=== PATIENT | male | born 1960 | race Caucasian/White ===

== ENCOUNTER 2023-04-10 08:07 | Outpatient (OUT) | payer SELFPAY ==
[2023-04-11 05:05] LABS: PSA, Free 0.93 ng/mL; Prostate Specific Ag 6.9 ng/mL (0.0-4.0)
== END 2023-04-10 08:08 | disposition home or self-care (01) ==
PROVIDERS: PCP Family Medicine; Visit Provider Family Medicine
DX: R97.20 Elevated prostate specific antigen [PSA] (principal)
CPT/HCPCS: 36415; 84153; 84154

== ENCOUNTER 2023-04-10 08:08 | Outpatient (OUT) | payer SELFPAY ==
[2023-04-10 08:33] LABS: INR 1.67; Prothrombin Time 17.2 sec (9.0-11.6)
== END 2023-04-10 08:09 | disposition home or self-care (01) ==
PROVIDERS: PCP Family Medicine; Visit Provider Family Medicine
DX: Z51.81 Encounter for therapeutic drug level monitoring (principal)
CPT/HCPCS: 36415; 85610

== ENCOUNTER 2023-07-29 09:09 | Outpatient (OUT) | payer SELFPAY ==
[2023-07-29 09:54] LABS: INR 3.49; Prothrombin Time 34.5 sec (9.0-11.6)
[2023-07-30 04:07] LABS: PSA, Free 1.02 ng/mL; Prostate Specific Ag 7.9 ng/mL (0.0-4.0)
== END 2023-07-29 09:10 | disposition home or self-care (01) ==
LOC: LAB 09:09
PROVIDERS: PCP Family Medicine; Visit Provider Family Medicine
DX: Z12.5 Encounter for screening for malignant neoplasm of prostate (principal); R97.20 Elevated prostate specific antigen [PSA]; Z51.81 Encounter for therapeutic drug level monitoring
CPT/HCPCS: 36415; 84153; 84154; 85610

== ENCOUNTER 2023-09-02 07:09 | Outpatient (OUT) | payer SELFPAY ==
--- NOTE | 2023-09-02 07:00 | NM_ITS ---
The [address] [address] Patient Name: SUKHDEEP POLANCO MRN: [id number] date: 1960 Sex: M Assigned Patient Location: CT Current Patient Location: CT Accession/Order Number: [id number] Exam Date: 09/02/2023 07:00 Report Date: 09/02/2023 11:25 At the request of: CESIA WEEKS Procedure: CT bone scan whole body EXAMINATION: CT bone scan whole body HISTORY: PROSTATE CANCER COMPARISON: No relevant comparison available. TECHNIQUE: After obtaining the patient's consent, 25.0 Technetium 99m MDP was injected intravenously. Images were obtained approximately two hours later. FINDINGS: Region: Whole-body ABNORMALITIES: Increased activity bilateral glenohumeral, acromioclavicular, wrist and right first metatarsal-phalangeal joint consistent with degenerative changes. Photopenia in the right hip consistent with arthroplasty. No focal areas of abnormality to suggest metastatic disease to the bones OTHER: Negative. CT/CT bone scan whole body IMPRESSION: No definite evidence of metastatic disease to the bones Electronically authenticated by: TRAVIS LI Date: 09/02/2023 11:25
--- OUTSIDE RECORDS SUMMARY | 2023-09-02 07:19 | XMS_ITS | CCD ---
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 Name Role Phone ELTANENITA, EHAB A Admitting Unavailable JANELL HUFFAB A Attending Unavailable ALEK ARTIS Primary Care Unavailable ALEK ARTIS Referring Unavailable Unavailable Primary Care Provider Alek Masterson MD Primary Care Provider ALEK ARTIS Primary Care Unavailable CARYL ACEVEDO Admitting Unavailable CARYL ACEVEDO Attending Unavailable [facility], [facility] Consulting Unavailable CARYL ACEVEDO Referring Unavailable ALEK ARTIS Primary Care Unavailable KUSHAL, DR GASTON Primary Care Unavailable MISC, DR BUSCH Admitting Unavailable MISC, DR BUSCH Attending Unavailable KUSHAL, DR GASTON Primary Care Unavailable KUSHAL, DR GASTON Admitting Unavailable DEVANGY, DR GASTON Attending Unavailable DEVANGY, DR GASTON Consulting Unavailable HOY, DR GASTON Primary Care Unavailable HOY, DR GASTON Admitting Unavailable KUSHAL, DR GASTON Attending Unavailable KUSHAL, DR GASTON Consulting Unavailable ZIEBER, DR ALL Hernández Consulting Unavailable AIMEE CLEMENT Attending Unavailable Alek Artis Primary Care Physician MD Chadd Bowling Attending Provider Chadd BOWLING Attending Unavailable Chadd BOWLING Attending Unavailable Alek Artis Referring Unavailable Chadd BOWLING Attending Unavailable Chadd Bowling Attending Unavailable Chadd Bowling Admitting Unavailable Allergies Allergy Classification Reported Allergen(s) Allergy Type Date of Onset Reaction(s) Facility Unclassified (1 source) 34748,00; Translations: [,00] Propensity to adverse reactions (disorder) 9 [facility] Repository (1 source) No Known Medication Allergies; Translations: [No Known Medication Allergies] Propensity to adverse reactions (disorder) [facility] Repository Medications Current Medications Medication Drug Class(es) Dates Sig (Normalized) Sig (Original) 30 ACTUAT fluticasone furoate 0.05 MG/ACTUAT / vilanterol 0.025 MG/ACTUAT Dry Powder Inhaler (3 sources) Start: 08-10-2023 take 1 puff(s) by inhalation once daily fluticasone-vilan terol 50 mcg-25 mcg/inh. inhalation powder puff(s), Inhalation, Daily, Refill(s) 0 Start Date: 08/10/23 Status: Ordered carvedilol 25 mg oral tablet (4 sources) alpha-Adrenergic Jazmyn, beta-Adrenergic Jazmyn Start: 08-10-2023 carvedilol 25 mg Tab Refills(s) 0 Start Date: 08/10/23 Status: Ordered take 1 tablet by mouth twice fernando ly carvediloL (COREG) 25 mg tablet Take 25 mg by mouth 2 (two) times a day. 0 Suspended ciprofloxacin 500 mg oral tablet (1 source) Quinolone Antimicrobial Start: 08-10-2023 End: 08-17-2023 Cipro 500 mg Tab 500 mg = 1 tab(s), Oral, BID, start 3 days prior to procedure, X 7 day(s), # 14 tab(s), Refills(s) 0, Pharmacy: [id number], 178, cm, 08/10/23 11:30:00 EST, Height/Length Dosing, 88.5, kg, 08/10/23 11:30:00 EST, Weight Dosing Start Date: 08/10/23 Stop Date: 08/17/23 Status: Ordered DilTIAZem (Eqv-Cardizem CD) 120 mg/24 hours oral capsule, extended release (3 sources) Start: 08-10-2023 DilTIAZem (Eqv-Cardizem CD) 120 mg/24 hours oral capsule, extended release Refills(s) 0 Start Date: 08/10/23 Status: Ordered lisinopril 10 mg oral tablet (3 sources) Angiotensin Converting Enzyme Inhibitor Start: 08-10-2023 lisinopril 10 mg Tab Refills(s) 0 Start Date: 08/10/23 Status: Ordered pravastatin sodium 40 mg oral tablet (4 sources) HMG-CoA Reductase Inhibitor Start: 08-10-2023 pravastatin 40 mg Ta b Refills(s) 0 Start Date: 08/10/23 Status: Ordered take 1 tablet by mouth at bedtim e pravastatin (PRAVACHOL) 40 mg tablet Take 40 mg by mouth at bedtime. 0 Suspended tamsulosin hydrochloride 0.4 mg oral capsule (3 sources) alpha-Adrenergic Jazmyn Start: 08-10-2023 take 1 capsule by mouth once daily tamsulosin 0.4 mg Cap 0.4 mg = 1 cap(s), Oral, Daily, # 30 cap(s), Refills(s) 11, Pharmacy: [id number], 178, cm, 08/10/23 11:30:00 EST, Height/Length Dosing, 88.5, kg, 08/10/23 11:30:00 EST, Weight Dosing Start Date: 08/10/23 Status: Ordered warfarin sodium 6 mg oral tablet (4 sources) Vitamin K Antagonist Start: 08-10-2023 warfarin 6 mg Tab Refills(s) 0 Start Date: 08/10/23 Status: Ordered take 1 tablet by mouth at bedtim e warfarin (COUMADIN) 6 mg tablet Take 6 mg by mouth at bedtime. 0 Suspended Completed/Discontinued Medications Medication Drug Class(es) Dates Sig (Normalized) Sig (Original) aspirin 81 mg oral tablet (1 source) Platelet Aggregation Inhibitor, Nonsteroidal Anti-inflammatory Drug take 81 mg by mouth once daily ASPIRIN ORAL Take 81 mg by mouth 1 (one) time each day. 0 Suspended Beclomethasone (1 source) Corticosteroid take 2 puff(s) by mouth twice daily beclomethasone (QVAR) 40 mcg/actuation inhaler Inhale 2 puffs 2 (two) times a day. Rinse mouth with water after use to reduce aftertaste and incidence of candidiasis. Do not swallow. 0 Suspended 24 hr dilTIAZem hydrochloride 120 mg extended release oral capsule (1 source) Calcium Channel Jazmyn take 1 capsule by mouth at bedtime, then take 1 capsule by mouth every twenty-four hours dilTIAZem CD (CARDIZEM CD) 120 mg 24 hr capsule Take 120 mg by mouth at bedtime. 0 Suspended fluticasone propionate 0.05 mg/actuat metered dose nasal spray (1 source) Corticosteroid take 1 spray(s) nasal route twice daily fluticasone propionate (Flonase Allergy Relief) 50 mcg/actuation nasal spray Administer 1 spray into each nostril 2 (two) times a day. Shake gently. Before first use, prime pump. After use, clean tip and replace cap. 0 Suspended sacubitril 24 mg / valsartan 26 mg oral tablet (1 source) Angiotensin 2 Receptor Jazmyn take 1 tablet by mouth twice daily sacubitriL-valsartan (ENTRESTO) 24-26 mg per tablet Take 1 tablet by mouth 2 (two) times a day. 0 Suspended Problems Problem Classification Problem Date Documented Date Episodic/Chronic Abdominal hernia (6 sources) Inguinal hernia; Translations: [Unilateral inguinal hernia, without obstruction or gangrene, not specified as recurrent] Onset: 08-10-2023 Episodic Asthma (3 sources) Asthma 08-10-2023 Chronic Cancer of prostate (2 sources) Malignant neoplasm of prostate; Translations: [Malignant tumor of prostate] Onset: 08-31-2023 Chronic Cardiac dysrhythmias (7 sources) Paroxysmal atrial fibrillation; Translations: [Unspecified atrial fibrillation] Onset: 01-02-2023 Chronic Congestive heart failure; nonhypertensive (2 sources) Chronic systolic (congestive) heart failure; Translations: [Chronic systolic (congestive) heart failure] Onset: 01-02-2023 Chronic Coronary atherosclerosis and other heart disease (4 sources) Atherosclerotic heart disease of [place] coronary artery without angina pectoris; Translations: [Coronary atherosclerosis due to lipid rich plaque] Onset: 01-02-2023 Chronic Disorders of lipid metabolism (2 sources) Mixed hyperlipidemia; Translations: [Mixed hyperlipidemia] Onset: 01-02-2023 Chronic Essential hypertension (3 sources) Hypertensive disorder 08-06-2023 Chronic Hyperplasia of prostate (6 sources) Benign prostatic hypertrophy with outflow obstruction; Translations: [Benign prostatic hyperplasia with lower urinary tract symptoms] Onset: 08-10-2023 Chronic Hypertension with complications and secondary hypertension (2 sources) Hypertensive heart disease with heart failure; Translations: [Hypertensive heart disease with heart failure] Onset: 01-02-2023 Chronic Osteoarthritis (5 sources) Osteoarthritis of right hip joint; Translations: [Unilateral primary osteoarthritis, right hip] Onset: 06-26-2021 06-26-2021 Chronic Other and ill-defined heart disease (3 sources) Heart disease 08-06-2023 Chronic Other connective tissue disease (1 source) History of total hip arthroplasty; Translations: [Presence of right artificial hip joint] Onset: 06-26-2021 06-26-2021 Chronic Other connective tissue disease (1 source) Presence of right artificial hip joint; Translations: [PRESENCE RIGHT ARTIFICIAL HIP JOINT] Onset: 07-03-2021 Chronic Other connective tissue disease (4 sources) Pain in left lower leg; Translations: [PAIN IN LEFT LOWER LEG] Onset: 05-26-2022 Episodic Other nervous system disorders (1 source) Polyneuropathy, unspecified; Translations: [POLYNEUROPATHY UNSPECIFIED] Onset: 05-28-2022 Chronic Other screening for suspected conditions (not mental disorders or infectious disease) (6 sources) Raised prostate specific antigen; Translations: [Elevated prostate specific antigen [PSA]] Onset: 08-10-2023 Episodic Tamym-; endo-; and myocarditis; cardiomyopathy (except that caused by tuberculosis or sexually transmitted disease) (2 sources) Cardiomyopathy in diseases classified elsewhere; Translations: [Cardiomyopathy in diseases classified elsewhere] Onset: 01-02-2023 Chronic Residual codes; unclassified (1 source) Pain; Translations: [Pain, unspecified] Episodic Spondylosis; intervertebral disc disorders; other back problems (2 sources) Other intervertebral disc degeneration, lumbar region; Translations: [Other intervertebral disc degeneration, lumbosacral region] Onset: 05-28-2022 Chronic Unclassified (1 source) CONTACT W/AND (SUSP) EXPOS COVID-19; Translations: [CONTACT W/AND (SUSP) EXPOS COVID-19] Onset: 07-03-2021 Results Test Name Value Interpretation Reference Range Facility Ambulatory Visit Summaryon 0 08-31-2023 Ambulatory Visit Summary SHERRISU[facility]DEEP M :1960 Visit Date:08/31/2023 Ambulatory Visit Instructions Your Diagnosis Prostate cancer BPH with urinary obstruction Inguinal hernia Your Care Team Attending Physician - MICKY GARRISON, Chadd Hernández Primary Care Physician - Alek Artis MD This Is Your Medications List Contact prescribing physician if questions or concerns carvedilol (carvedilol 25 mg Tab) diltiazem (DilTIAZem (Eqv-Cardizem CD) 120 mg/24 hours oral capsule, extended release) fluticasone-vilanter ol (fluticasone-vilante rol 50 mcg-25 mcg/inh. inhalation powder) lisinopril (lisinopril 10 mg Tab) pravastatin (pravastatin 40 mg Tab) tamsulosin (tamsulosin 0.4 mg Cap) warfarin (warfarin 6 mg Tab) Procedures Performed Transrectal biopsy of prostate using ultrasound (US) guidance (08/25/2023), Cardiac catheter, Hip replacement, Sinus node. Discharge Vitals Heart Rate (Peripheral) 68 Respiratory Rate 16 Blood Pressure 131/88 Height 70 in Height 178 cm Weight 194.7 lb Weight 88.5 kg BMI 27.93 What to do next You Need to Schedule the Following Appointments Follow Up with MICKY GARRISON, YESENIA Rincon When: Comments: f/u pending results of PSMA and bone scans Where: [facility] [address], [place] [address] [phone] Medications What How Much When Why Instructions Unchanged carvedilol (carvedilol 25 mg Tab) Contact prescribing physician if questions or concerns Unchanged diltiazem (DilTIAZem (Eqv-Cardizem CD) 120 mg/ 24 hours oral capsule, extended release) Contact prescribing physician if questions or concerns Unchanged fluticasone-vilanter ol (fluticasone-vilante rol 50 mcg-25 mcg/ inh. inhalation powder) Inhalation Every day Contact prescribing physician if questions or concerns Unchanged lisinopril (lisinopril 10 mg Tab) Contact prescribing physician if questions or concerns Unchanged pravastatin (pravastatin 40 mg Tab) Contact prescribing physician if questions or concerns Unchanged tamsulosin (tamsulosin 0.4 mg Cap) 1 Capsules By Mouth Every day BPH with urinary obstruction Contact prescribing physician if questions or concerns Unchanged warfarin (warfarin 6 mg Tab) Contact prescribing physician if questions or concerns Allergies No Known Allergies No Known Medication Allergies Problems Ongoing - Any problem that you are currently receiving treatment for. A-fib Asthma BPH with urinary obstruction Elevated PSA Heart disease Hypertension Inguinal hernia Prostate cancer Patient Survey You may receive a survey via text or e-mail asking about your office visit. Please share your experience with us by completing your survey. We appreciate your feedback and thank you for choosing us for your care. Education Materials Prostate Cancer The prostate is a small gland that produces fluid that makes up semen (seminal fluid). It is located below the bladder in men, in front of the rectum. Prostate cancer is the abnormal growth of cells in the prostate gland. What are the causes? The exact cause of this condition is not known. What increases the risk? You are more likely to develop this condition if: ? You are 65 years of age or older. ? You have a family history of prostate cancer. ? You have a family history of breast and ovarian cancer. ? You have genes that are passed from parent to child (inherited), such as BRCA1 and BRCA2. ? You have Way syndrome. men and men of descent are diagnosed with prostate cancer at higher rates than other men. The reasons for this are not well understood and are likely due to a combination of genetic and environmental factors. What are the signs or symptoms? Symptoms of this condition include: ? Problems with urination. This may include: ? A weak or interrupted flow of urine. ? Trouble starting or stopping urination. ? Trouble emptying the bladder all the way. ? The need to urinate more often, especially at night. ? Blood in urine or semen. ? Persistent pain or discomfort in the lower back, lower abdomen, or hips. ? Trouble getting an erection. ? Weakness or numbness in the legs or feet. How is this diagnosed? This condition can be diagnosed with: ? A digital rectal exam. For this exam, a health care provider inserts a gloved finger into the rectum to feel the prostate gland. ? A blood test called a prostate-specific antigen (PSA) test. ? A procedure in which a sample of tissue is taken from the prostate and checked under a microscope (prostate biopsy). ? An imaging test called transrectal ultrasonography. Once the condition is diagnosed, tests will be done to determine how far the cancer has spread. This is called staging the cancer. Staging may involve imaging tests, such as a bone scan, CT scan, PET scan, or MRI. Stages of prostate cancer The stages of prostate cancer are as fo (more content not included)... Normal [facility] Patient Educationon 08-31-19 Patient Education Oncology Prostate Cancer The prostate is a small gland that produces fluid that makes up semen (seminal fluid). It is located below the bladder in men, in front of the rectum. Prostate cancer is the abnormal growth of cells in the prostate gland. What are the causes? The exact cause of this condition is not known. What increases the risk? You are more likely to develop this condition if: ? You are 65 years of age or older. ? You have a family history of prostate cancer. ? You have a family history of breast and ovarian cancer. ? You have genes that are passed from parent to child (inherited), such as BRCA1 and BRCA2. ? You have Way syndrome. men and men of descent are diagnosed with prostate cancer at higher rates than other men. The reasons for this are not well understood and are likely due to a combination of genetic and environmental factors. What are the signs or symptoms? Symptoms of this condition include: ? Problems with urination. This may include: ? A weak or interrupted flow of urine. ? Trouble starting or stopping urination. ? Trouble emptying the bladder all the way. ? The need to urinate more often, especially at night. ? Blood in urine or semen. ? Persistent pain or discomfort in the lower back, lower abdomen, or hips. ? Trouble getting an erection. ? Weakness or numbness in the legs or feet. How is this diagnosed? This condition can be diagnosed with: ? A digital rectal exam. For this exam, a health care provider inserts a gloved finger into the rectum to feel the prostate gland. ? A blood test called a prostate-specific antigen (PSA) test. ? A procedure in which a sample of tissue is taken from the prostate and checked under a microscope (prostate biopsy). ? An imaging test called transrectal ultrasonography. Once the condition is diagnosed, tests will be done to determine how far the cancer has spread. This is called staging the cancer. Staging may involve imaging tests, such as a bone scan, CT scan, PET scan, or MRI. Stages of prostate cancer The stages of prostate cancer are as follows: ? Stage 1 (I). At this stage, the cancer is found in the prostate only. The cancer is not visible on imaging tests, and it is usually found by accident, such as during prostate surgery. ? Stage 2 (II). At this stage, the cancer is more advanced than it is in stage 1, but the cancer has not spread outside the prostate. ? Stage 3 (III). At this stage, the cancer has spread beyond the outer layer of the prostate to nearby tissues. The cancer may be found in the seminal vesicles, which are near the bladder and the prostate. ? Stage 4 (IV). At this stage, the cancer has spread to other parts of the body, such as the lymph nodes, bones, bladder, rectum, liver, or lungs. Prostate cancer grading Prostate cancer is also graded according to how the cancer cells look under a microscope. This is called the Lima score and the total score can range from 6?10, indicating how likely it is that the cancer will spread (metastasize) to other parts of the body. The higher the score, the greater the likelihood that the cancer will spread. ? Lima 6 or lower: This indicates that the cancer cells look similar to normal prostate cells (well differentiated). ? Lima 7: This indicates that the cancer cells look somewhat similar to normal prostate cells (moderately differentiated). ? Christine 8, 9, or 10: This indicates that the cancer cells look very different than normal prostate cells (poorly differentiated). How is this treated? Treatment for this condition depends on several factors, including the stage of the cancer, your age, personal preferences, and your overall health. Talk with your health care provider about treatment options that are recommended for you. Common treatments include: ? Observation for early stage prostate cancer (active surveillance). This involves having exams, blood tests, and in some cases, more biopsies. For some men, this is the only treatment needed. ? Surgery. Types of surgeries include: ? Open surgery (radical prostatectomy). In this surgery, a larger incision is made to remove the prostate. ? A laparoscopic radical prostatectomy. This is a surgery to remove the prostate and lymph nodes through several small incisions. It is often referred to as a minimally invasive surgery. ? A robotic radical prostatectomy. This is laparoscopic surgery to remove the prostate and lymph nodes with the help of robotic arms that are controlled by the surgeon. ? Cryoablation. This is surgery to freeze and destroy cancer cells. ? Radiation treatment. Types of radiation treatment include: ? External beam radiation. This type aims beams of radiation from outside the body at the prostate to destroy cancerous cells. ? Brachytherapy. This type uses radioactive needles, seeds, wires, or tubes that are implanted into the prostate gland. Like external be (more content not included)... Normal [facility] Urology Office/Clinic Noteon 08-31-2023 Urology Office/Clinic Note Chief Complaint S/P TRUS/Bx HPI Staff F/u to review TRUS Bx pathology. Previous dx of elevated PSA, BPH with urinary obstruction, inguinal hernia and A-fib. Most current PSA done 07/29/23 is 7.9 and 12.9%. Denies post op bleeding. Did have some discomfort. Has subsided. History of Present Illness Tests reviewed: reviewed path report I have reviewed the previous health record information and history for this patient from Dr. Bowling. I have reviewed and verified the staff HPI to be accurate for this encounter. Review of Systems PHQ Score Initial Depression Screen Score: 0 SCORE ROS - Provider Constitutional: denies weight loss, denies hot flashes. Eyes: denies eye problems. Gastrointestinal: denies nausea, denies vomiting. Cardiovascular: denies chest pain or angina. Integumentary: no dryness Musculoskeletal: denies musculoskeletal symptoms. ENMT: denies otolaryngeal symptoms. Respiratory: no shortness of breath. Heme/Lymph: denies easy bleeding tendency, denies easy bruising tendency. Psychiatric: no confusion, no anxiety. Genitourinary: See HPI. Physical Exam Vitals & Measurements HR: 68(Peripheral) RR: 16 BP: 131/88 HT: 70 in HT: 178 cm WT: 88.5 kg WT: 194.7 lb BMI: 27.93 General Appearance: alert, no distress, well nourished, well developed male. Genitourinary: normal scrotum, normal testes, normal urethra, normal epididymis, normal vas deferens/spermatic cord. Flank Pain: none. Bladder: nonpalpable. Assessment/Plan 1. Prostate cancer (C61: Malignant neoplasm of prostate) PSA 04/10/23 - 6.9 & 13.5% 07/29/23 - 7.9 & 12.9% No known fam hx of prostate ca. ARYAN 08/10/23: 45gms, benign TRUS/bx 08/26/23 - GS 9 (4+5), GG5. +6/12 cores on L, also GS 8 (3+5) in one core and (4+4) in one and GS 7 (4+3) in one core and benign on R side. 90% highest percent core involvement. Perineural invasion. States he is doing well PO TRUS/bx. Denies any current pain. The pathology report, which shows the presence of prostate cancer, was disclosed to the patient in detail today. I discussed with the patient all the treatment options, including brachytherapy, EBRT, SBRT, ADT, combination of therapy options. I went over the pros and cons of each therapy today, and the [employer] ([employer]) prostate cancer book was provided. Explained that he has high grade and high volume cancer and will definitely require treatment. Discussed staging studies. If staging shows mets, absolutely not a candidate for RALP and combination therapy is advised. If staging is neg for mets, pt to highly consider prostatectomy. Discussed PSA level does not likely indicated metastatic disease but high grade and high volume cancer may indicate otherwise. Explained possible SEs of radiation. Also discussed possible referral to radiation oncology pending staging resutls. -Obtain PSMA PET scan and bone scan, pt to be called with results 2. BPH with urinary obstruction (N40.1: Benign prostatic hyperplasia with lower urinary tract symptoms) Taking Tamsulosin 0.4mg qd. 3. Inguinal hernia (K40.90: Unilateral inguinal hernia, without obstruction or gangrene, not specified as recurrent) Has had a L inguinal hernia for a while. States he is waiting to get this treated until he has medicare. PE 08/10/23: moderate L inguinal hernia [1] Follow-up With When Contact Information MICKY GARRISON, Chadd Hernández, URL [facility] [address], [place] [phone] Additional Instructions: f/u pending results of PSMA and bone scans Patient Education Prostate Cancer I, Radha Balderas, personally scribed for Dr. Bowling on 08/31/2023 10:25:27. . Documentation recorded by the scribe, Radha Balderas, accurately reflects the services(s) I performed and decisions made by me. Authenticated by Dr. Bowling on 08/31/2023 10:33:59. Problem List/Past Medical History Ongoing A-fib Asthma BPH with urinary obstruction Elevated PSA Heart disease Hypertension Inguinal hernia Prostate cancer Historical No qualifying data Procedure/Surgical History Transrectal biopsy of prostate using ultrasound (US) guidance (08/25/2023), Cardiac catheter, Hip replacement, Sinus node. Medications carvedilol 25 mg Tab DilTIAZem (Eqv-Cardizem CD) 120 mg/24 hours oral capsule, extended release fluticasone-vilanter ol 50 mcg-25 mcg/inh. inhalation powder, Inhalation, Daily lisinopril 10 mg Tab pravastatin 40 mg Tab tamsulosin 0.4 mg Cap, 0.4 mg= 1 cap(s), Oral, Daily, 11 refills warfarin 6 mg Tab Allergies No Known Allergies No Known Medication Allergies Social History Tobacco Never (less than 100 in lifetime) Tobacco Use:. Never Smokeless Tobacco Use:. Household tobacco concerns: No. Yes, 08/31/2023 Family History Breast cancer: Sister. Immunizations Vaccine Date Status Comments influenza virus vaccine, inactivated - Not Given Postpone due to refusal SARS-CoV-2 (COVID-19) mRNA [id number] vax (more content not included)... Normal [facility] Comment on above: Result Comment: Elec tronically Signed By: Chadd BOWLING MD\.br\Date and Time Signed: 08/31/23 10:34 EST\.br\Electronically Co-Signed By: Radha Balderas\.br\Date and Time Co-Signed: 08/31/23 10:25 EST Lab Reportson 08-28-2023 Lab Reports [id number] #1.00TIFF [facility] Consent for Procedure/Surger yon 08-26-2023 Consent for Procedure/Surgery [id number] 9#1.00TIFF [facility] Ambulatory Visit Summaryon 0 08-25-2023 Ambulatory Visit Summary SUKHDEEP GAMINO :1960 Visit Date:08/25/2023 Ambulatory Visit Instructions Your Diagnosis Elevated PSA BPH with urinary obstruction Inguinal hernia A-fib Your Care Team Attending Physician - Chadd BOWLING MD Primary Care Physician - Alek Artis MD This Is Your Medications List tamsulosin (tamsulosin 0.4 mg Cap) Contact prescribing physician if questions or concerns carvedilol (carvedilol 25 mg Tab) diltiazem (DilTIAZem (Eqv-Cardizem CD) 120 mg/24 hours oral capsule, extended release) fluticasone-vilanter ol (fluticasone-vilante rol 50 mcg-25 mcg/inh. inhalation powder) lisinopril (lisinopril 10 mg Tab) pravastatin (pravastatin 40 mg Tab) warfarin (warfarin 6 mg Tab) Procedures Performed Transrectal biopsy of prostate using ultrasound (US) guidance (08/25/2023), Cardiac catheter, Hip replacement, Sinus node. Discharge Vitals Heart Rate (Peripheral) 82 Blood Pressure 128/84 Height 178 cm Height 70 in Weight 88 kg Weight 193.6 lb BMI 27.77 What to do next Scheduled Follow-Up Appointments Thursday 10:30 AM EST With: MICKY GARRISON, Chadd Hernández Where: [facility] Normal [facility] Roel 08-25-2023 L Specimen: [id number] Received: 08/26/23 Status: ROSA Pearce Num: [id number] Spec Type: Surgical Subm Dr: Chadd Bowling MD Tissues: A Prostate - Needle Biopsy (LT BASE) B Prostate - Needle Biopsy (LT LATERAL BASE) C Prostate - Needle Biopsy (LT MID) D Prostate - Needle Biopsy (LT LATERAL MID) E Prostate - Needle Biopsy (LT APEX) F Prostate - Needle Biopsy (LT LATERAL APEX) G Prostate - Needle Biopsy (RT BASE) H Prostate - Needle Biopsy (RT LATERAL BASE) I Prostate - Needle Biopsy (RT MID) J Prostate - Needle Biopsy (RT LATERAL MID) K Prostate - Needle Biopsy (RT APEX) L Prostate - Needle Biopsy (RT LATERAL APEX) Procedures: HE/24, Gross/Micro L4/12 Age/ Patient Sex Location Account Attending Physician Sukhdeep Gamino 62/M [place] [id number] Chadd Bowling MD SPEC NUM: [id number] RECD: 08/26/23 STATUS: ROSA PEARCE NUM: [id number] BRIDGETTE: 08/25/[address]: Chadd Bowling MD ENTERED: 08/26/[address] [facility] [address]: SPEC TYPE: Surgical DEPT: S ORDERED: HE/24, Gross/Micro L4/12 ORDERED: HE/24, Gross/Micro L4/12, USS/24 Pathological Diagnosis A. Prostate, left base, needle core biopsies: - Invasive prostate adenocarcinoma, Lima pattern 3+5, grade group 4. - Adenocarcinoma involves 40% of the biopsy tissue. - Focal perineural invasion is identified. - Negative for lymphovascular invasion. B. Prostate, left lateral base, needle core biopsy: - Invasive prostate adenocarcinoma, Christine pattern 4+5, grade group 5 - Adenocarcinoma involves 90% of the biopsy tissue. - Perineural invasion is identified. - Negative for lymphovascular invasion. C. Prostate, left mid, needle core biopsy: - Invasive prostate adenocarcinoma, Christine pattern 4+5, grade group 5 Specimen: [id number] Received: 08/26/23 Status: ROSA Pearce Num: [id number] Spec Type: Surgical Subm Dr: Chadd Bowling MD Tissues: A Prostate - Needle Biopsy (LT BASE) B Prostate - Needle Biopsy (LT LATERAL BASE) C Prostate - Needle Biopsy (LT MID) D Prostate - Needle Biopsy (LT LATERAL MID) E Prostate - Needle Biopsy (LT APEX) F Prostate - Needle Biopsy (LT LATERAL APEX) G Prostate - Needle Biopsy (RT BASE) H Prostate - Needle Biopsy (RT LATERAL BASE) I Prostate - Needle Biopsy (RT MID) J Prostate - Needle Biopsy (RT LATERAL MID) K Prostate - Needle Biopsy (RT APEX) L Prostate - Needle Biopsy (RT LATERAL APEX) Procedures: , Gross/Micro Patient: Sukhdeep Gamino [id number] (Continued) Specimen: [id number] Received: 08/26/23 (Continued) Pathological Diagnosis (Continued) Signed (signature on file) Nani Ambrocio MD 08/27/23 0959 Specimen: [id number] Received: 08/26/23 Status: ROSA Pearce Num: [id number] Spec Type: Surgical Subm Dr: Chadd Bowling MD Tissues: A Prostate - Needle Biopsy (LT BASE) B Prostate - Needle Biopsy (LT LATERAL BASE) C Prostate - Needle Biopsy (LT MID) D Prostate - Needle Biopsy (LT LATERAL MID) E Prostate - Needle Biopsy (LT APEX) F Prostate - Needle Biopsy (LT LATERAL APEX) G Prostate - Needle Biopsy (RT BASE) H Prostate - Needle Biopsy (RT LATERAL BASE) I Prostate - Needle Biopsy (RT MID) J Prostate - Needle Biopsy (RT LATERAL MID) K Prostate - Needle Biopsy (RT APEX) L Prostate - Needle Biopsy (RT LATERAL APEX) Procedures: Severiano/Joann Patient: Sukhdeep Gamino [id number] (Continued) Specimen: [id number] Received: 08/26/23 (Continued) Pathological Diagnosis (Continued) - Adenocarcinoma involves 50% of the biopsy tissue. - Negative for lymphovascular and perineural invasion. D. Prostate, left lateral mid, needle core biopsy: - Invasive prostate adenocarcinoma, Lima pattern 4+5, minor 3, grade group 5 - Adenocarcinoma involves 60% of the biopsy tissue. - Negative for lymphovascular and perineural invasion E. Prostate, left apex, needle core biopsy: - Invasive prostate adenocarcinoma, Lima pattern 4+3, grade group 3 - Adenocarcinoma involves 60% of the biopsy tissue. - Negative for lymphovascular and perineural invasion F. Prostate, left lateral apex, needle core biopsy: - Invasive prostate adenocarcinoma Lima pattern 4+4, Minor 5, grade group 4 - Adenocarcinoma involves 40% of the biopsy tissue. - Negative for lymphovascular and perineural invasion. G. Prostate, (more content not included)... [facility] Patient Educationon 08-25-19 Patient Education Oncology Transrectal Ultrasound-Guided Prostate Biopsy, Care After The following information offers guidance on how to care for yourself after your procedure. Your health care provider may also give you more specific instructions. If you have problems or questions, contact your health care provider. What can I expect after the procedure? After the procedure, it is common to have: ? Pain and discomfort near your rectum, especially while sitting. ? Dovray-colored urine due to small amounts of blood in your urine. ? A burning feeling while urinating. ? Blood in your stool (feces) or bleeding from your rectum. ? Blood in your semen. Follow these instructions at home: Medicines ? Take sjqp-ovy-mlwtvwi and prescription medicines only as told by your health care provider. ? If you were given a sedative during your procedure, it can affect you for several hours. Do not drive or operate machinery until your health care provider says that it is safe. ? If you were prescribed an antibiotic medicine, take it as told by your health care provider. Do not stop using the antibiotic even if you start to feel better. Activity ? Return to your normal activities as told by your health care provider. Ask your health care provider what activities are safe for you. ? Ask your health care provider when it is okay for you to resume sexual activity. ? You may have to avoid lifting. Ask your health care provider how much you can safely lift. General instructions ? Drink enough fluid to keep your urine pale yellow. ? Watch your urine, stool, and semen for new or increased bleeding. ? Keep all follow-up visits. This is important. Contact a health care provider if: ? You have any of the following: ? Blood clots in your urine or stool. ? Blood in your urine more than 2 weeks after the procedure. ? Blood in your semen more than 2 months after the procedure. ? New or increased bleeding in your urine, stool, or semen. ? Severe pain in your abdomen. ? Your urine smells bad or unusual. ? You have trouble urinating. ? Your lower abdomen feels firm. ? You have problems getting an erection. ? You have nausea or you vomit. Get help right away if: ? You have a fever or chills. This could be a sign of infection. ? You have bright red urine. ? You have severe pain that does not get better with medicine. ? You cannot urinate. Summary ? After this procedure, it is common to have pain and discomfort around your rectum, especially while sitting. ? You may have blood in your urine and stool after the procedure. ? It is common to have blood in your semen after this procedure. ? Get help right away if you have a fever or chills. This could be a sign of infection. This information is not intended to replace advice given to you by your health care provider. Make sure you discuss any questions you have with your health care provider. Document Revised: 01/13/2022 Document Reviewed: 01/13/2022 [employer] Patient Education ? 2022 [employer] Mayela Nolasco [facility] Urology Office/Clinic Noteon 08-25-2023 Urology Office/Clinic Note Chief Complaint Pt is here for TRUS/bx HPI Staff Pt is here for TRUS BX History of Present Illness Tests reviewed: none I have reviewed the previous health record information and history for this patient from Dr. Bowling. I have reviewed and verified the staff HPI to be accurate for this encounter. Review of Systems PHQ Score Initial Depression Screen Score: 0 SCORE ROS - Provider Constitutional: denies weight loss, denies hot flashes. Eyes: denies eye problems. Gastrointestinal: denies nausea, denies vomiting. Cardiovascular: denies chest pain or angina. Integumentary: no dryness Musculoskeletal: denies musculoskeletal symptoms. ENMT: denies otolaryngeal symptoms. Respiratory: no shortness of breath. Heme/Lymph: denies easy bleeding tendency, denies easy bruising tendency. Psychiatric: no confusion, no anxiety. Genitourinary: See HPI. Physical Exam Vitals & Measurements HR: 82(Peripheral) BP: 128/84 HT: 70 in HT: 178 cm WT: 88 kg WT: 193.6 lb BMI: 27.77 General Appearance: alert, no distress, well nourished, well developed male. Genitourinary: normal scrotum, normal testes, normal urethra, normal epididymis, normal vas deferens/spermatic cord. Flank Pain: none. Bladder: nonpalpable. Procedure Operative Information Anesthesia Type: Local Procedure: Transrectal Ultrasound and Transrectal Ultrasound-Guided Biopsy of the Prostate Complications: None Surgical risks, benefits, details of the procedure have been explained to the patient. Full informed consent has been obtained. Intraoperative Information Prepped: The patient was brought into the office suite and placed in the modified left lateral Mckeon position. The patient was draped appropriately. 80 mg Gentamicin IM injection administered. Procedure: Then 2% Xylocaine jelly was used for intrarectal anesthesia. After waiting several minutes, a well lubricated ultrasound probe was introduced per rectum. The prostate was carefully evaluated in the AP and Sagittal views. Volume: 20.8mL Specimens Removed: A total of 12 biopsies were taken, 6 from each side, and sent to pathology. Postoperative Information The patient tolerated the procedure well and was discharged home in satisfactory condition. The patient was instructed to finish antibiotics, avoid strenuous activity, and go to the emergency room for gross bleeding, fever, or chills. Radiology Report Procedure: Transrectal US guided needle biopsy of the prostate Narrative: Ultrasound probe is introduced and performed in the longitudinal and transverse plains. The prostatic capsule and seminal vesicles appear to be within normal limits. Ultrasound guidance was then utilized to obtain 12 biopsies. These were sent to pathology for evaluation. The gland measures: 39.8 MM Length, 47.0 MM Width, 21.3 MM Depth, with a calculated volume of 20.8 CC. The peripheral zone demonstrates: _ Rest of the prostate demonstrates: _ Assessment/Plan 1. Elevated PSA (R97.20: Elevated prostate specific antigen [PSA]) PSA 04/10/23 - 6.9 & 13.5% 07/29/23 - 7.9 & 12.9% No known fam hx of prostate ca. ARYAN 08/10/23: 45gms, benign Pt had IO TRUS/bx today without complications. Pathology to be sent to [facility] [place]. -F/u scheduled 09/11/23 to review path report 2. BPH with urinary obstruction (N40.1: Benign prostatic hyperplasia with lower urinary tract symptoms) IPSS (6). Started Tamsulosin 0.4mg qd at prior OV. 3. Inguinal hernia (K40.90: Unilateral inguinal hernia, without obstruction or gangrene, not specified as recurrent) Has had a L inguinal hernia for a while. States he is waiting to get this treated until he has medicare. PE 08/10/23: moderate L inguinal hernia 4. A-fib (I48.91: Unspecified atrial fibrillation) Pt received clearance from Dr. Artis to stop warfarin for 5 days and asa for 7 days. Pt to resume these tomorrow. Follow-up With When Contact Information MICKY GARRISON, Chadd Hernández, URL [facility] [address], [place] [address] [phone] Additional Instructions: review path on 09/11/23 Patient Education Transrectal Ultrasound-Guided Prostate Biopsy, Care After IRadha, personally scribed for Dr. Bowling on 08/25/2023 15:48:19. . Documentation recorded by the judiibRadha farrar, accurately reflects the services(s) I performed and decisions made by me. Authenticated by Dr. Bowling on 08/25/2023 15:49:08. Problem List/Past Medical History Ongoing A-fib Asthma BPH with urinary obstruction Elevated PSA Heart disease Hypertension Inguinal hernia Historical No qualifying data Procedure/Surgical History Transrectal biopsy of prostate using ultrasound (US) guidance (08/25/2023), Cardiac catheter, Hip replacement, Sinus node. Medications carvedilol 25 mg Tab DilTIAZem (Eqv-Cardizem CD) 120 mg/24 hours oral capsule, extended release fluticasone-vilanter ol 50 mcg-25 mcg/inh. inhalation powd (more content not included)... [facility] Comment on above: Result Comment: Elec tronically Signed By: Chadd BOWLING MD\.br\Date and Time Signed: 08/25/23 15:49 EST\.br\Electronically Co-Signed By: Radha Balderas\.br\Date and Time Co-Signed: 08/25/23 15:48 EST Lab Reportson 08-20-2023 Lab Reports [id number]# 1.00TIFF [facility] Patient Correspondenceon Patient Correspondence [id number]# 1.00TIFF [facility] Physician Referralon 024 Physician Referral [id number] #1.00TIFF [facility] Screenson 08-11-2023 Screens [id number] 7#1.00TIFF [facility] Ambulatory Visit Summaryon 0 08-10-2023 Ambulatory Visit Summary SUKHDEEP GAMINO :1960 Visit Date:08/10/2023 Ambulatory Visit Instructions Your Diagnosis Elevated PSA BPH with urinary obstruction A-fib Inguinal hernia Tests Performed Urnls Dip Stick Auto w/o Microscopy POC 66193 Your Care Team Attending Physician - Chadd BOWLING MD Primary Care Physician - Alek Artis MD Referring Physician - Alek Artis MD This Is Your Medications List Contact prescribing physician if questions or concerns carvedilol (carvedilol 25 mg Tab) diltiazem (DilTIAZem (Eqv-Cardizem CD) 120 mg/24 hours oral capsule, extended release) fluticasone-vilanter ol (fluticasone-vilante rol 50 mcg-25 mcg/inh. inhalation powder) lisinopril (lisinopril 10 mg Tab) pravastatin (pravastatin 40 mg Tab) warfarin (warfarin 6 mg Tab) Procedures Performed Cardiac catheter, Hip replacement, Sinus node. Discharge Vitals Heart Rate (Peripheral) 80 Respiratory Rate 16 Blood Pressure 142/105 Height 70 in Height 178 cm Weight 194.7 lb Weight 88.5 kg BMI 27.93 What to do next You Need to Schedule the Following Appointments Follow Up with MICKY GARRISON, YESENIA Rincon When: Comments: sched TRUS/bx Where: [facility] [address], [place] [address] [phone] Medications What How Much When Instructions Unchanged carvedilol (carvedilol 25 mg Tab) Contact prescribing physician if questions or concerns Unchanged diltiazem (DilTIAZem (Eqv-Cardizem CD) 120 mg/ 24 hours oral capsule, extended release) Contact prescribing physician if questions or concerns Unchanged fluticasone-vilanter ol (fluticasone-vilante rol 50 mcg-25 mcg/ inh. inhalation powder) Every day Contact prescribing physician if questions or concerns Unchanged lisinopril (lisinopril 10 mg Tab) Contact prescribing physician if questions or concerns Unchanged pravastatin (pravastatin 40 mg Tab) Contact prescribing physician if questions or concerns Unchanged warfarin (warfarin 6 mg Tab) Contact prescribing physician if questions or concerns Test Results Urnls Dip Stick Auto w/o Microscopy POC 40206 (08/10/2023) Bilirubin Urine Dipstick - Negative Blood Urine Dipstick - Negative Glucose Urine Dipstick - Negative Ketones Urine Dipstick - Negative Leukocytes Urine Dipstick - Negative Nitrite Urine Dipstick - Negative Protein Urine Dipstick - Negative Specific [place] Urine Dipstick - 1.025 Urine Appearance Urine Dipstick - Clear Urine Color Urine Dipstick - Yellow Urobilinogen Urine Dipstick - Normal 0.2-1 EU/dl pH Urine Dipstick - 5 Allergies No Known Allergies No Known Medication Allergies Problems Ongoing - Any problem that you are currently receiving treatment for. A-fib Asthma BPH with urinary obstruction Elevated PSA Heart disease Hypertension Inguinal hernia Patient Survey You may receive a survey via text or e-mail asking about your office visit. Please share your experience with us by completing your survey. We appreciate your feedback and thank you for choosing us for your care. Education Materials Transrectal Ultrasound-Guided Prostate Biopsy, Care After The following information offers guidance on how to care for yourself after your procedure. Your health care provider may also give you more specific instructions. If you have problems or questions, contact your health care provider. What can I expect after the procedure? After the procedure, it is common to have: ? Pain and discomfort near your rectum, especially while sitting. ? Dovray-colored urine due to small amounts of blood in your urine. ? A burning feeling while urinating. ? Blood in your stool (feces) or bleeding from your rectum. ? Blood in your semen. Follow these instructions at home: Medicines ? Take yrpq-hby-aeqtlqd and prescription medicines only as told by your health care provider. ? If you were given a sedative during your procedure, it can affect you for several hours. Do not drive or operate machinery until your health care provider says that it is safe. ? If you were prescribed an antibiotic medicine, take it as told by your health care provider. Do not stop using the antibiotic even if you start to feel better. Activity ? Return to your normal activities as told by your health care provider. Ask your health care provider what activities are safe for you. ? Ask your health care provider when it is okay for you to resume sexual activity. ? You may have to avoid lifting. Ask your health care provider how much you can safely lift. General instructions ? Drink enough fluid to keep your urine pale yellow. ? Watch your urine, stool, and semen for new or increased bleeding. ? Keep all follow-up visits. This is important. Contact a health care provider if: ? You have any of the following: ? Blood clots in your urine or stool. ? Blood in your uri (more content not included)... Normal [facility] Patient Educationon 08-10-19 Patient Education Oncology Transrectal Ultrasound-Guided Prostate Biopsy, Care After The following information offers guidance on how to care for yourself after your procedure. Your health care provider may also give you more specific instructions. If you have problems or questions, contact your health care provider. What can I expect after the procedure? After the procedure, it is common to have: ? Pain and discomfort near your rectum, especially while sitting. ? Dovray-colored urine due to small amounts of blood in your urine. ? A burning feeling while urinating. ? Blood in your stool (feces) or bleeding from your rectum. ? Blood in your semen. Follow these instructions at home: Medicines ? Take jwup-zyd-kxxrlqv and prescription medicines only as told by your health care provider. ? If you were given a sedative during your procedure, it can affect you for several hours. Do not drive or operate machinery until your health care provider says that it is safe. ? If you were prescribed an antibiotic medicine, take it as told by your health care provider. Do not stop using the antibiotic even if you start to feel better. Activity ? Return to your normal activities as told by your health care provider. Ask your health care provider what activities are safe for you. ? Ask your health care provider when it is okay for you to resume sexual activity. ? You may have to avoid lifting. Ask your health care provider how much you can safely lift. General instructions ? Drink enough fluid to keep your urine pale yellow. ? Watch your urine, stool, and semen for new or increased bleeding. ? Keep all follow-up visits. This is important. Contact a health care provider if: ? You have any of the following: ? Blood clots in your urine or stool. ? Blood in your urine more than 2 weeks after the procedure. ? Blood in your semen more than 2 months after the procedure. ? New or increased bleeding in your urine, stool, or semen. ? Severe pain in your abdomen. ? Your urine smells bad or unusual. ? You have trouble urinating. ? Your lower abdomen feels firm. ? You have problems getting an erection. ? You have nausea or you vomit. Get help right away if: ? You have a fever or chills. This could be a sign of infection. ? You have bright red urine. ? You have severe pain that does not get better with medicine. ? You cannot urinate. Summary ? After this procedure, it is common to have pain and discomfort around your rectum, especially while sitting. ? You may have blood in your urine and stool after the procedure. ? It is common to have blood in your semen after this procedure. ? Get help right away if you have a fever or chills. This could be a sign of infection. This information is not intended to replace advice given to you by your health care provider. Make sure you discuss any questions you have with your health care provider. Document Revised: 01/13/2022 Document Reviewed: 01/13/2022 [employer] Patient Education ? 2022 [employer] Transrectal Ultrasound-Guided Prostate Biopsy A transrectal ultrasound-guided prostate biopsy is a procedure to remove samples of prostate tissue for testing. The prostate is a walnut-sized gland that is located below the bladder and in front of the rectum. During this procedure, a small device (probe) is lubricated and put inside the rectum. The probe sends out sound waves that make a picture of the prostate and surrounding tissues (transrectal ultrasound). The images are used to help guide the process of removing the samples. The samples are taken to a lab to be checked for prostate cancer. This procedure is usually done to evaluate the prostate gland of men who have raised (elevated) levels of prostate-specific antigen (PSA), which can be a sign of prostate cancer or prostate enlargement related to aging (benign prostatic hyperplasia, or BPH). Tell a health care provider about: ? Any allergies you have. ? All medicines you are taking, including vitamins, herbs, eye drops, creams, and nzlc-cst-imkefzl medicines. ? Any problems you or family members have had with anesthetic medicines. ? Any bleeding problems you have. ? Any surgeries you have had. ? Any medical conditions you have. ? Any prostate infections you have had. What are the risks? Generally, this is a safe procedure. However, problems may occur, including: ? Prostate infection. ? Bleeding from the rectum. ? Blood in the urine. ? Allergic reactions to medicines. ? Damage to surrounding structures such as blood vessels, organs, or muscles. ? Difficulty passing urine. ? Nerve damage. This is usually temporary. What happens before the procedure? Medicines Ask your health care provider about: ? Changing or stopping your regular medicines. This is especially important if you are taking diabetes medicines or blood thinners. ? Taking medicines such as aspirin (more content not included)... Normal [facility] Lab Reportson 07-30-2023 Lab Reports [id number] #1.00TIFF [facility] Lab Reportson 07-29-2023 Lab Reports [id number] #1.00TIFF [facility] Office Visiton 01-02-2023 Follow-up visit [id number] Sukhdeep Gamino 1960 M Date Provider Department Center 01/02/2023 Xander-AIMEE CLEMENT [facility] No family history on file Level of Service:61034 MT OFFICE/OUTPATIENT ESTABLISHED LOW MDM 20-29 MIN Reason for Visit and Comments: Atrial Fibrillation [80] Coronary Artery Disease [187] Hypertension [034322] Congestive Heart Failure [127] Normal [facility] XR LSPINE MIN 4 VIEWSon 05-04 XR LSPINE MIN 4 VIEWS EXAMINATION: XR LSPINE MIN 4 VIEWS HISTORY: Pain of left lower leg ; acute lumbar pain; no known injury COMPARISON: No relevant comparison available. FINDINGS: BONES: No significant spondylosis, scoliosis, fracture, or visible bony lesion. DISC SPACES: L2-L3 moderate marked narrowing. L5-S1 mild narrowing. PARASPINOUS: Negative. No paraspinous abnormality is seen. OTHER: Negative. IMPRESSION: 1. Marked degenerative disc disease L2-L3. Mild degenerative disc disease L5-S1. Consider MRI for further evaluation. Electronically authenticated by: ALL RICARDO Date: 2022-05-26 19:58 Normal [facility] Basic metabolic 2000 panelon 06-27-2021 Anion gap [Moles/Vol] 8 mmol/L Normal 6-18 [facility] Comment on above: Performed By: #### 2 4321-2 #### [facility] [address] [place] [address] Calcium [Mass/Vol] 8.7 mg/dL Low 8.9-10.3 [facility] Comment on above: Performed By: #### 2 4321-2 #### [facility] [address] [place] [address] Chloride [Moles/Vol] 106 mmol/L Normal 98-107 Moun [facility] Comment on above: Performed By: #### 2 4321-2 #### [facility] [address] [place] [address] CO2 [Moles/Vol] 26 mmol/L Normal 22-32 [facility] Comment on above: Performed By: #### 2 4321-2 #### [facility] [address] [place] [address] Creatinine [Mass/Vol] 1.05 mg/dL Normal 0.60-1.30 [facility] Comment on above: Performed By: #### 2 4321-2 #### [facility] [address] [place] [address] GFR/1.73 sq M.predicted among non-blacks MDRD (S/P/Bld) [Vol rate/Area] 76 mL/min/{1.73_m2} Normal [facility] Comment on above: Performed By: #### 2 4321-2 #### [facility] [address] [place] [address] 34481 Glucose [Mass/Vol] 126 mg/dL High 70-99 [facility] Comment on above: Performed By: #### 2 4321-2 #### [facility] [address] [place] [address] Potassium [Moles/Vol] 4.3 mmol/L Normal 3.6-5.1 [facility] Comment on above: Performed By: #### 2 4321-2 #### [facility] [address] [place] [address] Sodium [Moles/Vol] 140 mmol/L Normal 136-145 [facility] Comment on above: Performed By: #### 2 4321-2 #### [facility] [address] [place] [address] 49263 Urea nitrogen [Mass/Vol] 16 mg/dL Normal 8-20 [facility] Comment on above: Performed By: #### 2 4321-2 #### [facility] [address] [place] [address] 10772 Urea nitrogen/Creatinine [Mass ratio] 15.2 mg/mg Normal 12.0-20.0 [facility] Comment on above: Performed By: #### 2 4321-2 #### [facility] [address] [place] [address] 63477 Hemogram and platelets WO di fferential panel (Bld)on 06-27-2021 Basophils (Bld) [#/Vol] 0.00 10*3/uL Normal 0.00-0.20 [facility] Comment on above: Performed By: #### 2 4317-0 #### [facility] [address] [place] [address] 45285 Basophils/100 WBC (Bld) 0.1 % Normal 0.0-2.0 [facility] Comment on above: Performed By: #### 2 4317-0 #### [facility] [address] [place] [address] 64323 Eosinophils (Bld) [#/Vol] 0.00 10*3/uL Normal 0.00-0.70 [facility] Comment on above: Performed By: #### 2 4317-0 #### [facility] [address] [place] [address] 44966 Eosinophils/100 WBC (Bld) 0.0 % Normal 0.0-7.0 [facility] Comment on above: Performed By: #### 2 4317-0 #### [facility] [address] [place] [address] 47336 Erythrocyte distribution width (RBC) [Ratio] 13.2 % Normal 11.0-14.8 [facility] Comment on above: Performed By: #### 2 4317-0 #### [facility] [address] [place] [address] 50947 Hematocrit (Bld) [Volume fraction] 36.3 % Low 39.0-49.0 [facility] Comment on above: Performed By: #### 2 4317-0 #### [facility] [address] [place] [address] 28349 Hemoglobin (Bld) [Mass/Vol] 12.2 g/dL Low 13.5-17.5 [facility] Comment on above: Performed By: #### 2 4317-0 #### [facility] [address] [place] [address] 46056 Lymphocytes (Bld) [#/Vol] 0.70 10*3/uL Low 1.00-4.80 [facility] Comment on above: Performed By: #### 2 4317-0 #### [facility] [address] [place] [address] 75798 Lymphocytes/100 WBC (Bld) 7.3 % Low 22.0-44.0 [facility] Comment on above: Performed By: #### 2 4317-0 #### [facility] [address] [place] [address] 97464 MCH 30.0 pcg Normal 27.0-34.0 [facility] Comment on above: Performed By: #### 2 4317-0 #### [facility] [address] [place] [address] 53589 MCHC (RBC) [Mass/Vol] 33.5 g/dL Normal 32.0-36.0 [facility] Comment on above: Performed By: #### 2 4317-0 #### [facility] [address] [place] [address] 92521 MCV (RBC) [Entitic vol] 89.5 fL Normal 80.0-97.0 [facility] Comment on above: Performed By: #### 2 4317-0 #### [facility] [address] [place] [address] [place] [address] Monocytes (Bld) [#/Vol] 1.00 10*3/uL High 0.00-0.90 [facility] Comment on above: Performed By: #### 2 4317-0 #### [facility] [address] [place] [address] 25153 Monocytes/100 WBC (Bld) 11.6 % Normal 0.0-12.0 [facility] Comment on above: Performed By: #### 2 4317-0 #### [facility] [address] [place] [address] 15551 Neutrophils Absolute 7.30 K/mcL Normal 1.80-7.70 [facility]oun [facility] Comment on above: Performed By: #### 2 4317-0 #### [facility] [address] [place] [address] 96650 Neutrophils/100 WBC (Bld) 81.0 % High 40.0-70.0 [facility] Comment on above: Performed By: #### 2 4317-0 #### [facility] [address] [place] [address] 55644 Platelet mean volume (Bld) [Entitic vol] 7.0 fL Normal 6.2-12.1 [facility] Comment on above: Performed By: #### 2 4317-0 #### [facility] [address] [place] [address] 27031 Platelets (Bld) [#/Vol] 195 10*3/uL Normal 142-424 [facility] Comment on above: Performed By: #### 2 4317-0 #### [facility] [address] [place] [address] 27784 RBC (Bld) [#/Vol] 4.06 10*6/uL Low 4.30-5.70 [facility] Comment on above: Performed By: #### 2 4317-0 #### [facility] [address] [place] [address] 06503 WBC (Bld) [#/Vol] 9.0 10*3/uL Normal 4.6-10.2 [facility] Comment on above: Performed By: #### 2 4317-0 #### [facility] [address] [place] [address] 69315 PT Coag (PPP) [Time]on 06-27 INR Coag (PPP) [Relative time] 1.2 {INR} Normal <=5.0 [facility] Comment on above: Result Comment: The recommended therapeutic INR range for most cardiac indications is 2.0-3.0 For high intensity therapy (i.e. mechanical heart valves), the recommended range is 2.5-3.5 Performed By: #### 2 4321-2 #### [facility] [address] [place] [address] 70939 Prothrombin timeon PT Coag (PPP) [Time] 15.0 s High 11.9-14.7 [facility]oun [facility] Comment on above: Performed By: #### 2 4321-2 #### [facility] [address] [place] [address] 98465 Glucose Auto test strip (Bld ) [Mass/Vol]on 06-26-2021 Glucose [Mass/Vol] 82 mg/dL Normal 70-99 [facility] Comment on above: Performed By: #### 2 340-8 #### [facility] [address] [place] [address] 06204 Glucose [Mass/Vol] 146 mg/dL High 70-99 [facility] Comment on above: Performed By: #### 2 340-8 #### [facility] [address] [place] [address] 07913 PT Coag (PPP) [Time]on 06-26 INR Coag (PPP) [Relative time] 1.2 {INR} Normal <=5.0 [facility] Comment on above: Result Comment: The recommended therapeutic INR range for most cardiac indications is 2.0-3.0 For high intensity therapy (i.e. mechanical heart valves), the recommended range is 2.5-3.5 Performed By: #### 5 902-2 #### [facility] [address] [place] [address] 88069 INR Coag (PPP) [Relative time] 1.1 {INR} Normal <=5.0 [facility] Comment on above: Result Comment: The recommended therapeutic INR range for most cardiac indications is 2.0-3.0 For high intensity therapy (i.e. mechanical heart valves), the recommended range is 2.5-3.5 Performed By: #### 5 902-2 #### [facility] [address] [place] [address] 68811 Prothrombin timeon PT Coag (PPP) [Time] 14.7 s Normal 11.9-14.7 [facility] Comment on above: Performed By: #### 5 902-2 #### [facility] [address] [place] [address] 52244 PT Coag (PPP) [Time] 14.1 s Normal 11.9-14.7 [facility] Comment on above: Performed By: #### 5 902-2 #### [facility] [address] [place] [address] 88391 XR FLUORO UP TO 1 HOUR (STAT ISTICS)(NO REPORT)on 06-26-2021 XR FLUORO UP TO 1 HOUR (STATISTICS)(NO REPORT) This order has been auto-finalized and does not contain a result. Normal [facility] XR Fluoro Up To 1 Hour (Stat istics)(No Report)on 06-26-2021 This order has been auto-finalized and does not contain a result. RIS PACS/VR XR PELVIS 1-2 VIEWSon 2020 XR PELVIS 1-2 VIEWS EXAMINATION TYPE: XR PELVIS 1-2 VIEWS DATE OF EXAM: 06/26/2021 10:49 AM HISTORY: AAA, post-op. Hip arthroplasty. COMPARISON PLAIN FILM: NONE FINDINGS: Osseous structures and arthroplasty are intact. No gross malalignment. Intra-articular and periarticular postoperative gas. A drain appears to be in place. A Padgett catheter is partially visible. IMPRESSION: Status post recent right hip arthroplasty without acute complication. -------- FINAL REPORT -------- Dictated By: Mayo Romo Dictated Date: 06/26/2021 13:48 Assigned Physician: Mayo Romo Reviewed and Electronically Signed By: Mayo Romo Signed Date: 06/26/2021 13:50 Workstation ID: [id number] Transcribed By: Self Edit Transcribed Date: 06/26/2021 13:48 Normal [facility] Covid-19 PCR ([facility])on 06-04 SARS-CoV-2 (COVID-19) RNA NANCY+probe Ql (Unsp spec) Not detected Normal NOT DETECTED [facility] Comment on above: Result Comment: This test is not yet approved or cleared by the [place] FDA. When there are no FDA-approved or cleared tests available, and other criteria are met, FDA can make tests available under an emergency access mechanism called an Emergency Use Authorization (EUA). The EUA for this test is supported by the [place] of Health and Human Service's (HHS's) declaration that circumstances exist to justify the emergency use of in vitro diagnostics for the detection and/or diagnosis of the virus that causes COVID-19. This EUA will remain in effect (meaning this test can be used) for the duration of the COVID-19 declaration justifying emergency of IVDs, unless it is terminated or revoked by FDA (after which the test may no longer be used). When diagnostic testing is negative, the possibility of a false negative should be considered in the context of a patient's recent exposures and the presence of clinical signs and symptoms consistent with SARS-CoV-2. Performed By: #### [facility] #### [facility] [address] [place] [address] Dr. Grant Carrillo Basic metabolic 2000 panelon 06-03-2021 Anion gap [Moles/Vol] 9 mmol/L Normal 6-18 [facility] Comment on above: Performed By: #### 2 4321-2 #### [facility] [address] [facility] [place] [address] Calcium [Mass/Vol] 9.4 mg/dL Normal 8.9-10.3 [facility] Comment on above: Performed By: #### 2 4321-2 #### [facility] [address] [place] [address] Chloride [Moles/Vol] 105 mmol/L Normal 98-107 Moun [facility] Comment on above: Performed By: #### 2 4321-2 #### [facility] [address] [place] [address] CO2 [Moles/Vol] 25 mmol/L Normal 22-32 [facility] Comment on above: Performed By: #### 2 4321-2 #### [facility] [address] [place] [address] Creatinine [Mass/Vol] 1.05 mg/dL Normal 0.60-1.30 [facility] Comment on above: Performed By: #### 2 4321-2 #### [facility] [address] [place] [address] GFR/1.73 sq M.predicted among non-blacks MDRD (S/P/Bld) [Vol rate/Area] 76 mL/min/{1.73_m2} Normal [facility] Comment on above: Performed By: #### 2 4321-2 #### [facility] [address] [facility] [place] [address] Glucose [Mass/Vol] 96 mg/dL Normal 70-99 [facility] Comment on above: Performed By: #### 2 4321-2 #### [facility] [address] [place] [address] Potassium [Moles/Vol] 4.4 mmol/L Normal 3.6-5.1 [facility] Comment on above: Performed By: #### 2 4321-2 #### [facility] [address] [place] [address] 19746 Sodium [Moles/Vol] 139 mmol/L Normal 136-145 [facility] Comment on above: Performed By: #### 2 4321-2 #### [facility] [address] [place] [address] 88471 Urea nitrogen [Mass/Vol] 23 mg/dL High 8-20 [facility] Comment on above: Performed By: #### 2 4321-2 #### [facility] [address] [place] [address] 13328 Urea nitrogen/Creatinine [Mass ratio] 21.9 mg/mg High 12.0-20.0 [facility] Comment on above: Performed By: #### 2 4321-2 #### [facility] [address] [place] [address] 97220 Hemogram and platelets WO di fferential panel (Bld)on 06-03-2021 Basophils (Bld) [#/Vol] 0.10 10*3/uL Normal 0.00-0.20 [facility] Comment on above: Performed By: #### 2 4317-0 #### [facility] [address] [place] [address] 11006 Basophils/100 WBC (Bld) 0.5 % Normal 0.0-2.0 [facility] Comment on above: Performed By: #### 2 4317-0 #### [facility] [address] [place] [address] 95521 Eosinophils (Bld) [#/Vol] 0.10 10*3/uL Normal 0.00-0.70 [facility] Comment on above: Performed By: #### 2 4317-0 #### [facility] [address] [place] [address] 84609 Eosinophils/100 WBC (Bld) 0.6 % Normal 0.0-7.0 [facility] Comment on above: Performed By: #### 2 7-0 #### [facility] [address] [place] [address] 83986 Erythrocyte distribution width (RBC) [Ratio] 13.7 % Normal 11.0-14.8 [facility] Comment on above: Performed By: #### 2 4317-0 #### [facility] [address] [place] [address] 61383 Hematocrit (Bld) [Volume fraction] 45.9 % Normal 39.0-49.0 [facility] Comment on above: Performed By: #### 2 4317-0 #### [facility] [address] [place] [address] 26493 Hemoglobin (Bld) [Mass/Vol] 15.1 g/dL Normal 13.5-17.5 [facility] Comment on above: Performed By: #### 2 4317-0 #### [facility] [address] [place] [address] 88834 Lymphocytes (Bld) [#/Vol] 1.20 10*3/uL Normal 1.00-4.80 [facility] Comment on above: Performed By: #### 2 4317-0 #### [facility] [address] [place] [address] 40291 Lymphocytes/100 WBC (Bld) 11.3 % Low 22.0-44.0 [facility] Comment on above: Performed By: #### 2 4317-0 #### [facility] [address] [place] [address] MCH 29.8 pcg Normal 27.0-34.0 [facility] Comment on above: Performed By: #### 2 4317-0 #### [facility] [address] [place] [address] 96303 MCHC (RBC) [Mass/Vol] 33.0 g/dL Normal 32.0-36.0 [facility] Comment on above: Performed By: #### 2 7-0 #### [facility] [address] [place] [address] 26985 MCV (RBC) [Entitic vol] 90.4 fL Normal 80.0-97.0 [facility] Comment on above: Performed By: #### 2 4317-0 #### [facility] [address] [place] [address] 43080 Monocytes (Bld) [#/Vol] 1.10 10*3/uL High 0.00-0.90 [facility] Comment on above: Performed By: #### 2 4317-0 #### [facility] [address] [place] [address] 37634 Monocytes/100 WBC (Bld) 9.8 % Normal 0.0-12.0 [facility] Comment on above: Performed By: #### 2 4317-0 #### [facility] [address] [place] [address] 81288 Neutrophils Absolute 8.50 K/mcL High 1.80-7.70 Moun [facility] Comment on above: Performed By: #### 2 4317-0 #### [facility] [address] [place] [address] 79648 Neutrophils/100 WBC (Bld) 77.8 % High 40.0-70.0 [facility] Comment on above: Performed By: #### 2 4317-0 #### [facility] [address] [facility] [place] [place] [address] Platelet mean volume (Bld) [Entitic vol] 7.1 fL Normal 6.2-12.1 [facility] Comment on above: Performed By: #### 2 4317-0 #### [facility] [address] [place] [address] 27358 Platelets (Bld) [#/Vol] 379 10*3/uL Normal 142-424 [facility] Comment on above: Performed By: #### 2 4317-0 #### [facility] [address] [place] [address] 47560 RBC (Bld) [#/Vol] 5.08 10*6/uL Normal 4.30-5.70 [facility] Comment on above: Performed By: #### 2 4317-0 #### [facility] [address] [place] [address] 16707 WBC (Bld) [#/Vol] 10.9 10*3/uL High 4.6-10.2 [facility] Comment on above: Performed By: #### 2 4317-0 #### [facility] [address] [place] [address] Cardiovascular Lab Reporton 01-29-2021 Cardiovascular Lab Report [facility] Patient Name: Sukhdeep Gamino [facility] MR #: [id number] Physician: Adriana Huff, Department of M.D. Medicine Service Date: 01/28/2021 Division of Birthdate: 1960 Cardiology Room #: [facility] [place] [address] Cardiovascular Laboratory Report FINAL IMPRESSIONS: 1. Nbda-hz-gkvdzoth single-vessel coronary artery disease. 2. Mildly reduced global left ventricular systolic function by noninvasive imaging. 3. Normal right-sided heart pressures and pulmonary capillary wedge pressure. 4. Normal cardiac output/cardiac index. 5. Mild systemic hypertension. RECOMMENDATIONS: 1. Consider alternate etiologies of the patient's dyspnea mainly pulmonary. 2. Aggressive cardiovascular risk factor modification. 3. Optimization of medical management; aspirin, high-intensity statin therapy, a beta jazmyn, and an angiotensin-converti ng enzyme inhibitor are indicated. 4. Follow up with Dr. Huff and/or a nurse practitioner in the [facility] outpatient setting in the next 2 to 3 months. 5. Follow up with Dr. Artis as scheduled; consider referral to a fire alarm repairer as clinically appropriate. PROCEDURES: Ultrasound-guided access to the right internal jugular vein, right heart catheterization, bilateral selective coronary angiography via the left radial approach. METHODS: After risks, benefits, and alternatives were explained, written informed consent was obtained. The patient was prepped and draped in the usual sterile fashion over the right neck and left wrist. Using 1% lidocaine solution, local infiltration and anesthesia was achieved over the right neck. Under ultrasound guidance using a micropuncture kit and a modified Seldinger technique access to the right internal jugular vein was obtained. A 6-Malay 11 cm sheath was inserted without difficulty. A Winston catheter was used for right heart catheterization measuring pressures in the right atrium, right ventricle, pulmonary artery, and pulmonary capillary wedge positions. Oxygen saturations were obtained and a cardiac output/cardiac index was calculated using the Mitch principle. The Winston catheter was removed. The jugular sheath was removed with application of manual pressure to achieve optimal hemostasis. Local infiltration anesthesia was achieved over the left wrist. A micropuncture kit was used to access the left radial artery. A 6-Malay glide sheath was inserted without difficulty. Bilateral selective coronary angiography was performed using JR4 and JL4 catheters. PROCEDURE: After reviewing the images, it was elected to conclude the procedure. All catheters were removed. The radial sheath was removed with application of a TR band per protocol to achieve optimal hemostasis. Overall, the patient tolerated the procedure well. There were no overt complications. He was to be transferred to the holding area in stable condition. FINDINGS: Hemodynamics. AO 141/92. RA 8. RV 28/7. PA 28/14 (19). PCWP 14. TPG 5. Cardiac output 5.19/cardiac index 2.56. AO sat 95%/PA sat 70%. LEFT VENTRICULOGRAPHY: This was not performed. Ejection fraction is 45 to 50% by echocardiography. CORONARY ARTERIES: Left main coronary artery. This arises from the left coronary cusp. It bifurcates into the left anterior descending and left circumflex coronary artery that shows no significant stenoses. Left anterior descending coronary artery. This shows sequential 30 to 40% stenoses in the midportion of the vessel off the bifurcation with a large second diagonal branch. The remainder of the vessel showed mild luminal irregularities. There appears to be a short segment of myocardial bridging. It is a large wrap-around vessel. Left circumflex coronary artery. This shows mild luminal irregularities proximally. It is a codominant vessel giving rise to posterolateral branches. Right coronary artery. This is a codominant vessel giving rise to the posterior descending artery. It shows mild luminal irregularities. INDICATIONS: Exertional shortness of breath, anginal equivalent, reduced ejection fraction by echocardiogram, and history of coronary artery disease. Electronically Signed by: Adriana Huff M.D. 01/31/2021 03:45 P Adriana Huff M.D. Date Dict: 01/28/2021/01:00 P/Adriana Huff M.D. Date Trans: 01/29/2021 02:16 A/wai [id number] cc: Alek Artis M.D. [address], [facility] [id number] [facility] Vital Signs Date Time Vital Sign Value Performing Clinician Edgardo pearson 08-31-2023 09:12-0500 Diastolic blood pressure 88 mm[Hg] Chadd BOWLING [facility] 08-31-2023 09:12-0500 Mean blood pressure 102 mm[Hg] Chadd BOWLING [facility] 08-31-2023 09:12-0500 Systolic blood pressure 131 mm[Hg] Chadd BOWLING [facility] 08-31-2023 09:06-0500 Blood Pressure Location Chadd BOWLING [facility] 08-31-2023 09:06-0500 Diastolic blood pressure 90 mm[Hg] Chadd BOWLING [facility] 08-31-2023 09:06-0500 Heart rate 68 /min Chadd BOWLING [facility] 08-31-2023 09:06-0500 Respiratory rate 16 /min Chadd BOWLING [facility] 08-31-2023 09:06-0500 Systolic blood pressure 145 mm[Hg] Chadd BOWLING [facility] 08-25-2023 15:20-0500 Diastolic blood pressure 84 mm[Hg] Chadd BOWLING [facility] 08-25-2023 15:20-0500 Heart rate 82 /min Chadd BOWLING [facility] 08-25-2023 15:20-0500 Systolic blood pressure 128 mm[Hg] Chadd BOWLING [facility] 08-10-2023 11:32-0500 Diastolic blood pressure 105 mm[Hg] Chadd BOWLING [facility] 08-10-2023 11:32-0500 Mean blood pressure 117 mm[Hg] Chadd BOWLING [facility] 08-10-2023 11:32-0500 Systolic blood pressure 142 mm[Hg] Chadd BOWLING [facility] 08-10-2023 11:26-0500 Blood Pressure Location Chadd BOWLING [facility] 08-10-2023 11:26-0500 Diastolic blood pressure 106 mm[Hg] Chadd BOWLING [facility] 08-10-2023 11:26-0500 Heart rate 80 /min Chadd BOWLING [facility] 08-10-2023 11:26-0500 Respiratory rate 16 /min Chadd BOWLING [facility] 08-10-2023 11:26-0500 Systolic blood pressure 144 mm[Hg] Chadd BOWLING [facility] Encounters Encounter Date Encounter Type Care Provider Facility Start: 08-31-2023 End: 08-31-2023 ambulatory Facility:[facility] Start: 08-31-2023 End: 09-01-2023 ambulatory Chadd BOWLING Facility:[facility] Start: 08-31-2023 End: 08-31-2023 Patient encounter procedure Chadd BOWLING [facility] Start: 08-25-2023 End: 08-26-2023 ambulatory Chadd BOWLING [facility] Work Phone: Start: 08-25-2023 End: 08-25-2023 Departed Referred MD Chadd Bowling Work Phone: [facility] [place] Work Phone: Start: 08-25-2023 End: 08-25-2023 Patient encounter procedure Chadd BOWLING [facility] Start: 08-10-2023 End: 08-11-2023 ambulatory Chaddbridgette BOWLING Facility:[facility] [place] Start: 08-10-2023 End: 08-10-2023 Patient encounter procedure Chadd BOWLING [facility] Start: 04-15-2023 ambulatory Chadd BOWLING Facility :[facility] [place] Start: 01-02-2023 End: 01-02-2023 ambulatory AIMEE [facility] Start: 05-26-2022 End: 05-27-[address] ALEK ARTIS Facility:[facility] Start: 07-03-2021 Encounter for preprocedural laboratory examination DR ALEK ARTIS [facility] Start: 07-01-2021 End: 07-30-[address] ALEK ARTIS Facility:[facility] Start: 06-26-2021 End: 06-27-2021 ambulatory ALEK ARTIS [facility] Start: 06-26-2021 End: 06-27-2021 ambulatory CARYL ACEVEDO [facility] Start: 06-26-2021 End: 06-26-2021 Evaluation and management of inpatient Cesar[facility] [address] [place] [address] Start: 06-26-2021 End: 06-26-2021 Subsequent hospital visit by physician Brice [address] [place] [address] Comment on above: Pain Start: 06-24-2021 End: 06-24-[address] ALEK ARTIS Facility:[facility] Start: 06-24-2021 End: 06-24-2021 Encounter for preprocedural laboratory examination DR ALEK ARTIS Facility:[facility] Start: 06-03-2021 End: 06-03-2021 Documentation procedure Yohan Johnson MD Work Phone: [facility] Comment on above: Pre-op Exam Start: 01-28-2021 End: 01-29-2021 ambulatory ADRIANA HUFF Facility:[facility] Procedures Date Procedure Procedure Detail Performing Clinician Start: 08-25-2023 Transrectal biopsy o f prostate using ultrasound guidance Chadd BOWLING Start: 06-26-2021 XR FLUORO UP TO 1 HO UR (STATISTICS)(NO REPORT) Caryl Acevedo MD Work Phone: Cardiac catheter (ph ysical object) Chadd BOWLING Insertion of hip prosthesis Chadd BOWLING Structure of sinoatr ial node (body structure) Chadd BOWLING Plan of Treatment Date Care Activity Detail Author Start: 06-27-2022 Hypertension/CHF/CAD Annual BMP Blood Test Hypertension/CHF/CAD Annual BMP Blood Test [facility] Start: 06-03-2022 Hypertension/CHF/CAD Annual BMP Blood Test Hypertension/CHF/CAD Annual BMP Blood Test [facility] Start: 06-26-2021 End: 06-26-2021 Admission to same day surgery center 06/26/2021 Surgery Operating Room Caryl Acevedo MD [address] [facility] [address] [place] [address] ARTHROPLASTY HIP TOTAL RIGHT ANTERIOR [02519 (CPT )] [facility] Comment on above: ARTHROPLASTY HIP TOT AL RIGHT ANTERIOR [84535 (CPT )] Start: 06-26-2021 End: 06-26-2021 Arthrp acetblr/prox fem prostc agrft/algrft ARTHROPLASTY HIP TOTAL ANTERIOR Unilateral primary osteoarthritis, right hip 06/26/2021 6:30 AM EST [facility] Start: 06-26-2021 Subsequent hospital visit by physician 06/26/2021 Hospital Encounter Operating Room [facility] Start: 05-03-2021 COVID-19 Vaccine (3 - Booster for Pfizer series) COVID-19 Vaccine (3 - Booster for Pfizer series) [facility] Start: 04-27-2021 Adolescent depressio n screening assessment Depression Screening [facility] Start: 04-27-2021 Depression Screening Depression Scre ening [facility] Start: 04-27-2021 Hepatitis C screening Hepatitis C Sc reening [facility] Start: 04-27-2021 HIV screening HIV Screening [facility] Start: 04-27-2021 Lipid panel Cholesterol Sc reening (Lipid Panel) [facility] Start: 04-27-2021 Screening for malign ant neoplasm of colon Colorectal Cancer Screening: Colonoscopy [facility] Start: 04-27-2021 Social Influencers o f Health Screening Social Influencers of Health Screening [facility] Start: 04-03-2021 Influenza vaccination Influenza Vacc ine (#1) [facility] Start: 2008 Zoster Vaccines (1 of 2) Zoster Vacc nolan (1 of 2) [facility] Start: 1977 DTaP,Tdap,and Td Vaccines (1 - Tdap) DTaP,Tdap,and Td Vaccines (1 - Tdap) [facility] Start: 1970 COVID-19 Vaccine (1) COVID-19 Vaccin e (1) [facility] Start: 1964 Pneumococcal Vaccine : Pediatrics (0 to 5 Years) and At-Risk Patients (6 to 64 Years) (1 of 2 - PPSV23) Pneumococcal Vaccine: Pediatrics (0 to 5 Years) and At-Risk Patients (6 to 64 Years) (1 of 2 - PPSV23) [facility] Immunizations Immunization Date Immunization Notes Care Provider Fa cility 11-01-2020 SARS-CoV-2 (COVID-19 ) mRNA BNT-162b2 juanx Chadd BOWLING [facility] 10-11-2020 SARS-CoV-2 (COVID-19 ) mRNA BNT-162b2 cande BOWLING [facility] NEGATED: Highlighted row has not occurred!08-25-2023 influenza virus vaccine, unspecified formulation Chadd BOWLING [facility] [place] Payers Date Payer Category Payer Self-pay [id number] 2021 Unknown [id number] 2018 Unknown [employer] [id number] 2018-Present [address] [place] [address] [id number] 1959 Self-pay [id number] 1959 Unknown [id number] 1958 Unknown [id number] 1958 Unknown [id number] 1958 Unknown [id number] 1958 Unknown [id number] 1958 Unknown [id number] 1958 Unknown [id number] 1958 Unknown [id number] 1958 Unknown [id number] 1958 Unknown [id number] 1958 Unknown [id number] Unknown [id number] Social History Date Type Detail Facility Tobacco smoking stat [facility] Unknown if ever smoked [facility] Work Phone: Start: 1960 Sex Assigned At Not on file [facility] Start: 06-25-2021 End: 08-31-2023 Tobacco smoking status WAIS Never smoker [facility] Start: 06-25-2021 Alcohol intake Lifetime non-d ismael (finding) [facility] Start: 06-25-2021 History SDOH Alcohol Frequency 1 [facility] Exposure to SARS-CoV -2 (event) Not sure [facility] Tobacco smoking status Never [facility] Sex Assigned At Male [facility] Start: 1960 Sex Assigned At Male F [facility] Medical Equipment Procedure Code Equipment Code Equipment Origin al Text Equipment Identifier Dates Hip G7 Pps Ltd A cet Shell 56f - Sna - [id number] [id number], [id number] FDA Start: 06-26-2021 Liner G7 Neutral Ve 36mm F - Sna - [id number], [id number] FDA Start: 06-26-2021 Complete Ho Collarless Sz 7.5 - Sna - [id number], [id number] FDA Start: 06-26-2021 Hip Hd Blx D Fem 36mm +7mm - Sna - [id number], [id number] FDA Start: 06-26-2021 Functional Status Date Assessment Result Facility 08-31-2023 Functional Status N/A [facility] 08-25-2023 Functional Status N/A [facility] 08-10-2023 Functional Status N/A [facility] Clinical Notes 06-03-2021 to 08-31-2023 Klever Johnson MD - 06/03/2021 1:27 PM EDT Note Date & Type Note Facility 08-31-2023 Hospital Discharge instructions Patient Education 08/31/2023 10:07:58 Prostate Cancer Prostate Cancer The prostate is a small gland that produces fluid that makes up semen (seminal fluid). It is located below the bladder in men, in front of the rectum. Prostate cancer is the abnormal growth of cells in the prostate gland. What are the causes? The exact cause of this condition is not known. What increases the risk? You are more likely to develop this condition if: You are 65 years of age or older. You have a family history of prostate cancer. You have a family history of breast and ovarian cancer. You have genes that are passed from parent to child (inherited), such as BRCA1 and BRCA2. You have Way syndrome. men and men of descent are diagnosed with prostate cancer at higher rates than other men. The reasons for this are not well understood and are likely due to a combination of genetic and environmental factors. What are the signs or symptoms? Symptoms of this condition include: Problems with urination. This may include: ?A weak or interrupted flow of urine. ?Trouble starting or stopping urination. ?Trouble emptying the bladder all the way. ?The need to urinate more often, especially at night. Blood in urine or semen. Persistent pain or discomfort in the lower back, lower abdomen, or hips. Trouble getting an erection. Weakness or numbness in the legs or feet. How is this diagnosed? This condition can be diagnosed with: A digital rectal exam. For this exam, a health care provider inserts a gloved finger into the rectum to feel the prostate gland. A blood test called a prostate-specific antigen (PSA) test. A procedure in which a sample of tissue is taken from the prostate and checked under a microscope (prostate biopsy). An imaging test called transrectal ultrasonography. Once the condition is diagnosed, tests will be done to determine how far the cancer has spread. This is called staging the cancer. Staging may involve imaging tests, such as a bone scan, CT scan, PET scan, or MRI. Stages of prostate cancer The stages of prostate cancer are as follows: Stage 1 (I). At this stage, the cancer is found in the prostate only. The cancer is not visible on imaging tests, and it is usually found by accident, such as during prostate surgery. Stage 2 (II). At this stage, the cancer is more advanced than it is in stage 1, but the cancer has not spread outside the prostate. Stage 3 (III). At this stage, the cancer has spread beyond the outer layer of the prostate to nearby tissues. The cancer may be found in the seminal vesicles, which are near the bladder and the prostate. Stage 4 (IV). At this stage, the cancer has spread to other parts of the body, such as the lymph nodes, bones, bladder, rectum, liver, or lungs. Prostate cancer grading Prostate cancer is also graded according to how the cancer cells look under a microscope. This is called the Lima score and the total score can range from 6 10, indicating how likely it is that the cancer will spread (metastasize) to other parts of the body. The higher the score, the greater the likelihood that the cancer will spread. Lima 6 or lower: This indicates that the cancer cells look similar to normal prostate cells (well differentiated). Lima 7: This indicates that the cancer cells look somewhat similar to normal prostate cells (moderately differentiated). Christine 8, 9, or 10: This indicates that the cancer cells look very different than normal prostate cells (poorly differentiated). How is this treated? Treatment for this condition depends on several factors, including the stage of the cancer, your age, personal preferences, and your overall health. Talk with your health care provider about treatment options that are recommended for you. Common treatments include: Observation for early stage prostate cancer (active surveillance). This involves having exams, blood tests, and in some cases, more biopsies. For some men, this is the only treatment needed. Surgery. Types of surgeries include: ?Open surgery (radical prostatectomy). In this surgery, a larger incision is made to remove the prostate. ?A laparoscopic radical prostatectomy. This is a surgery to remove the prostate and lymph nodes through several small incisions. It is often referred to as a minimally invasive surgery. ?A robotic radical prostatectomy. This is laparoscopic surgery to remove the prostate and lymph nodes with the help of robotic arms that are controlled by the surgeon. ?Cryoablation. This is surgery to freeze and destroy cancer cells. Radiation treatment. Types of radiation treatment include: ?External beam radiation. This type aims beams of radiation from outside the body at the prostate to destroy cancerous cells. ?Brachytherapy. This type uses radioactive needles, seeds, wires, or tubes that are implanted into the prostate gland. Like external beam radiation, brachytherapy destroys cancerous cells. An advantage is that this type of radiation limits the damage to surrounding tissue and has fewer side effects. Chemotherapy. This treatment kills cancer cells or stops them from multiplying. It kills both cancer cells and normal cells. Targeted therapy. This treatment uses medicines to kill cancer cells without damaging normal cells. Hormone treatment. This treatment involves taking medicines that act on testosterone, one of the male hormones, by: ?Stopping your body from producing testosterone. ?Blocking testosterone from reaching cancer cells. Follow these instructions at home: Lifestyle Do not use any products that contain nicotine or tobacco. These products include cigarettes, chewing tobacco, and vaping devices, such as e-cigarettes. If you need help quitting, ask your health care provider. Eat a healthy diet. To do this: ?Eat foods that are high in fiber. These include beans, whole grains, and fresh fruits and vegetables. ?Limit foods that are high in fat and sugar. These include fried or sweet foods. Treatment for prostate cancer may affect sexual function. If you have a partner, continue to have intimate moments. This may include touching, holding, hugging, and caressing your partner. Get plenty of sleep. Consider joining a support group for men who have prostate cancer. Meeting with a support group may help you learn to manage the stress of having cancer. General instructions Take wbat-owe-hpjrese and prescription medicines only as told by your health care provider. If you have to go to the hospital, notify your cancer specialist (oncologist). Keep all follow-up visits. This is important. Where to find more information [place] [employer]: www.cancer.org [place] [employer] On[employer]: www.cancer.net National Cancer [employer]: www.cancer.gov Contact a health care provider if: You have new or increasing trouble urinating. You have new or increasing blood in your urine. You have new or increasing pain in your hips, back, or chest. Get help right away if: You have weakness or numbness in your legs. You cannot control urination or your bowel movements (incontinence). You have chills or a fever. Summary The prostate is a small gland that is involved in the production of semen. It is located below a man's bladder, in front of the rectum. Prostate cancer is the abnormal growth of cells in the prostate gland. Treatment for this condition depends on the stage of the cancer, your age, personal preferences, and your overall health. Talk with your health care provider about treatment options that are recommended for you. Consider joining a support group for men who have prostate cancer. Meeting with a support group may help you learn to manage the stress of having cancer. This information is not intended to replace advice given to you by your health care provider. Make sure you discuss any questions you have with your health care provider. Document Revised: 10/16/2021 Document Reviewed: 10/16/2021 Elsevier Patient Education 2022 InsideAxis™. Follow Up Care 08/10/2023 12:37:56 With:MICKY GARRISON, Chadd Hernández, URL Address: [facility] [address], [place] [address]- [phone] When: Unknown Comments:f/u pending results of PSMA and bone scans [facility] 08-26-2023 Evaluation + Plan note Future Scheduled TestsPathology Tissue Exam 08/26/23Pathology Tissue Exam 08/26/23Pathology Tissue Exam 08/26/23Pathology Tissue Exam 08/26/23Pathology Tissue Exam 08/26/23Pathology Tissue Exam 08/26/23Pathology Tissue Exam 08/26/23Pathology Tissue Exam 08/26/23Pathology Tissue Exam 08/26/23Pathology Tissue Exam 08/26/23Pathology Tissue Exam 08/26/23Pathology Tissue Exam 08/26/23 [facility] 08-25-2023 Hospital Discharge instructions Patient Education 08/25/2023 15:32:34 Transrectal Ultrasound-Guided Prostate Biopsy, Care After Transrectal Ultrasound-Guided Prostate Biopsy, Care After The following information offers guidance on how to care for yourself after your procedure. Your health care provider may also give you more specific instructions. If you have problems or questions, contact your health care provider. What can I expect after the procedure? After the procedure, it is common to have: Pain and discomfort near your rectum, especially while sitting. Dovray-colored urine due to small amounts of blood in your urine. A burning feeling while urinating. Blood in your stool (feces) or bleeding from your rectum. Blood in your semen. Follow these instructions at home: Medicines Take ofzu-lgf-qretncy and prescription medicines only as told by your health care provider. If you were given a sedative during your procedure, it can affect you for several hours. Do not drive or operate machinery until your health care provider says that it is safe. If you were prescribed an antibiotic medicine, take it as told by your health care provider. Do not stop using the antibiotic even if you start to feel better. Activity Return to your normal activities as told by your health care provider. Ask your health care provider what activities are safe for you. Ask your health care provider when it is okay for you to resume sexual activity. You may have to avoid lifting. Ask your health care provider how much you can safely lift. General instructions Drink enough fluid to keep your urine pale yellow. Watch your urine, stool, and semen for new or increased bleeding. Keep all follow-up visits. This is important. Contact a health care provider if: You have any of the following: ?Blood clots in your urine or stool. ?Blood in your urine more than 2 weeks after the procedure. ?Blood in your semen more than 2 months after the procedure. ?New or increased bleeding in your urine, stool, or semen. ?Severe pain in your abdomen. Your urine smells bad or unusual. You have trouble urinating. Your lower abdomen feels firm. You have problems getting an erection. You have nausea or you vomit. Get help right away if: You have a fever or chills. This could be a sign of infection. You have bright red urine. You have severe pain that does not get better with medicine. You cannot urinate. Summary After this procedure, it is common to have pain and discomfort around your rectum, especially while sitting. You may have blood in your urine and stool after the procedure. It is common to have blood in your semen after this procedure. Get help right away if you have a fever or chills. This could be a sign of infection. This information is not intended to replace advice given to you by your health care provider. Make sure you discuss any questions you have with your health care provider. Document Revised: 01/13/2022 Document Reviewed: 01/13/2022 [employer] Patient Education 2022 Inside[employer]™. Follow Up Care 08/17/2023 15:34:17 With:MICKY GARRISON, Chadd Hernández, URL Address: [facility] [address] , [place] [address]- [phone] When: Unknown Comments:review path on 09/11/23 [facility] 08-10-2023 Note Chief Complaint Referral *Elevated PSA HPI Staff Evaluation requested by Dr Alek Artis due to elevated PSA. Pt is a new pt. Never before seen in our office. Denies family Hx of Prostate Cancer. Denies pain/burning and visible blood in urine. Denies complaints with urinary stream. Denies frequency during the day. Gets ip maybe 1x/night to void. Denies any concerns at this time. IPSS 6 PSA 04/10/23- 6.9 & 13.5 07/29/23- 7.9 & 12.9% History of Present Illness Tests reviewed: reviewed UA, referral records, PSAs I have reviewed the previous health record information and history for this patient from external providers. I have reviewed and verified the staff HPI to be accurate for this encounter. Review of Systems PHQ Score Initial Depression Screen Score: 0 SCORE ROS - Provider Constitutional: denies weight loss, denies hot flashes. Eyes: denies eye problems. Gastrointestinal: denies nausea, denies vomiting. Cardiovascular: denies chest pain or angina. Integumentary: no dryness Musculoskeletal: denies musculoskeletal symptoms. ENMT: denies otolaryngeal symptoms. Respiratory: no shortness of breath. Heme/Lymph: denies easy bleeding tendency, denies easy bruising tendency. Psychiatric: no confusion, no anxiety. Genitourinary: See HPI. Physical Exam Vitals & Measurements HR: 80(Peripheral) RR: 16 BP: 142/105 HT: 70 in HT: 178 cm WT: 88.5 kg WT: 194.7 lb BMI: 27.93 General Appearance: alert, no distress, well nourished, well developed male. Head: normocephalic . Eyes: normal orbit and globe. ENMT: normal examination of external ears. Chest: Lungs CTA, respirations non labored. Cardiovascular: regular rate and rhythm. Abdomen: soft, non distended, no tenderness, no mass or organomegaly, no hernia. Genitourinary: abnormal scrotum - moderate inguinal L hernia, normal testes, normal urethra, normal epididymis, normal vas deferens/spermatic cord. Flank Pain: none. Bladder: nonpalpable. Penis: normal shaft, normal glans. Prostate: normal prostate, estimated weight 45 gms, no hard nodule observed. Lymph Nodes: unremarkable palpation of the cervical area. Skin: warm, dry, no bruising. Psychiatric: cooperative, affect appropriate for age, normal judgement, euthymic mood. Assessment/Plan Sukhdeep is a 62 yo male new pt referred by Dr. Alek Artis for elevated PSA. 1. Elevated PSA (R97.20: Elevated prostate specific antigen [PSA]) PSA 04/10/23 - 6.9 & 13.5% 07/29/23 - 7.9 & 12.9% No known fam hx of prostate ca. Never has had a ARYAN. ARYAN today: 45gms, benign Discussed PSA levels. The importance of the rate of PSA rise has also been discussed. He has an elevated PSA, which could indicate prostate cancer, prostate infection, prostate inflammation without infection, prostate manipulation, or benign prostate enlargement (BPH). The options for management have been discussed, including prostate biopsy versus close monitoring of the PSA over time. Due to pt's PSA increasing, will proceed with biopsy. -Will schedule TRUS of Prostate with Biopsy. The procedural risks, benefits, details, and treatment alternatives have been discussed with the patient. These include minimal to severe bleeding, infection, blood in the semen, inability to urinate, and severe infection requiring hospitalization and IV antibiotics, among others. Full informed consent has been obtained. Will order Local anesthesia. 2. BPH with urinary obstruction (N40.1: Benign prostatic hyperplasia with lower urinary tract symptoms) IPSS 6. Not currently taking any BPH meds. Occasional weak stream. Denies hesitancy and start/stop stream. Denies urgency or incontinence. States urinary habits are not bothersome at this time. Denies ever having any UTI sxs. UA today negative for blood and infection. Reports he would be willing to try a medication. -Begin Tamsulosin 0.4mg qd. Rx sent to [facility] in [place]. Discussed the medication side effects, and the patient will monitor closely for these, as well as for symptom improvement. If severe side effects occur, the medication should be stopped and the office notified. 3. A-fib (I48.91: Unspecified atrial fibrillation) On Warfarin 6mg. Pt to obtain cardiac clearance. 4. Inguinal hernia (K40.90: Unilateral inguinal hernia, without obstruction or gangrene, not specified as recurrent) Has had a L inguinal hernia for a while. States he is waiting to get this treated until he has medicare. PE: moderate L inguinal hernia Follow-up With When Contact Information Chadd BOWLING MD, URL [facility] [address] [place] [address]- [phone] Additional Instructions: sched TRUS/bx Patient Education Transrectal Ultrasound-Guided Prostate Biopsy, Care After Transrectal Ultrasound-Guided Prostate Biopsy Radha Heredia, personally scribed for Dr. Bowling on 08/10/2023 12:29:36. . Documentation recorded by the [facility] (more content not included)... [facility] Comment on above: Result Comment: Elec tronically Signed By: Chadd BOWLING MD\.br\Date and Time Signed: 08/10/23 12:31 EST\.br\Electronically Co-Signed By: Radha Balderas\.br\Date and Time Co-Signed: 08/10/23 12:30 EST 08-10-2023 Hospital Discharge instructions Patient Education 08/10/2023 12:27:58 Transrectal Ultrasound-Guided Prostate Biopsy, Care After Transrectal Ultrasound-Guided Prostate Biopsy, Care After The following information offers guidance on how to care for yourself after your procedure. Your health care provider may also give you more specific instructions. If you have problems or questions, contact your health care provider. What can I expect after the procedure? After the procedure, it is common to have: Pain and discomfort near your rectum, especially while sitting. Dovray-colored urine due to small amounts of blood in your urine. A burning feeling while urinating. Blood in your stool (feces) or bleeding from your rectum. Blood in your semen. Follow these instructions at home: Medicines Take ukdp-mcz-zgasast and prescription medicines only as told by your health care provider. If you were given a sedative during your procedure, it can affect you for several hours. Do not drive or operate machinery until your health care provider says that it is safe. If you were prescribed an antibiotic medicine, take it as told by your health care provider. Do not stop using the antibiotic even if you start to feel better. Activity Return to your normal activities as told by your health care provider. Ask your health care provider what activities are safe for you. Ask your health care provider when it is okay for you to resume sexual activity. You may have to avoid lifting. Ask your health care provider how much you can safely lift. General instructions Drink enough fluid to keep your urine pale yellow. Watch your urine, stool, and semen for new or increased bleeding. Keep all follow-up visits. This is important. Contact a health care provider if: You have any of the following: ?Blood clots in your urine or stool. ?Blood in your urine more than 2 weeks after the procedure. ?Blood in your semen more than 2 months after the procedure. ?New or increased bleeding in your urine, stool, or semen. ?Severe pain in your abdomen. Your urine smells bad or unusual. You have trouble urinating. Your lower abdomen feels firm. You have problems getting an erection. You have nausea or you vomit. Get help right away if: You have a fever or chills. This could be a sign of infection. You have bright red urine. You have severe pain that does not get better with medicine. You cannot urinate. Summary After this procedure, it is common to have pain and discomfort around your rectum, especially while sitting. You may have blood in your urine and stool after the procedure. It is common to have blood in your semen after this procedure. Get help right away if you have a fever or chills. This could be a sign of infection. This information is not intended to replace advice given to you by your health care provider. Make sure you discuss any questions you have with your health care provider. Document Revised: 01/13/2022 Document Reviewed: 01/13/2022 [employer] Patient Education 2022 [employer]™. 08/10/2023 12:27:58 Transrectal Ultrasound-Guided Prostate Biopsy Transrectal Ultrasound-Guided Prostate Biopsy A transrectal ultrasound-guided prostate biopsy is a procedure to remove samples of prostate tissue for testing. The prostate is a walnut-sized gland that is located below the bladder and in front of the rectum. During this procedure, a small device (probe) is lubricated and put inside the rectum. The probe sends out sound waves that make a picture of the prostate and surrounding tissues (transrectal ultrasound). The images are used to help guide the process of removing the samples. The samples are taken to a lab to be checked for prostate cancer. This procedure is usually done to evaluate the prostate gland of men who have raised (elevated) levels of prostate-specific antigen (PSA), which can be a sign of prostate cancer or prostate enlargement related to aging (benign prostatic hyperplasia, or BPH). Tell a health care provider about: Any allergies you have. All medicines you are taking, including vitamins, herbs, eye drops, creams, and rnbr-brj-uzkhsmn medicines. Any problems you or family members have had with anesthetic medicines. Any bleeding problems you have. Any surgeries you have had. Any medical conditions you have. Any prostate infections you have had. What are the risks? Generally, this is a safe procedure. However, problems may occur, including: Prostate infection. Bleeding from the rectum. Blood in the urine. Allergic reactions to medicines. Damage to surrounding structures such as blood vessels, organs, or muscles. Difficulty passing urine. Nerve damage. This is usually temporary. What happens before the procedure? Medicines Ask your health care provider about: Changing or stopping your regular medicines. This is especially important if you are taking diabetes medicines or blood thinners. Taking medicines such as aspirin and ibuprofen. These medicines can thin your blood. Do not take these medicines unless your health care provider tells you to take them. Taking ljvz-zfj-emksjsv medicines, vitamins, herbs, and supplements. General instructions Follow instructions from your health care provider about eating and drinking. In most instances, you will not need to stop eating and drinking completely before the procedure. You will be given an enema. During an enema, a liquid is injected into your rectum to clear out waste. You may have a blood or urine sample taken. Ask your health care provider what steps will be taken to help prevent infection. These steps may include: ?Washing skin with a germ-killing soap. ?Taking antibiotic medicine. If you will be going home right after the procedure, plan to have a responsible adult: ?Take you home from the hospital or clinic. You will not be allowed to drive. ?Care for you for the time you are told. What happens during the procedure? An IV will be inserted into one of your veins. You will be given one or both of the following: ?A medicine to help you relax (sedative). ?A medicine to numb the area (local anesthetic). You will be placed on your left side, and your knees will be bent toward your chest. A probe with lubricated gel will be placed into your rectum, and images will be taken of your prostate and surrounding structures. Numbing medicine will be injected into your prostate. A biopsy needle will be inserted through your rectum or perineum and guided to your prostate using the ultrasound images. Prostate tissue samples will be removed, and the needle and probe will then be removed. The biopsy samples will be sent to a lab to be tested. The procedure may vary among health care providers and hospitals. What happens after the procedure? Your blood pressure, heart rate, breathing rate, and blood oxygen level will be monitored until you leave the hospital or clinic. You may have some discomfort in the rectal area. You will be given pain medicine as needed. If you were given a sedative during the procedure, it can affect you for several hours. Do not drive or operate machinery until your health care provider says that it is safe. It is up to you to get the results of your procedure. Ask your health care provider, or the department that is doing the procedure, when your results will be ready. Keep all follow-up visits. This is important. Summary A transrectal ultrasound-guided biopsy removes samples of tissue from your prostate using ultrasound-guided sound waves to help guide the process. This procedure is usually done to evaluate the prostate gland of men who have raised (elevated) levels of prostate-specific antigen (PSA), which can be a sign of prostate cancer or prostate enlargement related to aging. After your procedure, you may feel some discomfort in the rectal area. Plan to have a responsible adult take you home from the hospital or clinic, and follow up with your health care provider for your results. This information is not intended to replace advice given to you by your health care provider. Make sure you discuss any questions you have with your health care provider. Document Revised: 01/13/2022 Document Reviewed: 01/13/2022 [employer] Patient Education 2022 [employer]™. Follow Up Care 04/15/2023 08:43:29 With:MICKY GARRISON, Chadd Hernández, URL Address: [facility] [address], [place] [phone] When: Unknown Comments:sched TRUS/bx [facility] 01-02-2023 Note Continue statin [facility] 01-02-2023 Note Coronary artery dise ase is stable without concerning symptoms Continue GDMT continue risk factor modifications- heart healthy diet, regular exercise as tolerated and continue all medications. [facility] 01-02-2023 Note NYHC- II currently e uvolemic without exacerbation Continue GDMT- ASA, coreg, pravastatin, and lisinopril Diuretic therapy Monitor daily weights, I&O, fluid restriction 1.5-2L/day, renal function and electrolytes- [facility] 01-02-2023 Note B/P elevated today, but he states he rushed here today and typically his b/p is well controlled Continue all meds [facility] 01-02-2023 Note [facility] ESS NOTE HPI: Sukhdeep Gamino is a 62 y.o. 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 Denied chest pain, shortness of breath, orthopnea, leg swelling or weight gain. States cloths are fitting as per usual, but states he has had swelling of face/and under eye bags for a while now. Overall states from a heart perspective he is feeling well. Denied any bleeding tendencies, or palpitations. Review of Systems Constitutional: Negative. Respiratory: Negative. Cardiovascular: Negative. Neurological: Negative. All other systems reviewed and are negative. Visit Vitals BP 142/80 (BP Location: Left arm, Patient Position: Sitting) Pulse 83 Ht 1.778 m (5' 10 ) Wt 86.6 kg (191 lb) SpO2 98% BMI 27.41 kg/m??? Smoking Status Never BSA 2.07 m??? No Known Allergies Medications: Current Outpatient Medications on File Prior to Visit Medication Sig Dispense Refill aspirin 81 mg EC tablet in the morning. warfarin (Coumadin) 6 mg tablet warfarin 6 mg tablet TAKE 1 TABLET BY MOUTH ONCE DAILY, THEN ON ODD DAYS ADD 1MG TABLET WITH THE 6MG TABLET [DISCONTINUED] carvedilol (Coreg) 25 mg tablet Take 1 tablet by mouth in the morning and at bedtime. [DISCONTINUED] dilTIAZem CD (Cardizem CD) 120 mg 24 hr capsule Take 120 mg by mouth in the morning. [DISCONTINUED] lisinopril 10 mg tablet Take 10 mg by mouth in the morning. [DISCONTINUED] pravastatin (Pravachol) 40 mg tablet Take 1 tablet (40 mg) by mouth in the morning. 90 tablet 3 [DISCONTINUED] sacubitriL-valsartan (Entresto) 24-26 mg tablet Take 1 tablet by mouth twice a day. No current facility-administered medications on file prior to visit. Physical Exam: Constitutional: Appearance: Normal appearance. Without apparent distress HENT: Head: Normocephalic and atraumatic. Nose: Nose normal. Mouth/Throat: Mouth: Mucous membranes are moist. Eyes: Extraocular Movements: Extraocular movements intact. Conjunctiva/sclera: Conjunctivae normal. Neck: Vascular: No JVD. Cardiovascular: Rate and Rhythm: Normal rate and regular rhythm. Pulses: Dorsalis pedis pulses are 3 on the right side and 3on the left side. Posterior tibial pulses are 3 on the right side and 3 on the left side. Heart sounds: Normal heart sounds, S1 normal and S2 normal. Pulmonary: Effort: Pulmonary effort is normal. Breath sounds: Normal breath sounds. Abdominal: General: Bowel sounds are normal. Palpations: Abdomen is soft. Musculoskeletal: General: Normal range of motion. Cervical back: Normal range of motion. Right lower leg: No edema. Left lower leg: No edema. Skin: General: Skin is warm and dry. Capillary Refill: Capillary refill takes less than 2 seconds. Neurological: General: No focal deficit present. Mental Status: alert and oriented to person, place, and time. Psychiatric: Mood and Affect: Mood normal. Behavior: Behavior normal. Thought Content: Thought content normal. Judgment: Judgment normal. Labs: No recent labs and he defers r/t cost Last lab values have been reviewed [facility]01/28/2021 Cardiac Cath 01/17/21 Echo 04/12/20 Echo Left Ventricle: The left ventricle is normal size. Global left ventricular systolic function is difficult to assess due to rhythm but appears reduced. The calculated Biplane EF is 40 %. Left ventricular wall thickness is normal. The septum is abnormal in its motion. Unable to assess diastolic dysfunction. Right Ventricle: The right ventricle is normal in size. Normal right ventricular systolic function. Doppler studies suggest normal right sided pressures. Left Atrium: The left atrium is severely enlarged. Right Atrium: The right atrium is severely enlarged. Mitral Valve: Mild mitral regurgitation. Aorta: Mild dilatation of the ascending aorta. Overall Conclusions: recommend opacification of LV cavity to identfy endocardial border or MUGA Measurements No echocardiogram results found for the past 12 months Assessment/Plan: Benign hypertensive cardiomyopathy with heart failure (CMS/HCC) B/P elevated today, but he states he rushed here today and typically his b/p is well controlled Continue all meds Chronic systolic CHF (congestive heart failure), NYHA class 2 (CMS/HCC) NYHC- II currently euvolemic without exacerbation Continue GDMT- ASA, coreg, pravastatin, and lisinopril Diuretic therapy Monitor daily weights, I&O, fluid restriction 1.5-2L/day, renal function and electrolytes- Coronary artery disease involving [place] coronary artery of [place] heart without angina pectoris Coronary artery disease is stable without concerning symptoms Continue GDMT continue risk factor modifications- heart healthy diet, regular exercise as tolerated and continue all medications. Mixed hyper (more content not included)... [facility] 01-02-2023 Note Patient here for 1 y ear follow up chronic systolic heart failure, CAD, hypertension, and afib. Dr. Huff stopped Entresto at last apt in January 2022 and started him on lisinopril. Denies chest pain, SOB, LE edema, and bleeding on warfarin. C/o easy bruising. He states people mention his facial swelling to him and think he's in heart failure. Review of Systems Hematologic/Lymphatic: Bruises/bleeds easily. Musculoskeletal: Positive for arthritis, back pain and myalgias. All other systems reviewed and are negative. [facility] 06-03-2021 History of Present illness Narrative Chief complaint: [facility] - PREOPERATIVE MEDICAL RISK STRATIFICATION Patient Name : Sukhdeep Gamino Patient : 1960 Patient Provider Name : Yohan Johnson MD Date Of PAT Appointment : 06/03/21 Date of Surgery Planned : 06/26/2021 Referring Physician : Dr. Caryl Acevedo Type of Surgery Planned : Right YOSELYN IMPRESSION AND PLAN : Preoperative medical risk stratification indicates that this patient is at medically acceptable risk for major orthopedic surgery with risk factors described below, pending ordered lab, in addition to cardiac clearance and review of most recent cardiac testing Osteoarthritis, right hip. Now for right total hip replacement. Management per surgical service. This patient has been advised to discontinue aspirin, NSAIDs, and specific herbals/aeoq-vfp-uflyycg's preprocedure. Patient has been advised on preoperative prescription drug management both verbally and in written form. This patient has history of nonobstructive CAD, chronic systolic heart failure, as well as chronic A. fib. Currently no active cardiac conditions and would be considered at elevated risk for a major adverse cardiac event (MACE) based on revised cardiac risk index (RCRI) score of greater than or equal to 2. This patient has an activity level of at least 4 METS, and thus would be considered at acceptable cardiac risk based on current [place] [employer]/[place] [employer] (ACC/AHA) guidelines on tammy-operative cardiovascular evaluation and management of patient's undergoing non-cardiac surgery. Patient actively follows with comprehensive advisor. Have requested correspondence with patient's comprehensive advisor for additional risk stratification. Addition of requested copies of her recent cardiac testing Coronary Artery Disease (I25.10) apparently nonobstructive based upon more recent diagnostic left heart cath. Has never required stents or any percutaneous intervention.. Patient continue on his current cardiac prescription medications including Coreg, statin and and low-dose aspirin perioperatively. Consider monitoring patient perioperatively with serial cardiac enzymes/EKGs as needed. Correspondence with patient's comprehensive advisor to assure optimization for surgery and obtain any copies of recent cardiac testing. Have also required input on holding antiplatelet/anticoagulant therapy for surgery. Cardiomyopathy, not further specified. Presently controlled with prescription pharmacologic medications which should be continued perioperatively. Clinically appears to be well compensated on recent cardiac regime. Patient given instructions on management of cardiac medications perioperatively. Most recent cardiac records have been reviewed available. Requested most recent cardiac records for evaluation of his current ejection fraction . Chronic atrial fibrillation, currently rate and rhythm controlled. Patient will be at risk for perioperative tachyarrhythmia and should be maintained on current antiarrhythmic therapy. In addition patient will be at risk for thromboembolic complications while off anticoagulation. Chronic anticoagulation should be resumed post procedure as soon as possible as acceptable to the surgical service. Would consider monitoring on telemetry if requires hospitalization. Hypertension well-controlled clinically optimized for surgery. Patient has been given advice on management of his antihypertensive therapy perioperatively. Hyperlipidemia -currently controlled with statin/lipid lowering therapy, which should be continued perioperatively to help reduce cardiovascular risk related complications. Allergic Rhinitis, Unspecified -controlled with nasal steroids which may be continued perioperatively Asthma - Mild & intermittent. (J45.20) well-controlled and clinically optimized for surgery. Patient been encouraged to continue her current regiment in addition encouraged use of inhalers a.m. of surgery as needed Postoperative DVT prophylaxis is recommended per current ACCP guidelines. Special note patient is on chronic Coumadin due to underlying chronic A. fib no need to resume post procedure. COVID-19 screening. This patient denies any prior history of COVID-19 or any recent exposure history. Denies any signs or any symptoms of acute viral infection at today's pre-admission testing visit. Patient should follow the surgical facilities guidelines regarding preoperative COVID-19 testing. He reports he has had 2 doses of the [employer]veDoc COVID-19 vaccine BMI of 27.- patient will follow up with their primary care physician for weight loss management and lifestyle modification. Patient is at intermediate risk/probability for obstructive sleep apnea based on NASRIN screening questionnaire. Patient should be monitored via [place] standard postop NASRIN protocol least continuous pulse oximetry HISTORY OF PRESENT ILLNESS : This is a 60 y.o., male year-old patient presenting for preoperative medical risk stratification at the request of Dr. Acevedo, prior to right total hip replacement. This patient presents with complaints of pain involving the right hip for the past 3 to 5 years. He reports symptoms have progressed over the last 1 to 2 years. He now reports complaints of constant and moderate to severe pain. He underwent imaging evaluation by a surgeon found of advanced arthritis involving the right hip. Patient now scheduled to go right total hip replacement at [facility] scheduled for June 26, 2021. Internal Medicine has been consulted for preoperative medical risk stratification. Please see below regarding the status of active medical conditions and assessment and plan for preoperative medical risk stratification. MEDICAL ILLNESSES : 1. Osteoarthritis involving the right hip as above 2. Hypertension diagnosed in 2019 managed by his primary care physician and comprehensive advisor 3. Chronic atrial fibrillation diagnosed in 2008. He reports undergoing previous cardioversion at the time of his initial diagnosis but reverted to A. Fib. He denies any history of stroke or atheroembolic phenomena. He is maintained on chronic warfarin 4. Coronary artery disease. Apparently noted to be nonobstructive based upon initial LHC in 2008. Patient states he underwent more recent updated LHC at [facility] in [facility]. He reports he was noted to have some mild disease but did not require any percutaneous intervention or stents. 5. Congestive heart failure. Patient was initially diagnosed with CHF in 2008 requiring hospitalization associate with underlying A. Fib. He now reports chronic systolic heart failure being treated by his comprehensive advisor and maintained on Entresto and Carvedilol. He reports his most recent ejection fraction by echo earlier this year was around 45% 6. Hyperlipidemia presently treated with statin 7. Asthma diagnosed in 1989. Without recent exacerbation. Controlled with use of inhalers 8. Allergic rhinitis for which she reports use of fluticasone nasal spray PAST MEDICAL HISTORY : SURGERIES : 1. Sinus polypectomy in 1995 Allergies : No known drug allergies Metal Allergies : None MEDICATIONS Reviewed and Confirmed : 1. Aspirin low-dose 81 mg p.o. daily a.m. 2. Entresto 24-26 mg 1 tablet p.o. twice daily 3. Pravastatin 40 mg p.o. daily p.m. 4. Warfarin 6 mg p.o. daily p.m. 5. Diltiazem ER 120 mg daily p.m. 6. Carvedilol 25 mg p.o. twice daily 7. Qvar 40 mg 2 puffs twice daily 8. Fludrocortisone propionate 50 mcg 1 squirt each nostril twice daily TRANSFUSION HISTORY No Previous Blood transfusions No Previous Transfusion Related Reactions No Druze Reasons To Avoid Blood Transfusions No Personal History of a Bleeding Disorders ANESTHESIA HISTORY No Previous Adverse Reactions to Anesthesia Family History : No Family History of Bleeding Disorder No Family History of Deep Vein Thrombosis No Family History of Anesthesia Related Complications Positive her father with premature cortices. from heart attack at the age of 42. Patient also reports he had a enlarged heart Social History : Tobacco Use: Denies Alcohol Abuse: Denies Substance Abuse: Denies REVIEW OF SYSTEMS Positive for function passive greater than 4 METS without chest pain symptoms. He does report occasional PETERSON. Positive hypertension. Chronic A. fib. Private Branch Exchange Service Adviser is Dr. Adriana Adamey is most recently seen by nurse practitioner April 12, 2021. Patient reports he is undergone 2 previous heart caths one in 2008 and more recently April 2021. Per his description both showed nonobstructive CAD. He also reports undergoing echocardiogram back in 2008 and more recently November 2020 by his comprehensive advisor. He believes his most recent ejection fraction was around 45%. Positive seasonal/environmental allergies. Otherwise negative for 10 organ systems except as outlined above VITALS : BP 130/80, temp 97.7, heart rate 94, sat 96% room air, height 70 inches, weight 194 pounds, BMI 27 PHYSICAL EXAM : General - No acute distress; Alert and conversational Skin - Normal skin temperature; no rashes or ulcerations noted on lower extremities Eyes -Pupils equal; Anicteric Sclerae ENMT - Hearing Intact; Oropharynx clear with moist mucosa Neck-Normal range of motion; No gross thyromegaly Cardiac - No tachycardia noted; lightly distant heart tones. Irregular regular rhythm. No audible murmur. No Peripheral Edema Respiratory - Clear to auscultation bilaterally; No accessory respiratory muscle use noted; No Wheezing Abdominal - Non-tender to palpation; Soft with positive bowel sounds and no obvious mass Musculoskeletal - No clubbing of digits noted; No cyanosis of digits noted right hip shows pain with passive range of motion. Walks with antalgic gait Psychiatric/Neuro- Appropriate affect, Alert and oriented, No gross motor deficit Results : EKG INDEPENDENTLY INTERPRETED AT [facility] : EKG ordered and read independently reveals atrial fibrillation with controlled rate heart rate 97. LAFB. I.e. abnormal ECG LABS ORDERED AT PAT : CBC & BMP ADDITIONAL RELEVANT RESULTS AND/OR RECORDS REVIEWED OR REQUESTED AT [facility] : Cardiac clearance requested. Copies of most recent echocardiogram and heart cath requested A copy of this report has been made available to the referring physician in the hospital's EMR and/or by being faxed to the surgeon's office/surgery center. Yohan Johnson MD documented in this encounter [facility] Evaluation + Plan note Future Appointments Appointment Date:09/11/2023 10:30:00 AM Scheduled Provider:Chadd BOWLING MD Location:[facility] Appointment Type:URO Office Visit [facility] Evaluation note Diagnosis Pain Generalized pain [facility] Work Phone: Hospital course Narrative No data available for this section [facility] Progress note No data available for this section [facility] [place] reason for visit Narrative* Auth/Cert Specialty Diagnoses / Procedures Referred By Blas villarreal Referred To Contact Diagnoses Unilateral primary osteoarthritis, right hip RIGHT HIP PAIN Procedures MT ARTHROPLASTY ACETABULAR AND PROXIMAL FEMORAL PROSTHETIC REPLACEMENT (TOTAL HIP ARTHROPLASTY) WITH OR WITHOUT AUTOGRAFT OR ALLOGRAFT ARTHROPLASTY HIP TOTAL RIGHT ANTERIOR Caryl Acevedo MD [address] [place] [address] Brice Goldstein Or [address] [place] [address] Referral ID Status Reason Start Date Expiration Date Visits Re quested Visits Authorized [id number] 1 1 [facility] Summary Purpose Family History No Family History Records FoundNo Family History Records FoundNo Family History Records FoundNo Family History Records Found No data available for this section No data available for this section No data available for this section No Family History Records FoundNo Family History Records FoundNo Family History Records Found Advance Directives No Advanced Directives Records FoundDocuments on File Type Date Recorded 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 Do not modify or discontinue any currently active code status orders. Provide all therapy to prevent/treat cardiac or respiratory arrest. Advance Directive Response Recorded Date/ Time Advance Directives No March 28, 2020 10:21am Additional Source Comments (unrecognized sect ion and content) No Status Records FoundNo Status Records FoundNo Status Records FoundNo Status Records FoundNo Status Records FoundNo Status Records FoundNo Status Records Found INFORMATION SOURCE (unrecogn ized section and content) DATE CREATED AUTHOR 02/07/2021 [facility] DATE CREATED AUTHOR AUTHOR'S ORGANIZ ATION 06/28/2021 [facility] DATE CREATED AUTHOR AUTHOR'S ORGANIZ ATION 05/29/2022 [facility] DATE CREATED AUTHOR AUTHOR'S ORGANIZ ATION 01/10/2023 [facility] DATE CREATED AUTHOR AUTHOR'S ORGANIZ ATION 09/01/2023 [facility] DATE CREATED AUTHOR AUTHOR'S ORGANIZ ATION 09/01/2023 [facility] DATE CREATED AUTHOR AUTHOR'S ORGANIZ ATION 09/02/2023 [facility] Reason for Visit (unrecogniz ed section and content) Reason Comments Pre-op Exam Care Teams (unrecognized sec tion and content) 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 This clinical summary was aggregated from multiple sources. Caution should be exercised in using it in the provision of clinical care. This summary normalizes information from multiple sources, and as a consequence, information in this document may materially change the coding, format and clinical context of patient data. In addition, data may be omitted in some cases. CLINICAL DECISIONS SHOULD BE BASED ON THE PRIMARY CLINICAL RECORDS. [facility] [employer] [facility]. provides no warranty or guarantee of the accuracy or completeness of information in this document.
== END 2023-09-02 07:10 | disposition home or self-care (01) ==
LOC: NM 07:16
PROVIDERS: PCP Family Medicine; Visit Provider Urology
DX: C61 Malignant neoplasm of prostate (principal)
CPT/HCPCS: 78306; A9503

== ENCOUNTER 2024-01-12 15:28 | Outpatient (RCR) | payer MEDICARE, OTHER, SELFPAY | END 2024-01-13 15:58 | disposition home or self-care (01) | LOC: PT 15:28 | PROVIDERS: PCP Family Medicine | DX: N39.3 Stress incontinence (female) (male) (principal) | CPT/HCPCS: 97110; 97161 ==

== ENCOUNTER 2024-05-26 08:04 | Outpatient (OUT) | payer MEDICARE, OTHER, SELFPAY ==
--- OUTSIDE RECORDS SUMMARY | 2024-05-26 08:10 | XMS_ITS | CCD ---
Author Organization [facility]ini[facility] Care Team Providers Care Medical Device Sales Representative Name Role Phone ELTAHAWY, EHAB A Admitting Unavailable ELTANENITA, EHAB A Attending Unavailable ALEK FATIMA Primary Care Unavailable ALEK FATIMA Referring Unavailable Unavailable Primary Care Provider Alek Masterson MD Primary Care Provider [phone] ALEK FATIMA Primary Care Unavailable CARYL ACEVEDO Admitting Unavailable CARYL ACEVEDO Attending Unavailable CON[facility]ULTANT[facility], [facility] Consulting Unavailable CARYL ACEVEDO Referring Unavailable ALEK FATIMA Primary Care Unavailable KUSHAL, DR GASTON Primary Care Unavailable MISC, DR BUSCH Admitting Unavailable MISC, DR BUSCH Attending Unavailable KUSHAL, DR GASTON Primary Care Unavailable KUSHAL, DR GASTON Admitting Unavailable KUSHAL, DR GASTON Attending Unavailable KUSHAL, DR GASTON Consulting Unavailable KUSHAL, DR GASTON Primary Care Unavailable KUSHAL, DR GASTON Admitting Unavailable KUSHAL, DR GASTON Attending Unavailable KUSHAL, DR GASTON Consulting Unavailable ZIEBER, DR ALL Hernández Consulting Unavailable Alek Fatima Primary Care Physician MD Cesia Weeks Attending Provider Unavailable Primary Care Provider UnavailMD Alek Hardwick Primary Care Provider [phone] Cesia WEEKS Attending Unavailable Cesia WEEKS Attending Unavailable Cesia WEEKS Attending Unavailable Alek Fatima Referring Unavailable Cesia Weeks Admitting Unavailable Cesia Weeks Attending Unavailable Cesia Weeks Attending Unavailable Alek Fatima Primary Care Unavailable Cesia Weeks Admsheila Unavailable Alek Fatima MD Primary Care Provider [phone] IAMEE CLEMENT Attending Unavailable JANELL HUFFAB Attending Unavailable Alek Fatima MD Primary Care Provider [phone] VIRAL HERNANDEZ Attending Unavailable VIRAL HERNANDEZ Attending Unavailable ROXANA BAH Attending Unavailable CESIA WEEKS Referring Unavailable HOY, ALEK M Primary Care Unavailable ROXANA BAH Referring Unavailable HOY, ALEK M Primary Care Unavailable ROXANA BAH Referring Unavailable HOY, ALEK M Primary Care Unavailable HOY, ALEK M Primary Care Unavailable ROXANA BAH Referring Unavailable HOY, ALEK M Primary Care Unavailable HOY, ALEK M Primary Care Unavailable WARMMARQUES, KATRINA Attending Unavailable HOY, ALEK M Primary Care Unavailable HOY, ALEK M Primary Care Unavailable ROXANA BAH Attending Unavailable ROXANA BAH Admitting Unavailable WARMINSKI, KATRINA Referring Unavailable Mich KAMARA Attending Unavailable HOY, ALEK M Primary Care Unavailable HOY, ALEK M Primary Care Unavailable WARMINSKI, KATRINA Attending Unavailable HOY, ALEK M Primary Care Unavailable JOHN HUMPHREYS Attending Unavailabl e ROXANA BAH Referring Unavailable HOY, ALEK M Primary Care Unavailable ROXANA BAH Referring Unavailable HOY, ALEK M Primary Care Unavailable Mich KAMARA Referring Unavailable HOY, ALEK M Primary Care Unavailable HOY, ALEK M Primary Care Unavailable ENGMich BOYLE Attending Unavailable ENGELERMich Attending Unavailable HOY, ALEK M Primary Care Unavailable HOY, ALEK M Primary Care Unavailable ROXANA BAH Referring Unavailable HOY, ALEK M Primary Care Unavailable ROXANA BAH Referring Unavailable HOY, ALEK M Primary Care Unavailable ROXANA BAH Referring Unavailable HOY, ALEK M Primary Care Unavailable WARMINSKI, KATRINA Attending Unavailable HOY, ALEK M Primary Care Unavailable HOY, ALEK M Primary Care Unavailable Allergies Allergy Classification Reported Allergen(s) Allergy Type Date of Onset Reaction(s) Facility Unclassified (1 source) 95955,00; Translations: [38140,00] Propensity to adverse reactions (disorder) 9 [facility] Repository (1 source) No Known Medication Allergies; Translations: [No Known Medication Allergies] Propensity to adverse reactions (disorder) [facility] Repository (20 sources) Ciprofloxacin; Translations: [CIPROFLOXACIN] Drug Allergy 4 [facility] Work Phone: Medications Current Medications Medication Drug Class(es) Dates Sig (Normalized) Sig (Original) 30 ACTUAT fluticasone furoate 0.05 MG/ACTUAT / vilanterol 0.025 MG/ACTUAT Dry Powder Inhaler (3 sources) Start: 08-10-2023 take 1 puff(s) by inhalation once daily fluticasone-vilante rol 50 mcg-25 mcg/inh. inhalation powder puff(s), Inhalation, Daily, Refill(s) 0 Start Date: 08/10/23 Status: Ordered acetaminophen 500 mg oral tablet (20 sources) Start: 11-06-2023 take 2 tablets by mouth every eight hours as needed acetaminophen (TYLENOL EXTRA STRENGTH) 500 mg tablet Take 2 tablets by mouth every 8 hours as needed for pain for up to 40 doses. 40 tablet 11/06/2023 Active Comment on above: Take 2 tablets by mo [facility] every 8 hours as needed for pain for up to 40 doses. 10 ml aminophylline 25 mg/ml injection (4 sources) Start: 11-05-2023 End: 11-13-2023 aminophylline 50-250 mg injection apixaban 2.5 mg oral tablet (4 sources) Factor Xa Inhibitor Start: 11-06-2023 End: 11-13-2023 take 1 tablet by mouth twice daily apixaban (ELIQUIS) 2.5 mg tab(s) Take 1 tablet by mouth two times a day for 7 days. 14 tablet 0 11/06/2023 11/13/2023 Active Comment on above: Take 1 tablet by duarte two times a day for 7 days. carvedilol 25 mg oral tablet (20 sources) alpha-Adrenergic José Miguel, beta-Adrenergic José Miguel Start: 07-09-2023 take 1 tablet by mouth at bedtime carvedilol (COREG) 25 mg tablet TAKE 1 TABLET BY MOUTH IN THE MORNING AND AT BEDTIME 07/09/2023 Active take 1 tablet by mouth twice fernando ly carvediloL (COREG) 25 mg tablet Take 25 mg by mouth 2 (two) times a day. 0 Suspended Comment on above: TAKE 1 TABLET BY DUARTE TH IN THE MORNING AND AT BEDTIME ciprofloxacin 500 mg oral tablet (1 source) Quinolone Antimicrobial Start: 4 End: 4 Cipro 500 mg Tab 500 mg = 1 tab(s), Oral, BID, start 3 days prior to procedure, X 7 day(s), # 14 tab(s), Refills(s) 0, Pharmacy: [id number], 178, cm, 08/10/23 11:30:00 EST, Height/Length Dosing, 88.5, kg, 08/10/23 11:30:00 EST, Weight Dosing Start Date: 08/10/23 Stop Date: 08/17/23 Status: Ordered 24 hr dilTIAZem hydrochloride 120 mg extended release oral capsule (20 sources) Calcium Channel José Miguel Start: take 1 capsule by mouth once daily dilTIAZem CD (CARDIZEM CD, CARTIA XT) 120 mg 24 hr capsule TAKE 1 CAPSULE BY MOUTH ONCE DAILY DIRECTED 07/12/2023 Active take 1 capsule by [facility] at bedtime, then take 1 capsule by mouth every twenty-four hours dilTIAZem CD (CARDIZEM CD) 120 mg 24 hr capsule Take 120 mg by mouth at bedtime. 0 Suspended Comment on above: TAKE 1 CAPSULE BY [facility] ONCE DAILY DIRECTED DilTIAZem (Eqv-Cardizem CD) 120 mg/24 hours oral capsule, extended release (3 sources) Start: 08-10-2023 DilTIAZem (Eqv-Cardizem CD) 120 mg/24 hours oral capsule, extended release Refills(s) 0 Start Date: 08/10/23 Status: Ordered fluticasone propionate 0.05 mg/actuat metered dose nasal spray (20 sources) Corticosteroid fluticasone (GRETTA NASE) 50 mcg/actuation nasal spray 1 [place]. Active take 1 spray(s) nasal route twic e daily fluticasone propionate (Flonase Allergy Relief) 50 mcg/actuation nasal spray Administer 1 spray into each nostril 2 (two) times a day. Shake gently. Before first use, prime pump. After use, clean tip and replace cap. 0 Suspended Comment on above: 1 [place]. iv contrast (will be provided with radiology test) (1 source) Start: 05-19-20 End: 05-20-20 iv contrast (will be provided with radiology test) MRI CSP Inject, intravenously, once for 1 dose. No IV access, insert saline lock prior to the beginning of sedation, infusion, injection of imaging exam. Discontinue saline lock post exam. If Pt. has a central line or IVAD, may access for administration according to line specific nursing protocol. Once exam is complete flush line and de-access according to line specific nursing protocol in the MR contrast administration guidelines link. 1 Each 05/19/2024 05/20/2024 Active lisinopril 10 mg oral tablet (20 sources) Angiotensin Converting Enzyme Inhibitor Start: 07-09-20 take 1 tablet by mouth once daily lisinopril (ZESTRIL) 10 mg tablet Take 10 mg by mouth once daily. 07/09/2023 Active Comment on above: Take 10 mg by mouth once daily. 5 ml metoprolol tartrate 1 mg/ml injection (4 sources) beta-Adrenergic José Miguel Start: 11-05-19 End: 11-13-19 metoprolol 2.5-5 mg injection (LOPRESSOR) perflutren lipid microspheres 1.3 mL in NaCl (PF) 0.9% 10 mL injection (DEFINITY) (4 sources) Start: 11-05-19 End: 11-13-19 perflutren lipid microspheres 1.3 mL in NaCl (PF) 0.9% 10 mL injection (DEFINITY) pravastatin sodium 40 mg oral tablet (20 sources) HMG-CoA Reductase Inhibitor Start: 07-09-20 take 1 tablet by mouth once daily at bedtime pravastatin (PRAVACHOL) 40 mg tablet Take 40 mg by mouth daily at bedtime. 07/09/2023 Active take 1 tablet by mouth at bedtim e pravastatin (PRAVACHOL) 40 mg tablet Take 40 mg by mouth at bedtime. 0 Suspended Comment on above: Take 40 mg by mouth daily at bedtime. regadenoson 0.4 mg injection (LEXISCAN) (4 sources) Start: 11-05-19 End: 11-13-19 regadenoson 0.4 mg injection (LEXISCAN) 125 ml sodium chloride 9 mg/ml prefilled syringe (4 sources) Start: 11-05-19 End: 11-13-19 sodium chloride 0.9 % (flush) 10 mL (BD POSIFLUSH) tadalafil 5 mg oral tablet (16 sources) Phosphodiesterase 5 Inhibitor Start: 11-18-19 End: 05-17-20 take 1 tablet by mouth once daily Tadalafil (CIALIS) 5 mg tablet Take 1 tablet by mouth once daily. 90 tablet 1 05/17/2024 Active Comment on above: Take 1 tablet by duarte th once daily. warfarin sodium 6 mg oral tablet (20 sources) Vitamin K Antagonist Start: 08-10-19 warfarin 6 mg Tab Refills(s) 0 Start Date: 08/10/23 Status: Ordered Start: 07-17-2023 take 1 tablet by mouth once wa rfarin (COUMADIN) 6 mg tablet Take 1 tablet by mouth every afternoon. 07/17/2023 Active take 1 tablet by duarte th at bedtime warfarin (COUMADIN) 6 mg tablet Take 6 mg by mouth at bedtime. 0 Suspended Comment on above: Take 1 tablet by duarte th every afternoon. Completed/Discontinued Medications Medication Drug Class(es) Dates Sig (Normalized) Sig (Original) aspirin 81 mg delayed release oral tablet (19 sources) Platelet Aggregation Inhibitor, Nonsteroidal Anti-inflammatory Drug End: 04-28-2024 aspirin, enteric coated (ASPIRIN, ENTERIC COATED) 81 mg EC tablet in the morning. 04/28/2024 Discontinued (Discontinued by another Health Care Provider) take 81 mg by mouth once daily A SPIRIN ORAL Take 81 mg by mouth 1 (one) time each day. 0 Suspended Comment on above: in the morning. Beclomethasone (1 source) Corticosteroid take 2 puff(s) by mouth twice daily beclomethasone (QVAR) 40 mcg/actuation inhaler Inhale 2 puffs 2 (two) times a day. Rinse mouth with water after use to reduce aftertaste and incidence of candidiasis. Do not swallow. 0 Suspended bicalutamide 50 mg oral tablet (14 sources) Androgen Receptor Inhibitor Start: End: take 1 tablet by mouth once daily bicalutamide (CASODEX) 50 mg tablet Take 1 tablet by mouth once daily. 30 tablet 2 10/02/2023 11/18/2023 Discontinued (Course of therapy completed) Comment on above: Take 1 tablet by duarte th once daily. cephalexin 500 mg oral capsule (7 sources) Cephalosporin Antibacterial Start: End: take 1 capsule by mouth twice daily cephALEXin (KEFLEX) 500 mg capsule Take 1 capsule by mouth two times a day. 4 capsule 11/12/2023 04/28/2024 Discontinued (Course of therapy completed) Comment on above: Take 1 capsule by [facility] two times a day. docusate sodium 100 mg oral capsule (6 sources) Start: End: take 1 capsule by mouth twice daily docusate sodium (COLACE) 100 mg capsule Take 1 capsule by mouth two times a day. 60 capsule 0 11/06/2023 11/18/2023 Discontinued (Course of therapy completed) Comment on above: Take 1 capsule by [facility] two times a day. 24 hr oxybutynin chloride 5 mg extended release oral tablet (6 sources) Cholinergic Muscarinic Antagonist Start: End: oxybutynin XL (DITROPAN XL) 5 mg 24 hr tablet Take 1 tablet by mouth once daily as needed (bladder spasms) for up to 6 days. Please stop taking at least ONE DAY prior to padgett removal 6 tablet 0 11/06/2023 11/18/2023 Discontinued (Course of therapy completed) Comment on above: Take 1 tablet by [facility] once daily as needed (bladder spasms) for up to 6 days. Please stop taking at least ONE DAY prior to padgett removal sacubitril 24 mg / valsartan 26 mg oral tablet (1 source) Angiotensin 2 Receptor José Miguel take 1 tablet by mouth twice daily sacubitriL-valsartan (ENTRESTO) 24-26 mg per tablet Take 1 tablet by mouth 2 (two) times a day. 0 Suspended tamsulosin hydrochloride 0.4 mg oral capsule (18 sources) alpha-Adrenergic José Miguel Start: End: take 1 capsule by mouth once tamsulosin (FLOMAX) 0.4 mg Take 1 capsule by mouth every afternoon. 0 09/08/2023 11/18/2023 Discontinued (Course of therapy completed) Start: 08-10-2023 take 1 capsule by [facility] once daily tamsulosin 0.4 mg Cap 0.4 mg = 1 cap(s), Oral, Daily, # 30 cap(s), Refills(s) 11, Pharmacy: [id number], 178, cm, 08/10/23 11:30:00 EST, Height/Length Dosing, 88.5, kg, 08/10/23 11:30:00 EST, Weight Dosing Start Date: 08/10/23 Status: Ordered Comment on above: Take 1 capsule by mo uth every afternoon. Problems Active Problems Problem Classification Problem Date Documented Da te Episodic/Chronic Abdominal hernia (6 sources) Inguinal hernia; Translations: [Unilateral inguinal hernia, without obstruction or gangrene, not specified as recurrent] Onset: 08-10-2023 Episodic Asthma (20 sources) Asthma; Translations: [Unspecified asthma, uncomplicated] Onset: 03-03-2012 08-10-2023 Chronic Cancer of prostate (20 sources) Malignant neoplasm of prostate; Translations: [Malignant tumor of prostate] Onset: 08-31-2023 Chronic Cancer of prostate (7 sources) History of malignant neoplasm of prostate; Translations: [Personal history of malignant neoplasm of prostate] Onset: 04-28-2024 12-30-2023 Episodic Cardiac dysrhythmias (20 sources) Unspecified atrial fibrillation; Translations: [Atrial fibrillation] Onset: 03-03-2012 Chronic Congestive heart failure; nonhypertensive (20 sources) Congestive heart failure; Translations: [Heart failure, unspecified] Onset: 01-02-2023 10-08-2023 Chronic Coronary atherosclerosis and other heart disease (20 sources) Chronic ischemic heart disease; Translations: [Chronic ischemic heart disease, unspecified] Onset: 01-02-2023 11-03-2023 Chronic Disorders of lipid metabolism (20 sources) Mixed hyperlipidemia; Translations: [Mixed hyperlipidemia] Onset: 01-02-2023 11-03-2023 Chronic Essential hypertension (20 sources) Hypertensive disorder; Translations: [Essential hypertension] Onset: 03-03-2012 08-06-2023 Chronic Genitourinary symptoms and ill-defined conditions (3 sources) Male urinary stress incontinence; Translations: [Stress incontinence (female) (male)] 11-18-2023 Chronic Hyperplasia of prostate (20 sources) Benign prostatic hypertrophy with outflow obstruction; [...] LEFT LOWER LEG] Onset: 05-26-2022 Episodic Other male genital disorders (2 sources) Erectile dysfunction following radical prostatectomy; Translations: [Erectile dysfunction following radical prostatectomy] 12-30-2023 Chronic Other male genital disorders (1 source) Disorder of prostate; Translations: [Disorder of prostate, unspecified] 11-03-2023 Episodic Other nervous system disorders (1 source) Polyneuropathy, unspecified; Translations: [POLYNEUROPATHY UNSPECIFIED] Onset: 05-28-2022 Chronic Other screening for suspected conditions (not mental disorders or infectious disease) (12 sources) Raised prostate specific antigen; Translations: [Elevated prostate specific antigen [PSA]] Onset: 08-10-2023 Episodic Zehra-; endo-; and myocarditis; cardiomyopathy (except that caused by tuberculosis or sexually transmitted disease) (20 sources) Cardiomyopathy associated with another disorder; Translations: [Cardiomyopathy in diseases classified elsewhere] Onset: 01-02-2023 11-03-2023 Chronic Residual codes; unclassified (1 source) Pain; Translations: [Pain, unspecified] Episodic Spondylosis; intervertebral disc disorders; other back problems (2 sources) Other intervertebral disc degeneration, lumbar region; Translations: [Other intervertebral disc degeneration, lumbosacral region] Onset: 05-28-2022 Chronic Unclassified (1 source) CONTACT W/AND (SUSP) EXPOS COVID-19; Translations: [CONTACT W/AND (SUSP) EXPOS COVID-19] Onset: 07-03-2021 Unclassified (2 sources) Longstanding persistent atrial fibrillation; Translations: [Longstanding persistent atrial fibrillation] Onset: 12-29-2023 Past or Other Problems Problem Classification Problem Date Documented Date Episodic/Chronic Other male genital disorders (1 source) Disorder of prostate, unspecified; Translations: [Prostate disease] Onset: 11-03-2023 Episodic Other nervous system disorders (1 source) Other acute postprocedural pain; Translations: [Post-op pain] Onset: 11-05-2023 Episodic Results Test Name Value Interpretation Reference Range Facility [facility] 05-23-2024 [facility] Telephone (RADTSA) STEVENSONSUKHDEEP ([id number]) 1960 M Date Time Provider Department 05/23/24 ROXY ARMSTRONG During your visit today, we recorded the following information about you: Roxy Armstrong RN 05/23/2024 1:41 PM Signed Call received from [facility]- 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 They need to get an order for XRay ORbits to make sure he does not have any metal. Please sign and we will fax to [facility]. BOY Herring Angela, RN 05/23/2024 3:14 PM Signed Order faxed to [facility]. Roxy Armstrong RN Allergies As of Date: 05/23/2024 Noted Allergy Reaction CIPROFLOXACIN 11/12/2023 4 - Hives Date Reviewed: 04/28/2024 Reviewed by: Divina Braswell LPN - Fully Assessed Reason for Visit: Orders [681] Primary Visit Diagnosis:Prostate cancer (HCC) [C61] Order(s):XR FACIAL BONES 3V AP/LAT/WEEKS [[id number]] Order #: [id number] FUTURE Prescriptions as of 05/23/2024 - Tadalafil (CIALIS) 5 mg tablet Take 1 tablet by mouth once daily. - acetaminophen (TYLENOL EXTRA STRENGTH) 500 mg tablet Take 2 tablets by mouth every 8 hours as needed for pain for up to 40 doses. - pravastatin (PRAVACHOL) 40 mg tablet Take 40 mg by mouth daily at bedtime. - warfarin (COUMADIN) 6 mg tablet Take 1 tablet by mouth every afternoon. - dilTIAZem CD (CARDIZEM CD, CARTIA XT) 120 mg 24 hr capsule TAKE 1 CAPSULE BY MOUTH ONCE DAILY DIRECTED - carvedilol (COREG) 25 mg tablet TAKE 1 TABLET BY MOUTH IN THE MORNING AND AT BEDTIME - lisinopril (ZESTRIL) 10 mg tablet Take 10 mg by mouth once daily. - fluticasone (FLONASE) 50 mcg/actuation nasal spray 1 [place]. Problem List As Of Date 05/23/2024 Noted Resolved Chronic ischemic heart disease [I25.9] 01/02/2023 Diagnosed: 11/03/2023 Chronic systolic (congestive) heart failure (HC*01/02/2023 Diagnosed: 11/03/2023 Mixed hyperlipidemia [E78.2] 01/02/2023 Diagnosed: 11/03/2023 Asthma [J45.909] 03/03/2012 Diagnosed: 11/03/2023 Paroxysmal atrial fibrillation (HCC) [I48.0] 03/03/2012 Diagnosed: 11/03/2023 Cardiomyopathy in diseases classified elsewhere*01/02/2023 Diagnosed: 11/03/2023 Benign prostatic hyperplasia with urinary obstr*08/10/2023 Diagnosed: 11/03/2023 Essential hypertension [I10] 03/03/2012 Diagnosed: 11/03/2023 Malignant neoplasm of prostate (HCC) [C61] 08/31/2023 Diagnosed: 11/03/2023 Prostate cancer (HCC) [C61] 11/05/2023 Encounter Status:[facility] Telephone (RADKESHAA) SUKHDEEP GMAINO ([id number]) 1960 M Date Time Provider Department 05/20/24 Mich KAMARA During your visit today, we recorded the following information about you: Roxy Armstrong RN 05/20/2024 1:17 PM Signed Please sign pended Creat for [facility]. BOY Herring Angela, RN 05/23/2024 8:48 AM Signed Order Signed. Roxy Armstrong RN Allergies As of Date: 05/20/2024 Noted Allergy Reaction CIPROFLOXACIN 11/12/2023 4 - Hives Date Reviewed: 04/28/2024 Reviewed by: Divina Braswell LPN - Fully Assessed Primary Visit Diagnosis:Malignant neoplasm of prostate (HCC) [C61] Order(s):CREATININE BLD [SQCRET] Order #: [id number] FUTURE Prescriptions as of 05/23/2024 - Tadalafil (CIALIS) 5 mg tablet Take 1 tablet by mouth once daily. - acetaminophen (TYLENOL EXTRA STRENGTH) 500 mg tablet Take 2 tablets by mouth every 8 hours as needed for pain for up to 40 doses. - pravastatin (PRAVACHOL) 40 mg tablet Take 40 mg by mouth daily at bedtime. - warfarin (COUMADIN) 6 mg tablet Take 1 tablet by mouth every afternoon. - dilTIAZem CD (CARDIZEM CD, CARTIA XT) 120 mg 24 hr capsule TAKE 1 CAPSULE BY MOUTH ONCE DAILY DIRECTED - carvedilol (COREG) 25 mg tablet TAKE 1 TABLET BY MOUTH IN THE MORNING AND AT BEDTIME - lisinopril (ZESTRIL) 10 mg tablet Take 10 mg by mouth once daily. - fluticasone (FLONASE) 50 mcg/actuation nasal spray 1 [place]. Problem List As Of Date 05/20/2024 Noted Resolved Chronic ischemic heart disease [I25.9] 01/02/2023 Diagnosed: 11/03/2023 Chronic systolic (congestive) heart failure (HC*01/02/2023 Diagnosed: 11/03/2023 Mixed hyperlipidemia [E78.2] 01/02/2023 Diagnosed: 11/03/2023 Asthma [J45.909] 03/03/2012 Diagnosed: 11/03/2023 Paroxysmal atrial fibrillation (HCC) [I48.0] 03/03/2012 Diagnosed: 11/03/2023 Cardiomyopathy in diseases classified elsewhere*01/02/2023 Diagnosed: 11/03/2023 Benign prostatic hyperplasia with urinary obstr*08/10/2023 Diagnosed: 11/03/2023 Essential hypertension [I10] 03/03/2012 Diagnosed: 11/03/2023 Malignant neoplasm of prostate (HCC) [C61] 08/31/2023 Diagnosed: 11/03/2023 Prostate cancer (HCC) [C61] 11/05/2023 Encounter Status:Closed by ROXY ARMSTRONG on 05/23/24 [facility]OVon 05-19-2024 CNOV Office Visit (RADTSA ) SUKHDEEP GAMINO ([id number]) 1960 Date Time Provider Department 05/19/24 11:45 AM LAB/PORT RADT JOSEPH LÓPEZ During your visit today, we recorded the following information about you: Allergies As of Date: 05/19/2024 Noted Allergy Reaction CIPROFLOXACIN 11/12/2023 4 - Hives Date Reviewed: 04/28/2024 Reviewed by: Divina Braswell LPN - Fully Assessed Reason for Visit: Prostate Cancer [590] Cmt: Eligard NOT Given Primary Visit Diagnosis:Malignant neoplasm of prostate (HCC) [C61] Order(s):TREATMENT PARAMETER-NOT NEEDED [9923802] Order #: [id number]: 1 [facility] NURSING COMMUNICATION [[id number]] Order #: [id number]: 1 [facility] NURSING COMMUNICATION [[id number]] Order #: [id number]: 1 STANDING leuprolide 45 mg injection (ELIGARD)Disp: Rfl: NaCl 0.9% iv infusionDisp: Rfl: diphenhydrAMINE 50 mg injection (BENADRYL)Disp: Rfl: hydrocortisone sodium succinate 100 mg injection (Solu-CORTEF)Disp: Rfl: EPINEPHrine 0.3 mg injection - ANAPHYLAXIS (IM only)Disp: Rfl: [facility] NURSING COMMUNICATION [[id number]] Order #: [id number]: 1 STANDING [facility] NURSING COMMUNICATION [[id number]] Order #: [id number]: 1 STANDING sodium chloride 0.9 % (flush) 10-20 mL (BD POSIFLUSH)Disp: Rfl: sodium chloride 0.9 % (flush) 10-20 mL (BD POSIFLUSH)Disp: Rfl: N NURSING COMMUNICATION [[id number]] Order #: [id number]: 1 STANDING [facility] NURSING COMMUNICATION [[id number]] Order #: [id number]: 1 STANDING Prescriptions as of 05/19/2024 - iv contrast (will be provided with radiology test) MRI CSP Inject, intravenously, once for 1 dose. No IV access, insert saline lock prior to the beginning of sedation, infusion, injection of imaging exam. Discontinue saline lock post exam. If Pt. has a central line or IVAD, may access for administration according to line specific nursing protocol. Once exam is complete flush line and de-access according to line specific nursing protocol in the MR contrast administration guidelines link. - Tadalafil (CIALIS) 5 mg tablet Take 1 tablet by mouth once daily. - acetaminophen (TYLENOL EXTRA STRENGTH) 500 mg tablet Take 2 tablets by mouth every 8 hours as needed for pain for up to 40 doses. - pravastatin (PRAVACHOL) 40 mg tablet Take 40 mg by mouth daily at bedtime. - warfarin (COUMADIN) 6 mg tablet Take 1 tablet by mouth every afternoon. - dilTIAZem CD (CARDIZEM CD, CARTIA XT) 120 mg 24 hr capsule TAKE 1 CAPSULE BY MOUTH ONCE DAILY DIRECTED - carvedilol (COREG) 25 mg tablet TAKE 1 TABLET BY MOUTH IN THE MORNING AND AT BEDTIME - lisinopril (ZESTRIL) 10 mg tablet Take 10 mg by mouth once daily. - fluticasone (FLONASE) 50 mcg/actuation nasal spray 1 [place]. Facility-Administered Medications as of 05/19/2024 - leuprolide 45 mg injection (ELIGARD) - NaCl 0.9% iv infusion - diphenhydrAMINE 50 mg injection (BENADRYL) - hydrocortisone sodium succinate 100 mg injection (Solu-CORTEF) - EPINEPHrine 0.3 mg injection - ANAPHYLAXIS (IM only) - sodium chloride 0.9 % (flush) 10-20 mL (BD POSIFLUSH) - sodium chloride 0.9 % (flush) 10-20 mL (BD POSIFLUSH) Problem List As Of Date 05/19/2024 Noted Resolved Chronic ischemic heart disease [I25.9] 01/02/2023 Diagnosed: 11/03/2023 Chronic systolic (congestive) heart failure (HC*01/02/2023 Diagnosed: 11/03/2023 Mixed hyperlipidemia [E78.2] 01/02/2023 Diagnosed: 11/03/2023 Asthma [J45.909] 03/03/2012 Diagnosed: 11/03/2023 Paroxysmal atrial fibrillation (HCC) [I48.0] 03/03/2012 Diagnosed: 11/03/2023 Cardiomyopathy in diseases classified elsewhere*01/02/2023 Diagnosed: 11/03/2023 Benign prostatic hyperplasia with urinary obstr*08/10/2023 Diagnosed: 11/03/2023 Essential hypertension [I10] 03/03/2012 Diagnosed: 11/03/2023 Malignant neoplasm of prostate (HCC) [C61] 08/31/2023 Diagnosed: 11/03/2023 Prostate cancer (HCC) [C61] 11/05/2023 Prescriptions ordered this encounter Disp Refills Start End LEUPROLIDE ACETATE 45 MG (6 MONTH) S* 05/19/2024 05/19/2024 Route: SUBCUTANEOUS SODIUM CHLORIDE 0.9 % INTRAVENOUS SO* 05/19/2024 Cmt: Inform physician Route: INTRAVENOUS DIPHENHYDRAMINE 50 MG/ML INJECTION S* 05/19/2024 Route: INTRAVENOUS HYDROCORTISONE SODIUM SUCCINATE 100 * 05/19/2024 Route: INTRAVENOUS EPINEPHRINE INJECTION 1 MG/ML - ANAP* 05/19/2024 Route: INTRAMUSCULA SODIUM CHLORIDE 0.9 % (FLUSH) INJECT* 05/19/2024 Route: INTRAVENOUS SODIUM CHLORIDE 0.9 % (FLUSH) INJECT* 05/19/2024 Route: INTRAVENOUS Encounter Status:Closed by ROXY ARMSTRONG on 05/19/24 [facility] CNOV Office Visit (RADTSA ) SUKHDEEP GAMINO ([id number]) 1960 M Date Time Provider Department 05/19/24 11:00 AM Mich KAMARA During your visit today, we recorded the following information about you: Temperature Pulse Respiration Blood pressure 97.5 degrees 80/minute 16/minute 138/92 Mich Kamara MD 05/19/2024 11:22 AM Signed Radiation Oncology - Prostate Cancer New Patient/Consult Note PATIENT NAME: Sukhdeep Gamino PATIENT REQUESTING PROVIDER: Katrina Saul CNP OTHER PROVIDERS: Dr. Alek Fatima, Dr. Maoy Bah DIAGNOSIS: 63 year old male with prostate adenocarcinoma, initial PSA 7.9, biopsy Eldridge score 4 + 5 = 9 (grade group 5), clinical stage T2c, N0, M0, status post robotic radical prostatectomy and bilateral pelvic lymph node dissection for 11/05/2023, Christine 8 (4+4) pT3a pN0, with detectable and rising post prostatectomy PSA, PSA 04/26/2024 0.18. HPI: Patient returns after further workup including PSMA PET. PSMA PET 05/16/2024: IMPRESSION: PROSTATE: * No PSMA expressing prostate lesion. CITLALI DISEASE: * No PSMA expressing pelvic lymphadenopathy. METASTATIC DISEASE: * Indeterminate punctate PSMA avid peripancreatic node. ADDITIONAL FINDINGS: * Scattered non-PSMA avid liver lesions, grossly stable from 11/03/2023. * Non-specific bone lesions, including PSMA avid left C4 articular process, which is most likely degenerative, though more prominent than expected. This may be evaluated with cervical spine MR, per clinical discretion. Transcribe Date/Time: May 16 2024 8:28A Dictated by: MAISHA SPIVEY MD This examination was interpreted and the report reviewed and electronically signed by: MAISHA SPIVEY MD on May 16 2024 9:04AM EST Thank you for allowing us to participate in the care of your patient. Should there be any questions regarding this interpretation, please call [phone]. If you are unable to reach us at the number above, please feel free to contact [facility] at [phone]. Results-Findings * * *Final Report* * * DATE OF EXAM: May 12 2024 2:55PM NRN [id number] - NM PET/CT PROSTATE WB / PROCEDURE REASON: Rising PSA following treatment for malignant neoplasm of prostate * * * * Physician Interpretation * * * * RESULT: EXAMINATION: PROSTATE-SPECIFIC MEMBRANE ANTIGEN PET-CT CLINICAL HISTORY: History of prostate cancer with rising PSA being evaluated for recurrence. * Prostate Cancer Grade: Grade Group 5 (Eldridge score 4 + 5) * PSA: 0.18 ng/mL * Previous Therapy: Radical prostatectomy and bilateral pelvic lymph node dissection 11/05/2023 EXAM CATEGORY: Subsequent treatment strategy. TECHNIQUE: Radiopharmaceutical was administered intravenously followed later on by PET imaging from the skull vertex to thighs. Free breathing, low dose CT of the same body region was acquired without IV contrast for attenuation correction and anatomic localization. Unenhanced imaging is limited for the evaluation of some pathology and the acquired CT was not designed to produce diagnostic CT scan quality. Physiologic/non-pathologic uptake in some body regions could confound or obscure some pathology. * CT Dose-Length Product (DLP): 282 mGy*cm * CT Dose Reduction Employed: Yes * Injection site: Right Forearm-Antecubital * Injected activity: 9.3 mCi * Uptake Time: 51 minutes * Radiopharmaceutical: F-18 PSMA (Posluma) COMPARISON: PSMA PET/CT 09/14/2023 CORRELATION: No relevant prior imaging available RESULT: REFERENCES: Uptake by the injected radiopharmaceutical serves as a surrogate marker for prostate-specific membrane antigen (PSMA) expression. All reported standardized uptake values represent maximum SUV (SUVmax) per body weight, unless otherwise specified. SUV Reference Values: * Background Salivary Gland: SUVmax 19 * Blood Pool (Descending Aorta): SUVmax 2.5 * Background Liver: SUVmax 15 Localizer Images: No additional findings. HEAD AND NECK: Head: No radiotracer avid lesion or mass effect in the intracranial compartment. Aerodigestive Tract: No radiotracer avid lesion. Chronic sinusitis with opacification of the maxillary sinuses and right ethmoid air cells. Lymph Nodes: No radiotracer avid lymphadenopathy. Neck Soft Tissues: No radiotracer avid thyroid nodule. CHEST: Lungs AND Pleura: No radiotracer avid mass, nodule, or consolidation. No pleural effusion. Scattered bands of atelectasis/scarring. Calcified granuloma. Additional tiny nodules along the left major fissure are presumed intrapulmonary lymph nodes. Lymph Nodes: No radiotracer avid lymphadenopathy. Scattered mildly enlarged intrathoracic lymph nodes with low radiotracer uptake, likely reactive. Calcified nodes without uptake are presumed from remote granulomatous infection. Mediastinum: No radiotracer avid mass. (more content not included)... Normal [facility] PET/CT PROSTATE WBon 10- MD PET/CT PROSTATE WB * * *Final Report* * * DATE OF EXAM: May 12 2024 2:55PM NRN [id number] - NM PET/CT PROSTATE WB / PROCEDURE REASON: Rising PSA following treatment for malignant neoplasm of prostate * * * * Physician Interpretation * * * * RESULT: EXAMINATION: PROSTATE-SPECIFIC MEMBRANE ANTIGEN PET-CT CLINICAL HISTORY: History of prostate cancer with rising PSA being evaluated for recurrence. * Prostate Cancer Grade: Grade Group 5 (Christine score 4 + 5) * PSA: 0.18 ng/mL * Previous Therapy: Radical prostatectomy and bilateral pelvic lymph node dissection 11/05/2023 EXAM CATEGORY: Subsequent treatment strategy. TECHNIQUE: Radiopharmaceutical was administered intravenously followed later on by PET imaging from the skull vertex to thighs. Free breathing, low dose CT of the same body region was acquired without IV contrast for attenuation correction and anatomic localization. Unenhanced imaging is limited for the evaluation of some pathology and the acquired CT was not designed to produce diagnostic CT scan quality. Physiologic/non-pathologic uptake in some body regions could confound or obscure some pathology. * CT Dose-Length Product (DLP): 282 mGy*cm * CT Dose Reduction Employed: Yes * Injection site: Right Forearm-Antecubital * Injected activity: 9.3 mCi * Uptake Time: 51 minutes * Radiopharmaceutical: F-18 PSMA (Posluma) COMPARISON: PSMA PET/CT 09/14/2023 CORRELATION: No relevant prior imaging available RESULT: REFERENCES: Uptake by the injected radiopharmaceutical serves as a surrogate marker for prostate-specific membrane antigen (PSMA) expression. All reported standardized uptake values represent maximum SUV (SUVmax) per body weight, unless otherwise specified. SUV Reference Values: * Background Salivary Gland: SUVmax 19 * Blood Pool (Descending Aorta): SUVmax 2.5 * Background Liver: SUVmax 15 Localizer Images: No additional findings. HEAD AND NECK: Head: No radiotracer avid lesion or mass effect in the intracranial compartment. Aerodigestive Tract: No radiotracer avid lesion. Chronic sinusitis with opacification of the maxillary sinuses and right ethmoid air cells. Lymph Nodes: No radiotracer avid lymphadenopathy. Neck Soft Tissues: No radiotracer avid thyroid nodule. CHEST: Lungs and Pleura: No radiotracer avid mass, nodule, or consolidation. No pleural effusion. Scattered bands of atelectasis/scarring. Calcified granuloma. Additional tiny nodules along the left major fissure are presumed intrapulmonary lymph nodes. Lymph Nodes: No radiotracer avid lymphadenopathy. Scattered mildly enlarged intrathoracic lymph nodes with low radiotracer uptake, likely reactive. Calcified nodes without uptake are presumed from remote granulomatous infection. Mediastinum: No radiotracer avid mass. Cardiovascular: Blood pool activity. No pericardial effusion. Cardiomegaly. Chest Wall: No radiotracer avid soft tissue lesion. ABDOMEN AND PELVIS: Hepatobiliary: No radiotracer avid lesion. -1.6 cm segment III hypoattenuating nontracer avid lesion, stable from SPECT 11/03/2023. -Probable additional vaguely hypoattenuating lesions within the right hepatic lobe. -Stable hypoattenuating right hepatic dome lesion, presumed benign. Calcified granuloma. Spleen: No radiotracer avid lesion. No splenomegaly. Calcified granulomata. Pancreas: No radiotracer avid lesion. Adrenals: No radiotracer avid nodule. Urinary Tract: Physiologic radiotracer excretion in the urinary tract. No hydronephrosis. GI Tract: No radiotracer avid lesion. No bowel dilation. Moderate left inguinal hernia contains nondilated colon. Peritoneum: No radiotracer avid lesion. No ascites. Lymph Nodes: * Abdomen (including common iliac): Indeterminate punctate peripancreatic node posterior to the uncinate process (Max SUV 4.1). * Pelvis (below common iliac): No radiotracer avid lymphadenopathy. Vasculature: Blood pool activity. Vascular calcifications without an abdominal aortic aneurysm. Prostate and Seminal Vesicles: No radiotracer avid lesion in the prostatectomy bed. Pelvis Soft Tissues: No radiotracer avid lesion. MUSCULOSKELETAL: Bones: Scattered nonspecific lesions, as described: -Focal uptake along the left C4 articular process (Max SUV 5.4), new from 09/14/2023, but most likely to represent degenerative changes. -Right hip arthroplasty. Focal low level hypermetabolism along the superior greater trochanter is presumed reactive. -Stable sclerotic posterior right fifth rib lesion without PSMA uptake. -Osseous degenerative changes with additional low level PSMA uptake which is presumed reactive. Soft Tissues: No radiotracer avid lesion. IMPRESSION: PROSTATE: * No PSMA expressing prostate lesion. CITLALI DISEASE: * No PSMA expressing pelvic lymphadenopathy. METASTATIC DISEASE: * Indeterminate punctate PSMA avid peripancreatic node. ADDITIONAL FINDINGS: * Scattered non- (more content not included)... Normal [facility] CNOVon 04-28-2024 CNOV Office Visit (RADTSA ) SUKHDEEP GAMINO ([id number]) 1960 M Date Time Provider Department 04/28/24 10:00 AM Mich KAMARA During your visit today, we recorded the following information about you: Temperature Pulse Respiration Blood pressure 98.2 degrees 81/minute 16/minute 146/87 Weight 86.4 kg Divina Braswell LPN 04/28/2024 10:20 AM Signed AUA= 2 Pacemaker/Defibrillator?N Previous Cancer(s)?N Previous Radiation?N Lupus/Scleroderma?N On body monitoring device?N Mich Kamara MD 05/04/2024 2:07 PM Signed Radiation Oncology - Prostate Cancer New Patient/Consult Note PATIENT NAME: Sukhdeep Gamino PATIENT REQUESTING PROVIDER: Katrina Saul CNP OTHER PROVIDERS: Dr. Alek Fatima, Dr. Mayo Bah DIAGNOSIS: 63 year old male with prostate adenocarcinoma, initial PSA 7.9, biopsy Christine score 4 + 5 = 9 (grade group 5), clinical stage T2c, N0, M0, status post robotic radical prostatectomy and bilateral pelvic lymph node dissection for 11/05/2023, Christine 8 (4+4) pT3a pN0, with detectable and rising post prostatectomy PSA, PSA 04/26/2024 0.18. HPI: 63 year old male with prostate adenocarcinoma who presents for an opinion regarding the role of radiation therapy in the management of the patient's disease. Final recommendations will be communicated back to the requesting physician by way of the shared medical record, or letter to requesting physician via US mail. The patient was diagnosed with prostate cancer and comes in today to discuss treatment options. Patient presented with an elevated PSA. PSA 07/29/2023 was 7.9, 12.9% free. Patient underwent transrectal ultrasound-guided biopsy on 08/25/2023, with finding of Eldridge grade group 5 (4+5) from the left lateral mid and left mid, other biopsies from the left aspect of the gland showing grade group 3 and 4. All right-sided biopsies negative He underwent further staging including: Bone scan 09/02/2023: No definite evidence of metastatic disease. PSMA PET 09/14/2023: Abnormal activity left aspect peripheral zone prostate consistent with prostate cancer. No evidence of local or distant metastatic disease. He underwent robotic assisted radical prostatectomy and bilateral pelvic lymph node dissection on 11/05/2023 Pathology demonstrating: FINAL DIAGNOSIS A. Prostate, radical prostatectomy: - Prostatic adenocarcinoma, Christine score 4+4=8 with tertiary pattern 5, Grade Group 4, with extraprostatic extension of neoplasm. - Margins of excision are free of neoplasm. A. Seminal vesicles, right and left, excision: - Negative for neoplasm. B. Bilateral pelvic lymph nodes, excision: - Negative for neoplasm, twenty-three lymph nodes. Radical Prostatectomy Morphology Summary Unfavorable histology: Present (Greater than 50%) Large cribriform pattern 4: Present Intraductal carcinoma: Absent BIANKA/gautam 11/10/2023 Block for additional Biomarkers/Molecular studies A20 Synoptic Report PROSTATE GLAND: Radical Prostatectomy 8th Edition - Protocol posted: 3PROSTATE GLAND: RESECTION - All Specimens SPECIMEN Procedure Radical prostatectomy Prostate Size Prostate Weight (Grams) 38.35 g Prostate Greatest Dimension (Centimeters) 5.2 cm Additional Prostate Dimension (Centimeters) 5.1 cm 3.5 cm TUMOR Histologic Type Acinar adenocarcinoma, conventional (usual) Histologic Grade Grade Grade group 4 (Christine Score 4 + 4 = 8) Intraductal Carcinoma (IDC) Not identified Cribriform Glands Present Treatment Effect Not identified TUMOR QUANTITATION Estimated Percentage of Prostate Involved by Tumor 21 - 30% Extraprostatic Extension (EPE) Present, nonfocal Location of Extraprostatic Extension Left posterior Urinary Bladder Neck Invasion Not identified Seminal Vesicle Invasion Not identified Lymphatic and / or Vascular Invasion Not Identified MARGINS Margin Status All margins negative for invasive carcinoma REGIONAL LYMPH NODES Regional Lymph Node Status All regional lymph nodes negative for tumor Number of Lymph Nodes Examined 23 pTNM CLASSIFICATION (AJCC 8th Edition) Reporting of pT, pN, and (when applicable) pM categories is based on information available to the pathologist at the time the report is issued. As per the AJCC (Chapter 1, 8th Ed.) it is the managing physician?s responsibility to establish the final pathologic stage based upon all pertinent information, including but potentially not limited to this pathology report. pT Category pT3a pN Category pN0 . Patient did very well after prostatectomy. Continence improved in a fairly short interval currently only occasional stress urinary episodes wearing 1 pad per day with minimal incontinence notable. Denies dysuria. Having issues with erectile dysfunction using tad (more content not included)... [facility] (DAVIDAP) SUKHDEEP GAMINO ([id number]) 1960 M Date Time Provider Department 04/28/24 Mich KAMARA During your visit today, we recorded the following information about you: Misty Sher HUC 04/28/2024 11:19 AM Signed This form is used for MAIN CAMPUS APPOINTMENTS ONLY. Is this request for a Main [place] PET scan appointment? Yes: Contract Sheltered Workshop Supervisor: OSWALDO Ramirez Requesting Person (Last Name, First Name): Sherif Area Code + Phone/Pager: [phone] Who do we call to schedule this appointment? Other Contact: PSMA PET in [place], Route to [facility] to schedule. Requesting Staff Sherif Area Code + Phone/Pager: [phone] PET Orders (A delay in scheduling will result if the orders are not present at time of review): Internal ADDITIONAL ACTION MAY BE REQUIRED IF PATIENTS OON INSURANCE OR SELF PAY COVERAGE HAS NOT BEEN CLEARED FOR REQUESTED APPOINTMENT. Scheduling: SUKHJINDER: As soon as insurance will allow What account will this PET appointment be linked to? P/F Type of PET: Oncology: Are there additional diagnostic CT scans required to be done at time of PET scan? No Is the request for a PET MR ? No What account will diagnostic testing appointment be linked to? P/F Will the patient need anesthesia? NO Send requests to P COORD REVIEW Tameka Gay RN 04/28/2024 4:08 PM Signed PSMA Comments for Wiring Inspector: Joseph Will the patient need anesthesia: No Primary Insurance: Medicare B Effective Date: 04-26-24 Date of Initial PET: N/A Cancer Type: Prostate Cancer Date of Subsequent PET scan: Pend scheduling S1 ABN Required: No Diagnosis: Rising PSA following treatment for malignant neoplasm of prostate [R97.21] Initial/Subsequent: Subsequent Pathology: 11-05-23 Prostate, radical prostatectomy: - Prostatic adenocarcinoma, Eldridge score 4+4=8 Grade Group 4 Labs: 04-26-24 PSA 0.18 03-31-24 PSA 0.12 12-25-23 PSA 0.03 Clinical Notes Reviewed: 04-28-24 Rad Onc Date of last: Prostatectomy 11-05-23 Additional Information/Imaging: Flotufolastat F18 09-27-23 OSH Initial:No Subsequent: Yes. Date of Last Image: 09-27-23 OSH Scan: Positive Isotope used: F18 Flotufolastat Positive Scan Schedule as place of last (DOS) or Region Negative Scan Schedule at ANY PSMA site requested Isotope used: Region F-18 flotufolastat,18F flotufolastat Posluma GA68 PSMA PET 29652/LOCAMETZ (Gallium GA-68 Gozetotide) (6 mCi) A9800 - Posluma (Flotufolastat F18) (8mCi), [id number] - Region Auth#: Date Range: NPI: Member ID: Medicare Site/Contact: Case/Ref#: Notes: Route to or Requested Scheduling Pool: P PET VAULT INSTALLER Naomi BROWER CLERICAL POOL([place]), Naomi RUIZ HISTOLOGY MANAGER Allergies As of Date: 04/28/2024 Noted Allergy Reaction CIPROFLOXACIN 11/12/2023 4 - Hives Date Reviewed: 04/28/2024 Reviewed by: Divina Braswell LPN - Fully Assessed Reason for Visit: Nm Pet Request [[id number]] Prescriptions as of 05/17/2024 - Tadalafil (CIALIS) 5 mg tablet Take 1 tablet by mouth once daily. - acetaminophen (TYLENOL EXTRA STRENGTH) 500 mg tablet Take 2 tablets by mouth every 8 hours as needed for pain for up to 40 doses. - pravastatin (PRAVACHOL) 40 mg tablet Take 40 mg by mouth daily at bedtime. - warfarin (COUMADIN) 6 mg tablet Take 1 tablet by mouth every afternoon. - dilTIAZem CD (CARDIZEM CD, CARTIA XT) 120 mg 24 hr capsule TAKE 1 CAPSULE BY MOUTH ONCE DAILY DIRECTED - carvedilol (COREG) 25 mg tablet TAKE 1 TABLET BY MOUTH IN THE MORNING AND AT BEDTIME - lisinopril (ZESTRIL) 10 mg tablet Take 10 mg by mouth once daily. - fluticasone (FLONASE) 50 mcg/actuation nasal spray 1 [place]. Problem List As Of Date 04/28/2024 Noted Resolved Chronic ischemic heart disease [I25.9] 01/02/2023 Diagnosed: 11/03/2023 Chronic systolic (congestive) heart failure (HC*01/02/2023 Diagnosed: 11/03/2023 Mixed hyperlipidemia [E78.2] 01/02/2023 Diagnosed: 11/03/2023 Asthma [J45.909] 03/03/2012 Diagnosed: 11/03/2023 Paroxysmal atrial fibrillation (HCC) [I48.0] 03/03/2012 Diagnosed: 11/03/2023 Cardiomyopathy in diseases classified elsewhere*01/02/2023 Diagnosed: 11/03/2023 Benign prostatic hyperplasia with urinary obstr*08/10/2023 Diagnosed: 11/03/2023 Essential hypertension [I10] 03/03/2012 Diagnosed: 11/03/2023 Malignant neoplasm of prostate (HCC) [C61] 08/31/2023 Diagnosed: 11/03/2023 Prostate cancer (HCC) [C61] 11/05/2023 Encounter Status:Closed by MISTY SHER on 05/17/24 [facility] Telephone (RADTSA) SUKHDEEP GAMINO ([id number]) 1960 Date Time Provider Department 04/28/24 Mich KAMARA During your visit today, we recorded the following information about you: Divina Braswell LPN 04/28/2024 4:22 PM Signed Pharmacist: Will you please enter Eligarcorrine 45mg orders and route to Dr. Kamara? Eligard and SIM to be scheduled after PSMA PET which is pending insurance approval. Thanks Divina Braswell RN Allergies As of Date: 04/28/2024 Noted Allergy Reaction CIPROFLOXACIN 11/12/2023 4 - Hives Date Reviewed: 04/28/2024 Reviewed by: Divina Braswell LPN - Fully Assessed Reason for Visit: Orders [681] Prescriptions as of 05/04/2024 - Tadalafil (CIALIS) 5 mg tablet Take 1 tablet by mouth once daily. - acetaminophen (TYLENOL EXTRA STRENGTH) 500 mg tablet Take 2 tablets by mouth every 8 hours as needed for pain for up to 40 doses. - pravastatin (PRAVACHOL) 40 mg tablet Take 40 mg by mouth daily at bedtime. - warfarin (COUMADIN) 6 mg tablet Take 1 tablet by mouth every afternoon. - dilTIAZem CD (CARDIZEM CD, CARTIA XT) 120 mg 24 hr capsule TAKE 1 CAPSULE BY MOUTH ONCE DAILY DIRECTED - carvedilol (COREG) 25 mg tablet TAKE 1 TABLET BY MOUTH IN THE MORNING AND AT BEDTIME - lisinopril (ZESTRIL) 10 mg tablet Take 10 mg by mouth once daily. - fluticasone (FLONASE) 50 mcg/actuation nasal spray 1 [place]. Problem List As Of Date 04/28/2024 Noted Resolved Chronic ischemic heart disease [I25.9] 01/02/2023 Diagnosed: 11/03/2023 Chronic systolic (congestive) heart failure (HC*01/02/2023 Diagnosed: 11/03/2023 Mixed hyperlipidemia [E78.2] 01/02/2023 Diagnosed: 11/03/2023 Asthma [J45.909] 03/03/2012 Diagnosed: 11/03/2023 Paroxysmal atrial fibrillation (HCC) [I48.0] 03/03/2012 Diagnosed: 11/03/2023 Cardiomyopathy in diseases classified elsewhere*01/02/2023 Diagnosed: 11/03/2023 Benign prostatic hyperplasia with urinary obstr*08/10/2023 Diagnosed: 11/03/2023 Essential hypertension [I10] 03/03/2012 Diagnosed: 11/03/2023 Malignant neoplasm of prostate (HCC) [C61] 08/31/2023 Diagnosed: 11/03/2023 Prostate cancer (HCC) [C61] 11/05/2023 Encounter Status:Closed by CHARLENE REYNOSO on 05/04/24 Normal [facility] PSA SerPl-mCncon 04-26-2024 Prostate specific Ag [Mass/Vol] 0.18 ng/mL Normal <2.60 [facility] Comment on above: Order Comment: Speci men Type: BLOOD SPECIMENOrdering Facility: [facility] Address: [address] [place] [address] Result Comment: Tota l PSA test methodology used is the Electrochemiluminescence Immunoassay by [employer]. Total PSA values by differing methodologies cannot be interchanged. Performed By: #### 2 [id number] ####[facility] LABCLIA [id number] [address] STATES OF [facility] PSA SerPl-mCncon 03-31-2024 Prostate specific Ag [Mass/Vol] 0.12 ng/mL Normal <2.60 [facility] Comment on above: Order Comment: Speci men Type: BLOOD SPECIMENOrdering Facility: [facility] Address: [address] [place] [address] Result Comment: Tota l PSA test methodology used is the Electrochemiluminescence Immunoassay by [employer]. Total PSA values by differing methodologies cannot be interchanged. Performed By: #### 2 857-1 ####[facility] LABCLIA [id number] [place] [id number] [place] Office Visiton 12-29-2023 Follow-up visit [id number] Saldana 1960 M Date Provider Department Center 12/29/2023 [id number], ADRIANA CARD [facility] No family history on file Level of Service:81651 DC OFFICE/OUTPATIENT ESTABLISHED LOW MDM 20 MIN Normal [facility] Orders Onlyon 12-25-2023 Orders Only [id number] Saldana 1960 M Date Provider Department Center 12/25/2023 [id number], HISTORICAL BH CARD [facility] No family history on file Normal [facility] PSA SerPl-mCncon 12-25-2023 Prostate specific Ag [Mass/Vol] 0.03 ng/mL Normal <2.60 [facility] Comment on above: Order Comment: Speci men Type: BLOOD SPECIMENOrdering Facility: [facility] Address: [address] [place] [address] Result Comment: Maykel mera PSA test methodology used is the Electrochemiluminescence Immunoassay by [employer]. Total PSA values by differing methodologies cannot be interchanged. Performed By: #### 2 857-1 ####[facility] LABCLIA [id number] [place] [id number] [facility] [place] 11-16-2023 CNPN Telephone (GLQ) SUKHDEEP GAMINO ([id number]) 1960 Date Time Provider Department 11/16/23 CASI ROCHA GLQ During your visit today, we recorded the following information about you: Casi Rocha, RN 11/16/2023 3:51 PM Signed Returned call to Mr. Gamino regarding incontinence. Given directions on how to properly do kegel exercises and how many. Handout emailed to him. He will call the office with any further questions or concerns. Casi Rocha RN, BSN Triage Nurse Department of Urology [facility] Allergies As of Date: 11/16/2023 Noted Allergy Reaction CIPROFLOXACIN 11/12/2023 4 - Hives Date Reviewed: 11/05/2023 Reviewed by: Shahriar Alexis RN - Fully Assessed Reason for Visit: Returning Patient's Call [408] Prescriptions as of 11/16/2023 - cephALEXin (KEFLEX) 500 mg capsule Take 1 capsule by mouth two times a day. - docusate sodium (COLACE) 100 mg capsule Take 1 capsule by mouth two times a day. - acetaminophen (TYLENOL EXTRA STRENGTH) 500 mg tablet Take 2 tablets by mouth every 8 hours as needed for pain for up to 40 doses. - oxybutynin XL (DITROPAN XL) 5 mg 24 hr tablet Take 1 tablet by mouth once daily as needed (bladder spasms) for up to 6 days. Please stop taking at least ONE DAY prior to padgett removal - aspirin, enteric coated (ASPIRIN, ENTERIC COATED) 81 mg EC tablet in the morning. - pravastatin (PRAVACHOL) 40 mg tablet Take 40 mg by mouth daily at bedtime. - warfarin (COUMADIN) 6 mg tablet Take 1 tablet by mouth every afternoon. - dilTIAZem CD (CARDIZEM CD, CARTIA XT) 120 mg 24 hr capsule TAKE 1 CAPSULE BY MOUTH ONCE DAILY DIRECTED - carvedilol (COREG) 25 mg tablet TAKE 1 TABLET BY MOUTH IN THE MORNING AND AT BEDTIME - lisinopril (ZESTRIL) 10 mg tablet Take 10 mg by mouth once daily. - tamsulosin (FLOMAX) 0.4 mg Take 1 capsule by mouth every afternoon. - fluticasone (FLONASE) 50 mcg/actuation nasal spray 1 [place]. - bicalutamide (CASODEX) 50 mg tablet Take 1 tablet by mouth once daily. Problem List As Of Date 11/16/2023 Noted Resolved Chronic ischemic heart disease [I25.9] 01/02/2023 Chronic systolic (congestive) heart failure (HC*01/02/2023 Mixed hyperlipidemia [E78.2] 01/02/2023 Asthma [J45.909] 03/03/2012 Paroxysmal atrial fibrillation (HCC) [I48.0] 03/03/2012 Cardiomyopathy in diseases classified elsewhere*01/02/2023 Benign prostatic hyperplasia with urinary obstr*08/10/2023 Essential hypertension [I10] 03/03/2012 Malignant neoplasm of prostate (HCC) [C61] 08/31/2023 Prostate cancer (HCC) [C61] 11/05/2023 Encounter Status:Closed by CASI ROCHA on 11/16/23 [facility] [place] [facility] SU[facility]AMINO ([id number]) 1960 M Date Time Provider Department 11/12/23 CASI ROCHA GLQ During your visit today, we recorded the following information about you: Casi Rocha RN 11/12/2023 11:51 AM Signed Spoke to Mr. Gamino. He has taken 3 doses of cipro. He has developed hives on his back, below his shoulder blades to about his waist. It does itch. He has no breathing issues or SOB. He has some generic zyrtec at home that he will take for itching. Message sent to Dr. Bah's team regarding continuing cipro. Casi Rocha RN, BSN Triage Nurse Department of Urology [facility] Allergies As of Date: 11/12/2023 (No Known Allergies) Date Reviewed: 11/05/2023 Reviewed by: Shahriar Alexis RN - Fully Assessed Reason for Visit: Returning Patient's Call [408] Prescriptions as of 11/12/2023 - docusate sodium (COLACE) 100 mg capsule Take 1 capsule by mouth two times a day. - acetaminophen (TYLENOL EXTRA STRENGTH) 500 mg tablet Take 2 tablets by mouth every 8 hours as needed for pain for up to 40 doses. - oxybutynin XL (DITROPAN XL) 5 mg 24 hr tablet Take 1 tablet by mouth once daily as needed (bladder spasms) for up to 6 days. Please stop taking at least ONE DAY prior to padgett removal - apixaban (ELIQUIS) 2.5 mg tab(s) Take 1 tablet by mouth two times a day for 7 days. - aspirin, enteric coated (ASPIRIN, ENTERIC COATED) 81 mg EC tablet in the morning. - pravastatin (PRAVACHOL) 40 mg tablet Take 40 mg by mouth daily at bedtime. - warfarin (COUMADIN) 6 mg tablet Take 1 tablet by mouth every afternoon. - dilTIAZem CD (CARDIZEM CD, CARTIA XT) 120 mg 24 hr capsule TAKE 1 CAPSULE BY MOUTH ONCE DAILY DIRECTED - carvedilol (COREG) 25 mg tablet TAKE 1 TABLET BY MOUTH IN THE MORNING AND AT BEDTIME - lisinopril (ZESTRIL) 10 mg tablet Take 10 mg by mouth once daily. - tamsulosin (FLOMAX) 0.4 mg Take 1 capsule by mouth every afternoon. - fluticasone (FLONASE) 50 mcg/actuation nasal spray 1 [place]. - bicalutamide (CASODEX) 50 mg tablet Take 1 tablet by mouth once daily. Facility-Administered Medications as of 11/12/2023 - regadenoson 0.4 mg injection (LEXISCAN) - aminophylline 50-250 mg injection - metoprolol 2.5-5 mg injection (LOPRESSOR) - perflutren lipid microspheres 1.3 mL in NaCl (PF) 0.9% 10 mL injection (DEFINITY) - sodium chloride 0.9 % (flush) 10 mL (BD POSIFLUSH) Problem List As Of Date 11/12/2023 Noted Resolved Chronic ischemic heart disease [I25.9] 01/02/2023 Chronic systolic (congestive) heart failure (HC*01/02/2023 Mixed hyperlipidemia [E78.2] 01/02/2023 Asthma [J45.909] 03/03/2012 Paroxysmal atrial fibrillation (HCC) [I48.0] 03/03/2012 Cardiomyopathy in diseases classified elsewhere*01/02/2023 Benign prostatic hyperplasia with urinary obstr*08/10/2023 Essential hypertension [I10] 03/03/2012 Malignant neoplasm of prostate (HCC) [C61] 08/31/2023 Prostate cancer (HCC) [C61] 11/05/2023 Encounter Status:Closed by CASI ROCHA on 11/12/23 Normal [facility] Telephone (GLQ) SUKHDEEP GAMINO ([id number]) 1960 M Date Time Provider Department 11/12/23 CASI ROCHA GLQ During your visit today, we recorded the following information about you: Casi Rocha, RN 11/12/2023 1:22 PM Signed Spoke to Mr. Gamino. Advised to stop cipro. Keflex has been called in for him. He can take antihistamine as advised. Patient verbalized understanding. All questions answered. Casi Rocha RN, BSN Triage Nurse Department of Urology [facility] Allergies As of Date: 11/12/2023 Noted Allergy Reaction CIPROFLOXACIN 11/12/2023 4 - Hives Date Reviewed: 11/05/2023 Reviewed by: Shahriar Alexis, BOY - Fully Assessed Reason for Visit: Follow Up Phone Call [1195] Prescriptions as of 11/12/2023 - cephALEXin (KEFLEX) 500 mg capsule Take 1 capsule by mouth two times a day. - docusate sodium (COLACE) 100 mg capsule Take 1 capsule by mouth two times a day. - acetaminophen (TYLENOL EXTRA STRENGTH) 500 mg tablet Take 2 tablets by mouth every 8 hours as needed for pain for up to 40 doses. - oxybutynin XL (DITROPAN XL) 5 mg 24 hr tablet Take 1 tablet by mouth once daily as needed (bladder spasms) for up to 6 days. Please stop taking at least ONE DAY prior to padgett removal - apixaban (ELIQUIS) 2.5 mg tab(s) Take 1 tablet by mouth two times a day for 7 days. - aspirin, enteric coated (ASPIRIN, ENTERIC COATED) 81 mg EC tablet in the morning. - pravastatin (PRAVACHOL) 40 mg tablet Take 40 mg by mouth daily at bedtime. - warfarin (COUMADIN) 6 mg tablet Take 1 tablet by mouth every afternoon. - dilTIAZem CD (CARDIZEM CD, CARTIA XT) 120 mg 24 hr capsule TAKE 1 CAPSULE BY MOUTH ONCE DAILY DIRECTED - carvedilol (COREG) 25 mg tablet TAKE 1 TABLET BY MOUTH IN THE MORNING AND AT BEDTIME - lisinopril (ZESTRIL) 10 mg tablet Take 10 mg by mouth once daily. - tamsulosin (FLOMAX) 0.4 mg Take 1 capsule by mouth every afternoon. - fluticasone (FLONASE) 50 mcg/actuation nasal spray 1 [place]. - bicalutamide (CASODEX) 50 mg tablet Take 1 tablet by mouth once daily. Facility-Administered Medications as of 11/12/2023 - regadenoson 0.4 mg injection (LEXISCAN) - aminophylline 50-250 mg injection - metoprolol 2.5-5 mg injection (LOPRESSOR) - perflutren lipid microspheres 1.3 mL in NaCl (PF) 0.9% 10 mL injection (DEFINITY) - sodium chloride 0.9 % (flush) 10 mL (BD POSIFLUSH) Problem List As Of Date 11/12/2023 Noted Resolved Chronic ischemic heart disease [I25.9] 01/02/2023 Chronic systolic (congestive) heart failure (HC*01/02/2023 Mixed hyperlipidemia [E78.2] 01/02/2023 Asthma [J45.909] 03/03/2012 Paroxysmal atrial fibrillation (HCC) [I48.0] 03/03/2012 Cardiomyopathy in diseases classified elsewhere*01/02/2023 Benign prostatic hyperplasia with urinary obstr*08/10/2023 Essential hypertension [I10] 03/03/2012 Malignant neoplasm of prostate (HCC) [C61] 08/31/2023 Prostate cancer (HCC) [C61] 11/05/2023 Encounter Status:Closed by CASI ROCHA on 11/12/23 [facility] [place] 11-10-2023 [place] Telephone (GLQ) SUKDHEEP GAMINO ([id number]) 1960 M Date Time Provider Department 11/10/23 CASI ROCHA GLQ During your visit today, we recorded the following information about you: Casi Rocha, RN 11/10/2023 4:18 PM Signed Notified patient that per Dr. Bah, it is okay for him to take his short course of cipro for his padgett catheter. Pt verbalized understanding. All questions answered. Casi Rocha RN, BSN Triage Nurse Department of Urology [facility] Allergies As of Date: 11/10/2023 (No Known Allergies) Date Reviewed: 11/05/2023 Reviewed by: Shahriar Alexis, BOY - Fully Assessed Prescriptions as of 11/10/2023 - docusate sodium (COLACE) 100 mg capsule Take 1 capsule by mouth two times a day. - acetaminophen (TYLENOL EXTRA STRENGTH) 500 mg tablet Take 2 tablets by mouth every 8 hours as needed for pain for up to 40 doses. - oxybutynin XL (DITROPAN XL) 5 mg 24 hr tablet Take 1 tablet by mouth once daily as needed (bladder spasms) for up to 6 days. Please stop taking at least ONE DAY prior to padgett removal - apixaban (ELIQUIS) 2.5 mg tab(s) Take 1 tablet by mouth two times a day for 7 days. - aspirin, enteric coated (ASPIRIN, ENTERIC COATED) 81 mg EC tablet in the morning. - pravastatin (PRAVACHOL) 40 mg tablet Take 40 mg by mouth daily at bedtime. - warfarin (COUMADIN) 6 mg tablet Take 1 tablet by mouth every afternoon. - dilTIAZem CD (CARDIZEM CD, CARTIA XT) 120 mg 24 hr capsule TAKE 1 CAPSULE BY MOUTH ONCE DAILY DIRECTED - carvedilol (COREG) 25 mg tablet TAKE 1 TABLET BY MOUTH IN THE MORNING AND AT BEDTIME - lisinopril (ZESTRIL) 10 mg tablet Take 10 mg by mouth once daily. - tamsulosin (FLOMAX) 0.4 mg Take 1 capsule by mouth every afternoon. - fluticasone (FLONASE) 50 mcg/actuation nasal spray 1 [place]. - bicalutamide (CASODEX) 50 mg tablet Take 1 tablet by mouth once daily. Facility-Administered Medications as of 11/10/2023 - regadenoson 0.4 mg injection (LEXISCAN) - aminophylline 50-250 mg injection - metoprolol 2.5-5 mg injection (LOPRESSOR) - perflutren lipid microspheres 1.3 mL in NaCl (PF) 0.9% 10 mL injection (DEFINITY) - sodium chloride 0.9 % (flush) 10 mL (BD POSIFLUSH) Problem List As Of Date 11/10/2023 Noted Resolved Chronic ischemic heart disease [I25.9] 01/02/2023 Chronic systolic (congestive) heart failure (HC*01/02/2023 Mixed hyperlipidemia [E78.2] 01/02/2023 Asthma [J45.909] 03/03/2012 Paroxysmal atrial fibrillation (HCC) [I48.0] 03/03/2012 Cardiomyopathy in diseases classified elsewhere*01/02/2023 Benign prostatic hyperplasia with urinary obstr*08/10/2023 Essential hypertension [I10] 03/03/2012 Malignant neoplasm of prostate (HCC) [C61] 08/31/2023 Prostate cancer (HCC) [C61] 11/05/2023 Encounter Status:Closed by CASI ROCHA on 11/10/23 Normal [facility] Basic metabolic 2000 panelon 11-06-2023 Anion gap [Moles/Vol] 12 mmol/L Normal 9-18 [facility] Comment on above: Order Comment: Speci men Type: BLOOD SPECIMENOrdering Facility: [facility] Address: [address] [place] [address] Performed By: #### 2 4321-2, 2777-1, 73260-1 ####[facility] LABCLIA [id number] [place] [address] [place] Calcium [Mass/Vol] 8.8 mg/dL Normal 8.5-10.2 [facility] Comment on above: Order Comment: Speci men Type: BLOOD SPECIMENOrdering Facility: [facility] Address: [address] [place] [id number] Performed By: #### 2 4321-2, 277-, ####[facility] LABCLIA [id number] [address] [address] [place] Chloride [Moles/Vol] 103 mmol/L Normal 97-105 [facility] Comment on above: Order Comment: Speci men Type: BLOOD SPECIMENOrdering Facility: [facility] Address: [address] [place] [address] Performed By: #### 2 4321-2, 277-, ####[facility] LABIA [id number] [place] [id number] [place] CO2 [Moles/Vol] 21 mmol/L Low 22-30 [facility] Comment on above: Order Comment: Speci men Type: BLOOD SPECIMENOrdering Facility: [facility] Address: [address] [place] [address] Performed By: #### 2 4321-2, 27701-31, ####[facility] LABIA [id number] [place] [id number] [place] Creatinine [Mass/Vol] 1.23 mg/dL High 0.73-1.22 [facility] Comment on above: Order Comment: Speci men Type: BLOOD SPECIMENOrdering Facility: [facility] Address: [address] [place] [address] Performed By: #### 2 4321-2, 27701-31, ####[facility] LABIA [id number] [place] [id number] [place] Creatinine and Glomerular filtration rate.predicted panel (S/P/Bld) 66 mL/min/1.73m??? Normal >=60 [facility] Comment on above: Order Comment: Speci men Type: BLOOD SPECIMENOrdering Facility: [facility] Address: [address], [place] [address] Result Comment: Jamila mated Glomerular Filtration Rate (eGFR) is calculated using the 2020 CKD-EPI creatinine equation. This equation utilizes serum creatinine, sex, and age as parameters. The creatinine assay has traceable calibration to isotope dilution-mass spectrometry. Refer to KDIGO guidelines for clinical interpretation. In patients with unstable renal function, e.g. those with acute kidney injury, the eGFR may not accurately reflect actual GFR. Performed By: #### 2 4321-2, 2777-, ####[facility] LABCLIA [id number] [address] [address] [place] Glucose [Mass/Vol] 190 mg/dL High 74-99 [facility] Comment on above: Order Comment: Penelope taylor Type: BLOOD SPECIMENOrdering Facility: [facility] Address: [address] [place] [address] Result Comment: The [place] [employer] (ADA) provides guidance for cutoff values for fasting glucose and random glucose. The ADA defines fasting as no caloric intake for at least 8 hours. Fasting plasma glucose results between 100 to 125 mg/dL indicate increased risk for diabetes (prediabetes). Fasting plasma glucose results greater than or equal to 126 mg/dL meet the criteria for diagnosis of diabetes. In the absence of unequivocal hyperglycemia, results should be confirmed by repeat testing. In a patient with classic symptoms of hyperglycemia or hyperglycemic crisis, random plasma glucose results greater than or equal to 200 mg/dL meet the criteria for diagnosis of diabetes. Reference: Standards of Medical Care in Diabetes 2016, [place] [employer]. Diabetes Care. 2016.39(Suppl 1). Performed By: #### 2 4321-2, 27701-31, ####[facility] LABIA [id number] [address] [address] [place] Potassium [Moles/Vol] 4.4 mmol/L Normal 3.7-5.1 [facility] Comment on above: Order Comment: Penelope taylor Type: BLOOD SPECIMENOrdering Facility: [facility] Address: [address] [place] [address] Performed By: #### 2 4321-2, 27701-31, ####[facility] LABCLIA [id number] [place] [address] [place] Sodium [Moles/Vol] 136 mmol/L Normal 136-144 [facility] Comment on above: Order Comment: Speci men Type: BLOOD SPECIMENOrdering Facility: [facility] Address: [address] [place] [address] Performed By: #### 2 4321-2, 2777-1, ####[facility] LABIA [id number] [place] [address] [place] Urea nitrogen [Mass/Vol] 19 mg/dL Normal 9-24 [facility] Comment on above: Order Comment: Speci men Type: BLOOD SPECIMENOrdering Facility: [facility] Address: [address] [place] [address] Performed By: #### 2 4321-2, 277-, ####[facility] LABIA [id number] [place] [address] [place] CBC W Auto Differential pane l (Bld)on 11-06-2023 Basophils (Bld) [#/Vol] 10*3/uL Normal <0.11 [facility] Comment on above: Order Comment: Speci men Type: BLOOD SPECIMENOrdering Facility: [facility] Address: [address] [place] [address] Performed By: #### 5 7021-8 ####[facility] LABIA [id number] [place] [address] [place] Basophils/100 WBC (Bld) 0.1 % Normal [facility] Comment on above: Order Comment: Speci men Type: BLOOD SPECIMENOrdering Facility: [facility] Address: [address] [place] [address] Performed By: #### 5 7021-8 ####[facility] LABIA [id number] [place] [address] [place] Differential cell count method Nom (Bld) Auto Normal [facility] Comment on above: Order Comment: Speci men Type: BLOOD SPECIMENOrdering Facility: [facility] Address: [address] [place] [address] Performed By: #### 5 7021-8 ####[facility] LABCLIA [id number] [place] [address] [place] Eosinophils (Bld) [#/Vol] 10*3/uL Normal <0.46 [facility] Comment on above: Order Comment: Speci men Type: BLOOD SPECIMENOrdering Facility: [facility] Address: [address] [place] [address] Performed By: #### 5 7021-8 ####[facility] LABCLIA [id number] [place] [address] [place] Eosinophils/100 WBC (Bld) 0.0 % Normal [facility] Comment on above: Order Comment: Speci men Type: BLOOD SPECIMENOrdering Facility: [facility] Address: [address] [place] [address] Performed By: #### 5 7021-8 ####[facility] LABCLIA [id number] [place] [address] [place] Erythrocyte distribution width (RBC) [Ratio] 13.1 % Normal 11.5-15.0 [facility] Comment on above: Order Comment: Speci men Type: BLOOD SPECIMENOrdering Facility: [facility] Address: [address] [place] [address] Performed By: #### 5 7021-8 ####[facility] LABCLIA [id number] [place] [address] [place] Hematocrit (Bld) [Volume fraction] 34.5 % Low 39.0-51.0 [facility] Comment on above: Order Comment: Speci men Type: BLOOD SPECIMENOrdering Facility: [facility] Address: [address] [place] [address] Performed By: #### 5 7021-8 ####[facility] LABCLIA [id number] [place] [address] [place] Hemoglobin (Bld) [Mass/Vol] 11.7 g/dL Low 13.0-17.0 [facility] Comment on above: Order Comment: Speci men Type: BLOOD SPECIMENOrdering Facility: [facility] Address: [address] [place] [address] Performed By: #### 5 7021-8 ####[facility] LABCLIA [id number] [place] [address] [place] Immature granulocytes (Bld) [#/Vol] 0.04 10*3/uL Normal <0.10 [facility] Comment on above: Order Comment: Speci men Type: BLOOD SPECIMENOrdering Facility: [facility] Address: [address] [place] [address] Performed By: #### 5 7021-8 ####[facility] LABCLIA [id number] [place] [address] [place] Immature granulocytes/100 WBC (Bld) 0.5 % Normal [facility] Comment on above: Order Comment: Speci men Type: BLOOD SPECIMENOrdering Facility: [facility] Address: [address] [place] [address] Performed By: #### 5 7021-8 ####[facility] LABCLIA [id number] [place] [address] [place] Lymphocytes (Bld) [#/Vol] 0.59 10*3/uL Low 1.00-4.00 [facility] Comment on above: Order Comment: Speci men Type: BLOOD SPECIMENOrdering Facility: [facility] Address: [address] [place] [address] Performed By: #### 5 7021-8 ####[facility] LABCLIA [id number] [address] [place] Lymphocytes/100 WBC (Bld) 7.3 % Normal [facility] Comment on above: Order Comment: Speci men Type: BLOOD SPECIMENOrdering Facility: [facility] Address: [address] [place] [address] Performed By: #### 5 7021-8 ####[facility] LABCLIA [id number] [place] [address] [place] MCH (RBC) [Entitic mass] 30.0 pg Normal 26.0-34.0 [facility] Comment on above: Order Comment: Speci men Type: BLOOD SPECIMENOrdering Facility: [facility] Address: [address] [place] [address] Performed By: #### 5 7021-8 ####[facility] LABCLIA [id number] [place] [address] [place] MCHC (RBC) [Mass/Vol] 33.9 g/dL Normal 30.5-36.0 [facility] Comment on above: Order Comment: Speci men Type: BLOOD SPECIMENOrdering Facility: [facility] Address: [address] [place] [address] Performed By: #### 5 7021-8 ####[facility] LABIA [id number] [place] [address] [place] MCV (RBC) [Entitic vol] 88.5 fL Normal 80.0-100.0 [facility] Comment on above: Order Comment: Speci men Type: BLOOD SPECIMENOrdering Facility: [facility] Address: [address] [place] [address] Performed By: #### 5 7021-8 ####[facility] LABCLIA [id number] [place] [address] [place] Monocytes (Bld) [#/Vol] 0.56 10*3/uL Normal <0.87 [facility] Comment on above: Order Comment: Speci men Type: BLOOD SPECIMENOrdering Facility: [facility] Address: [address] [place] [address] Performed By: #### 5 7021-8 ####[facility] LABCLIA [id number] [place] [address] [place] Monocytes/100 WBC (Bld) 6.9 % Normal [facility] Comment on above: Order Comment: Speci men Type: BLOOD SPECIMENOrdering Facility: [facility] Address: [address] [place] [address] Performed By: #### 5 7021-8 ####[facility] LABCLIA [id number] [place] [address] [place] Neutrophils (Bld) [#/Vol] 6.87 10*3/uL Normal 1.45-7.50 [facility] Comment on above: Order Comment: Speci men Type: BLOOD SPECIMENOrdering Facility: [facility] Address: [address] [place] [address] Performed By: #### 5 7021-8 ####[facility] LABCLIA [id number] [place] [address] [place] Neutrophils/100 WBC (Bld) 85.2 % Normal [facility] Comment on above: Order Comment: Speci men Type: BLOOD SPECIMENOrdering Facility: [facility] Address: [address] [place] [address] Performed By: #### 5 7021-8 ####[facility] LABCLIA [id number] [place] [address] [place] Nucleated RBC (Bld) [#/Vol] 10*3/uL Normal <0.01 [facility] Comment on above: Order Comment: Speci men Type: BLOOD SPECIMENOrdering Facility: [facility] Address: [address] [place] [address] Performed By: #### 5 7021-8 ####[facility] LABCLIA [id number] [place] [address] [place] Nucleated RBC/100 WBC (Bld) [Ratio] 0.0 /100 WBC Normal [facility] Comment on above: Order Comment: Speci men Type: BLOOD SPECIMENOrdering Facility: [facility] Address: [address] [place] [address] Performed By: #### 5 7021-8 ####[facility] LABCLIA [id number] [place] [address] [place] Platelet mean volume (Bld) [Entitic vol] 8.2 fL Low 9.0-12.7 [facility] Comment on above: Order Comment: Speci men Type: BLOOD SPECIMENOrdering Facility: [facility] Address: [address] [place] [address] Performed By: #### 5 7021-8 ####[facility] LABCLIA [id number] [place] [address] [place] Platelets (Bld) [#/Vol] 238 10*3/uL Normal 150-400 [facility] Comment on above: Order Comment: Speci men Type: BLOOD SPECIMENOrdering Facility: [facility] Address: [address] [place] [address] Performed By: #### 5 7021-8 ####[facility] LABCLIA [id number] [place] [address] [place] RBC (Bld) [#/Vol] 3.90 10*6/uL Low 4.20-6.00 [facility] Comment on above: Order Comment: Speci men Type: BLOOD SPECIMENOrdering Facility: [facility] Address: [address] [place] [address] Performed By: #### 5 7021-8 ####[facility] LABCLIA [id number] [place] [address] [place] WBC (Bld) [#/Vol] 8.07 10*3/uL Normal 3.70-11.00 [facility] Comment on above: Order Comment: Speci men Type: BLOOD SPECIMENOrdering Facility: [facility] Address: [address] [place], [place] [address] Performed By: #### 5 7021-8 ####[facility] LABCLIA [id number] [facility]anti [id number] [id number] [facility] [place] CNDSon 11-06-2023 CNDS HNO ID: [id number] Author: ROXANA BAH MD Service: Urology Author Type: Physician Type: Discharge Summary Filed: 11/28/2023 10:20 Note Text: [place] [address] or (322) [facility] DISCHARGE SUMMARY Patient Name: Sukhdeep Gamino Patient Admission Date: 11/05/2023 Discharge Date: 11/06/2023 Attending Physician: Roxana Bah MD Principal Diagnosis: Prostate Cancer Secondary Diagnoses Patient Active Hospital Problem List: Prostate cancer (HCC) (11/05/2023) Operations During Hospitalization 1. Robotic Radical Prostatectomy, Pelvic Lymph Node Dissection Procedures Performed While Hospitalized: Intubation General anesthesia Reason for Hospitalization: The patient is a 62 year old male with GG5 prostate cancer who underwent the above procedure on 11/05/2023 Hospital Course: The patient tolerated the procedure well and post-operatively was transferred to PACU and ultimately to a regular nursing unit. Their pain was initially controlled with intravenous analgesia and their diet was restricted until signs of returning bowel function. The diet was advanced as bowel function returned and they were transitioned to oral pain medication as well as restarted on prior to admission medications. On post-operative day 1, the patient remained afebrile, was ambulating without difficulty, tolerating a regular diet, passing flatus, and their pain was adequately controlled with PO medication. The patient was discharged home with instructions to return for follow up in clinic. He was discharged with his catheter in place. Patient Condition at Discharge: Stable Discharge Disposition: Home Information Provided to the Patient: Patient was given a copy of Discharge Instructions Discharge Medications: Medication List START taking these medications acetaminophen 500 mg tablet Commonly known as: TYLENOL EXTRA STRENGTH Take 2 tablets by mouth every 8 hours as needed for pain for up to 40 doses. apixaban 2.5 mg tab(s) Commonly known as: ELIQUIS Take 1 tablet by mouth two times a day for 7 days. ciprofloxacin HCl 500 mg tablet Commonly known as: CIPRO Take 1 tablet by mouth two times a day for 3 days. Start taking 1 day prior to padgett removal docusate sodium 100 mg capsule Commonly known as: COLACE Take 1 capsule by mouth two times a day. oxybutynin XL 5 mg 24 hr tablet Commonly known as: DITROPAN XL Take 1 tablet by mouth once daily as needed (bladder spasms) for up to 6 days. Please stop taking at least ONE DAY prior to padgett removal oxyCODONE IR 5 mg immediate release tablet Commonly known as: ROXICODONE Take 1 tablet by mouth every 8 hours as needed for pain for up to 9 doses. CONTINUE taking these medications aspirin, enteric coated 81 mg EC tablet Commonly known as: ASPIRIN, ENTERIC COATED bicalutamide 50 mg tablet Commonly known as: CASODEX Take 1 tablet by mouth once daily. carvedilol 25 mg tablet Commonly known as: COREG dilTIAZem CD 120 mg 24 hr capsule Commonly known as: CARDIZEM CD, CARTIA XT fluticasone 50 mcg/actuation nasal spray Commonly known as: FLONASE lisinopril 10 mg tablet Commonly known as: ZESTRIL pravastatin 40 mg tablet Commonly known as: PRAVACHOL tamsulosin 0.4 mg Commonly known as: FLOMAX warfarin 6 mg tablet Commonly known as: COUMADIN Where to Get Your Medications These medications were sent to [facility] [address] [place] [address] [address] [facility] [phone] [address] acetaminophen 500 mg tablet apixaban 2.5 mg tab(s) ciprofloxacin HCl 500 mg tablet docusate sodium 100 mg capsule oxybutynin XL 5 mg 24 hr tablet oxyCODONE IR 5 mg immediate release tablet No future appointments. ELECTRONICALLY SIGNED: Nayely Flor MD [facility] ECG COMPLETEon 11-06-2023 ECG COMPLETE Ventricular Rate : 1 20 BPM QRS Duration : 78 ms Q-T Interval : 346 ms QTC Calculation(Bazett) : 489 ms Calculated R [place] : -41 degrees Calculated T [place] : 7 degrees ATRIAL FIBRILLATION WITH RAPID VENTRICULAR RESPONSE LEFT AXIS DEVIATION LOW VOLTAGE QRS, CONSIDER PULMONARY DISEASE, PERICARDIAL EFFUSION, OR NORMAL VARIANT INFERIOR MYOCARDIAL INFARCTION , AGE UNDETERMINED ABNORMAL ECG Confirmed by ALEXSANDRA ADLER M.D. ([id number]) on 11/12/2023 4:53:17 PM NAME : SUKHDEEP GAMINO PID : [id number] : 1960 Gender : Male Race : Unknown ORD : [id number] Procedure Date : Nov 06 2023 02:48:19 Edit Date : Nov 12 2023 16:56:02 Diagnosis: ATRIAL FIBRILLATION WITH RAPID VENTRICULAR RESPONSE LEFT AXIS DEVIATION LOW VOLTAGE QRS, CONSIDER PULMONARY DISEASE, PERICARDIAL EFFUSION, OR NORMAL VARIANT INFERIOR MYOCARDIAL INFARCTION , AGE UNDETERMINED ABNORMAL ECG Confirmed by ALEXSANDRA ADLER M.D. ([id number]) on 11/12/2023 4:53:17 PM Test Reason : Arrhythmia Location : [address] : [address] [place] [address] Overread By : ALEXSANDRA ADLER M.D. Edited By : ALEXSANDRA ADLER M.D. Referred By : , Acquired by : HELADIO DUENAS Normal [facility] Magnesium [facility] 11-05 Magnesium [Mass/Vol] 2.1 mg/dL Normal 1.7-2.3 [facility] Comment on above: Order Comment: Speci men Type: BLOOD SPECIMENOrdering Facility: [facility] Address: [address] [place] [address] Performed By: #### 2 4321-2, 2777-1, 09695-4 ####[facility] LABCLIA [id number] [address] [place] NURSING PROGon 11-06-2023 NURSING PROG HNO ID: [id number] Author: SHAHRIAR ALEXIS RN Service: ? Author Type: Registered Nurse Type: Nursing Progress Note Filed: 11/06/2023 05:43 Note Text: Nursing Progress Note Topic of Note: Daily Note PATIENT NAME: Sukhdeep Gamino Patient Location: [place] [address]/[facility]-10 Room: [place] [address] 2247 HR 102-119, asymptomatic, Dr. Flori Ochoa notified. 0230 HR 102-[address] Ochoa notified. Ordered STAT ECG, Tele monitor. 0334 Metoprolol given as ordered.Dr. Ochoa at beside, pt. remained asymptomatic, BP stable. HR ranges 88-115. Additional labs ordered. 0403 Carvedilol given early as ordered. HR 80s-115 0541 No results for for Mag and Phos yet, follow up made, talked to Roxy. In process still. This note was completed by: Shahriar Pedro [facility] Phosphate SerPl-ncon 11-05 Phosphate [Mass/Vol] 2.3 mg/dL Low 2.7-4.8 [facility] Comment on above: Order Comment: Speci men Type: BLOOD SPECIMENOrdering Facility: [facility] Address: [address] [place] [address] Performed By: #### 2 4321-2, 2777-1, 06559-8 ####[facility] LABCLIA [id number] [place] [address] [place] ANES POSTPROC EVALon 024 ANES POSTPROC EVAL HNO ID: [id number] Author: KATHY LINDO MD Service: ? Author Type: Anesthesiologist Type: Anesthesia Postprocedure Evaluation Filed: 11/05/2023 18:48 Note Text: POST ANESTHESIA EVALUATION NOTE : 1960 Procedure Summary Date: 11/05/23 Room / Location: [address] [facility] Anesthesia Start: 1253 Anesthesia Stop: 1816 Procedure: ROBOTIC LAPAROSCOPIC RETROPUBIC RADICAL PROSTATECTOMY W/ NERVE SPARING (Prostate) Diagnosis: Malignant neoplasm of prostate (HCC) (Malignant neoplasm of prostate (HCC) [C61]) Surgeons: Roxana Bah MD Responsible Provider: Kathy Lindo MD Anesthesia Type: general ASA Status: 3 Anesthesia Type: general Airway Type: ETT Last Vitals Vitals Value Taken Time BP 132/89 11/05/23 1845 Temp 36.2 ?C (97.2 ?F) 11/05/23 1817 Pulse 112 11/05/23 1846 Resp 13 11/05/23 1846 SpO2 100 % 11/05/23 1846 Vitals shown include unfiled device data. Post Anesthesia Patient Status Patient Evaluation: bedside. Anticipated Disposition: inpatient floor planned admission. Neurological Status: aware and responsive. Pulmonary Status: breathing comfortably on room air Airway Control: returned to baseline unsupported. Cardiovascular Status: stable. Pain Management: clinically adequate Postoperative Hydration: acceptable. Intraoperative Events: no significant anesthesia events Post Operative Nausea/Vomiting Status: no significant post operative nausea or vomiting Recommendation: continue current plan of care. Anesthesia Observations No Documentation SIGNATURE: Kathy Lindo MD PATIENT NAME: Sukhdeep Gamino DATE: November 05, 2023 TIME: 6:48 PM CSN: [id number] Normal [facility] ANES PRE-OPon 11-05-2023 ANES PRE-OP HNO ID: [id number] Author: KATHY LINDO MD Service: ? Author Type: Anesthesiologist Type: Anesthesia Preprocedure Evaluation Filed: 11/05/2023 12:19 Note Text: ANESTHESIOLOGY DAY OF SURGERY NOTE : 1960 Procedure Information Date/Time: 11/05/23 1224 Procedure: ROBOTIC LAPAROSCOPIC RETROPUBIC RADICAL PROSTATECTOMY W/ NERVE SPARING Location: MAIN OR[facility] Surgeons: Roxana Bah MD Estimated body mass index is 27.46 kg/m? as calculated from the following: Height as of 11/03/23: 177.8 cm (5' 10 ). Weight as of 11/03/23: 86.8 kg (191 lb 5.8 oz). Most recent hematocrit and potassium results: Hematocrit 43.8 11/03/2023 Potassium 4.8 11/03/2023 Relevant Problems CARDIO (+) Essential hypertension (+) Paroxysmal atrial fibrillation (HCC) PULMONARY (+) Asthma I - PHYSICAL EVALUATION AIRWAY Patient intubated: No. Tracheostomy tube not present Mallampati: II. TM distance: >3 FB. Neck ROM: full ROM without neurological symptoms. Mouth opening: adequate. Short neck: no. Thick neck: no DENTAL Normal dental observations. II - ANESTHESIA PLAN ASA Score: 3 Anesthetic Plan: general Airway type: ETT NPO Status: adequate Beta José Miguel Monitoring Plan Monitoring plan: standard ASA. Post Procedure Analgesic Plan Postoperative analgesic plan: parenteral or oral opioids. Informed Consent Anesthetic risks, benefits, alternatives, personnel and consent discussed: yes. Patient / Responsible Libertarian agrees to proceed: yes Patient / Surrogate agrees to blood products: Yes DNR status not reviewed with patient and/or family prior to surgery. Significant changes in the patient condition since the History and Physical, not otherwise documented in primary service progress note: no. Potential Anesthesia issues that may suggest increased risk of complications or contraindication to planned procedure: none. Vitals Value Taken Time BP 139/89 11/05/23 1136 Pulse Resp 16 11/05/23 1136 Temp 36.3 ?C (97.3 ?F) 11/05/23 1136 SpO2 100 % 11/05/23 1136 Facility-Administered Medications as of 11/05/2023 Medication Dose Route Frequency - lidocaine (PF) 10 mg/mL (1 %) 1-2 mg injection (XYLOCAINE) 0.1-0.2 mL INTRADERMAL PRN Or - lidocaine 1% 0.25 mL subcutaneous j-tip syringe (XYLOCAINE) 0.25 mL SUBCUTANEOUS PRN - lactated ringers iv infusion 5-30 mL/hr INTRAVENOUS CONTINUOUS - NaCl 0.9% iv flush bag 20 mL INTRAVENOUS PRN - ceFAZolin iv piggyback 2 g in D5W (iso-osmotic) 100 mL (ANCEF) 2 g INTRAVENOUS Pre-Op Once - heparin 5,000 Units injection 5,000 Units SUBCUTANEOUS ONCE Outpatient Medications as of 11/05/2023 Medication Sig - aspirin, enteric coated (ASPIRIN, ENTERIC COATED) 81 mg EC tablet in the morning. - pravastatin (PRAVACHOL) 40 mg tablet Take 40 mg by mouth daily at bedtime. - dilTIAZem CD (CARDIZEM CD, CARTIA XT) 120 mg 24 hr capsule TAKE 1 CAPSULE BY MOUTH ONCE DAILY DIRECTED - carvedilol (COREG) 25 mg tablet TAKE 1 TABLET BY MOUTH IN THE MORNING AND AT BEDTIME - lisinopril (ZESTRIL) 10 mg tablet Take 10 mg by mouth once daily. - tamsulosin (FLOMAX) 0.4 mg Take 1 capsule by mouth every afternoon. - bicalutamide (CASODEX) 50 mg tablet Take 1 tablet by mouth once daily. - warfarin (COUMADIN) 6 mg tablet Take 1 tablet by mouth every afternoon. - fluticasone (FLONASE) 50 mcg/actuation nasal spray 1 [place]. I have interviewed and examined the patient. I have reviewed the medical record and/or the pre-anesthesia evaluation, pertinent labs, and test results. This contains updated information obtained within 48 hours of Surgery/Procedure. SIGNATURE: Kathy Lindo MD PATIENT NAME: Sukhdeep Gamino DATE: November 05, 2023 TIME: 12:18 PM CSN: [id number] Normal [facility] BRIEF OP NOTon 11-05-2023 BRIEF OP NOT HNO ID: [id number] Author: RODRÍGUEZ WILKES MD Service: Urology Author Type: Physician Type: Brief Op Note Filed: 11/05/2023 18:04 Note Text: UROLOGY SERVICE BRIEF OPERATIVE NOTE LOG ID: [id number] Surgery/Procedure Date: 11/05/2023 Incision/Procedure Start Time: 1:35 PM Incision Close/Procedure End Time: 5:57 PM Patient Age: [age] year old Surgeon(s)/Proceduralist(s) and Benefits Assistant(s): Surgeon(s) and Role: * Roxana Bah MD - Primary * Rodríguez Wilkes MD - Fellow * Jorge L Steel MD - Fellow No Additional Staff Anesthesia: General Preop Diagnosis: Pre-Op Diagnosis Codes: * Malignant neoplasm of prostate (HCC) [C61] Postop Diagnosis: Same as preoperative diagnosis Procedure: Robotic assisted radical prostatectomy, bilateral pelvic lymph node dissection FLUIDS Estimated Blood Loss: 150 mls Accidental punctures or Lacerations: None Drains: 1) 20F padgett catheter Cultures: None Findings: see full operative report Specimens: ID Type Source Tests Collected by Time Destination A : Prostate and seminal vesicles Tissue PROSTATE RADICAL PROSTATECTOMY SURGICAL PATHOLOGY Roxana Bah MD 11/05/2023 5:35 PM B : Bilateral pelvic lymph nodes Tissue LYMPH NODE SURGICAL PATHOLOGY Roxana Bah MD 11/05/2023 5:35 PM Complications: None SIGNATURE: Rodríguez Wilkes MD PATIENT NAME: Sukhdeep Gamino DATE: November 05, 2023 TIME: 6:02 PM PAGER/CONTACT #: Normal [facility] Basic metabolic 2000 panelon 11-05-2023 Anion gap [Moles/Vol] 12 mmol/L Normal 9-18 [facility] Comment on above: Order Comment: Speci men Type: BLOOD SPECIMENOrdering Facility: [facility] Address: [address] [place] [place] [id number] Performed By: #### 2 4321-2 ####[facility] LABCLIA [id number] [place] [address] [place] Calcium [Mass/Vol] 8.5 mg/dL Normal 8.5-10.2 [facility] Comment on above: Order Comment: Speci men Type: BLOOD SPECIMENOrdering Facility: [facility] Address: [address] [place] [address] Performed By: #### 2 4321-2 ####[facility] LABCLIA [id number] [place] [address] [place] Chloride [Moles/Vol] 106 mmol/L High 97-105 [facility] Comment on above: Order Comment: Speci men Type: BLOOD SPECIMENOrdering Facility: [facility] Address: [address] [place] [address] Performed By: #### 2 4321-2 ####[facility] LABCLIA [id number] [place] [address] [place] CO2 [Moles/Vol] 21 mmol/L Low 22-30 [facility] Comment on above: Order Comment: Speci men Type: BLOOD SPECIMENOrdering Facility: [facility] Address: [address] [place], [place] [address] Performed By: #### 2 4321-2 ####[facility] LABCLIA [id number] [place] [id number] [place] Creatinine [Mass/Vol] 1.29 mg/dL High 0.73-1.22 [facility] Comment on above: Order Comment: Speci men Type: BLOOD SPECIMENOrdering Facility: [facility] Address: [address] [place], [place] [address] Performed By: #### 2 4321-2 ####[facility] LABCLIA [id number] [place] [address] [place] Creatinine and Glomerular filtration rate.predicted panel (S/P/Bld) 62 mL/min/1.73m??? Normal >=60 [facility] Comment on above: Order Comment: Penelope taylor Type: BLOOD SPECIMENOrdering Facility: [facility] Address: [address] [place] [address] Result Comment: Jamila mated Glomerular Filtration Rate (eGFR) is calculated using the 2020 CKD-EPI creatinine equation. This equation utilizes serum creatinine, sex, and age as parameters. The creatinine assay has traceable calibration to isotope dilution-mass spectrometry. Refer to KDIGO guidelines for clinical interpretation. In patients with unstable renal function, e.g. those with acute kidney injury, the eGFR may not accurately reflect actual GFR. Performed By: #### 2 4321-2 ####[facility] LABCLIA [id number] [place] [address] [place] Glucose [Mass/Vol] 134 mg/dL High 74-99 [facility] Comment on above: Order Comment: Penelope taylor Type: BLOOD SPECIMENOrdering Facility: [facility] Address: [address] [place] [address] Result Comment: The [place] [employer] Association (ADA) provides guidance for cutoff values for fasting glucose and random glucose. The ADA defines fasting as no caloric intake for at least 8 hours. Fasting plasma glucose results between 100 to 125 mg/dL indicate increased risk for diabetes (prediabetes). Fasting plasma glucose results greater than or equal to 126 mg/dL meet the criteria for diagnosis of diabetes. In the absence of unequivocal hyperglycemia, results should be confirmed by repeat testing. In a patient with classic symptoms of hyperglycemia or hyperglycemic crisis, random plasma glucose results greater than or equal to 200 mg/dL meet the criteria for diagnosis of diabetes. Reference: Standards of Medical Care in Diabetes 2016, [place] [employer]. Diabetes Care. 2016.39(Suppl 1). Performed By: #### 2 4321-2 ####[facility] LABCLIA [id number] [place] [address] [place] Potassium [Moles/Vol] 4.6 mmol/L Normal 3.7-5.1 [facility] Comment on above: Order Comment: Speci men Type: BLOOD SPECIMENOrdering Facility: [facility] Address: [address] [place] [address] Performed By: #### 2 4321-2 ####[facility] LABIA [id number] [place] [address] [place] Sodium [Moles/Vol] 139 mmol/L Normal 136-144 [facility] Comment on above: Order Comment: Speci men Type: BLOOD SPECIMENOrdering Facility: [facility] Address: [address] [place] [address] Performed By: #### 2 4321-2 ####[facility] LABIA [id number] [place] [address] [place] Urea nitrogen [Mass/Vol] 25 mg/dL High 9-24 [facility] Comment on above: Order Comment: Speci men Type: BLOOD SPECIMENOrdering Facility: [facility] Address: [address] [place] [address] Performed By: #### 2 4321-2 ####[facility] LABIA [id number] [place] [address] [place] CBC W Auto Differential pane l (Bld)on 11-05-2023 Basophils (Bld) [#/Vol] 0.03 10*3/uL Normal <0.11 [facility] Comment on above: Order Comment: Speci men Type: BLOOD SPECIMENOrdering Facility: [facility] Address: [address] [place] [address] Performed By: #### 5 7021-8 ####[facility] LABIA [id number] [place] [address] [place] Basophils/100 WBC (Bld) 0.3 % Normal [facility] Comment on above: Order Comment: Speci men Type: BLOOD SPECIMENOrdering Facility: [facility] Address: [address] [place] [address] Performed By: #### 5 7021-8 ####[facility] LABCLIA [id number] [place] [address] [place] Differential cell count method Nom (Bld) Auto Normal [facility] Comment on above: Order Comment: Speci men Type: BLOOD SPECIMENOrdering Facility: [facility] Address: [address] [place] [address] Performed By: #### 5 7021-8 ####[facility] LABCLIA [id number] [place] [address] [place] Eosinophils (Bld) [#/Vol] 10*3/uL Normal <0.46 [facility] Comment on above: Order Comment: Speci men Type: BLOOD SPECIMENOrdering Facility: [facility] Address: [address] [place] [address] Performed By: #### 5 7021-8 ####[facility] LABCLIA [id number] [place] [address] [place] Eosinophils/100 WBC (Bld) 0.2 % Normal [facility] Comment on above: Order Comment: Speci men Type: BLOOD SPECIMENOrdering Facility: [facility] Address: [address] [place] [address] Performed By: #### 5 7021-8 ####[facility] LABCLIA [id number] [place] [address] [place] Erythrocyte distribution width (RBC) [Ratio] 13.1 % Normal 11.5-15.0 [facility] Comment on above: Order Comment: Speci men Type: BLOOD SPECIMENOrdering Facility: [facility] Address: [address] [place] [address] Performed By: #### 5 7021-8 ####[facility] LABCLIA [id number] [place] [address] [place] Hematocrit (Bld) [Volume fraction] 34.0 % Low 39.0-51.0 [facility] Comment on above: Order Comment: Speci men Type: BLOOD SPECIMENOrdering Facility: [facility] Address: [address] [place] [address] Performed By: #### 5 7021-8 ####[facility] LABCLIA [id number] [place] [address] [place] Hemoglobin (Bld) [Mass/Vol] 11.6 g/dL Low 13.0-17.0 [facility] Comment on above: Order Comment: Speci men Type: BLOOD SPECIMENOrdering Facility: [facility] Address: [address] [place] [address] Performed By: #### 5 7021-8 ####[facility] LABCLIA [id number] [place] [address] [place] Immature granulocytes (Bld) [#/Vol] 0.06 10*3/uL Normal <0.10 [facility] Comment on above: Order Comment: Speci men Type: BLOOD SPECIMENOrdering Facility: [facility] Address: [address] [place] [address] Performed By: #### 5 7021-8 ####[facility] LABCLIA [id number] [place] [address] [place] Immature granulocytes/100 WBC (Bld) 0.7 % Normal [facility] Comment on above: Order Comment: Speci men Type: BLOOD SPECIMENOrdering Facility: [facility] Address: [address] [place] [address] Performed By: #### 5 7021-8 ####[facility] LABCLIA [id number] [place] [address] [place] Lymphocytes (Bld) [#/Vol] 0.39 10*3/uL Low 1.00-4.00 [facility] Comment on above: Order Comment: Speci men Type: BLOOD SPECIMENOrdering Facility: [facility] Address: [address] [place] [address] Performed By: #### 5 7021-8 ####[facility] LABIA [id number] [place] [address] [place] Lymphocytes/100 WBC (Bld) 4.4 % Normal [facility] Comment on above: Order Comment: Speci men Type: BLOOD SPECIMENOrdering Facility: [facility] Address: [address] [place] [address] Performed By: #### 5 7021-8 ####[facility] LABIA [id number] [place] [address] [place] MCH (RBC) [Entitic mass] 30.5 pg Normal 26.0-34.0 [facility] Comment on above: Order Comment: Speci men Type: BLOOD SPECIMENOrdering Facility: [facility] Address: [address] [place] [address] Performed By: #### 5 7021-8 ####[facility] LABIA [id number] [place] [address] [place] MCHC (RBC) [Mass/Vol] 34.1 g/dL Normal 30.5-36.0 [facility] Comment on above: Order Comment: Speci men Type: BLOOD SPECIMENOrdering Facility: [facility] Address: [address] [place] [address] Performed By: #### 5 7021-8 ####[facility] LABIA [id number] [place] [address] [place] MCV (RBC) [Entitic vol] 89.5 fL Normal 80.0-100.0 [facility] Comment on above: Order Comment: Speci men Type: BLOOD SPECIMENOrdering Facility: [facility] Address: [address] [place] [address] Performed By: #### 5 7021-8 ####[facility] LABIA [id number] [place] [address] [place] Monocytes (Bld) [#/Vol] 0.26 10*3/uL Normal <0.87 [facility] Comment on above: Order Comment: Speci men Type: BLOOD SPECIMENOrdering Facility: [facility] Address: [address] [place] [address] Performed By: #### 5 7021-8 ####[facility] LABCLIA [id number] [place] [address] [place] Monocytes/100 WBC (Bld) 2.9 % Normal [facility] Comment on above: Order Comment: Speci men Type: BLOOD SPECIMENOrdering Facility: [facility] Address: [address] [place] [address] Performed By: #### 5 7021-8 ####[facility] LABCLIA [id number] [place] [address] [place] Neutrophils (Bld) [#/Vol] 8.13 10*3/uL High 1.45-7.50 [facility] Comment on above: Order Comment: Speci men Type: BLOOD SPECIMENOrdering Facility: [facility] Address: [address] [place] [address] Performed By: #### 5 7021-8 ####[facility] LABCLIA [id number] [place] [address] [place] Neutrophils/100 WBC (Bld) 91.5 % Normal [facility] Comment on above: Order Comment: Speci men Type: BLOOD SPECIMENOrdering Facility: [facility] Address: [address] [place] [place] [address] Performed By: #### 5 7021-8 ####[facility] LABCLIA [id number] [place] [address] [place] Nucleated RBC (Bld) [#/Vol] 10*3/uL Normal <0.01 [facility] Comment on above: Order Comment: Speci men Type: BLOOD SPECIMENOrdering Facility: [facility] Address: [address] [place] [address] Performed By: #### 5 7021-8 ####[facility] LABCLIA [id number] [place] [address] [place] Nucleated RBC/100 WBC (Bld) [Ratio] 0.0 /100 WBC Normal [facility] Comment on above: Order Comment: Speci men Type: BLOOD SPECIMENOrdering Facility: [facility] Address: [address] [place] [address] Performed By: #### 5 7021-8 ####[facility] LABCLIA [id number] [place] [address] [place] Platelet mean volume (Bld) [Entitic vol] 8.0 fL Low 9.0-12.7 [facility] Comment on above: Order Comment: Speci men Type: BLOOD SPECIMENOrdering Facility: [facility] Address: [address] [place] [address] Performed By: #### 5 7021-8 ####[facility] LABIA [id number] [place] [address] [place] Platelets (Bld) [#/Vol] 240 10*3/uL Normal 150-400 [facility] Comment on above: Order Comment: Speci men Type: BLOOD SPECIMENOrdering Facility: [facility] Address: [address] [place] [address] Performed By: #### 5 7021-8 ####[facility] LABCLIA [id number] [place] [address] [place] RBC (Bld) [#/Vol] 3.80 10*6/uL Low 4.20-6.00 [facility] Comment on above: Order Comment: Speci men Type: BLOOD SPECIMENOrdering Facility: [facility] Address: [address] [place] [address] Performed By: #### 5 7021-8 ####[facility] LABIA [id number] [id number] [address] [place] WBC (Bld) [#/Vol] 8.89 10*3/uL Normal 3.70-11.00 [facility] Comment on above: Order Comment: Speci men Type: BLOOD SPECIMENOrdering Facility: [facility] Address: [address] [place] [address] Performed By: #### 5 7021-8 ####[facility] LABCLIA [id number] [place] [address] [place] NURSING PROGon 11-05-2023 NURSING PROG HNO ID: [id number] Author: MIRIAM IQBAL, BOY Service: Nursing Author Type: Registered Nurse Type: Nursing Progress Note Filed: 11/05/2023 20:29 Note Text: Transfer Note: PATIENT NAME: Sukhdeep Gamino Patient Location: [place] [address] Room: [place] [address] Patient transferred into room/unit [facility] from PACU in stable condition. Actions taken: No futher actions taken at this time. Will continue to monitor and check with patient. Normal [facility] OPERATIVE NOon 11-05-2023 OPERATIVE NO HNO ID: [id number] Author: ROXANA BAH MD Service: Urology Author Type: Physician Type: Operative Report Filed: 11/29/2023 22:56 Note Text: UROLOGY OPERATIVE REPORT LOG ID: [id number] Surgery/Procedure Date: 11/05/2023 INCISION/PROCEDURE START TIME: 1:35 PM INCISION CLOSE/PROCEDURE END TIME: 5:57 PM Surgeon(s)/Proceduralist(s) and Benefits Assistant(s): Surgeon(s) and Role: * Roxana Bah MD - Primary * Rodríguez Wilkes MD - Fellow * Jorge L Steel MD - Fellow No Additional Staff Procedure(s): 1) Xi Robotic-assisted laparoscopic radical prostatectomy 2) Bilateral pelvic lymph node dissection Anatomic Site: Prostate, Laterality: N/A Pelvic Lymph Nodes, Laterality: Bilateral Approach: Robotic Assisted Laparoscopic Anesthesia: General Operative Indications: This is a 62 year old male with 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 Operative Findings: - Prostate size: 30g - No overt extraprostatic disease - Right partial nerve spare - Watertight anastomosis - Excellent Hemostasis throughout case Procedure Details: After informed consent was obtained, the patient was brought to the operating room. A surgical huddle was performed with the patient and all involved staff. Prophylactic antibiotics and heparin were administered. General anesthesia was administered. The patient was placed into the supine position. All pressure points were padded. He was prepped and draped in the usual sterile fashion. A timeout procedure was performed and confirmed. Initial pneumoperitoneum to 15mmHg was obtained using the Veress needle 2cm above the umbilicus. Subsequently, an 8-mm port was placed in this same area the abdominal cavity was surveyed for injury. Two 8mm robotic ports were placed on the left, one 8-mm robotic port and one 12-mm legal support assistant port was placed on the right. The bed was then put in the trendelenburg position. The robot was docked and insufflation reduced to 12mmHg. The bladder was released at the urachus from its anterior attachment to the abdominal wall and dropped in the standard fashion. The prostate was then defatted and the endopelvic fascia was opened sharply bilaterally. The levator muscles were swept laterally and the puboprostatic ligaments were taken down to visualize the DVC. The anterior bladder neck was then incised and dissection proceeded through the posterior bladder neck. The patient had no median lobe. The vas deferens and seminal vesicles were exposed and freed with electrocautery. The vasa deferentia were transected. The Denonvier's fascia was incised and the prostatic vascular pedicles were controlled bilaterally using the Synchroseal. Partial nerve sparing was performed on the right side using high release and was done from the base of the prostate to the apex. The DVC was then ligated with the synchroseal device The urethra was transected using cold scissors. Following complete urethral transection, the prostate was then mobilized and freed from its posterior attachments and set aside. Hemostasis was assured with electrocautery and was excellent. Urethrovesical anastomosis was then performed using two 3-0 V-lock sutures in a running anastomotic technique. The first suture was first used as a Cooper stitch, and then incorporated into the anastomosis on posterior and then the left. The second 3-0 V-lock was used to complete the right side of the anastomosis. A new 20F padgett catheter was placed and the bladder was irrigated and demonstrated watertight anastomosis. The catheter balloon was inflated with 10mL of sterile water. Bilateral pelvic lymph node dissection was performed in usual fashion between the external iliac artery laterally, node of [place] inferiorly, below the obturator neurovascular bundle posteriorly, and the bifurcation of the common iliac artery superiorly. At this point, hemostasis was assessed and maintained at the prostatic fossa. The specimen was placed in an endocatch bag and the robot was then undocked. Ports were removed under direct vision. The specimen was extracted after enlarging the supra-umbilical incision. All incisions were irrigated with normal saline. The midline fascia was then closed with running 0 PDS suture. The subcutaneous tissue of the midline incision was closed with 3-0 vicryl suture. The skin was closed using 4-0 Vicryl and covered with surgical glue. 30 cc of 0.25% marcaine in total was instilled subcutaneously around all incisions. At the end of the procedure the sponge and needle count were correct. The patient tolerated the procedure well. The patient was extubated in the OR, and taken to recovery room in good condition. Pre-Op/Pre-Procedure Diagnosis: Pre-Op Diagnosis Codes: * Malignant neoplasm of prostate (H (more content not included)... Normal [facility] SURGICAL PATHOLOGYon 024 BLOCK FOR ADDITIONAL BIOMARKERS/MOLECULA R STUDIES A20 Normal [facility] Comment on above: Order Comment: Speci men Type: TISSUE SPECIMENOrdering Facility: [facility] Address: [address] [place] [address] Performed By: #### S ####[facility] LABCLIA [id number] [place] [address] [place] CASE REPORT Normal [facility] Comment on above: Order Comment: Speci men Type: TISSUE SPECIMENOrdering Facility: [facility] Address: [address] [place] [address] Result Comment: Surg ica Pathology Report Case: [id number] Authorizing Provider: Roxana Bah MD Collected: 11/05/2023 05:35 PM Ordering Location: Admitting Received: 11/05/2023 06:13 PM Pathologist: Eldon Watkins MD Specimens: A) - PROSTATE RADICAL PROSTATECTOMY, Prostate and seminal vesicles B) - LYMPH NODE, Bilateral pelvic lymph nodes Performed By: #### S ####[facility] LABCLIA [id number] [place] [address] [place] CLINICAL HISTORY Normal [facility] Comment on above: Order Comment: Speci men Type: TISSUE SPECIMENOrdering Facility: [facility] Address: [address] [place] [address] Result Comment: Pre- op diagnosis: Malignant neoplasm of prostate (HCC) [C61] Performed By: #### S ####[facility] [id number] [address] FINAL DIAGNOSIS Normal [facility] Comment on above: Order Comment: Speci men Type: TISSUE SPECIMENOrdering Facility: [facility] Address: [address] [place] [address] Result Comment: John meza, radical prostatectomy: - Prostatic adenocarcinoma, Christine score 4+4=8 with tertiary pattern 5, Grade Group 4, with extraprostatic extension of neoplasm. - Margins of excision are free of neoplasm. A. Seminal vesicles, right and left, excision: - Negative for neoplasm. B. Bilateral pelvic lymph nodes, excision: - Negative for neoplasm, twenty-three lymph nodes. Radical Prostatectomy Morphology Summary Unfavorable histology: Present (Greater than 50%) Large cribriform pattern 4: Present Intraductal carcinoma: Absent BIANKA/gautam 11/10/2023 Performed By: #### S ####[facility] LABIA [id number] [address] [place] FINAL PERFORMING LAB Normal [facility] Comment on above: Order Comment: Speci men Type: TISSUE SPECIMENOrdering Facility: [facility] Address: [address] [place] [address] Result Comment: Diag nostic interpretation performed at [facility], [address] [place] [address] CLIA# [id number] Band Splitter: Gerry Wilson M.D. Performed By: #### S ####[facility] LABCLIA [id number] KAR[place]rine [id number] [address] [place] GROSS DESCRIPTION Normal [facility] Comment on above: Order Comment: Speci men Type: TISSUE SPECIMENOrdering Facility: [facility] Address: [address] [place] [address] Result Comment: A. P ROSTATE RADICAL PROSTATECTOMY Received in formalin, labeled prostate radical prostatectomy is a prostate gland with attached seminal vesicles and portions of vas deferens. It measures 5.2 cm craniocaudally, 3.5 cm anteroposteriorly, and 5.1 cm transversely. It weighs 46.7 gms with attached seminal vesicles and 38.35 gm without seminal vesicles. The apex of the gland is clinical. The capsular surface is smooth. On palpation an area of firmness is not identified. The gland is inked blue on the right and yellow on the left. After fixation, a bladder neck section is obtained and the gland is cut from apex to base transversely at 3 mm intervals. An ink dot is placed on the basal side of each slice of tissue except for the basal section which is dotted on the apical surface. The cross sections do not reveal a mass lesion. Rubbery nodularity is present. The seminal vesicles are unremarkable. Segments of vas deferens are unremarkable. Outboard Motorboat Rigger sections are submitted as follows: A1. Right apical margin, perpendicular A2. Left apical margin, perpendicular A3. Right basal margin, perpendicular A4. Left basal margin, perpendicular A5. 3mm right A6. 3mm left A7. 6mm right A8. 6mm left A9. 9mm right anterior A10. 9mm left anterior A11. 9mm right posterior A12. 9mm left posterior A13. 12mm right posterior A14. 12mm left posterior A15. 15mm right anterior A16. 15mm left anterior A17. 15mm right posterior A18. 15mm left posterior A19. 18mm right posterior A20. 18mm left posterior A21. 21mm right anterior A22. 21mm left anterior A23. 21 mm right posterior A24. 21 mm left posterior, bisected A25. Right seminal vesicle base A26. Left seminal vesicle base B. LYMPH NODE Received in formalin labeled lymph node-bilateral pelvic lymph nodes are multiple fragments of fibroadipose tissue aggregating to 6.7 x 5.4 x 1.8 cm. Multiple possible lymph nodes ranging in size from 0.2 to 1.1 cm are identified. Sections are submitted as follows: B1-3. Multiple possible lymph nodes per cassette, intact B5-6. Outboard Motorboat Rigger fibroadipose tissue Gross examination performed at [facility], [address] [place] [address] CLIA# [id number] 11/06/23 1:56 PM Performed By: #### S ####[facility] LABCLIA [id number] [place] [address] [place] SYNOPTIC REPORT Normal [facility] Comment on above: Order Comment: Speci men Type: TISSUE SPECIMENOrdering Facility: [facility] Address: [address] [place] [address] Result Comment: PROS CAMPOS GLAND: Radical Prostatectomy PROSTATE GLAND: RESECTION - All Specimens 8th Edition - Protocol posted: 04/22/2023 SPECIMEN Procedure: Radical prostatectomy Prostate Size: Prostate Weight (Grams): 38.35 g Prostate Greatest Dimension (Centimeters): 5.2 cm Additional Prostate Dimension (Centimeters): 5.1 cm Additional Prostate Dimension (Centimeters): 3.5 cm TUMOR Histologic Type: Acinar adenocarcinoma, conventional (usual) Histologic Grade: Grade: Grade group 4 (Eldridge Score 4 + 4 = 8) Intraductal Carcinoma (IDC): Not identified Cribriform Glands: Present Treatment Effect: Not identified TUMOR QUANTITATION: Estimated Percentage of Prostate Involved by Tumor: 21 - 30% Extraprostatic Extension (EPE): Present, nonfocal Location of Extraprostatic Extension: Left posterior Urinary Bladder Neck Invasion: Not identified Seminal Vesicle Invasion: Not identified Lymphatic and / or Vascular Invasion: Not Identified MARGINS Margin Status: All margins negative for invasive carcinoma REGIONAL LYMPH NODES Regional Lymph Node Status: : All regional lymph nodes negative for tumor Number of Lymph Nodes Examined: 23 pTNM CLASSIFICATION (AJCC 8th Edition) Reporting of pT, pN, and (when applicable) pM categories is based on information available to the pathologist at the time the report is issued. As per the AJCC (Chapter 1, 8th Ed.) it is the managing physician???s responsibility to establish the final pathologic stage based upon all pertinent information, including but potentially not limited to this pathology report. pT Category: pT3a pN Category: pN0 Performed By: #### S ####[facility] LABIA [id number] [address] [place] CBC panel Auto (Bld)on 11-02 Erythrocyte distribution width (RBC) [Ratio] 13.2 % Normal 11.5-15.0 [facility] Comment on above: Order Comment: Speci men Type: BLOOD SPECIMENOrdering Facility: [facility] Address: [address] [place] [address] Performed By: #### 5 8410-2 ####[facility] [id number] [address] [place] Hematocrit (Bld) [Volume fraction] 43.8 % Normal 39.0-51.0 [facility] Comment on above: Order Comment: Speci men Type: BLOOD SPECIMENOrdering Facility: [facility] Address: [address] [place] [address] Performed By: #### 5 8410-2 ####[facility] [id number] [address] [place] Hemoglobin (Bld) [Mass/Vol] 14.3 g/dL Normal 13.0-17.0 [facility] Comment on above: Order Comment: Speci men Type: BLOOD SPECIMENOrdering Facility: [facility] Address: [address] [place] [address] Performed By: #### 5 8410-2 ####[facility] [id number] [place] [address] [place] MCH (RBC) [Entitic mass] 30.0 pg Normal 26.0-34.0 [facility] Comment on above: Order Comment: Speci men Type: BLOOD SPECIMENOrdering Facility: [facility] Address: [address] [place] [address] Performed By: #### 5 8410-2 ####[facility] LABIA [id number] [place] [address] [place] MCHC (RBC) [Mass/Vol] 32.6 g/dL Normal 30.5-36.0 [facility] Comment on above: Order Comment: Speci men Type: BLOOD SPECIMENOrdering Facility: [facility] Address: [address] [place] [address] Performed By: #### 5 8410-2 ####[facility] LABIA [id number] [place] [address] [place] MCV (RBC) [Entitic vol] 92.0 fL Normal 80.0-100.0 [facility] Comment on above: Order Comment: Speci men Type: BLOOD SPECIMENOrdering Facility: [facility] Address: [address] [place] [address] Performed By: #### 5 8410-2 ####[facility] [id number] [place] [address] [place] Nucleated RBC (Bld) [#/Vol] 10*3/uL Normal <0.01 [facility] Comment on above: Order Comment: Speci men Type: BLOOD SPECIMENOrdering Facility: [facility] Address: [address] [place] [address] Performed By: #### 5 8410-2 ####[facility] LABIA [id number] [place] [address] [place] Platelet mean volume (Bld) [Entitic vol] 8.4 fL Low 9.0-12.7 [facility] Comment on above: Order Comment: Speci men Type: BLOOD SPECIMENOrdering Facility: [facility] Address: [address] [place] [address] Performed By: #### 5 8410-2 ####[facility] LABIA [id number] [place] [address] [place] Platelets (Bld) [#/Vol] 338 10*3/uL Normal 150-400 [facility] Comment on above: Order Comment: Speci men Type: BLOOD SPECIMENOrdering Facility: [facility] Address: [address] [place] [address] Performed By: #### 5 8410-2 ####[facility] LABIA [id number] [place] [address] [place] RBC (Bld) [#/Vol] 4.76 10*6/uL Normal 4.20-6.00 [facility] Comment on above: Order Comment: Speci men Type: BLOOD SPECIMENOrdering Facility: [facility] Address: [address] [place] [address] Performed By: #### 5 8410-2 ####[facility] [id number] [place] [address] [place] WBC (Bld) [#/Vol] 9.85 10*3/uL Normal 3.70-11.00 [facility] Comment on above: Order Comment: Speci men Type: BLOOD SPECIMENOrdering Facility: [facility] Address: [address] [place] [address] Performed By: #### 5 8410-2 ####[facility] LABIA [id number] [place] [address] [place] CNOVon 11-03-2023 CNOV Office Visit (UROLMN ) SUKHDEEP GAMINO ([id number]) 1960 M Date Time Provider Department 11/03/23 3:00 PM JOHN HUMPHREYS During your visit today, we recorded the following information about you: John Humphreys PA 11/03/2023 3:06 PM Signed [facility] PRE-OP NOTE Sukhdeep Gamino is a 62 year old male. Pre-op Date: November 03, 2023 Date of Procedure: 11/05/2023 Does the patient have an active COVID-19 test in [facility]? N/A Procedure/Surgery: RALP Diagnosis: prostate cancer Primary Surgeon: MD Bah Robert There were no vitals taken for this visit. Pain Assessment: Are you currently having pain? no Surgical Guide Book Status: Patient given book today. Dialysis Guide Book Status: N/A Allergies Reviewed: Yes Medications Reviewed: Yes Is patient currently on oral steroids?: No Has the patient had a UTI in the past month?: No. Does the patient have any artificial joints (last 2 years), metal parts, pacemakers or cardiac/ureteral stents in place?: Yes, right hip replacement, Does the patient have diabetes?: No Is the patient routinely taking anticoagulants?: Yes. Patient stopped coumadin on on 10/31. Will continue taking aspirin Can the patient have an IV put in either arm?: Yes Urine Dip Complete?: Yes URINE CULTURE COMPLETE?: ordered Ostomy/Stoma Nurse appointment made/completed: N/A IMPACT/Medical Clearance: Cleared per IMPACT - Yes [facility] Clinic: Cleared per [facility] - N/A All testing on cureform has been scheduled: Yes Consent Signed: Consent not in [facility]. Surgeon notified via staff mesage. DOS Orders Placed and Signed: Yes. Pre-op HANDP Done by Impact: Yes. PATIENT INSTRUCTIONS FOR SURGERY 1.) DO NOT HAVE ANYTHING TO EAT AFTER MIDNIGHT THE DAY BEFORE SURGERY except for certain morning medications as instructed by the doctor. Candy, mints, gum, and smoking are NOT permitted. You may drink clear liquids (Sprite, water, cristina daja) up to two hours before your arrival time on the day of surgery. 2.) Medications to be taken on the morning of surgery with a few sips of water: per IMPACT 3.) Please bring all your prescribed inhalers (if you have any you normally take) to the hospital. 4.) Arrival time: Call for arrival. 5.) Prep given: No 6.) Lovenox instructions given: N/A 7.) Patient reminded that surgery time provided day before surgery is tentative based on potential changes with transplants. Recommendations: This patient is optimally prepared for surgery pending LABS. RHEA ReevesC Electronically signed Referring Provider: ROXANA BAH [[id number]] Allergies As of Date: 11/03/2023 (No Known Allergies) Date Reviewed: 11/03/2023 Reviewed by: John Humphreys PA - Fully Assessed Reason for Visit: Pre-Op Teaching [134] Primary Visit Diagnosis:Pre-op testing [Z01.818] Other Visit Diagnoses:Prostate cancer (HCC) [C61] Prostate disease [N42.9] Order(s):URINE CULTURE [SQURCUL] Order #: [id number] Prescriptions as of 11/03/2023 - aspirin, enteric coated (ASPIRIN, ENTERIC COATED) 81 mg EC tablet in the morning. - pravastatin (PRAVACHOL) 40 mg tablet Take 40 mg by mouth daily at bedtime. - warfarin (COUMADIN) 6 mg tablet Take 1 tablet by mouth every afternoon. - dilTIAZem CD (CARDIZEM CD, CARTIA XT) 120 mg 24 hr capsule TAKE 1 CAPSULE BY MOUTH ONCE DAILY DIRECTED - carvedilol (COREG) 25 mg tablet TAKE 1 TABLET BY MOUTH IN THE MORNING AND AT BEDTIME - lisinopril (ZESTRIL) 10 mg tablet Take 10 mg by mouth once daily. - tamsulosin (FLOMAX) 0.4 mg Take 1 capsule by mouth every afternoon. - fluticasone (FLONASE) 50 mcg/actuation nasal spray 1 [place]. - bicalutamide (CASODEX) 50 mg tablet Take 1 tablet by mouth once daily. Problem List As Of Date 11/03/2023 Noted Resolved Chronic ischemic heart disease [I25.9] 01/02/2023 Chronic systolic (congestive) heart failure (HC*01/02/2023 Mixed hyperlipidemia [E78.2] 01/02/2023 Asthma [J45.909] 03/03/2012 Paroxysmal atrial fibrillation (HCC) [I48.0] 03/03/2012 Cardiomyopathy in diseases classified elsewhere*01/02/2023 Benign prostatic hyperplasia with urinary obstr*08/10/2023 Essential hypertension [I10] 03/03/2012 Malignant neoplasm of prostate (HCC) [C61] 08/31/2023 Encounter Status:Closed by JOHN HUMPHREYS on 11/03/23 Normal [facility] CONFIRM BLOOD TYPEon 024 ABO A Normal [facility] Comment on above: Order Comment: Speci men Type: BLOOD SPECIMENOrdering Facility: [facility] Address: [address] [place] [address] Performed By: #### C ONABO ####[facility] BLOOD BANKCLIA [id number] [place] [address] [place] Rh Nom (Bld) Positive Normal [facility] Comment on above: Order Comment: Speci men Type: BLOOD SPECIMENOrdering Facility: [facility] Address: [address] [place] [address] Performed By: #### C ONABO ####CC [facility] BLOOD BANKCLIA [id number] [place] [address] [place] Comprehensive metabolic 2000 panelon 11-03-2023 Albumin [Mass/Vol] 4.5 g/dL Normal 3.9-4.9 [facility] Comment on above: Order Comment: Speci men Type: BLOOD SPECIMENOrdering Facility: [facility] Address: [address] [place] [address] Performed By: #### 2 4323-8 ####[facility] LABCLIA [id number] [place] [address] [place] ALP [Catalytic activity/Vol] 97 U/L Normal 38-113 [facility] Comment on above: Order Comment: Speci men Type: BLOOD SPECIMENOrdering Facility: [facility] Address: [address] [place] [address] Performed By: #### 2 4323-8 ####[facility] LABCLIA [id number] [place] [address] [place] ALT [Catalytic activity/Vol] 19 U/L Normal 10-54 [facility] Comment on above: Order Comment: Speci men Type: BLOOD SPECIMENOrdering Facility: [facility] Address: [address] [id number] Performed By: #### 2 4323-8 ####[facility] LABCLIA [id number] [address] [address] [place] Anion gap [Moles/Vol] 12 mmol/L Normal 9-18 [facility] Comment on above: Order Comment: Speci men Type: BLOOD SPECIMENOrdering Facility: [facility] Address: [address] [place] [address] Performed By: #### 2 4323-8 ####[facility] LABCLIA [id number] [place] [address] [place] AST [Catalytic activity/Vol] 17 U/L Normal 14-40 [facility] Comment on above: Order Comment: Speci men Type: BLOOD SPECIMENOrdering Facility: [facility] Address: [address] [place] [address] Performed By: #### 2 4323-8 ####[facility] LABCLIA [id number] [place] [address] [place] Bilirubin [Mass/Vol] 0.8 mg/dL Normal 0.2-1.3 [facility] Comment on above: Order Comment: Speci men Type: BLOOD SPECIMENOrdering Facility: [facility] Address: [address] [place], [place] [id number] Performed By: #### 2 4323-8 ####[facility] LABCLIA [id number] [place] [address] [place] Calcium [Mass/Vol] 10.1 mg/dL Normal 8.5-10.2 [facility] Comment on above: Order Comment: Speci men Type: BLOOD SPECIMENOrdering Facility: [facility] Address: [address] [place], [place] [address] Performed By: #### 2 4323-8 ####[facility] LABCLIA [id number] [place] [address] [place] Chloride [Moles/Vol] 104 mmol/L Normal 97-105 [facility] Comment on above: Order Comment: Speci men Type: BLOOD SPECIMENOrdering Facility: [facility] Address: [address] [place] [address] Performed By: #### 2 4323-8 ####[facility] LABCLIA [id number] [place] [address] [place] CO2 [Moles/Vol] 25 mmol/L Normal 22-30 [facility] Comment on above: Order Comment: Speci men Type: BLOOD SPECIMENOrdering Facility: [facility] Address: [address] [place] [address] Performed By: #### 2 4323-8 ####[facility] LABCLIA [id number] [place] [address] [place] Creatinine [Mass/Vol] 1.29 mg/dL High 0.73-1.22 [facility] Comment on above: Order Comment: Speci men Type: BLOOD SPECIMENOrdering Facility: [facility] Address: [address] [place] [address] Performed By: #### 2 4323-8 ####[facility] LABIA [id number] [place] [address] [place] Creatinine and Glomerular filtration rate.predicted panel (S/P/Bld) 62 mL/min/1.73m??? Normal >=60 [facility] Comment on above: Order Comment: Speci men Type: BLOOD SPECIMENOrdering Facility: [facility] Address: [address] [place] [address] Result Comment: Jamila mated Glomerular Filtration Rate (eGFR) is calculated using the 2020 CKD-EPI creatinine equation. This equation utilizes serum creatinine, sex, and age as parameters. The creatinine assay has traceable calibration to isotope dilution-mass spectrometry. Refer to KDIGO guidelines for clinical interpretation. In patients with unstable renal function, e.g. those with acute kidney injury, the eGFR may not accurately reflect actual GFR. Performed By: #### 2 4323-8 ####[facility] LABIA [id number] [place] [address] [place] Glucose [Mass/Vol] 105 mg/dL High 74-99 [facility] Comment on above: Order Comment: Speci men Type: BLOOD SPECIMENOrdering Facility: [facility] Address: [address] [place] [address] Result Comment: The [place] [employer] Association (ADA) provides guidance for cutoff values for fasting glucose and random glucose. The ADA defines fasting as no caloric intake for at least 8 hours. Fasting plasma glucose results between 100 to 125 mg/dL indicate increased risk for diabetes (prediabetes). Fasting plasma glucose results greater than or equal to 126 mg/dL meet the criteria for diagnosis of diabetes. In the absence of unequivocal hyperglycemia, results should be confirmed by repeat testing. In a patient with classic symptoms of hyperglycemia or hyperglycemic crisis, random plasma glucose results greater than or equal to 200 mg/dL meet the criteria for diagnosis of diabetes. Reference: Standards of Medical Care in Diabetes 2016, [place] [employer]. Diabetes Care. 2016.39(Suppl 1). Performed By: #### 2 4323-8 ####[facility] LABIA [id number] [place] [address] [place] Potassium [Moles/Vol] 4.8 mmol/L Normal 3.7-5.1 [facility] Comment on above: Order Comment: Homeri men Type: BLOOD SPECIMENOrdering Facility: [facility] Address: [address] [place] [address] Performed By: #### 2 4323-8 ####[facility] LABIA [id number] [place] [address] [place] Protein [Mass/Vol] 7.2 g/dL Normal 6.3-8.0 [facility] Comment on above: Order Comment: Homeri men Type: BLOOD SPECIMENOrdering Facility: [facility] Address: [address] [id number] Performed By: #### 2 4323-8 ####[facility] LABCLIA [id number] [place] [id number] [place] Sodium [Moles/Vol] 141 mmol/L Normal 136-144 [facility] Comment on above: Order Comment: Speci men Type: BLOOD SPECIMENOrdering Facility: [facility] Address: [address] [place] [address] Performed By: #### 2 4323-8 ####[facility] LABCLIA [id number] [place] [address] [place] Urea nitrogen [Mass/Vol] 25 mg/dL High 9-24 [facility] Comment on above: Order Comment: Speci men Type: BLOOD SPECIMENOrdering Facility: [facility] Address: [address] [place] [address] Performed By: #### 2 4323-8 ####[facility] LABCLIA [id number] [place] [id number] [place] ECG COMPLETEon 11-03-2023 ECG COMPLETE Ventricular Rate : 9 7 BPM QRS Duration : 80 ms Q-T Interval : 364 ms QTC Calculation(Bazett) : 462 ms Calculated R [place] : -36 degrees Calculated T [place] : 5 degrees ATRIAL FIBRILLATION LEFT AXIS DEVIATION LOW VOLTAGE ANTEROSEPTAL MYOCARDIAL INFARCTION , AGE UNDETERMINED ABNORMAL ECG Confirmed by MD NIVIA, PhD, AGGIE ([id number]) on 11/18/2023 5:00:43 PM NAME : SUKHDEEP GAMINO PID : [id number] : 1960 Gender : Male Race : Unknown ORD : [id number] Procedure Date : Nov 03 2023 15:54:05 Edit Date : Nov 18 2023 17:00:49 Diagnosis: ATRIAL FIBRILLATION LEFT AXIS DEVIATION LOW VOLTAGE ANTEROSEPTAL MYOCARDIAL INFARCTION , AGE UNDETERMINED ABNORMAL ECG Confirmed by MD NIVIA, PhD, AGGIE ([id number]) on 11/18/2023 5:00:43 PM Test Reason : Location : [facility] : [facility] Overread By : MD NIVIA, PhD,AGGIE Edited By : MD NIVIA, PhD,AGGIE Referred By : ROXANA BAH Acquired by : NIELS MARQUEZ [facility] ECHOon 11-03-2023 Echocardiography Echocardiography Rep ort: Transthoracic Echo [facility] J35 Date of service: 11/03/2023 3:14:37 PM SPINNER Ordering physician: ROXANA BAH Indication: Pre-op non-cardiac, H/o Afib, HF Technologist: Ira Mitchell Interpreting physician: Cesia Rothman MD PATIENT: Name: SUKHDEEP GAMINO : 1960 Age: 62 years Gender: M History of arrhythmia, hypertension, cardiomyopathy and dyslipidemia. Primary rhythm: atrial fib. Height: 177.80 cm BSA: 2.08 m Weight: 87.25 kg BMI: 27.6 kg/m Heart rate 94 bpm Blood pressure 117/82 mmHg Color Doppler was utilized to interrogate the cardiac valves assessed and spectral Doppler was utilized to determine the flow velocities and pressure gradients reported in this exam. MEASUREMENTS: Value Indexed Normal Max aortic dimension 4.1 cm Ao < 3.8 Left atrial volume 133 ml (biplane A-L) 64 ml/m Perfecto <= 34 LV ID (diastole) 4.5 cm (2D) 2.16 cm/m LV ID (systole) 2.8 cm (2D) 1.33 cm/m IVS, leaflet tips 1.1 cm (2D) Posterior wall thickness 1.0 cm (2D) Left ventricular mass 163 g (2D) 78 g/m LV stroke volume 51 ml (2D biplane) LV end diastolic volume 95 ml (2D biplane) 45.7 ml/m 34<=EDVi<75 LV end systolic volume 44 ml (2D biplane) 21.3 ml/m Ejection Fraction 53 % (2D biplane) EF > 52 FINDINGS: LEFT VENTRICLE The left ventricle is normal in size. Left ventricular systolic function is normal. Left ventricular diastolic function was not evaluated due to AF. Wall Motion: All scored segments are normal. RIGHT VENTRICLE The right ventricle is normal in size. Right ventricular systolic function is normal. RV systolic tissue Doppler velocity is 18.0 cm/s. Estimated right ventricular systolic pressure is likely underestimated due to a weak or incomplete tricuspid regurgitation signal and is, at least, 21 mmHg consistent with normal pulmonary artery pressures. Estimated right atrial pressure is 3 mmHg based on IVC assessment. LEFT ATRIUM The left atrial cavity is dilated. RIGHT ATRIUM The right atrial cavity is dilated. Inferior Vena Cava: The inferior vena cava appears normal measuring 2.0 cm. The vessel decreases greater than 50 percent with inspiration. MITRAL VALVE There is trace (trace - 1+) mitral valve regurgitation. There is mild thickening. TRICUSPID VALVE There is trace tricuspid valve regurgitation. There is no thickening. The hepatic venous pattern showed normal systolic flow. AORTIC VALVE There is trace aortic valve regurgitation. Tricuspid aortic valve. There is mild thickening. PULMONIC VALVE There is no pulmonic valve regurgitation. There is no thickening. AORTA The visualized aorta is dilated. Measurements - Sinus: 3.4 cm. Mid ascending aorta 4.1 cm. Distal ascending aorta 4.0 cm. PULMONARY ARTERIES The pulmonary arteries are unseen or not interrogated. INTERVENTRICULAR SEPTUM There is no flow through the interventricular septum as detected by Doppler. PERICARDIUM There is a trivial pericardial effusion. There is an epicardial fat pad. CONCLUSIONS: - Exam indication: Pre-op non-cardiac, H/o Afib, HF - The left ventricle is normal in size. Left ventricular systolic function is normal. EF = 53 5% (2D biplane) Left ventricular diastolic function was not evaluated due to AF. - The right ventricle is normal in size. Right ventricular systolic function is normal. - The left atrial cavity is dilated. - The right atrial cavity is dilated. - The visualized aorta is dilated with a maximal dimension of 4.1 cm. - The patient has not had a prior CC echocardiographic exam for comparison. * * * Final * * * CC [email or web address] [facility] Image : [id number] [employer] Normal [facility] HISTORY PHYSICALon HISTORY PHYSICAL HNO ID: [id number] Author: HAILY NUNEZ PA-C Service: ? Author Type: Physician Benefits Assistant Type: H&P Filed: 11/04/2023 12:33 Note Text: HISTORY AND PHYSICAL EXAMINATION SERVICE DATE: 11/03/2023 SERVICE TIME: 12:29 PM PRIMARY CARE PHYSICIAN: Alek Fatima MD Assessment Patient has the following medical conditions which may affect zehra-operative course: Cardiomyopathy in diseases classified elsewhere (HCC) Assessment: Follows cardiology Dr. Lozano, last OV 01/2023. Compliant on medications. Appears euvolemic, denies new or worsening cardiac symptoms. -ECHO 2020: LVEF 40% Chronic ischemic heart disease Assessment: Denies any new or worsening cardiac symptoms. Follows [facility] in [place] last OV 01/2023. Reports compliance to medication. Denies any history of stents, CABG, reports [facility] x3, most recent ~2018. Recent cardiac testing . -MD Cardiac Perfusion Test 11/03/2023: negative for ischemia -Denies any CP, SOB, dyspnea, dizziness, palpitations, edema or syncope Chronic systolic (congestive) heart failure (HCC) Assessment: Follows cardiology Dr. Huff, last OV 01/2023. Compliant on medications. Appears euvolemic, denies new or worsening cardiac symptoms. -ECHO 2020: LVEF 40% Essential hypertension Assessment: Stable, compliant on Carvedilol, Diltiazem and Lisinopril. Follows with PCP. Last 3 Encounter BP Readings: Date: BP: 11/03/2023 117/82 10/02/2023 154/96 Mixed hyperlipidemia Assessment; stable on Pravastatin Paroxysmal atrial fibrillation (HCC) Assessment: Follows [employer] Dr. Lozano , last OV 01/2023. Reports compliance to medication, Carvedilol, Diltiazem. On OAC Coumadin. Denies any dizziness, syncope, palpitations, CP, SOB. Ejection Fraction: No results found CHADS2-Vasc Score Breakdown 3 Total Score 1 History of CHF 1 History of hypertension 1 History of vascular disease Malignant neoplasm of prostate (HCC) Assessment: scheduled for radical prostatectomy on 11/05/2023 Asthma Assessment: follows with PCP, does not currently use inhalers. Undergoes steroid injections every 3 months. Denies any new or worsening pulmonary symptoms. SpO2 99% RA, lungs CTAB [place] Activity Status Index: METS: Climb a flight of stairs or walk up a hill (5.50 METs) DASI Score: 5.5 Patient denies any chest pain or undue shortness of breath with the above physical activity. Clinical Frailty Scale: 3. Well, with treated comorbid disease STOP-Bang Score: Has or is being treated for high blood pressure Patient over 50 years old Male patient Denies snoring loudly Denies feeling tired, fatigued, or sleepy during the daytime Has not been observed to stop breathing or choking/gasping during sleep BMI less than or equal to 35 kg/m2 Does not have a large neck STOP-Bang Score: 3 [id number] Score: Age: <65 Sex: male CHF history: Yes Hypertension history: Yes Stroke/TIA/thromboembolism history: No Vascular disease history: Yes Diabetes history: No [id number] Score: 3 ARISCAT Score: Age: 51-80 Preoperative SpO2: >=96% Preoperative anemia: Yes Surgical incision: peripheral Duration of surgery: >3 hrs Emergency procedure: No ARISCAT Score: ANESTHESIA FINDINGS: Intubation History: No history of difficult intubation. No abnormal airway history Significant Anesthesia Considerations: none Airway History: No history of difficult airway No abnormal airway history I - PHYSICAL EVALUATION AIRWAY Patient intubated: No. Tracheostomy tube not present Mallampati: II. TM distance: >3 FB. Neck ROM: full ROM without neurological symptoms. Mouth opening: adequate. Short neck: no. Thick neck: no Macias present: no Microretrognathia/Micronagt hia/Recessed Chin: No DENTAL Dental findings: broken tooth and missing tooth/teeth. II - ANESTHESIA PLAN Anesthetic Plan: other Anesthetic plan additional comments: *PACC/TCI - anesthesia choice. Beta José Miguel Monitoring Plan Post Procedure Analgesic Plan Prepared for Surgery: optimally prepared for surgery, pending [see comment]. Pre op labs, EKG, ECHO, stress test per surgical team DOS exam Patient instructed to hold Coumadin 5 days prior to surgery, per patient states he was told it was okay Will fax request to Dr. Lozano's office for cardiac cath records CONSULTS: Patient does not require consults for optimization at this time Planned Anesthetic: other anesthesia choice The Following Tests/Procedures Have Been Initiated: No orders of the defined types were placed in this encounter. Addendum November 04, 2023 Pre op ECHO, EKG and stress test reviewed. ECHO with EF 53%, stress test negative for ischemia. Pre op lab work and EKG reviewed and acceptable for procedure. Patient is optimized for scheduled surgery. Haily Nunez PA-C REASON FOR VISIT: Sukhdeep Gamino is a 62 year old male who is scheduled for Procedure(s): ROBOTIC LAPAROSCOPIC RE (more content not included)... Normal [facility] CARDIAC PERF STRESS/PHARM on 11-03-2023 MD CARDIAC PERF STRESS/PHARM * * *Final Report* * * DATE OF EXAM: Nov 03 2023 11:05AM [facility] 0006 - MD CARDIAC PERF STRESS/PHARM / PROCEDURE REASON: Malignant neoplasm of prostate (HCC) * * * * Physician Interpretation * * * * Stress Turpentine Distiller Report: [facility] ANALILIA-2 Date of service: 11/03/2023 9:29:00 AM Supervising physician: Prasanna Lin MD PATIENT: Name: SUKHDEEP GAMINO Age: 62 years Gender: M The supervising physician was in the department and immediately available. * * * Final * * * PATIENT: Name: SUKHDEEP GAMINO Age: 62 years Gender: M CONCLUSIONS: 1. SPECT Perfusion Study: Normal. 2. There is no scintigraphic evidence for inducible ischemia. 3. No evidence of scarred myocardium. 4. Left ventricle is normal in size. The left ventricle systolic function is normal. 5. Right ventricle is normal in size. The right ventricle systolic function is normal. 6. This is a low risk scan. Gated Stress FBP Gated Rest FBP LVEF % 61 59 Prior Study Comparison No prior nuclear cardiology exam available for comparison. Nuclear Med Report:1-Day Gated SPECT Myocardial Perfusion with Regadenoson Stress: Myocardial perfusion imaging was performed at rest 30 minutes following the IV injection of the radiotracer. The patient received 0.4 mg of regadenoson, via rapid IV push, immediately followed by radiotracer IV. Gated post stress tomographic imaging was performed 30 to 60 minutes later. See administered radiotracer and doses below. [facility] Date of service: 11/03/2023 9:29:00 AM Ordering Physician: ROXANA BAH. Requesting Physician: ROXANA BAH Indication: Preop eval for noncard surg with high risk, poor exercise tolerance Fellow: Jorge L Booth MD Interpreting physician: Prasanna Lin MD Height: 177.80 cm BSA: 2.07 m? Weight: 87.09 kg BMI: 27.5 kg/m? CT Dose-Length Product(DLP): 20.0 mGy * cm. CT Dose Reduction Employed: Yes. Exam Type: Rest Stress Radiopharm: Tc-99m Tetrofosmin Tc-99m Tetrofosmin Dosage(mCi): 11.8 31.2 Atten Correction: performed Stress Agent: Regadenoson 0.4mg Supply provided from [facility] Resting Blood Press: 140/70 mmHg Image Quality The overall study imaging quality was deemed to be good. FINDINGS: Left Ventricle Wall Motion: Stress IR:3D - All segments are normal. Rest IR:3D - Gated Stress FBP - Reversibility - Gated Rest FBP - Rest IR:3D:SC - Stress IR:3D Stress IR:3D Gated Stress FBP Gated Rest FBP LVEF: 61 % 59 % ED Volume: 117 ml 107 ml ES Volume: 46 ml 44 ml TID: 1.04 Perfusion Findings Stress IR:3D - Summed Score=0 All segments demonstrate normal perfusion. Rest IR:3D - Summed Score=0 All segments demonstrate normal perfusion. Stress IR:3D Rest IR:3D Summed Score=0 Summed Score=0 LEFT VENTRICLE The left ventricle is normal in size. Left ventricular systolic function is normal. Right Ventricle The right ventricle is normal in size. Right ventricle systolic function is normal. Stress Test Findings: There is no scintigraphic evidence for inducible ischemia. There is no evidence of scarring. * * * Final * * * [facility] Report: [facility] Date of service: 11/03/2023 9:29:00 AM [facility] interpreting physician: Prasanna Lin MD PATIENT: Name: SUKHDEEP GAMINO Age: 62 years Gender: M 1. Incidental Findings from limited non-diagnostic CTAC: - Coronary calcifications visualized. * * * Final * * * Stress ECG Report: [place] [id number] Date of service: 11/03/2023 9:29:00 AM Ordering physician: ROXANA BAH employment law specialist: Angela Duarte MS, CEP Benefits Assistant: Maisha Sesay Fellow: Jorge L Mckeon MD and Eldon Booth MD Interpreting physician: Prasanna Lin MD Patient name: SUKHDEEP GAMINO Age: 62 years Gender: M Height: 177.80 cm BSA: 2.07 m? Weight: 87.09 kg BMI: 27.5 kg/m? Indication: Encounter for pre-procedural cardiovascular examination for non-cardiac surgery Stress ECG Conclusion: Conclusion: Normal Comments: Resting ECG with AFIB is noted Stress ECG Summary: The patient's resting heart rate was 81 bpm and blood pressure was 140/70 mmHg. The test was terminated due to end of protocol. No symptoms provoked during stress. The maximum heart rate was 100 bpm, which is 64% of the predicted heart rate for age. Peak blood pressure was 150/84 mmHg. The double product achieved was [id number]. Medications: Last Used COREG 3 Hours CARDIZ (more content not included)... Normal [facility] [place] Heart Perfusion W stress and W radionuclide Yogi 11-03-2023 [facility] PT panel Coag (PPP)on 2023 INR Coag (PPP) [Relative time] 1.3 {INR} Normal 0.9-1.3 [facility] Comment on above: Order Comment: Speci men Type: BLOOD SPECIMENOrdering Facility: [facility] Address: [address] [place] [address] Result Comment: Tiffani min K Antagonist (VKA) Therapeutic Range: INR 2 to 3 (Target INR of 2.5) Note: For patients treated with VKA drugs, such as warfarin, the [place] [employer] 2012 Guideline recommends a therapeutic INR range of 2 to 3 (target INR of 2.5). This recommendation includes high-risk patients with antiphospholipid syndrome with previous arterial or venous thromboembolism, current-generation mechanical or bioprosthetic aortic heart valve replacement. Note: Patients with mechanical aortic valve replacement and additional risk factors for thromboembolic events (atrial fibrillation, previous thromboembolism, LV dysfunction, hypercoagulable conditions) or an older generation mechanical AVR (i.e., ball in-Cage) or any mechanical MVR should have a INR therapeutic range of 2.5 to 3.5 (target INR of 3). Isaias GH, et al. Chest 2012, 141:7S-47S Ezekiel RA, et al. [facility] 2017, 70: 252-289 Performed By: #### 1 4979-9, 21874-2 ####[facility] LABCLIA [id number] [place] [address] [place] PT Coag (PPP) [Time] 13.2 s High 9.7-13.0 [facility] Comment on above: Order Comment: Speci men Type: BLOOD SPECIMENOrdering Facility: [facility] Address: [address] [place] [address] Performed By: #### 1 4979-9, 42941-7 ####[facility] LABCLIA [id number] [place] [address] [place] TYPE AND SCREEN,30 DAYon ABO A Normal [facility] Comment on above: Order Comment: Speci men Type: BLOOD SPECIMENOrdering Facility: [facility] Address: [address] [place] [address] Performed By: #### T [id number] ####CC [facility] BLOOD BANKCLIA [id number] [address] [place] HISTORICAL AB SCR STATUS Negative Normal [facility] Comment on above: Order Comment: Speci men Type: BLOOD SPECIMENOrdering Facility: [facility] Address: [address] [place] [address] Performed By: #### T [id number] ####CC MAIN BLOOD BANKIA [id number] [place] [address] [place] Rh Nom (Bld) Positive Normal [facility] Comment on above: Order Comment: Speci men Type: BLOOD SPECIMENOrdering Facility: [facility] Address: [address] [place] [address] Performed By: #### T [id number] ####CC MAIN BLOOD BANKIA [id number] [place] [address] [place] URINALYSIS, REFLEX MICROSCOP ICon 11-03-2023 Bacteria LM.HPF (Urine sed) [#/Area] Negative Negative /HPF [facility] Bilirubin Ql (U) Negative Negative [facility] Clarity (Unsp spec) Clear Clear [facility] Color (U) Yellow Yellow [facility] Epithelial cells LM.HPF (Urine sed) [#/Area] None Seen [facility] Glucose Test strip (U) [Mass/Vol] Negative Negative [facility] Hemoglobin Ql (U) Negative Negative [facility] Hyaline casts (Urine sed) [#/Area] 1-3 /LPF Abnormal 0 /LPF [facility] Ketones Ql (U) Negative Negative [facility] Leukocyte esterase Test strip Ql (U) Trace Abnormal Negative [facility] Nitrite Ql (U) Negative Negative [facility] pH (U) 5.5 [pH] <8.5 [facility] Protein (U) [Mass/Vol] Negative Negative [facility] RBC LM.HPF (Urine sed) [#/Area] 0-2 /HPF 0-2 /HPF [facility] Specific gravity (U) [Rel density] 1.023 1.005 - 1.030 [facility] Urobilinogen Ql (U) 0.2 EU/dL 0.2-1.0 EU/dL [facility] WBC LM.HPF (Urine sed) [#/Area] 0-5 /HPF 0-5 /HPF [facility] Bacteria LM.HPF (Urine sed) [#/Area] Negative Normal Negative [facility] Comment on above: Order Comment: Speci men Type: URINE SPECIMENOrdering Facility: [facility] Address: [address] [place] [address] Performed By: #### L [id number] ####[facility] LABCLIA [id number] [place] [address] [place] Bilirubin Ql (U) Negative Normal Negative [facility] Comment on above: Order Comment: Speci men Type: URINE SPECIMENOrdering Facility: [facility] Address: [address] [place] [address] Performed By: #### L [id number] ####[facility] LABCLIA [id number] [place] [address] [place] Clarity (Unsp spec) Clear Normal Clear [facility] Comment on above: Order Comment: Speci men Type: URINE SPECIMENOrdering Facility: [facility] Address: [address] [place] [address] Performed By: #### L [id number] ####[facility] LABCLIA [id number] [place] [address] [place] Color (U) Yellow Normal Yellow [facility] Comment on above: Order Comment: Speci men Type: URINE SPECIMENOrdering Facility: [facility] Address: [address] [place] [address] Performed By: #### L [id number] ####[facility] LABIA [id number] [place] [address] [place] Epithelial cells LM.HPF (Urine sed) [#/Area] None Seen Normal [facility] Comment on above: Order Comment: Speci men Type: URINE SPECIMENOrdering Facility: [facility] Address: [address] [place] [address] Performed By: #### L [id number] ####[facility] LABCLIA [id number] [place] [address] [place] Glucose Test strip (U) [Mass/Vol] Negative Normal Negative [facility] Comment on above: Order Comment: Speci men Type: URINE SPECIMENOrdering Facility: [facility] Address: [address] [place] [address] Performed By: #### L [id number] ####[facility] LABCLIA [id number] [place] [address] [place] Hemoglobin Ql (U) Negative Normal Negative [facility] Comment on above: Order Comment: Speci men Type: URINE SPECIMENOrdering Facility: [facility] Address: [address] [place] [address] Performed By: #### L [id number] ####[facility] LABCLIA [id number] [place] [address] [place] Hyaline casts (Urine sed) [#/Area] 1-3 /LPF Abnormal 0 /LPF [facility] Comment on above: Order Comment: Speci men Type: URINE SPECIMENOrdering Facility: [facility] Address: [address] [place] [address] Performed By: #### L [id number] ####[facility] LABCLIA [id number] [place] [address] [place] Ketones Ql (U) Negative Normal Negative [facility] Comment on above: Order Comment: Speci men Type: URINE SPECIMENOrdering Facility: [facility] Address: [address] [place] [address] Performed By: #### L [id number] ####[facility] LABCLIA [id number] [place] [address] [place] Leukocyte esterase Test strip Ql (U) Trace Abnormal Negative [facility] Comment on above: Order Comment: Speci men Type: URINE SPECIMENOrdering Facility: [facility] Address: [address] [place] [address] Performed By: #### L [id number] ####[facility] LABCLIA [id number] [place] [address] [place] Nitrite Ql (U) Negative Normal Negative [facility] Comment on above: Order Comment: Speci men Type: URINE SPECIMENOrdering Facility: [facility] Address: [address] [place] [address] Performed By: #### L [id number] ####[facility] LABCLIA [id number] [place] [address] [place] pH (U) 5.5 [pH] Normal <8.5 [facility] Comment on above: Order Comment: Speci men Type: URINE SPECIMENOrdering Facility: [facility] Address: [address] [place] [address] Performed By: #### L [id number] ####[facility] LABIA [id number] [place] [address] [place] Protein (U) [Mass/Vol] Negative Normal Negative [facility] Comment on above: Order Comment: Speci men Type: URINE SPECIMENOrdering Facility: [facility] Address: [address] [place] [address] Performed By: #### L [id number] ####[facility] LABIA [id number] [place] [address] [place] RBC LM.HPF (Urine sed) [#/Area] 0-2 /HPF Normal 0-2 /HPF [facility] Comment on above: Order Comment: Speci men Type: URINE SPECIMENOrdering Facility: [facility] Address: [address] [place] [address] Performed By: #### L [id number] ####[facility] LABCLIA [id number] [place] [address] [place] Specific gravity (U) [Rel density] 1.023 Normal 1.005-1.030 [facility] Comment on above: Order Comment: Speci men Type: URINE SPECIMENOrdering Facility: [facility] Address: [address] [place] [address] Performed By: #### L [id number] ####[facility] LABCLIA [id number] [place] [address] [place] Urobilinogen Ql (U) 0.2 EU/dL Normal 0.2-1.0 EU/dL [facility] Comment on above: Order Comment: Speci men Type: URINE SPECIMENOrdering Facility: [facility] Address: [address] [place] [address] Performed By: #### L [id number] ####[facility] [id number] [place] [address] [place] WBC LM.HPF (Urine sed) [#/Area] 0-5 /HPF Normal 0-5 /HPF [facility] Comment on above: Order Comment: Speci men Type: URINE SPECIMENOrdering Facility: [facility] Address: [address] [place] [address] Performed By: #### L [id number] ####[facility] [id number] [place] [address] [place] aPTT PPPon 11-03-2023 aPTT Coag (PPP) [Time] 27.4 s Normal 23.0-32.4 [facility] Comment on above: Order Comment: Speci men Type: BLOOD SPECIMENOrdering Facility: [facility] Address: [address] [place] [address] Performed By: #### 1 4979-9, 91408-6 ####[facility] [id number] [place] [address] [place] CNOVon 10-02-2023 CNOV Office Visit (UROLMN ) SUKHDEEP GAMINO ([id number]) 1960 M Date Time Provider Department 10/02/23 1:15 PM ROXANA BAH During your visit today, we recorded the following information about you: Pulse Blood pressure Weight Height 66/minute 154/96 87.2 kg 1.778 m Roxana Bah MD 11/08/2023 12:24 PM Signed Referring Provider: Cesia Weeks Chief Complaint: Prostate cancer HPI Sukhdeep Gamino is a 62 year old male with history of elevated PSA with recent diagnosis of prostate cancer. Most recent PSA 7.8. Underwent prostate biopsy that demonstrated Eldridge 4+5=9, GG5, 90% highest involvement. Bone scan negative. PSMA PET demosntrating uptake in left posterior PZ but no local or distant mets. IPSS 6 AUA SS10 Family History of Genitourinary Cancer: No PMH: Afib (on Coumdin), HTN, HLD, BPH, CHF PSH: None PATHOLOGY Prostate Biopsy (08/27/23) LABS PSA 07/29/23 7.8 04/30/23 6.9 IMAGING PSMA PET (09/14/23) Bone Scan (09/02/23) REVIEW OF SYSTEMS GENERAL: Negative for fevers, chills, or night sweats. HEENT: Negative for sudden vision or hearing changes. RESPIRATORY: Negative for cough or shortness of breath. CARDIAC: Negative for chest pain, palpitations, murmurs, or syncopal episodes. GASTROINTESTINAL: Negative for diarrhea, constipation, abdominal pain and poor appetite. GENITOURINARY: See HPI. MUSCULOSKELETAL: Negative Bone Aches/pain NEUROLOGIC: Negative for dizziness, headache, weakness or numbness. HEMATOLOGIC: Negative for bleeding or easy bruising. SKIN: Negative for rashes or other skin changes. HISTORIES No past medical history on file. No family history on file. SOCIAL HISTORY PHYSICAL EXAMINATION VITALS: There were no vitals taken for this visit. GENERAL: alert, no distress, normal affect EYES: no icterus, no discharge, conjugate gaze CARDIOVASCULAR: hemodynamically stable RESPIRATORY: normal effort, regular rate, no audible wheeze ABDOMEN: nonobese, soft, non-tender, non-distended GENITOURINARY: no flank tenderness EXTREMITIES: warm, no dependent edema, no malformations SKIN: no abnormal bruising, no rashes, no cyanosis NEUROLOGIC: normal gait, good manual dexterity, no paralysis Assessment Sukhdeep Gamino is a 62 year old male with history of HTN, HLD, asthma, CHF, Afib (on Coumadin), elevated PSA with recent diagnosis of very high risk prostate cancer (PSA 7.8, Eldridge 4+6=9, 90% high involvement) with negative bone scan and negative local or distant mets on PSMA PET. IPSS 6, severe ED. AUA SS 10, moderate. Plan - Plan for RALP with bilateral lymphadenectomy on 11/05/2023 with pre-ops including PACC, pre-op teaching, labs, EKG, Echo, NM Stress Test as close to home as possible. All pre-op testing should be done on 11/02/2023 or after. - Stop coumadin 5 days prior to surgery Radha Hernandez MD PGY-2 Resident Physician Urology I personally interviewed, examined, confirmed and edited the history documented by the Resident. Assessment : prostate CA Plan : above Roxana Bah MD Hand Trucker: Orders ID: [id number] 11/03/2023 12:00 AM Author: JEROME, PROVIDER Signed by [facility] PROVIDER on 11/03/2023 at 12:00 AM Document text: Referring Provider: CESIA WEEKS [[id number]] Allergies As of Date: 10/02/2023 (Not on File) Date Reviewed: 10/02/2023 Reviewed by: Jennyfer Chacon OCCA - Fully Assessed Primary Visit Diagnosis:Prostate cancer (HCC) [C61] Prescriptions as of 11/08/2023 - docusate sodium (COLACE) 100 mg capsule Take 1 capsule by mouth two times a day. - oxyCODONE IR (ROXICODONE) 5 mg immediate release tablet Take 1 tablet by mouth every 8 hours as needed for pain for up to 9 doses. - acetaminophen (TYLENOL EXTRA STRENGTH) 500 mg tablet Take 2 tablets by mouth every 8 hours as needed for pain for up to 40 doses. - ciprofloxacin HCl (CIPRO) 500 mg tablet Take 1 tablet by mouth two times a day for 3 days. Start taking 1 day prior to padgett removal - oxybutynin XL (DITROPAN XL) 5 mg 24 hr tablet Take 1 tablet by mouth once daily as needed (bladder spasms) for up to 6 days. Please stop taking at least ONE DAY prior to padgett removal - apixaban (ELIQUIS) 2.5 mg tab(s) Take 1 tablet by mouth two times a day for 7 days. - aspirin, enteric coated (ASPIRIN, ENTERIC COATED) 81 mg EC tablet in the morning. - pravastatin (PRAVACHOL) 40 mg tablet Take 40 mg by mouth daily at bedtime. - warfarin (COUMADIN) 6 mg tablet Take 1 tablet by mouth every afternoon. - dilTIAZem CD (CARDIZEM CD, CARTIA XT) 120 mg 24 hr capsule TAKE 1 CAPSULE BY MOUTH ONCE DAILY DIRECTED - carvedilol (COREG) 25 mg tablet TAKE 1 TABLET BY MOUTH IN THE MORNING AND AT BEDTIME - lisinopril (ZESTRIL) 10 mg tablet Take 10 mg by mouth once daily. - tamsulosin (FLOMAX) 0.4 mg Take 1 caps (more content not included)... Normal [facility] URINALYSIS, REFLEX MICROSCOP ICon 10-02-2023 Bilirubin Ql (U) Negative Negative [facility] Clarity (Unsp spec) Clear Clear [facility] Color (U) Light Yellow Yellow [facility] Glucose Test strip (U) [Mass/Vol] Negative Trace, Negative [facility] Hemoglobin Ql (U) Negative Negative, Trace [facility] Ketones Ql (U) Negative Negative, Trace [facility] Leukocyte esterase Test strip Ql (U) Negative Negative, 25 Brandon/uL [facility] Nitrite Ql (U) Negative Negative [facility] pH (U) 5.0 [pH] 5.0 - 8.0 [facility] Protein (U) [Mass/Vol] Negative Trace, Negative [facility] Specific gravity (U) [Rel density] 1.027 1.005 - 1.030 [facility] Urobilinogen Ql (U) Normal Normal [facility] Bilirubin Ql (U) Negative Normal Negative [facility] Comment on above: Order Comment: Speci men Type: URINE SPECIMENOrdering Facility: [facility] Address: [address] [place] [address] Performed By: #### L [id number] ####[facility] LABCLIA [id number] [place] [address] [place] Clarity (Unsp spec) Clear Normal Clear [facility] Comment on above: Order Comment: Speci men Type: URINE SPECIMENOrdering Facility: [facility] Address: [address] [place] [address] Performed By: #### L [id number] ####[facility] LABCLIA [id number] [place] [address] [place] Color (U) Light Yellow Normal Yellow [facility] Comment on above: Order Comment: Speci men Type: URINE SPECIMENOrdering Facility: [facility] Address: [address] [place] [address] Performed By: #### L [id number] ####[facility] LABCLIA [id number] [place] [address] [place] Glucose Test strip (U) [Mass/Vol] Negative Normal Trace, Negative [facility] Comment on above: Order Comment: Speci men Type: URINE SPECIMENOrdering Facility: [facility] Address: [address] [place] [address] Performed By: #### L [id number] ####[facility] LABCLIA [id number] [place] [address] [place] Hemoglobin Ql (U) Negative Normal Negative, Trace [facility] Comment on above: Order Comment: Speci men Type: URINE SPECIMENOrdering Facility: [facility] Address: [address] [place] [id number] Performed By: #### L [id number] ####[facility] LABCLIA [id number] [place] [address] [place] Ketones Ql (U) Negative Normal Negative, Trace [facility] Comment on above: Order Comment: Speci men Type: URINE SPECIMENOrdering Facility: [facility] Address: [address] [place] [address] Performed By: #### L [id number] ####[facility] LABCLIA [id number] [place] [address] [place] Leukocyte esterase Test strip Ql (U) Negative Normal Negative, 25 Brandon/uL [facility] Comment on above: Order Comment: Speci men Type: URINE SPECIMENOrdering Facility: [facility] Address: [address] [place] [address] Performed By: #### L [id number] ####[facility] LABCLIA [id number] [place] [address] [place] Nitrite Ql (U) Negative Normal Negative [facility] Comment on above: Order Comment: Speci men Type: URINE SPECIMENOrdering Facility: [facility] Address: [address] [place] [address] Performed By: #### L [id number] ####[facility] LABIA [id number] [place] [address] [place] pH (U) 5.0 [pH] Normal 5.0-8.0 [facility] Comment on above: Order Comment: Speci men Type: URINE SPECIMENOrdering Facility: [facility] Address: [address] [place] [address] Performed By: #### L [id number] ####[facility] LABIA [id number] [place] [address] [place] Protein (U) [Mass/Vol] Negative Normal Trace, Negative [facility] Comment on above: Order Comment: Speci men Type: URINE SPECIMENOrdering Facility: [facility] Address: [address] [place] [address] Performed By: #### L [id number] ####[facility] LABIA [id number] [place] [address] [place] Specific gravity (U) [Rel density] 1.027 Normal 1.005-1.030 [facility] Comment on above: Order Comment: Speci men Type: URINE SPECIMENOrdering Facility: [facility] Address: [address] [place] [address] Performed By: #### L [id number] ####[facility] LABCLIA [id number] [place] [address] [place] Urobilinogen Ql (U) Normal Normal Normal [facility] Comment on above: Order Comment: Speci men Type: URINE SPECIMENOrdering Facility: [facility] Address: [address] [place] [address] Performed By: #### L [id number] ####[facility] LABCLIA [id number] [place] [address] [place] RAD - Nuclear Medicine Repor ton 09-15-2023 RAD - Nuclear Medicine Report [id number] Normal [facility] PET psma initial tx sb-mton 09-14-2023 PET psma initial tx sb-mt [facility] [place] [address] Nuclear Medicine Report Signed Patient: Sukhdeep Gamino MR#: [id number] 5 : 1960 Acct:[id number] Age/Sex: 62 / M ADM Date: 09/14/23 Loc: Room: Type: [facility] Attending Dr: Cesia Weeks MD Copies to: Shahriar Urrutia Jr, DO Cesia Weeks MD Ordering Provider: Cesia Weeks MD Date of Service: 09/14/23 PET/PET psma initial tx sb-mt: PROSTATE CA PET/CT FUSION IMAGING PSMA CLINICAL INFORMATION: Prostate cancer COMPARISON : None TECHNIQUE: Noncontrasted CT scan from the base of the skull to the upper thigh followed by PET imaging. Multiplanar PET/CT fusion images. The F-18 pifluolastat amount : 10.06mCi. FINDINGS: Neck: No abnormal activity. Chest:No abnormal activity. Abdomen/pelvis: No abnormal activity is seen within the abdomen. Abnormal activity is seen involving the left aspect of the peripheral zone of the prostate gland consistent with the history. No avid lymph nodes are noted. Soft tissue/bones: No abnormal activity. CT findings: No pericardial or pleural effusions. No pneumothorax. Evidence old granulomatous disease. No free air or free fluid. Left-sided inguinal hernia containing uncomplicated colon. PET/PET psma initial tx sb-mt IMPRESSION: Abnormal activity is identified involving the left aspect of the peripheral zone of the prostate gland consistent with the history. No evidence of local or distant metastatic disease is seen. Impression dictated by: Shahriar Urrutia Jr., Yamilka09/14/2023 3:06 PM Dictation Location: [place] [address] Transcribed By: KIERSTEN 09/14/23 1506 Dictated By: Shahriar Urrutia Jr, DO 09/14/23 1456 Signed By: 09/14/23 1506 [facility] RAD - Nuclear Medicine Repor ton 09-03-2023 RAD - Nuclear Medicine Report [id number] [facility] Telephone (NCCAP) SUKHDEEP GAMINO ([id number]) 1960 Date Time Provider Department 09/02/23 CESIA WEEKS During your visit today, we recorded the following information about you: María Simon 09/02/2023 8:33 AM Signed This form is used for MAIN CAMPUS APPOINTMENTS ONLY. Is this request for a [place] PET scan appointment? Yes: Contract Sheltered Workshop Supervisor: María Retana Requesting Person Dr Weeks: Area Code + Phone/Pager: [phone] Who do we call to schedule this appointment? Other Contact: [facility] please route to Regine Marcus in [place] for scheduleing pt is approved through [facility] Requesting Staff Dr weeks Area Code + Phone/Pager: [phone] PET Orders (A delay in scheduling will result if the orders are not present at time of review): External. Has the External Clinical Order been scanned into [facility]? Yes ADDITIONAL ACTION MAY BE REQUIRED IF PATIENTS OON INSURANCE OR SELF PAY COVERAGE HAS NOT BEEN CLEARED FOR REQUESTED APPOINTMENT. Scheduling: SUKHJINDER: As soon as insurance will allow What account will this PET appointment be linked to? P/F Type of PET: Oncology: Are there additional diagnostic CT scans required to be done at time of PET scan? No Is the request for a PET MR ? No What account will diagnostic testing appointment be linked to? P/F Will the patient need anesthesia? NO Send requests to COORD REVIEW Tameka Gay RN 09/04/2023 10:01 AM Addendum PT is OON [employer] Self pay DO NOT SCHEDULE TILL APPROVED, [facility] referral [phone], Questions contact [email or web address] PreAccess obtained approval OK to schedule Authorization number: PSMA Authorization date range: PSMA Primary Insurance: Sabianist Self pay OON Diagnosis: Prostate Cancer C61 DX Imaging: N/A Pathology: 08-26-23 Prostate biopsy Adenocarcinoma GS 4+5 = 9, 90% Labs: 07-29-23 PSA 7.8 04-30-23 PSA 6.9 Clinical Notes Reviewed: 08-31-23 External Urology Date of last: na Additional Information: N/A Radiologist Reviewed: N/A Initial/Subsequent: Subsequent Treatment Strategy: 0093 PET Protocol: PSMA Diagnostic Imaging Requested: No Is this a Pretreatment and/or an initial Pet scan: No - Schedule as requested Comments for Wiring Inspector: Joseph ROUTE TO SCHEDULERS POOL P PET VAULT INSTALLER MC or P NM SPECIAL STUDIES MC Allergies As of Date: 09/02/2023 (Not on File) Date Reviewed: Never Reviewed Reason for Visit: Nm Pet Request [3598] Problem List As Of Date: 09/02/2023 (None) Encounter Status:Closed by MARÍA SIMON on 09/09/23 Normal [facility] Physician Orderon 09-01-2023 Physician Order [id number]#[id number] Normal [facility] Ambulatory Visit Summaryon 0 08-31-2023 Ambulatory Visit Summary SUKHDEEP GAMINO :1960 Visit Date:08/31/2023 Ambulatory Visit Instructions Your Diagnosis Prostate cancer BPH with urinary obstruction Inguinal hernia Your Care Team Attending Physician - MICKY GARRISON, Cesia Hernández Primary Care Physician - Alek Fatima MD This Is Your Medications List Contact prescribing physician if questions or concerns carvedilol (carvedilol 25 mg Tab) diltiazem (DilTIAZem (Eqv-Cardizem CD) 120 mg/24 hours oral capsule, extended release) fluticasone-vilanterol (fluticasone-vilanterol 50 mcg-25 mcg/inh. inhalation powder) lisinopril (lisinopril [...] Following Appointments Follow Up with MICKY GARRISON, Cesia Hernández, YESENIA When: Comments: f/u pending results of PSMA and bone scans Where: [facility] [address] [place] [address]- [phone] Medications What How Much When Why Instructions Unchanged carvedilol (carvedilol 25 mg Tab) Contact prescribing physician if questions or concerns Unchanged diltiazem (DilTIAZem (Eqv-Cardizem CD) 120 mg/ 24 hours oral capsule, extended release) Contact prescribing physician if questions or concerns Unchanged fluticasone-vilanterol (fluticasone-vilanterol 50 mcg-25 mcg/ inh. inhalation powder) Inhalation [...] as fo (more content not included)... Normal [facility] Patient Educationon 08-31-19 24 Patient Education Oncology Prostate Cancer The prostate [...] under a microscope. This is called the Christine score and the total score can range from 6?10, indicating how likely it is that the cancer will spread (metastasize) to other parts of the body. The higher the score, the greater the likelihood that the cancer will spread. ? Eldridge 6 or lower: This indicates that the cancer cells look similar to normal prostate cells (well differentiated). ? Christine 7: This indicates that the cancer cells [...] external be (more content not included)... Normal [facility] Urology Office/Clinic Noteon 08-31-2023 Urology Office/Clinic Note [...] and history for this patient from Dr. Weeks. I have reviewed and verified the staff [...] cons of each therapy today, and the makemoji prostate cancer book was provided. Explained that [...] Follow-up With When Contact Information MICKY GARRISON, Cesia Hernández, URL [facility] [address] , [place] [address]- [phone] Additional Instructions: f/u pending results of PSMA and bone scans Patient Education Prostate Cancer I, Radha Balderas, personally scribed for Dr. Weeks on 08/31/2023 10:25:27. . Documentation recorded by the scribe, Radha Balderas, accurately reflects the services(s) I performed and decisions made by me. Authenticated by Dr. Weeks on 08/31/2023 10:33:59. Problem List/Past Medical History Ongoing A-fib Asthma BPH with urinary obstruction Elevated PSA Heart disease Hypertension Inguinal hernia Prostate cancer Historical No qualifying data Procedure/Surgical History Transrectal biopsy of prostate using ultrasound (US) guidance (08/25/2023), Cardiac catheter, Hip replacement, Sinus node. Medications carvedilol 25 mg Tab DilTIAZem (Eqv-Cardizem CD) 120 mg/24 hours oral capsule, extended release fluticasone-vilanterol 50 mcg-25 mcg/inh. inhalation powder, Inhalation, Daily [...] mRNA BNT-162b2 vax (more content not included)... [facility] Comment on above: Result Comment: Elec tronically Signed By: Cesia WEEKS MD\.br\Date and Time Signed: 08/31/23 10:34 EST\.br\Electronically Co-Signed By: Radha Balderas\.br\Date and Time Co-Signed: 08/31/23 10:25 EST Lab Reportson 08-28-2023 Lab Reports [id number]#1.00TIFF [facility] Consent for Procedure/Surger yon 08-26-2023 Consent for Procedure/Surgery [id number]#[id number] [facility] Ambulatory Visit Summaryon 0 08-25-2023 Ambulatory Visit Summary STEVENSON SUKHDEEP Donaldson :1960 Visit Date:08/25/2023 Ambulatory Visit Instructions Your Diagnosis Elevated PSA BPH with urinary obstruction Inguinal hernia A-fib Your Care Team Attending Physician - MICKY GARRISON, Cesia Hernández Primary Care Physician - Alek Fatima MD This Is Your Medications List tamsulosin (tamsulosin 0.4 mg Cap) Contact prescribing physician if questions or concerns carvedilol (carvedilol 25 mg Tab) diltiazem (DilTIAZem (Eqv-Cardizem CD) 120 mg/24 hours oral capsule, extended release) fluticasone-vilanterol (fluticasone-vilanterol 50 mcg-25 mcg/inh. inhalation powder) lisinopril (lisinopril [...] Thursday 10:30 AM EST With: MICKY GARRISON, Cesia Hernández Where: [facility] Roel 08-25-2023 L Specimen: [id number] Re ceived: 08/26/23 Status: ROS[facility] Woodard Num: [id number] Spec Type: Surgical Subm Dr: Cesia Weeks MD Tissues: A Prostate - Needle Biopsy [...] Biopsy (RT LATERAL APEX) Procedures: , Gross/Micro L4/12 Age/ Patient Sex Location Account Attending Physician Sukhdeep Gamino 62/M [place] [id number] Cesia Weeks MD SPEC NUM: [id number] RECD: 08/26/23 STATUS: ROSA WOODARD NUM: [id number] BRIDGETTE: 08/25/23-[address]: Cesia Weeks MD ENTERED: 08/26/[address] [facility] [address]: SPEC TYPE: Surgical DEPT: [facility] BY: [id number] ORDERED: HE/24, Gross/Micro L4/12 ORDERED: HE/24, Gross/Micro L4/12, USS/24 Pathological Diagnosis A. Prostate, left base, needle core biopsies: - Invasive prostate adenocarcinoma, Eldridge pattern 3+5, grade group 4. - Adenocarcinoma [...] group 5 Specimen: [id number] Received: 08/26/23 Status: [facility] Num: [id number] Spec Type: Surgical Subm Dr: Cesia Weeks MD Tissues: A Prostate - Needle Biopsy [...] - Needle Biopsy (RT LATERAL APEX) Procedures: HE/, Gross/Micro L4/12 Patient: Sukhdeep Gamino [id number] (Continued) Specimen: [id number] Received: 08/26/23 (Continued) Pathological Diagnosis (Continued) Signed (signature on file) Nani Ambrocio MD 08/27/23 0959 Specimen: [id number] Received: 08/26/23 Status: ROS[facility] Woodard Num: [id number] Spec Type: Surgical Subm Dr: Cesia Weeks MD Tissues: A Prostate - Needle Biopsy [...] (RT LATERAL APEX) Procedures: HE/24, Gross/Micro L4/12 Patient: Sukhdeep Gamino [id number] (Continued) Specimen: [id number] Received: 08/26/23 (Continued) Pathological Diagnosis (Continued) - Adenocarcinoma involves 50% of the biopsy tissue. - Negative for lymphovascular and perineural invasion. D. Prostate, left lateral mid, needle core biopsy: - Invasive prostate adenocarcinoma, Eldridge pattern 4+5, minor 3, grade group 5 - Adenocarcinoma involves 60% of the biopsy tissue. - Negative for lymphovascular and perineural invasion E. Prostate, left apex, needle core biopsy: - Invasive prostate adenocarcinoma, Eldridge pattern 4+3, grade group 3 - Adenocarcinoma involves 60% of the biopsy tissue. - Negative for lymphovascular and perineural invasion F. Prostate, left lateral apex, needle core biopsy: - Invasive prostate adenocarcinoma Christine pattern 4+4, Minor 5, grade group 4 - Adenocarcinoma involves 40% of the biopsy tissue. - Negative for lymphovascular and perineural invasion. G. Prostate, (more content not included)... [facility] Patient Educationon 08-25-19 Patient Education Oncology Transrectal [...] near your rectum, especially while sitting. ? Mckenney-colored urine due to small amounts of blood in your urine. ? A burning feeling while urinating. ? Blood in your stool (feces) or bleeding from your rectum. ? Blood in your semen. Follow these instructions at home: Medicines ? Take cqog-gme-kuekzzs and prescription medicines only as told by [...] provider. Document Revised: 01/13/2022 Document Reviewed: 01/13/2022 [employer] Patient Education ? 2022 [employer] Hieu. Mayela [facility] Urology Office/Clinic Noteon 08-25-2023 Urology Office/Clinic Note Chief Complaint Pt is here for TRUS/bx HPI Staff Pt is here for TRUS BX History of Present Illness Tests reviewed: none I have reviewed the previous health record information and history for this patient from Dr. Weeks. I have reviewed and verified the staff [...] without complications. Pathology to be sent to [facility]. -F/u scheduled 09/11/23 to review path report [...] atrial fibrillation) Pt received clearance from Dr. Fatima to stop warfarin for 5 days and asa for 7 days. Pt to resume these tomorrow. Follow-up With When Contact Information MICKY GARRISON, Cesia Hernández, URL [facility] [address] , [place] [address]- [phone] Additional Instructions: review path on 09/11/23 Patient Education Transrectal Ultrasound-Guided Prostate Biopsy, Care After IRadha, personally scribed for Dr. Weeks on 08/25/2023 15:48:19. . Documentation recorded by the scribe, Radha Balderas, accurately reflects the services(s) I performed and decisions made by me. Authenticated by Dr. Weeks on 08/25/2023 15:49:08. Problem List/Past Medical History Ongoing A-fib Asthma BPH with urinary obstruction Elevated PSA Heart disease Hypertension Inguinal hernia Historical No qualifying data Procedure/Surgical History Transrectal biopsy of prostate using ultrasound (US) guidance (08/25/2023), Cardiac catheter, Hip replacement, Sinus node. Medications carvedilol 25 mg Tab DilTIAZem (Eqv-Cardizem CD) 120 mg/24 hours oral capsule, extended release fluticasone-vilanterol 50 mcg-25 mcg/inh. inhalation powd (more content not included)... Normal [facility] Comment on above: Result Comment: Elec tronically Signed By: Cesia WEEKS MD\.br\Date and Time Signed: 08/25/23 15:49 EST\.br\Electronically Co-Signed By: Radha Balderas\.br\Date and Time Co-Signed: 08/25/23 15:48 EST Lab Reportson 08-20-2023 Lab Reports [id number]#[id number] [facility] Patient Correspondenceon Patient Correspondence [id number] Normal [facility] Physician Referralon 024 Physician Referral [id number]#[id number] [facility] Screenson 08-11-2023 Screens [id number]#1.00TIFF [facility] Ambulatory Visit Summaryon 0 08-10-2023 Ambulatory Visit Summary SUKHDEEP GAMINO :1960 Visit Date:08/10/2023 Ambulatory Visit Instructions Your Diagnosis Elevated PSA BPH with urinary obstruction A-fib Inguinal hernia Tests Performed Urnls Dip Stick Auto w/o Microscopy POC 99091 Your Care Team Attending Physician - MICKY GARRISON, Cesia Hernández Primary Care Physician - Alek Fatima MD Referring Physician - Alek Fatima MD This Is Your Medications List Contact prescribing physician if questions or concerns carvedilol (carvedilol 25 mg Tab) diltiazem (DilTIAZem (Eqv-Cardizem CD) 120 mg/24 hours oral capsule, extended release) fluticasone-vilanterol (fluticasone-vilanterol 50 mcg-25 mcg/inh. inhalation powder) lisinopril (lisinopril [...] Following Appointments Follow Up with MICKY GARRISON, Cesia Hernández, YESENIA When: Comments: sched TRUS/bx Where: [facility] [address], [place] [address]- [phone] Medications What How Much When Instructions Unchanged carvedilol (carvedilol 25 mg Tab) Contact prescribing physician if questions or concerns Unchanged diltiazem (DilTIAZem (Eqv-Cardizem CD) 120 mg/ 24 hours oral capsule, extended release) Contact prescribing physician if questions or concerns Unchanged fluticasone-vilanterol (fluticasone-vilanterol 50 mcg-25 mcg/ inh. inhalation powder) Every day Contact prescribing physician if questions or concerns Unchanged lisinopril (lisinopril 10 mg Tab) Contact prescribing physician if questions or concerns Unchanged pravastatin (pravastatin 40 mg Tab) Contact prescribing physician if questions or concerns Unchanged warfarin (warfarin 6 mg Tab) Contact prescribing physician if questions or concerns Test Results Urnls Dip Stick Auto w/o Microscopy POC 58886 (08/10/2023) Bilirubin Urine Dipstick - Negative Blood Urine Dipstick - Negative Glucose Urine Dipstick - Negative Ketones Urine Dipstick - Negative Leukocytes Urine Dipstick - Negative Nitrite Urine Dipstick - Negative Protein Urine Dipstick - Negative Specific [place] Urine Dipstick - 1.025 Urine Appearance Urine [...] near your rectum, especially while sitting. ? Mckenney-colored urine due to small amounts of blood in your urine. ? A burning feeling while urinating. ? Blood in your stool (feces) or bleeding from your rectum. ? Blood in your semen. Follow these instructions at home: Medicines ? Take lvhd-ouo-imfmdov and prescription medicines only as told by [...] your uri (more content not included)... Normal [facility] Patient Educationon 08-10-19 Patient Education Oncology Transrectal [...] near your rectum, especially while sitting. ? Mckenney-colored urine due to small amounts of blood in your urine. ? A burning feeling while urinating. ? Blood in your stool (feces) or bleeding from your rectum. ? Blood in your semen. Follow these instructions at home: Medicines ? Take bqce-wde-vludkfu and prescription medicines only as told by [...] provider. Document Revised: 01/13/2022 Document Reviewed: 01/13/2022 [employer] Patient Education ? 2022 [employer] Transrectal Ultrasound-Guided Prostate Biopsy A transrectal [...] including vitamins, herbs, eye drops, creams, and cmsc-jtw-utdziyi medicines. ? Any problems you or family [...] as aspirin (more content not included)... Normal [facility] Lab Reportson 07-30-2023 Lab Reports [id number]#[id number] Normal [facility] Lab Reportson 07-29-2023 Lab Reports [id number]#[id number] Normal [facility] Office Visiton 01-02-2023 Follow-up visit [id number] Sukhdeep Gamino 1960 M Date Provider Department Center 01/02/2023 [facility] PR[facility] No family history on file Level of Service:78833 DC OFFICE/OUTPATIENT ESTABLISHED LOW [facility] 20-29 MIN Reason for Visit and Comments: Atrial Fibrillation [80] Coronary Artery Disease [187] Hypertension [082656] Congestive Heart Failure [127] Normal [facility] XR LSPINE MIN 4 VIEWSon 05-04 XR [...] by: ALL RICARDO Date: 2022-05-26 19:58 Normal [facility] Basic metabolic 2000 panelon 06-27-2021 Anion gap [Moles/Vol] 8 mmol/L Normal 6-18 [facility] Comment on above: Performed By: #### 2 4321-2 #### [facility] [address] [place] [address] Calcium [Mass/Vol] 8.7 mg/dL Low 8.9-10.3 [facility] Comment on above: Performed By: #### 2 4321-2 #### [facility] [address] [place] [address] Chloride [Moles/Vol] 106 mmol/L Normal 98-107 [facility] Comment on above: Performed By: #### 2 4321-2 #### [facility] [address] [place] [address] CO2 [Moles/Vol] 26 mmol/L Normal 22-32 [facility] Comment on above: Performed By: #### 2 4321-2 #### [facility] [address] [place] [address] Creatinine [Mass/Vol] 1.05 mg/dL Normal 0.60-1.30 [facility] Comment on above: Performed By: #### 2 4321-2 #### [facility] [address] [place] [address] GFR/1.73 sq M.predicted among non-blacks MDRD (S/P/Bld) [Vol rate/Area] 76 mL/min/{1.73_m2} Normal [facility] Comment on above: Performed By: #### 2 4321-2 #### [facility] [address] [place] [address] Glucose [Mass/Vol] 126 mg/dL High 70-99 [facility] Comment on above: Performed By: #### 2 4321-2 #### [facility] [address] [place] [address] Potassium [Moles/Vol] 4.3 mmol/L Normal 3.6-5.1 [facility] Comment on above: Performed By: #### 2 4321-2 #### [facility] [address] [place] [address] Sodium [Moles/Vol] 140 mmol/L Normal 136-145 [facility] Comment on above: Performed By: #### 2 4321-2 #### [facility] [address] [place] [address] Urea nitrogen [Mass/Vol] 16 mg/dL Normal 8-20 [facility] Comment on above: Performed By: #### 2 4321-2 #### [facility] [address] [place] [address], [place] [address] Urea nitrogen/Creatinine [Mass ratio] 15.2 mg/mg Normal 12.0-20.0 [facility] Comment on above: Performed By: #### 2 4321-2 #### [facility] [address] [place] [address], [place] [address] Hemogram and platelets WO di fferential panel (Bld)on 06-27-2021 Basophils (Bld) [#/Vol] 0.00 10*3/uL Normal 0.00-0.20 [facility] Comment on above: Performed By: #### 2 4317-0 #### [facility] [address] [place] [address] Basophils/100 WBC (Bld) 0.1 % Normal 0.0-2.0 [facility] Comment on above: Performed By: #### 2 4317-0 #### [facility] [address] [place] [address], [place] [address] Eosinophils (Bld) [#/Vol] 0.00 10*3/uL Normal 0.00-0.70 [facility] Comment on above: Performed By: #### 2 4317-0 #### [facility] [address] [place] [address] Eosinophils/100 WBC (Bld) 0.0 % Normal 0.0-7.0 [facility] Comment on above: Performed By: #### 2 4317-0 #### [facility] [address] [place] [address] Erythrocyte distribution width (RBC) [Ratio] 13.2 % Normal 11.0-14.8 [facility] Comment on above: Performed By: #### 2 4317-0 #### [facility] [address] [place] [address] Hematocrit (Bld) [Volume fraction] 36.3 % Low 39.0-49.0 [facility] Comment on above: Performed By: #### 2 4317-0 #### [facility] [address] [place] [address] Hemoglobin (Bld) [Mass/Vol] 12.2 g/dL Low 13.5-17.5 [facility] Comment on above: Performed By: #### 2 4317-0 #### [facility] [address] [place] [address] Lymphocytes (Bld) [#/Vol] 0.70 10*3/uL Low 1.00-4.80 [facility] Comment on above: Performed By: #### 2 4317-0 #### [facility] [address] [place] [address] Lymphocytes/100 WBC (Bld) 7.3 % Low 22.0-44.0 [facility] Comment on above: Performed By: #### 2 4317-0 #### [facility] [address] [place] [address] MCH 30.0 pcg Normal 27.0-34.0 [facility] Comment on above: Performed By: #### 2 4317-0 #### [facility] [address] [place] [address] MCHC (RBC) [Mass/Vol] 33.5 g/dL Normal 32.0-36.0 [facility] Comment on above: Performed By: #### 2 4317-0 #### [facility] [address] [place] [address] MCV (RBC) [Entitic vol] 89.5 fL Normal 80.0-97.0 [facility] Comment on above: Performed By: #### 2 4317-0 #### [facility] [address] [place] [address] 51739 Monocytes (Bld) [#/Vol] 1.00 10*3/uL High 0.00-0.90 [facility] Comment on above: Performed By: #### 2 4317-0 #### [facility] [address] [place] [address] 40482 Monocytes/100 WBC (Bld) 11.6 % Normal 0.0-12.0 [facility] Comment on above: Performed By: #### 2 4317-0 #### [facility] [address] [place] [address] 60945 Neutrophils Absolute 7.30 K/mcL Normal 1.80-7.70 [facility] Comment on above: Performed By: #### 2 4317-0 #### [facility] [address] [place] [address] 29186 Neutrophils/100 WBC (Bld) 81.0 % High 40.0-70.0 [facility] Comment on above: Performed By: #### 2 4317-0 #### [facility] [address] [place] [address] 47874 Platelet mean volume (Bld) [Entitic vol] 7.0 fL Normal 6.2-12.1 [facility] Comment on above: Performed By: #### 2 4317-0 #### [facility] [address] [place] [address] 18097 Platelets (Bld) [#/Vol] 195 10*3/uL Normal 142-424 [facility] Comment on above: Performed By: #### 2 4317-0 #### [facility] [address] [place] [address] 76045 RBC (Bld) [#/Vol] 4.06 10*6/uL Low 4.30-5.70 [facility] Comment on above: Performed By: #### 2 4317-0 #### [facility] [address] [place] [address] 08895 WBC (Bld) [#/Vol] 9.0 10*3/uL Normal 4.6-10.2 [facility] Comment on above: Performed By: #### 2 4317-0 #### [facility] [address] [place] [address] 69521 PT Coag (PPP) [Time]on 06-27 INR Coag (PPP) [Relative time] 1.2 {INR} Normal <=5.0 [facility] Comment on above: Result Comment: The recommended therapeutic INR range for most cardiac indications is 2.0-3.0 For high intensity therapy (i.e. mechanical heart valves), the recommended range is 2.5-3.5 Performed By: #### 2 4321-2 #### [facility] [address] [place] [address] 08604 Prothrombin timeon PT Coag (PPP) [Time] 15.0 s High 11.9-14.7 [facility] Comment on above: Performed By: #### 2 4321-2 #### [facility] [address] [place] [address] 34697 Glucose Auto test strip (Bld ) [Mass/Vol]on 06-26-2021 Glucose [Mass/Vol] 82 mg/dL Normal 70-99 [facility] Comment on above: Performed By: #### 2 340-8 #### [facility] [address] [place] [address] Glucose [Mass/Vol] 146 mg/dL High 70-99 [facility] Comment on above: Performed By: #### 2 340-8 #### [facility] [address] [place] [address] 37470 PT Coag (PPP) [Time]on 06-26 INR Coag (PPP) [Relative time] 1.2 {INR} Normal <=5.0 [facility] Comment on above: Result Comment: The recommended therapeutic INR range for most cardiac indications is 2.0-3.0 For high intensity therapy (i.e. mechanical heart valves), the recommended range is 2.5-3.5 Performed By: #### 5 902-2 #### [facility] [address] [place] [address] 00274 INR Coag (PPP) [Relative time] 1.1 {INR} Normal <=5.0 [facility] Comment on above: Result Comment: The recommended therapeutic INR range for most cardiac indications is 2.0-3.0 For high intensity therapy (i.e. mechanical heart valves), the recommended range is 2.5-3.5 Performed By: #### 5 902-2 #### [facility] [address] [place] [address] 39158 Prothrombin timeon PT Coag (PPP) [Time] 14.7 s Normal 11.9-14.7 [facility] Comment on above: Performed By: #### 5 902-2 #### [facility] [address] [place] [address] 29519 PT Coag (PPP) [Time] 14.1 s Normal 11.9-14.7 [facility] Comment on above: Performed By: #### 5 902-2 #### [facility] [address] [place] [address] XR FLUORO UP TO 1 HOUR (STAT ISTICS)(NO REPORT)on 06-26-2021 XR FLUORO UP TO 1 HOUR (STATISTICS)(NO REPORT) This order has been auto-finalized and does not contain a result. Normal [facility] XR Fluoro Up To 1 Hour (Stat [...] Self Edit Transcribed Date: 06/26/2021 13:48 Normal [facility] Covid-19 PCR (CVDTBH)on 06-04 SARS-CoV-2 (COVID-19) RNA NANCY+probe Ql (Unsp spec) Not detected Normal NOT DETECTED [facility] Comment on above: Result Comment: This test is not yet approved or cleared by the [place] FDA. When there are no FDA-approved or cleared tests available, and other criteria are met, FDA can make tests available under an emergency access mechanism called an Emergency Use Authorization (EUA). The EUA for this test is supported by the [place] of Health and Human Service's (HHS's) declaration [...] consistent with SARS-CoV-2. Performed By: #### [facility] #### [facility] [address] [address] [address] Grant Carrillo Basic metabolic 2000 panelon 06-03-2021 Anion gap [Moles/Vol] 9 mmol/L Normal 6-18 [facility] Comment on above: Performed By: #### 2 4321-2 #### [facility] [address] [place] [address] Calcium [Mass/Vol] 9.4 mg/dL Normal 8.9-10.3 [facility] Comment on above: Performed By: #### 2 4321-2 #### [facility] [address] [place] [address] Chloride [Moles/Vol] 105 mmol/L Normal 98-107 [facility] Comment on above: Performed By: #### 2 4321-2 #### [facility] [address] [place] [address] CO2 [Moles/Vol] 25 mmol/L Normal 22-32 [facility] Comment on above: Performed By: #### 2 4321-2 #### [facility] [address] [place] [address] Creatinine [Mass/Vol] 1.05 mg/dL Normal 0.60-1.30 [facility] Comment on above: Performed By: #### 2 4321-2 #### [facility] [address] [place] [address] GFR/1.73 sq M.predicted among non-blacks MDRD (S/P/Bld) [Vol rate/Area] 76 mL/min/{1.73_m2} Normal [facility] Comment on above: Performed By: #### 2 4321-2 #### [facility] [address] [place] [address] Glucose [Mass/Vol] 96 mg/dL Normal 70-99 [facility] Comment on above: Performed By: #### 2 4321-2 #### [facility] [address] [place] [address] 27688 Potassium [Moles/Vol] 4.4 mmol/L Normal 3.6-5.1 [facility] Comment on above: Performed By: #### 2 4321-2 #### [facility] [address] [place] [address] 41434 Sodium [Moles/Vol] 139 mmol/L Normal 136-145 [facility] Comment on above: Performed By: #### 2 4321-2 #### [facility] [address] [place] [address] 65617 Urea nitrogen [Mass/Vol] 23 mg/dL High 8-20 [facility] Comment on above: Performed By: #### 2 4321-2 #### [facility] [address] [place] [address] 96214 Urea nitrogen/Creatinine [Mass ratio] 21.9 mg/mg High 12.0-20.0 [facility] Comment on above: Performed By: #### 2 4321-2 #### [facility] [address] [place] [address] 10801 Hemogram and platelets WO di fferential panel (Bld)on 06-03-2021 Basophils (Bld) [#/Vol] 0.10 10*3/uL Normal 0.00-0.20 [facility] Comment on above: Performed By: #### 2 4317-0 #### [facility] [address] [place] [address] Basophils/100 WBC (Bld) 0.5 % Normal 0.0-2.0 [facility] Comment on above: Performed By: #### 2 4317-0 #### [facility] [address] [place] [address] 74929 Eosinophils (Bld) [#/Vol] 0.10 10*3/uL Normal 0.00-0.70 [facility] Comment on above: Performed By: #### 2 4317-0 #### [facility] [address] [place] [address] 21604 Eosinophils/100 WBC (Bld) 0.6 % Normal 0.0-7.0 [facility] Comment on above: Performed By: #### 2 4317-0 #### [facility] [address] [place] [address] 22680 Erythrocyte distribution width (RBC) [Ratio] 13.7 % Normal 11.0-14.8 [facility] Comment on above: Performed By: #### 2 4317-0 #### [facility] [address] [place] [address] 94673 Hematocrit (Bld) [Volume fraction] 45.9 % Normal 39.0-49.0 [facility] Comment on above: Performed By: #### 2 4317-0 #### [facility] [address] [place] [address] 76238 Hemoglobin (Bld) [Mass/Vol] 15.1 g/dL Normal 13.5-17.5 [facility] Comment on above: Performed By: #### 2 4317-0 #### [facility] [address] [place] [address] 91323 Lymphocytes (Bld) [#/Vol] 1.20 10*3/uL Normal 1.00-4.80 [facility] Comment on above: Performed By: #### 2 4317-0 #### [facility] [address] [place] [address] Lymphocytes/100 WBC (Bld) 11.3 % Low 22.0-44.0 [facility] Comment on above: Performed By: #### 2 4317-0 #### [facility] [address] [place] [address] 20512 MCH 29.8 pcg Normal 27.0-34.0 [facility] Comment on above: Performed By: #### 2 4317-0 #### [facility] [address] [place] [address] 87850 MCHC (RBC) [Mass/Vol] 33.0 g/dL Normal 32.0-36.0 [facility] Comment on above: Performed By: #### 2 4317-0 #### [facility] [address] [place] [address] 89626 MCV (RBC) [Entitic vol] 90.4 fL Normal 80.0-97.0 [facility] Comment on above: Performed By: #### 2 4317-0 #### [facility] [address] [place] [address] 52171 Monocytes (Bld) [#/Vol] 1.10 10*3/uL High 0.00-0.90 [facility] Comment on above: Performed By: #### 2 4317-0 #### [facility] [address] [place] [address] 99579 Monocytes/100 WBC (Bld) 9.8 % Normal 0.0-12.0 [facility] Comment on above: Performed By: #### 2 4317-0 #### [facility] [address] [facility] [place] [address] Neutrophils Absolute 8.50 K/mcL High 1.80-7.70 [facility] Comment on above: Performed By: #### 2 4317-0 #### [facility] [address] [facility] [place] [address] Neutrophils/100 WBC (Bld) 77.8 % High 40.0-70.0 [facility] Comment on above: Performed By: #### 2 4317-0 #### [facility] [address] [place] [address] 49230 Platelet mean volume (Bld) [Entitic vol] 7.1 fL Normal 6.2-12.1 [facility] Comment on above: Performed By: #### 2 4317-0 #### [facility] [address] [place] [address] 08808 Platelets (Bld) [#/Vol] 379 10*3/uL Normal 142-424 [facility] Comment on above: Performed By: #### 2 4317-0 #### [facility] [address] [place] [address] 43533 RBC (Bld) [#/Vol] 5.08 10*6/uL Normal 4.30-5.70 [facility] Comment on above: Performed By: #### 2 4317-0 #### [facility] [address] [place] [address] 77520 WBC (Bld) [#/Vol] 10.9 10*3/uL High 4.6-10.2 [facility] Comment on above: Performed By: #### 2 4317-0 #### [facility] [address] [place] [address] Cardiovascular Lab Reporton 01-29-2021 Cardiovascular Lab Report [facility] Patient Name: [facility] MR #: [id number] Physician: Adriana Huff, Department of M.D. Medicine Service Date: 01/28/2021 Division of Birthdate: 1960 Cardiology Room #: [facility] Services [address] [place] [address] [address] [id number] Cardiovascular Laboratory Report FINAL IMPRESSIONS: 1. Yjqu-uk-pzfttylr single-vessel coronary artery disease. 2. Mildly reduced global left ventricular systolic function by noninvasive imaging. 3. Normal right-sided heart pressures and pulmonary capillary wedge pressure. 4. Normal cardiac output/cardiac index. 5. Mild systemic hypertension. RECOMMENDATIONS: 1. Consider alternate etiologies of the patient's dyspnea mainly pulmonary. 2. Aggressive cardiovascular risk factor modification. 3. Optimization of medical management; aspirin, high-intensity statin therapy, a beta josé miguel, and an angiotensin-converting enzyme inhibitor are indicated. 4. Follow up with Dr. Huff and/or a nurse practitioner in the [place] outpatient setting in the next 2 to 3 months. 5. Follow up with Dr. Fatima as scheduled; consider referral to a pillowcase maker as clinically appropriate. PROCEDURES: Ultrasound-guided access to [...] right internal jugular vein was obtained. A 6-Bahraini 11 cm sheath was inserted without difficulty. [...] to access the left radial artery. A 6-Bahraini glide sheath was inserted without difficulty. Bilateral [...] Huff M.D. Date Trans: 01/29/2021 02:16 A/wai [id number] cc: Alek Fatima M.D. [address], [facility] [address] Normal [facility] Vital Signs Date Time Vital Sign Value Performing Clinician Rayi michel 05-19-2024 10:44-0400 Body temperature 97.5 [degF] MARYANNE Kamara MD Work Phone: [facility] 05-19-2024 10:44-0400 Diastolic blood pressure 92 mm[Hg] MARYANNE Kamara MD Work Phone: [facility] 05-19-2024 10:44-0400 Heart rate 80 /min MARYANNE Kamara MD Work Phone: [facility] 05-19-2024 10:44-0400 Respiratory rate 16 /min MARYANNE Kamara MD Work Phone: [facility] 05-19-2024 10:44-0400 SaO2% (BldA) [Mass fraction] 100 % MARYANNE Kamara MD Work Phone: [facility] 05-19-2024 10:44-0400 Systolic blood pressure 138 mm[Hg] MARYANNE Kamara MD Work Phone: [facility] 04-28-2024 09:51-0400 Body mass index (BMI) [Ratio] 27.33 kg/m2 MARYANNE Kamara MD Work Phone: [facility] 04-28-2024 09:51-0400 Body temperature 98.2 [degF] MARYANNE Kamara MD Work Phone: [facility] 04-28-2024 09:51-0400 Body weight 86.4 kg MARYANNE Kamara MD Work Phone: [facility] 04-28-2024 09:51-0400 Diastolic blood pressure 87 mm[Hg] MARYANNE Kamara MD Work Phone: [facility] 04-28-2024 09:51-0400 Heart rate 81 /min MARYANNE Kamara MD Work Phone: [facility] 04-28-2024 09:51-0400 Respiratory rate 16 /min MARYANNE Kamara MD Work Phone: [facility] 04-28-2024 09:51-0400 SaO2% (BldA) [Mass fraction] 100 % MARYANNE Kamara MD Work Phone: [facility] 04-28-2024 09:51-0400 Systolic blood pressure 146 mm[Hg] MARYANNE Kamara MD Work Phone: [facility] 11-03-2023 12:30-0400 Body height 177.8 cm Pacc 9 Work Phone: [facility] 11-03-2023 12:30-0400 Body temperature 97.2 [degF] Pacc 9 Work Phone: [facility] 11-03-2023 12:30-0400 Body weight 86.8 kg Pacc 9 Work Phone: [facility] 11-03-2023 12:30-0400 Diastolic blood pressure 82 mm[Hg] Pacc 9 Work Phone: [facility] 11-03-2023 12:30-0400 Heart rate 87 /min Pacc 9 Work Phone: [facility] 11-03-2023 12:30-0400 SaO2% (BldA) [Mass fraction] 99 % Pacc 9 Work Phone: [facility] 11-03-2023 12:30-0400 Systolic blood pressure 117 mm[Hg] Pacc 9 Work Phone: [facility] 10-02-2023 13:36-0500 Body height 177.8 cm Roxana Bah MD Work Phone: [facility] 10-02-2023 13:36-0500 Body weight 87.25 kg Roxana Bah MD Work Phone: [facility] 10-02-2023 13:36-0500 Diastolic blood pressure 96 mm[Hg] Roxana Bah MD Work Phone: [facility] 10-02-2023 13:36-0500 Heart rate 66 /min Roxana Bah MD Work Phone: [facility] 10-02-2023 13:36-0500 Systolic blood pressure 154 mm[Hg] Roxana Bah MD Work Phone: [facility] 08-31-2023 09:12-0500 Diastolic blood pressure 88 mm[Hg] Cesia WEEKS [facility] 08-31-2023 09:12-0500 Mean blood pressure 102 mm[Hg] Cesia WEEKS [facility] 08-31-2023 09:12-0500 Systolic blood pressure 131 mm[Hg] Cesia WEEKS [facility] 08-31-2023 09:06-0500 Blood Pressure Location Cesia WEEKS [facility] 08-31-2023 09:06-0500 Diastolic blood pressure 90 mm[Hg] Cesia WEEKS [facility] 08-31-2023 09:06-0500 Heart rate 68 /min Cesia WEEKS [facility] 08-31-2023 09:06-0500 Respiratory rate 16 /min Cesia WEEKS [facility] 08-31-2023 09:06-0500 Systolic blood pressure 145 mm[Hg] Cesia WEEKS [facility] 08-25-2023 15:20-0500 Diastolic blood pressure 84 mm[Hg] Cesia WEEKS [facility] 08-25-2023 15:20-0500 Heart rate 82 /min Cesia WEEKS [facility] 08-25-2023 15:20-0500 Systolic blood pressure 128 mm[Hg] Cesia WEEKS [facility] 08-10-2023 11:32-0500 Diastolic blood pressure 105 mm[Hg] Cesia WEEKS [facility] 08-10-2023 11:32-0500 Mean blood pressure 117 mm[Hg] Cesia WEEKS [facility] 08-10-2023 11:32-0500 Systolic blood pressure 142 mm[Hg] Cesia WEEKS [facility] 08-10-2023 11:26-0500 Blood Pressure Location Cesia WEEKS [facility] 08-10-2023 11:26-0500 Diastolic blood pressure 106 mm[Hg] Cesia WEEKS [facility] 08-10-2023 11:26-0500 Heart rate 80 /min Cesia WEEKS [facility] 08-10-2023 11:26-0500 Respiratory rate 16 /min Cesia WEEKS [facility] 08-10-2023 11:26-0500 Systolic blood pressure 144 mm[Hg] Cesia EWEKS [facility] Encounters Encounter Date Encounter Type Care Provider Facility Start: 05-23-2024 End: 05-23-2024 Telephone encounter Roxy Armstrong RN Radiation Oncology Comment on above: Orders Start: 05-20-2024 End: 05-23-2024 Telephone encounter Mich Kamara MD Work Phone: Radiation Oncology Start: 05-19-2024 End: 05-19-2024 Patient encounter procedure [facility] Work Phone: Radiation Oncology Comment on above: Malignant neoplasm o f prostate (HCC) (Primary Dx) History of prostate cancer (Primary Dx) Start: 05-19-2024 End: 05-20-2024 ambulatory ALEK Donaldson Christy Facility:[facility] Start: 05-17-2024 End: 05-17-2024 Refill Katrina Warner APRN.NURSING HOME PHYSICIAN Work Phone: Urology Comment on above: Refill Request Start: 05-12-2024 End: 05-12-2024 ambulatory Mich KAMARA Facility:[facility] Start: 05-12-2024 End: 05-12-2024 Subsequent hospital visit by physician Arrival Time Radiology Work Phone: Radiology Pet CT Comment on above: Rising PSA following treatment for malignant neoplasm of prostate [R97.21] Start: 05-03-2024 End: 05-03-2024 Orders Only Charlene Reynoso [facility] Work Phone: Hematology/Oncology Start: 04-28-2024 End: 05-17-2024 Telephone encounter Mich Kamara MD Work Phone: Radiation Oncology Comment on above: Orders Nm Pet Request Start: 04-28-2024 End: 04-28-2024 ambulatory Divina Braswell LPN Radiation Oncology Comment on above: Patient Education Start: 04-28-2024 End: 04-28-2024 Patient encounter procedure Mich Kamara MD Work Phone: Radiation Oncology Comment on above: History of prostate cancer; Rising PSA following treatment for malignant neoplasm of prostate Start: 04-26-2024 End: 04-26-2024 ambulatory ALEK FATIMA Facility:[facility] Start: 04-20-2024 End: 04-20-2024 ambulatory VIRAL HERNANDEZ Not Available Start: 04-07-2024 End: 04-07-2024 Follow-up encounter Katrina Warner APRN.CNP Work Phone: Urology Comment on above: Encounter for follow -up surveillance of prostate cancer (Primary Dx); History of prostate cancer; Rising PSA following treatment for malignant neoplasm of prostate; PREETI (stress urinary incontinence), male; Erectile dysfunction following radical prostatectomy Start: 04-07-2024 End: 04-07-2024 Telemedicine consultation with patient Katrina Warner APRN.NURSING HOME PHYSICIAN Work Phone: Urology Start: 04-07-2024 End: 04-07-2024 ambulatory KATRINA WARNER Facility:[facility] Start: 03-31-2024 End: 03-31-2024 ambulatory [facility]K [facility] Facility:[facility] Start: 03-01-2024 End: 03-01-2024 ambulatory VIRAL HERNANDEZ Not Available Start: 12-30-2023 End: 12-30-2023 ambulatory KATRINA WARNER Facility:[facility] Start: 12-30-2023 End: 12-30-2023 Follow-up encounter Katrina Acostamarques OROZCO.NURSING HOME PHYSICIAN Work Phone: Urology Comment on above: Encounter for follow -up surveillance of prostate cancer (Primary Dx); History of prostate cancer; PREETI (stress urinary incontinence), male; Erectile dysfunction following radical prostatectomy Start: 12-30-2023 End: 12-30-2023 Telemedicine consultation with patient Katrina Warner APRN.NURSING HOME PHYSICIAN Work Phone: Urology Start: 12-29-2023 End: 12-29-2023 ambulatory [facility] Start: 12-25-2023 End: 12-25-2023 ambulatory ALEK FATIMA Facility:[facility] Start: 11-18-2023 End: 11-18-2023 ambulatory Katrina Warner APRN.NURSING HOME PHYSICIAN Work Phone: Urology Comment on above: Prostate cancer (HCC ) (Primary Dx); PREETI (stress urinary incontinence), male Start: 11-18-2023 End: 11-18-2023 Telemedicine consultation with patient Katrina Warner APRN.NURSING HOME PHYSICIAN Work Phone: [facility] Start: 11-16-2023 Telephone encounter Casi Fatima [facility] & Comment on above: Returning Patient's Call Start: 11-12-2023 Telephone encounter Casi Fatima [facility] & Comment on above: Returning Patient's Call Follow Up Phone Call Start: 11-10-2023 Telephone encounter Casi [facility]ima [facility] & Start: 11-06-2023 End: 11-06-2023 ambulatory ALEK M DEVANGChristy Facility:[facility] Start: 11-05-2023 End: 11-06-2023 ambulatory ROXANA BAH Facility:[facility] Start: 11-03-2023 End: 11-03-2023 ambulatory [facility] Facility:[facility] Start: 11-03-2023 End: 11-03-2023 Patient encounter procedure John RUIZ Work Phone: Urology Comment on above: Pre-op testing (Prim arnold Dx); Prostate cancer (HCC); Prostate disease Start: 11-03-2023 End: 11-03-2023 Patient encounter status John RUIZ Work Phone: [facility] Work Phone: Start: 11-03-2023 End: 11-03-2023 ambulatory JOHN HUMPHREYS Facility:[facility] Start: 11-03-2023 Encounter for other preprocedural examination JOHN HUMPHREYS [facility] Start: 11-03-2023 End: 11-03-2023 [facility] Main 9 Work Phone: Pre Anesthesia Comment on above: Pre-op evaluation (P rimary Dx); Malignant neoplasm of prostate (HCC); Cardiomyopathy in diseases classified elsewhere (HCC); Chronic ischemic heart disease; Chronic systolic (congestive) heart failure (HCC); Essential hypertension; Mixed hyperlipidemia; Paroxysmal atrial fibrillation (HCC) Start: 11-03-2023 End: 11-03-2023 Admission to establishment Pac Main 9 Work Phone: [facility] Start: 11-03-2023 End: 11-03-2023 Preprocedural examination done Pac Main 9 Work Phone: [facility] Work Phone: Start: 11-03-2023 End: 11-03-2023 ambulatory [facility] Facility:[facility] Start: 11-03-2023 Encounter for other preprocedural examination ROXANA BAH [facility] Start: 11-03-2023 End: 11-03-2023 Subsequent hospital visit by physician Card Injection Molecular Imaging Comment on above: Malignant neoplasm o f prostate (HCC) [C61] Start: 10-14-2023 End: 10-14-2023 ambulatory ALEK FATIMA Facility:[facility] Start: 10-08-2023 Orders Only Casi kruse [facility] & Comment on above: Congestive heart emma lure, unspecified HF chronicity, unspecified heart failure type (HCC) (Primary Dx) Start: 10-07-2023 Orders Only Casi kruse [facility] & Comment on above: Malignant neoplasm o f prostate (HCC) (Primary Dx) Start: 10-02-2023 End: 10-02-2023 ambulatory Roxana Bah MD Work Phone: Urology Start: 10-02-2023 End: 10-02-2023 Patient encounter procedure Roxana Bah MD Work Phone: Urology Comment on above: Prostate cancer (HCC ) (Primary Dx) Start: 09-14-2023 End: 09-14-2023 ambulatory Cesia Weeks Facility:[facility] Start: 09-14-2023 End: 09-14-2023 ambulatory MD Alek Fatima Work Phone: [facility] Work Phone: Start: 09-14-2023 End: 09-14-2023 Patient encounter procedure MD Alek Fatima Work Phone: [facility] [facility] Work Phone: Start: 09-02-2023 Telephone encounter Cesia Weeks MD Work Phone: Cancer [facility] Comment on above: Nm Pet Request Start: 08-31-2023 End: 08-31-2023 ambulatory ROXANA BAH Facility:[facility] Start: 08-31-2023 End: 09-01-2023 ambulatory Cesia WEEKS Facility:[facility] Start: 08-31-2023 End: 08-31-2023 Patient encounter procedure Cesia WEEKS [facility] [place] Start: 08-25-2023 End: 08-26-2023 ambulatory Cesia WEEKS [facility] Work Phone: Start: 08-25-2023 End: 08-25-2023 Departed Referred MD Cesia Weeks Work Phone: [facility] [place] Work Phone: Start: 08-25-2023 End: 08-25-2023 Patient encounter procedure Cesia WEEKS [facility] [place] Start: 08-10-2023 End: 08-11-2023 ambulatory Cesia WEEKS Facility:[facility] Start: 08-10-2023 End: 08-10-2023 Patient encounter procedure Cesia WEEKS [facility] [place] Start: 04-15-2023 ambulatory Cesia WEEKS Facility :[facility] [place] Start: 01-02-2023 End: 01-02-2023 ambulatory [facility] Start: 05-26-2022 End: 05-27-[address] ALEK FATIMA Facility:[facility] Start: 07-03-2021 Encounter for preprocedural laboratory examination DR ALEK FATIMA [facility] Start: 07-01-2021 End: 07-30-[address] ALEK FATIMA Facility:[facility] Start: 06-26-2021 End: 06-27-2021 ambulatory ALEK FATIMA [facility] Start: 06-26-2021 End: 06-27-2021 ambulatory CARYL ACEVEDO [facility] Start: 06-26-2021 End: 06-26-2021 Evaluation and management of inpatient [facility] Start: 06-26-2021 End: 06-26-2021 Subsequent hospital visit by physician Brice [facility] Comment on above: Pain Start: 06-24-2021 End: 06-24-[address] ALEK FATIMA Facility:[facility] Start: 06-24-2021 End: 06-24-2021 Encounter for preprocedural laboratory examination DR ALEK FATIMA Facility:[facility] Start: 06-03-2021 End: 06-03-2021 Documentation procedure Yohan Johnson MD Work Phone: [facility] Internal Medicine Virtual Comment on above: Pre-op Exam Start: 01-28-2021 End: 01-29-2021 ambulatory EHAB A ELTAHAWY Facility:[facility] Procedures Date Procedure Procedure Detail Performing Clinician Start: 11-03-2023 Urnls dip stick/tabl et reagent auto microscopy Bulk Order Provider Start: 11-03-2023 Antibody screen ROXANA BAH Comment on above: Order Comment: Speci men Type: BLOOD SPECIMENOrdering Facility: [facility] Address: [address] [place] [address] Performed By: #### T [id number] ####CC MAIN BLOOD BANKCLIA [id number] [place] [address] [place] Start: 11-03-2023 Myocardial spect mul tiple studies Roxana Bah MD Work Phone: Start: 10-02-2023 Urnls dip stick/tabl et rgnt auto w/o microscopy Bulk Order Provider Start: 09-14-2023 Positron emission tomography MD Alek Fatima Work Phone: Start: 08-25-2023 Transrectal biopsy o f prostate using ultrasound guidance Cesia WEEKS Start: 06-26-2021 XR FLUORO UP TO 1 HO UR (STATISTICS)(NO REPORT) Caryl Acevedo MD Work Phone: Cardiac catheter (ph ysical object) Cesia WEEKS Insertion of hip prosthesis Cesia WEEKS Structure of sinoatr ial node (body structure) Cesia WEEKS Plan of Treatment Date Care Activity Detail Author Start: 04-26-2029 Prostate specific an tigen measurement Prostate Cancer Screening Discussion [facility] Start: 03-31-2029 Prostate specific an tigen measurement Prostate Cancer Screening Discussion [facility] Start: 12-24-2028 Prostate specific an tigen measurement Prostate Cancer Screening Discussion [facility] Start: 11-05-2026 Diabetes Screening Diabetes Screenin mich [facility] Start: 11-02-2026 Diabetes Screening Diabetes Screenin g [facility] Start: 09-15-2024 End: 09-15-2024 ambulatory 09/15/2024 7:30 AM [facility] [address] [id number] Katrina Warner APRN.[address] [address] f/u virtual visit in 3 months. Urology Comment on above: f/u virtual visit in 3 months. Start: 06-27-2024 Diabetes Screening Diabetes Screenin mich [facility] Start: 06-06-2024 End: 06-06-2024 Patient encounter procedure Radiation Oncology Comment on above: Eligard Injection Follow up SIM treating pelvis MIKAL Start: 05-20-2024 End: 08-19-2024 CREATININE BLD CREATININE BLD Lab Routine Malignant neoplasm of prostate (HCC) Expected: 05/20/2024 (Approximate), Expires: 08/19/2024 [facility] Work Phone: Comment on above: Expected: 05/20/2024 (Approximate), Expires: 08/19/2024 Start: 05-19-2024 End: 05-19-2024 Patient encounter procedure 05/19/2024 11:30 AM EDT Office Visit Radiation Oncology [address] [place] [address] Mich Kamara MD [address] [place] [address] SIM treating pelvis MIKAL [facility] Comment on above: SIM treating pelvis MIKAL Start: 05-19-2024 End: 05-19-2024 Patient encounter procedure Radiation Oncology Comment on above: Follow up after PET Sim Consent and Elig alyssa Injection Start: 05-12-2024 End: 05-12-2024 Patient encounter procedure 05/12/2024 1:30 PM EDT Appointment Radiology Pet CT [address] [place] [address] [place] [address] Comment on above: PSMA PET Start: 05-07-2024 End: 08-06-2024 Prostate specific Ag [Mass/volume] in Serum or Plasma PROSTATE-SPECIFIC ANTIGEN DIAGNOSTIC Lab Routine History of prostate cancer Rising PSA following treatment for malignant neoplasm of prostate Expected: 05/07/2024 (Approximate), Expires: 08/06/2024 [facility] Work Phone: Comment on above: Expected: 05/07/2024 (Approximate), Expires: 08/06/2024 Start: 04-03-2024 Covid-19 Vaccine ( season) Covid-19 Vaccine () [facility] Start: 04-03-2024 Covid-19 Vaccine ( season) Covid-19 Vaccine () [facility] Start: 04-03-2024 Influenza vaccination [facility] Start: 03-31-2024 End: 06-30-2024 Prostate specific Ag [Mass/volume] in Serum or Plasma PROSTATE-SPECIFIC ANTIGEN DIAGNOSTIC Lab Routine History of prostate cancer Expected: 03/31/2024 (Approximate), Expires: 06/30/2024 [facility] Work Phone: Comment on above: Expected: 03/31/2024 (Approximate), Expires: 06/30/2024 Start: 01-01-2024 End: 04-01-2024 Prostate specific Ag [Mass/volume] in Serum or Plasma PROSTATE-SPECIFIC ANTIGEN DIAGNOSTIC Lab Routine Prostate cancer (HCC) Expected: 01/01/2024 (Approximate), Expires: 04/01/2024 [facility] Work Phone: Comment on above: Expected: 01/01/2024 (Approximate), Expires: 04/01/2024 Start: 11-23-2023 Advance Directive Discussion Advance Directive Discussion [facility] Start: 08-03-2023 Behavioral Health Screening Behavioral Health Screening [facility] Start: 08-03-2023 Depression Assessment Depression Ass essment [facility] Start: 04-03-2023 Covid-19 Vaccine ( season) Covid-19 Vaccine ( season) [facility] Start: 04-03-2023 Influenza vaccination Influenza Vacc ine (#1) [facility] Start: 06-27-2022 Hypertension/CHF/CAD Annual BMP Blood Test Hypertension/CHF/CAD Annual BMP Blood Test [facility] Start: 06-03-2022 Hypertension/CHF/CAD Annual BMP Blood Test Hypertension/CHF/CAD Annual BMP Blood Test [facility] Start: 06-26-2021 End: 06-26-2021 Admission to same day surgery center 06/26/2021 Surgery Operating Room Caryl Acevedo MD [address] [facility] [address] [place] [address] ARTHROPLASTY HIP TOTAL RIGHT ANTERIOR [19329 (CPT )] [facility] Comment on above: ARTHROPLASTY HIP TOT AL RIGHT ANTERIOR [29334 (CPT )] Start: 06-26-2021 End: 06-26-2021 Arthrp acetblr/prox fem prostc agrft/algrft ARTHROPLASTY HIP TOTAL ANTERIOR Unilateral primary osteoarthritis, right hip 06/26/2021 6:30 AM EST [facility] Start: 06-26-2021 Subsequent hospital visit by physician 06/26/2021 Hospital Encounter Operating Room [facility] Start: 05-03-2021 COVID-19 Vaccine (3 - Booster for Pfizer series) COVID-19 Vaccine (3 - Booster for Pfizer series) [facility] Start: 04-27-2021 Adolescent depressio n screening assessment Depression Screening [facility] Start: 04-27-2021 Depression Screening Depression Scre ening [facility] Start: 04-27-2021 Hepatitis C screening Hepatitis C Sc reening [facility] Start: 04-27-2021 HIV screening HIV Screening [facility] Start: 04-27-2021 Lipid panel Cholesterol Sc reening (Lipid Panel) [facility] Start: 04-27-2021 Screening for malign ant neoplasm of colon Colorectal Cancer Screening: Colonoscopy [facility] Start: 04-27-2021 Social Influencers o f Health Screening Social Influencers of Health Screening [facility] Start: 04-03-2021 Influenza vaccination Influenza Vacc ine (#1) [facility] Start: 2018 RSV Vaccine (1 - 1-d ose 60+ series) RSV Vaccine (1 - 1-dose 60+ series) [facility] Start: 2018 RSV Vaccine (1 - Ris k 60-74 years 1-dose series) RSV Vaccine (1 - Risk 60-74 years 1-dose series) [facility] Start: 2013 Prostate specific an tigen measurement Prostate Cancer Screening Discussion [facility] Start: 2008 Shingrix Vaccine (1 of 2) Sky grix Vaccine (1 of 2) [facility] Start: 2008 Zoster Vaccines (1 of 2) Zoste r Vaccines (1 of 2) [facility] Start: 11-23-2003 Screening for malign ant neoplasm of colon [facility] Start: 1993 Lipid panel Lipid Screening [facility] Start: 1977 DTaP,Tdap,and Td Vac cines (1 - Tdap) DTaP,Tdap,and Td Vaccines (1 - Tdap) [facility] Start: 1977 Urine microalbumin profile DTa P,Tdap,Td Vaccine (1 - Tdap) [facility] Start: 1976 Annual PCP Team [employer] lianne Disease Visit Annual PCP Team Chronic Disease Visit [facility] Start: 1976 Anxiety Screening Anxiety Screening [facility] Start: 1976 BP Controlled (<130/80) BP Con trolled (<130/80) [facility] Start: 1976 Depression Screening Depression Scre ening [facility] Start: 1976 Hepatitis B surface antibody level LDL Cholesterol [facility] Start: 1976 Hepatitis C screening Hepatitis C Sc reening [facility] Start: 1976 HIV screening HIV Screening [facility] Start: 1976 Spirometry Spirometry [facility] Start: 1970 COVID-19 Vaccine (1) COVID-19 Vaccin e (1) [facility] Start: 1964 Pneumococcal vaccination Pneum ococcal Vaccine (1 of 2 - PCV) [facility] Start: 1964 Pneumococcal Vaccine : 65+ (1 of 2 - PCV) Pneumococcal Vaccine: 65+ (1 of 2 - PCV) [facility] Start: 1964 Pneumococcal Vaccine : Pediatrics (0 to 5 Years) and At-Risk Patients (6 to 64 Years) (1 of 2 - PPSV23) Pneumococcal Vaccine: Pediatrics (0 to 5 Years) and At-Risk Patients (6 to 64 Years) (1 of 2 - PPSV23) [facility] Bacteria identified in Urine by Culture URINE CULTURE Microbiology Routine Prostate cancer (HCC) Prostate disease Ordered: 11/03/2023 [facility] Work Phone: Comment on above: Ordered: 11/03/2023 CT Guidance for radi ation treatment of Unspecified body region CT SIM PLANNING RADIATION ONCOLOGY Radiology Routine History of prostate cancer Ordered: 05/19/2024 [facility] Work Phone: Comment on above: Ordered: 05/19/2024 End: 10-07-2024 Echocardiography ECHO Cardiology Routine Congestive heart failure, unspecified HF chronicity, unspecified heart failure type (HCC) 1 Occurrences starting 10/08/2023 until 10/07/2024 [facility] Work Phone: Comment on above: 1 Occurrences starti ng 10/08/2023 until 10/07/2024 End: 06-18-2025 MR Cervical spine WO and W contrast IV MRI CERVICAL SPINE WO/W IVCON Radiology Routine History of prostate cancer 1 Occurrences starting 05/19/2024 until 06/18/2025 [facility] Comment on above: 1 Occurrences starti ng 05/19/2024 until 06/18/2025 End: 11-05-2024 NM Heart Perfusion W stress and W radionuclide IV NM CARDIAC PERF STRESS/PHARM Radiology Routine Malignant neoplasm of prostate (HCC) 1 Occurrences starting 10/07/2023 until 11/05/2024 [facility] Work Phone: Comment on above: 1 Occurrences starti ng 10/07/2023 until 11/05/2024 End: 05-28-2025 PET+CT Guidance for localization of tumor of Whole body-- W 18F-FDG IV NM PET/CT PROSTATE WHOLE BODY IMAGING Radiology Routine Rising PSA following treatment for malignant neoplasm of prostate 1 Occurrences starting 04/28/2024 until 05/28/2025 [facility] Work Phone: Comment on above: 1 Occurrences starti ng 04/28/2024 until 05/28/2025 PET+CT Guidance for localization of tumor of Whole body-- W 18F-FDG IV NM PET/CT PROSTATE WHOLE BODY IMAGING Radiology Routine Rising PSA following treatment for malignant neoplasm of prostate 05/12/2024 2:55 PM EDT [facility] Work Phone: End: 06-22-2025 XR Facial bones 3 Views XR FACIAL BONES 3V AP/LAT/WEEKS Radiology Routine Prostate cancer (HCC) 1 Occurrences starting 05/23/2024 until 06/22/2025 [facility] Work Phone: Comment on above: 1 Occurrences starti ng 05/23/2024 until 06/22/2025 [facility] Immun[facility] Immunization Date Immunization Notes Care Provider Fa cility 11-01-2020 SARS-CoV-2 (COVID-19 ) mRNA BNT-162b2 vax Cesia WEEKS [facility] 10-11-2020 SARS-CoV-2 (COVID-19 ) mRNA BNT-162b2 vax Cesia WEEKS [facility] NEGATED: Highlighted row has not occurred!08-25-2023 influenza virus vaccine, unspecified formulation Cesia WEEKS [facility] Payers Date Payer Category Payer Medicare MEDICARE MEDICAR E A AND B [id number] 2023-Present [phone] [place] [address] Medicare [id number] 2023 Medicare [id number] 2023 Self-pay [id number] 2021 Unknown [id number] 2021 Unknown [id number] 2018 Unknown [employer] M [employer] [id number] 2018-Present [address] [place] [address] [id number] 1959 Self-pay [id number] 1959 Unknown [id number] 1958 Unknown [id number] 1958 Unknown [id number] 1958 Unknown [id number] 1958 Unknown [id number] [id number] 1958 Unknown [id number] [id number] 1958 Unknown [id number] [id number] 1958 Unknown [id number] [id number] 1958 Unknown [id number] [id number] 1958 Unknown [id number] [id number] 1958 Unknown [id number] [id number] 1958 Unknown [id number] [id number] 1958 Unknown [id number] [id number] Unknown [id number] [id number] Unknown [id number] Social History Date Type Detail Facility Tobacco smoking stat [facility] Unknown if ever smoked [facility] Work Phone: Start: 1960 Sex Assigned At Not on file T [facility] Start: 06-25-2021 End: 11-03-2023 Tobacco smoking status NMIS Never smoker [facility] Start: 06-25-2021 End: 04-28-2024 Alcohol intake Lifetime non-drinker (finding) [facility] Start: 06-25-2021 History SDOH Alcohol Frequency 1 [facility] Exposure to SARS-CoV -2 (event) Not sure [facility] [employer] Tobacco smoking status Never [facility] Start: 11-03-2023 End: 04-28-2024 Sex Assigned At Male [facility] Start: 1960 Sex Assigned At Male [facility] Start: 11-03-2023 Tobacco use and exposure Smokeless tobacco non-user [facility] Start: 11-03-2023 End: 04-28-2024 History of Social function [facility] Medical Equipment Procedure Code Equipment Code Equipment Origin al Text Equipment Identifier Dates Hip G7 Pps Ltd A cet Shell 56f - Sna - [id number] 21)[id number], [id number] FDA Start: 06-26-2021 Liner G7 Neutral Ve 36mm F - Sna - [id number] (21)NA, [id number] FDA Start: 06-26-2021 Complete Ho Collarless Sz 7.5 - Sna - [id number]/[facility], [id number] FDA Start: 06-26-2021 Hip Hd Blx D Fem 36mm +7mm - [facility] - [id number]/[facility], [id number] FDA Start: 06-26-2021 Functional Status Date Assessment Result Facility 08-31-2023 Functional Status N/A [facility] 08-25-2023 Functional Status N/A [facility] 08-10-2023 Functional Status N/A [facility] Clinical Notes 06-03-2021 to 05-23-2024 Telephone Encounter - Roxy Armstrong RN - 05/23/2024 3:14 PM EDTTelephone Encounter - Roxy Armstrong RN - 05/23/2024 3:14 PM EDTTelephone Encounter - Roxy Armstrong RN - 05/23/2024 1:38 PM EDT Note Date & Type Note Facility 05-23-2024 Telephone encounter Note Order faxed to [facility]. Roxy Armstrong RN [facility] 05-23-2024 Miscellaneous Notes Order faxed to [facility]. Roxy Armstrong RN Call received from [facility]- 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 They need to get an order for XRay ORbits to make sure he does not have any metal. Please sign and we will fax to [facility]. 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 They need to get an order for XRay ORbits to make sure he does not have any metal. Please sign and we will fax to [facility]. Roxy Armstrong RN [facility] 05-23-2024 Telephone encounter Note Order Signed. Roxy Armstrong RN [facility] 05-23-2024 Miscellaneous Notes Order Signed. Roxy Armstrong RN Please sign pended Creat for [facility]. Roxy Armstrong RN documented in this encounter [facility] 05-20-2024 Telephone encounter Note Please sign pended Creat for [facility]. Roxy Armstrong RN [facility] 05-19-2024 Note HNO ID: [id number] Author: Mich KAMARA MD Service: ? Author Type: Physician Type: Progress Notes Filed: 05/19/2024 11:22 Note Text: Radiation Oncology - Prostate Cancer New Patient/Consult Note PATIENT NAME: Sukhdeep Gamino PATIENT REQUESTING PROVIDER: Katrina Saul CNP OTHER PROVIDERS: Dr. Alek Fatima, Dr. Mayo Bah DIAGNOSIS: 63 year old male with prostate adenocarcinoma, initial PSA 7.9, biopsy Christine score 4 + 5 = 9 (grade group 5), clinical stage T2c, N0, M0, status post robotic radical prostatectomy and bilateral pelvic lymph node dissection for 11/05/2023, Eldridge 8 (4+4) pT3a pN0, with detectable and rising post prostatectomy PSA, PSA 04/26/2024 0.18. HPI: Patient returns after further workup including PSMA PET. PSMA PET 05/16/2024: IMPRESSION: PROSTATE: * No PSMA expressing prostate lesion. CITLALI DISEASE: * No PSMA expressing pelvic lymphadenopathy. METASTATIC DISEASE: * Indeterminate punctate PSMA avid peripancreatic node. ADDITIONAL FINDINGS: * Scattered non-PSMA avid liver lesions, grossly stable from 11/03/2023. * Non-specific bone lesions, including PSMA avid left C4 articular process, which is most likely degenerative, though more prominent than expected. This may be evaluated with cervical spine MR, per clinical discretion. Transcribe Date/Time: May 16 2024 8:28A Dictated by: MAISHA SPIVEY MD This examination was interpreted and the report reviewed and electronically signed by: MAISHA SPIVEY MD on May 16 2024 9:04AM EST Thank you for allowing us to participate in the care of your patient. Should there be any questions regarding this interpretation, please call [phone]. If you are unable to reach us at the number above, please feel free to contact [facility] at [phone]. Results-Findings * * *Final Report* * * DATE OF EXAM: May 12 2024 2:55PM NRN [id number] - NM PET/CT PROSTATE WB / PROCEDURE REASON: Rising PSA following treatment for malignant neoplasm of prostate * * * * Physician Interpretation * * * * RESULT: EXAMINATION: PROSTATE-SPECIFIC MEMBRANE ANTIGEN PET-CT CLINICAL HISTORY: History of prostate cancer with rising PSA being evaluated for recurrence. * Prostate Cancer Grade: Grade Group 5 (Eldridge score 4 + 5) * PSA: 0.18 ng/mL * Previous Therapy: Radical prostatectomy and bilateral pelvic lymph node dissection 11/05/2023 EXAM CATEGORY: Subsequent treatment strategy. TECHNIQUE: Radiopharmaceutical was administered intravenously followed later on by PET imaging from the skull vertex to thighs. Free breathing, low dose CT of the same body region was acquired without IV contrast for attenuation correction and anatomic localization. Unenhanced imaging is limited for the evaluation of some pathology and the acquired CT was not designed to produce diagnostic CT scan quality. Physiologic/non-pathologic uptake in some body regions could confound or obscure some pathology. * CT Dose-Length Product (DLP): 282 mGy*cm * CT Dose Reduction Employed: Yes * Injection site: Right Forearm-Antecubital * Injected activity: 9.3 mCi * Uptake Time: 51 minutes * Radiopharmaceutical: F-18 PSMA (Posluma) COMPARISON: PSMA PET/CT 09/14/2023 CORRELATION: No relevant prior imaging available RESULT: REFERENCES: Uptake by the injected radiopharmaceutical serves as a surrogate marker for prostate-specific membrane antigen (PSMA) expression. All reported standardized uptake values represent maximum SUV (SUVmax) per body weight, unless otherwise specified. SUV Reference Values: * Background Salivary Gland: SUVmax 19 * Blood Pool (Descending Aorta): SUVmax 2.5 * Background Liver: SUVmax 15 Localizer Images: No additional findings. HEAD AND NECK: Head: No radiotracer avid lesion or mass effect in the intracranial compartment. Aerodigestive Tract: No radiotracer avid lesion. Chronic sinusitis with opacification of the maxillary sinuses and right ethmoid air cells. Lymph Nodes: No radiotracer avid lymphadenopathy. Neck Soft Tissues: No radiotracer avid thyroid nodule. CHEST: Lungs AND Pleura: No radiotracer avid mass, nodule, or consolidation. No pleural effusion. Scattered bands of atelectasis/scarring. Calcified granuloma. Additional tiny nodules along the left major fissure are presumed intrapulmonary lymph nodes. Lymph Nodes: No radiotracer avid lymphadenopathy. Scattered mildly enlarged intrathoracic lymph nodes with low radiotracer uptake, likely reactive. Calcified nodes without uptake are presumed from remote granulomatous infection. Mediastinum: No radiotracer avid mass. Cardiovascular: Blood pool activity. No pericardial effusion. Cardiomegaly. Chest Wall: No radiotracer avid soft tissue lesion. ABDOMEN AND PELVIS: Hepatobiliary: No radiotracer avid lesion. -1.6 cm segment III hypoattenuating nontracer avid lesion, stable from SPECT 11/03/2023. -Pr (more content not included)... [facility] 05-19-2024 History of Present illness Narrative Radiation Oncology - Prostate Cancer New Patient/Consult Note PATIENT NAME: Sukhdeep Gamino PATIENT REQUESTING PROVIDER: Katrina Saul CNP OTHER PROVIDERS: Dr. Alek Fatima, Dr. Mayo Bah DIAGNOSIS: 63 year old male with prostate adenocarcinoma, initial PSA 7.9, biopsy Eldridge score 4 + 5 = 9 (grade group 5), clinical stage T2c, N0, M0, status post robotic radical prostatectomy and bilateral pelvic lymph node dissection for 11/05/2023, Eldridge 8 (4+4) pT3a pN0, with detectable and rising post prostatectomy PSA, PSA 04/26/2024 0.18. HPI: Patient returns after further workup including PSMA PET. PSMA PET 05/16/2024: IMPRESSION: PROSTATE: * No PSMA expressing prostate lesion. CITLALI DISEASE: * No PSMA expressing pelvic lymphadenopathy. METASTATIC DISEASE: * Indeterminate punctate PSMA avid peripancreatic node. ADDITIONAL FINDINGS: * Scattered non-PSMA avid liver lesions, grossly stable from 11/03/2023. * Non-specific bone lesions, including PSMA avid left C4 articular process, which is most likely degenerative, though more prominent than expected. This may be evaluated with cervical spine MR, per clinical discretion. Transcribe Date/Time: May 16 2024 8:28A Dictated by: MAISHA SPIVEY MD This examination was interpreted and the report reviewed and electronically signed by: MAISHA SPIVEY MD on May 16 2024 9:04AM EST Thank you for allowing us to participate in the care of your patient. Should there be any questions regarding this interpretation, please call [phone]. If you are unable to reach us at the number above, please feel free to contact [facility] at [phone]. Results-Findings * * *Final Report* * * DATE OF EXAM: May 12 2024 2:55PM NRN [id number] - NM PET/CT PROSTATE WB / PROCEDURE REASON: Rising PSA following treatment for malignant neoplasm of prostate * * * * Physician Interpretation * * * * RESULT: EXAMINATION: PROSTATE-SPECIFIC MEMBRANE ANTIGEN PET-CT CLINICAL HISTORY: History of prostate cancer with rising PSA being evaluated for recurrence. * Prostate Cancer Grade: Grade Group 5 (Eldridge score 4 + 5) * PSA: 0.18 ng/mL * Previous Therapy: Radical prostatectomy and bilateral pelvic lymph node dissection 11/05/2023 EXAM CATEGORY: Subsequent treatment strategy. TECHNIQUE: Radiopharmaceutical was administered intravenously followed later on by PET imaging from the skull vertex to thighs. Free breathing, low dose CT of the same body region was acquired without IV contrast for attenuation correction and anatomic localization. Unenhanced imaging is limited for the evaluation of some pathology and the acquired CT was not designed to produce diagnostic CT scan quality. Physiologic/non-pathologic uptake in some body regions could confound or obscure some pathology. * CT Dose-Length Product (DLP): 282 mGy*cm * CT Dose Reduction Employed: Yes * Injection site: Right Forearm-Antecubital * Injected activity: 9.3 mCi * Uptake Time: 51 minutes * Radiopharmaceutical: F-18 PSMA (Posluma) COMPARISON: PSMA PET/CT 09/14/2023 CORRELATION: No relevant prior imaging available RESULT: REFERENCES: Uptake by the injected radiopharmaceutical serves as a surrogate marker for prostate-specific membrane antigen (PSMA) expression. All reported standardized uptake values represent maximum SUV (SUVmax) per body weight, unless otherwise specified. SUV Reference Values: * Background Salivary Gland: SUVmax 19 * Blood Pool (Descending Aorta): SUVmax 2.5 * Background Liver: SUVmax 15 Localizer Images: No additional findings. HEAD AND NECK: Head: No radiotracer avid lesion or mass effect in the intracranial compartment. Aerodigestive Tract: No radiotracer avid lesion. Chronic sinusitis with opacification of the maxillary sinuses and right ethmoid air cells. Lymph Nodes: No radiotracer avid lymphadenopathy. Neck Soft Tissues: No radiotracer avid thyroid nodule. CHEST: Lungs & Pleura: No radiotracer avid mass, nodule, or consolidation. No pleural effusion. Scattered bands of atelectasis/scarring. Calcified granuloma. Additional tiny nodules along the left major fissure are presumed intrapulmonary lymph nodes. Lymph Nodes: No radiotracer avid lymphadenopathy. Scattered mildly enlarged intrathoracic lymph nodes with low radiotracer uptake, likely reactive. Calcified nodes without uptake are presumed from remote granulomatous infection. Mediastinum: No radiotracer avid mass. Cardiovascular: Blood pool activity. No pericardial effusion. Cardiomegaly. Chest Wall: No radiotracer avid soft tissue lesion. ABDOMEN AND PELVIS: Hepatobiliary: No radiotracer avid lesion. -1.6 cm segment III hypoattenuating nontracer avid lesion, stable from SPECT 11/03/2023. -Probable additional vaguely hypoattenuating lesions within the right hepatic lobe. -Stable hypoattenuating right hepatic dome lesion, presumed benign. Calcified granuloma. Spleen: No radiotracer avid lesion. No splenomegaly. Calcified granulomata. Pancreas: No radiotracer avid lesion. Adrenals: No radiotracer avid nodule. Urinary Tract: Physiologic radiotracer excretion in the urinary tract. No hydronephrosis. GI Tract: No radiotracer avid lesion. No bowel dilation. Moderate left inguinal hernia contains nondilated colon. Peritoneum: No radiotracer avid lesion. No ascites. Lymph Nodes: * Abdomen (including common iliac): Indeterminate punctate peripancreatic node posterior to the uncinate process (Max SUV 4.1). * Pelvis (below common iliac): No radiotracer avid lymphadenopathy. Vasculature: Blood pool activity. Vascular calcifications without an abdominal aortic aneurysm. Prostate & Seminal Vesicles: No radiotracer avid lesion in the prostatectomy bed. Pelvis Soft Tissues: No radiotracer avid lesion. MUSCULOSKELETAL: Bones: Scattered nonspecific lesions, as described: -Focal uptake along the left C4 articular process (Max SUV 5.4), new from 09/14/2023, but most likely to represent degenerative changes. -Right hip arthroplasty. Focal low level hypermetabolism along the superior greater trochanter is presumed reactive. -Stable sclerotic posterior right fifth rib lesion without PSMA uptake. -Osseous degenerative changes with additional low level PSMA uptake which is presumed reactive. Soft Tissues: No radiotracer avid lesion. The patient was diagnosed with prostate cancer and comes in today to discuss treatment options. Patient presented with an elevated PSA. PSA 07/29/2023 was 7.9, 12.9% free. Patient underwent transrectal ultrasound-guided biopsy on 08/25/2023, with finding of Eldridge grade group 5 (4+5) from the left lateral mid and left mid, other biopsies from the left aspect of the gland showing grade group 3 and 4. All right-sided biopsies negative He underwent further staging including: Bone scan 09/02/2023: No definite evidence of metastatic disease. PSMA PET 09/14/2023: Abnormal activity left aspect peripheral zone prostate consistent with prostate cancer. No evidence of local or distant metastatic disease. He underwent robotic assisted radical prostatectomy and bilateral pelvic lymph node dissection on 11/05/2023 Pathology demonstrating: FINAL DIAGNOSIS A. Prostate, radical prostatectomy: - Prostatic adenocarcinoma, Christine score 4+4=8 with tertiary pattern 5, Grade Group 4, with extraprostatic extension of neoplasm. - Margins of excision are free of neoplasm. A. Seminal vesicles, right and left, excision: - Negative for neoplasm. B. Bilateral pelvic lymph nodes, excision: - Negative for neoplasm, twenty-three lymph nodes. Radical Prostatectomy Morphology Summary Unfavorable histology: Present (Greater than 50%) Large cribriform pattern 4: Present Intraductal carcinoma: Absent BIANKA/gautam 11/10/2023 Block for additional Biomarkers/Molecular studies A20 Synoptic Report PROSTATE GLAND: Radical Prostatectomy 8th Edition - Protocol posted: 3PROSTATE GLAND: RESECTION - All Specimens SPECIMEN Procedure Radical prostatectomy Prostate Size Prostate Weight (Grams) 38.35 g Prostate Greatest Dimension (Centimeters) 5.2 cm Additional Prostate Dimension (Centimeters) 5.1 cm 3.5 cm TUMOR Histologic Type Acinar adenocarcinoma, conventional (usual) Histologic Grade Grade Grade group 4 (Christine Score 4 + 4 = 8) Intraductal Carcinoma (IDC) Not identified Cribriform Glands Present Treatment Effect Not identified TUMOR QUANTITATION Estimated Percentage of Prostate Involved by Tumor 21 - 30% Extraprostatic Extension (EPE) Present, nonfocal Location of Extraprostatic Extension Left posterior Urinary Bladder Neck Invasion Not identified Seminal Vesicle Invasion Not identified Lymphatic and / or Vascular Invasion Not Identified MARGINS Margin Status All margins negative for invasive carcinoma REGIONAL LYMPH NODES Regional Lymph Node Status All regional lymph nodes negative for tumor Number of Lymph Nodes Examined 23 pTNM CLASSIFICATION (AJCC 8th Edition) Reporting of pT, pN, and (when applicable) pM categories is based on information available to the pathologist at the time the report is issued. As per the AJCC (Chapter 1, 8th Ed.) it is the managing physician s responsibility to establish the final pathologic stage based upon all pertinent information, including but potentially not limited to this pathology report. pT Category pT3a pN Category pN0 . Patient did very well after prostatectomy. Continence improved in a fairly short interval currently only occasional stress urinary episodes wearing 1 pad per day with minimal incontinence notable. Denies dysuria. Having issues with erectile dysfunction using tadalafil. Patient's first post prostatectomy PSA in December was detectable at 0.03 and has been rising as noted below. PSA history: PSA (ng/mL) Date Value 04/26/2024 0.18 03/31/2024 0.12 12/25/2023 0.03 Previous Treatment for Prostate Cancer: See HPI, robotic radical prostatectomy November 2023 Genomic Testing: None The patient reports the following pertinent history: Urinary frequency (D/N): 4-6/1 Dysuria: No Incontinence: 2- Leaks with heavy activity (1-2 pads) 1 pad only very minimal incontinence uses for safety Hematuria: No Bowel Movement Frequency: 1/day Bowel Movement Quality: Normal Blood per Rectum: No Last Colonoscopy: na Androgen Deprivation: Preop bicalutamide Prior Radiation Therapy, Collagen Vascular Disease, or Inflammatory Bowel Disease: No Any implanted or external electric devices? No Currently on Anticoagulation: Yes History of Hip Replacement: No History of Prior TURP: No ALLERGIES Allergen Reactions Ciprofloxacin Hives Tadalafil (CIALIS) 5 mg tablet^Take 1 tablet by mouth once daily.^Disp: 90 tablet^Rfl: 1 acetaminophen (TYLENOL EXTRA STRENGTH) 500 mg tablet^Take 2 tablets by mouth every 8 hours as needed for pain for up to 40 doses.^Disp: 40 tablet^Rfl: 0 pravastatin (PRAVACHOL) 40 mg tablet^Take 40 mg by mouth daily at bedtime.^Disp: ^Rfl: warfarin (COUMADIN) 6 mg tablet^Take 1 tablet by mouth every afternoon.^Disp: ^Rfl: dilTIAZem CD (CARDIZEM CD, CARTIA XT) 120 mg 24 hr capsule^TAKE 1 CAPSULE BY MOUTH ONCE DAILY DIRECTED^Disp: ^Rfl: carvedilol (COREG) 25 mg tablet^TAKE 1 TABLET BY MOUTH IN THE MORNING AND AT BEDTIME^Disp: ^Rfl: lisinopril (ZESTRIL) 10 mg tablet^Take 10 mg by mouth once daily.^Disp: ^Rfl: fluticasone (FLONASE) 50 mcg/actuation nasal spray^1 [place].^Disp: ^Rfl: iv contrast (will be provided with radiology test)^MRI CSP Inject, intravenously, once for 1 dose. No IV access, insert saline lock prior to the beginning of sedation, infusion, injection of imaging exam. Discontinue saline lock post exam. If Pt. has a central line or IVAD, may access for administration according to line specific nursing protocol. Once exam is complete flush line and de-access according to line specific nursing protocol in the MR contrast administration guidelines link.^Disp: 1 Each^Rfl: 0 PAST MEDICAL HISTORY Diagnosis Date Asthma Atrial fibrillation (HCC) CHF (congestive heart failure) (HCC) PAST SURGICAL HISTORY Procedure Laterality Date SINUS SURGERY HX TOTAL HIP REPLACEMENT Right 2020 FAMILY HISTORY Problem Relation Age of Onset Breast Cancer Sister Social History Tobacco Use Smoking status: Never Smokeless tobacco: Never Substance Use Topics Alcohol use: Never Drug use: Never REVIEW OF SYSTEMS: GENERAL: feeling well without fatigue, no recent change in weight NECK: denies swelling or pain in neck RESPIRATORY: no cough, no wheezing or shortness of breath CARDIOVASCULAR: no chest pain, no palpitations MUSCULOSKELETAL: denies any painful or swollen joints, no muscle aches SKIN: no rash NEURO: no numbness or paresthesias and no weakness of the extremities As noted in HPI PHYSICAL EXAM: VS: BP 138/92 Pulse 80 Temp 36.4 C (97.5 F) Resp 16 SpO2 100% KARNOFSKY PERFORMANCE STATUS: 100 General Appearance: Alert and oriented. No acute distress. HEENT: NCAT. Sclera anicteric. PERRL. EOMI. Chest: No respiratory distress. Lungs clear to auscultation bilaterally. Abdomen: Soft. Nontender. Nondistended. Musculoskeletal: No edema. Normal ROM in extremities. No bone or spine tenderness. Neuro: Speech fluent. Gait normal. No focal deficits. Rectal: Deferred RADIOLOGY/LABORATORY DATA: see HPI ASSESSMENT/PLAN: Prostate adenocarcinoma, initial PSA 7.9, biopsy Christine score 4 + 5 = 9 (grade group 5), clinical stage T2c, N0, M0, status post robotic radical prostatectomy and bilateral pelvic lymph node dissection for 11/05/2023, Christine 8 (4+4) pT3a pN0, with detectable and rising post prostatectomy PSA, PSA 04/26/2024 0.18. PET scan demonstrates 2 equivocal areas of concern including a punctate peripancreatic node and uptake within the left C4 articular process felt to be degenerative though more prominent expected. It is doubtful whether further biopsy could delineate the peripancreatic node and this may well be just misregistration given other areas of physiologic uptake in proximity. However the area of uptake within C4 does seem to be more prominent than normal no obvious bony changes other than arthritic changes. Would like to obtain MRI for further delineation. Will plan to have him back after this. Signed by: Mich Kamara MD cc: Alek Fatima [address] [place] [address] Katrina Warner [address] [id number] documented in this encounter [facility] 05-17-2024 Telephone encounter Note Requested Prescriptions Pending Prescriptions Disp Refills Tadalafil (CIALIS) 5 mg tablet 90 tablet 1 Sig: Take 1 tablet by mouth once daily. [facility] 05-17-2024 Miscellaneous Notes Requested Prescriptions Pending Prescriptions Disp Refills Tadalafil (CIALIS) 5 mg tablet 90 tablet 1 Sig: Take 1 tablet by mouth once daily. documented in this encounter [facility] 05-12-2024 History of Present illness Narrative Radiology Service Progress Note DATE OF SERVICE: May 12, 2024 TIME: 1:37 PM PATIENT IDENTITY VERIFICATION COMPLETED USING TWO (2) STANDARD IDENTIFIERS: Name and Date of confirmed by patient verbally. FALL SCREENING: Has the patient had 2 falls in the last year or 1 fall with injury or currently using an Ambulatory Assistive Device (Walker, Cane, Wheelchair, Crutches, etc.)? No PATIENT GENDER DATA: Male EXAM: CT -CONTRAST INDUCED NEPHROPATHY RISK FACTORS: Not applicable CREATININE: Creatinine Date Value Ref Range Status 11/06/2023 1.23 (H) 0.73 - 1.22 mg/dL Final 11/05/2023 1.29 (H) 0.73 - 1.22 mg/dL Final 11/03/2023 1.29 (H) 0.73 - 1.22 mg/dL Final Estimated Glomerular Filtration Rate Date Value Ref Range Status 11/06/2023 66 >=60 mL/min/1.73m Final Comment: Estimated Glomerular Filtration Rate (eGFR) is calculated using the 2020 CKD-EPI creatinine equation. This equation utilizes serum creatinine, sex, and age as parameters. The creatinine assay has traceable calibration to isotope dilution-mass spectrometry. Refer to KDIGO guidelines for clinical interpretation. In patients with unstable renal function, e.g. those with acute kidney injury, the eGFR may not accurately reflect actual GFR. P.O.C.T. RESULTS: N/A May 12, 2024 TREATMENT: N/A IV SITE: Ambulatory: A peripheral IV was started in the Right antecubital site with a Angio cath: 22 gauge. IV SITE APPEARANCE: Clean,Dry and Intact SIGNATURE: Zenaida Winter RN PATIENT NAME: Sukhdeep Gamino DATE: May 12, 2024 TIME: 1:37 PM RADIOLOGY SERVICE PROGRESS NOTE SERVICE DATE: 05/12/2024 SERVICE TIME: 2:08 PM PATIENT IDENTITY VERIFICATION COMPLETED USING TWO (2) STANDARD IDENTIFIERS: Name and Date of confirmed by patient verbally POST EXAM PIV STATUS: Discontinued PROCEDURE TYPE: NM INJECT: PET/CT BODY SCAN. 9.3 mCi F18 FDG. No other medications given.. ADMINISTRATION TIME: 1330 PATIENT DISCHARGED TO: Ambulatory patient, left MD department area. A Diagnostic radioactive procedure has taken place, with no further precautions necessary other than routine body substance precautions. More information regarding radiation safety can be found using this link: [email or web address] [email or web address] SIGNATURE: RT Fiorella(Betty) PATIENT NAME: Sukhdeep Gamino DATE: May 12, 2024 TIME: 2:08 PM PAGER/CONTACT #: documented in this encounter [facility] 05-12-2024 Note HNO ID: [id number] Author: ZENAIDA WINTER RN Service: ? Author Type: Registered Nurse Type: Progress Notes Filed: 05/12/2024 13:38 Note Text: Radiology Service Progress Note DATE OF SERVICE: May 12, 2024 TIME: 1:37 PM PATIENT IDENTITY VERIFICATION COMPLETED USING TWO (2) STANDARD IDENTIFIERS: Name and Date of confirmed by patient verbally. FALL SCREENING: Has the patient had 2 falls in the last year or 1 fall with injury or currently using an Ambulatory Assistive Device (Walker, Cane, Wheelchair, Crutches, etc.)? No PATIENT GENDER DATA: Male EXAM: CT -CONTRAST INDUCED NEPHROPATHY RISK FACTORS: Not applicable CREATININE: Creatinine Date Value Ref Range Status 11/06/2023 1.23 (H) 0.73 - 1.22 mg/dL Final 11/05/2023 1.29 (H) 0.73 - 1.22 mg/dL Final 11/03/2023 1.29 (H) 0.73 - 1.22 mg/dL Final Estimated Glomerular Filtration Rate Date Value Ref Range Status 11/06/2023 66 >=60 mL/min/1.73m? Final Comment: Estimated Glomerular Filtration Rate (eGFR) is calculated using the 2020 CKD-EPI creatinine equation. This equation utilizes serum creatinine, sex, and age as parameters. The creatinine assay has traceable calibration to isotope dilution-mass spectrometry. Refer to KDIGO guidelines for clinical interpretation. In patients with unstable renal function, e.g. those with acute kidney injury, the eGFR may not accurately reflect actual GFR. P.O.C.T. RESULTS: N/A May 12, 2024 TREATMENT: N/A IV SITE: Ambulatory: A peripheral IV was started in the Right antecubital site with a Angio cath: 22 gauge. IV SITE APPEARANCE: Clean,Dry and Intact SIGNATURE: Zenaida Winter RN PATIENT NAME: Sukhdeep Gamino DATE: May 12, 2024 TIME: 1:37 PM [facility] 05-12-2024 Note HNO ID: [id number] Author: MAKENZIE REYNOSO RT(R) Service: ? Author Type: Technologist Type: Progress Notes Filed: 05/12/2024 14:09 Note Text: RADIOLOGY SERVICE PROGRESS NOTE SERVICE DATE: 05/12/2024 SERVICE TIME: 2:08 PM PATIENT IDENTITY VERIFICATION COMPLETED USING TWO (2) STANDARD IDENTIFIERS: Name and Date of confirmed by patient verbally POST EXAM PIV STATUS: Discontinued PROCEDURE TYPE: NM INJECT: PET/CT BODY SCAN. 9.3 mCi F18 FDG. No other medications given.. ADMINISTRATION TIME: 1330 PATIENT DISCHARGED TO: Ambulatory patient, left MD department area. A Diagnostic radioactive procedure has taken place, with no further precautions necessary other than routine body substance precautions. More information regarding radiation safety can be found using this link: [email or web address] [email or web address] 20Diagnostic%20Nuclear%20Medicine %[email or web address] SIGNATURE: RT Fiorella(R) PATIENT NAME: Sukhdeep Gamino DATE: May 12, 2024 TIME: 2:08 PM PAGER/CONTACT #: [facility] 04-28-2024 Telephone encounter Note Pharmacist: Will you please enter Eligard 45mg orders and route to Dr. Kamara? Eligard and SIM to be scheduled after PSMA PET which is pending insurance approval. Thanks Divina Braswell RN [facility] 04-28-2024 Miscellaneous Notes Pharmacist: Will you please enter Eligard 45mg orders and route to Dr. Kamara? Eligard and SIM to be scheduled after PSMA PET which is pending insurance approval. Thanks Divina Braswell RN documented in this encounter [facility] 04-28-2024 Telephone encounter Note PSMA Comments for Wiring Inspector: Joseph Gaming the patient need anesthesia: No Primary Insurance: Medicare B Effective Date: 04-26-24 Date of Initial PET: N/A Cancer Type: Prostate Cancer Date of Subsequent PET scan: Pend scheduling S1 ABN Required: No Diagnosis: Rising PSA following treatment for malignant neoplasm of prostate [R97.21] Initial/Subsequent: Subsequent Pathology: 11-05-23 Prostate, radical prostatectomy: - Prostatic adenocarcinoma, Christine score 4+4=8 Grade Group 4 Labs: 04-26-24 PSA 0.18 03-31-24 PSA 0.12 12-25-23 PSA 0.03 Clinical Notes Reviewed: 04-28-24 Rad Onc Date of last: Prostatectomy 11-05-23 Additional Information/Imaging: Flotufolastat F18 09-27-23 OSH Initial:No Subsequent: Yes. Date of Last Image: 09-27-23 OSH Scan: Positive Isotope used: F18 Flotufolastat Positive Scan Schedule as place of last (DOS) [facility] or Region Negative Scan Schedule at ANY [facility] site requested Isotope used: Region F-18 flotufolastat,18F flotufolastat Posluma MC GA68 PS[facility] PET 63514/LOCAMETZ (Gallium GA-68 Gozetotide) (6 mCi) A9800 - MC Posluma (Flotufolastat F18) (8mCi), [id number] - Region Auth#: Date Range: NPI: Member ID: Medicare Site/Contact: Case/Ref#: Notes: Route to [facility] or Requested Scheduling Pool: P PET VAULT INSTALLER [facility], P [facility]([place]), P JOSEPH HISTOLOGY MANAGER [facility] 04-28-2024 Miscellaneous Notes PSMA Comments for Wiring Inspector: Joseph Will the patient need anesthesia: No Primary Insurance: Medicare B Effective Date: 04-26-24 Date of Initial PET: N/A Cancer Type: Prostate Cancer Date of Subsequent PET scan: Pend scheduling S1 ABN Required: No Diagnosis: Rising PSA following treatment for malignant neoplasm of prostate [R97.21] Initial/Subsequent: Subsequent Pathology: 11-05-23 Prostate, radical prostatectomy: - Prostatic adenocarcinoma, Eldridge score 4+4=8 Grade Group 4 Labs: 04-26-24 PSA 0.18 03-31-24 PSA 0.12 12-25-23 PSA 0.03 Clinical Notes Reviewed: 04-28-24 Rad Onc Date of last: Prostatectomy 11-05-23 Additional Information/Imaging: Flotufolastat F18 09-27-23 OSH Initial:No Subsequent: Yes. Date of Last Image: 09-27-23 OSH Scan: Positive Isotope used: F18 Flotufolastat Positive Scan Schedule as place of last (DOS) MC or Region Negative Scan Schedule at ANY [facility] site requested Isotope used: Region F-18 flotufolastat,18F flotufolastat Posluma GA68 [facility] PET 47241/LOCAMETZ (Gallium GA-68 Gozetotide) (6 mCi) A9800 - Posluma (Flotufolastat F18) (8mCi), [id number] - Region Auth#: Date Range: NPI: Member ID: Medicare Site/Contact: Case/Ref#: Notes: Route to or Requested Scheduling Pool: P PET VAULT INSTALLER , P [facility]), [facility] This form is used for MAIN CAMPUS APPOINTMENTS ONLY. Is this request for a Main [place] PET scan appointment? Yes: Contract Sheltered Workshop Supervisor: OSWALDO Ramirez Requesting Person (Last Name, First Name): [place] Area Code + Phone/Pager: [phone] Who do we call to schedule this appointment? Other Contact: [facility] PET in [place], Route to Regine Reynoso to schedule. Requesting Staff [place] Area Code + Phone/Pager: [phone] PET Orders (A delay in scheduling will result if the orders are not present at time of review): Internal ADDITIONAL ACTION MAY BE REQUIRED IF PATIENTS OON INSURANCE OR SELF PAY COVERAGE HAS NOT BEEN CLEARED FOR REQUESTED APPOINTMENT. Scheduling: SUKHJINDER: As soon as insurance will allow What account will this PET appointment be linked to? P/F Type of PET: Oncology: Are there additional diagnostic CT scans required to be done at time of PET scan? No Is the request for a PET MR ? No What account will diagnostic testing appointment be linked to? P/F Will the patient need anesthesia? NO Send requests to P COORD REVIEW documented in this encounter [facility] 04-28-2024 Nurse Note Radiation Therapy - Patient Education Note PATIENT NAME: Sukhdeep Gamino PATIENT April 28, 2024 [facility] FACILITY/LOCATION: [facility] READINESS TO LEARN Cognitive Ability: Alert and oriented Motivation to learn: Interested Family Support: High - Very involved in pt care Instruction provide to: Patient and Spouse Patient learns best by: Multiple Methods Factors effecting learning: None Physical limitations effecting learning: None LEARNING RESPONSE Diagnosis: Pt simulated today for radiation therapy to pelvis. Education Topic/Teaching Points: Radiation therapy, Side effects, and OTV: Method of instruction: Written instruction/Handouts Verbal instruction Patient /Family response: Patient and family verbalized understanding of radiation treatments, side effects, OTV, and transportation. Follow-up plan: Patient instructed to call with any further issues Recommend - Recommend continued instruction and follow up as directed Contact information given. Supplemental material: Informational handouts on Bladder function, Diarrhea, Fatigue, Pelvic handout, Skin changes, and Eligard information, patient education binder. Referral (recommendation): None, Pt denied need for social work, van service, and voltage tester. Was PED reviewed? No Patient has an Onbody or Implanted device: No Signed by: Divina Braswell RN [facility] 04-28-2024 Nurse Note Radiation Therapy - Patient Education Note PATIENT NAME: Sukhdeep Gamino PATIENT April 28, 2024 [facility] FACILITY/LOCATION: [facility] READINESS TO LEARN Cognitive Ability: Alert and oriented Motivation to learn: Interested Family Support: High - Very involved in pt care Instruction provide to: Patient and Spouse Patient learns best by: Multiple Methods Factors effecting learning: None Physical limitations effecting learning: None LEARNING RESPONSE Diagnosis: Pt simulated today for radiation therapy to pelvis. Education Topic/Teaching Points: Radiation therapy, Side effects, and OTV: Method of instruction: Written instruction/Handouts Verbal instruction Patient /Family response: Patient and family verbalized understanding of radiation treatments, side effects, OTV, and transportation. Follow-up plan: Patient instructed to call with any further issues Recommend - Recommend continued instruction and follow up as directed Contact information given. Supplemental material: Informational handouts on Bladder function, Diarrhea, Fatigue, Pelvic handout, Skin changes, and Eligard information, patient education binder. Referral (recommendation): None, Pt denied need for social work, van service, and voltage tester. Was PED reviewed? No Patient has an Onbody or Implanted device: No Signed by: Divina Braswell RN documented in this encounter [facility] 04-28-2024 Telephone encounter Note This form is used for MAIN CAMPUS APPOINTMENTS ONLY. Is this request for a Main [place] PET scan appointment? Yes: [employer] Supervisor: OSWALDO Ramirez Requesting Person (Last Name, First Name): [place] Area Code + Phone/Pager: [phone] Who do we call to schedule this appointment? Other Contact: [facility] PET in [place], Route to [facility] to schedule. Requesting Staff Eng[place] Area Code + Phone/Pager: [phone] PET Orders (A delay in scheduling will result if the orders are not present at time of review): Internal ADDITIONAL ACTION MAY BE REQUIRED IF PATIENTS OON INSURANCE OR SELF PAY COVERAGE HAS NOT BEEN CLEARED FOR REQUESTED APPOINTMENT. Scheduling: SUKHJINDER: As soon as insurance will allow What account will this PET appointment be linked to? P/F Type of PET: Oncology: Are there additional diagnostic CT scans required to be done at time of PET scan? No Is the request for a PET MR ? No What account will diagnostic testing appointment be linked to? P/F Will the patient need anesthesia? NO Send requests to P [facility] 04-28-2024 History of Present illness Narrative Radiation Oncology - Prostate Cancer New Patient/Consult Note PATIENT NAME: Sukhdeep Gamnio PATIENT REQUESTING PROVIDER: Katrina Saul CNP OTHER PROVIDERS: Dr. Alek Fatima, Dr. Mayo Bah DIAGNOSIS: 63 year old male with prostate adenocarcinoma, initial PSA 7.9, biopsy Christine score 4 + 5 = 9 (grade group 5), clinical stage T2c, N0, M0, status post robotic radical prostatectomy and bilateral pelvic lymph node dissection for 11/05/2023, Christine 8 (4+4) pT3a pN0, with detectable and rising post prostatectomy PSA, PSA 04/26/2024 0.18. HPI: 63 year old male with prostate adenocarcinoma who presents for an opinion regarding the role of radiation therapy in the management of the patient's disease. Final recommendations will be communicated back to the requesting physician by way of the shared medical record, or letter to requesting physician via US mail. The patient was diagnosed with prostate cancer and comes in today to discuss treatment options. Patient presented with an elevated PSA. PSA 07/29/2023 was 7.9, 12.9% free. Patient underwent transrectal ultrasound-guided biopsy on 08/25/2023, with finding of Christine grade group 5 (4+5) from the left lateral mid and left mid, other biopsies from the left aspect of the gland showing grade group 3 and 4. All right-sided biopsies negative He underwent further staging including: Bone scan 09/02/2023: No definite evidence of metastatic disease. [facility] PET 09/14/2023: Abnormal activity left aspect peripheral zone prostate consistent with prostate cancer. No evidence of local or distant metastatic disease. He underwent robotic assisted radical prostatectomy and bilateral pelvic lymph node dissection on 11/05/2023 Pathology demonstrating: FINAL DIAGNOSIS A. Prostate, radical prostatectomy: - Prostatic adenocarcinoma, Eldridge score 4+4=8 with tertiary pattern 5, Grade Group 4, with extraprostatic extension of neoplasm. - Margins of excision are free of neoplasm. A. Seminal vesicles, right and left, excision: - Negative for neoplasm. B. Bilateral pelvic lymph nodes, excision: - Negative for neoplasm, twenty-three lymph nodes. Radical Prostatectomy Morphology Summary Unfavorable histology: Present (Greater than 50%) Large cribriform pattern 4: Present Intraductal carcinoma: Absent BIANKA/gautam 11/10/2023 Block for additional Biomarkers/Molecular studies A20 Synoptic Report PROSTATE GLAND: Radical Prostatectomy 8th Edition - Protocol posted: 3PROSTATE GLAND: RESECTION - All Specimens SPECIMEN Procedure Radical prostatectomy Prostate Size Prostate Weight (Grams) 38.35 g Prostate Greatest Dimension (Centimeters) 5.2 cm Additional Prostate Dimension (Centimeters) 5.1 cm 3.5 cm TUMOR Histologic Type Acinar adenocarcinoma, conventional (usual) Histologic Grade Grade Grade group 4 (Eldridge Score 4 + 4 = 8) Intraductal Carcinoma (IDC) Not identified Cribriform Glands Present Treatment Effect Not identified TUMOR QUANTITATION Estimated Percentage of Prostate Involved by Tumor 21 - 30% Extraprostatic Extension (EPE) Present, nonfocal Location of Extraprostatic Extension Left posterior Urinary Bladder Neck Invasion Not identified Seminal Vesicle Invasion Not identified Lymphatic and / or Vascular Invasion Not Identified MARGINS Margin Status All margins negative for invasive carcinoma REGIONAL LYMPH NODES Regional Lymph Node Status All regional lymph nodes negative for tumor Number of Lymph Nodes Examined 23 pTNM CLASSIFICATION (AJCC 8th Edition) Reporting of pT, pN, and (when applicable) pM categories is based on information available to the pathologist at the time the report is issued. As per the AJCC (Chapter 1, 8th Ed.) it is the managing physician s responsibility to establish the final pathologic stage based upon all pertinent information, including but potentially not limited to this pathology report. pT Category pT3a pN Category pN0 . Patient did very well after prostatectomy. Continence improved in a fairly short interval currently only occasional stress urinary episodes wearing 1 pad per day with minimal incontinence notable. Denies dysuria. Having issues with erectile dysfunction using tadalafil. Patient's first post prostatectomy PSA in December was detectable at 0.03 and has been rising as noted below. PSA history: PSA (ng/mL) Date Value 04/26/2024 0.18 03/31/2024 0.12 12/25/2023 0.03 Previous Treatment for Prostate Cancer: See HPI, robotic radical prostatectomy November 2023 Genomic Testing: None The patient reports the following pertinent history: Urinary frequency (D/N): 4-6/1 Dysuria: No Incontinence: 2- Leaks with heavy activity (1-2 pads) 1 pad only very minimal incontinence uses for safety Hematuria: No - - Total AUA Score: 2 Bowel Movement Frequency: 1/day Bowel Movement Quality: Normal Blood per Rectum: No Last Colonoscopy: na Androgen Deprivation: Preop bicalutamide Prior Radiation Therapy, Collagen Vascular Disease, or Inflammatory Bowel Disease: No Any implanted or external electric devices? No Currently on Anticoagulation: Yes History of Hip Replacement: No History of Prior TURP: No ALLERGIES Allergen Reactions Ciprofloxacin Hives Tadalafil (CIALIS) 5 mg tablet Take 1 tablet by mouth once daily. acetaminophen (TYLENOL EXTRA STRENGTH) 500 mg tablet Take 2 tablets by mouth every 8 hours as needed for pain for up to 40 doses. pravastatin (PRAVACHOL) 40 mg tablet Take 40 mg by mouth daily at bedtime. warfarin (COUMADIN) 6 mg tablet Take 1 tablet by mouth every afternoon. dilTIAZem CD (CARDIZEM CD, CARTIA XT) 120 mg 24 hr capsule TAKE 1 CAPSULE BY MOUTH ONCE DAILY DIRECTED carvedilol (COREG) 25 mg tablet TAKE 1 TABLET BY MOUTH IN THE MORNING AND AT BEDTIME lisinopril (ZESTRIL) 10 mg tablet Take 10 mg by mouth once daily. fluticasone (FLONASE) 50 mcg/actuation nasal spray 1 [place]. PAST MEDICAL HISTORY Diagnosis Date Asthma Atrial fibrillation (HCC) CHF (congestive heart failure) (HCC) PAST SURGICAL HISTORY Procedure Laterality Date SINUS SURGERY HX TOTAL HIP REPLACEMENT Right 2020 FAMILY HISTORY Problem Relation Age of Onset Breast Cancer Sister Social History Tobacco Use Smoking status: Never Smokeless tobacco: Never Substance Use Topics Alcohol use: Never Drug use: Never REVIEW OF SYSTEMS: GENERAL: feeling well without fatigue, no recent change in weight NECK: denies swelling or pain in neck RESPIRATORY: no cough, no wheezing or shortness of breath CARDIOVASCULAR: no chest pain, no palpitations MUSCULOSKELETAL: denies any painful or swollen joints, no muscle aches SKIN: no rash NEURO: no numbness or paresthesias and no weakness of the extremities As noted in HPI PHYSICAL EXAM: VS: BP 146/87 Pulse 81 Temp 36.8 C (98.2 F) Resp 16 Wt 86.4 kg (190 lb 7.6 oz) SpO2 100% BMI 27.33 kg/m KARNOFSKY PERFORMANCE STATUS: 100 General Appearance: Alert and oriented. No acute distress. HEENT: NCAT. Sclera anicteric. PERRL. EOMI. Chest: No respiratory distress. Lungs clear to auscultation bilaterally. Abdomen: Soft. Nontender. Nondistended. Musculoskeletal: No edema. Normal ROM in extremities. No bone or spine tenderness. Neuro: Speech fluent. Gait normal. No focal deficits. Rectal: Deferred RADIOLOGY/LABORATORY DATA: see HPI ASSESSMENT/PLAN: Prostate adenocarcinoma, initial PSA 7.9, biopsy Eldridge score 4 + 5 = 9 (grade group 5), clinical stage T2c, N0, M0, status post robotic radical prostatectomy and bilateral pelvic lymph node dissection for 11/05/2023, Christine 8 (4+4) pT3a pN0, with detectable and rising post prostatectomy PSA, PSA 04/26/2024 0.18. Patient presents with high risk adenocarcinoma prostate, status post prostatectomy with detectable and rising PSA. Staging prior to surgery unremarkable. No evidence of lymph node metastasis, and negative margins, however prostatic extracapsular extension seen. Given rising PSA I do feel patient would benefit from consideration of salvage radiation. Given his risk factors but also consider 6 to 12 months of ADT. Would recommend [facility] PET prior to initiating treatment. The role of radiation in this situation discussed at length. Potential acute and long-term risks of radiation discussed at length. Patient expressed an understanding of the information presented. Signed by: Mich Kamara MD cc: Alek Fatima [address] [place] [address] Katrina Warner [address] [id number] documented in this encounter [facility] 04-28-2024 Note HNO ID: [id number] Author: Mich KAMARA MD Service: ? Author Type: Physician Type: Progress Notes Filed: 05/04/2024 14:07 Note Text: Radiation Oncology - Prostate Cancer New Patient/Consult Note PATIENT NAME: Sukhdeep Gamino PATIENT REQUESTING PROVIDER: Katrina Saul CNP OTHER PROVIDERS: Dr. Alek Fatima, Dr. Mayo Bah DIAGNOSIS: 63 year old male with prostate adenocarcinoma, initial PSA 7.9, biopsy Christine score 4 + 5 = 9 (grade group 5), clinical stage T2c, N0, M0, status post robotic radical prostatectomy and bilateral pelvic lymph node dissection for 11/05/2023, Christine 8 (4+4) pT3a pN0, with detectable and rising post prostatectomy PSA, PSA 04/26/2024 0.18. HPI: 63 year old male with prostate adenocarcinoma who presents for an opinion regarding the role of radiation therapy in the management of the patient's disease. Final recommendations will be communicated back to the requesting physician by way of the shared medical record, or letter to requesting physician via [place] mail. The patient was diagnosed with prostate cancer and comes in today to discuss treatment options. Patient presented with an elevated PSA. PSA 07/29/2023 was 7.9, 12.9% free. Patient underwent transrectal ultrasound-guided biopsy on 08/25/2023, with finding of Eldridge grade group 5 (4+5) from the left lateral mid and left mid, other biopsies from the left aspect of the gland showing grade group 3 and 4. All right-sided biopsies negative He underwent further staging including: Bone scan 09/02/2023: No definite evidence of metastatic disease. [facility] PET 09/14/2023: Abnormal activity left aspect peripheral zone prostate consistent with prostate cancer. No evidence of local or distant metastatic disease. He underwent robotic assisted radical prostatectomy and bilateral pelvic lymph node dissection on 11/05/2023 Pathology demonstrating: FINAL DIAGNOSIS A. Prostate, radical prostatectomy: - Prostatic adenocarcinoma, Christine score 4+4=8 with tertiary pattern 5, Grade Group 4, with extraprostatic extension of neoplasm. - Margins of excision are free of neoplasm. A. Seminal vesicles, right and left, excision: - Negative for neoplasm. B. Bilateral pelvic lymph nodes, excision: - Negative for neoplasm, twenty-three lymph nodes. Radical Prostatectomy Morphology Summary Unfavorable histology: Present (Greater than 50%) Large cribriform pattern 4: Present Intraductal carcinoma: Absent BIANKA/gautam 11/10/2023 Block for additional Biomarkers/Molecular studies A20 Synoptic Report PROSTATE GLAND: Radical Prostatectomy 8th Edition - Protocol posted: 3PROSTATE GLAND: RESECTION - All Specimens SPECIMEN Procedure Radical prostatectomy Prostate Size Prostate Weight (Grams) 38.35 g Prostate Greatest Dimension (Centimeters) 5.2 cm Additional Prostate Dimension (Centimeters) 5.1 cm 3.5 cm TUMOR Histologic Type Acinar adenocarcinoma, conventional (usual) Histologic Grade Grade Grade group 4 (Eldridge Score 4 + 4 = 8) Intraductal Carcinoma (IDC) Not identified Cribriform Glands Present Treatment Effect Not identified TUMOR QUANTITATION Estimated Percentage of Prostate Involved by Tumor 21 - 30% Extraprostatic Extension (EPE) Present, nonfocal Location of Extraprostatic Extension Left posterior Urinary Bladder Neck Invasion Not identified Seminal Vesicle Invasion Not identified Lymphatic and / or Vascular Invasion Not Identified MARGINS Margin Status All margins negative for invasive carcinoma REGIONAL LYMPH NODES Regional Lymph Node Status All regional lymph nodes negative for tumor Number of Lymph Nodes Examined 23 pTNM CLASSIFICATION (AJCC 8th Edition) Reporting of pT, pN, and (when applicable) pM categories is based on information available to the pathologist at the time the report is issued. As per the AJCC (Chapter 1, 8th Ed.) it is the managing physician?s responsibility to establish the final pathologic stage based upon all pertinent information, including but potentially not limited to this pathology report. pT Category pT3a pN Category pN0 . Patient did very well after prostatectomy. Continence improved in a fairly short interval currently only occasional stress urinary episodes wearing 1 pad per day with minimal incontinence notable. Denies dysuria. Having issues with erectile dysfunction using tadalafil. Patient's first post prostatectomy PSA in December was detectable at 0.03 and has been rising as noted below. PSA history: PSA (ng/mL) Date Value 04/26/2024 0.18 03/31/2024 0.12 12/25/2023 0.03 Previous Treatment for Prostate Cancer: See HPI, robotic radical prostatectomy November 2023 Genomic Testing: None The patient reports the following pertinent history: Urinary frequency (D/N): 4-6/1 Dysuria: No Incontinence: 2- Leaks with heavy activity (1-2 pads) 1 (more content not included)... [facility] 04-28-2024 Nurse Note AUA= 2 Pacemaker/Defibrillator?N Previous Cancer(s)?N Previous Radiation?N Lupus/Scleroderma?N On body monitoring device?N [facility] 04-28-2024 Nurse Note AUA= 2 Pacemaker/Defibrillator?N Previous Cancer(s)?N Previous Radiation?N Lupus/Scleroderma?N On body monitoring device?N documented in this encounter [facility] 04-28-2024 Note Education (MARIBEL) SUKHDEEP GAMINO ([id number]) 1960 [place] Date Time Provider Department 04/28/24 DIVINA BRASWELL Reason for Visit: Patient Education [91] Visit Notes: >> Divina Braswell LPN [place] Apr 28, 2024 3:21 PM Status: Signed Radiation Therapy - Patient Education Note PATIENT NAME: Sukhdeep Gamino PATIENT April 28, 2024 [facility] FACILITY/LOCATION: [facility] READINESS TO LEARN Cognitive Ability: Alert and oriented Motivation to learn: Interested Family Support: High - Very involved in pt care Instruction provide to: Patient and Spouse Patient learns best by: Multiple Methods Factors effecting learning: None Physical limitations effecting learning: None LEARNING RESPONSE Diagnosis: Pt simulated today for radiation therapy to pelvis. Education Topic/Teaching Points: Radiation therapy, Side effects, and OTV: Method of instruction: Written instruction/Handouts Verbal instruction Patient /Family response: Patient and family verbalized understanding of radiation treatments, side effects, OTV, and transportation. Follow-up plan: Patient instructed to call with any further issues Recommend - Recommend continued instruction and follow up as directed Contact information given. Supplemental material: Informational handouts on Bladder function, Diarrhea, Fatigue, Pelvic handout, Skin changes, and Kiran information, patient education binder. Referral (recommendation): None, Pt denied need for social work, van service, and voltage tester. Was PED reviewed? No Patient has an Onbody or Implanted device: No Signed by: Divina Braswell RN During your visit today, we recorded the following information about you: Allergies As of Date: 04/28/2024 Noted Allergy Reaction CIPROFLOXACIN 11/12/2023 4 - Hives Date Reviewed: 04/28/2024 Reviewed by: Divina Braswell LPN - Fully Assessed Prescriptions as of 04/28/2024 - Tadalafil (CIALIS) 5 mg tablet Take 1 tablet by mouth once daily. - acetaminophen (TYLENOL EXTRA STRENGTH) 500 mg tablet Take 2 tablets by mouth every 8 hours as needed for pain for up to 40 doses. - pravastatin (PRAVACHOL) 40 mg tablet Take 40 mg by mouth daily at bedtime. - warfarin (COUMADIN) 6 mg tablet Take 1 tablet by mouth every afternoon. - dilTIAZem CD (CARDIZEM CD, CARTIA XT) 120 mg 24 hr capsule TAKE 1 CAPSULE BY MOUTH ONCE DAILY DIRECTED - carvedilol (COREG) 25 mg tablet TAKE 1 TABLET BY MOUTH IN THE MORNING AND AT BEDTIME - lisinopril (ZESTRIL) 10 mg tablet Take 10 mg by mouth once daily. - fluticasone (FLONASE) 50 mcg/actuation nasal spray 1 [place]. Encounter Status:Closed by DIVINA BRASWELL on 04/28/24 [facility] 04-07-2024 History of Present illness Narrative VIRTUAL VISIT PROGRESS NOTE This is a virtual visit using [employer] Zoom Video Visit. It required patient-provider interaction for the medical decision making as documented below. I have communicated my name and active licensure. The patient's identity and physical location were verified at the time of this visit. Either the patient or their legal cash application representative has been informed of the risks and benefits of -- and alternatives to -- treatment through a remote evaluation and consents to proceed with the evaluation remotely. Persons Present: patient Chief Complaint/Reason: follow up Clinic note from 12/30/2023 copied and updated. 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 He is s/p RALP w/ BPLND on 11/05/[address] Bah. Operative Findings: - Prostate size: 30g - No overt extraprostatic disease - Right partial nerve spare - Watertight anastomosis - Excellent Hemostasis throughout case FINAL DIAGNOSIS A. Prostate, radical prostatectomy: - Prostatic adenocarcinoma, Eldridge score 4+4=8 with tertiary pattern 5, Grade Group 4, with extraprostatic extension of neoplasm. - Margins of excision are free of neoplasm. A. Seminal vesicles, right and left, excision: - Negative for neoplasm. B. Bilateral pelvic lymph nodes, excision: - Negative for neoplasm, twenty-three lymph nodes. Radical Prostatectomy Morphology Summary Unfavorable histology: Present (Greater than 50%) Large cribriform pattern 4: Present Intraductal carcinoma: Absent Last seen via virtual visit 12/30/23. Reported improving PREETI using ~5 pads/day. Discussed on demand Tadalafil dosing for ED. Plan to f/u in 3 months with PSA. PSA 0.12 ng/mL (03/31/24), prior PSA 0.03 ng/mL (12/25/23). Interval Hx: Overall, doing well. No interval changes in health since last OV. Reports improving PREETI now down to 1 pad/day. Pad is not saturated. States if he didn't work- he likely wouldn't need to wear a pad. Doing Kegel exercises although not as consistently. No gross hematuria. Admits to ED- taking daily Tadalafil, has not tried on demand dose. Data Reviewed: Most recent labs Labs: PSA (ng/mL) Date Value 03/31/2024 0.12 12/25/2023 0.03 HISTORY REVIEWED (electronic chart updated): No past medical history on file. PAST SURGICAL HISTORY No date: SINUS SURGERY HX 2020: TOTAL HIP REPLACEMENT No family history on file. Social History Tobacco Use Smoking status: Never Smokeless tobacco: Never Substance Use Topics Alcohol use: Never Drug use: Never Current Outpatient Medications Medication Sig Tadalafil (CIALIS) 5 mg tablet Take 1 tablet by mouth once daily. cephALEXin (KEFLEX) 500 mg capsule Take 1 capsule by mouth two times a day. acetaminophen (TYLENOL EXTRA STRENGTH) 500 mg tablet Take 2 tablets by mouth every 8 hours as needed for pain for up to 40 doses. aspirin, enteric coated (ASPIRIN, ENTERIC COATED) 81 mg EC tablet in the morning. pravastatin (PRAVACHOL) 40 mg tablet Take 40 mg by mouth daily at bedtime. warfarin (COUMADIN) 6 mg tablet Take 1 tablet by mouth every afternoon. dilTIAZem CD (CARDIZEM CD, CARTIA XT) 120 mg 24 hr capsule TAKE 1 CAPSULE BY MOUTH ONCE DAILY DIRECTED carvedilol (COREG) 25 mg tablet TAKE 1 TABLET BY MOUTH IN THE MORNING AND AT BEDTIME lisinopril (ZESTRIL) 10 mg tablet Take 10 mg by mouth once daily. fluticasone (FLONASE) 50 mcg/actuation nasal spray 1 [place]. No current facility-administered medications for this visit. ALLERGIES Allergen Reactions Ciprofloxacin Hives REVIEW OF SYSTEMS: GENERAL: activity level is normal : see HPI PHYSICAL EXAMINATION: VIDEO EXAM: (if completed, performed via video enabled technology) GENERAL: alert and appropriate, in no distress, well-hydrated, well nourished, and happy, smiling, interactive RESPIRATORY: breathing non-labored CHEST: equal chest rise with normal respiratory effort ASSESSMENT: (Z08, Z85.46) Encounter for follow-up surveillance of prostate cancer (primary encounter diagnosis) (Z85.46) History of prostate cancer (R97.21) Rising PSA following treatment for malignant neoplasm of prostate (N39.3) PREETI (stress urinary incontinence), male (N52.31) Erectile dysfunction following radical prostatectomy 63 year old male s/p RALP w/ BPLND on 11/05/[address] Bah with rising PSA up to 0.12 We discussed definition of BCR of prostate cancer s/p prostatectomy and rationale for Rad/Onc referral He has improving PREETI- down to 1 pad/day Admits to ED although has not tried on demand Tadalafil dose thus far PLAN: -Encourage daily Kegel exercises -Continue daily Tadalafil (5 mg) for penile rehab. Discussed on demand dosing where he can take 10-20 mg of Tadalafil 1-2 hours prior to intercourse PRN. Advised not to exceed 20 mg in 36 hours and to skip daily dose as indicated. -Consult to Rad/Onc for evaluation and management of rising PSA. Patient will repeat PSA prior to visit -Follow up virtual visit in 3 months There are no Patient Instructions on file for this visit. I spent a total of 25 minutes on the date of the service which included preparing to see the patient, [id number] patient care, completing clinical documentation, counseling and educating the patient/family/caregiver, and ordering medications, tests, or procedures Katrina Warner APRN.CNP documented in this encounter [facility] 04-07-2024 Note HNO ID: [id number] Author: KATRINA WARNER APRN.CNP Service: ? Author Type: Nurse Practitioner Type: Progress Notes Filed: 04/07/2024 17:13 Note Text: VIRTUAL VISIT PROGRESS NOTE This is a virtual visit using [employer] Video Visit. It required patient-provider interaction for the medical decision making as documented below. I have communicated my name and active licensure. The patient's identity and physical location were verified at the time of this visit. Either the patient or their legal cash application representative has been informed of the risks and benefits of -- and alternatives to -- treatment through a remote evaluation and consents to proceed with the evaluation remotely. Persons Present: patient Chief Complaint/Reason: follow up Clinic note from 12/30/2023 copied and updated. 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 He is s/p RALP w/ BPLND on 11/05/[address] Bah. Operative Findings: - Prostate size: 30g - No overt extraprostatic disease - Right partial nerve spare - Watertight anastomosis - Excellent Hemostasis throughout case FINAL DIAGNOSIS A. Prostate, radical prostatectomy: - Prostatic adenocarcinoma, Eldridge score 4+4=8 with tertiary pattern 5, Grade Group 4, with extraprostatic extension of neoplasm. - Margins of excision are free of neoplasm. A. Seminal vesicles, right and left, excision: - Negative for neoplasm. B. Bilateral pelvic lymph nodes, excision: - Negative for neoplasm, twenty-three lymph nodes. Radical Prostatectomy Morphology Summary Unfavorable histology: Present (Greater than 50%) Large cribriform pattern 4: Present Intraductal carcinoma: Absent Last seen via virtual visit 12/30/23. Reported improving PREETI using ~5 pads/day. Discussed on demand Tadalafil dosing for ED. Plan to f/u in 3 months with PSA. PSA 0.12 ng/mL (03/31/24), prior PSA 0.03 ng/mL (12/25/23). Interval Hx: Overall, doing well. No interval changes in health since last OV. Reports improving PREETI now down to 1 pad/day. Pad is not saturated. States if he didn't work- he likely wouldn't need to wear a pad. Doing Kegel exercises although not as consistently. No gross hematuria. Admits to ED- taking daily Tadalafil, has not tried on demand dose. Data Reviewed: Most recent labs Labs: PSA (ng/mL) Date Value 03/31/2024 0.12 12/25/2023 0.03 HISTORY REVIEWED (electronic chart updated): No past medical history on file. PAST SURGICAL HISTORY No date: SINUS SURGERY HX 2020: TOTAL HIP REPLACEMENT No family history on file. Social History Tobacco Use Smoking status: Never Smokeless tobacco: Never Substance Use Topics Alcohol use: Never Drug use: Never Current Outpatient Medications Medication Sig Tadalafil (CIALIS) 5 mg tablet Take 1 tablet by mouth once daily. cephALEXin (KEFLEX) 500 mg capsule Take 1 capsule by mouth two times a day. acetaminophen (TYLENOL EXTRA STRENGTH) 500 mg tablet Take 2 tablets by mouth every 8 hours as needed for pain for up to 40 doses. aspirin, enteric coated (ASPIRIN, ENTERIC COATED) 81 mg EC tablet in the morning. pravastatin (PRAVACHOL) 40 mg tablet Take 40 mg by mouth daily at bedtime. warfarin (COUMADIN) 6 mg tablet Take 1 tablet by mouth every afternoon. dilTIAZem CD (CARDIZEM CD, CARTIA XT) 120 mg 24 hr capsule TAKE 1 CAPSULE BY MOUTH ONCE DAILY DIRECTED carvedilol (COREG) 25 mg tablet TAKE 1 TABLET BY MOUTH IN THE MORNING AND AT BEDTIME lisinopril (ZESTRIL) 10 mg tablet Take 10 mg by mouth once daily. fluticasone (FLONASE) 50 mcg/actuation nasal spray 1 [place]. No current facility-administered medications for this visit. ALLERGIES Allergen Reactions Ciprofloxacin Hives REVIEW OF SYSTEMS: GENERAL: activity level is normal : see HPI PHYSICAL EXAMINATION: VIDEO EXAM: (if completed, performed via video enabled technology) GENERAL: alert and appropriate, in no distress, well-hydrated, well nourished, and happy, smiling, interactive RESPIRATORY: breathing non-labored CHEST: equal chest rise with normal respiratory effort ASSESSMENT: (Z08, Z85.46) Encounter for follow-up surveillance of prostate cancer (primary encounter diagnosis) (Z85.46) History of prostate cancer (R97.21) Rising PSA following treatment for malignant neoplasm of prostate (N39.3) PREETI (stress urinary incontinence), male (N52.31) Erectile dysfunction following radical prostatectomy 63 year old male s/p RALP w/ BPLND on 11/05/[address] Bah with rising PSA up to 0.12 We discussed definition of BCR of prostate cancer s/p prostatectomy and rationale for Rad/Onc referral He has improving PREETI- down to 1 pad/day Admits to ED although has not tried on demand Tadalafil dose thus far PLAN: -Encourage daily Kegel exercises -Continue daily Tadalafil (5 mg) for penile rehab. Discussed on demand dosing where (more content not included)... [facility] 12-30-2023 History of Present illness Narrative VIRTUAL VISIT PROGRESS NOTE This is a virtual visit using [employer] Video Visit. It required patient-provider interaction for the medical decision making as documented below. I have communicated my name and active licensure. The patient's identity and physical location were verified at the time of this visit. Either the patient or their legal cash application representative has been informed of the risks and benefits of -- and alternatives to -- treatment through a remote evaluation and consents to proceed with the evaluation remotely. Persons Present: patient Chief Complaint/Reason: follow up Clinic note from 11/18/2023 copied and updated. 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 He is s/p RALP w/ BPLND on 11/05/[address] Bah. Operative Findings: - Prostate size: 30g - No overt extraprostatic disease - Right partial nerve spare - Watertight anastomosis - Excellent Hemostasis throughout case FINAL DIAGNOSIS A. Prostate, radical prostatectomy: - Prostatic adenocarcinoma, Christine score 4+4=8 with tertiary pattern 5, Grade Group 4, with extraprostatic extension of neoplasm. - Margins of excision are free of neoplasm. A. Seminal vesicles, right and left, excision: - Negative for neoplasm. B. Bilateral pelvic lymph nodes, excision: - Negative for neoplasm, twenty-three lymph nodes. Radical Prostatectomy Morphology Summary Unfavorable histology: Present (Greater than 50%) Large cribriform pattern 4: Present Intraductal carcinoma: Absent Last seen via virtual visit 11/18/23. Reported using ~8 pads/day for urinary leakage. Prescribed daily Tadalafil for penile rehab. Plan to f/u in 6 weeks with PSA. PSA 0.03 ng/mL (12/25/23) Interval Hx: Overall, doing well. Energy levels at baseline. Reports some improvement in PREETI. Using ~5 pads/day. Doing daily Kegel exercises. No gross hematuria. Would consider pursuing PFPT. Taking daily Tadalafil without adverse effects. Admits to ED- no erectile response thus far. Data Reviewed: Most recent labs Labs: PSA (ng/mL) Date Value 12/25/2023 0.03 HISTORY REVIEWED (electronic chart updated): No past medical history on file. PAST SURGICAL HISTORY Procedure Laterality Date SINUS SURGERY HX TOTAL HIP REPLACEMENT 2020 No family history on file. Social History Tobacco Use Smoking status: Never Smokeless tobacco: Never Substance Use Topics Alcohol use: Never Drug use: Never Current Outpatient Medications Medication Sig Tadalafil (CIALIS) 5 mg tablet Take 1 tablet by mouth once daily. cephALEXin (KEFLEX) 500 mg capsule Take 1 capsule by mouth two times a day. acetaminophen (TYLENOL EXTRA STRENGTH) 500 mg tablet Take 2 tablets by mouth every 8 hours as needed for pain for up to 40 doses. aspirin, enteric coated (ASPIRIN, ENTERIC COATED) 81 mg EC tablet in the morning. pravastatin (PRAVACHOL) 40 mg tablet Take 40 mg by mouth daily at bedtime. warfarin (COUMADIN) 6 mg tablet Take 1 tablet by mouth every afternoon. dilTIAZem CD (CARDIZEM CD, CARTIA XT) 120 mg 24 hr capsule TAKE 1 CAPSULE BY MOUTH ONCE DAILY DIRECTED carvedilol (COREG) 25 mg tablet TAKE 1 TABLET BY MOUTH IN THE MORNING AND AT BEDTIME lisinopril (ZESTRIL) 10 mg tablet Take 10 mg by mouth once daily. fluticasone (FLONASE) 50 mcg/actuation nasal spray 1 [place]. No current facility-administered medications for this visit. ALLERGIES Allergen Reactions Ciprofloxacin Hives REVIEW OF SYSTEMS: GENERAL: activity level is normal : see HPI PHYSICAL EXAMINATION: VIDEO EXAM: (if completed, performed via video enabled technology) GENERAL: alert and appropriate, in no distress, well-hydrated, well nourished, and happy, smiling, interactive RESPIRATORY: breathing non-labored CHEST: equal chest rise with normal respiratory effort ASSESSMENT: (Z08, Z85.46) Encounter for follow-up surveillance of prostate cancer (primary encounter diagnosis) (Z85.46) History of prostate cancer (N39.3) PREETI (stress urinary incontinence), male (N52.31) Erectile dysfunction following radical prostatectomy 63 year old male s/p RALP w/ BPLND on 11/05/[address] Bah. Discussed most recent PSA results and rationale for continued monitoring Improving PREETI Admits to ED- discussed on demand Tadalafil dosing PLAN: -Encourage daily Kegel exercises -Consult pelvic floor physical therapy (order sent to patient in the mail- he will pursue locally) -Continue daily Tadalafil (5 mg) for penile rehab. Discussed on demand dosing where he can take 10-20 mg of Tadalafil 1-2 hours prior to intercourse PRN. Advised not to exceed 20 mg in 36 hours and to skip daily dose as indicated. -Follow up virtual visit in 3 months with PSA checked prior to visit There are no Patient Instructions on file for this visit. I spent a total of 20 minutes on the date of the service which included preparing to see the patient, [id number] patient care, completing clinical documentation, counseling and educating the patient/family/caregiver, and ordering medications, tests, or procedures Katrina Warner APRN.CNP documented in this encounter [facility] 12-30-2023 Note HNO ID: [id number] Author: KATRINA WARNER APRN.CNP Service: ? Author Type: Nurse Practitioner Type: Progress Notes Filed: 12/30/2023 17:24 Note Text: VIRTUAL VISIT PROGRESS NOTE This is a virtual visit using [employer] Video Visit. It required patient-provider interaction for the medical decision making as documented below. I have communicated my name and active licensure. The patient's identity and physical location were verified at the time of this visit. Either the patient or their legal cash application representative has been informed of the risks and benefits of -- and alternatives to -- treatment through a remote evaluation and consents to proceed with the evaluation remotely. Persons Present: patient Chief Complaint/Reason: follow up Clinic note from 11/18/2023 copied and updated. 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 He is s/p RALP w/ BPLND on 11/05/[address] Bah. Operative Findings: - Prostate size: 30g - No overt extraprostatic disease - Right partial nerve spare - Watertight anastomosis - Excellent Hemostasis throughout case FINAL DIAGNOSIS A. Prostate, radical prostatectomy: - Prostatic adenocarcinoma, Eldridge score 4+4=8 with tertiary pattern 5, Grade Group 4, with extraprostatic extension of neoplasm. - Margins of excision are free of neoplasm. A. Seminal vesicles, right and left, excision: - Negative for neoplasm. B. Bilateral pelvic lymph nodes, excision: - Negative for neoplasm, twenty-three lymph nodes. Radical Prostatectomy Morphology Summary Unfavorable histology: Present (Greater than 50%) Large cribriform pattern 4: Present Intraductal carcinoma: Absent Last seen via virtual visit 11/18/23. Reported using ~8 pads/day for urinary leakage. Prescribed daily Tadalafil for penile rehab. Plan to f/u in 6 weeks with PSA. PSA 0.03 ng/mL (12/25/23) Interval Hx: Overall, doing well. Energy levels at baseline. Reports some improvement in PREETI. Using ~5 pads/day. Doing daily Kegel exercises. No gross hematuria. Would consider pursuing PFPT. Taking daily Tadalafil without adverse effects. Admits to ED- no erectile response thus far. Data Reviewed: Most recent labs Labs: PSA (ng/mL) Date Value 12/25/2023 0.03 HISTORY REVIEWED (electronic chart updated): No past medical history on file. PAST SURGICAL HISTORY Procedure Laterality Date SINUS SURGERY HX TOTAL HIP REPLACEMENT 2020 No family history on file. Social History Tobacco Use Smoking status: Never Smokeless tobacco: Never Substance Use Topics Alcohol use: Never Drug use: Never Current Outpatient Medications Medication Sig Tadalafil (CIALIS) 5 mg tablet Take 1 tablet by mouth once daily. cephALEXin (KEFLEX) 500 mg capsule Take 1 capsule by mouth two times a day. acetaminophen (TYLENOL EXTRA STRENGTH) 500 mg tablet Take 2 tablets by mouth every 8 hours as needed for pain for up to 40 doses. aspirin, enteric coated (ASPIRIN, ENTERIC COATED) 81 mg EC tablet in the morning. pravastatin (PRAVACHOL) 40 mg tablet Take 40 mg by mouth daily at bedtime. warfarin (COUMADIN) 6 mg tablet Take 1 tablet by mouth every afternoon. dilTIAZem CD (CARDIZEM CD, CARTIA XT) 120 mg 24 hr capsule TAKE 1 CAPSULE BY MOUTH ONCE DAILY DIRECTED carvedilol (COREG) 25 mg tablet TAKE 1 TABLET BY MOUTH IN THE MORNING AND AT BEDTIME lisinopril (ZESTRIL) 10 mg tablet Take 10 mg by mouth once daily. fluticasone (FLONASE) 50 mcg/actuation nasal spray 1 [place]. No current facility-administered medications for this visit. ALLERGIES Allergen Reactions Ciprofloxacin Hives REVIEW OF SYSTEMS: GENERAL: activity level is normal : see HPI PHYSICAL EXAMINATION: VIDEO EXAM: (if completed, performed via video enabled technology) GENERAL: alert and appropriate, in no distress, well-hydrated, well nourished, and happy, smiling, interactive RESPIRATORY: breathing non-labored CHEST: equal chest rise with normal respiratory effort ASSESSMENT: (Z08, Z85.46) Encounter for follow-up surveillance of prostate cancer (primary encounter diagnosis) (Z85.46) History of prostate cancer (N39.3) PREETI (stress urinary incontinence), male (N52.31) Erectile dysfunction following radical prostatectomy 63 year old male s/p RALP w/ BPLND on 11/05/[address] Bah. Discussed most recent PSA results and rationale for continued monitoring Improving PREETI Admits to ED- discussed on demand Tadalafil dosing PLAN: -Encourage daily Kegel exercises -Consult pelvic floor physical therapy (order sent to patient in the mail- he will pursue locally) -Continue daily Tadalafil (5 mg) for penile rehab. Discussed on demand dosing where he can take 10-20 mg of Tadalafil 1-2 hours prior to intercourse PRN. Advised not to exceed 20 mg in 36 hours and to skip daily dose as indicated. -Follow up virtua (more content not included)... [facility] 12-29-2023 Note [facility] Cardiology Clinic Note Chief Complaint: Patient here for 1 year follow up CAD, chronic systolic heart failure, and hypertension. Had routine labs w/ lipid last January 2023. Had echo last month at [facility]. HPI: Sukhdeep Gamino is a 63 y.o. male With a history of persistent longstanding atrial fibrillation, prior heart failure with midrange ejection fraction, and single-vessel coronary artery disease here in routine follow-up Recently diagnosed with prostate cancer; had a stress test and echocardiogram prior to surgery. Did well postoperatively. No new cardiovascular complaints Complains of easy bruising and ecchymosis. Cardiology ROS: Review of Systems Hematologic/Lymphatic: Bruises/bleeds easily. Musculoskeletal: Positive for arthritis, back pain and myalgias. All other systems reviewed and are negative. Past Medical History He has a past medical history of Abnormal ECG, Arrhythmia, Asthma, Atrial fibrillation (CMS/HCC), CHF (congestive heart failure) (CMS/HCC), Coronary artery disease, and Hypertension. Surgical History He has no past surgical history on file. Social History He reports that he has never smoked. He has never used smokeless tobacco. He reports that he does not currently use alcohol. No history on file for drug use. Family History No family history on file. Allergies Patient has no known allergies. Medications Current Outpatient Medications: aspirin 81 mg EC tablet, in the morning., Disp: , Rfl: carvedilol (Coreg) 25 mg tablet, Take 1 tablet (25 mg) by mouth in the morning and at bedtime., Disp: 180 tablet, Rfl: 3 dilTIAZem CD (Cardizem CD) 120 mg 24 hr capsule, Take 1 capsule (120 mg) by mouth once daily as directed., Disp: 90 capsule, Rfl: 3 lisinopril 10 mg tablet, Take 1 tablet (10 mg) by mouth once daily as directed., Disp: 90 tablet, Rfl: 3 pravastatin (Pravachol) 40 mg tablet, Take 1 tablet (40 mg) by mouth at bedtime., Disp: 90 tablet, Rfl: 3 warfarin (Coumadin) 6 mg tablet, warfarin 6 mg tablet TAKE 1 TABLET BY MOUTH ONCE DAILY, THEN ON ODD DAYS ADD 1MG TABLET WITH THE 6MG TABLET, Disp: , Rfl: Last Recorded Vitals BP 126/88 (BP Location: Right arm, Patient Position: Sitting) Pulse 71 Ht 1.778 m (5' 10 ) Wt 86.2 kg (190 lb) SpO2 99% BMI 27.26 kg/m??? Physical Examination: GENERAL: alert and oriented x3, well developed, in no acute distress. HEAD: atraumatic, normocephalic. EYES: JULIANNA, EOMI. NECK: trachea midline, no JVD present, no carotid bruits present. CARDIAC: S1, S2 present. RRR. No murmur, rubs, or gallops. RESPIRATORY: CTAB, no increased effort of breathing, no rales, rhonchi, or wheezing. ABDOMEN: soft, nontender, nondistended. EXTREMITIES: no lower extremity edema, peripheral pulses are 2+ bilaterally. No rash/skin discoloration present. NEURO: strength/sensation equal and symmetric in bilateral upper and lower extremities. PSYCH: appropriate mood, affect, and judgement. Investigations: Echocardiogram 11/18/2023: Global left ventricular systolic function is normal. Ejection fraction is 53???5% by 2D biplane method. The right ventricle is normal in size and systolic function. Biatrial enlargement. No significant valvular abnormalities. Trivial pericardial effusion versus a fat pad. Assessment: Coronary artery disease; moderate disease of the left anterior descending coronary artery Permanent atrial fibrillation Dyslipidemia Essential hypertension Heart failure with midrange ejection fraction; recovered Prostate cancer s/p surgery Plan: Continue optimal medical therapy for coronary artery disease including aspirin, statin, and a beta-josé miguel as well as an angiotensin-converting enzyme inhibitor The patient is on Coumadin for thromboembolic prophylaxis given his atrial fibrillation and [id number] score; given significant bruising and ecchymosis, he can safely stop aspirin and continue on Coumadin alone given stable coronary artery disease Treat noncardiac comorbidities as clinically appropriate Return to clinic in 1 year or sooner should problems arise Adriana Huff MD, MPH, FACC, [facility], [facility] Interventional Cardiology Pager Email: [email or web address] 11-18-2023 History of Present illness Narrative VIRTUAL VISIT PROGRESS NOTE This is a virtual visit using [employer] Video Visit. It required patient-provider interaction for the medical decision making as documented below. I have communicated my name and active licensure. The patient's identity and physical location were verified at the time of this visit. Either the patient or their legal cash application representative has been informed of the risks and benefits of -- and alternatives to -- treatment through a remote evaluation and consents to proceed with the evaluation remotely. 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 He is s/p RALP w/ BPLND on 11/05/[address] Bah. Operative Findings: - Prostate size: 30g - No overt extraprostatic disease - Right partial nerve spare - Watertight anastomosis - Excellent Hemostasis throughout case FINAL DIAGNOSIS A. Prostate, radical prostatectomy: - Prostatic adenocarcinoma, Eldridge score 4+4=8 with tertiary pattern 5, Grade Group 4, with extraprostatic extension of neoplasm. - Margins of excision are free of neoplasm. A. Seminal vesicles, right and left, excision: - Negative for neoplasm. B. Bilateral pelvic lymph nodes, excision: - Negative for neoplasm, twenty-three lymph nodes. Radical Prostatectomy Morphology Summary Unfavorable histology: Present (Greater than 50%) Large cribriform pattern 4: Present Intraductal carcinoma: Absent Hospital course uncomplicated and he was discharged home on 11/06/23. Interval Hx: Overall, doing well since hospital discharge. No fevers/chills. Tolerating adequate PO intake. Denies constipation. He took his padgett catheter out as instructed without issue. Admits to anticipated urinary leakage. Using ~8 pads/day. Reports good urine stream. Only scant gross hematuria since catheter removal. Reports only minimal abdominal discomfort with activity- no longer requiring Rx. Incisions healing without evidence of infection. No calf pain or swelling. Data Reviewed: Most recent labs Most recent surgical pathology Labs: Creatinine Date Value Ref Range Status 11/06/2023 1.23 (H) 0.73 - 1.22 mg/dL Final 11/05/2023 1.29 (H) 0.73 - 1.22 mg/dL Final 11/03/2023 1.29 (H) 0.73 - 1.22 mg/dL Final PSA 07/29/23 7.8 04/30/23 6.9 HISTORY REVIEWED (electronic chart updated): No past medical history on file. PAST SURGICAL HISTORY Procedure Laterality Date SINUS SURGERY HX TOTAL HIP REPLACEMENT 2020 No family history on file. Social History Tobacco Use Smoking status: Never Smokeless tobacco: Never Substance Use Topics Alcohol use: Never Drug use: Never Current Outpatient Medications Medication Sig cephALEXin (KEFLEX) 500 mg capsule Take 1 capsule by mouth two times a day. docusate sodium (COLACE) 100 mg capsule Take 1 capsule by mouth two times a day. acetaminophen (TYLENOL EXTRA STRENGTH) 500 mg tablet Take 2 tablets by mouth every 8 hours as needed for pain for up to 40 doses. oxybutynin XL (DITROPAN XL) 5 mg 24 hr tablet Take 1 tablet by mouth once daily as needed (bladder spasms) for up to 6 days. Please stop taking at least ONE DAY prior to padgett removal aspirin, enteric coated (ASPIRIN, ENTERIC COATED) 81 mg EC tablet in the morning. pravastatin (PRAVACHOL) 40 mg tablet Take 40 mg by mouth daily at bedtime. warfarin (COUMADIN) 6 mg tablet Take 1 tablet by mouth every afternoon. dilTIAZem CD (CARDIZEM CD, CARTIA XT) 120 mg 24 hr capsule TAKE 1 CAPSULE BY MOUTH ONCE DAILY DIRECTED carvedilol (COREG) 25 mg tablet TAKE 1 TABLET BY MOUTH IN THE MORNING AND AT BEDTIME lisinopril (ZESTRIL) 10 mg tablet Take 10 mg by mouth once daily. tamsulosin (FLOMAX) 0.4 mg Take 1 capsule by mouth every afternoon. fluticasone (FLONASE) 50 mcg/actuation nasal spray 1 [place]. bicalutamide (CASODEX) 50 mg tablet Take 1 tablet by mouth once daily. No current facility-administered medications for this visit. ALLERGIES Allergen Reactions Ciprofloxacin Hives REVIEW OF SYSTEMS: GENERAL: no fever GI: no abdominal pain : see HPI PHYSICAL EXAMINATION: VIDEO EXAM: (if completed, performed via video enabled technology) GENERAL: alert and appropriate, in no distress, well-hydrated, well nourished, and happy, smiling, interactive RESPIRATORY: breathing non-labored CHEST: equal chest rise with normal respiratory effort ASSESSMENT: (C61) Prostate cancer (HCC) (primary encounter diagnosis) (N39.3) PREETI (stress urinary incontinence), male 62 year old male s/p RALP w/ BPLND on 11/05/[address] Bah. We discussed surgical pathology results and rationale for continued PSA monitoring. Reviewed post-op physical restrictions and role of Kegel exercises. PLAN: -No lifting >10 lbs for 4 weeks after surgery -Encourage daily Kegel exercises (6 sets of 10 per day) -Offered consult for pelvic floor PT- declined at this time but will contact office if interested -Rx for daily Tadalafil (5 mg) for penile rehab sent to preferred pharmacy; confirmed he is not prescribed Nitrates; side effects and administration instructions reviewed -Follow up virtual visit in 6 weeks with PSA checked prior visit Fax cardiology test results (NM stress test, echo, and EKG) to his local [facility] at [phone] per patient request There are no Patient Instructions on file for this visit. I spent a total of 45 minutes on the date of the service which included preparing to see the patient, [id number] patient care, completing clinical documentation, counseling and educating the patient/family/caregiver, and ordering medications, tests, or procedures Katrina Warner APRN.JC documented in this encounter [facility] 11-18-2023 Note HNO ID: [id number] Author: KATRINA WARNER APRN.[facility] Service: ? Author Type: Nurse Practitioner Type: Progress Notes Filed: 11/18/2023 15:56 Note Text: VIRTUAL VISIT PROGRESS NOTE This is a virtual visit using [employer] Zoom Video Visit. It required patient-provider interaction for the medical decision making as documented below. I have communicated my name and active licensure. The patient's identity and physical location were verified at the time of this visit. Either the patient or their legal cash application representative has been informed of the risks and benefits of -- and alternatives to -- treatment through a remote evaluation and consents to proceed with the evaluation remotely. 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 He is s/p RALP w/ BPLND on 11/05/[address] Bah. Operative Findings: - Prostate size: 30g - No overt extraprostatic disease - Right partial nerve spare - Watertight anastomosis - Excellent Hemostasis throughout case FINAL DIAGNOSIS A. Prostate, radical prostatectomy: - Prostatic adenocarcinoma, Christine score 4+4=8 with tertiary pattern 5, Grade Group 4, with extraprostatic extension of neoplasm. - Margins of excision are free of neoplasm. A. Seminal vesicles, right and left, excision: - Negative for neoplasm. B. Bilateral pelvic lymph nodes, excision: - Negative for neoplasm, twenty-three lymph nodes. Radical Prostatectomy Morphology Summary Unfavorable histology: Present (Greater than 50%) Large cribriform pattern 4: Present Intraductal carcinoma: Absent Hospital course uncomplicated and he was discharged home on 11/06/23. Interval Hx: Overall, doing well since hospital discharge. No fevers/chills. Tolerating adequate PO intake. Denies constipation. He took his padgett catheter out as instructed without issue. Admits to anticipated urinary leakage. Using ~8 pads/day. Reports good urine stream. Only scant gross hematuria since catheter removal. Reports only minimal abdominal discomfort with activity- no longer requiring Rx. Incisions healing without evidence of infection. No calf pain or swelling. Data Reviewed: Most recent labs Most recent surgical pathology Labs: Creatinine Date Value Ref Range Status 11/06/2023 1.23 (H) 0.73 - 1.22 mg/dL Final 11/05/2023 1.29 (H) 0.73 - 1.22 mg/dL Final 11/03/2023 1.29 (H) 0.73 - 1.22 mg/dL Final PSA 07/29/23 7.8 04/30/23 6.9 HISTORY REVIEWED (electronic chart updated): No past medical history on file. PAST SURGICAL HISTORY Procedure Laterality Date SINUS SURGERY HX TOTAL HIP REPLACEMENT 2020 No family history on file. Social History Tobacco Use Smoking status: Never Smokeless tobacco: Never Substance Use Topics Alcohol use: Never Drug use: Never Current Outpatient Medications Medication Sig cephALEXin (KEFLEX) 500 mg capsule Take 1 capsule by mouth two times a day. docusate sodium (COLACE) 100 mg capsule Take 1 capsule by mouth two times a day. acetaminophen (TYLENOL EXTRA STRENGTH) 500 mg tablet Take 2 tablets by mouth every 8 hours as needed for pain for up to 40 doses. oxybutynin XL (DITROPAN XL) 5 mg 24 hr tablet Take 1 tablet by mouth once daily as needed (bladder spasms) for up to 6 days. Please stop taking at least ONE DAY prior to padgett removal aspirin, enteric coated (ASPIRIN, ENTERIC COATED) 81 mg EC tablet in the morning. pravastatin (PRAVACHOL) 40 mg tablet Take 40 mg by mouth daily at bedtime. warfarin (COUMADIN) 6 mg tablet Take 1 tablet by mouth every afternoon. dilTIAZem CD (CARDIZEM CD, CARTIA XT) 120 mg 24 hr capsule TAKE 1 CAPSULE BY MOUTH ONCE DAILY DIRECTED carvedilol (COREG) 25 mg tablet TAKE 1 TABLET BY MOUTH IN THE MORNING AND AT BEDTIME lisinopril (ZESTRIL) 10 mg tablet Take 10 mg by mouth once daily. tamsulosin (FLOMAX) 0.4 mg Take 1 capsule by mouth every afternoon. fluticasone (FLONASE) 50 mcg/actuation nasal spray 1 [place]. bicalutamide (CASODEX) 50 mg tablet Take 1 tablet by mouth once daily. No current facility-administered medications for this visit. ALLERGIES Allergen Reactions Ciprofloxacin Hives REVIEW OF SYSTEMS: GENERAL: no fever GI: no abdominal pain : see HPI PHYSICAL EXAMINATION: VIDEO EXAM: (if completed, performed via video enabled technology) GENERAL: alert and appropriate, in no distress, well-hydrated, well nourished, and happy, smiling, interactive RESPIRATORY: breathing non-labored CHEST: equal chest rise with normal respiratory effort ASSESSMENT: (C61) Prostate cancer (HCC) (primary encounter diagnosis) (N39.3) PREETI (stress urinary incontinence), male 62 year old male s/p RALP w/ BPLND on 11/05/[address] Bah. We discussed surgical pathology results and rationale for continued PSA monitoring. Reviewed post-op phy (more content not included)... [facility] 11-16-2023 Miscellaneous Notes Returned call to Mr. Gamino regarding incontinence. Given directions on how to properly do kegel exercises and how many. Handout emailed to him. He will call the office with any further questions or concerns. Casi Rocha RN, BSN Triage Nurse Department of Urology [facility] documented in this encounter [facility] 11-12-2023 Miscellaneous Notes Spoke to Mr. Gamino. Advised to stop cipro. Keflex has been called in for him. He can take antihistamine as advised. Patient verbalized understanding. All questions answered. Casi Rocha RN, BSN Triage Nurse Department of Urology [facility] documented in this encounter [facility] 11-12-2023 Miscellaneous Notes Spoke to Mr. Gamino. He has taken 3 doses of cipro. He has developed hives on his back, below his shoulder blades to about his waist. It does itch. He has no breathing issues or SOB. He has some generic zyrtec at home that he will take for itching. Message sent to Dr. Bah's team regarding continuing cipro. Casi Rocha RN, BSN Triage Nurse Department of Urology [facility] documented in this encounter [facility] 11-10-2023 Miscellaneous Notes Notified patient that per Dr. Bah, it is okay for him to take his short course of cipro for his padgett catheter. Pt verbalized understanding. All questions answered. Casi Rocha RN, BSN Triage Nurse Department of Urology [facility] documented in this encounter [facility] 11-06-2023 Note HNO ID: [id number] Author: NAYELY FLOR MD Service: Urology Author Type: Resident Type: Progress Notes Filed: 11/06/2023 07:43 Note Text: [facility] UROLOGY PROGRESS NOTE Name: Sukhdeep Gamino Bed: Main - Periop OR/Main - * Date: 11/06/2023 After Hours [facility] Urology Service Pager: [phone] ASSESSMENT AND PLAN Sukhdeep Gamino is a 62 year old male with PMHx of prostate cancer now POD#1 s/p RALP #Neuro - Pain control with PO/IV analgesia #CV/Resp - -HDS -Encourage IS #GI - -Diet: GIS -Colace, Zofran # - -Scr: stable -UOP: Continue to monitor -Padgett: in place #Activity - OOB to chair and Ambulate with assistance. Stressed importance of getting out of bed #DVT prophylaxis - SCDs, SQH #ID/Antibiotics - Perioperative antibiotics - Ancef #Secondary Dx/Complications- See active problems below #Discharge teaching - routine #Disposition - pending course Dc today MD Nayely Greer MD, MPH PGY-2 Urology Active Problems Cardiomyopathy in diseases classified elsewhere (HCC) -ECHO 2019: LVEF 40% Chronic ischemic heart disease [facility] x3, most recent ~2018. -NM Cardiac Perfusion Test 11/03/2023: negative for ischemia Chronic systolic (congestive) heart failure (HCC) -ECHO 2019: LVEF 40% Essential hypertension Carvedilol, Diltiazem and Lisinopril. Mixed hyperlipidemia Pravastatin Paroxysmal atrial fibrillation (HCC) Carvedilol, Diltiazem. On OAC Coumadin. SUBJECTIVE Pt with expected post op pain, mild this AM Increased tachy o/n in s/o missed beta josé miguel No N V CP SOB Hb 11.6 (11.6) Tissue Technologist 1.23 (1.29) Objective Vital Signs BP 110/74 Pulse 103 Temp 36.7 ?C (98.1 ?F) (Oral) Resp 16 SpO2 97% There is no height or weight on file to calculate BMI. Input and Output Intake/Output Summary (Last 24 hours) at 11/06/2023 0741 Last data filed at 11/06/2023 0702 Gross per 24 hour Intake 3449 ml Output 2745 ml Net 704 ml Urine output 2595cc pink urine Physical Exam General: Well-appearing, no acute distress CV: Warm and well perfused Lungs: No increased work of breathing on RA Abdomen: soft, appropriately tender to zehra-incisional palpation, non-distended Wound: Incisions CDI with skin glue. : Padgett with thin and pink urine Extremities: Normal. No cyanosis, clubbing, or edema Recent Labs 11/06/23 0113 11/05/23 1817 11/03/23 1346 WBC 8.07 8.89 9.85 HB 11.7* 11.6* 14.3 HCT 34.5* 34.0* 43.8 PLT 238 240 338 NA 136 139 141 K 4.4 4.6 4.8 CHLOR 103 106* 104 CO2 21* 21* 25 BUN 19 25* 25* CREAT 1.23* 1.29* 1.29* GLUC 190* 134* 105* Imaging Reviewed [facility] 11-06-2023 Note HNO ID: [id number] Author: FLORI OCHOA MD Service: Urology Author Type: Resident Type: Plan of Care Filed: 11/06/2023 03:58 Note Text: Patient Name: Sukhdeep Gamino Urology Plan of Care Pt is 1 Day Post-Op from RALP. Ongoing discussion overnight with bedside RN re: asymptomatic tachycardia. HR typically 100-110s with jump into the 120s and 130s. EKG demonstrated AF w/ RVR (HR >120). I ordered 1x metop 5mg IV with response-- HR 80-100s. Patient missed dose of coreg yesterday evening and had delay in receiving cardizem-- suspect poor rate control currently related to missing home meds. He received cardizem last night and will receive dose of coreg early now. He currently feels well and is without symptoms. Plan: - Follow-up mag and phos and replete PRN - Closely monitor HR once back on home regimen, continue telemetry Flori Ochoa MD Urology PGY3 [facility] [place] Personal pager: [phone] On weekends and after 5PM, please page [phone] [facility] 11-05-2023 Note HNO ID: [id number] Author: FLORI OCHOA MD Service: Urology Author Type: Resident Type: Progress Notes Filed: 11/05/2023 21:03 Note Text: [facility] UROLOGY PROGRESS NOTE Name: Sukhdeep Gamino Bed: Main - Periop OR/Main - * Date: 11/05/2023 After Hours [facility] Urology Service Pager: [phone] ASSESSMENT AND PLAN Sukhdeep Gamino is a 62 year old male with PMHx of prostate cancer now POD#0 s/p RALP #Neuro - Pain control with PO/IV analgesia #CV/Resp - -HDS -Encourage IS #GI - -Diet: CLD -Colace, Zofran # - -Scr: stable -UOP: Continue to monitor -Padgett: in place #Activity - OOB to chair and Ambulate with assistance. Stressed importance of getting out of bed #DVT prophylaxis - SCDs, SQH #ID/Antibiotics - Perioperative antibiotics - Ancef #Secondary Dx/Complications- See active problems below #Discharge teaching - routine #Disposition - pending course MD Nayely Greer MD, MPH PGY-2 Urology Active Problems Cardiomyopathy in diseases classified elsewhere (HCC) -ECHO 2019: LVEF 40% Chronic ischemic heart disease [facility] x3, most recent ~2018. -NM Cardiac Perfusion Test 11/03/2023: negative for ischemia Chronic systolic (congestive) heart failure (HCC) -ECHO 2019: LVEF 40% Essential hypertension Carvedilol, Diltiazem and Lisinopril. Mixed hyperlipidemia Pravastatin Paroxysmal atrial fibrillation (HCC) Carvedilol, Diltiazem. On OAC Coumadin. SUBJECTIVE Pt with expected post op pain No N V CP SOB Hb 11.6 (14.3) Tissue Technologist 1.29 (1.29) Objective Vital Signs BP 139/89 Temp 36.3 ?C (97.3 ?F) (Temporal Artery) Resp 16 SpO2 100% There is no height or weight on file to calculate BMI. Input and Output Intake/Output Summary (Last 24 hours) at 11/05/2023 1509 Last data filed at 11/05/2023 1254 Gross per 24 hour Intake -- Output 0 ml Net 0 ml Urine output 195cc light red and thin Physical Exam General: Well-appearing, no acute distress CV: Warm and well perfused Lungs: No increased work of breathing on RA Abdomen: soft, appropriately tender to zehra-incisional palpation, non-distended Wound: Incisions CDI with skin glue. : Padgett with thin and light red urine Extremities: Normal. No cyanosis, clubbing, or edema Recent Labs 11/03/23 1346 WBC 9.85 HB 14.3 HCT 43.8 PLT 338 NA 141 K 4.8 CHLOR 104 CO2 25 BUN 25* CREAT 1.29* GLUC 105* Imaging Reviewed [facility] 11-05-2023 Note HNO ID: [id number] Author: SAL ALONSO SRNA Service: ? Author Type: Student Type: Anesthesia Procedure Notes Filed: 11/05/2023 13:34 Note Text: ANESTHESIOLOGY PROCEDURE NOTE A-Line General Information Procedure Start Time/Medication Administration: 11/05/2023 1:11 PM Patient location during procedure: OR Consent Obtained: Yes Indications: continuous blood pressure monitoring Staffing Anesthesiologist: Kathy Lindo MD SRNA: Sal Alonso SRNA Performed by: RADHA Preparation Sterility Preparation: hand hygiene performed prior to procedure, sterile gloves, drapes, and procedure tray, surgical cap used, mask used, sterile drape used during line insertion, skin prep agent completely dried prior to procedure Site Prep: Chlorhexidine Procedure Details Catheter Type: arterial line Catheter Size: 20 G Catheter Length: 5.25 in Guidewire Used: Yes Guidewire Removed Intact: Yes Laterality: right Site: radial artery Ultrasound Guided: No Line Secured: Tegaderm and tape Events Events: patient tolerated procedure well with no complications SIGNATURE: RADHA Disla PATIENT NAME: Sukhdeep Gamino DATE: November 05, 2023 TIME: 1:34 PM CSN: [id number] [facility] 11-05-2023 Note HNO ID: [id number] Author: SAL ALONSO SRNA Service: ? Author Type: Student Type: Anesthesia Procedure Notes Filed: 11/05/2023 13:30 Note Text: ANESTHESIOLOGY PROCEDURE NOTE PIV General Information Procedure Start Time/Medication Administration: 11/05/2023 1:03 PM Patient Location: OR Staffing SRNA: Sal Alonso SRNA Performed by: RADHA Preparation Sterility Preparation: hand hygiene performed prior to procedure, surgical cap used, mask used, skin prep agent completely dried prior to procedure Site Prep: alcohol Procedure Details Indication: need for IV access Needle Size/Type: 18 gauge angiocath Orientation: Right Location: Hand Imaging Guidance Used: No SIGNATURE: RADHA Disla PATIENT NAME: Sukhdeep Gamino DATE: November 05, 2023 TIME: 1:29 PM CSN: [id number] [facility] 11-05-2023 Note HNO ID: [id number] Author: SAL ALONSO SRNA Service: ? 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 Staffing Anesthesiologist: Kathy Lindo MD SRNA: Sal Alonso SRNA Performed by: RADHA Indications and Patient Condition Indications for airway management: anesthesia Preoxygenated: yes anesthesia circuit Patient position: sniffing Method: asleep Cricoid Pressure: No Manual In-Line Stabilization: No Difficult Mask: No Final Airway Details Final airway type: endotracheal airway Final Endotracheal Airway: ETT Cuffed: yes Successful intubation technique: direct laryngoscopy Devices used: intubating stylet and Pineda Endotracheal tube insertion site: oral Blade: Justyn Blade size: #4 ETT size (mm): 7.5 Measured from: gums Measurement (cm): 24 Placement verified by: capnometry Cormack-Lehane Classification: grade I - full view of glottis Number of attempts at approach: 1 Failed airway: no Unrecognized esophageal intubation: no Airway not difficult SIGNATURE: RADHA Disla PATIENT NAME: Sukhdeep Gamino DATE: November 05, 2023 TIME: 1:29 PM CSN: [id number] [facility] 11-03-2023 Note HNO ID: [id number] Author: JOHN HUMPHREYS PA Service: ? Author Type: Physician Benefits Assistant Type: Progress Notes Filed: 11/03/2023 15:06 Note Text: [facility] PRE-OP NOTE Sukhdeep Gamino is a 62 year old male. Pre-op Date: November 03, 2023 Date of Procedure: 11/05/2023 Does the patient have an active COVID-19 test in [facility]? N/A Procedure/Surgery: RALP Diagnosis: prostate cancer Primary Surgeon: MD Bah Robert There were no vitals taken for this visit. Pain Assessment: Are you currently having pain? no Surgical Guide Book Status: Patient given book today. Dialysis Guide Book Status: N/A Allergies Reviewed: Yes Medications Reviewed: Yes Is patient currently on oral steroids?: No Has the patient had a UTI in the past month?: No. Does the patient have any artificial joints (last 2 years), metal parts, pacemakers or cardiac/ureteral stents in place?: Yes, right hip replacement, Does the patient have diabetes?: No Is the patient routinely taking anticoagulants?: Yes. Patient stopped coumadin on on 10/31. Will continue taking aspirin Can the patient have an IV put in either arm?: Yes Urine Dip Complete?: Yes URINE CULTURE COMPLETE?: ordered Ostomy/Stoma Nurse appointment made/completed: N/A IMPACT/Medical Clearance: Cleared per IMPACT - Yes [facility] Clinic: Cleared per [facility] - N/A All testing on cureform has been scheduled: Yes Consent Signed: Consent not in [facility]. Surgeon notified via staff mesage. DOS Orders Placed and Signed: Yes. Pre-op HANDP Done by [employer]: Yes. PATIENT INSTRUCTIONS FOR SURGERY 1.) DO NOT HAVE ANYTHING TO EAT AFTER MIDNIGHT THE DAY BEFORE SURGERY except for certain morning medications as instructed by the doctor. Candy, mints, gum, and smoking are NOT permitted. You may drink clear liquids (Sprite, water, cristina daja) up to two hours before your arrival time on the day of surgery. 2.) Medications to be taken on the morning of surgery with a few sips of water: per IMPACT 3.) Please bring all your prescribed inhalers (if you have any you normally take) to the hospital. 4.) Arrival time: Call for arrival. 5.) Prep given: No 6.) Lovenox instructions given: N/A 7.) Patient reminded that surgery time provided day before surgery is tentative based on potential changes with transplants. Recommendations: This patient is optimally prepared for surgery pending LABS. John Humphreys PA-C Electronically signed [facility] 11-03-2023 History of Present illness Narrative [facility] PRE-OP NOTE Sukhdeep Gamino is a 62 year old male. Pre-op Date: November 03, 2023 Date of Procedure: 11/05/2023 Does the patient have an active COVID-19 test in [facility]? N/A Procedure/Surgery: RALP Diagnosis: prostate cancer Primary Surgeon: MD Bah Robert There were no vitals taken for this visit. Pain Assessment: Are you currently having pain? no Surgical Guide Book Status: Patient given book today. Dialysis Guide Book Status: N/A Allergies Reviewed: Yes Medications Reviewed: Yes Is patient currently on oral steroids?: No Has the patient had a UTI in the past month?: No. Does the patient have any artificial joints (last 2 years), metal parts, pacemakers or cardiac/ureteral stents in place?: Yes, right hip replacement, Does the patient have diabetes?: No Is the patient routinely taking anticoagulants?: Yes. Patient stopped coumadin on on 10/31. Will continue taking aspirin Can the patient have an IV put in either arm?: Yes Urine Dip Complete?: Yes URINE CULTURE COMPLETE?: ordered Ostomy/Stoma Nurse appointment made/completed: N/A IMPACT/Medical Clearance: Cleared per IMPACT - Yes [facility] Clinic: Cleared per [facility] - N/A All testing on cureform has been scheduled: Yes Consent Signed: Consent not in [facility]. Surgeon notified via staff mesage. DOS Orders Placed and Signed: Yes. Pre-op H&P Done by [employer]: Yes. PATIENT INSTRUCTIONS FOR SURGERY 1.) DO NOT HAVE ANYTHING TO EAT AFTER MIDNIGHT THE DAY BEFORE SURGERY except for certain morning medications as instructed by the doctor. Candy, mints, gum, and smoking are NOT permitted. You may drink clear liquids (Sprite, water, cristina daja) up to two hours before your arrival time on the day of surgery. 2.) Medications to be taken on the morning of surgery with a few sips of water: per IMPACT 3.) Please bring all your prescribed inhalers (if you have any you normally take) to the hospital. 4.) Arrival time: Call for arrival. 5.) Prep given: No 6.) Lovenox instructions given: N/A 7.) Patient reminded that surgery time provided day before surgery is tentative based on potential changes with transplants. Recommendations: This patient is optimally prepared for surgery pending LABS. John Humphreys PA-C documented in this encounter [facility] 11-03-2023 Instructions Haily Nunez PA-C - 11/03/2023 1:10 PM EDT PATIENT PREOPERATIVE INSTRUCTIONS Roxana Bah MD has scheduled you for your procedure at this surgery center: [facility] [place] Scheduling Office: [phone] --[address] [place] [address]. Please read below carefully for your personalized instructions. Dietary Restrictions: - No solid food after midnight. - You may have 12 ounces of clear liquids (water, clear juices such as apple juice or gatorade, carbonated beverages, clear tea, black coffee, jello) until 2 hours before scheduled arrival at facility. Medications: Unless instructed differently below, stay on all of your medications until your surgery. If you start any new medications after today's visit, please contact your surgeon. Pre-Surgery Med Instructions Medication Instructions aspirin, enteric coated (ASPIRIN, ENTERIC COATED) 81 mg EC tablet Stop 7 days before surgery. Please discuss with surgical team if you should continue to stay on this prior to surgery pravastatin (PRAVACHOL) 40 mg tablet Take the night before surgery warfarin (COUMADIN) 6 mg tablet Stop 5 days before surgery dilTIAZem CD (CARDIZEM CD, CARTIA XT) 120 mg 24 hr capsule Take the night before surgery carvedilol (COREG) 25 mg tablet Take the day of surgery with a small sip of water lisinopril (ZESTRIL) 10 mg tablet DO NOT TAKE YOUR Lisinopril THE NIGHT BEFORE OR MORNING OF SURGERY. tamsulosin (FLOMAX) 0.4 mg Take the night before surgery fluticasone (FLONASE) 50 mcg/actuation nasal spray Use if needed bicalutamide (CASODEX) 50 mg tablet Take the day of surgery with a small sip of water If you take any medications for erectile dysfunction-Cialis (Tadalafil), Levitra, Staxyn (Vardenafil) Viagra (Sildenenafil please do not take these for 48 hours before surgery. If you start any new medications after today's visit, please contact the surgeon's office. Blood Thinning Medications: - Stop NSAIDS (Ibuprofen, Advil, Aleve, Motrin, Celebrex, Mobic, etc.) 7 days before surgery, as directed by your surgeon. - Stop Coumadin 5 days before surgery or as directed by physician. - Stop Vitamin E, ALL multi-vitamins, herbals and dietary supplements 7 days before surgery. - You may take Tylenol (Acetaminophen) or any of your pain medications that do not contain aspirin or NSAIDS as needed. - Please follow aspirin instructions from your surgical team Important Reminders: - Candy, mints, and tobacco products are NOT permitted the morning of surgery. - Hearing aids, dentures and glasses may be worn the morning of surgery. - NO jewelry, body piercings, makeup, hairpins or contacts are to be worn the day of surgery. If you develop symptoms such as a fever, cold, or flu, or have other changes to your health within TWO DAYS of scheduled surgery or the morning of surgery, please contact the surgery center above. Personal Belongings: -Please have photo ID and insurance cards. -If you do not have a copy of advance directives on file with us, please bring a copy with you on the day of surgery. - Leave ALL valuables and money at home or with family members. Arrival Time for Surgery: - To obtain your arrival time for surgery, call your physician's office the day before your surgery. - If your surgery is scheduled for Thursday, call the Thursday before. Your surgeon s electrician office will tell you what time to call the office. - If you have not reached the departmental electrician office by 5 P.M., call [phone] after 5 P.M. the day before your surgery. Please be aware that emergency situations arise, which may delay or change your surgical time. If this happens, we will notify you as soon as possible and regret any inconvenience. If you already have an Advance Directive, please fax a copy to [phone] or email to for it to be added to your chart. If you do not have an Advance Directive, you can find the appropriate form and more information at [email or web address]. We recommend that you complete the Advance Directive form found on the website and bring it with you the day of your surgery. It can be witnessed and scanned into your chart that day. Haily Nunez PA-C documented in this encounter [facility] 11-03-2023 History and physical note Images from the original note were not included. 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 Lozano, last OV 01/2023. Compliant on medications. Appears euvolemic, denies new or worsening cardiac symptoms. -ECHO 2020: LVEF 40% Chronic ischemic heart disease Assessment: Denies any new or worsening cardiac symptoms. Follows [facility] in [place] last OV 01/2023. Reports compliance to medication. Denies any history of stents, CABG, reports [facility] x3, most recent ~2017. Recent cardiac testing . -NM Cardiac Perfusion Test 11/03/2023: negative for ischemia -Denies any CP, SOB, dyspnea, dizziness, palpitations, edema or syncope Chronic systolic (congestive) heart failure (HCC) Assessment: Follows cardiology Dr. Huff, last OV 01/2023. Compliant on medications. Appears euvolemic, denies new or worsening cardiac symptoms. -ECHO 2020: LVEF 40% Essential hypertension Assessment: Stable, compliant on Carvedilol, Diltiazem and Lisinopril. Follows with PCP. Last 3 Encounter BP Readings: Date: BP: 11/03/2023 117/82 10/02/2023 154/96 Mixed hyperlipidemia Assessment; stable on Pravastatin Paroxysmal atrial fibrillation (HCC) Assessment: Follows [facility] [employer] Dr. Lozano , last OV 01/2023. Reports compliance to medication, Carvedilol, Diltiazem. On OAC Coumadin. Denies any dizziness, syncope, palpitations, CP, SOB. Ejection Fraction: No results found CHADS2-Vasc Score Breakdown 3 Total Score 1 History of CHF 1 History of hypertension 1 History of vascular disease Malignant neoplasm of prostate (HCC) Assessment: scheduled for radical prostatectomy on 11/05/2023 Asthma Assessment: follows with PCP, does not currently use inhalers. Undergoes steroid injections every 3 months. Denies any new or worsening pulmonary symptoms. SpO2 99% RA, lungs CTAB [place] Activity Status Index: METS: Climb a flight of stairs or walk up a hill (5.50 METs) DASI Score: 5.5 Patient denies any chest pain or undue shortness of breath with the above physical activity. Clinical Frailty Scale: 3. Well, with treated comorbid disease STOP-Bang Score: Has or is being treated for high blood pressure Patient over 50 years old Male patient Denies snoring loudly Denies feeling tired, fatigued, or sleepy during the daytime Has not been observed to stop breathing or choking/gasping during sleep BMI less than or equal to 35 kg/m^2 Does not have a large neck STOP-Bang Score: 3 [id number] Score: Age: <65 Sex: male CHF history: Yes Hypertension history: Yes Stroke/TIA/thromboembolism history: No Vascular disease history: Yes Diabetes history: No [id number] Score: 3 ARISCAT Score: Age: 51-80 Preoperative SpO2: >=96% Preoperative anemia: Yes Surgical incision: peripheral Duration of surgery: >3 hrs Emergency procedure: No ARISCAT Score: ANESTHESIA FINDINGS: Intubation History: No history of difficult intubation. No abnormal airway history Significant Anesthesia Considerations: none Airway History: No history of difficult airway No abnormal airway history I - PHYSICAL EVALUATION AIRWAY Patient intubated: No. Tracheostomy tube not present Mallampati: II. TM distance: >3 FB. Neck ROM: full ROM without neurological symptoms. Mouth opening: adequate. Short neck: no. Thick neck: no Macias present: no Microretrognathia/Micronagthia/Re cessed Chin: No DENTAL Dental findings: broken tooth and missing tooth/teeth. II - ANESTHESIA PLAN Anesthetic Plan: other Anesthetic plan additional comments: *[facility] - anesthesia choice. Beta José Miguel Monitoring Plan Post Procedure Analgesic Plan Prepared for Surgery: optimally prepared for surgery, pending [see comment]. Pre op labs, EKG, ECHO, stress test per surgical team DOS exam Patient instructed to hold Coumadin 5 days prior to surgery, per patient states he was told it was okay Will fax request to Dr. Lozano's office for cardiac cath records CONSULTS: Patient does not require consults for optimization at this time Planned Anesthetic: other anesthesia choice The Following Tests/Procedures Have Been Initiated: No orders of the defined types were placed in this encounter. Addendum November 04, 2023 Pre op ECHO, EKG and stress test reviewed. ECHO with EF 53%, stress test negative for ischemia. Pre op lab work and EKG reviewed and acceptable for procedure. Patient is optimized for scheduled surgery. Haily Nunez PA-C REASON FOR VISIT: Sukhdeep Gamino is a 62 year old male who is scheduled for Procedure(s): ROBOTIC LAPAROSCOPIC RETROPUBIC RADICAL PROSTATECTOMY W/ NERVE SPARING (N/A) at the request of Roxana Dickinson MD for consultation. My final recommendation will be communicated back to the requesting physician by way of shared medical record or letter. Subjective The patient has the following: ACTIVE PROBLEM LIST Chronic Ischemic Heart Disease Chronic Systolic (Congestive) Heart Failure (Hcc) Mixed Hyperlipidemia Asthma Paroxysmal Atrial Fibrillation (Hcc) Cardiomyopathy in Diseases Classified Elsewhere (Hcc) Benign Prostatic Hyperplasia With Urinary Obstruction Essential Hypertension Malignant Neoplasm of Prostate (Hcc) COVID-19 Immunization Status Overdue - Covid-19 Vaccine ( season) Overdue since 04/03/2023 11/01/2020 Imm Admin: COVID-19 original vaccine, age 12+ yr, monovalent (PFIZER-BIONTECH - PURPLE TOP) 10/11/2020 Imm Admin: COVID-19 original vaccine, age 12+ yr, monovalent (PFIZER-BIONTECH - PURPLE TOP) CHIEF COMPLAINT: pre op exam HPI: Patient is a 62 yo male who presents to [facility] for the above procedure. He reports history of elevated PSA and BPH with LUTS, underwent prostate biopsy which revealed prostate CA. Does endorse urinary retention that has improved with Flomax, denies any dysuria, urgency, hematuria. Denies any CP, SOB, fever, chills, n/v/d, NIEVES or dizziness. Recommended above procedure and elects to proceed. REVIEW OF SYSTEMS: General: No weight loss, malaise or fevers. Neurological: No history of TIA's, stroke, SYSTEMS ENGINEER tumor, impaired sensorium, hemiplegia, paraplegia or quadraplegia. No neurological symptoms or problems. Respiratory: Positive for: asthma. Negative for: bronchitis, COPD, current cough, bronchodilator used daily for the last 3 months, dyspnea, home oxygen, orthopnea, pneumonia within 6 weeks, tobacco use, URI < 2 weeks and obstructive sleep apnea. Cardiovascular: Positive for: anticoagulation therapy, atrial fibrillation, CAD, CHF, hyperlipidemia and hypertension Patient's last office visit with organ pipe maker metal, Dr. Huff, was 02/2024. The following tests and/or procedures were performed: cardiac catheterization and echocardiogram. Negative for: abdominal aortic aneurysm, AICD/PPM, angina, arrhythmia, chest pain, congenital heart defect, DVT/PE, recent ME, murmur/valvular heart disease, PTCA, PVD, open heart surgery and valve surgery. GI: No history of GI symptoms or problems. No history of esophageal varices, recent ascites, or ETOH greater than 2 drinks per day. : See HPI. Endocrine: No history of diabetes. Has not taken steroids within the past 30 days. No history of endocrinological symptoms or problems. Hematology: Positive for: chronic anti-coagulation/platelet meds. Patient is on anti-coagulation/platelet medication(s): Coumadin. Negative for: anemia, bruises/bleeds easily, factor V Leiden, hemophilia, thrombocytopenia, von Willebrand disease and transfusion of at least 4 units within 72 hours prior to surgery. Oncology: +prostate CA Negative for: CA metastasis, chemo within 30 days, disseminated cancer and radiotherapy within 90 days. Psych: No history of psychiatric symptoms or problems. Musculoskeletal: Negative for joint pain or swelling, back pain or muscle pain. Skin: Negative for lesions, rash and itching. History reviewed. No pertinent past medical history. PAST SURGICAL HISTORY Procedure Laterality Date SINUS SURGERY HX TOTAL HIP REPLACEMENT 2020 History reviewed. No pertinent family history. Social History Tobacco Use Smoking status: Never Smokeless tobacco: Never Substance Use Topics Alcohol use: Never Drug use: Never Prior to Admission medications as of 11/03/23 1450 Medication Sig Last Dose Taking aspirin, enteric coated (ASPIRIN, ENTERIC COATED) 81 mg EC tablet in the morning. Taking Yes pravastatin (PRAVACHOL) 40 mg tablet Take 40 mg by mouth daily at bedtime. Taking Yes warfarin (COUMADIN) 6 mg tablet Take 1 tablet by mouth every afternoon. Taking Yes dilTIAZem CD (CARDIZEM CD, CARTIA XT) 120 mg 24 hr capsule TAKE 1 CAPSULE BY MOUTH ONCE DAILY DIRECTED Taking Yes carvedilol (COREG) 25 mg tablet TAKE 1 TABLET BY MOUTH IN THE MORNING AND AT BEDTIME Taking Yes lisinopril (ZESTRIL) 10 mg tablet Take 10 mg by mouth once daily. Taking Yes tamsulosin (FLOMAX) 0.4 mg Take 1 capsule by mouth every afternoon. Taking Yes fluticasone (FLONASE) 50 mcg/actuation nasal spray 1 [place]. Taking Yes bicalutamide (CASODEX) 50 mg tablet Take 1 tablet by mouth once daily. Taking Yes No medication comments found. ALLERGIES No Known Allergies Objective PHYSICAL EXAM: General: alert and oriented and healthy appearance. Pertinent negatives noted - not distressed. Skin: normal color, no rash or lesions. HEENT: pupils equal round and pupils reactive to light. Cardiovascular: Pulse characterized as irregular. Respiratory: normal breath sounds, no wheezes or crackles. No chest wall deformity or tenderness. Abdomen: bowel sounds present and soft. Extremities: no deformity, no edema or tenderness, no joint swelling or clubbing. Neurological: normal cognition and motor skills. Gait normal. No weakness or sensory deficit. PAIN ASSESSMENT: VITALS: BP 117/82 Pulse 87 Temp (Src) 97.2 (Temporal) Ht 5' 10 (1.78m) Wt 191 lb 5.8 oz (86.8kg) SpO2 99% BMI 27.46 kg/(m^2). Diagnostic tests reviewed for today's visit: Lab Value Units Date High Low HB 14.3 g/dL 11/03/2023 17.0 13.0 HCT 43.8 % 11/03/2023 51.0 39.0 WBC 9.85 k/uL 11/03/2023 11.00 3.70 PLT 338 k/uL 11/03/2023 400 150 NA 141 mmol/L 11/03/2023 144 136 K 4.8 mmol/L 11/03/2023 5.1 3.7 GLUC 105 mg/dL 11/03/2023 99 74 BUN 25 mg/dL 11/03/2023 24 9 CREAT 1.29 mg/dL 11/03/2023 1.22 0.73 PTSEC 13.2 sec 11/03/2023 13.0 9.7 INR 1.3 no uni* 11/03/2023 1.3 0.9 APTT 27.4 sec 11/03/2023 32.4 23.0 ALT 19 U/L 11/03/2023 54 10 AST 17 U/L 11/03/2023 40 14 TBILI 0.8 mg/dL 11/03/2023 1.3 0.2 TSH No results within date range. Lab Value Units Date High Low HCGQT No results within date range. UHCG No results within date range. HCG, BODY* No results within date range. Lab Value Units Date High Low ABORHD No results within date range. ABSCREEN No results within date range. No results found for: HBA1C Recent Results (from the past 8760 hour(s)) ECG COMPLETE Collection Time: 11/03/23 3:54 PM Result Value Ventricular Rate 97 QRS Duration 80 QT Interval 364 QTC Calculation (Bazett) 462 Calculated R [place] -36 Calculated T [place] 5 Impression ATRIAL FIBRILLATION LEFT AXIS DEVIATION AGE UNDETERMINED ABNORMAL ECG Recent Results (from the past 42374 hour(s)) ECHO Collection Time: 11/03/23 3:14 PM Impression CONCLUSIONS: - Exam indication: Pre-op non-cardiac, H/o Afib, HF - The left ventricle is normal in size. Left ventricular systolic function is normal. EF = 53 5% (2D biplane) Left ventricular diastolic function was not evaluated due to AF. - The right ventricle is normal in size. Right ventricular systolic function is normal. - The left atrial cavity is dilated. - The right atrial cavity is dilated. - The visualized aorta is dilated with a maximal dimension of 4.1 cm. - The patient has not had a prior [facility] echocardiographic exam for comparison. * * * Final * * * NM Cardiac Perfusion Stress Test 11/03/2023 CONCLUSIONS: 1. SPECT Perfusion Study: Normal. 2. There is no scintigraphic evidence for inducible ischemia. 3. No evidence of scarred myocardium. 4. Left ventricle is normal in size. The left ventricle systolic function is normal. 5. Right ventricle is normal in size. The right ventricle systolic function is normal. 6. This is a low risk scan. Gated Stress FBP Gated Rest FBP LVEF % 61 59 ECHO 04/12/2020 04/12/20 Echo Left Ventricle: The left ventricle [...] results found for the past 12 months Instructions Given to Patient: Instructions located in the after visit summary. Patient given verbal and written preop instructions and voices comprehension and compliance. SIGNATURE: Haily Nunez PA-C PATIENT NAME: Sukhdeep Gamino DATE: November 03, 2023 TIME: 12:38 PM PAGER/CONTACT #: documented in this encounter [facility] 11-03-2023 History of Present illness Narrative RADIOLOGY SERVICE PROGRESS NOTE SERVICE DATE: 11/03/2023 SERVICE TIME: 9:16 AM PATIENT IDENTITY VERIFICATION COMPLETED USING TWO (2) STANDARD IDENTIFIERS: Name and Date of confirmed by patient verbally FALL SCREENING: Has the patient had 2 falls in the last year or 1 fall with injury or currently using an Ambulatory Assistive Device (Walker, Cane, Wheelchair, Crutches, etc.)? No PATIENT GENDER DATA: .male ALLERGIES: Reviewed and unchanged MEDICATIONS REVIEWED: Not applicable PATIENT RELEVANT IMPLANT DATA REVIEWED: Not Applicable PATIENT PRESENTS WITH AN IMPLANTABLE OR ATTACHED FOSTER PARENT: No CREATININE: No results found for: CREAT , EGFROTH , EGFRAA P.O.C.T. RESULTS: N/A November 03, [address] PERFORMED: No IV SITE: Ambulatory: A peripheral IV was started in the Left antecubital site with a Angio cath: 22 gauge. POST EXAM PIV STATUS: Discontinued PROCEDURE TYPE: NM Stress: 11.8 mCi Hi80b-Giseqqb was administered IV for Rest Imaging at 0915 by carolyn gomez. 31.2 mCi Pb64x-Xknshjh was administered IV for Stress Imaging at 1005 by NEMESIO. PATIENT DISCHARGED TO: Ambulatory patient, left MD department area. A Diagnostic radioactive procedure has taken place, with no further precautions necessary other than routine body substance precautions. More information regarding radiation safety can be found using this link: [email or web address] [email or web address]-%20Diagnostic%20Nucl ear%20Medicine%20Procedures.pdf SIGNATURE: RT Channing(Betty) PATIENT NAME: Sukhdeep Gamino DATE: November 03, 2023 TIME: 9:16 AM PAGER/CONTACT #: RADIOLOGY SERVICE PROGRESS NOTE SERVICE DATE: 11/03/2023 SERVICE TIME: 10:10 AM PATIENT IDENTITY VERIFICATION COMPLETED USING TWO (2) STANDARD IDENTIFIERS: Name and Date of confirmed by patient verbally and Name and Date of confirmed by identification band PATIENT GENDER DATA: male ALLERGIES: Reviewed and unchanged MEDICATIONS REVIEWED BY: Operator Vacuum PROCEDURE TYPE: NM STRESS: 0.4 mg of Lexiscan was administered IV at 1005 by Meredith Cazares RN . Reversal agent used: None. Expiration date: 06/2025 Lot#: [id number] IV SITE: Ambulatory: A Saline lock was inserted per protocol POST EXAM PIV STATUS: Discontinued PATIENT DISCHARGED TO: Ambulatory patient, left MD department area. A Diagnostic radioactive procedure has taken place, with no further precautions necessary other than routine body substance precautions. More information regarding radiation safety can be found using this link: [email or web address] [email or web address]-%20Diagnostic%20Nucl ear%20Medicine%20Procedures.pdf SIGNATURE: Meredith Cazares RN PATIENT NAME: Sukhdeep Gamino DATE: November 03, 2023 TIME: 10:10 AM PAGER/CONTACT #: documented in this encounter [facility] 11-03-2023 Note HNO ID: [id number] Author: YONG HERNÁNDEZ Tech Service: Nuclear Medicine Author Type: Technologist Type: Progress Notes Filed: 11/03/2023 10:08 Note Text: RADIOLOGY SERVICE PROGRESS NOTE SERVICE DATE: 11/03/2023 SERVICE TIME: 9:16 AM PATIENT IDENTITY VERIFICATION COMPLETED USING TWO (2) STANDARD IDENTIFIERS: Name and Date of confirmed by patient verbally FALL SCREENING: Has the patient had 2 falls in the last year or 1 fall with injury or currently using an Ambulatory Assistive Device (Walker, Cane, Wheelchair, Crutches, etc.)? No PATIENT GENDER DATA: .male ALLERGIES: Reviewed and unchanged MEDICATIONS REVIEWED: Not applicable PATIENT RELEVANT IMPLANT DATA REVIEWED: Not Applicable PATIENT PRESENTS WITH AN IMPLANTABLE OR ATTACHED FOSTER PARENT: No CREATININE: No results found for: CREAT , EGFROTH , EGFRAA P.O.C.T. RESULTS: N/A November 03, [address] PERFORMED: No IV SITE: Ambulatory: A peripheral IV was started in the Left antecubital site with a Angio cath: 22 gauge. POST EXAM PIV STATUS: Discontinued PROCEDURE TYPE: NM Stress: 11.8 mCi Qv75g-Jaghfej was administered IV for Rest Imaging at 0915 by carolyn gomez. 31.2 mCi [id number]-Dsoewxa was administered IV for Stress Imaging at 1005 by NEMESIO. PATIENT DISCHARGED TO: Ambulatory patient, left NM department area. A Diagnostic radioactive procedure has taken place, with no further precautions necessary other than routine body substance precautions. More information regarding radiation safety can be found using this link: [email or web address] [email or web address]-% 20Diagnostic%20Nuclear%20Medicine %20Procedures.pdf SIGNATURE: RT Channing(R) PATIENT NAME: Sukhdeep Gamino DATE: November 03, 2023 TIME: 9:16 AM PAGER/CONTACT #: [facility] 11-03-2023 Note HNO ID: [id number] Author: MEREDITH CAZARES RN Service: Nursing Author Type: Registered Nurse Type: Progress Notes Filed: 11/03/2023 10:11 Note Text: RADIOLOGY SERVICE PROGRESS NOTE SERVICE DATE: 11/03/2023 SERVICE TIME: 10:10 AM PATIENT IDENTITY VERIFICATION COMPLETED USING TWO (2) STANDARD IDENTIFIERS: Name and Date of confirmed by patient verbally and Name and Date of confirmed by identification band PATIENT GENDER DATA: male ALLERGIES: Reviewed and unchanged MEDICATIONS REVIEWED BY: Operator Vacuum PROCEDURE TYPE: NM STRESS: 0.4 mg of Lexiscan was administered IV at 1005 by Meredith Cazares RN . Reversal agent used: None. Expiration date: 06/2025 Lot#: [id number] IV SITE: Ambulatory: A Saline lock was inserted per protocol POST EXAM PIV STATUS: Discontinued PATIENT DISCHARGED TO: Ambulatory patient, left NM department area. A Diagnostic radioactive procedure has taken place, with no further precautions necessary other than routine body substance precautions. More information regarding radiation safety can be found using this link: [email or web address] [email or web address]-% 20Diagnostic%20Nuclear%20Medicine %20Procedures.pdf SIGNATURE: Meredith Cazares RN PATIENT NAME: Sukhdeep Gamino DATE: November 03, 2023 TIME: 10:10 AM PAGER/CONTACT #: [facility] 11-03-2023 Note Patient Outreach (UR OLMN) SUKHDEEP GAMINO ([id number]) 1960 M Date Time Provider Department 11/03/23 JOHN HUMPHREYS During your visit today, we recorded the following information about you: Allergies As of Date: 11/03/2023 (No Known Allergies) Date Reviewed: 11/03/2023 Reviewed by: John Humphreys PA - Fully Assessed Visit Diagnosis:Screening for genitourinary condition [Z13.89] Order(s):URINALYSIS, REFLEX MICROSCOPIC [[id number]] Order #: [id number]. #:[id number] Prescriptions as of 11/06/2023 - aspirin, enteric coated (ASPIRIN, ENTERIC COATED) 81 mg EC tablet in the morning. - pravastatin (PRAVACHOL) 40 mg tablet Take 40 mg by mouth daily at bedtime. - warfarin (COUMADIN) 6 mg tablet Take 1 tablet by mouth every afternoon. - dilTIAZem CD (CARDIZEM CD, CARTIA XT) 120 mg 24 hr capsule TAKE 1 CAPSULE BY MOUTH ONCE DAILY DIRECTED - carvedilol (COREG) 25 mg tablet TAKE 1 TABLET BY MOUTH IN THE MORNING AND AT BEDTIME - lisinopril (ZESTRIL) 10 mg tablet Take 10 mg by mouth once daily. - tamsulosin (FLOMAX) 0.4 mg Take 1 capsule by mouth every afternoon. - fluticasone (FLONASE) 50 mcg/actuation nasal spray 1 [place]. - bicalutamide (CASODEX) 50 mg tablet Take 1 tablet by mouth once daily. Facility-Administered Medications as of 11/06/2023 - carvedilol 25 mg tab(s) (COREG) - pravastatin 40 mg tab(s) (PRAVACHOL) - lisinopril 10 mg tab(s) (ZESTRIL) - dilTIAZem CD 120 mg cap(s) (CARDIZEM CD, CARTIA XT) - aspirin, enteric coated 81 mg tab(s) - ceFAZolin iv piggyback 1 g in D5W (iso-osmotic) 50 mL (ANCEF) - acetaminophen 1,000 mg tab(s) (TYLENOL) - ondansetron (PF) 4 mg injection (ZOFRAN) - magnesium hydroxide 400 mg/5 mL 30 mL (MOM) - docusate sodium 100 mg cap(s) (COLACE) - pantoprazole DR 40 mg tab(s) (PROTONIX) - NaCl 0.9% iv infusion - oxyCODONE IR 5 mg tab(s) (ROXICODONE) - HYDROmorphone 0.4 mg injection (DILAUDID) - diphenhydrAMINE 25 mg injection (BENADRYL) - simethicone, chewable 80 mg tab(s) (MYLICON) - trospium 20 mg tab(s) (SANCTURA) - heparin 5,000 Units injection Problem List As Of Date 11/03/2023 Noted Resolved Chronic ischemic heart disease [I25.9] 01/02/2023 Chronic systolic (congestive) heart failure (HC*01/02/2023 Mixed hyperlipidemia [E78.2] 01/02/2023 Asthma [J45.909] 03/03/2012 Paroxysmal atrial fibrillation (HCC) [I48.0] 03/03/2012 Cardiomyopathy in diseases classified elsewhere*01/02/2023 Benign prostatic hyperplasia with urinary obstr*08/10/2023 Essential hypertension [I10] 03/03/2012 Malignant neoplasm of prostate (HCC) [C61] 08/31/2023 Encounter Status:Closed by [facility], [employer] on 11/06/23 [facility] 10-02-2023 History of Present illness Narrative Images from the original note were not included. Referring Provider: Cesia Weeks Chief Complaint: Prostate cancer HPI Sukhdeep Gamino is a 62 year old male with history of elevated PSA with recent diagnosis of prostate cancer. Most recent PSA 7.8. Underwent prostate biopsy that demonstrated [place] 4+5=9, GG5, 90% highest involvement. Bone scan negative. PSMA PET demosntrating uptake in left posterior PZ but no local or distant mets. IPSS 6 AUA SS10 Family History of Genitourinary Cancer: No PMH: Afib (on Coumdin), HTN, HLD, BPH, CHF PSH: None PATHOLOGY Prostate Biopsy (08/27/23) LABS PSA 07/29/23 7.8 04/30/23 6.9 IMAGING PSMA PET (09/14/23) Bone Scan (09/02/23) REVIEW OF SYSTEMS GENERAL: Negative for fevers, chills, or night sweats. HEENT: Negative for sudden vision or hearing changes. RESPIRATORY: Negative for cough or shortness of breath. CARDIAC: Negative for chest pain, palpitations, murmurs, or syncopal episodes. GASTROINTESTINAL: Negative for diarrhea, constipation, abdominal pain and poor appetite. GENITOURINARY: See HPI. MUSCULOSKELETAL: Negative Bone Aches/pain NEUROLOGIC: Negative for dizziness, headache, weakness or numbness. HEMATOLOGIC: Negative for bleeding or easy bruising. SKIN: Negative for rashes or other skin changes. HISTORIES No past medical history on file. No family history on file. SOCIAL HISTORY PHYSICAL EXAMINATION VITALS: There were no vitals taken for this visit. GENERAL: alert, no distress, normal affect EYES: no icterus, no discharge, conjugate gaze CARDIOVASCULAR: hemodynamically stable RESPIRATORY: normal effort, regular rate, no audible wheeze ABDOMEN: nonobese, soft, non-tender, non-distended GENITOURINARY: no flank tenderness EXTREMITIES: warm, no dependent edema, no malformations SKIN: no abnormal bruising, no rashes, no cyanosis NEUROLOGIC: normal gait, good manual dexterity, no paralysis Assessment Sukhdeep Gamino is a 62 year old male with history of HTN, HLD, asthma, CHF, Afib (on Coumadin), elevated PSA with recent diagnosis of very high risk prostate cancer (PSA 7.8, Eldridge 4+6=9, 90% high involvement) with negative bone scan and negative local or distant mets on PSMA PET. IPSS 6, severe ED. AUA SS 10, moderate. Plan - Plan for RALP with bilateral lymphadenectomy on 11/05/2023 with pre-ops including PACC, pre-op teaching, labs, EKG, Echo, NM Stress Test as close to home as possible. All pre-op testing should be done on 11/02/2023 or after. - Stop coumadin 5 days prior to surgery Radha Hernandez MD PGY-2 Resident Physician Urology I personally interviewed, examined, confirmed and edited the history documented by the Resident. Assessment : prostate CA Plan : above Roxana Bah MD documented in this encounter [facility] 10-02-2023 Note HNO ID: [id number] Author: ROXANA BAH MD Service: ? Author Type: Physician Type: Progress Notes Filed: 11/08/2023 12:24 Note Text: Referring Provider: Cesia Weeks Chief Complaint: Prostate cancer HPI Sukhdeep Gamino is a 62 year old male with history of elevated PSA with recent diagnosis of prostate cancer. Most recent PSA 7.8. Underwent prostate biopsy that demonstrated Eldridge 4+5=9, GG5, 90% highest involvement. Bone scan negative. PSMA PET demosntrating uptake in left posterior PZ but no local or distant mets. IPSS 6 AUA SS10 Family History of Genitourinary Cancer: No PMH: Afib (on Coumdin), HTN, HLD, BPH, CHF PSH: None PATHOLOGY Prostate Biopsy (08/27/23) LABS PSA 07/29/23 7.8 04/30/23 6.9 IMAGING PSMA PET (09/14/23) Bone Scan (09/02/23) REVIEW OF SYSTEMS GENERAL: Negative for fevers, chills, or night sweats. HEENT: Negative for sudden vision or hearing changes. RESPIRATORY: Negative for cough or shortness of breath. CARDIAC: Negative for chest pain, palpitations, murmurs, or syncopal episodes. GASTROINTESTINAL: Negative for diarrhea, constipation, abdominal pain and poor appetite. GENITOURINARY: See HPI. MUSCULOSKELETAL: Negative Bone Aches/pain NEUROLOGIC: Negative for dizziness, headache, weakness or numbness. HEMATOLOGIC: Negative for bleeding or easy bruising. SKIN: Negative for rashes or other skin changes. HISTORIES No past medical history on file. No family history on file. SOCIAL HISTORY PHYSICAL EXAMINATION VITALS: There were no vitals taken for this visit. GENERAL: alert, no distress, normal affect EYES: no icterus, no discharge, conjugate gaze CARDIOVASCULAR: hemodynamically stable RESPIRATORY: normal effort, regular rate, no audible wheeze ABDOMEN: nonobese, soft, non-tender, non-distended GENITOURINARY: no flank tenderness EXTREMITIES: warm, no dependent edema, no malformations SKIN: no abnormal bruising, no rashes, no cyanosis NEUROLOGIC: normal gait, good manual dexterity, no paralysis Assessment Sukhdeep Gamino is a 62 year old male with history of HTN, HLD, asthma, CHF, Afib (on Coumadin), elevated PSA with recent diagnosis of very high risk prostate cancer (PSA 7.8, Eldridge 4+6=9, 90% high involvement) with negative bone scan and negative local or distant mets on PSMA PET. IPSS 6, severe ED. AUA SS 10, moderate. Plan - Plan for RALP with bilateral lymphadenectomy on 11/05/2023 with pre-ops including PACC, pre-op teaching, labs, EKG, Echo, NM Stress Test as close to home as possible. All pre-op testing should be done on 11/02/2023 or after. - Stop coumadin 5 days prior to surgery Radha Hernandez MD PGY-2 Resident Physician Urology I personally interviewed, examined, confirmed and edited the history documented by the Resident. Assessment : prostate CA Plan : above Roxana Bah MD [facility] 10-02-2023 Note Patient Outreach (UR OLMN) SUKHDEEP GAMINO ([id number]) 1960 M Date Time Provider Department 10/02/23 ROXANA BAH During your visit today, we recorded the following information about you: Allergies As of Date: 10/02/2023 (Not on File) Date Reviewed: 10/02/2023 Reviewed by: Jennyfer Cahcon OCCA - Fully Assessed Visit Diagnosis:Screening for genitourinary condition [Z13.89] Order(s):URINALYSIS, REFLEX MICROSCOPIC [ORF3107] Order #: [id number]. #:[id number] Prescriptions as of 10/05/2023 - aspirin, enteric coated (ASPIRIN, ENTERIC COATED) 81 mg EC tablet in the morning. - pravastatin (PRAVACHOL) 40 mg tablet Take 40 mg by mouth daily at bedtime. - warfarin (COUMADIN) 6 mg tablet Take 1 tablet by mouth every afternoon. - dilTIAZem CD (CARDIZEM CD, CARTIA XT) 120 mg 24 hr capsule TAKE 1 CAPSULE BY MOUTH ONCE DAILY DIRECTED - carvedilol (COREG) 25 mg tablet TAKE 1 TABLET BY MOUTH IN THE MORNING AND AT BEDTIME - lisinopril (ZESTRIL) 10 mg tablet Take 10 mg by mouth once daily. - tamsulosin (FLOMAX) 0.4 mg Take 1 capsule by mouth every afternoon. - fluticasone (FLONASE) 50 mcg/actuation nasal spray 1 [place]. - bicalutamide (CASODEX) 50 mg tablet Take 1 tablet by mouth once daily. Problem List As Of Date: 10/02/2023 (None) Encounter Status:Closed by [facility], PRODUSER on 10/05/23 [facility] 09-02-2023 Miscellaneous Notes PT is OON Sabianist Self pay DO NOT SCHEDULE TILL APPROVED, [facility] referral [id number], Questions contact [email or web address] PreAccess obtained approval OK to schedule Authorization number: PSMA Authorization date range: PSMA Primary Insurance: Sabianist Self pay OON Diagnosis: Prostate Cancer C61 DX Imaging: N/A Pathology: 08-26-23 Prostate biopsy Adenocarcinoma GS 4+5 = 9, 90% Labs: 07-29-23 PSA 7.8 04-30-23 PSA 6.9 Clinical Notes Reviewed: 08-31-23 External Urology Date of last: na Additional Information: N/A Radiologist Reviewed: N/A Initial/Subsequent: Subsequent Treatment Strategy: 0093 PET Protocol: PSMA Diagnostic Imaging Requested: No Is this a Pretreatment and/or an initial Pet scan: No - Schedule as requested Comments for Wiring Inspector: Joseph ROUTE TO SCHEDULERS [place] P PET VAULT INSTALLER or P NM SPECIAL STUDIES This form is used for MAIN CAMPUS APPOINTMENTS ONLY. Is this request for a [place] PET scan appointment? Yes: Contract Sheltered Workshop Supervisor: María Schwartz [facility] Requesting Person Dr Weeks: Area Code + Phone/Pager: [phone] Who do we call to schedule this appointment? Other Contact: External Order From [facility] please route to Regine Marcus in [place] for scheduleing pt is approved through [facility] Requesting Staff Dr weeks Area Code + Phone/Pager: [phone] PET Orders (A delay in scheduling will result if the orders are not present at time of review): External. Has the External Clinical Order been scanned into [facility]? Yes ADDITIONAL ACTION MAY BE REQUIRED IF PATIENTS OON INSURANCE OR SELF PAY COVERAGE HAS NOT BEEN CLEARED FOR REQUESTED APPOINTMENT. Scheduling: SUKHJINDER: As soon as insurance will allow What account will this PET appointment be linked to? P/F Type of PET: Oncology: Are there additional diagnostic CT scans required to be done at time of PET scan? No Is the request for a PET MR ? No What account will diagnostic testing appointment be linked to? P/F Will the patient need anesthesia? NO Send requests to P [facility] REVIEW documented in this encounter [facility] 08-31-2023 Hospital Discharge instructions Patient Education 08/31/2023 [...] under a microscope. This is called the Eldridge score and the total score can range from 6 10, indicating how likely it is that the cancer will spread (metastasize) to other parts of the body. The higher the score, the greater the likelihood that the cancer will spread. Eldridge 6 or lower: This indicates that the cancer cells look similar to normal prostate cells (well differentiated). Christine 7: This indicates that the cancer cells look somewhat similar to normal prostate cells (moderately differentiated). Eldridge 8, 9, or 10: This indicates that [...] stress of having cancer. General instructions Take nlze-xvn-lxbaumf and prescription medicines only as told by your health care provider. If you have to go to the hospital, notify your cancer specialist (oncologist). Keep all follow-up visits. This is important. Where to find more information [place] Cancer Society: www.cancer.org [place] Society of Clinical Oncology: www.cancer.net National Cancer Bern: www.cancer.gov Contact a health care provider if: [...] provider. Document Revised: 10/16/2021 Document Reviewed: 10/16/2021 [employer] Patient Education 2022 [employer]. Follow Up Care 08/10/2023 12:37:56 With:MICKY GARRISON, Cesia Hernández, URL Address: [facility] [address] , [place] [address]- [phone] When: Unknown Comments:f/u pending results of PSMA and bone scans [facility] 08-26-2023 Evaluation + Plan note Future Scheduled TestsPathology Tissue Exam 08/26/23Pathology Tissue Exam 08/26/23Pathology Tissue Exam 08/26/23Pathology Tissue Exam 08/26/23Pathology Tissue Exam 08/26/23Pathology Tissue Exam 08/26/23Pathology Tissue Exam 08/26/23Pathology Tissue Exam 08/26/23Pathology Tissue Exam 08/26/23Pathology Tissue Exam 08/26/23Pathology Tissue Exam 08/26/23Pathology Tissue Exam 08/26/23 [facility] Hospital Discharge instructions Patient Education 08/25/2023 [...] discomfort near your rectum, especially while sitting. Mckenney-colored urine due to small amounts of blood in your urine. A burning feeling while urinating. Blood in your stool (feces) or bleeding from your rectum. Blood in your semen. Follow these instructions at home: Medicines Take pegb-zuq-iekjgkk and prescription medicines only as told by [...] provider. Document Revised: 01/13/2022 Document Reviewed: 01/13/2022 [employer] Patient Education 2022 [employer]. Follow Up Care 08/17/2023 15:34:17 With:MICKY GARRISON, Cesia Hernández, URL Address: [facility] [address], [place] [address] [phone] When: Unknown Comments:review path on 09/11/23 [facility] [place] 08-10-2023 Note Chief Complaint Referral *Elevated PSA HPI Staff Evaluation requested by Dr Alek Fatima due to elevated PSA. Pt is a [...] male new pt referred by Dr. Alek Fatima for elevated PSA. 1. Elevated PSA (R97.20: [...] 0.4mg qd. Rx sent to [facility] in [place]. Discussed the medication side effects, and the [...] inguinal hernia Follow-up With When Contact Information Cesia WEEKS MD, URL [facility] [address], [place] [address] [phone] Additional Instructions: sched TRUS/bx Patient Education Transrectal Ultrasound-Guided Prostate Biopsy, Care After Transrectal Ultrasound-Guided Prostate Biopsy Radha Heredia, personally scribed for Dr. Weeks on 08/10/2023 12:29:36. . Documentation recorded by the [place] [facility]a (more content not included)... [facility] Comment on above: Result Comment: Elec tronically Signed By: Cesia WEEKS MD\.br\Date and Time Signed: 08/10/23 12:31 EST\.br\Electronically Co-Signed By: Radha Balderas\.maegan\Date and Time Co-Signed: 08/10/23 12:30 EST 08-10-2023 [...] discomfort near your rectum, especially while sitting. Mckenney-colored urine due to small amounts of blood in your urine. A burning feeling while urinating. Blood in your stool (feces) or bleeding from your rectum. Blood in your semen. Follow these instructions at home: Medicines Take gwkl-xzv-qqvycvf and prescription medicines only as told by [...] provider. Document Revised: 01/13/2022 Document Reviewed: 01/13/2022 [employer] Patient Education 2022 [employer]. 08/10/2023 12:27:58 Transrectal Ultrasound-Guided Prostate Biopsy Transrectal [...] including vitamins, herbs, eye drops, creams, and wlvx-aqc-etsqmoa medicines. Any problems you or family members [...] provider tells you to take them. Taking gvwp-eyl-iuyxsxv medicines, vitamins, herbs, and supplements. General instructions [...] provider. Document Revised: 01/13/2022 Document Reviewed: 01/13/2022 [employer] Patient Education 2022 [employer]. Follow Up Care 04/15/2023 08:43:29 With:MICKY GARRISON, Cesia Hernández, URL Address: [facility] [address], [place] [address]- [phone] When: Unknown Comments:sched TRUS/bx [facility] 01-02-2023 Note Continue statin [facility] 01-02-2023 Note Coronary artery dise ase is stable without concerning symptoms Continue GDMT continue risk factor modifications- heart healthy diet, regular exercise as tolerated and continue all medications. [facility] 01-02-2023 Note [facility]- II currently e uvolemic without exacerbation Continue GDMT- ASA, coreg, pravastatin, and lisinopril Diuretic therapy Monitor daily weights, I&O, fluid restriction 1.5-2L/day, renal function and electrolytes- [facility] 01-02-2023 Note B/P elevated today, but he states he rushed here today and typically his b/p is well controlled Continue all meds [facility] 01-02-2023 Note Patient here for 1 y [...] All other systems reviewed and are negative. [facility] 01-02-2023 Note [facility] ESS NOTE HPI: Sukhdeep Gamino is a 62 y.o. 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 Mixed hyper (more content not included)... [facility] 06-03-2021 History of Present illness Narrative Chief [...] advised to discontinue aspirin, NSAIDs, and specific herbals/qcpa-lta-keqsegy's preprocedure. Patient has been advised on preoperative [...] at acceptable cardiac risk based on current [place] College of Cardiology/[place] Heart Association (ACC/AHA) guidelines on zehra-operative cardiovascular evaluation and management of patient's undergoing non-cardiac surgery. Patient actively follows with organ pipe maker metal. Have requested correspondence with patient's organ pipe maker metal for additional risk stratification. Addition of requested [...] cardiac enzymes/EKGs as needed. Correspondence with patient's organ pipe maker metal to assure optimization for surgery and obtain [...] he has had 2 doses of the Pfizer COVID-19 vaccine BMI of 27.- patient will follow up with their primary care physician for weight loss management and lifestyle modification. Patient is at intermediate risk/probability for obstructive sleep apnea based on NASRIN screening questionnaire. Patient should be monitored via [place] standard postop NASRIN protocol least continuous pulse [...] to go right total hip replacement at [facility] scheduled for June 26, 2021. Internal Medicine has been consulted for preoperative medical risk stratification. Please see below regarding the status of active medical conditions and assessment and plan for preoperative medical risk stratification. MEDICAL ILLNESSES : 1. Osteoarthritis involving the right hip as above 2. Hypertension diagnosed in 2019 managed by his primary care physician and organ pipe maker metal 3. Chronic atrial fibrillation diagnosed in 2008. He reports undergoing previous cardioversion at the time of his initial diagnosis but reverted to A. Fib. He denies any history of stroke or atheroembolic phenomena. He is maintained on chronic warfarin 4. Coronary artery disease. Apparently noted to be nonobstructive based upon initial LHC in 2008. Patient states he underwent more recent updated LHC at [facility] in [facility]. He reports he was noted to have some mild disease but did not require any percutaneous intervention or stents. 5. Congestive heart failure. Patient was initially diagnosed with CHF in 2008 requiring hospitalization associate with underlying A. Fib. He now reports chronic systolic heart failure being treated by his organ pipe maker metal and maintained on Entresto and Carvedilol. He [...] transfusions No Previous Transfusion Related Reactions No Sabianist Reasons To Avoid Blood Transfusions No Personal [...] occasional PETERSON. Positive hypertension. Chronic A. fib. Lead Android Developer is Dr. Adriana Huff is most recently seen by nurse practitioner April 12, 2021. Patient reports he is undergone 2 previous heart caths one in 2008 and more recently April 2021. Per his description both showed nonobstructive CAD. He also reports undergoing echocardiogram back in 2008 and more recently November 2020 by his organ pipe maker metal. He believes his most recent ejection fraction [...] deficit Results : EKG INDEPENDENTLY INTERPRETED AT PAT : EKG ordered and read independently reveals atrial fibrillation with controlled rate heart rate 97. LAFB. I.e. abnormal ECG LABS ORDERED AT PAT : CBC & BMP ADDITIONAL RELEVANT RESULTS AND/OR RECORDS REVIEWED OR REQUESTED AT PAT : Cardiac clearance requested. Copies of most recent echocardiogram and heart cath requested A copy of this report has been made available to the referring physician in the hospital's EMR and/or by being faxed to the surgeon's office/surgery center. Yohan Johnson MD documented in this encounter [facility] Evaluation + Plan note Future Appointments Appointment Date:09/11/2023 10:30:00 AM Scheduled Provider:Cesia WEEKS MD Location:[facility] Appointment Type:URO Office Visit [facility] Evaluation note Diagnosis Pain Generalized pain [facility] noteNo assessment information availableJ.[facility]. [facility] Work Phone: Evaluation note* Diagnosis Screening for genitourinary condition Screening for other and unspecified genitourinary condition [facility] Malignant neoplasm of prostate (HCC)- Primary Malignant neoplasm of prostate [facility]* Diagnosis Congestive heart failure, unspecified HF chronicity, unspecified heart failure type (HCC)- Primary [facility] Diagnosis Pre-op testing- Primary Preoperative examination, unspecified Prostate cancer (HCC) Malignant neoplasm of prostate Prostate disease Unspecified disorder of prostate Malignant neoplasm of prostate (HCC) Malignant neoplasm of prostate [facility] Diagnosis Malignant neoplasm of prostate (HCC) Malignant neoplasm of prostate Malignant neoplasm of prostate (HCC) Malignant neoplasm of prostate [facility] Pre-op evaluation- Primary Preoperative examination, unspecified Malignant neoplasm of prostate (HCC) Malignant neoplasm of prostate Cardiomyopathy in diseases classified elsewhere (HCC) Chronic ischemic heart disease Chronic ischemic heart disease, unspecified Chronic systolic (congestive) heart failure (HCC) Essential hypertension Unspecified essential hypertension Mixed hyperlipidemia Paroxysmal atrial fibrillation (HCC) Atrial fibrillation Malignant neoplasm of prostate (HCC) Malignant neoplasm of prostate [facility] Screening for genitourinary condition Screening for other and unspecified genitourinary condition [facility] Diagnosis Prostate cancer (HCC)- Primary Malignant neoplasm of prostate [facility]* Diagnosis Prostate cancer (HCC)- Primary Malignant neoplasm of prostate PREETI (stress urinary incontinence), male Stress incontinence, male documented in this encounter 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 note* Diagnosis Pre-op evaluation- Primary Preoperative examination, unspecified Malignant neoplasm of prostate (HCC) Malignant neoplasm of prostate Cardiomyopathy in diseases classified elsewhere (HCC) Chronic ischemic heart disease Chronic ischemic heart disease, unspecified Chronic systolic (congestive) heart failure (HCC) Essential hypertension Unspecified essential hypertension Mixed hyperlipidemia Paroxysmal atrial fibrillation (HCC) Atrial fibrillation Encounter for follow-up surveillance of prostate cancer- Primary Unspecified follow-up examination History of prostate cancer Personal history of malignant neoplasm of prostate Rising PSA following treatment for malignant neoplasm of prostate PREETI (stress urinary incontinence), male Stress incontinence, male 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 [facility]* Diagnosis Pre-op evaluation- Primary Preoperative examination, unspecified Malignant neoplasm of prostate (HCC) Malignant neoplasm of prostate Cardiomyopathy in diseases classified elsewhere (HCC) Chronic ischemic heart disease Chronic ischemic heart disease, unspecified Chronic systolic (congestive) heart failure (HCC) Essential hypertension Unspecified essential hypertension Mixed hyperlipidemia Paroxysmal atrial fibrillation (HCC) Atrial fibrillation History of prostate cancer Personal history of malignant neoplasm of prostate Rising PSA following treatment for malignant neoplasm of prostate documented in this encounter [facility] note* Diagnosis Pre-op evaluation- Primary Preoperative examination, unspecified Malignant neoplasm of prostate (HCC) Malignant neoplasm of prostate Cardiomyopathy in diseases classified elsewhere (HCC) Chronic ischemic heart disease Chronic ischemic heart disease, unspecified Chronic systolic (congestive) heart failure (HCC) Essential hypertension Unspecified essential hypertension Mixed hyperlipidemia Paroxysmal atrial fibrillation (HCC) Atrial fibrillation Rising PSA following treatment for malignant neoplasm of prostate documented in this encounter [facility] note* Diagnosis Pre-op evaluation- Primary Preoperative examination, unspecified Malignant neoplasm of prostate (HCC) Malignant neoplasm of prostate Cardiomyopathy in diseases classified elsewhere (HCC) Chronic ischemic heart disease Chronic ischemic heart disease, unspecified Chronic systolic (congestive) heart failure (HCC) Essential hypertension Unspecified essential hypertension Mixed hyperlipidemia Paroxysmal atrial fibrillation (HCC) Atrial fibrillation Malignant neoplasm of prostate (HCC)- Primary Malignant neoplasm of prostate documented in this encounter [facility] note* Diagnosis Pre-op evaluation- Primary Preoperative examination, unspecified Malignant neoplasm of prostate (HCC) Malignant neoplasm of prostate Cardiomyopathy in diseases classified elsewhere (HCC) Chronic ischemic heart disease Chronic ischemic heart disease, unspecified Chronic systolic (congestive) heart failure (HCC) Essential hypertension Unspecified essential hypertension Mixed hyperlipidemia Paroxysmal atrial fibrillation (HCC) Atrial fibrillation History of prostate cancer- Primary Personal history of malignant neoplasm of prostate documented in this encounter [facility] note* Diagnosis Pre-op evaluation- Primary Preoperative examination, unspecified Malignant neoplasm of prostate (HCC) Malignant neoplasm of prostate Cardiomyopathy in diseases classified elsewhere (HCC) Chronic ischemic heart disease Chronic ischemic heart disease, unspecified Chronic systolic (congestive) heart failure (HCC) Essential hypertension Unspecified essential hypertension Mixed hyperlipidemia Paroxysmal atrial fibrillation (HCC) Atrial fibrillation Malignant neoplasm of prostate (HCC)- Primary Malignant neoplasm of prostate documented in this encounter [facility] note* Diagnosis Pre-op evaluation- Primary Preoperative examination, unspecified Malignant neoplasm of prostate (HCC) Malignant neoplasm of prostate Cardiomyopathy in diseases classified elsewhere (HCC) Chronic ischemic heart disease Chronic ischemic heart disease, unspecified Chronic systolic (congestive) heart failure (HCC) Essential hypertension Unspecified essential hypertension Mixed hyperlipidemia Paroxysmal atrial fibrillation (HCC) Atrial fibrillation Prostate cancer (HCC)- Primary Malignant neoplasm of prostate documented in this encounter [facility] course Narrative No data available for this section [facility] progress note No data available for this section [facility] reason for referral (narrative)* Diagnostic Procedure Only (Routine) - Authorized Specialty Diagnoses / Procedures Referred By Contac t Referred To Contact MOLECULAR & FUNCTIONAL IMAGING Diagnoses Malignant neoplasm of prostate (HCC) Procedures NM CARDIAC PERF STRESS/PHARM MYOCARDIAL SPECT MULTIPLE STUDIES Roxana Bah MD [address] [facility] [address] [place] [address] Molecular & Functional Imaging [address] [place] [address] Referral ID Status Reason Start Date Expiration Date Visits Requested Visits Authorized [id number] Authorized Auto-Generate d Referral Financial Clearance Required - OON Payor Patient Cleared - [employer] 10/07/2023 08/02/2024 1 1 [facility] for referral (narrative)* Outpatient Procedure (Routine) - Pending Review Specialty Diagnoses / Procedures [facility] To Contact [facility] [place] Diagnoses Congestive heart failure, unspecified HF chronicity, unspecified heart failure type (HCC) Procedures ECHO ECHO TTHRC R-T 2D W/WOM-MODE COMPL SPEC&COLR D Roxana Bah MD [address] [place] [address] [place] [address] Referral ID Status Reason Start Date Expiration Date Visits Requested Visits Authorized [id number] Pending Review Auto-Generat ed Referral 10/08/2023 10/07/2024 1 1 [facility] for referral (narrative)* Diagnostic Procedure Only (Routine) - Closed Specialty Diagnoses / Procedures [facility] Referred To Contact MOLECULAR & FUNCTIONAL IMAGING Diagnoses Malignant neoplasm of prostate (HCC) Procedures NM CARDIAC PERF STRESS/PHARM MYOCARDIAL SPECT MULTIPLE STUDIES Roxana Bah MD [address] [place] [address] Molecular & Functional Imaging [address] [place] [address] Referral ID Status Reason Start Date Expiration Date V isits Requested Visits Authorized [id number] Closed Auto-Generated Referral Financial Clearance Required - OON Payor Patient Cleared - [employer] 10/07/2023 08/02/2024 1 1 T [facility] for referral (narrative)* Diagnostic Procedure Only (Routine) - Authorized Specialty Diagnoses / Procedures [facility] Referred To Contact MOLECULAR & FUNCTIONAL IMAGING Diagnoses Rising PSA following treatment for malignant neoplasm of prostate Procedures NM PET/CT PROSTATE WHOLE BODY IMAGING PET IMAGING CT ATTENUATION SKULL BASE MID-THIGH Mich Kamraa MD [address] [place] [address] [place] [address] Molecular & Functional Imaging [address] [place], [place] [id number] Referral ID Status Reason Start Date Expiration Date Visits Requested Visits Authorized [id number] Authorized Auto-Generat ed Referral 04/28/2024 05/28/2025 1 1 [facility] for referral (narrative)* Diagnostic Procedure Only (Routine) - New Request Specialty Diagnoses / Procedures Referred By Blas villarreal Referred To Contact XR IMAGING Diagnoses Prostate cancer (HCC) Procedures XR FACIAL BONES 3V AP/LAT/WEEKS RADEX FACIAL BONES COMPLETE MINIMUM 3 VIEWS Mich Kamara MD [address] [place] [address] [place] [address] Xr Imaging [place] [address] Referral ID Status Reason Start Date Expiration Date Visits Requested Visits Authorized [id number] New Request Auto-Generat ed Referral 06/22/2025 1 1 [facility] for visit Narrative* Auth/Cert Specialty Diagnoses / Procedures Referred By Blas villarreal Referred To Contact Diagnoses Unilateral primary osteoarthritis, right hip RIGHT HIP PAIN Procedures DC ARTHROPLASTY ACETABULAR AND PROXIMAL FEMORAL PROSTHETIC REPLACEMENT (TOTAL HIP ARTHROPLASTY) WITH OR WITHOUT AUTOGRAFT OR ALLOGRAFT ARTHROPLASTY HIP TOTAL RIGHT ANTERIOR Caryl Acevedo MD [address] [place] [address] Brice Goldstein [place] [address] [place] [address] Referral ID Status Reason Start Date Expiration Date Visits Re quested Visits Authorized [id number] 1 1 [facility] for visit Narrative* Diagnostic Procedure Only (Routine) - Closed Specialty Diagnoses / Procedures Referred By Blas villarreal Referred To Contact MOLECULAR & FUNCTIONAL IMAGING Diagnoses Malignant neoplasm of prostate (HCC) Procedures NM CARDIAC PERF STRESS/PHARM MYOCARDIAL SPECT MULTIPLE STUDIES Roxana Bah MD [address] [facility] [address] [place] [address] Molecular & Functional Imaging [address] [place] [address] Referral ID Status Reason Start Date Expiration Date V isits Requested Visits Authorized [id number] Closed Auto-Generated Referral Financial Clearance Required - OON Payor Patient Cleared - [employer] [facility] 10/07/2023 08/02/2024 1 1 [facility] Summary Purpose Family History No Family History [...] FoundDocuments on File Type Date Recorded 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 Latest Code Status on File Code Status [...] Advance Directives No March 28, 2020 10:21am Chief Complaint and Reason for Visit Chief Complaint elevated PSA and BPH with urinary obstruction C61 Reason for Referral Specialty Diagnoses / Procedures Referred By Contac t Referred To Contact MR IMAGING Diagnoses History of prostate cancer Procedures MRI CERVICAL SPINE WO/W IVCON MRI SPINAL CANAL CERVICAL W/O & W/CONTR Mich Moser MD [address] [place] [address] [place] [address] [place] [address] Referral ID Status Reason Start Date Expiration Date Visits Requested Visits Authorized [id number] New Request Auto-Generat ed Referral 4 06/18/2025 1 1 Specialty Diagnoses / Procedures Referred By Contac t Referred To Contact Diagnoses History of prostate cancer Procedures CT SIM PLANNING RADIATION ONCOLOGY THER RAD SIMULAJ-AIDED FIELD SETTING COMPLEX Mich Kamara MD [address] [place] [address] [place] [address] Referral ID Status Reason Start Date Expiration Date Visits Requested Visits Authorized [id number] New Request PCP Requested Referral 08/17/2024 1 1 Specialty Diagnoses / Procedures Referred By Contac t Referred To Contact Radiation Oncology Diagnoses History of prostate cancer Rising PSA following treatment for malignant neoplasm of prostate Procedures RAD/ONC CONSULT OFFICE/OUTPATIENT NEW HIGH MDM 60 MINUTES Katrina Warner APRN.NURSING HOME PHYSICIAN [address] [place] [address] Referral ID Status Reason Start Date Expiration Date Visits Requested Visits Authorized [id number] Authorized PCP Requested Referral 04/07/2024 04/07/2025 1 1 Specialty Diagnoses / Procedures Referred By Conttristen t Referred To Contact [facility] Diagnoses PREETI (stress urinary incontinence), male Procedures CONSULT TO PHYSICAL THERAPY PHYSICAL THERAPY EVALUATION HIGH COMPLEX 45 MINS Katrina Warner APRN.NURSING HOME PHYSICIAN [address] [place] [address] [facility] [place] [address] [place] [id number] Referral ID Status Reason Start Date Expiration Date Visits Requested Visits Authorized [id number] Pending Review PCP Requested Referral Auto-Generate d Referral 12/30/2023 12/29/2024 99 99 Additional Source Comments (unrecognized sect ion and content) No Status Records FoundNo Status Records FoundNo Status Records FoundNo Status Records FoundNo Status Records FoundNo Status Records FoundNo Status Records FoundNo Status Records Found INFORMATION SOURCE (unrecogn ized section and content) DATE CREATED AUTHOR 02/07/2021 [facility] DATE CREATED AUTHOR AUTHOR'S ORGANIZ ATION 06/28/2021 [facility] DATE CREATED AUTHOR AUTHOR'S ORGANIZ ATION 05/29/2022 [facility] DATE CREATED AUTHOR AUTHOR'S ORGANIZ ATION 09/17/2023 [facility] DATE CREATED AUTHOR AUTHOR'S ORGANIZ ATION 09/18/2023 [facility] DATE CREATED AUTHOR AUTHOR'S ORGANIZ ATION 12/29/2023 [facility] DATE CREATED AUTHOR AUTHOR'S ORGANIZ ATION 04/23/2024 [facility] dical Specialists [facility] DATE CREATED AUTHOR AUTHOR'S ORGANIZ ATION 05/24/2024 [facility] Reason for Visit (unrecogniz ed section and content) Reason Comments Pre-op Exam Reason Comments Nm Pet Request Reason Comments Pre-Op Teaching Specialty Diagnoses / Procedures Referred By Contac t Referred To Contact ANESTHESIOLOGY Diagnoses Malignant neoplasm of prostate (HCC) Procedures REFER TO PACC - PRE ANESTHESIA CONSULTATION CLINIC OFFICE/OUTPATIENT [facility] 60 MINUTES Roxana Bah MD [address] [place] [address] [facility] [address] [place] [address] Referral ID Status Reason Start Date Expiration Date V isits Requested Visits Authorized [id number] Closed PCP Requested Referral Financial Clearance Required - OON Payor Patient Cleared - [employer] [facility] 10/06/2023 10/04/2024 1 1 Specialty Diagnoses / Procedures Referred By Contac t Referred To Contact ANESTHESIOLOGY Diagnoses Malignant neoplasm of prostate (HCC) Procedures REFER TO PACC - PRE ANESTHESIA CONSULTATION CLINIC OFFICE/OUTPATIENT [facility] 60 MINUTES Roxana Bah MD [address] [place] [address] [facility] [address] [place] [address] Specialty Diagnoses / Procedures Referred By Contac t Referred To Contact [facility] Diagnoses Prostate Cancer Procedures NEW PATIENT VISIT Cesia Weeks MD [address] [place] [address] [facility] [address] [place] [address] Referral ID Status Reason Start Date Expiration Date V isits Requested Visits Authorized [id number] Closed Financial Clearance Required - OON Payor Patient Cleared - [employer] 09/18/2023 12/17/2023 1 1 Reason Comments Returning Patient's Call Reason Comments Follow Up Phone Call Reason Comments Post-Op Visit Reason Comments Follow Up Reason Comments Patient Education Reason Comments Consult Specialty Diagnoses / Procedures Referred By Contac t Referred To Contact Radiation Oncology Diagnoses History of prostate cancer Rising PSA following treatment for malignant neoplasm of prostate Procedures RAD/ONC CONSULT OFFICE/OUTPATIENT NEW HIGH MDM 60 MINUTES Katrina Warner APRN.CNP [address] [place] [address] Referral ID Status Reason Start Date Expiration Date V isits Requested Visits Authorized [id number] Closed PCP Requested Referral 04/07/2024 04/07/2025 1 1 Reason Comments Orders Reason Comments Radiology NM Specialty Diagnoses / Procedures Referred By Contac t Referred To Contact MOLECULAR & FUNCTIONAL IMAGING Diagnoses Rising PSA following treatment for malignant neoplasm of prostate Procedures NM PET/CT PROSTATE WHOLE BODY IMAGING PET IMAGING CT ATTENUATION SKULL BASE MID-THIGH Mich Kamara MD [address] [place] [address] [place] [address] Molecular & Functional Imaging [address] [place] [id number] Referral ID Status Reason Start Date Expiration Date V isits Requested Visits Authorized [id number] Closed Auto-Generate d Referral 04/28/2024 05/28/2025 1 1 Reason Onset Date Comments Refill Request 05/17/2024 Reason Comments Prostate Cancer Eligard NOT Given Reason Onset Date Comments Simulation Request Form 05/19/2024 Prostate Cancer Reason Comments Orders Care Teams (unrecognized sec tion and content) Medical Device Sales Representative Relationship Specialty Start Date End Date Alek Fatima MD [address] [place] [address] PCP - General Family Medicine 06/04/21 Team Status: Inactive Member Role Status Dates Cesia Weeks MD Attending Provider Active St art: August 25, 2023 End: August 25, 2023 Team Status: Active Member Role Status Dates Alek Fatima MD Primary Care Provider Active Team Status: Inactive Member Role Status Dates Cesia Weeks MD Attending Provider Active St art: September 14, 2023 End: September 14, 2023 Alek Fatima MD Primary Care Provider Active Start: September 14, 2023 End: September 14, 2023 Medical Device Sales Representative Relationship Specialty Start Date End Date Alek Fatima MD [address] [facility] [place] [address] PCP - General Family Medicine 10/14/23 Medical Device Sales Representative Relationship Specialty Start Date End Date Alek Fatima MD [address] [place] [address] PCP - General Family Medicine 10/14/23 Medical Device Sales Representative Relationship Specialty Start Date End Date Alek Fatima MD [address] [place] [address] PCP - General Family Medicine 10/14/23 Medical Device Sales Representative Relationship Specialty Start Date End Date Alek Fatima MD [address] [place] [address] PCP - General Family Medicine 10/14/23 Medical Device Sales Representative Relationship Specialty Start Date End Date Alek Fatima MD [address] [place] [address] PCP - General Family Medicine 10/14/23 Medical Device Sales Representative Relationship Specialty Start Date End Date Alek Fatima MD [address] [place] [address] PCP - General Family Medicine 10/14/23 Medical Device Sales Representative Relationship Specialty Start Date End Date Alek Fatima MD [address] [place] [address] PCP - General Family Medicine 10/14/23 Medical Device Sales Representative Relationship Specialty Start Date End Date Alek Fatima MD [address] [place] [address] PCP - General Family Medicine 10/14/23 Medical Device Sales Representative Relationship Specialty Start Date End Date Alek Fatima MD [address] [place] [address] PCP - General Family Medicine 10/14/23 Medical Device Sales Representative Relationship Specialty Start Date End Date Alek Fatima MD [address] [place] [address] PCP - General Family Medicine 10/14/23 Medical Device Sales Representative Relationship Specialty Start Date End Date Alek Fatima MD [address] [place] [address] PCP - General Family Medicine 10/14/23 Medical Device Sales Representative Relationship Specialty Start Date End Date Alek Fatima MD [address] [place] [address] PCP - General Family Medicine 10/14/23 Medical Device Sales Representative Relationship Specialty Start Date End Date Alek Fatima MD [address] [place] [address] PCP - General Family Medicine 10/14/23 Medical Device Sales Representative Relationship Specialty Start Date End Date Alek Fatima MD [address] [place] [address] PCP - General Family Medicine 10/14/23 Medical Device Sales Representative Relationship Specialty Start Date End Date Alek Fatima MD [address] [place] [address] PCP - General Family Medicine 10/14/23 Medical Device Sales Representative Relationship Specialty Start Date End Date Alek Fatima MD [address] [facility] [place] [address] PCP - General Family Medicine 10/14/23 Medical Device Sales Representative Relationship Specialty Start Date End Date Alek Fatima MD [address] [place] [address] PCP - General Family Medicine 10/14/23 Medical Device Sales Representative Relationship Specialty Start Date End Date Alek Fatima MD [address] [place] [address] PCP - General Family Medicine 10/14/23 Medical Device Sales Representative Relationship Specialty Start Date End Date Alek Fatima MD [address] [place] [address] PCP - General Family Medicine 10/14/23 Goals (unrecognized section and content) Goals may be documented in a n alternate section Source Comments (unrecognize d section and content) In the event this informatio n is protected by the Federal Confidentiality of Alcohol and Drug Abuse Patient Records regulations: The Federal rules restrict any use of the information to criminally investigate or prosecute any alcohol or drug abuse patient.[facility] Healthcare[facility] the event this information is protected by the Federal Confidentiality of Alcohol and Drug Abuse Patient Records regulations: The Federal rules restrict any use of the information to criminally investigate or prosecute any alcohol or drug abuse patient.[facility] HealthcareIn the event this information is protected by the Federal Confidentiality of Alcohol and Drug Abuse Patient Records regulations: The Federal rules restrict any use of the information to criminally investigate or prosecute any alcohol or drug abuse patient.[facility] HealthcareIn the event this information is protected by the Federal Confidentiality of Alcohol and Drug Abuse Patient Records regulations: The Federal rules restrict any use of the information to criminally investigate or prosecute any alcohol or drug abuse patient.[facility] HealthcareIn the event this information is protected by the Federal Confidentiality of Alcohol and Drug Abuse Patient Records regulations: The Federal rules restrict any use of the information to criminally investigate or prosecute any alcohol or drug abuse patient.[facility] HealthcareIn the event this information is protected by the Federal Confidentiality of Alcohol and Drug Abuse Patient Records regulations: The Federal rules restrict any use of the information to criminally investigate or prosecute any alcohol or drug abuse patient.[facility] HealthcareIn the event this information is protected by the Federal Confidentiality of Alcohol and Drug Abuse Patient Records regulations: The Federal rules restrict any use of the information to criminally investigate or prosecute any alcohol or drug abuse patient.[facility] HealthcareIn the event this information is protected by the Federal Confidentiality of Alcohol and Drug Abuse Patient Records regulations: The Federal rules restrict any use of the information to criminally investigate or prosecute any alcohol or drug abuse patient.[facility] HealthcareIn the event this information is protected by the Federal Confidentiality of Alcohol and Drug Abuse Patient Records regulations: The Federal rules restrict any use of the information to criminally investigate or prosecute any alcohol or drug abuse patient.[facility] HealthcareIn the event this information is protected by the Federal Confidentiality of Alcohol and Drug Abuse Patient Records regulations: The Federal rules restrict any use of the information to criminally investigate or prosecute any alcohol or drug abuse patient.[facility] HealthcareIn the event this information is protected by the Federal Confidentiality of Alcohol and Drug Abuse Patient Records regulations: The Federal rules restrict any use of the information to criminally investigate or prosecute any alcohol or drug abuse patient.[facility] HealthcareIn the event this information is protected by the Federal Confidentiality of Alcohol and Drug Abuse Patient Records regulations: The Federal rules restrict any use of the information to criminally investigate or prosecute any alcohol or drug abuse patient.[facility] HealthcareIn the event this information is protected by the Federal Confidentiality of Alcohol and Drug Abuse Patient Records regulations: The Federal rules restrict any use of the information to criminally investigate or prosecute any alcohol or drug abuse patient.[facility] HealthcareIn the event this information is protected by the Federal Confidentiality of Alcohol and Drug Abuse Patient Records regulations: The Federal rules restrict any use of the information to criminally investigate or prosecute any alcohol or drug abuse patient.[facility] HealthcareIn the event this information is protected by the Federal Confidentiality of Alcohol and Drug Abuse Patient Records regulations: The Federal rules restrict any use of the information to criminally investigate or prosecute any alcohol or drug abuse patient.[facility] HealthcareIn the event this information is protected by the Federal Confidentiality of Alcohol and Drug Abuse Patient Records regulations: The Federal rules restrict any use of the information to criminally investigate or prosecute any alcohol or drug abuse patient.[facility] HealthcareIn the event this information is protected by the Federal Confidentiality of Alcohol and Drug Abuse Patient Records regulations: The Federal rules restrict any use of the information to criminally investigate or prosecute any alcohol or drug abuse patient.[facility] HealthcareIn the event this information is protected by the Federal Confidentiality of Alcohol and Drug Abuse Patient Records regulations: The Federal rules restrict any use of the information to criminally investigate or prosecute any alcohol or drug abuse patient.[facility] HealthcareIn the event this information is protected by the Federal Confidentiality of Alcohol and Drug Abuse Patient Records regulations: The Federal rules restrict any use of the information to criminally investigate or prosecute any alcohol or drug abuse patient.[facility] HealthcareIn the event this information is protected by the Federal Confidentiality of Alcohol and Drug Abuse Patient Records regulations: The Federal rules restrict any use of the information to criminally investigate or prosecute any alcohol or drug abuse patient.[facility] HealthcareIn the event this information is protected by the Federal Confidentiality of Alcohol and Drug Abuse Patient Records regulations: The Federal rules restrict any use of the information to criminally investigate or prosecute any alcohol or drug abuse patient.[facility] HealthcareIn the event this information is protected by the Federal Confidentiality of Alcohol and Drug Abuse Patient Records regulations: The Federal rules restrict any use of the information to criminally investigate or prosecute any alcohol or drug abuse patient.[facility] HealthcareIn the event this information is protected by the Federal Confidentiality of Alcohol and Drug Abuse Patient Records regulations: The Federal rules restrict any use of the information to criminally investigate or prosecute any alcohol or drug abuse patient.[facility] HealthcareIn the event this information is protected by the Federal Confidentiality of Alcohol and Drug Abuse Patient Records regulations: The Federal rules restrict any use of the information to criminally investigate or prosecute any alcohol or drug abuse patient.[facility] HealthcareIn the event this information is protected by the Federal Confidentiality of Alcohol and Drug Abuse Patient Records regulations: The Federal rules restrict any use of the information to criminally investigate or prosecute any alcohol or drug abuse patient.[facility] HealthcareIn the event this information is protected by the Federal Confidentiality of Alcohol and Drug Abuse Patient Records regulations: The Federal rules restrict any use of the information to criminally investigate or prosecute any alcohol or drug abuse patient.[facility] HealthcareIn the event this information is protected by the Federal Confidentiality of Alcohol and Drug Abuse Patient Records regulations: The Federal rules restrict any use of the information to criminally investigate or prosecute any alcohol or drug abuse patient.[facility] HealthcareIn the event this information is protected by the Federal Confidentiality of Alcohol and Drug Abuse Patient Records regulations: The Federal rules restrict any use of the information to criminally investigate or prosecute any alcohol or drug abuse patient.[facility] HealthcareIn the event this information is protected by the Federal Confidentiality of Alcohol and Drug Abuse Patient Records regulations: The Federal rules restrict any use of the information to criminally investigate or prosecute any alcohol or drug abuse patient.[facility] HealthcareIn the event this information is protected by the Federal Confidentiality of Alcohol and Drug Abuse Patient Records regulations: The Federal rules restrict any use of the information to criminally investigate or prosecute any alcohol or drug abuse patient.[facility] FOR RECORDS PERTAINING TO PATIENTS WHO ARE [...] BE BASED ON THE PRIMARY CLINICAL RECORDS. [facility] provides no warranty or guarantee of the accuracy or completeness of information in this document.
[2024-05-26 08:39] LABS: INR 3.04; Prothrombin Time 28.9 sec (9.0-11.6)
--- NOTE | 2024-05-26 14:04 | XR_ITS ---
The [address] [address] Patient Name: SUKHDEEP POLANCO MRN: [id number] date: 1960 Sex: M Assigned Patient Location: LAB Current Patient Location: LAB Accession/Order Number: [id number] Exam Date: 05/26/2024 14:08 Report Date: 05/26/2024 14:27 At the request of: ALEK FATIMA Procedure: XR foreign body eye BULMARO EXAMINATION: XR foreign body eye BULMARO HISTORY: Foreign Body Eye COMPARISON: No relevant comparison available. FINDINGS: ORBITS: Negative for a metallic foreign body. OTHER: Negative. XR/XR foreign body eye BULMARO IMPRESSION: 1. No metallic foreign body within the orbits. Electronically authenticated by: ALL RICARDO Date: 05/26/2024 14:27
--- NOTE | 2024-05-26 14:04 | MR_ITS ---
[address] [address] Patient Name: SUKHDEEP POLANCO MRN: [id number] date: 1960 Sex: M Assigned Patient Location: LAB Current Patient Location: Accession/Order Number: [id number] Exam Date: 05/26/2024 15:00 Report Date: 05/28/2024 15:32 At the request of: ALEK FATIMA Procedure: MR cervical spine wo/w con EXAM: MR cervical spine wo/w con REASON FOR EXAM: History Of Prostate Cancer. TECHNIQUE: Multiplanar, multisequence imaging of the cervical spine was performed before and after the uneventful intravenous administration of gadolinium contrast COMPARISON: Nuclear medicine study 09/02/2023. FINDINGS: Study degraded by motion. Limited evaluation the posterior fossa is unremarkable. The visualized spinal cord demonstrates grossly normal caliber and signal. Normal cervical lordosis. Vertebral body heights and facet alignments are maintained. No acute or aggressive osseous abnormality identified. Modic type changes are present at the C5-C6 level. Limited evaluation of the paravertebral soft tissues is unremarkable. C2-C3: No focal disc herniation identified. No spinal canal or neural foraminal stenosis. C3-C4: Broad-based disc bulge with mild spinal canal stenosis. Moderate to severe bilateral neural foraminal stenosis secondary to disc osteophyte complex, uncovertebral degeneration and facet arthropathy. C4-C5: Broad-based disc bulge with [id number] spinal canal stenosis. Moderate to severe bilateral neural foraminal stenosis secondary to disc osteophyte complex, uncovertebral degeneration and facet arthropathy. C5-C6: Broad-based disc bulge with moderate spinal canal stenosis. Severe bilateral neural foraminal stenosis secondary to disc osteophyte complex, uncovertebral degeneration and facet arthropathy. C6-C7: Broad-based disc bulge with mild spinal canal stenosis. Moderate to severe bilateral neural foraminal stenosis, right greater than left secondary to disc osteophyte complex, uncovertebral degeneration and facet arthropathy. C7-T1: No focal disc herniation identified. No spinal canal stenosis. Mild bilateral neural foraminal stenosis, left greater than right secondary to disc osteophyte complex, uncovertebral degeneration and facet arthropathy. MR/MR cervical spine wo/w con IMPRESSION: 1. Study degraded by motion. 2. No evidence of osseous metastatic disease identified. 3. Moderate to severe multilevel degenerative disc the facet arthropathy, most significant at the C5-C6 level as described above. Electronically authenticated by: JIM JUNG Date: 05/28/2024 15:32
== END 2024-05-26 08:05 | disposition home or self-care (01) ==
LOC: LAB 08:06
PROVIDERS: PCP Family Medicine; Visit Provider Family Medicine
DX: M50.30 Other cervical disc degeneration, unspecified cervical region (principal); C61 Malignant neoplasm of prostate; Z51.81 Encounter for therapeutic drug level monitoring
CPT/HCPCS: 36415; 70030; 72156; 82565; 85610; A9575

== ENCOUNTER 2024-05-26 11:11 | Outpatient (OUT) | payer MEDICARE, OTHER, SELFPAY ==
--- OUTSIDE RECORDS SUMMARY | 2024-05-26 08:15 | XMS_ITS | CCD ---
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 Role Phone ELTAHAWY, EHAB A Admitting Unavailable ELTANENITA, EHAB A Attending Unavailable ALEK FATIMA Primary Care Unavailable ALEK FATIMA Referring Unavailable Unavailable Primary Care Provider Alek Masterson MD Primary Care Provider [phone] ALEK FATIMA Primary Care Unavailable CARYL ACEVEDO [...] Consulting Unavailable Alek Fatima Primary Care Physician [phone] MD Cesia Weeks Attending Provider Unavailable Primary Care Provider UnavailMD Alek Hardwick Primary Care Provider [phone] Cesia WEEKS Attending Unavailable Cesia WEEKS Attending Unavailable Cesia WEEKS Attending Unavailable Alek Fatima Referring Unavailable Cesia Weeks Admitting Unavailable Cesia Weeks Attending Unavailable Cesia Weeks Attending Unavailable Alek Fatima Primary Care Unavailable Cesia Weeks Admsheila Unavailable Alek Fatima MD Primary Care Provider [phone] AIMEE CLEMENT Attending Unavailable JANELL HUFFAB Attending Unavailable Alek Fatima MD Primary Care Provider [phone] VIRAL HERNANDEZ Attending Unavailable VIRAL HERNANDEZ [...] Unavailable HOY, ALEK M Primary Care Unavailable ROAXNA BAH Referring Unavailable HOY, ALEK M Primary Care Unavailable ROXANA BAH Referring Unavailable HOY, ALEK M Primary Care Unavailable WARMINSKI, KATRNIA Attending Unavailable HOY, ALEK M Primary Care Unavailable HOY, ALEK M Primary Care Unavailable Allergies Allergy Classification Reported Allergen(s) Allergy Type Date of Onset Reaction(s) Facility Unclassified (1 source) 24266,00; Translations: [15081,00] Propensity to adverse reactions (disorder) 9 [facility] Repository (1 source) No Known Medication Allergies; Translations: [No Known Medication Allergies] Propensity to adverse reactions (disorder) [facility] Repository (20 sources) Ciprofloxacin; Translations: [CIPROFLOXACIN] Drug Allergy 4 [facility] Work Phone: Medications Current Medications Medication Drug [...] on above: Take 2 tablets by mo [facility] every 8 hours as needed for pain [...] day(s), # 14 tab(s), Refills(s) 0, Pharmacy: [facility], 178, cm, 08/10/23 11:30:00 EST, [...] DIRECTED 07/12/2023 Active take 1 capsule by [facility] at bedtime, then take 1 capsule by mouth every twenty-four hours dilTIAZem CD (CARDIZEM CD) 120 mg 24 hr capsule Take 120 mg by mouth at bedtime. 0 Suspended Comment on above: TAKE 1 CAPSULE BY [facility] ONCE DAILY DIRECTED DilTIAZem (Eqv-Cardizem CD) 120 mg/24 hours oral capsule, extended release (3 sources) Start: 08-10-2023 DilTIAZem (Eqv-Cardizem CD) 120 mg/24 hours oral capsule, extended release Refills(s) 0 Start Date: 08/10/23 Status: Ordered fluticasone propionate 0.05 mg/actuat metered dose nasal spray (20 sources) Corticosteroid fluticasone (GRETTA NASE) 50 mcg/actuation nasal spray 1 [place]. Active take 1 spray(s) nasal route twic e daily fluticasone propionate (Flonase Allergy Relief) 50 mcg/actuation nasal spray Administer 1 spray into each nostril 2 (two) times a day. Shake gently. Before first use, prime pump. After use, clean tip and replace cap. 0 Suspended Comment on above: 1 [place]. iv contrast (will be provided with radiology [...] Comment on above: Take 1 capsule by [facility] two times a day. docusate sodium 100 mg oral capsule (6 sources) Start: End: take 1 capsule by mouth twice daily docusate sodium (COLACE) 100 mg capsule Take 1 capsule by mouth two times a day. 60 capsule 0 11/06/2023 11/18/2023 Discontinued (Course of therapy completed) Comment on above: Take 1 capsule by [facility] two times a day. 24 hr oxybutynin [...] Comment on above: Take 1 tablet by [facility] once daily as needed (bladder spasms) for [...] completed) Start: 08-10-2023 take 1 capsule by [facility] once daily tamsulosin 0.4 mg Cap 0.4 mg = 1 cap(s), Oral, Daily, # 30 cap(s), Refills(s) 11, Pharmacy: [facility], 178, cm, 08/10/23 11:30:00 EST, [...] Test Name Value Interpretation Reference Range Facility [facility] 05-23-2024 [facility] Telephone (RADTSA) STEVENSONSUKHDEEP ([id number]) 1960 M Date Time Provider Department 05/23/24 ROXY ARMSTRONG During your visit today, we recorded the following information about you: Roxy Armstrong RN 05/23/2024 1:41 PM Signed Call received from [facility]- 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 They need to get an order for XRay ORbits to make sure he does not have any metal. Please sign and we will fax to [facility]. BOY Herring Angela, RN 05/23/2024 3:14 PM Signed Order faxed to [facility]. Roxy Armstrong RN Allergies As of Date: 05/23/2024 Noted Allergy Reaction CIPROFLOXACIN 11/12/2023 4 - Hives Date Reviewed: 04/28/2024 Reviewed by: Divina Braswell LPN - Fully Assessed Reason for Visit: Orders [681] Primary Visit Diagnosis:Prostate cancer (HCC) [C61] Order(s):XR FACIAL BONES 3V AP/LAT/WEEKS [[id number]] Order #: [id number] FUTURE Prescriptions as of 05/23/2024 - Tadalafil [...] fluticasone (FLONASE) 50 mcg/actuation nasal spray 1 [place]. Problem List As Of Date 05/23/2024 Noted [...] Encounter Status:Closed by [facility] Telephone (RADKESHAA) SUKHDEEP GAMINO ([id number]) 1960 M Date Time Provider Department 05/20/24 [place] KAMARA During your visit today, we recorded the following information about you: Roxy Armstrong RN 05/20/2024 1:17 PM Signed Please sign pended Creat for [facility]. BOY Herring Angela, RN 05/23/2024 8:48 AM Signed Order Signed. Roxy Armstrong RN Allergies As of Date: 05/20/2024 Noted Allergy Reaction CIPROFLOXACIN 11/12/2023 4 - Hives Date Reviewed: 04/28/2024 Reviewed by: Divina Braswell LPN - Fully Assessed Primary Visit Diagnosis:Malignant neoplasm of prostate (HCC) [C61] Order(s):CREATININE BLD [SQCRET] Order #: [id number] FUTURE Prescriptions as of 05/23/2024 - Tadalafil [...] fluticasone (FLONASE) 50 mcg/actuation nasal spray 1 [place]. Problem List As Of Date 05/20/2024 Noted [...] Encounter Status:Closed by ROXY ARMSTRONG on 05/23/24 [facility] CNOVon 05-19-2024 CNOV Office Visit (RADTSA ) SUKHDEEP GAMINO ([id number]) 1960 Date Time Provider Department 05/19/24 11:45 [...] of prostate (HCC) [C61] Order(s):TREATMENT PARAMETER-NOT NEEDED [[id number]] Order #: [id number]: 1 [facility] NURSING COMMUNICATION [[id number]] Order #: [id number]: 1 [facility] NURSING COMMUNICATION [[id number]] Order #: [id number]: 1 STANDING leuprolide 45 mg injection (ELIGARD)Disp: Rfl: NaCl 0.9% iv infusionDisp: Rfl: diphenhydrAMINE 50 mg injection (BENADRYL)Disp: Rfl: hydrocortisone sodium succinate 100 mg injection (Solu-CORTEF)Disp: Rfl: EPINEPHrine 0.3 mg injection - ANAPHYLAXIS (IM only)Disp: Rfl: BCN NURSING COMMUNICATION [[id number]] Order #: [id number]: 1 STANDING [facility] NURSING COMMUNICATION [[id number]] Order #: [id number]: 1 STANDING sodium chloride 0.9 % (flush) 10-20 mL (BD POSIFLUSH)Disp: Rfl: sodium chloride 0.9 % (flush) 10-20 mL (BD POSIFLUSH)Disp: Rfl: N NURSING COMMUNICATION [[id number]] Order #: [id number]: 1 STANDING [facility] NURSING COMMUNICATION [[id number]] Order #: [id number]: 1 STANDING Prescriptions as of 05/19/2024 - [...] fluticasone (FLONASE) 50 mcg/actuation nasal spray 1 [place]. Facility-Administered Medications as of 05/19/2024 - leuprolide [...] Encounter Status:Closed by ROXY ARMSTRONG on 05/19/24 [facility] CNOV Office Visit (RADTSA ) SUKHDEEP GAMINO ([id number]) 1960 M Date Time Provider Department 05/19/24 [...] with prostate adenocarcinoma, initial PSA 7.9, biopsy [place] score 4 + 5 = 9 (grade [...] any questions regarding this interpretation, please call [phone]. If you are unable to reach us at the number above, please feel free to contact [facility] at [phone]. Results-Findings * * *Final Report* * * [...] * Prostate Cancer Grade: Grade Group 5 ([place] score 4 + 5) * PSA: 0.18 [...] avid mass. (more content not included)... Normal [facility] PET/CT PROSTATE WBon 10- IN PET/CT PROSTATE WB * * *Final Report* [...] Scattered non- (more content not included)... Normal [facility] CNOVon 04-28-2024 CNOV Office Visit (RADTSA ) SUKHDEEP GAMINO ([id number]) 1960 M Date Time Provider Department 04/28/24 [...] ultrasound-guided biopsy on 08/25/2023, with finding of [place] grade group 5 (4+5) from the left [...] using tad (more content not included)... [facility] Telephone (DAVIDAP) SUKHDEEP GAMINO ([id number]) 1960 M Date Time Provider Department 04/28/24 [place] KAMARA During your visit today, we recorded the following information about you: Misty Sher HUC 04/28/2024 11:19 AM Signed This form is used for MAIN CAMPUS APPOINTMENTS ONLY. Is this request for a [place] PET scan appointment? Yes: Veneer Trimmer: OSWALDO Ramirez Requesting Person (Last Name, First Name): Sherif Area Code + Phone/Pager: [phone] Who do we call to schedule this appointment? Other Contact: [facility] PET in [place], Route to [facility] to schedule. 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 Will the patient need anesthesia: No Primary Insurance: Medicare B Effective Date: 04-26-24 Date of Initial PET: N/A Cancer Type: Prostate Cancer Date of Subsequent PET scan: Pend scheduling S1 ABN Required: No Diagnosis: Rising PSA following treatment for malignant neoplasm of prostate [R97.21] Initial/Subsequent: Subsequent Pathology: 11-05-23 Prostate, radical prostatectomy: - Prostatic adenocarcinoma, [place] score 4+4=8 Grade Group 4 Labs: 04-26-24 [...] F-18 flotufolastat,18F flotufolastat [place] GA68 [facility] PET 28349/LOCAMETZ (Gallium GA-68 Gozetotide) (6 mCi) A9800 - [place] (Flotufolastat F18) (8mCi), A9608 - Region Auth#: Date Range: NPI: Member ID: Medicare Site/Contact: Case/Ref#: Notes: Route to or Requested Scheduling Pool: P PET ASSOCIATE PROFESSOR OF GEOGRAPHY Naomi BROWER CLERICAL POOL([place]), Naomi RUIZ MATE RELIEF Allergies As of Date: 04/28/2024 Noted Allergy Reaction CIPROFLOXACIN 11/12/2023 4 - Hives Date Reviewed: 04/28/2024 Reviewed by: Divina Braswell LPN - Fully Assessed Reason for Visit: Nm Pet Request [[id number]] Prescriptions as of 05/17/2024 - Tadalafil (CIALIS) [...] fluticasone (FLONASE) 50 mcg/actuation nasal spray 1 [place]. Problem List As Of Date 04/28/2024 Noted [...] Encounter Status:Closed by MISTY SHER on 05/17/24 [facility] Telephone (RADTSA) SUKHDEEP GAMINO ([id number]) 1960 Date Time Provider Department 04/28/24 [place] [...] fluticasone (FLONASE) 50 mcg/actuation nasal spray 1 [place]. Problem List As Of Date 04/28/2024 Noted [...] Status:Closed by CHARLENE REYNOSO on 05/04/24 Normal [facility] PSA SerPl-mCncon 04-26-2024 Prostate specific Ag [Mass/Vol] 0.18 ng/mL Normal <2.60 [facility] Comment on above: Order Comment: Speci men Type: BLOOD SPECIMENOrdering Facility: [facility] Address: [address] [place] [address] Result Comment: Tota l PSA test methodology used is the Electrochemiluminescence Immunoassay by [employer]. Total PSA values by differing methodologies cannot be interchanged. Performed By: #### 2 857-1 ####[facility] LABCLIA [id number] [address] STATES OF [facility] PSA SerPl-mCncon 03-31-2024 Prostate specific Ag [Mass/Vol] 0.12 ng/mL Normal <2.60 [facility] Comment on above: Order Comment: Speci men Type: BLOOD SPECIMENOrdering Facility: [facility] Address: [address] [place] [address] Result Comment: Tota l PSA test methodology used is the Electrochemiluminescence Immunoassay by [employer]. Total PSA values by differing methodologies cannot be interchanged. Performed By: #### 2 857-1 ####[facility] LABCLIA [id number] [place] [id number] [place] Office Visiton 12-29-2023 Follow-up visit [id number] Saldana 1960 M Date Provider Department Center 12/29/2023 [id number], ADRIANA CARD [facility] No family history on file Level of Service:53173 LA OFFICE/OUTPATIENT ESTABLISHED LOW MDM 20 MIN Normal [facility] Orders Onlyon 12-25-2023 Orders Only [id number] Saldana 1960 M Date Provider Department Center 12/25/2023 [id number], HISTORICAL BH CARD [facility] No family history on file Normal [facility] PSA SerPl-mCncon 12-25-2023 Prostate specific Ag [Mass/Vol] 0.03 ng/mL Normal <2.60 [facility] Comment on above: Order Comment: Speci men Type: BLOOD SPECIMENOrdering Facility: [facility] Address: [address] [place] [address] Result Comment: Maykel mera PSA test methodology used is the Electrochemiluminescence Immunoassay by [employer]. Total PSA values by differing methodologies cannot be interchanged. Performed By: #### 2 857-1 ####[facility] LABCLIA [id number] [place] [id number] [facility] [place] 11-16-2023 CNPN Telephone (GLQ) SUKHDEEP GAMINO ([id number]) 1960 Date Time Provider Department 11/16/23 CASI [...] RN, BSN Triage Nurse Department of Urology [facility] Allergies As of Date: 11/16/2023 Noted Allergy [...] fluticasone (FLONASE) 50 mcg/actuation nasal spray 1 [place]. - bicalutamide (CASODEX) 50 mg tablet Take [...] Encounter Status:Closed by CASI ROCHA on 11/16/23 [facility] [place] [facility] SU[facility] ([id number]) 1960 M Date Time Provider Department 11/12/23 [...] RN, BSN Triage Nurse Department of Urology [facility] Allergies As of Date: 11/12/2023 (No Known [...] fluticasone (FLONASE) 50 mcg/actuation nasal spray 1 [place]. - bicalutamide (CASODEX) 50 mg tablet Take [...] Status:Closed by CASI ROCHA on 11/12/23 Normal [facility] Telephone (GLQ) SUKHDEEP GAMINO ([id number]) 1960 M Date Time Provider Department 11/12/23 [...] RN, BSN Triage Nurse Department of Urology [facility] Allergies As of Date: 11/12/2023 Noted Allergy Reaction CIPROFLOXACIN 11/12/2023 4 - Hives Date Reviewed: 11/05/2023 Reviewed by: Shahriar lAexis, BOY - Fully Assessed Reason for Visit: Follow Up Phone Call [6516] Prescriptions as of 11/12/2023 - cephALEXin (KEFLEX) [...] fluticasone (FLONASE) 50 mcg/actuation nasal spray 1 [place]. - bicalutamide (CASODEX) 50 mg tablet Take [...] Encounter Status:Closed by CASI ROCHA on 11/12/23 [facility] [place] 11-10-2023 [place] Telephone (GLQ) SUKHDEEP GAMINO ([id number]) 1960 M Date Time Provider Department 11/10/23 [...] RN, BSN Triage Nurse Department of Urology [facility] Allergies As of Date: 11/10/2023 (No Known [...] fluticasone (FLONASE) 50 mcg/actuation nasal spray 1 [place]. - bicalutamide (CASODEX) 50 mg tablet Take [...] Status:Closed by CASI ROCHA on 11/10/23 Normal [facility] Basic metabolic 2000 panelon 11-06-2023 Anion gap [Moles/Vol] 12 mmol/L Normal 9-18 [facility] Comment on above: Order Comment: Speci men Type: BLOOD SPECIMENOrdering Facility: [facility] Address: [address] [place] [address] Performed By: #### 2 4321-2, 2777-1, 98623-4 ####[facility] LABCLIA [id number] [place] [address] [place] Calcium [Mass/Vol] 8.8 mg/dL Normal 8.5-10.2 [facility] Comment on above: Order Comment: Speci men Type: BLOOD SPECIMENOrdering Facility: [facility] Address: [address] [place] [id number] Performed By: #### 2 4321-2, 277-, ####[facility] LABCLIA [id number] [address] [address] [place] Chloride [Moles/Vol] 103 mmol/L Normal 97-105 [facility] Comment on above: Order Comment: Speci men Type: BLOOD SPECIMENOrdering Facility: [facility] Address: [address] [place] [address] Performed By: #### 2 4321-2, 277-, ####[facility] LABIA [id number] [place] [id number] [place] CO2 [Moles/Vol] 21 mmol/L Low 22-30 [facility] Comment on above: Order Comment: Speci men Type: BLOOD SPECIMENOrdering Facility: [facility] Address: [address] [place] [address] Performed By: #### 2 4321-2, 27701-31, ####[facility] LABIA [id number] [place] [id number] [place] Creatinine [Mass/Vol] 1.23 mg/dL High 0.73-1.22 [facility] Comment on above: Order Comment: Speci men Type: BLOOD SPECIMENOrdering Facility: [facility] Address: [address] [place] [address] Performed By: #### 2 4321-2, 27701-31, ####[facility] LABIA [id number] [place] [id number] [place] Creatinine and Glomerular filtration rate.predicted panel (S/P/Bld) 66 mL/min/1.73m??? Normal >=60 [facility] Comment on above: Order Comment: Speci men Type: BLOOD SPECIMENOrdering Facility: [facility] Address: [address], [place] [address] Result Comment: Jamila mated Glomerular Filtration Rate [...] GFR. Performed By: #### 2 4321-2, 2777-, ####[facility] LABCLIA [id number] [address] [address] [place] Glucose [Mass/Vol] 190 mg/dL High 74-99 [facility] Comment on above: Order Comment: Penelope taylor Type: BLOOD SPECIMENOrdering Facility: [facility] Address: [address] [place] [address] Result Comment: The Citizen Of [place] Diabetes Association (ADA) provides guidance for cutoff [...] Standards of Medical Care in Diabetes 2016, Citizen Of [place] Diabetes Association. Diabetes Care. 2016.39(Suppl 1). Performed By: #### 2 4321-2, 27701-31, ####[facility] LABIA [id number] [address] [address] [place] Potassium [Moles/Vol] 4.4 mmol/L Normal 3.7-5.1 [facility] Comment on above: Order Comment: Penelope taylor Type: BLOOD SPECIMENOrdering Facility: [facility] Address: [address] [place] [address] Performed By: #### 2 4321-2, 27701-31, ####[facility] LABCLIA [id number] [place] [address] [place] Sodium [Moles/Vol] 136 mmol/L Normal 136-144 [facility] Comment on above: Order Comment: Speci men Type: BLOOD SPECIMENOrdering Facility: [facility] Address: [address] [place] [address] Performed By: #### 2 4321-2, 2777-1, ####[facility] LABIA [id number] [place] [address] [place] Urea nitrogen [Mass/Vol] 19 mg/dL Normal 9-24 [facility] Comment on above: Order Comment: Speci men Type: BLOOD SPECIMENOrdering Facility: [facility] Address: [address] [place] [address] Performed By: #### 2 4321-2, 277-, ####[facility] LABIA [id number] [place] [address] [place] CBC W Auto Differential pane l (Bld)on 11-06-2023 Basophils (Bld) [#/Vol] 10*3/uL Normal <0.11 [facility] Comment on above: Order Comment: Speci men Type: BLOOD SPECIMENOrdering Facility: [facility] Address: [address] [place] [address] Performed By: #### 5 7021-8 ####[facility] LABIA [id number] [place] [address] [place] Basophils/100 WBC (Bld) 0.1 % Normal [facility] Comment on above: Order Comment: Speci men Type: BLOOD SPECIMENOrdering Facility: [facility] Address: [address] [place] [address] Performed By: #### 5 7021-8 ####[facility] LABIA [id number] [place] [address] [place] Differential cell count method Nom (Bld) Auto Normal [facility] Comment on above: Order Comment: Speci men Type: BLOOD SPECIMENOrdering Facility: [facility] Address: [address] [place] [address] Performed By: #### 5 7021-8 ####[facility] LABCLIA [id number] [place] [address] [place] Eosinophils (Bld) [#/Vol] 10*3/uL Normal <0.46 [facility] Comment on above: Order Comment: Speci men Type: BLOOD SPECIMENOrdering Facility: [facility] Address: [address] [place] [address] Performed By: #### 5 7021-8 ####[facility] LABCLIA [id number] [place] [address] [place] Eosinophils/100 WBC (Bld) 0.0 % Normal [facility] Comment on above: Order Comment: Speci men Type: BLOOD SPECIMENOrdering Facility: [facility] Address: [address] [place] [address] Performed By: #### 5 7021-8 ####[facility] LABCLIA [id number] [place] [address] [place] Erythrocyte distribution width (RBC) [Ratio] 13.1 % Normal 11.5-15.0 [facility] Comment on above: Order Comment: Speci men Type: BLOOD SPECIMENOrdering Facility: [facility] Address: [address] [place] [address] Performed By: #### 5 7021-8 ####[facility] LABCLIA [id number] [place] [address] [place] Hematocrit (Bld) [Volume fraction] 34.5 % Low 39.0-51.0 [facility] Comment on above: Order Comment: Speci men Type: BLOOD SPECIMENOrdering Facility: [facility] Address: [address] [place] [address] Performed By: #### 5 7021-8 ####[facility] LABCLIA [id number] [place] [address] [place] Hemoglobin (Bld) [Mass/Vol] 11.7 g/dL Low 13.0-17.0 [facility] Comment on above: Order Comment: Speci men Type: BLOOD SPECIMENOrdering Facility: [facility] Address: [address] [place] [address] Performed By: #### 5 7021-8 ####[facility] LABCLIA [id number] [place] [address] [place] Immature granulocytes (Bld) [#/Vol] 0.04 10*3/uL Normal <0.10 [facility] Comment on above: Order Comment: Speci men Type: BLOOD SPECIMENOrdering Facility: [facility] Address: [address] [place] [address] Performed By: #### 5 7021-8 ####[facility] LABCLIA [id number] [place] [address] [place] Immature granulocytes/100 WBC (Bld) 0.5 % Normal [facility] Comment on above: Order Comment: Speci men Type: BLOOD SPECIMENOrdering Facility: [facility] Address: [address] [place] [address] Performed By: #### 5 7021-8 ####[facility] LABCLIA [id number] [place] [address] [place] Lymphocytes (Bld) [#/Vol] 0.59 10*3/uL Low 1.00-4.00 [facility] Comment on above: Order Comment: Speci men Type: BLOOD SPECIMENOrdering Facility: [facility] Address: [address] [place] [address] Performed By: #### 5 7021-8 ####[facility] LABCLIA [id number] [address] [place] Lymphocytes/100 WBC (Bld) 7.3 % Normal [facility] Comment on above: Order Comment: Speci men Type: BLOOD SPECIMENOrdering Facility: [facility] Address: [address] [place] [address] Performed By: #### 5 7021-8 ####[facility] LABCLIA [id number] [place] [address] [place] MCH (RBC) [Entitic mass] 30.0 pg Normal 26.0-34.0 [facility] Comment on above: Order Comment: Speci men Type: BLOOD SPECIMENOrdering Facility: [facility] Address: [address] [place] [address] Performed By: #### 5 7021-8 ####[facility] LABCLIA [id number] [place] [address] [place] MCHC (RBC) [Mass/Vol] 33.9 g/dL Normal 30.5-36.0 [facility] Comment on above: Order Comment: Speci men Type: BLOOD SPECIMENOrdering Facility: [facility] Address: [address] [place] [address] Performed By: #### 5 7021-8 ####[facility] LABIA [id number] [place] [address] [place] MCV (RBC) [Entitic vol] 88.5 fL Normal 80.0-100.0 [facility] Comment on above: Order Comment: Speci men Type: BLOOD SPECIMENOrdering Facility: [facility] Address: [address] [place] [address] Performed By: #### 5 7021-8 ####[facility] LABCLIA [id number] [place] [address] [place] Monocytes (Bld) [#/Vol] 0.56 10*3/uL Normal <0.87 [facility] Comment on above: Order Comment: Speci men Type: BLOOD SPECIMENOrdering Facility: [facility] Address: [address] [place] [address] Performed By: #### 5 7021-8 ####[facility] LABCLIA [id number] [place] [address] [place] Monocytes/100 WBC (Bld) 6.9 % Normal [facility] Comment on above: Order Comment: Speci men Type: BLOOD SPECIMENOrdering Facility: [facility] Address: [address] [place] [address] Performed By: #### 5 7021-8 ####[facility] LABCLIA [id number] [place] [address] [place] Neutrophils (Bld) [#/Vol] 6.87 10*3/uL Normal 1.45-7.50 [facility] Comment on above: Order Comment: Speci men Type: BLOOD SPECIMENOrdering Facility: [facility] Address: [address] [place] [address] Performed By: #### 5 7021-8 ####[facility] LABCLIA [id number] [place] [address] [place] Neutrophils/100 WBC (Bld) 85.2 % Normal [facility] Comment on above: Order Comment: Speci men Type: BLOOD SPECIMENOrdering Facility: [facility] Address: [address] [place] [address] Performed By: #### 5 7021-8 ####[facility] LABCLIA [id number] [place] [address] [place] Nucleated RBC (Bld) [#/Vol] 10*3/uL Normal <0.01 [facility] Comment on above: Order Comment: Speci men Type: BLOOD SPECIMENOrdering Facility: [facility] Address: [address] [place] [address] Performed By: #### 5 7021-8 ####[facility] LABCLIA [id number] [place] [address] [place] Nucleated RBC/100 WBC (Bld) [Ratio] 0.0 /100 WBC Normal [facility] Comment on above: Order Comment: Speci men Type: BLOOD SPECIMENOrdering Facility: [facility] Address: [address] [place] [address] Performed By: #### 5 7021-8 ####[facility] LABCLIA [id number] [place] [address] [place] Platelet mean volume (Bld) [Entitic vol] 8.2 fL Low 9.0-12.7 [facility] Comment on above: Order Comment: Speci men Type: BLOOD SPECIMENOrdering Facility: [facility] Address: [address] [place] [address] Performed By: #### 5 7021-8 ####[facility] LABCLIA [id number] [place] [address] [place] Platelets (Bld) [#/Vol] 238 10*3/uL Normal 150-400 [facility] Comment on above: Order Comment: Speci men Type: BLOOD SPECIMENOrdering Facility: [facility] Address: [address] [place] [address] Performed By: #### 5 7021-8 ####[facility] LABCLIA [id number] [place] [address] [place] RBC (Bld) [#/Vol] 3.90 10*6/uL Low 4.20-6.00 [facility] Comment on above: Order Comment: Speci men Type: BLOOD SPECIMENOrdering Facility: [facility] Address: [address] [place] [address] Performed By: #### 5 7021-8 ####[facility] LABCLIA [id number] [place] [address] [place] WBC (Bld) [#/Vol] 8.07 10*3/uL Normal 3.70-11.00 [facility] Comment on above: Order Comment: Speci men Type: BLOOD SPECIMENOrdering Facility: [facility] Address: [address] [place], [place] [address] Performed By: #### 5 7021-8 ####[facility] LABCLIA [id number] [facility] [id number] [id number] [facility] [place] CNDSon 11-06-2023 CNDS HNO ID: [id number] Author: ROXANA BAH MD Service: Urology Author Type: Physician Type: Discharge Summary Filed: 11/28/2023 10:20 Note Text: [place] [address] or (389) [facility] DISCHARGE SUMMARY Patient Name: Sukhdeep Gamino [...] Your Medications These medications were sent to [facility] [address] [place] [address] [address] [facility] [phone] [address] acetaminophen 500 mg tablet apixaban 2.5 mg tab(s) ciprofloxacin HCl 500 mg tablet docusate sodium 100 mg capsule oxybutynin XL 5 mg 24 hr tablet oxyCODONE IR 5 mg immediate release tablet No future appointments. ELECTRONICALLY SIGNED: Nayely Flor MD [facility] ECG COMPLETEon 11-06-2023 ECG COMPLETE Ventricular Rate : 1 20 BPM QRS Duration : 78 ms Q-T Interval : 346 ms QTC Calculation(Bazett) : 489 ms Calculated R [place] : -41 degrees Calculated T [place] : 7 degrees ATRIAL FIBRILLATION WITH RAPID VENTRICULAR RESPONSE LEFT AXIS DEVIATION LOW VOLTAGE QRS, CONSIDER PULMONARY DISEASE, PERICARDIAL EFFUSION, OR NORMAL VARIANT INFERIOR MYOCARDIAL INFARCTION , AGE UNDETERMINED ABNORMAL ECG Confirmed by ALEXSANDRA ADLER M.D. ([id number]) on 11/12/2023 4:53:17 PM NAME : SUKHDEEP GAMINO PID : [id number] : 1960 Gender : Male Race : Unknown ORD : [id number] Procedure Date : Nov 06 2023 02:48:19 Edit Date : Nov 12 2023 16:56:02 Diagnosis: ATRIAL FIBRILLATION WITH RAPID VENTRICULAR RESPONSE LEFT AXIS DEVIATION LOW VOLTAGE QRS, CONSIDER PULMONARY DISEASE, PERICARDIAL EFFUSION, OR NORMAL VARIANT INFERIOR MYOCARDIAL INFARCTION , AGE UNDETERMINED ABNORMAL ECG Confirmed by ALEXSANDRA ADLER M.D. ([id number]) on 11/12/2023 4:53:17 PM Test Reason : Arrhythmia Location : 314 : [address] [place] [address] Overread By : ALEXSANDRA ADLER M.D. Edited By : ALEXSANDRA ADLER M.D. Referred By : , Acquired by : HELADIO DUENAS Normal [facility] Magnesium [facility] 11-05 Magnesium [Mass/Vol] 2.1 mg/dL Normal 1.7-2.3 [facility] Comment on above: Order Comment: Speci men Type: BLOOD SPECIMENOrdering Facility: [facility] Address: [address] [place] [address] Performed By: #### 2 4321-2, 2777-1, 12565-6 ####[facility] LABCLIA [id number] [address] [place] NURSING PROGon 11-06-2023 NURSING PROG HNO ID: [id number] Author: SHAHRIAR ALEXIS RN Service: ? Author Type: Registered Nurse Type: Nursing Progress Note Filed: 11/06/2023 05:43 Note Text: Nursing Progress Note Topic of Note: Daily Note PATIENT NAME: Sukhdeep Gamino Patient Location: [place] [address]/[facility]-10 Room: [place] [address] 2247 HR 102-119, asymptomatic, Dr. Flori Ochoa [...] This note was completed by: Shahriar Pedro [facility] Phosphate SerPl-ncon 11-05 Phosphate [Mass/Vol] 2.3 mg/dL Low 2.7-4.8 [facility] Comment on above: Order Comment: Speci men Type: BLOOD SPECIMENOrdering Facility: [facility] Address: [address] [place] [address] Performed By: #### 2 4321-2, 2777-1, 85954-7 ####[facility] LABCLIA [id number] [place] [address] [place] ANES POSTPROC EVALon 024 ANES POSTPROC EVAL HNO ID: [id number] Author: KATHY LINDO MD Service: ? Author Type: Anesthesiologist Type: Anesthesia Postprocedure Evaluation Filed: 11/05/2023 18:48 Note Text: POST ANESTHESIA EVALUATION NOTE : 1960 Procedure Summary Date: 11/05/23 Room / Location: [address] [place] Anesthesia Start: 1253 Anesthesia Stop: [...] November 05, 2023 TIME: 6:48 PM CSN: [id number] Normal [facility] ANES PRE-OPon 11-05-2023 ANES PRE-OP HNO ID: [id number] Author: KATHY LINDO MD Service: ? Author [...] and consent discussed: yes. Patient / Responsible [employer] agrees to proceed: yes Patient / Surrogate [...] fluticasone (FLONASE) 50 mcg/actuation nasal spray 1 [place]. I have interviewed and examined the patient. I have reviewed the medical record and/or the pre-anesthesia evaluation, pertinent labs, and test results. This contains updated information obtained within 48 hours of Surgery/Procedure. SIGNATURE: Kathy Lindo MD PATIENT NAME: Sukhdeep Gamino DATE: November 05, 2023 TIME: 12:18 PM CSN: [id number] Normal [facility] BRIEF OP NOTon 11-05-2023 BRIEF OP NOT HNO ID: [id number] Author: RODRÍGUEZ WILKES MD Service: Urology Author Type: Physician Type: Brief Op Note Filed: 11/05/2023 18:04 Note Text: UROLOGY SERVICE BRIEF OPERATIVE NOTE LOG ID: [id number] Surgery/Procedure Date: 11/05/2023 Incision/Procedure Start Time: 1:35 PM Incision Close/Procedure End Time: 5:57 PM Patient Age: [age] year old Surgeon(s)/Proceduralist(s) and Contract Clerk(s): Surgeon(s) and Role: * Roxana Bah MD [...] 2023 TIME: 6:02 PM PAGER/CONTACT #: Normal [facility] Basic metabolic 2000 panelon 11-05-2023 Anion gap [Moles/Vol] 12 mmol/L Normal 9-18 [facility] Comment on above: Order Comment: Speci men Type: BLOOD SPECIMENOrdering Facility: [facility] Address: [address] [place] [id number] Performed By: #### 2 4321-2 ####[facility] LABCLIA [id number] [place] [address] [place] Calcium [Mass/Vol] 8.5 mg/dL Normal 8.5-10.2 [facility] Comment on above: Order Comment: Speci men Type: BLOOD SPECIMENOrdering Facility: [facility] Address: [address] [place] [address] Performed By: #### 2 4321-2 ####[facility] LABCLIA [id number] [place] [address] [place] Chloride [Moles/Vol] 106 mmol/L High 97-105 [facility] Comment on above: Order Comment: Speci men Type: BLOOD SPECIMENOrdering Facility: [facility] Address: [address] [place] [address] Performed By: #### 2 4321-2 ####[facility] LABCLIA [id number] [place] [address] [place] CO2 [Moles/Vol] 21 mmol/L Low 22-30 [facility] Comment on above: Order Comment: Speci men Type: BLOOD SPECIMENOrdering Facility: [facility] Address: [address] [place], [place] [address] Performed By: #### 2 4321-2 ####[facility] LABCLIA [id number] [place] [id number] [place] Creatinine [Mass/Vol] 1.29 mg/dL High 0.73-1.22 [facility] Comment on above: Order Comment: Speci men Type: BLOOD SPECIMENOrdering Facility: [facility] Address: [address] [place], [place] [address] Performed By: #### 2 4321-2 ####[facility] LABCLIA [id number] [place] [address] [place] Creatinine and Glomerular filtration rate.predicted panel (S/P/Bld) 62 mL/min/1.73m??? Normal >=60 [facility] Comment on above: Order Comment: Penelope taylor Type: BLOOD SPECIMENOrdering Facility: [facility] Address: [address] [place] [address] Result Comment: Jamila mated Glomerular Filtration Rate [...] actual GFR. Performed By: #### 2 4321-2 ####[facility] LABCLIA [id number] [place] [address] [place] Glucose [Mass/Vol] 134 mg/dL High 74-99 [facility] Comment on above: Order Comment: Penelope taylor Type: BLOOD SPECIMENOrdering Facility: [facility] Address: [address] [place] [address] Result Comment: The Citizen [place] Diabetes Association (ADA) provides guidance for cutoff [...] Standards of Medical Care in Diabetes 2016, [place] Diabetes Association. Diabetes Care. 2016.39(Suppl 1). Performed By: #### 2 4321-2 ####[facility] LABCLIA [id number] [place] [address] [place] Potassium [Moles/Vol] 4.6 mmol/L Normal 3.7-5.1 [facility] Comment on above: Order Comment: Speci men Type: BLOOD SPECIMENOrdering Facility: [facility] Address: [address] [place] [address] Performed By: #### 2 4321-2 ####[facility] LABIA [id number] [place] [address] [place] Sodium [Moles/Vol] 139 mmol/L Normal 136-144 [facility] Comment on above: Order Comment: Speci men Type: BLOOD SPECIMENOrdering Facility: [facility] Address: [address] [place] [address] Performed By: #### 2 4321-2 ####[facility] LABIA [id number] [place] [address] [place] Urea nitrogen [Mass/Vol] 25 mg/dL High 9-24 [facility] Comment on above: Order Comment: Speci men Type: BLOOD SPECIMENOrdering Facility: [facility] Address: [address] [place] [address] Performed By: #### 2 4321-2 ####[facility] LABIA [id number] [place] [address] [place] CBC W Auto Differential pane l (Bld)on 11-05-2023 Basophils (Bld) [#/Vol] 0.03 10*3/uL Normal <0.11 [facility] Comment on above: Order Comment: Speci men Type: BLOOD SPECIMENOrdering Facility: [facility] Address: [address] [place] [address] Performed By: #### 5 7021-8 ####[facility] LABIA [id number] [place] [address] [place] Basophils/100 WBC (Bld) 0.3 % Normal [facility] Comment on above: Order Comment: Speci men Type: BLOOD SPECIMENOrdering Facility: [facility] Address: [address] [place] [address] Performed By: #### 5 7021-8 ####[facility] LABCLIA [id number] [place] [address] [place] Differential cell count method Nom (Bld) Auto Normal [facility] Comment on above: Order Comment: Speci men Type: BLOOD SPECIMENOrdering Facility: [facility] Address: [address] [place] [address] Performed By: #### 5 7021-8 ####[facility] LABCLIA [id number] [place] [address] [place] Eosinophils (Bld) [#/Vol] 10*3/uL Normal <0.46 [facility] Comment on above: Order Comment: Speci men Type: BLOOD SPECIMENOrdering Facility: [facility] Address: [address] [place] [address] Performed By: #### 5 7021-8 ####[facility] LABCLIA [id number] [place] [address] [place] Eosinophils/100 WBC (Bld) 0.2 % Normal [facility] Comment on above: Order Comment: Speci men Type: BLOOD SPECIMENOrdering Facility: [facility] Address: [address] [place] [address] Performed By: #### 5 7021-8 ####[facility] LABCLIA [id number] [place] [address] [place] Erythrocyte distribution width (RBC) [Ratio] 13.1 % Normal 11.5-15.0 [facility] Comment on above: Order Comment: Speci men Type: BLOOD SPECIMENOrdering Facility: [facility] Address: [address] [place] [address] Performed By: #### 5 7021-8 ####[facility] LABCLIA [id number] [place] [address] [place] Hematocrit (Bld) [Volume fraction] 34.0 % Low 39.0-51.0 [facility] Comment on above: Order Comment: Speci men Type: BLOOD SPECIMENOrdering Facility: [facility] Address: [address] [place] [address] Performed By: #### 5 7021-8 ####[facility] LABCLIA [id number] [place] [address] [place] Hemoglobin (Bld) [Mass/Vol] 11.6 g/dL Low 13.0-17.0 [facility] Comment on above: Order Comment: Speci men Type: BLOOD SPECIMENOrdering Facility: [facility] Address: [address] [place] [address] Performed By: #### 5 7021-8 ####[facility] LABCLIA [id number] [place] [address] [place] Immature granulocytes (Bld) [#/Vol] 0.06 10*3/uL Normal <0.10 [facility] Comment on above: Order Comment: Speci men Type: BLOOD SPECIMENOrdering Facility: [facility] Address: [address] [place] [address] Performed By: #### 5 7021-8 ####[facility] LABCLIA [id number] [place] [address] [place] Immature granulocytes/100 WBC (Bld) 0.7 % Normal [facility] Comment on above: Order Comment: Speci men Type: BLOOD SPECIMENOrdering Facility: [facility] Address: [address] [place] [address] Performed By: #### 5 7021-8 ####[facility] LABCLIA [id number] [place] [address] [place] Lymphocytes (Bld) [#/Vol] 0.39 10*3/uL Low 1.00-4.00 [facility] Comment on above: Order Comment: Speci men Type: BLOOD SPECIMENOrdering Facility: [facility] Address: [address] [place] [address] Performed By: #### 5 7021-8 ####[facility] LABIA [id number] [place] [address] [place] Lymphocytes/100 WBC (Bld) 4.4 % Normal [facility] Comment on above: Order Comment: Speci men Type: BLOOD SPECIMENOrdering Facility: [facility] Address: [address] [place] [address] Performed By: #### 5 7021-8 ####[facility] LABIA [id number] [place] [address] [place] MCH (RBC) [Entitic mass] 30.5 pg Normal 26.0-34.0 [facility] Comment on above: Order Comment: Speci men Type: BLOOD SPECIMENOrdering Facility: [facility] Address: [address] [place] [address] Performed By: #### 5 7021-8 ####[facility] LABIA [id number] [place] [address] [place] MCHC (RBC) [Mass/Vol] 34.1 g/dL Normal 30.5-36.0 [facility] Comment on above: Order Comment: Speci men Type: BLOOD SPECIMENOrdering Facility: [facility] Address: [address] [place] [address] Performed By: #### 5 7021-8 ####[facility] LABIA [id number] [place] [address] [place] MCV (RBC) [Entitic vol] 89.5 fL Normal 80.0-100.0 [facility] Comment on above: Order Comment: Speci men Type: BLOOD SPECIMENOrdering Facility: [facility] Address: [address] [place] [address] Performed By: #### 5 7021-8 ####[facility] LABIA [id number] [place] [address] [place] Monocytes (Bld) [#/Vol] 0.26 10*3/uL Normal <0.87 [facility] Comment on above: Order Comment: Speci men Type: BLOOD SPECIMENOrdering Facility: [facility] Address: [address] [place] [address] Performed By: #### 5 7021-8 ####[facility] LABCLIA [id number] [place] [address] [place] Monocytes/100 WBC (Bld) 2.9 % Normal [facility] Comment on above: Order Comment: Speci men Type: BLOOD SPECIMENOrdering Facility: [facility] Address: [address] [place] [address] Performed By: #### 5 7021-8 ####[facility] LABCLIA [id number] [place] [address] [place] Neutrophils (Bld) [#/Vol] 8.13 10*3/uL High 1.45-7.50 [facility] Comment on above: Order Comment: Speci men Type: BLOOD SPECIMENOrdering Facility: [facility] Address: [address] [place] [address] Performed By: #### 5 7021-8 ####[facility] LABCLIA [id number] [place] [address] [place] Neutrophils/100 WBC (Bld) 91.5 % Normal [facility] Comment on above: Order Comment: Speci men Type: BLOOD SPECIMENOrdering Facility: [facility] Address: [address] [place] [address] Performed By: #### 5 7021-8 ####[facility] LABCLIA [id number] [place] [address] [place] Nucleated RBC (Bld) [#/Vol] 10*3/uL Normal <0.01 [facility] Comment on above: Order Comment: Speci men Type: BLOOD SPECIMENOrdering Facility: [facility] Address: [address] [place] [address] Performed By: #### 5 7021-8 ####[facility] LABCLIA [id number] [place] [address] [place] Nucleated RBC/100 WBC (Bld) [Ratio] 0.0 /100 WBC Normal [facility] Comment on above: Order Comment: Speci men Type: BLOOD SPECIMENOrdering Facility: [facility] Address: [address] [place] [address] Performed By: #### 5 7021-8 ####[facility] LABCLIA [id number] [place] [address] [place] Platelet mean volume (Bld) [Entitic vol] 8.0 fL Low 9.0-12.7 [facility] Comment on above: Order Comment: Speci men Type: BLOOD SPECIMENOrdering Facility: [facility] Address: [address] [place] [address] Performed By: #### 5 7021-8 ####[facility] LABIA [id number] [place] [address] [place] Platelets (Bld) [#/Vol] 240 10*3/uL Normal 150-400 [facility] Comment on above: Order Comment: Speci men Type: BLOOD SPECIMENOrdering Facility: [facility] Address: [address] [place] [address] Performed By: #### 5 7021-8 ####[facility] LABCLIA [id number] [place] [address] [place] RBC (Bld) [#/Vol] 3.80 10*6/uL Low 4.20-6.00 [facility] Comment on above: Order Comment: Speci men Type: BLOOD SPECIMENOrdering Facility: [facility] Address: [address] [place] [address] Performed By: #### 5 7021-8 ####[facility] LABIA [id number] [id number] [address] [place] WBC (Bld) [#/Vol] 8.89 10*3/uL Normal 3.70-11.00 [facility] Comment on above: Order Comment: Speci men Type: BLOOD SPECIMENOrdering Facility: [facility] Address: [address] [place] [address] Performed By: #### 5 7021-8 ####[facility] LABCLIA [id number] [place] [address] [place] NURSING PROGon 11-05-2023 NURSING PROG HNO ID: [id number] Author: MIRIAM IQBAL, BOY Service: Nursing Author Type: Registered Nurse Type: Nursing Progress Note Filed: 11/05/2023 20:29 Note Text: Transfer Note: PATIENT NAME: Sukhdeep Gamino Patient Location: [place] [address] Room: [place] [address] Patient transferred into room/unit [facility] from PACU in stable condition. Actions taken: No futher actions taken at this time. Will continue to monitor and check with patient. Normal [facility] OPERATIVE NOon 11-05-2023 OPERATIVE NO HNO ID: [id number] Author: ROXANA BAH MD Service: Urology Author Type: Physician Type: Operative Report Filed: 11/29/2023 22:56 Note Text: UROLOGY OPERATIVE REPORT LOG ID: [id number] Surgery/Procedure Date: 11/05/2023 INCISION/PROCEDURE START TIME: 1:35 PM INCISION CLOSE/PROCEDURE END TIME: 5:57 PM Surgeon(s)/Proceduralist(s) and Contract Clerk(s): Surgeon(s) and Role: * Roxana Bah MD [...] one 8-mm robotic port and one 12-mm certified surgical tech/first assistant port was placed on the right. [...] the external iliac artery laterally, node of [place] inferiorly, below the obturator neurovascular bundle posteriorly, [...] prostate (H (more content not included)... Normal [facility] SURGICAL PATHOLOGYon 024 BLOCK FOR ADDITIONAL BIOMARKERS/MOLECULA R STUDIES A20 Normal [facility] Comment on above: Order Comment: Speci men Type: TISSUE SPECIMENOrdering Facility: [facility] Address: [address] [place] [address] Performed By: #### S ####[facility] LABCLIA [id number] [place] [address] [place] CASE REPORT Normal [facility] Comment on above: Order Comment: Speci men Type: TISSUE SPECIMENOrdering Facility: [facility] Address: [address] [place] [address] Result Comment: Surg ica Pathology Report Case: [id number] Authorizing Provider: Roxana Bah MD Collected: 11/05/2023 05:35 PM Ordering Location: Admitting Received: 11/05/2023 06:13 PM Pathologist: Eldon Watkins MD Specimens: A) - PROSTATE RADICAL PROSTATECTOMY, Prostate and seminal vesicles B) - LYMPH NODE, Bilateral pelvic lymph nodes Performed By: #### S ####[facility] LABCLIA [id number] [place] [address] [place] CLINICAL HISTORY Normal [facility] Comment on above: Order Comment: Speci men Type: TISSUE SPECIMENOrdering Facility: [facility] Address: [address] [place] [address] Result Comment: Pre- op diagnosis: Malignant neoplasm of prostate (HCC) [C61] Performed By: #### S ####[facility] [id number] [address] FINAL DIAGNOSIS Normal [facility] Comment on above: Order Comment: Speci men Type: TISSUE SPECIMENOrdering Facility: [facility] Address: [address] [place] [address] Result Comment: John meza, radical prostatectomy: - [...] Absent BIANKA/gautam 11/10/2023 Performed By: #### S ####[facility] LABIA [id number] [address] [place] FINAL PERFORMING LAB Normal [facility] Comment on above: Order Comment: Speci men Type: TISSUE SPECIMENOrdering Facility: [facility] Address: [address] [place] [address] Result Comment: Diag nostic interpretation performed at [facility], [address] [place] [address] CLIA# [id number] Restaurant Attendant: Gerry Wilson M.D. Performed By: #### S ####[facility] LABCLIA [id number] KARENCorrine [place] [address] [place] GROSS DESCRIPTION Normal [facility] Comment on above: Order Comment: Speci men Type: TISSUE SPECIMENOrdering Facility: [facility] Address: [address] [place] [address] Result Comment: A. P ROSTATE RADICAL PROSTATECTOMY [...] unremarkable. Segments of vas deferens are unremarkable. Product Development Engineer sections are submitted as follows: A1. Right [...] possible lymph nodes per cassette, intact B5-6. Product Development Engineer fibroadipose tissue Gross examination performed at [facility], [address] [place] [address] CLIA# [id number] 11/06/23 1:56 PM Performed By: #### S ####[facility] LABCLIA [id number] [place] [address] [place] SYNOPTIC REPORT Normal [facility] Comment on above: Order Comment: Speci men Type: TISSUE SPECIMENOrdering Facility: [facility] Address: [address] [place] [address] Result Comment: PROS CAMPOS GLAND: Radical Prostatectomy PROSTATE GLAND: RESECTION - All Specimens 8th Edition - Protocol posted: 04/22/2023 SPECIMEN Procedure: Radical prostatectomy Prostate Size: Prostate Weight (Grams): 38.35 g Prostate Greatest Dimension (Centimeters): 5.2 cm Additional Prostate Dimension (Centimeters): 5.1 cm Additional Prostate Dimension (Centimeters): 3.5 cm TUMOR Histologic Type: Acinar adenocarcinoma, conventional (usual) Histologic Grade: Grade: Grade group 4 ([place] Score 4 + 4 = 8) Intraductal [...] pN Category: pN0 Performed By: #### S ####[facility] LABIA [id number] [place] CBC panel Auto (Bld)on 11-02 Erythrocyte distribution width (RBC) [Ratio] 13.2 % Normal 11.5-15.0 [facility] Comment on above: Order Comment: Speci men Type: BLOOD SPECIMENOrdering Facility: [facility] Address: [address] [place] [address] Performed By: #### 5 8410-2 ####[facility] [id number] [address] [place] Hematocrit (Bld) [Volume fraction] 43.8 % Normal 39.0-51.0 [facility] Comment on above: Order Comment: Speci men Type: BLOOD SPECIMENOrdering Facility: [facility] Address: [address] [place] [address] Performed By: #### 5 8410-2 ####[facility] [id number] [address] [place] Hemoglobin (Bld) [Mass/Vol] 14.3 g/dL Normal 13.0-17.0 [facility] Comment on above: Order Comment: Speci men Type: BLOOD SPECIMENOrdering Facility: [facility] Address: [address] [place] [address] Performed By: #### 5 8410-2 ####[facility] [id number] [place] [address] [place] MCH (RBC) [Entitic mass] 30.0 pg Normal 26.0-34.0 [facility] Comment on above: Order Comment: Speci men Type: BLOOD SPECIMENOrdering Facility: [facility] Address: [address] [place] [address] Performed By: #### 5 8410-2 ####[facility] LABIA [id number] [place] [address] [place] MCHC (RBC) [Mass/Vol] 32.6 g/dL Normal 30.5-36.0 [facility] Comment on above: Order Comment: Speci men Type: BLOOD SPECIMENOrdering Facility: [facility] Address: [address] [place] [address] Performed By: #### 5 8410-2 ####[facility] LABIA [id number] [place] [address] [place] MCV (RBC) [Entitic vol] 92.0 fL Normal 80.0-100.0 [facility] Comment on above: Order Comment: Speci men Type: BLOOD SPECIMENOrdering Facility: [facility] Address: [address] [place] [address] Performed By: #### 5 8410-2 ####[facility] [id number] [place] [address] [place] Nucleated RBC (Bld) [#/Vol] 10*3/uL Normal <0.01 [facility] Comment on above: Order Comment: Speci men Type: BLOOD SPECIMENOrdering Facility: [facility] Address: [address] [place] [address] Performed By: #### 5 8410-2 ####[facility] LABIA [id number] [place] [address] [place] Platelet mean volume (Bld) [Entitic vol] 8.4 fL Low 9.0-12.7 [facility] Comment on above: Order Comment: Speci men Type: BLOOD SPECIMENOrdering Facility: [facility] Address: [address] [place] [address] Performed By: #### 5 8410-2 ####[facility] LABIA [id number] [place] [address] [place] Platelets (Bld) [#/Vol] 338 10*3/uL Normal 150-400 [facility] Comment on above: Order Comment: Speci men Type: BLOOD SPECIMENOrdering Facility: [facility] Address: [address] [place] [address] Performed By: #### 5 8410-2 ####[facility] LABIA [id number] [place] [address] [place] RBC (Bld) [#/Vol] 4.76 10*6/uL Normal 4.20-6.00 [facility] Comment on above: Order Comment: Speci men Type: BLOOD SPECIMENOrdering Facility: [facility] Address: [address] [place] [address] Performed By: #### 5 8410-2 ####[facility] [id number] [place] [address] [place] WBC (Bld) [#/Vol] 9.85 10*3/uL Normal 3.70-11.00 [facility] Comment on above: Order Comment: Speci men Type: BLOOD SPECIMENOrdering Facility: [facility] Address: [address] [place] [address] Performed By: #### 5 8410-2 ####[facility] LABIA [id number] [place] [address] [place] CNOVon 11-03-2023 CNOV Office Visit (UROLMN ) SUKHDEEP GAMINO ([id number]) 1960 M Date Time Provider Department 11/03/23 3:00 PM JOHN HUMPHREYS During your visit today, we recorded the following information about you: John Humphreys PA 11/03/2023 3:06 PM Signed [facility] PRE-OP NOTE Sukhdeep Gamino is a 62 year old male. Pre-op Date: November 03, 2023 Date of Procedure: 11/05/2023 Does the patient have an active COVID-19 test in [facility]? N/A Procedure/Surgery: RALP Diagnosis: prostate cancer Primary [...] scheduled: Yes Consent Signed: Consent not in [facility]. Surgeon notified via staff mesage. DOS Orders [...] ReevesC Electronically signed Referring Provider: ROXANA BAH [[id number]] Allergies As of Date: 11/03/2023 (No Known Allergies) Date Reviewed: 11/03/2023 Reviewed by: John Humphreys PA - Fully Assessed Reason for Visit: Pre-Op Teaching [134] Primary Visit Diagnosis:Pre-op testing [Z01.818] Other Visit Diagnoses:Prostate cancer (HCC) [C61] Prostate disease [N42.9] Order(s):URINE CULTURE [SQURCUL] Order #: [id number] Prescriptions as of 11/03/2023 - aspirin, enteric [...] fluticasone (FLONASE) 50 mcg/actuation nasal spray 1 [place]. - bicalutamide (CASODEX) 50 mg tablet Take [...] Status:Closed by JOHN HUMPHREYS on 11/03/23 Normal [facility] CONFIRM BLOOD TYPEon 024 ABO A Normal [facility] Comment on above: Order Comment: Speci men Type: BLOOD SPECIMENOrdering Facility: [facility] Address: [address] [place] [address] Performed By: #### C ONABO ####[facility] BLOOD BANKCLIA [id number] [place] [address] [place] Rh Nom (Bld) Positive Normal [facility] Comment on above: Order Comment: Speci men Type: BLOOD SPECIMENOrdering Facility: [facility] Address: [address] [place] [address] Performed By: #### C ONABO ####[facility] BLOOD BANKCLIA [id number] [place] [address] [place] Comprehensive metabolic 2000 panelon 11-03-2023 Albumin [Mass/Vol] 4.5 g/dL Normal 3.9-4.9 [facility] Comment on above: Order Comment: Speci men Type: BLOOD SPECIMENOrdering Facility: [facility] Address: [address] [place] [address] Performed By: #### 2 4323-8 ####[facility] LABCLIA [id number] [place] [address] [place] ALP [Catalytic activity/Vol] 97 U/L Normal 38-113 [facility] Comment on above: Order Comment: Speci men Type: BLOOD SPECIMENOrdering Facility: [facility] Address: [address] [place] [address] Performed By: #### 2 4323-8 ####[facility] LABCLIA [id number] [place] [address] [place] ALT [Catalytic activity/Vol] 19 U/L Normal 10-54 [facility] Comment on above: Order Comment: Speci men Type: BLOOD SPECIMENOrdering Facility: [facility] Address: [address] [id number] Performed By: #### 2 4323-8 ####[facility] LABCLIA [id number] [address] [address] [place] Anion gap [Moles/Vol] 12 mmol/L Normal 9-18 [facility] Comment on above: Order Comment: Speci men Type: BLOOD SPECIMENOrdering Facility: [facility] Address: [address] [place] [address] Performed By: #### 2 4323-8 ####[facility] LABCLIA [id number] [place] [address] [place] AST [Catalytic activity/Vol] 17 U/L Normal 14-40 [facility] Comment on above: Order Comment: Speci men Type: BLOOD SPECIMENOrdering Facility: [facility] Address: [address] [place] [address] Performed By: #### 2 4323-8 ####[facility] LABCLIA [id number] [place] [address] [place] Bilirubin [Mass/Vol] 0.8 mg/dL Normal 0.2-1.3 [facility] Comment on above: Order Comment: Speci men Type: BLOOD SPECIMENOrdering Facility: [facility] Address: [address] [place], [place] [address] Performed By: #### 2 4323-8 ####[facility] LABCLIA [id number] [place] [address] [place] Calcium [Mass/Vol] 10.1 mg/dL Normal 8.5-10.2 [facility] Comment on above: Order Comment: Speci men Type: BLOOD SPECIMENOrdering Facility: [facility] Address: [address] [place], [place] [address] Performed By: #### 2 4323-8 ####[facility] LABCLIA [id number] [place] [address] [place] Chloride [Moles/Vol] 104 mmol/L Normal 97-105 [facility] Comment on above: Order Comment: Speci men Type: BLOOD SPECIMENOrdering Facility: [facility] Address: [address] [place] [address] Performed By: #### 2 4323-8 ####[facility] LABCLIA [id number] [place] [address] [place] CO2 [Moles/Vol] 25 mmol/L Normal 22-30 [facility] Comment on above: Order Comment: Speci men Type: BLOOD SPECIMENOrdering Facility: [facility] Address: [address] [place] [address] Performed By: #### 2 4323-8 ####[facility] LABCLIA [id number] [place] [address] [place] Creatinine [Mass/Vol] 1.29 mg/dL High 0.73-1.22 [facility] Comment on above: Order Comment: Speci men Type: BLOOD SPECIMENOrdering Facility: [facility] Address: [address] [place] [address] Performed By: #### 2 4323-8 ####[facility] LABIA [id number] [place] [address] [place] Creatinine and Glomerular filtration rate.predicted panel (S/P/Bld) 62 mL/min/1.73m??? Normal >=60 [facility] Comment on above: Order Comment: Speci men Type: BLOOD SPECIMENOrdering Facility: [facility] Address: [address] [place] [address] Result Comment: Jamila mated Glomerular Filtration Rate [...] actual GFR. Performed By: #### 2 4323-8 ####[facility] LABIA [id number] [place] [address] [place] Glucose [Mass/Vol] 105 mg/dL High 74-99 [facility] Comment on above: Order Comment: Speci men Type: BLOOD SPECIMENOrdering Facility: [facility] Address: [address] [place] [address] Result Comment: The [place] Diabetes Association (ADA) provides guidance for cutoff [...] Standards of Medical Care in Diabetes 2016, [place] Diabetes Association. Diabetes Care. 2016.39(Suppl 1). Performed By: #### 2 4323-8 ####[facility] LABIA [id number] [place] [address] [place] Potassium [Moles/Vol] 4.8 mmol/L Normal 3.7-5.1 [facility] Comment on above: Order Comment: Homeri men Type: BLOOD SPECIMENOrdering Facility: [facility] Address: [address] [place] [address] Performed By: #### 2 4323-8 ####[facility] LABIA [id number] [place] [address] [place] Protein [Mass/Vol] 7.2 g/dL Normal 6.3-8.0 [facility] Comment on above: Order Comment: Homeri men Type: BLOOD SPECIMENOrdering Facility: [facility] Address: [address] [id number] Performed By: #### 2 4323-8 ####[facility] LABCLIA [id number] [place] [id number] [place] Sodium [Moles/Vol] 141 mmol/L Normal 136-144 [facility] Comment on above: Order Comment: Speci men Type: BLOOD SPECIMENOrdering Facility: [facility] Address: [address] [place] [address] Performed By: #### 2 4323-8 ####[facility] LABCLIA [id number] [place] [address] [place] Urea nitrogen [Mass/Vol] 25 mg/dL High 9-24 [facility] Comment on above: Order Comment: Speci men Type: BLOOD SPECIMENOrdering Facility: [facility] Address: [address] [place] [address] Performed By: #### 2 4323-8 ####[facility] LABCLIA [id number] [place] [id number] [place] ECG COMPLETEon 11-03-2023 ECG COMPLETE Ventricular Rate : 9 7 BPM QRS Duration : 80 ms Q-T Interval : 364 ms QTC Calculation(Bazett) : 462 ms Calculated R [place] : -36 degrees Calculated T [place] : 5 degrees ATRIAL FIBRILLATION LEFT AXIS DEVIATION LOW VOLTAGE ANTEROSEPTAL MYOCARDIAL INFARCTION , AGE UNDETERMINED ABNORMAL ECG Confirmed by MD NIVIA, PhD, AGGIE ([id number]) on 11/18/2023 5:00:43 PM NAME : SUKHDEEP GAMINO PID : [id number] : 1960 Gender : Male Race : Unknown ORD : [id number] Procedure Date : Nov 03 2023 15:54:05 Edit Date : Nov 18 2023 17:00:49 Diagnosis: ATRIAL FIBRILLATION LEFT AXIS DEVIATION LOW VOLTAGE ANTEROSEPTAL MYOCARDIAL INFARCTION , AGE UNDETERMINED ABNORMAL ECG Confirmed by MD NIVIA, PhD, AGGIE ([id number]) on 11/18/2023 5:00:43 PM Test Reason : Location : [facility] : [facility] Overread By : MD NIVIA, PhD,AGGIE Edited By : MD NIVIA, PhD,AGGIE Referred By : ROXANA BAH Acquired by : NIELS MARQUEZ [facility] ECHOon 11-03-2023 Echocardiography Echocardiography Rep ort: Transthoracic Echo [facility] J35 Date of service: 11/03/2023 3:14:37 PM MEDICAL DIRECTOR Ordering physician: ROXANA BAH Indication: Pre-op non-cardiac, [...] * * Final * * * CC [facility] Image : [id number] [employer]IS[employer] Normal [facility] HISTORY PHYSICALon HISTORY PHYSICAL HNO ID: [id number] Author: HAILY NUNEZ PA-C Service: ? Author Type: Physician Contract Clerk Type: H&P Filed: 11/04/2023 12:33 Note Text: [...] any new or worsening cardiac symptoms. Follows coordinating producer in [place] last OV 01/2023. Reports compliance to medication. Denies any history of stents, CABG, reports [facility] x3, most recent ~2018. Recent cardiac testing . -IN Cardiac Perfusion Test 11/03/2023: negative for ischemia [...] Pravastatin Paroxysmal atrial fibrillation (HCC) Assessment: Follows coordinating producer Dr. Lozano , last OV 01/2023. Reports [...] have a large neck STOP-Bang Score: 3 [id number] Score: Age: <65 Sex: male CHF history: Yes Hypertension history: Yes Stroke/TIA/thromboembolism history: No Vascular disease history: Yes Diabetes history: No [id number] Score: 3 ARISCAT Score: Age: 51-80 Preoperative [...] LAPAROSCOPIC RE (more content not included)... Normal [facility] CARDIAC PERF STRESS/PHARM on 11-03-2023 IN CARDIAC PERF STRESS/PHARM * * *Final Report* * * DATE OF EXAM: Nov 03 2023 11:05AM [facility] 0006 - IN CARDIAC PERF STRESS/PHARM / PROCEDURE REASON: Malignant neoplasm of prostate (HCC) * * * * Physician Interpretation * * * * Stress Freight Weigher Report: [facility] ANALILIA-2 Date of service: 11/03/2023 9:29:00 [...] later. See administered radiotracer and doses below. [facility] Date of service: 11/03/2023 9:29:00 AM [...] * * * Final * * * [facility] Report: [facility] Date of service: 11/03/2023 9:29:00 AM [facility] interpreting physician: Prasanna Lin MD PATIENT: Name: SUKHDEEP GAMINO Age: 62 years Gender: M 1. Incidental Findings from limited non-diagnostic CTAC: - Coronary calcifications visualized. * * * Final * * * Stress ECG Report: [place] [address] Date of service: 11/03/2023 9:29:00 AM Ordering physician: ROXANA BAH case specialist: Angela Duarte MS, CEP Contract Clerk: Maisha Sesay Fellow: Jorge L Mckeon MD [...] 150/84 mmHg. The double product achieved was 11421. Medications: Last Used COREG 3 Hours CARDIZ (more content not included)... Normal [facility] NM Heart Perfusion W stress and W radionuclide Yogi 11-03-2023 [facility] PT panel Coag (PPP)on 2023 INR Coag (PPP) [Relative time] 1.3 {INR} Normal 0.9-1.3 [facility] Comment on above: Order Comment: Speci men Type: BLOOD SPECIMENOrdering Facility: [facility] Address: [address] [place] [address] Result Comment: Tiffani min K Antagonist (VKA) Therapeutic Range: INR 2 to 3 (Target INR of 2.5) Note: For patients treated with VKA drugs, such as warfarin, the [place] College of Chest Physicians 2012 Guideline recommends [...] Chest 2012, 141:7S-47S Ezekiel RA, et al. [facility] 2017, 70: 252-289 Performed By: #### 1 4979-9, 83386-5 ####[facility] LABCLIA [id number] [place] [address] [place] PT Coag (PPP) [Time] 13.2 s High 9.7-13.0 [facility] Comment on above: Order Comment: Speci men Type: BLOOD SPECIMENOrdering Facility: [facility] Address: [address] [place] [address] Performed By: #### 1 4979-9, 48077-4 ####[facility] LABCLIA [id number] [place] [address] [place] TYPE AND SCREEN,30 DAYon ABO A Normal [facility] Comment on above: Order Comment: Speci men Type: BLOOD SPECIMENOrdering Facility: [facility] Address: [address] [place] [address] Performed By: #### T SCR30 ####[facility] BLOOD BANKCLIA [id number] [address] [place] HISTORICAL AB SCR STATUS Negative Normal [facility] Comment on above: Order Comment: Speci men Type: BLOOD SPECIMENOrdering Facility: [facility] Address: [address] [place] [address] Performed By: #### T SCR30 ####CC MAIN BLOOD BANKIA [id number] [place] [address] [place] Rh Nom (Bld) Positive Normal [facility] Comment on above: Order Comment: Speci men Type: BLOOD SPECIMENOrdering Facility: [facility] Address: [address] [place] [address] Performed By: #### T SCR30 ####CC MAIN BLOOD BANKIA [id number] [place] [address] [place] URINALYSIS, REFLEX MICROSCOP ICon 11-03-2023 Bacteria LM.HPF (Urine sed) [#/Area] Negative Negative /HPF [facility] Bilirubin Ql (U) Negative Negative [facility] Clarity (Unsp spec) Clear Clear [facility] Color (U) Yellow Yellow [facility] Epithelial cells LM.HPF (Urine sed) [#/Area] None Seen [facility] Glucose Test strip (U) [Mass/Vol] Negative Negative [facility] Hemoglobin Ql (U) Negative Negative [facility] Hyaline casts (Urine sed) [#/Area] 1-3 /LPF Abnormal 0 /LPF [facility] Ketones Ql (U) Negative Negative [facility] Leukocyte esterase Test strip Ql (U) Trace Abnormal Negative [facility] Nitrite Ql (U) Negative Negative [facility] pH (U) 5.5 [pH] <8.5 [facility] Protein (U) [Mass/Vol] Negative Negative [facility] RBC LM.HPF (Urine sed) [#/Area] 0-2 /HPF 0-2 /HPF [facility] Specific gravity (U) [Rel density] 1.023 1.005 - 1.030 [facility] Urobilinogen Ql (U) 0.2 EU/dL 0.2-1.0 EU/dL [facility] WBC LM.HPF (Urine sed) [#/Area] 0-5 /HPF 0-5 /HPF [facility] Bacteria LM.HPF (Urine sed) [#/Area] Negative Normal Negative [facility] Comment on above: Order Comment: Speci men Type: URINE SPECIMENOrdering Facility: [facility] Address: [address] [place] [address] Performed By: #### L [id number] ####[facility] LABCLIA [id number] [place] [address] [place] Bilirubin Ql (U) Negative Normal Negative [facility] Comment on above: Order Comment: Speci men Type: URINE SPECIMENOrdering Facility: [facility] Address: [address] [place] [address] Performed By: #### L [id number] ####[facility] LABCLIA [id number] [place] [address] [place] Clarity (Unsp spec) Clear Normal Clear [facility] Comment on above: Order Comment: Speci men Type: URINE SPECIMENOrdering Facility: [facility] Address: [address] [place] [address] Performed By: #### L [id number] ####[facility] LABCLIA [id number] [place] [address] [place] Color (U) Yellow Normal Yellow [facility] Comment on above: Order Comment: Speci men Type: URINE SPECIMENOrdering Facility: [facility] [facility] Address: [address] [place] [address] Performed By: #### L [id number] ####[facility] LABIA [id number] [place] [address] [place] Epithelial cells LM.HPF (Urine sed) [#/Area] None Seen Normal [facility] Comment on above: Order Comment: Speci men Type: URINE SPECIMENOrdering Facility: [facility] Address: [address] [place] [address] Performed By: #### L [id number] ####[facility] LABCLIA [id number] [place] [address] [place] Glucose Test strip (U) [Mass/Vol] Negative Normal Negative [facility] Comment on above: Order Comment: Speci men Type: URINE SPECIMENOrdering Facility: [facility] Address: [address] [place] [address] Performed By: #### L [id number] ####[facility] LABCLIA [id number] [place] [address] [place] Hemoglobin Ql (U) Negative Normal Negative [facility] Comment on above: Order Comment: Speci men Type: URINE SPECIMENOrdering Facility: [facility] Address: [address] [place] [address] Performed By: #### L [id number] ####[facility] LABCLIA [id number] [place] [address] [place] Hyaline casts (Urine sed) [#/Area] 1-3 /LPF Abnormal 0 /LPF [facility] Comment on above: Order Comment: Speci men Type: URINE SPECIMENOrdering Facility: [facility] Address: [address] [place] [address] Performed By: #### L [id number] ####[facility] LABCLIA [id number] [place] [address] [place] Ketones Ql (U) Negative Normal Negative [facility] Comment on above: Order Comment: Speci men Type: URINE SPECIMENOrdering Facility: [facility] Address: [address] [place] [address] Performed By: #### L [id number] ####[facility] LABCLIA [id number] [place] [address] [place] Leukocyte esterase Test strip Ql (U) Trace Abnormal Negative [facility] Comment on above: Order Comment: Speci men Type: URINE SPECIMENOrdering Facility: [facility] Address: [address] [place] [address] Performed By: #### L [id number] ####[facility] LABCLIA [id number] [place] [address] [place] Nitrite Ql (U) Negative Normal Negative [facility] Comment on above: Order Comment: Speci men Type: URINE SPECIMENOrdering Facility: [facility] Address: [address] [place] [address] Performed By: #### L [id number] ####[facility] LABCLIA [id number] [place] [address] [place] pH (U) 5.5 [pH] Normal <8.5 [facility] Comment on above: Order Comment: Speci men Type: URINE SPECIMENOrdering Facility: [facility] Address: [address] [place] [address] Performed By: #### L [id number] ####[facility] LABIA [id number] [place] [address] [place] Protein (U) [Mass/Vol] Negative Normal Negative [facility] Comment on above: Order Comment: Speci men Type: URINE SPECIMENOrdering Facility: [facility] Address: [address] [place] [address] Performed By: #### L [id number] ####[facility] LABIA [id number] [place] [address] [place] RBC LM.HPF (Urine sed) [#/Area] 0-2 /HPF Normal 0-2 /HPF [facility] Comment on above: Order Comment: Speci men Type: URINE SPECIMENOrdering Facility: [facility] Address: [address] [place] [address] Performed By: #### L [id number] ####[facility] LABCLIA [id number] [place] [address] [place] Specific gravity (U) [Rel density] 1.023 Normal 1.005-1.030 [facility] Comment on above: Order Comment: Speci men Type: URINE SPECIMENOrdering Facility: [facility] Address: [address] [place] [address] Performed By: #### L [id number] ####[facility] LABCLIA [id number] [place] [address] [place] Urobilinogen Ql (U) 0.2 EU/dL Normal 0.2-1.0 EU/dL [facility] Comment on above: Order Comment: Speci men Type: URINE SPECIMENOrdering Facility: [facility] Address: [address] [place] [address] Performed By: #### L [id number] ####[facility] [id number] [place] [address] [place] WBC LM.HPF (Urine sed) [#/Area] 0-5 /HPF Normal 0-5 /HPF [facility] Comment on above: Order Comment: Speci men Type: URINE SPECIMENOrdering Facility: [facility] Address: [address] [place] [address] Performed By: #### L [id number] ####[facility] [id number] [place] [address] [place] aPTT PPPon 11-03-2023 aPTT Coag (PPP) [Time] 27.4 s Normal 23.0-32.4 [facility] Comment on above: Order Comment: Speci men Type: BLOOD SPECIMENOrdering Facility: [facility] Address: [address] [place] [address] Performed By: #### 1 4979-9, 15339-5 ####[facility] [id number] [place] [address] [place] CNOVon 10-02-2023 CNOV Office Visit (UROLMN ) SUKHDEEP GAMINO ([id number]) 1960 M Date Time Provider Department 10/02/23 [...] PSA 7.8. Underwent prostate biopsy that demonstrated [place] 4+5=9, GG5, 90% highest involvement. Bone scan [...] very high risk prostate cancer (PSA 7.8, [place] 4+6=9, 90% high involvement) with negative bone [...] CA Plan : above Roxana Bah MD Party Host/Hostess: Orders ID: [id number] 11/03/2023 12:00 AM Author: JEROME, PROVIDER Signed by [facility] PROVIDER on 11/03/2023 at 12:00 AM Document text: Referring Provider: CESIA WEEKS [[id number]] Allergies As of Date: 10/02/2023 (Not on [...] 1 caps (more content not included)... Normal [facility] URINALYSIS, REFLEX MICROSCOP ICon 10-02-2023 Bilirubin Ql (U) Negative Negative [facility] Clarity (Unsp spec) Clear Clear [facility] Color (U) Light Yellow Yellow [facility] Glucose Test strip (U) [Mass/Vol] Negative Trace, Negative [facility] Hemoglobin Ql (U) Negative Negative, Trace [facility] Ketones Ql (U) Negative Negative, Trace [facility] Leukocyte esterase Test strip Ql (U) Negative Negative, 25 Brandon/uL [facility] Nitrite Ql (U) Negative Negative [facility] pH (U) 5.0 [pH] 5.0 - 8.0 [facility] Protein (U) [Mass/Vol] Negative Trace, Negative [facility] Specific gravity (U) [Rel density] 1.027 1.005 - 1.030 [facility] Urobilinogen Ql (U) Normal Normal [facility] Bilirubin Ql (U) Negative Normal Negative [facility] Comment on above: Order Comment: Speci men Type: URINE SPECIMENOrdering Facility: [facility] Address: [address] [place] [address] Performed By: #### L [id number] ####[facility] LABCLIA [id number] [place] [address] [place] Clarity (Unsp spec) Clear Normal Clear [facility] Comment on above: Order Comment: Speci men Type: URINE SPECIMENOrdering Facility: [facility] Address: [address] [place] [address] Performed By: #### L [id number] ####[facility] LABCLIA [id number] [place] [address] [place] Color (U) Light Yellow Normal Yellow [facility] Comment on above: Order Comment: Speci men Type: URINE SPECIMENOrdering Facility: [facility] Address: [address] [place] [address] Performed By: #### L [id number] ####[facility] LABCLIA [id number] [place] [address] [place] Glucose Test strip (U) [Mass/Vol] Negative Normal Trace, Negative [facility] Comment on above: Order Comment: Speci men Type: URINE SPECIMENOrdering Facility: [facility] Address: [address] [place] [address] Performed By: #### L [id number] ####[facility] LABCLIA [id number] [place] [address] [place] Hemoglobin Ql (U) Negative Normal Negative, Trace [facility] Comment on above: Order Comment: Speci men Type: URINE SPECIMENOrdering Facility: [facility] Address: [address] [place] [id number] Performed By: #### L [id number] ####[facility] LABCLIA [id number] [place] [address] [place] Ketones Ql (U) Negative Normal Negative, Trace [facility] Comment on above: Order Comment: Speci men Type: URINE SPECIMENOrdering Facility: [facility] Address: [address] [place] [address] Performed By: #### L [id number] ####[facility] LABCLIA [id number] [place] [address] [place] Leukocyte esterase Test strip Ql (U) Negative Normal Negative, 25 Brandon/uL [facility] Comment on above: Order Comment: Speci men Type: URINE SPECIMENOrdering Facility: [facility] Address: [address] [place] [address] Performed By: #### L [id number] ####[facility] LABCLIA [id number] [place] [address] [place] Nitrite Ql (U) Negative Normal Negative [facility] Comment on above: Order Comment: Speci men Type: URINE SPECIMENOrdering Facility: [facility] Address: [address] [place] [address] Performed By: #### L [id number] ####[facility] LABIA [id number] [place] [address] [place] pH (U) 5.0 [pH] Normal 5.0-8.0 [facility] Comment on above: Order Comment: Speci men Type: URINE SPECIMENOrdering Facility: [facility] Address: [address] [place] [address] Performed By: #### L [id number] ####[facility] LABIA [id number] [place] [address] [place] Protein (U) [Mass/Vol] Negative Normal Trace, Negative [facility] Comment on above: Order Comment: Speci men Type: URINE SPECIMENOrdering Facility: [facility] Address: [address] [place] [address] Performed By: #### L [id number] ####[facility] LABIA [id number] [place] [address] [place] Specific gravity (U) [Rel density] 1.027 Normal 1.005-1.030 [facility] Comment on above: Order Comment: Speci men Type: URINE SPECIMENOrdering Facility: [facility] Address: [address] [place] [address] Performed By: #### L [id number] ####[facility] LABCLIA [id number] [place] [address] [place] Urobilinogen Ql (U) Normal Normal Normal [facility] Comment on above: Order Comment: Speci men Type: URINE SPECIMENOrdering Facility: [facility] Address: [address] [place] [address] Performed By: #### L [id number] ####[facility] LABCLIA [id number] [place] [address] [place] RAD - Nuclear Medicine Repor ton 09-15-2023 RAD - Nuclear Medicine Report [id number]#1.00TIFF Normal [facility] PET psma initial tx sb-mton 09-14-2023 PET psma initial tx sb-mt [facility] [place] [address] Nuclear Medicine Report Signed Patient: Sukhdeep Gamino MR#: [id number] 5 : 1960 Acct:[id number] Age/Sex: 62 / M ADM Date: 09/14/23 Loc: Room: Type: [facility] Attending Dr: Cesia Weeks MD Copies to: [...] Urrutia Jr., Yamilka09/14/2023 3:06 PM Dictation Location: [place] [address] Transcribed By: KIERSTEN 09/14/23 1506 Dictated By: Shahriar Urrutia Jr, DO 09/14/23 1456 Signed By: 09/14/23 1506 [facility] RAD - Nuclear Medicine Repor ton 09-03-2023 RAD - Nuclear Medicine Report [id number]#1.00TIFF [facility]23 [facility] Telephone (NCCAP) SUKHDEEP GAMINO ([id number]) 1960 Date Time Provider Department 09/02/23 CESIA WEEKS During your visit today, we recorded the following information about you: María Simon 09/02/2023 8:33 AM Signed This form is used for MAIN CAMPUS APPOINTMENTS ONLY. Is this request for a [place] PET scan appointment? Yes: Veneer Trimmer: María Retana Requesting Person Dr Weeks: Area Code + Phone/Pager: [phone] Who do we call to schedule this appointment? Other Contact: External Order From [facility] please route to Regine Marcus in [place] for scheduleing pt is approved through [facility] Requesting Staff Dr weeks Area Code + Phone/Pager: [phone] PET Orders (A delay in scheduling will result if the orders are not present at time of review): External. Has the External Clinical Order been scanned into [facility]? 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 ROUTE TO SCHEDULERS POOL P PET ASSOCIATE PROFESSOR OF GEOGRAPHY MC or P NM SPECIAL STUDIES MC Allergies As of Date: 09/02/2023 (Not on File) Date Reviewed: Never Reviewed Reason for Visit: Nm Pet Request [[id number]] Problem List As Of Date: 09/02/2023 (None) Encounter Status:Closed by MARÍA SIMON on 09/09/23 Normal [facility] Physician Orderon 09-01-2023 Physician Order [id number]#1.00TIFF Normal [facility] Ambulatory Visit Summaryon 0 08-31-2023 Ambulatory Visit [...] Where: [facility] [address] [place] [address]- [phone] Medications What How Much When Why Instructions [...] fo (more content not included)... Normal Nolasco [facility] Patient Educationon 08-31-19 24 Patient Education Oncology [...] under a microscope. This is called the Christnie score and the total score can range from 6?10, indicating how likely it is that the cancer will spread (metastasize) to other parts of the body. The higher the score, the greater the likelihood that the cancer will spread. ? [place] 6 or lower: This indicates that the [...] be (more content not included)... Normal Gaurav [facility] Urology Office/Clinic Noteon 08-31-2023 Urology Office/Clinic [...] cons of each therapy today, and the [employer] prostate cancer book was provided. Explained that [...] Hernández, URL [facility] [address] , [place] [address]- [phone] Additional Instructions: f/u pending results of PSMA [...] mRNA BNT-162b2 vax (more content not included)... [facility] Comment on above: Result Comment: Elec tronically Signed By: Cesia WEEKS MD\.br\Date and Time Signed: 08/31/23 10:34 EST\.br\Electronically Co-Signed By: Radha Balderas\.br\Date and Time Co-Signed: 08/31/23 10:25 EST [facility] 08-28-2023 Lab Reports [id number]#1.00TIFF [facility] Consent for Procedure/Surger yon 08-26-2023 Consent for Procedure/Surgery [id number]#1.00TIFF [facility] Ambulatory Visit Summaryon 0 08-25-2023 Ambulatory [...] GARRISON, Cesia Hernández Where: [facility] Roel 08-25-2023 L Specimen: [id number] Re ceived: 08/26/23 Status: RSOA [facility] Num: [id number] Spec Type: Surgical Subm Dr: Cesia Weeks [...] Account Attending Physician Sukhdeep Gamino 62/M [place] [id number] Cesia Weeks MD SPEC NUM: [id number] RECD: 08/26/23 STATUS: ROSA [facility] NUM: [id number] BRIDGETTE: 08/25/23-[address]: Cesia Weeks MD ENTERED: 08/26/[address] [facility] [address]: SPEC TYPE: Surgical DEPT: S [facility] BY: [id number] ORDERED: HE/24, Gross/Micro L4/12 ORDERED: HE/24, Gross/Micro L4/12, USS/24 Pathological Diagnosis A. Prostate, left base, needle core biopsies: - Invasive prostate adenocarcinoma, [place] pattern 3+5, grade group 4. - Adenocarcinoma [...] group 5 Specimen: [id number] Received: 08/26/23 Status: [facility] Num: [id number] Spec Type: Surgical Subm Dr: Cesia Weeks [...] Procedures: HE/, Gross/Micro L4/12 Patient: Sukhdeep Gamino [id number] (Continued) Specimen: [id number] Received: 08/26/23 (Continued) Pathological Diagnosis (Continued) Signed (signature on file) Nani Ambrocio MD 08/27/23 0959 Specimen: [id number] Received: 08/26/23 Status: ROSA Woodard Num: [id number] Spec Type: Surgical Subm Dr: Cesia Weeks [...] Procedures: HE/24, Gross/Micro L4/12 Patient: Sukhdeep Gamino [id number] (Continued) Specimen: [id number] Received: 08/26/23 (Continued) Pathological Diagnosis (Continued) - Adenocarcinoma involves 50% of the biopsy tissue. - Negative for lymphovascular and perineural invasion. D. Prostate, left lateral mid, needle core biopsy: - Invasive prostate adenocarcinoma, [place] pattern 4+5, minor 3, grade group 5 - Adenocarcinoma involves 60% of the biopsy tissue. - Negative for lymphovascular and perineural invasion E. Prostate, left apex, needle core biopsy: - Invasive prostate adenocarcinoma, [place] pattern 4+3, grade group 3 - Adenocarcinoma involves 60% of the biopsy tissue. - Negative for lymphovascular and perineural invasion F. Prostate, left lateral apex, needle core biopsy: - Invasive prostate adenocarcinoma Christine pattern 4+4, Minor 5, grade group 4 - Adenocarcinoma involves 40% of the biopsy tissue. - Negative for lymphovascular and perineural invasion. G. Prostate, (more content not included)... [facility] Patient Educationon 08-25-19 Patient Education Oncology Transrectal [...] near your rectum, especially while sitting. ? [place]-colored urine due to small amounts of blood in your urine. ? A burning feeling while urinating. ? Blood in your stool (feces) or bleeding from your rectum. ? Blood in your semen. Follow these instructions at home: Medicines ? Take lwux-wsl-kecmpct and prescription medicines only as told by [...] provider. Document Revised: 01/13/2022 Document Reviewed: 01/13/2022 [employer] Patient Education ? 2022 [employer] Hieu. Mayela Nolasco [facility] Urology Office/Clinic Noteon 08-25-2023 Urology Office/Clinic Note [...] without complications. [facility] [place] [facility]. -F/u scheduled 09/11/23 to review path report [...] [facility] [address] , [place] [address] [phone] Additional Instructions: review path on 09/11/23 Patient [...] inhalation powd (more content not included)... Normal [facility] Comment on above: Result Comment: Elec tronically Signed By: Cesia WEEKS MD\.br\Date and Time Signed: 08/25/23 15:49 EST\.br\Electronically Co-Signed By: Radha Balderas\.br\Date and Time Co-Signed: 08/25/23 15:48 EST [facility] 08-20-2023 Lab Reports [id number]#1.00TIFF [facility] Patient Correspondenceon Patient Correspondence [id number]#1.00TIFF Normal [facility] Physician Referralon 024 Physician Referral [id number]#1.00TIFF [facility] Screenson 08-11-2023 Screens [id number]#1.00TIFF [facility] Ambulatory Visit Summaryon 0 08-10-2023 Ambulatory Visit Summary SUKHDEEP GAMINO :1960 Visit Date:08/10/2023 Ambulatory Visit Instructions Your Diagnosis Elevated PSA BPH with urinary obstruction A-fib Inguinal hernia Tests Performed Urnls Dip Stick Auto w/o Microscopy POC 97776 Your Care Team Attending Physician - MICKY [...] TRUS/bx Where: [facility] [address], [place] [address] [phone] Medications What How Much When Instructions Unchanged [...] Urnls Dip Stick Auto w/o Microscopy POC 89261 (08/10/2023) Bilirubin Urine Dipstick - Negative Blood Urine Dipstick - Negative Glucose Urine Dipstick - Negative Ketones Urine Dipstick - Negative Leukocytes Urine Dipstick - Negative Nitrite Urine Dipstick - Negative Protein Urine Dipstick - Negative Specific [place] Urine Dipstick - 1.025 Urine Appearance Urine [...] near your rectum, especially while sitting. ? [place]-colored urine due to small amounts of blood in your urine. ? A burning feeling while urinating. ? Blood in your stool (feces) or bleeding from your rectum. ? Blood in your semen. Follow these instructions at home: Medicines ? Take znwz-mzl-pfcracm and prescription medicines only as told by [...] uri (more content not included)... Normal [facility] Patient Educationon 08-10-19 Patient Education Oncology [...] near your rectum, especially while sitting. ? [place]-colored urine due to small amounts of blood in your urine. ? A burning feeling while urinating. ? Blood in your stool (feces) or bleeding from your rectum. ? Blood in your semen. Follow these instructions at home: Medicines ? Take zlxf-fwx-diicryq and prescription medicines only as told by [...] provider. Document Revised: 01/13/2022 Document Reviewed: 01/13/2022 [employer] Patient Education ? 2022 [employer] Transrectal Ultrasound-Guided Prostate Biopsy A transrectal [...] including vitamins, herbs, eye drops, creams, and jrbb-rge-mmggvck medicines. ? Any problems you or family [...] as aspirin (more content not included)... Normal [facility] Lab Reportson 07-30-2023 Lab Reports [id number]#1.00TIFF Normal [facility] Lab Reportson 07-29-2023 Lab Reports [id number]#1.00TIFF Normal [facility] Office Visiton 01-02-2023 Follow-up visit [id number] Sukhdeep Gamino 1960 M Date Provider Department Center 01/02/2023 [facility] No family history on file Level of Service:79858 [place] OFFICE/OUTPATIENT ESTABLISHED LOW [facility] 20-29 MIN Reason for Visit and Comments: Atrial Fibrillation [80] Coronary Artery Disease [187] Hypertension [227197] Congestive Heart Failure [127] Normal [facility] XR LSPINE MIN 4 VIEWSon 05-04 XR [...] by: ALL RICARDO Date: 2022-05-26 19:58 Normal [facility] Basic metabolic 2000 panelon 06-27-2021 Anion gap [Moles/Vol] 8 mmol/L Normal 6-18 [facility] Comment on above: Performed By: #### 2 4321-2 #### [facility] ([facility]) [facility] [address] [place] [address] Calcium [Mass/Vol] 8.7 mg/dL Low 8.9-10.3 [facility] Comment on above: Performed By: #### 2 4321-2 #### [facility] [address] [place] [address] Chloride [Moles/Vol] 106 mmol/L Normal 98-107 [facility] Comment on above: Performed By: #### 2 4321-2 #### [facility] [address] [place] [address] CO2 [Moles/Vol] 26 mmol/L Normal 22-32 [facility] Comment on above: Performed By: #### 2 4321-2 #### [facility] [address] [place] [address] Creatinine [Mass/Vol] 1.05 mg/dL Normal 0.60-1.30 [facility] Comment on above: Performed By: #### 2 4321-2 #### [facility] [address] [place] [address] GFR/1.73 sq M.predicted among non-blacks MDRD (S/P/Bld) [Vol rate/Area] 76 mL/min/{1.73_m2} Normal [facility] Comment on above: Performed By: #### 2 4321-2 #### [facility] [address] [place] [address] Glucose [Mass/Vol] 126 mg/dL High 70-99 [facility] Comment on above: Performed By: #### 2 4321-2 #### [facility] [address] [place] [address] Potassium [Moles/Vol] 4.3 mmol/L Normal 3.6-5.1 [facility] Comment on above: Performed By: #### 2 4321-2 #### [facility] [address] [place] [address] Sodium [Moles/Vol] 140 mmol/L Normal 136-145 [facility] Comment on above: Performed By: #### 2 4321-2 #### [facility] [address] [place] [address] Urea nitrogen [Mass/Vol] 16 mg/dL Normal 8-20 [facility] Comment on above: Performed By: #### 2 4321-2 #### [facility] [address] [place] [address], [place] [address] Urea nitrogen/Creatinine [Mass ratio] 15.2 mg/mg Normal 12.0-20.0 [facility] Comment on above: Performed By: #### 2 4321-2 #### [facility] [address] [place] [address], [place] [address] Hemogram and platelets WO di fferential panel (Bld)on 06-27-2021 Basophils (Bld) [#/Vol] 0.00 10*3/uL Normal 0.00-0.20 [facility] Comment on above: Performed By: #### 2 4317-0 #### [facility] [address] [place] [address]71 Basophils/100 WBC (Bld) 0.1 % Normal 0.0-2.0 [facility] Comment on above: Performed By: #### 2 4317-0 #### [facility] [address] [place] [address], [place] [address] Eosinophils (Bld) [#/Vol] 0.00 10*3/uL Normal 0.00-0.70 [facility] Comment on above: Performed By: #### 2 4317-0 #### [facility] [address] [place] [address] Eosinophils/100 WBC (Bld) 0.0 % Normal 0.0-7.0 [facility] Comment on above: Performed By: #### 2 4317-0 #### [facility] [address] [place] [address] Erythrocyte distribution width (RBC) [Ratio] 13.2 % Normal 11.0-14.8 [facility] Comment on above: Performed By: #### 2 4317-0 #### [facility] [address] [place] [address] Hematocrit (Bld) [Volume fraction] 36.3 % Low 39.0-49.0 [facility] Comment on above: Performed By: #### 2 4317-0 #### [facility] [address] [place] [address] Hemoglobin (Bld) [Mass/Vol] 12.2 g/dL Low 13.5-17.5 [facility] Comment on above: Performed By: #### 2 4317-0 #### [facility] [address] [place] [address] Lymphocytes (Bld) [#/Vol] 0.70 10*3/uL Low 1.00-4.80 [facility] Comment on above: Performed By: #### 2 4317-0 #### [facility] [address] [place] [address] Lymphocytes/100 WBC (Bld) 7.3 % Low 22.0-44.0 [facility] Comment on above: Performed By: #### 2 4317-0 #### [facility] [address] [place] [address]29 MCH 30.0 pcg Normal 27.0-34.0 [facility] Comment on above: Performed By: #### 2 4317-0 #### [facility] [address] [place] [address] 13987 MCHC (RBC) [Mass/Vol] 33.5 g/dL Normal 32.0-36.0 [facility] Comment on above: Performed By: #### 2 4317-0 #### [facility] [address] [place] [address]11 MCV (RBC) [Entitic vol] 89.5 fL Normal 80.0-97.0 [facility] Comment on above: Performed By: #### 2 4317-0 #### [facility] [address] [place] [address]3906 Monocytes (Bld) [#/Vol] 1.00 10*3/uL High 0.00-0.90 [facility] Comment on above: Performed By: #### 2 4317-0 #### [facility] [address] [place] [address] 92679 Monocytes/100 WBC (Bld) 11.6 % Normal 0.0-12.0 [facility] Comment on above: Performed By: #### 2 4317-0 #### [facility] [address] [place] [address] Neutrophils Absolute 7.30 K/mcL Normal 1.80-7.70 [facility] Comment on above: Performed By: #### 2 4317-0 #### [facility] [address] [place] [address] 18397 Neutrophils/100 WBC (Bld) 81.0 % High 40.0-70.0 [facility] Comment on above: Performed By: #### 2 4317-0 #### [facility] [address] [place] [address] 71545 Platelet mean volume (Bld) [Entitic vol] 7.0 fL Normal 6.2-12.1 [facility] Comment on above: Performed By: #### 2 4317-0 #### [facility] [address] [place] [address] Platelets (Bld) [#/Vol] 195 10*3/uL Normal 142-424 [facility] Comment on above: Performed By: #### 2 4317-0 #### [facility] [address] [place] [address] 53345 RBC (Bld) [#/Vol] 4.06 10*6/uL Low 4.30-5.70 [facility] Comment on above: Performed By: #### 2 4317-0 #### [facility] [address] [place] [address] WBC (Bld) [#/Vol] 9.0 10*3/uL Normal 4.6-10.2 [facility] Comment on above: Performed By: #### 2 4317-0 #### [facility] [address] [place] [address] 99835 PT Coag (PPP) [Time]on 06-27 INR Coag (PPP) [Relative time] 1.2 {INR} Normal <=5.0 [facility] Comment on above: Result Comment: The recommended therapeutic INR range for most cardiac indications is 2.0-3.0 For high intensity therapy (i.e. mechanical heart valves), the recommended range is 2.5-3.5 Performed By: #### 2 4321-2 #### [facility] [address] [place] [address] Prothrombin timeon PT Coag (PPP) [Time] 15.0 s High 11.9-14.7 [facility] Comment on above: Performed By: #### 2 4321-2 #### [facility] [address] [place] [address] Glucose Auto test strip (Bld ) [Mass/Vol]on 06-26-2021 Glucose [Mass/Vol] 82 mg/dL Normal 70-99 [facility] Comment on above: Performed By: #### 2 340-8 #### [facility] [address] [place] [address] Glucose [Mass/Vol] 146 mg/dL High 70-99 [facility] Comment on above: Performed By: #### 2 340-8 #### [facility] [address] [place] [address] 50433 PT Coag (PPP) [Time]on 06-26 INR Coag (PPP) [Relative time] 1.2 {INR} Normal <=5.0 [facility] Comment on above: Result Comment: The recommended therapeutic INR range for most cardiac indications is 2.0-3.0 For high intensity therapy (i.e. mechanical heart valves), the recommended range is 2.5-3.5 Performed By: #### 5 902-2 #### [facility] [address] [place] [address] INR Coag (PPP) [Relative time] 1.1 {INR} Normal <=5.0 [facility] Comment on above: Result Comment: The recommended therapeutic INR range for most cardiac indications is 2.0-3.0 For high intensity therapy (i.e. mechanical heart valves), the recommended range is 2.5-3.5 Performed By: #### 5 902-2 #### [facility] [address] [place] [address] 88889 Prothrombin timeon PT Coag (PPP) [Time] 14.7 s Normal 11.9-14.7 [facility] Comment on above: Performed By: #### 5 902-2 #### [facility] [address] [place] [address] 27733 PT Coag (PPP) [Time] 14.1 s Normal 11.9-14.7 [facility] Comment on above: Performed By: #### 5 902-2 #### [facility] ([facility]) [facility] [address] [place] [address] XR FLUORO UP TO 1 HOUR (STAT ISTICS)(NO REPORT)on 06-26-2021 XR FLUORO UP TO 1 HOUR (STATISTICS)(NO REPORT) This order has been auto-finalized and does not contain a result. Normal [facility] XR Fluoro Up To 1 Hour (Stat [...] Self Edit Transcribed Date: 06/26/2021 13:48 Normal [facility] Covid-19 PCR (CVDTBH)on 06-04 SARS-CoV-2 (COVID-19) RNA NANCY+probe Ql (Unsp spec) Not detected Normal NOT DETECTED [facility] Comment on above: Result Comment: This test is not yet approved or cleared by the [place] FDA. When there are no FDA-approved or cleared tests available, and other criteria are met, FDA can make tests available under an emergency access mechanism called an Emergency Use Authorization (EUA). The EUA for this test is supported by the [place] of Health and Human Service's (HHS's) declaration [...] consistent with SARS-CoV-2. Performed By: #### C [facility] #### [facility] [address] [address] [address] Grant Carrillo Basic metabolic 2000 panelon 06-03-2021 Anion gap [Moles/Vol] 9 mmol/L Normal 6-18 [facility] Comment on above: Performed By: #### 2 4321-2 #### [facility] [address] [place] [address] Calcium [Mass/Vol] 9.4 mg/dL Normal 8.9-10.3 [facility] Comment on above: Performed By: #### 2 4321-2 #### [facility] [address] [place] [address] Chloride [Moles/Vol] 105 mmol/L Normal 98-107 [facility] Comment on above: Performed By: #### 2 4321-2 #### [facility] [address] [place] [address] CO2 [Moles/Vol] 25 mmol/L Normal 22-32 [facility] Comment on above: Performed By: #### 2 4321-2 #### [facility] [address] [place] [address] Creatinine [Mass/Vol] 1.05 mg/dL Normal 0.60-1.30 [facility] Comment on above: Performed By: #### 2 4321-2 #### [facility] [address] [place] [address] GFR/1.73 sq M.predicted among non-blacks MDRD (S/P/Bld) [Vol rate/Area] 76 mL/min/{1.73_m2} Normal [facility] Comment on above: Performed By: #### 2 4321-2 #### [facility] [address] [place] [address] Glucose [Mass/Vol] 96 mg/dL Normal 70-99 [facility] Comment on above: Performed By: #### 2 4321-2 #### [facility] [address] [place] [address] 24597 Potassium [Moles/Vol] 4.4 mmol/L Normal 3.6-5.1 [facility] Comment on above: Performed By: #### 2 4321-2 #### [facility] [address] [place] [address] 58765 Sodium [Moles/Vol] 139 mmol/L Normal 136-145 [facility] Comment on above: Performed By: #### 2 4321-2 #### [facility] [address] [place] [address] 33592 Urea nitrogen [Mass/Vol] 23 mg/dL High 8-20 [facility] Comment on above: Performed By: #### 2 4321-2 #### [facility] [address] [place] [address] 87254 Urea nitrogen/Creatinine [Mass ratio] 21.9 mg/mg High 12.0-20.0 [facility] Comment on above: Performed By: #### 2 4321-2 #### [facility] [address] [place] [address]1047 Hemogram and platelets WO di fferential panel (Bld)on 06-03-2021 Basophils (Bld) [#/Vol] 0.10 10*3/uL Normal 0.00-0.20 [facility] Comment on above: Performed By: #### 2 4317-0 #### [facility] [address] [place] [address] Basophils/100 WBC (Bld) 0.5 % Normal 0.0-2.0 [facility] Comment on above: Performed By: #### 2 4317-0 #### [facility] [address] [place] [address]44 Eosinophils (Bld) [#/Vol] 0.10 10*3/uL Normal 0.00-0.70 [facility] Comment on above: Performed By: #### 2 4317-0 #### [facility] [address] [place] [address] 98212 Eosinophils/100 WBC (Bld) 0.6 % Normal 0.0-7.0 [facility] Comment on above: Performed By: #### 2 4317-0 #### [facility] [address] [place] [address] 91600 Erythrocyte distribution width (RBC) [Ratio] 13.7 % Normal 11.0-14.8 [facility] Comment on above: Performed By: #### 2 4317-0 #### [facility] [address] [place] [address] 8[address]59 Hematocrit (Bld) [Volume fraction] 45.9 % Normal 39.0-49.0 [facility] Comment on above: Performed By: #### 2 4317-0 #### [facility] [address] [place] [address]8435 Hemoglobin (Bld) [Mass/Vol] 15.1 g/dL Normal 13.5-17.5 [facility] Comment on above: Performed By: #### 2 4317-0 #### [facility] [address] [place] [address] 23981 Lymphocytes (Bld) [#/Vol] 1.20 10*3/uL Normal 1.00-4.80 [facility] Comment on above: Performed By: #### 2 4317-0 #### [facility] [address] [place] [address] Lymphocytes/100 WBC (Bld) 11.3 % Low 22.0-44.0 [facility] Comment on above: Performed By: #### 2 4317-0 #### [facility] [address] [place] [address] 75452 MCH 29.8 pcg Normal 27.0-34.0 [facility] Comment on above: Performed By: #### 2 4317-0 #### [facility] [address] [place] [address] 62720 MCHC (RBC) [Mass/Vol] 33.0 g/dL Normal 32.0-36.0 [facility] Comment on above: Performed By: #### 2 4317-0 #### [facility] [address] [place] [address] 51365 MCV (RBC) [Entitic vol] 90.4 fL Normal 80.0-97.0 [facility] Comment on above: Performed By: #### 2 4317-0 #### [facility] [address] [place] [address]20 Monocytes (Bld) [#/Vol] 1.10 10*3/uL High 0.00-0.90 [facility] Comment on above: Performed By: #### 2 4317-0 #### [facility] [address] [place] [address] 40591 Monocytes/100 WBC (Bld) 9.8 % Normal 0.0-12.0 [facility] Comment on above: Performed By: #### 2 4317-0 #### [facility] [address] [facility] [place] [address] Neutrophils Absolute 8.50 K/mcL High 1.80-7.70 [facility] Comment on above: Performed By: #### 2 4317-0 #### [facility] [address] [facility] [place] [address] Neutrophils/100 WBC (Bld) 77.8 % High 40.0-70.0 [facility] Comment on above: Performed By: #### 2 4317-0 #### [facility] [address] [place] [address] 80716 Platelet mean volume (Bld) [Entitic vol] 7.1 fL Normal 6.2-12.1 [facility] Comment on above: Performed By: #### 2 4317-0 #### [facility] [address] [place] [address] 65972 Platelets (Bld) [#/Vol] 379 10*3/uL Normal 142-424 [facility] Comment on above: Performed By: #### 2 4317-0 #### [facility] [address] [place] [address] 10671 RBC (Bld) [#/Vol] 5.08 10*6/uL Normal 4.30-5.70 [facility] Comment on above: Performed By: #### 2 4317-0 #### [facility] [address] [place] [address] 61748 WBC (Bld) [#/Vol] 10.9 10*3/uL High 4.6-10.2 [facility] Comment on above: Performed By: #### 2 4317-0 #### [facility] [address] [place] [address] Cardiovascular Lab Reporton 01-29-2021 Cardiovascular Lab Report [facility] Patient Name: Stevenson [facility] MR #: [id number] Physician: Adriana Huff, Department of M.D. Medicine Service Date: 01/28/2021 Division of Birthdate: 1960 Cardiology Room #: [facility] Cardiovascular Services [address] [place] [address] [address] [id number] Cardiovascular Laboratory Report FINAL IMPRESSIONS: 1. Bvqa-ut-ubeiqlkb single-vessel coronary artery disease. 2. Mildly reduced [...] Huff and/or a nurse practitioner in the [place] outpatient setting in the next 2 to 3 months. 5. Follow up with Dr. Fatima as scheduled; consider referral to a clip loading machine adjuster as clinically appropriate. PROCEDURES: Ultrasound-guided access to [...] right internal jugular vein was obtained. A 6-Gibraltarian 11 cm sheath was inserted without difficulty. [...] to access the left radial artery. A 6-Gibraltarian glide sheath was inserted without difficulty. Bilateral [...] Huff M.D. Date Trans: 01/29/2021 02:16 A/wai [id number] cc: Alek Fatima M.D. [address], [facility] [address] Normal [facility] Vital Signs Date Time Vital Sign Value Performing Clinician Rayi michel 05-19-2024 10:44-0400 Body temperature 97.5 [degF] MARYANNE Kamara MD Work Phone: [facility] 05-19-2024 10:44-0400 Diastolic blood pressure 92 mm[Hg] MARYANNE Kamara MD Work Phone: [facility] 05-19-2024 10:44-0400 Heart rate 80 /min MARYANNE Kamara MD Work Phone: [facility] 05-19-2024 10:44-0400 Respiratory rate 16 /min MARYANNE Kamara MD Work Phone: [facility] 05-19-2024 10:44-0400 SaO2% (BldA) [Mass fraction] 100 % MARYANNE Kamara MD Work Phone: [facility] 05-19-2024 10:44-0400 Systolic blood pressure 138 mm[Hg] MARYANNE Kamara MD Work Phone: [facility] 04-28-2024 09:51-0400 Body mass index (BMI) [Ratio] 27.33 kg/m2 MARYANNE Kamara MD Work Phone: [facility] 04-28-2024 09:51-0400 Body temperature 98.2 [degF] MARYANNE Kamara MD Work Phone: [facility] 04-28-2024 09:51-0400 Body weight 86.4 kg MARYANNE Kamara MD Work Phone: [facility] 04-28-2024 09:51-0400 Diastolic blood pressure 87 mm[Hg] MARYANNE Kamara MD Work Phone: [facility] 04-28-2024 09:51-0400 Heart rate 81 /min MARYANNE Kamara MD Work Phone: [facility] 04-28-2024 09:51-0400 Respiratory rate 16 /min MARYANNE Kamara MD Work Phone: [facility] 04-28-2024 09:51-0400 SaO2% (BldA) [Mass fraction] 100 % MARYANNE Kamara MD Work Phone: [facility] 04-28-2024 09:51-0400 Systolic blood pressure 146 mm[Hg] MARYANNE Kamara MD Work Phone: [facility] 11-03-2023 12:30-0400 Body height 177.8 cm Pacc 9 Work Phone: [facility] 11-03-2023 12:30-0400 Body temperature 97.2 [degF] Pacc 9 Work Phone: [facility] 11-03-2023 12:30-0400 Body weight 86.8 kg Pacc 9 Work Phone: [facility] 11-03-2023 12:30-0400 Diastolic blood pressure 82 mm[Hg] Pacc 9 Work Phone: [facility] 11-03-2023 12:30-0400 Heart rate 87 /min Pacc 9 Work Phone: [facility] 11-03-2023 12:30-0400 SaO2% (BldA) [Mass fraction] 99 % Pacc 9 Work Phone: [facility] 11-03-2023 12:30-0400 Systolic blood pressure 117 mm[Hg] Pacc 9 Work Phone: [facility] 10-02-2023 13:36-0500 Body height 177.8 cm Roxana Bah MD Work Phone: [facility] 10-02-2023 13:36-0500 Body weight 87.25 kg Roxana Bah MD Work Phone: [facility] 10-02-2023 13:36-0500 Diastolic blood pressure 96 mm[Hg] Roxana Bah MD Work Phone: [facility] 10-02-2023 13:36-0500 Heart rate 66 /min Roxana Bah MD Work Phone: [facility] 10-02-2023 13:36-0500 Systolic blood pressure 154 mm[Hg] Roxana Bah MD Work Phone: [facility] 08-31-2023 09:12-0500 Diastolic blood pressure 88 mm[Hg] Cesia WEEKS [facility] 08-31-2023 09:12-0500 Mean blood pressure 102 mm[Hg] Cesia WEEKS [facility] 08-31-2023 09:12-0500 Systolic blood pressure 131 mm[Hg] Cesia WEEKS [facility] 08-31-2023 09:06-0500 Blood Pressure Location Cesia WEEKS [facility] 08-31-2023 09:06-0500 Diastolic blood pressure 90 mm[Hg] Cesia WEEKS [facility] 08-31-2023 09:06-0500 Heart rate 68 /min Cesia WEEKS [facility] 08-31-2023 09:06-0500 Respiratory rate 16 /min Cesia WEEKS [facility] 08-31-2023 09:06-0500 Systolic blood pressure 145 mm[Hg] Cesia WEEKS [facility] 08-25-2023 15:20-0500 Diastolic blood pressure 84 mm[Hg] Cesia WEEKS [facility] 08-25-2023 15:20-0500 Heart rate 82 /min Cesia WEEKS [facility] 08-25-2023 15:20-0500 Systolic blood pressure 128 mm[Hg] Cesia WEEKS [facility] 08-10-2023 11:32-0500 Diastolic blood pressure 105 mm[Hg] Cesia WEEKS [facility] 08-10-2023 11:32-0500 Mean blood pressure 117 mm[Hg] Cesia WEEKS [facility] 08-10-2023 11:32-0500 Systolic blood pressure 142 mm[Hg] Cesia WEEKS [facility] 08-10-2023 11:26-0500 Blood Pressure Location Cesia WEEKS [facility] 08-10-2023 11:26-0500 Diastolic blood pressure 106 mm[Hg] Cesia WEEKS [facility] 08-10-2023 11:26-0500 Heart rate 80 /min Cesia WEEKS [facility] 08-10-2023 11:26-0500 Respiratory rate 16 /min Cesia WEEKS [facility] 08-10-2023 11:26-0500 Systolic blood pressure 144 mm[Hg] Cesia WEEKS [facility] Encounters Encounter Date Encounter Type Care Provider [...] 05-19-2024 End: 05-20-2024 ambulatory ALEK Donaldson Christy Facility:[facility] Start: 05-17-2024 End: 05-17-2024 Refill Katrina Warner APRN.DINING ROOM ATTENDANT [place] Work Phone: Urology Comment on above: Refill Request Start: 05-12-2024 End: 05-12-2024 ambulatory Mich KAMARA Facility:[facility] Start: 05-12-2024 End: 05-12-2024 Subsequent hospital visit by physician Arrival Time Radiology Work Phone: Radiology Pet CT Comment on above: Rising PSA following treatment for malignant neoplasm of prostate [R97.21] Start: 05-03-2024 End: 05-03-2024 Orders Only Charlene Reynoso [facility] Work Phone: Hematology/Oncology Start: 04-28-2024 End: 05-17-2024 [...] Start: 04-26-2024 End: 04-26-2024 ambulatory ALEK FATIMA Facility:[facility] Start: 04-20-2024 End: 04-20-2024 ambulatory VIRAL [...] 04-07-2024 Telemedicine consultation with patient Katrina Warner APRN.DINING ROOM ATTENDANT [employer]FETERIA Work Phone: Urology Start: 04-07-2024 End: 04-07-2024 ambulatory KATRINA WARNER Facility:[facility] Start: 03-31-2024 End: 03-31-2024 ambulatory ALEK [facility] Facility:[facility] Start: 03-01-2024 End: 03-01-2024 ambulatory VIRAL HERNANDEZ Not Available Start: 12-30-2023 End: 12-30-2023 ambulatory KATRINA WARNER Facility:[facility] Start: 12-30-2023 End: 12-30-2023 Follow-up encounter Katrina Acostamarques OROZCO.DINING ROOM ATTENDANT [employer]FETERIA Work Phone: Urology Comment on above: Encounter for follow -up surveillance of prostate cancer (Primary Dx); History of prostate cancer; PREETI (stress urinary incontinence), male; Erectile dysfunction following radical prostatectomy Start: 12-30-2023 End: 12-30-2023 Telemedicine consultation with patient Katrina Warner APRN.DINING ROOM ATTENDANT [employer]ER[employer] Work Phone: Urology Start: 12-29-2023 End: 12-29-2023 ambulatory [facility] Start: 12-25-2023 End: 12-25-2023 ambulatory ALEK FATIMA Facility:[facility] Start: 11-18-2023 End: 11-18-2023 ambulatory Katrina Warner APRN.DINING ROOM ATTENDANT [employer] Work Phone: Urology Comment on above: Prostate cancer (HCC ) (Primary Dx); PREETI (stress urinary incontinence), male Start: 11-18-2023 End: 11-18-2023 Telemedicine consultation with patient Katrina Warner APRN.DINING ROOM ATTENDANT [place]FETERIA Work Phone: [facility] Start: 11-16-2023 Telephone encounter [facility] Comment on above: Returning Patient's Call Start: 11-12-2023 Telephone encounter [facility] & Comment on above: Returning Patient's Call Follow Up Phone Call Start: 11-10-2023 Telephone encounter [facility] & Start: 11-06-2023 End: 11-06-2023 ambulatory ALEK M DEVANGChristy Facility:[facility] Start: 11-05-2023 End: 11-06-2023 ambulatory ROXANA BAH Facility:[facility] Start: 11-03-2023 End: 11-03-2023 ambulatory [facility] Facility:[facility] Start: 11-03-2023 End: 11-03-2023 Patient encounter procedure John RUIZ Work Phone: Urology Comment on above: Pre-op testing (Prim arnold Dx); Prostate cancer (HCC); Prostate disease Start: 11-03-2023 End: 11-03-2023 Patient encounter status John RUIZ Work Phone: [facility] Work Phone: Start: 11-03-2023 End: 11-03-2023 ambulatory JOHN HUMPHREYS Facility:[facility] Start: 11-03-2023 Encounter for other preprocedural examination JOHN HUMPHREYS [facility] Start: 11-03-2023 End: 11-03-2023 [facility] Main 9 Work Phone: Pre Anesthesia Comment on above: Pre-op evaluation (P rimary Dx); Malignant neoplasm of prostate (HCC); Cardiomyopathy in diseases classified elsewhere (HCC); Chronic ischemic heart disease; Chronic systolic (congestive) heart failure (HCC); Essential hypertension; Mixed hyperlipidemia; Paroxysmal atrial fibrillation (HCC) Start: 11-03-2023 End: 11-03-2023 Admission to establishment Pac Main 9 Work Phone: [facility] Start: 11-03-2023 End: 11-03-2023 Preprocedural examination done Pac Main 9 Work Phone: [facility] Work Phone: Start: 11-03-2023 End: 11-03-2023 ambulatory [facility] Facility:[facility] Start: 11-03-2023 Encounter for other preprocedural examination ROXANA BAH [facility] Start: 11-03-2023 End: 11-03-2023 Subsequent hospital visit by physician Card Injection Molecular Imaging Comment on above: Malignant neoplasm o f prostate (HCC) [C61] Start: 10-14-2023 End: 10-14-2023 ambulatory ALEK FATIMA Facility:[facility] Start: 10-08-2023 Orders Only [facility] & Comment on above: Congestive heart emma lure, unspecified HF chronicity, unspecified heart failure type (HCC) (Primary Dx) Start: 10-07-2023 Orders Only [facility] & Comment on above: Malignant neoplasm o f prostate (HCC) (Primary Dx) Start: 10-02-2023 End: 10-02-2023 ambulatory Roxana aBh MD Work Phone: Urology Start: 10-02-2023 End: 10-02-2023 Patient encounter procedure Roxana Bah MD Work Phone: Urology Comment on above: Prostate cancer (HCC ) (Primary Dx) Start: 09-14-2023 End: 09-14-2023 ambulatory Cesia Weeks Facility:[facility] Start: 09-14-2023 End: 09-14-2023 ambulatory MD Alek Fatima Work Phone: [facility] Work Phone: Start: 09-14-2023 End: 09-14-2023 Patient encounter procedure MD Alek Fatima Work Phone: [facility]-Pet Scan Work Phone: Start: 09-02-2023 Telephone encounter Cesia Weeks MD Work Phone: Cancer [facility] Comment on above: Nm Pet Request Start: 08-31-2023 End: 08-31-2023 ambulatory ROXANA BAH Facility:[facility] Start: 08-31-2023 End: 09-01-2023 ambulatory Cesia WEEKS Facility:[facility] Start: 08-31-2023 End: 08-31-2023 Patient encounter procedure Cesia WEEKS [facility] [place] Start: 08-25-2023 End: 08-26-2023 ambulatory Cesia WEEKS [facility] Work Phone: Start: 08-25-2023 End: 08-25-2023 Departed Referred MD Cesia Weeks Work Phone: [facility] [place] Work Phone: Start: 08-25-2023 End: 08-25-2023 Patient encounter procedure Cesia WEEKS [facility] Start: 08-10-2023 End: 08-11-2023 ambulatory Cesia WEEKS Facility:[facility] Start: 08-10-2023 End: 08-10-2023 Patient encounter procedure Cesia WEEKS [facility] [place] Start: 04-15-2023 ambulatory Cesia WEEKS Facility :[facility] [place] Start: 01-02-2023 End: 01-02-2023 ambulatory [facility] Start: 05-26-2022 End: 05-27-[address] ALEK FATIMA Facility:[facility] Start: 07-03-2021 Encounter for preprocedural laboratory examination DR ALEK FATIMA [facility] Start: 07-01-2021 End: 07-30-[address] ALEK FATIMA Facility:[facility] Start: 06-26-2021 End: 06-27-2021 ambulatory ALEK FATIMA [facility] Start: 06-26-2021 End: 06-27-2021 ambulatory CARYL ACEVEDO [facility] Start: 06-26-2021 End: 06-26-2021 Evaluation and management of inpatient [facility] 11 [facility] Start: 06-26-2021 End: 06-26-2021 Subsequent hospital visit by physician Brice 11 [facility] Comment on above: Pain Start: 06-24-2021 End: 06-24-[address] ALEK FATIMA Facility:[facility] Start: 06-24-2021 End: 06-24-2021 Encounter for preprocedural laboratory examination DR ALEK FATIMA Facility:[facility] Start: 06-03-2021 End: 06-03-2021 Documentation procedure Yohan Johnson MD Work Phone: [facility] Internal Medicine Virtual Comment on above: Pre-op Exam Start: 01-28-2021 End: 01-29-2021 ambulatory EHAB A ELTAHAWY Facility:[facility] Procedures Date Procedure Procedure Detail Performing Clinician Start: 11-03-2023 Urnls dip stick/tabl et reagent auto microscopy Bulk Order Provider Start: 11-03-2023 Antibody screen ROXANA BAH Comment on above: Order Comment: Speci men Type: BLOOD SPECIMENOrdering Facility: [facility] Address: [address] [place] [address] Performed By: #### T [id number] ####CC MAIN BLOOD BANKCLIA [id number] [place] [address] [place] Start: 11-03-2023 Myocardial [...] an tigen measurement Prostate Cancer Screening Discussion [facility] Start: 03-31-2029 Prostate specific an tigen measurement Prostate Cancer Screening Discussion [facility] Start: 12-24-2028 Prostate specific an tigen measurement Prostate Cancer Screening Discussion [facility] Start: 11-05-2026 Diabetes Screening Diabetes Screenin mich [facility] Start: 11-02-2026 Diabetes Screening Diabetes Screenin g [facility] Start: 09-15-2024 End: 09-15-2024 ambulatory 09/15/2024 7:30 AM [facility] Urology [address] [id number] Katrina Warner APRN.[address] [address] f/u virtual visit in 3 months. Urology Comment on above: f/u virtual visit in 3 months. Start: 06-27-2024 Diabetes Screening Diabetes Screenin mich [facility] Start: 06-06-2024 End: 06-06-2024 Patient encounter procedure Radiation Oncology Comment on above: Eligard Injection Follow up SIM treating pelvis MIKAL Start: 05-20-2024 End: 08-19-2024 CREATININE BLD CREATININE BLD Lab Routine Malignant neoplasm of prostate (HCC) Expected: 05/20/2024 (Approximate), Expires: 08/19/2024 [facility] Work Phone: Comment on above: Expected: 05/20/2024 (Approximate), Expires: 08/19/2024 Start: 05-19-2024 End: 05-19-2024 Patient encounter procedure 05/19/2024 11:30 AM EDT Office Visit Radiation Oncology [address] [place] [address] Mich Kamara MD [address] [place] [address] SIM treating pelvis MIKAL Rad[facility] Oncology Comment on above: SIM treating pelvis MIKAL Start: 05-19-2024 End: 05-19-2024 Patient encounter procedure Radiation Oncology Comment on above: Follow up after PET Sim Consent and Elig alyssa Injection Start: 05-12-2024 End: 05-12-2024 Patient encounter procedure 05/12/2024 1:30 PM EDT Appointment Radiology Pet CT [address] [place] [address] [place] [address] [address] [address] Comment on above: [facility] PET Start: 05-07-2024 End: 08-06-2024 Prostate specific Ag [Mass/volume] in Serum or Plasma PROSTATE-SPECIFIC ANTIGEN DIAGNOSTIC Lab Routine History of prostate cancer Rising PSA following treatment for malignant neoplasm of prostate Expected: 05/07/2024 (Approximate), Expires: 08/06/2024 [facility] Work Phone: Comment on above: Expected: 05/07/2024 (Approximate), Expires: 08/06/2024 Start: 04-03-2024 Covid-19 Vaccine ( season) Covid-19 Vaccine () [facility] Start: 04-03-2024 Covid-19 Vaccine ( season) Covid-19 Vaccine () [facility] Start: 04-03-2024 Influenza vaccination [facility] Start: 03-31-2024 End: 06-30-2024 Prostate specific Ag [Mass/volume] in Serum or Plasma PROSTATE-SPECIFIC ANTIGEN DIAGNOSTIC Lab Routine History of prostate cancer Expected: 03/31/2024 (Approximate), Expires: 06/30/2024 [facility] Work Phone: Comment on above: Expected: 03/31/2024 (Approximate), Expires: 06/30/2024 Start: 01-01-2024 End: 04-01-2024 Prostate specific Ag [Mass/volume] in Serum or Plasma PROSTATE-SPECIFIC ANTIGEN DIAGNOSTIC Lab Routine Prostate cancer (HCC) Expected: 01/01/2024 (Approximate), Expires: 04/01/2024 [facility] Work Phone: Comment on above: Expected: 01/01/2024 (Approximate), Expires: 04/01/2024 Start: 11-23-2023 Advance Directive Discussion Advance Directive Discussion [facility] Start: 08-03-2023 Behavioral Health Screening Behavioral Health Screening [facility] Start: 08-03-2023 Depression Assessment Depression Ass essment [facility] Start: 04-03-2023 Covid-19 Vaccine ( season) Covid-19 Vaccine ( season) [facility] Start: 04-03-2023 Influenza vaccination Influenza Vacc ine (#1) [facility] Start: 06-27-2022 Hypertension/CHF/CAD Annual BMP Blood Test Hypertension/CHF/CAD Annual BMP Blood Test [facility] Start: 06-03-2022 Hypertension/CHF/CAD Annual BMP Blood Test Hypertension/CHF/CAD Annual BMP Blood Test [facility] Start: 06-26-2021 End: 06-26-2021 Admission to same day surgery center 06/26/2021 Surgery Operating Room Caryl Acevedo MD [address] [facility] [address] [place] [address] ARTHROPLASTY HIP TOTAL RIGHT ANTERIOR [24151 (CPT )] [facility] Comment on above: ARTHROPLASTY HIP TOT AL RIGHT ANTERIOR [40533 (CPT )] Start: 06-26-2021 End: 06-26-2021 Arthrp acetblr/prox fem prostc agrft/algrft ARTHROPLASTY HIP TOTAL ANTERIOR Unilateral primary osteoarthritis, right hip 06/26/2021 6:30 AM EST [facility] Start: 06-26-2021 Subsequent hospital visit by physician 06/26/2021 Hospital Encounter Operating Room [facility] Start: 05-03-2021 COVID-19 Vaccine (3 - Booster for Pfizer series) COVID-19 Vaccine (3 - Booster for Pfizer series) [facility] Start: 04-27-2021 Adolescent depressio n screening assessment Depression Screening [facility] Start: 04-27-2021 Depression Screening Depression Scre ening [facility] Start: 04-27-2021 Hepatitis C screening Hepatitis C Sc reening [facility] Start: 04-27-2021 HIV screening HIV Screening [facility] Start: 04-27-2021 Lipid panel Cholesterol Sc reening (Lipid Panel) [facility] Start: 04-27-2021 Screening for malign ant neoplasm of colon Colorectal Cancer Screening: Colonoscopy [facility] Start: 04-27-2021 Social Influencers o f Health Screening Social Influencers of Health Screening [facility] Start: 04-03-2021 Influenza vaccination Influenza Vacc ine (#1) [facility] Start: 2018 RSV Vaccine (1 - 1-d ose 60+ series) RSV Vaccine (1 - 1-dose 60+ series) [facility] Start: 2018 RSV Vaccine (1 - Ris k 60-74 years 1-dose series) RSV Vaccine (1 - Risk 60-74 years 1-dose series) [facility] Start: 2013 Prostate specific an tigen measurement Prostate Cancer Screening Discussion [facility] Start: 2008 Shingrix Vaccine (1 of 2) Sky grix Vaccine (1 of 2) [facility] Start: 2008 Zoster Vaccines (1 of 2) Zoste r Vaccines (1 of 2) [facility] Start: 11-23-2003 Screening for malign ant neoplasm of colon [facility] Start: 1993 Lipid panel Lipid Screening [facility] Start: 1977 DTaP,Tdap,and Td Vac cines (1 - Tdap) DTaP,Tdap,and Td Vaccines (1 - Tdap) [facility] Start: 1977 Urine microalbumin profile DTa P,Tdap,Td Vaccine (1 - Tdap) [facility] Start: 1976 Annual PCP Team Front Desk Host lianne Disease Visit Annual PCP Team Chronic Disease Visit [facility] Start: 1976 Anxiety Screening Anxiety Screening [facility] Start: 1976 BP Controlled (<130/80) BP Con trolled (<130/80) [facility] Start: 1976 Depression Screening Depression Scre ening [facility] Start: 1976 Hepatitis B surface antibody level LDL Cholesterol [facility] Start: 1976 Hepatitis C screening Hepatitis C Sc reening [facility] Start: 1976 HIV screening HIV Screening [facility] Start: 1976 Spirometry Spirometry [facility] Start: 1970 COVID-19 Vaccine (1) COVID-19 Vaccin e (1) [facility] Start: 1964 Pneumococcal vaccination Pneum ococcal Vaccine (1 of 2 - PCV) [facility] Start: 1964 Pneumococcal Vaccine : 65+ (1 of 2 - PCV) Pneumococcal Vaccine: 65+ (1 of 2 - PCV) [facility] Start: 1964 Pneumococcal Vaccine : Pediatrics (0 to 5 Years) and At-Risk Patients (6 to 64 Years) (1 of 2 - PPSV23) Pneumococcal Vaccine: Pediatrics (0 to 5 Years) and At-Risk Patients (6 to 64 Years) (1 of 2 - PPSV23) [facility] Bacteria identified in Urine by Culture URINE CULTURE Microbiology Routine Prostate cancer (HCC) Prostate disease Ordered: 11/03/2023 [facility] Work Phone: Comment on above: Ordered: 11/03/2023 CT Guidance for radi ation treatment of Unspecified body region CT SIM PLANNING RADIATION ONCOLOGY Radiology Routine History of prostate cancer Ordered: 05/19/2024 [facility] Work Phone: Comment on above: Ordered: 05/19/2024 End: 10-07-2024 Echocardiography ECHO Cardiology Routine Congestive heart failure, unspecified HF chronicity, unspecified heart failure type (HCC) 1 Occurrences starting 10/08/2023 until 10/07/2024 [facility] Work Phone: Comment on above: 1 Occurrences starti ng 10/08/2023 until 10/07/2024 End: 06-18-2025 MR Cervical spine WO and W contrast IV MRI CERVICAL SPINE WO/W IVCON Radiology Routine History of prostate cancer 1 Occurrences starting 05/19/2024 until 06/18/2025 [facility] Comment on above: 1 Occurrences starti ng 05/19/2024 until 06/18/2025 End: 11-05-2024 NM Heart Perfusion W stress and W radionuclide IV NM CARDIAC PERF STRESS/PHARM Radiology Routine Malignant neoplasm of prostate (HCC) 1 Occurrences starting 10/07/2023 until 11/05/2024 [facility] Work Phone: Comment on above: 1 Occurrences starti ng 10/07/2023 until 11/05/2024 End: 05-28-2025 PET+CT Guidance for localization of tumor of Whole body-- W 18F-FDG IV NM PET/CT PROSTATE WHOLE BODY IMAGING Radiology Routine Rising PSA following treatment for malignant neoplasm of prostate 1 Occurrences starting 04/28/2024 until 05/28/2025 [facility] Work Phone: Comment on above: 1 Occurrences starti ng 04/28/2024 until 05/28/2025 PET+CT Guidance for localization of tumor of Whole body-- W 18F-FDG IV NM PET/CT PROSTATE WHOLE BODY IMAGING Radiology Routine Rising PSA following treatment for malignant neoplasm of prostate 05/12/2024 2:55 PM EDT [facility] Work Phone: End: 06-22-2025 XR Facial bones 3 Views XR FACIAL BONES 3V AP/LAT/WEEKS Radiology Routine Prostate cancer (HCC) 1 Occurrences starting 05/23/2024 until 06/22/2025 [facility] Work Phone: Comment on above: 1 Occurrences starti ng 05/23/2024 until 06/22/2025 [facility] Immunizations Immunization Date Immunization Notes Care Provider Fa cility 11-01-2020 SARS-CoV-2 (COVID-19 ) mRNA BNT-162b2 vax Cesia WEEKS [facility] 10-11-2020 SARS-CoV-2 (COVID-19 ) mRNA BNT-162b2 vax Cesia WEEKS [facility] NEGATED: Highlighted row has not occurred!08-25-2023 influenza virus vaccine, unspecified formulation Cesia WEEKS [facility] Payers Date Payer Category Payer Medicare MEDICARE MEDICAR E A AND B [id number] 2023-Present [phone] [place] [address] Medicare [id number] 2023 Medicare [id number] 2023 Self-pay [id number] 2021 Unknown [id number] 2021 Unknown [id number] 2018 Unknown [employer] M [employer] SU[employer]MED [id number] 2018-Present [address] [place] [address] [id number] 1959 Self-pay [id number] 1959 Unknown [id number] 1958 Unknown [id number] 1958 Unknown [id number] 1958 Unknown [id number] 1958 Unknown [id number] [id number] 1958 Unknown [id number] 2.16.840.1.038568.3.579.2.593 1958 Unknown [id number] 2.16.840.1.315798.3.579.2.593 1958 Unknown [id number] 2.16.840.1.423946.3.579.2.727 1958 Unknown [id number] 2.16.840.1.578300.3.579.2.727 1958 Unknown [id number] 2.16.840.1.955144.3.579.2.727 1958 Unknown [id number] [id number] 1958 Unknown [id number] [id number] 1958 Unknown [id number] [id number] Unknown [id number] [id number] Unknown [id number] Social History Date Type Detail Facility Tobacco smoking stat [facility] Unknown if ever smoked [facility] Work Phone: Start: 1960 Sex Assigned At Not on file T [facility] Start: 06-25-2021 End: 11-03-2023 Tobacco smoking status VAIS Never smoker [facility] Start: 06-25-2021 End: 04-28-2024 Alcohol intake Lifetime non-drinker (finding) [facility] Start: 06-25-2021 History SDOH Alcohol Frequency 1 [facility] Exposure to SARS-CoV -2 (event) Not sure Thuy E-Sign Tobacco smoking status Never [facility] Start: 11-03-2023 End: 04-28-2024 Sex Assigned At Male [facility] Start: 1960 Sex Assigned At Male [facility] Start: 11-03-2023 Tobacco use and exposure Smokeless tobacco non-user [facility] Start: 11-03-2023 End: 04-28-2024 History of Social function [facility] Medical Equipment Procedure Code Equipment Code Equipment Origin al Text Equipment Identifier Dates Hip G7 [employer]ps [employer] A cet Shell 56f - Sna - [id number] 21)[id number], [id number] FDA Start: 06-26-2021 Liner G7 Neutral Ve 36mm F - Sna - [id number] (21)NA, [id number] FDA Start: 06-26-2021 Complete Ho Collarless Sz 7.5 - Sna - [id number]/[facility], [id number] FDA Start: 06-26-2021 Hip Hd Blx D Fem 36mm +7mm - [facility] - [id number]/[facility], [id number] FDA Start: 06-26-2021 Functional Status Date Assessment Result Facility 08-31-2023 Functional Status N/A [facility] 08-25-2023 Functional Status N/A [facility] 08-10-2023 Functional Status N/A [facility] Clinical Notes 06-03-2021 to 05-23-2024 Telephone Encounter - Roxy Armstrong RN - 05/23/2024 3:14 PM EDTTelephone Encounter - Roxy Armstrong RN - 05/23/2024 3:14 PM EDTTelephone Encounter - Roxy Armstrong RN - 05/23/2024 1:38 PM EDT Note Date & Type Note Facility 05-23-2024 Telephone encounter Note Order faxed to [facility]. Roxy Armstrong RN [facility] 05-23-2024 Miscellaneous Notes Order faxed to [facility]. Roxy Armstrong RN Call received from [facility]- 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 They need to get an order for XRay ORbits to make sure he does not have any metal. Please sign and we will fax to [facility]. 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 They need to get an order for XRay ORbits to make sure he does not have any metal. Please sign and we will fax to [facility]. Roxy Armstrong RN [facility] 05-23-2024 Telephone encounter Note Order Signed. Roxy Armstrong RN [facility] 05-23-2024 Miscellaneous Notes Order Signed. Roxy Armstrong RN Please sign pended Creat for [facility]. Roxy Armstrong RN documented in this encounter [facility] 05-20-2024 Telephone encounter Note Please sign pended Creat for [facility]. Roxy Armstrong RN [facility] 05-19-2024 Note HNO ID: [id number] Author: Mich KAMARA MD Service: ? Author [...] bilateral pelvic lymph node dissection for 11/05/2023, [place] 8 (4+4) pT3a pN0, with detectable and [...] any questions regarding this interpretation, please call [phone]. If you are unable to reach us at the number above, please feel free to contact [facility] at [phone]. Results-Findings * * *Final Report* * * [...] * Prostate Cancer Grade: Grade Group 5 ([place] score 4 + 5) * PSA: 0.18 [...] SPECT 11/03/2023. -Pr (more content not included)... [facility] 05-19-2024 History of Present illness Narrative Radiation Oncology - Prostate Cancer New Patient/Consult Note PATIENT NAME: Sukhdeep Gamino PATIENT REQUESTING PROVIDER: Katrina Saul CNP OTHER PROVIDERS: Dr. Alek Fatima, Dr. Mayo Bah DIAGNOSIS: 63 year old male with prostate adenocarcinoma, initial PSA 7.9, biopsy [place] score 4 + 5 = 9 (grade group 5), clinical stage T2c, N0, M0, status post robotic radical prostatectomy and bilateral pelvic lymph node dissection for 11/05/2023, [place] 8 (4+4) pT3a pN0, with detectable and [...] any questions regarding this interpretation, please call [phone]. If you are unable to reach us at the number above, please feel free to contact [facility] at [phone]. Results-Findings * * *Final Report* * * [...] * Prostate Cancer Grade: Grade Group 5 ([place] score 4 + 5) * PSA: 0.18 [...] ultrasound-guided biopsy on 08/25/2023, with finding of [place] grade group 5 (4+5) from the left [...] ^Rfl: fluticasone (FLONASE) 50 mcg/actuation nasal spray^1 [place].^Disp: ^Rfl: iv contrast (will be provided with [...] by: Mich Kamara MD cc: Alek Fatima [address] [place] [address] Katrina Warner [address] [address] documented in this encounter [facility] 05-17-2024 Telephone encounter Note Requested Prescriptions Pending Prescriptions Disp Refills Tadalafil (CIALIS) 5 mg tablet 90 tablet 1 Sig: Take 1 tablet by mouth once daily. [facility] 05-17-2024 Miscellaneous Notes Requested Prescriptions Pending Prescriptions Disp Refills Tadalafil (CIALIS) 5 mg tablet 90 tablet 1 Sig: Take 1 tablet by mouth once daily. documented in this encounter [facility] 05-12-2024 History of Present illness Narrative Radiology [...] 1330 PATIENT DISCHARGED TO: Ambulatory patient, left IN department area. A Diagnostic radioactive procedure has taken place, with no further precautions necessary other than routine body substance precautions. More information regarding radiation safety can be found using this link: [email or web address] [email or web address] ear%[email or web address] SIGNATURE: RT Fiorella(Betty) PATIENT NAME: Sukhdeep Gamino DATE: May 12, 2024 TIME: 2:08 PM PAGER/CONTACT #: documented in this encounter [facility] 05-12-2024 Note HNO ID: [id number] Author: ZENAIDA WINTER RN Service: ? Author [...] DATE: May 12, 2024 TIME: 1:37 PM [facility] 05-12-2024 Note HNO ID: [id number] Author: MAKENZIE REYNOSO RT(R) Service: ? Author [...] 1330 PATIENT DISCHARGED TO: Ambulatory patient, left IN department area. A Diagnostic radioactive procedure has taken place, with no further precautions necessary other than routine body substance precautions. More information regarding radiation safety can be found using this link: [email or web address] [email or web address]-% 20Diagnostic%20Nuclear%20Medicine %[email or web address] SIGNATURE: RT Fiorella(R) PATIENT NAME: Sukhdeep Gamino DATE: May 12, 2024 TIME: 2:08 PM PAGER/CONTACT #: [facility] 04-28-2024 Telephone encounter Note Pharmacist: Will you please enter Eligard 45mg orders and route to Dr. Kamara? Eligard and SIM to be scheduled after PSMA PET which is pending insurance approval. Thanks Divina Braswell RN [facility] 04-28-2024 Miscellaneous Notes Pharmacist: Will you please enter Eligard 45mg orders and route to Dr. Kamara? Eligard and SIM to be scheduled after PSMA PET which is pending insurance approval. 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: Joseph Gaming the patient need anesthesia: No [...] flotufolastat,18F flotufolastat Posluma MC GA68 PSMA PET 42070/LOCAMETZ (Gallium GA-68 Gozetotide) (6 mCi) A9800 - MC Posluma (Flotufolastat F18) (8mCi), [id number] - Region Auth#: Date Range: NPI: Member ID: Medicare Site/Contact: Case/Ref#: Notes: Route to [facility] or Requested Scheduling Pool: P PET ASSOCIATE PROFESSOR OF GEOGRAPHY [facility], P [facility] CLERICAL POOL([place]), P JOSEPH MATE RELIEF [facility] 04-28-2024 Miscellaneous Notes 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: Joseph Will the patient need anesthesia: No Primary Insurance: Medicare B Effective Date: 04-26-24 Date of Initial PET: N/A Cancer Type: Prostate Cancer Date of Subsequent PET scan: Pend scheduling S1 ABN Required: No Diagnosis: Rising PSA following treatment for malignant neoplasm of prostate [R97.21] Initial/Subsequent: Subsequent Pathology: 11-05-23 Prostate, radical prostatectomy: - Prostatic adenocarcinoma, [place] score 4+4=8 Grade Group 4 Labs: 04-26-24 [...] F-18 flotufolastat,18F flotufolastat Posluma GA68 [facility] PET 37612/LOCAMETZ (Gallium GA-68 Gozetotide) (6 mCi) A9800 - [place] (Flotufolastat F18) (8mCi), A9608 - Region Auth#: Date Range: NPI: Member ID: Medicare Site/Contact: Case/Ref#: Notes: Route to or Requested Scheduling Pool: P PET ASSOCIATE PROFESSOR OF GEOGRAPHY , P [facility] CLERICAL POOL([place]), P [facility] This form is used for MAIN CAMPUS APPOINTMENTS ONLY. Is this request for a [facility] [place] PET scan appointment? Yes: Veneer Trimmer: OSWALDO Ramirez Requesting Person (Last Name, First Name): DietBettereler Area Code + Phone/Pager: [phone] Who do we call to schedule this appointment? Other Contact: [facility] in [place], Route to Regine Reynoso to schedule. Requesting Staff Eng[place] Area Code + Phone/Pager: [phone] PET Orders (A delay in scheduling will result if the orders are not present at time of review): Internal ADDITIONAL ACTION MAY BE REQUIRED IF PATIENTS OON INSURANCE OR SELF PAY COVERAGE HAS NOT BEEN CLEARED FOR REQUESTED APPOINTMENT. Scheduling: SUHKJINDER: As soon as insurance will allow What [...] P COORD REVIEW documented in this encounter [facility] 04-28-2024 Nurse Note Radiation Therapy - Patient Education Note PATIENT NAME: Sukhdeep Gamino PATIENT April 28, 2024 [facility] FACILITY/LOCATION: [facility] READINESS TO LEARN Cognitive Ability: Alert and [...] need for social work, van service, and powder room attendant. Was PED reviewed? No Patient has an Onbody or Implanted device: No Signed by: Divina Braswell RN [facility] 04-28-2024 Nurse Note Radiation Therapy - Patient Education Note PATIENT NAME: Sukhdeep Gamino PATIENT April 28, 2024 [facility] FACILITY/LOCATION: [facility] READINESS TO LEARN Cognitive Ability: Alert and [...] need for social work, van service, and powder room attendant. Was PED reviewed? No Patient has an Onbody or Implanted device: No Signed by: Divina Braswell RN documented in this encounter [facility] 04-28-2024 Telephone encounter Note This form is used for MAIN CAMPUS APPOINTMENTS ONLY. Is this request for a [facility] [place] PET scan appointment? Yes: Veneer Trimmer: OSWALDO Ramirez Requesting Person (Last Name, First Name): Engeler Area Code + Phone/Pager: [phone] Who do we call to schedule this appointment? Other Contact: [facility] in [place], Route to [facility] to schedule. Requesting Staff [place] Area Code + Phone/Pager: [phone] PET Orders (A delay in scheduling will [...] Send requests to P COORD REVIEW [facility] 04-28-2024 History of Present illness Narrative Radiation [...] A. Prostate, radical prostatectomy: - Prostatic adenocarcinoma, [place] score 4+4=8 with tertiary pattern 5, Grade [...] (usual) Histologic Grade Grade Grade group 4 ([place] Score 4 + 4 = 8) Intraductal [...] fluticasone (FLONASE) 50 mcg/actuation nasal spray 1 [place]. PAST MEDICAL HISTORY Diagnosis Date Asthma Atrial [...] ASSESSMENT/PLAN: Prostate adenocarcinoma, initial PSA 7.9, biopsy [place] score 4 + 5 = 9 (grade [...] Mich Kamara MD cc: Alek Fatima [address] [place] [address] Katrina Warner [phone] [phone] documented in this encounter [facility] 04-28-2024 Note HNO ID: [id number] Author: Mich KAMARA MD Service: ? Author [...] ultrasound-guided biopsy on 08/25/2023, with finding of [place] grade group 5 (4+5) from the left [...] (usual) Histologic Grade Grade Grade group 4 ([place] Score 4 + 4 = 8) Intraductal [...] (1-2 pads) 1 (more content not included)... [facility] 04-28-2024 Nurse Note AUA= 2 Pacemaker/Defibrillator?N Previous Cancer(s)?N Previous Radiation?N Lupus/Scleroderma?N On body monitoring device?N [facility] 04-28-2024 Nurse Note AUA= 2 Pacemaker/Defibrillator?N Previous Cancer(s)?N Previous Radiation?N Lupus/Scleroderma?N On body monitoring device?N documented in this encounter [facility] 04-28-2024 Note Education (MARIBEL) SUKHDEEP GAMINO ([id number]) 1960 [place] Date Time Provider Department 04/28/24 DIVINA BRASWELL Reason for Visit: Patient Education [91] Visit Notes: >> Divina Braswell LPN [place] Apr 28, 2024 3:21 PM Status: Signed Radiation Therapy - Patient Education Note PATIENT NAME: Sukhdeep Gamino PATIENT April 28, 2024 [facility] FACILITY/LOCATION: [facility] READINESS TO LEARN Cognitive Ability: Alert and [...] need for social work, van service, and powder room attendant. Was PED reviewed? No Patient has an [...] fluticasone (FLONASE) 50 mcg/actuation nasal spray 1 [place]. Encounter Status:Closed by DIVINA BRASWELL on 04/28/24 [facility] 04-07-2024 History of Present illness Narrative VIRTUAL VISIT PROGRESS NOTE This is a virtual visit using [employer] Zoom Video Visit. It required patient-provider interaction for the medical decision making as documented below. I have communicated my name and active licensure. The patient's identity and physical location were verified at the time of this visit. Either the patient or their legal retail account representative has been informed of the risks [...] A. Prostate, radical prostatectomy: - Prostatic adenocarcinoma, [place] score 4+4=8 with tertiary pattern 5, Grade [...] fluticasone (FLONASE) 50 mcg/actuation nasal spray 1 [place]. No current facility-administered medications for this visit. [...] which included preparing to see the patient, [id number] patient care, completing clinical documentation, counseling and educating the patient/family/caregiver, and ordering medications, tests, or procedures Katrina Warner APRN.CNP documented in this encounter [facility] 04-07-2024 Note HNO ID: [id number] Author: KATRINA WARNER APRN.CNP Service: ? Author Type: Nurse Practitioner Type: Progress Notes Filed: 04/07/2024 17:13 Note Text: VIRTUAL VISIT PROGRESS NOTE This is a virtual visit using [employer] Video Visit. It required patient-provider interaction for the medical decision making as documented below. I have communicated my name and active licensure. The patient's identity and physical location were verified at the time of this visit. Either the patient or their legal retail account representative has been informed of the risks [...] A. Prostate, radical prostatectomy: - Prostatic adenocarcinoma, [place] score 4+4=8 with tertiary pattern 5, Grade [...] fluticasone (FLONASE) 50 mcg/actuation nasal spray 1 [place]. No current facility-administered medications for this visit. [...] demand dosing where (more content not included)... [facility] 12-30-2023 History of Present illness Narrative VIRTUAL VISIT PROGRESS NOTE This is a virtual visit using [employer] Video Visit. It required patient-provider interaction for the medical decision making as documented below. I have communicated my name and active licensure. The patient's identity and physical location were verified at the time of this visit. Either the patient or their legal retail account representative has been informed of the risks [...] fluticasone (FLONASE) 50 mcg/actuation nasal spray 1 [place]. No current facility-administered medications for this visit. [...] which included preparing to see the patient, [id number] patient care, completing clinical documentation, counseling and educating the patient/family/caregiver, and ordering medications, tests, or procedures Katrina Warner APRN.CNP documented in this encounter [facility] 12-30-2023 Note HNO ID: [id number] Author: KATRINA WARNER APRN.CNP Service: ? Author Type: Nurse Practitioner Type: Progress Notes Filed: 12/30/2023 17:24 Note Text: VIRTUAL VISIT PROGRESS NOTE This is a virtual visit using [employer] Video Visit. It required patient-provider interaction for the medical decision making as documented below. I have communicated my name and active licensure. The patient's identity and physical location were verified at the time of this visit. Either the patient or their legal retail account representative has been informed of the risks [...] A. Prostate, radical prostatectomy: - Prostatic adenocarcinoma, [place] score 4+4=8 with tertiary pattern 5, Grade [...] fluticasone (FLONASE) 50 mcg/actuation nasal spray 1 [place]. No current facility-administered medications for this visit. [...] -Follow up virtua (more content not included)... [facility] 12-29-2023 Note [facility] Cardiology Clinic Note Chief Complaint: Patient here for 1 year follow up CAD, chronic systolic heart failure, and hypertension. Had routine labs w/ lipid last January 2023. Had echo last month at [facility]. HPI: Sukhdeep Gamino is a 63 [...] thromboembolic prophylaxis given his atrial fibrillation and [id number] score; given significant bruising and ecchymosis, he can safely stop aspirin and continue on Coumadin alone given stable coronary artery disease Treat noncardiac comorbidities as clinically appropriate Return to clinic in 1 year or sooner should problems arise Adriana Huff MD, MPH, FACC, [facility], [facility] Interventional Cardiology Pager Email: [email or web address] 11-18-2023 History of Present illness Narrative VIRTUAL VISIT PROGRESS NOTE This is a virtual visit using [employer] Zoom Video Visit. It required patient-provider interaction for the medical decision making as documented below. I have communicated my name and active licensure. The patient's identity and physical location were verified at the time of this visit. Either the patient or their legal retail account representative has been informed of the risks [...] A. Prostate, radical prostatectomy: - Prostatic adenocarcinoma, [place] score 4+4=8 with tertiary pattern 5, Grade [...] fluticasone (FLONASE) 50 mcg/actuation nasal spray 1 [place]. bicalutamide (CASODEX) 50 mg tablet Take 1 [...] test, echo, and EKG) to his local coordinating producer at [phone] per patient request There are no Patient Instructions on file for this visit. I spent a total of 45 minutes on the date of the service which included preparing to see the patient, [id number] patient care, completing clinical documentation, counseling and educating the patient/family/caregiver, and ordering medications, tests, or procedures Katrina Warner APRN.JC documented in this encounter [facility] 11-18-2023 Note HNO ID: [id number] Author: KATRINA WARNER APRN.[facility] Service: ? Author Type: Nurse Practitioner Type: Progress Notes Filed: 11/18/2023 15:56 Note Text: VIRTUAL VISIT PROGRESS NOTE This is a virtual visit using [employer] Zoom Video Visit. It required patient-provider interaction for the medical decision making as documented below. I have communicated my name and active licensure. The patient's identity and physical location were verified at the time of this visit. Either the patient or their legal retail account representative has been informed of the risks [...] fluticasone (FLONASE) 50 mcg/actuation nasal spray 1 [place]. bicalutamide (CASODEX) 50 mg tablet Take 1 [...] Reviewed post-op phy (more content not included)... [facility] 11-16-2023 Miscellaneous Notes Returned call to Mr. Gamino regarding incontinence. Given directions on how to properly do kegel exercises and how many. Handout emailed to him. He will call the office with any further questions or concerns. Casi Rocha RN, BSN Triage Nurse Department of Urology [facility] documented in this encounter [facility] 11-12-2023 Miscellaneous Notes Spoke to Mr. Gamino. Advised to stop cipro. Keflex has been called in for him. He can take antihistamine as advised. Patient verbalized understanding. All questions answered. Casi Rocha RN, BSN Triage Nurse Department of Urology [facility] documented in this encounter [facility] 11-12-2023 Miscellaneous Notes Spoke to Mr. Gamino. [...] RN, BSN Triage Nurse Department of Urology [facility] documented in this encounter [facility] 11-10-2023 Miscellaneous Notes Notified patient that per Dr. Bah, it is okay for him to take his short course of cipro for his padgett catheter. Pt verbalized understanding. All questions answered. Casi Rocha RN, BSN Triage Nurse Department of Urology [facility] documented in this encounter [facility] 11-06-2023 Note HNO ID: [id number] Author: NAYELY FLOR MD Service: Urology Author Type: Resident Type: Progress Notes Filed: 11/06/2023 07:43 Note Text: [facility] UROLOGY PROGRESS NOTE Name: Sukhdeep Gamino Bed: Main - Periop OR/Main - * Date: 11/06/2023 After Hours [facility] Urology Service Pager: [phone] ASSESSMENT AND PLAN Sukhdeep Gamino is a [...] 2019: LVEF 40% Chronic ischemic heart disease [facility] x3, most recent ~2018. -NM Cardiac Perfusion [...] N V CP SOB Hb 11.6 (11.6) Kitchen Porter 1.23 (1.29) Objective Vital Signs BP 110/74 [...] 1.29* GLUC 190* 134* 105* Imaging Reviewed [facility] 11-06-2023 Note HNO ID: [id number] Author: FLORI OCHOA MD Service: Urology Author [...] continue telemetry Flori Ochoa MD Urology PGY3 [facility] [place] Personal pager: [phone] On weekends and after 5PM, please page [phone] [facility] 11-05-2023 Note HNO ID: [id number] Author: FLORI OCHOA MD Service: Urology Author Type: Resident Type: Progress Notes Filed: 11/05/2023 21:03 Note Text: [facility] [place] UROLOGY PROGRESS NOTE Name: Sukhdeep Gamino Bed: Main - Periop OR/Main - * Date: 11/05/2023 After Hours [facility] Urology Service Pager: [phone] ASSESSMENT AND PLAN Sukhdeep Gamino is a [...] 2019: LVEF 40% Chronic ischemic heart disease [facility] x3, most recent ~2018. -NM Cardiac Perfusion Test 11/03/2023: negative for ischemia Chronic systolic (congestive) heart failure (HCC) -ECHO 2019: LVEF 40% Essential hypertension Carvedilol, Diltiazem and Lisinopril. Mixed hyperlipidemia Pravastatin Paroxysmal atrial fibrillation (HCC) Carvedilol, Diltiazem. On OAC Coumadin. SUBJECTIVE Pt with expected post op pain No N V CP SOB Hb 11.6 (14.3) Kitchen Porter 1.29 (1.29) Objective Vital Signs BP 139/89 [...] 25* CREAT 1.29* GLUC 105* Imaging Reviewed [facility] 11-05-2023 Note HNO ID: [id number] Author: SAL ALONSO SRNA Service: ? Author [...] November 05, 2023 TIME: 1:34 PM CSN: [id number] [facility] 11-05-2023 Note HNO ID: [id number] Author: SAL ALONSO SRNA Service: ? Author [...] November 05, 2023 TIME: 1:29 PM CSN: [id number] [facility] 11-05-2023 Note HNO ID: [id number] Author: SAL ALONSO SRNA Service: ? 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, care warehouse team member and patient Staffing Anesthesiologist: Kathy Lindo MD [...] November 05, 2023 TIME: 1:29 PM CSN: [id number] [facility] 11-03-2023 Note HNO ID: [id number] Author: JOHN HUMPHREYS PA Service: ? Author Type: Physician Contract Clerk Type: Progress Notes Filed: 11/03/2023 15:06 Note Text: [facility] PRE-OP NOTE Sukhdeep Gamino is a 62 year old male. Pre-op Date: November 03, 2023 Date of Procedure: 11/05/2023 Does the patient have an active COVID-19 test in [facility]? N/A Procedure/Surgery: RALP Diagnosis: prostate cancer Primary [...] scheduled: Yes Consent Signed: Consent not in [facility]. Surgeon notified via staff mesage. DOS Orders Placed and Signed: Yes. Pre-op HANDP Done by [employer]: Yes. PATIENT INSTRUCTIONS FOR SURGERY 1.) DO [...] pending LABS. John Humphreys PA-C Electronically signed [facility] 11-03-2023 History of Present illness Narrative [facility] PRE-OP NOTE Sukhdeep Gamino is a 62 year old male. Pre-op Date: November 03, 2023 Date of Procedure: 11/05/2023 Does the patient have an active COVID-19 test in [facility]? N/A Procedure/Surgery: RALP Diagnosis: prostate cancer Primary [...] scheduled: Yes Consent Signed: Consent not in [facility]. Surgeon notified via staff mesage. DOS Orders Placed and Signed: Yes. Pre-op H&P Done by [employer]: Yes. PATIENT INSTRUCTIONS FOR SURGERY 1.) DO [...] John Humphreys PA-C documented in this encounter [facility] 11-03-2023 Instructions Haily Nunez PA-C - 11/03/2023 1:10 PM EDT PATIENT PREOPERATIVE INSTRUCTIONS Roxana Bah MD has scheduled you for your procedure at this surgery center: [facility] Scheduling Office: [phone] --[address] [place] [address]. Please read below carefully for your personalized [...] call the Thursday before. Your surgeon s hospital security officer will tell you what time to call the office. - If you have not reached the departmental hospital security officer by 5 P.M., call [phone] after 5 P.M. the day before your surgery. Please be aware that emergency situations arise, which may delay or change your surgical time. If this happens, we will notify you as soon as possible and regret any inconvenience. If you already have an Advance Directive, please fax a copy to [phone] or email to for it to be [...] Haily Nunez PA-C documented in this encounter [facility] 11-03-2023 History and physical note Images from [...] any new or worsening cardiac symptoms. Follows coordinating producer in [place] last OV 01/2023. Reports compliance to medication. Denies any history of stents, CABG, reports [facility] x3, most recent ~2017. Recent cardiac testing [...] Pravastatin Paroxysmal atrial fibrillation (HCC) Assessment: Follows coordinating producer Dr. Lozano , last OV 01/2023. Reports [...] have a large neck STOP-Bang Score: 3 [id number] Score: Age: <65 Sex: male CHF history: Yes Hypertension history: Yes Stroke/TIA/thromboembolism history: No Vascular disease history: Yes Diabetes history: No [id number] Score: 3 ARISCAT Score: Age: 51-80 Preoperative [...] SPARING (N/A) at the request of Roxana iDckinson MD for consultation. My final recommendation will [...] fevers. Neurological: No history of TIA's, stroke, SHRIMP PEELING MACHINE TENDER tumor, impaired sensorium, hemiplegia, paraplegia or quadraplegia. [...] and hypertension Patient's last office visit with coordinating producer, Dr. Huff, was 02/2024. The following tests and/or procedures were performed: cardiac catheterization and echocardiogram. Negative for: abdominal aortic aneurysm, AICD/PPM, angina, arrhythmia, chest pain, congenital heart defect, DVT/PE, recent MN, murmur/valvular heart disease, PTCA, PVD, open heart [...] fluticasone (FLONASE) 50 mcg/actuation nasal spray 1 [place]. Taking Yes bicalutamide (CASODEX) 50 mg tablet [...] 364 QTC Calculation (Bazett) 462 Calculated R Milan -36 Calculated T Milan 5 Impression ATRIAL FIBRILLATION LEFT AXIS DEVIATION AGE UNDETERMINED ABNORMAL ECG Recent Results (from the past 63998 hour(s)) ECHO Collection Time: 11/03/23 3:14 PM [...] PM PAGER/CONTACT #: documented in this encounter [facility] 11-03-2023 History of Present illness Narrative RADIOLOGY [...] PATIENT PRESENTS WITH AN IMPLANTABLE OR ATTACHED COW TESTER: No CREATININE: No results found for: CREAT , EGFROTH , EGFRAA P.O.C.T. RESULTS: N/A November 03, [address] PERFORMED: No IV SITE: Ambulatory: A peripheral IV was started in the Left antecubital site with a Angio cath: 22 gauge. POST EXAM PIV STATUS: Discontinued PROCEDURE TYPE: NM Stress: 11.8 mCi In42g-Xplzcpw was administered IV for Rest Imaging at 0915 by carolyn gomez. 31.2 mCi Nt32j-Cbtbzgd was administered IV for Stress Imaging at 1005 by NEMESIO. PATIENT DISCHARGED TO: Ambulatory patient, left IN department area. A Diagnostic radioactive procedure has taken place, with no further precautions necessary other than routine body substance precautions. More information regarding radiation safety can be found using this link: [email or web address] [email or web address] SIGNATURE: RT Channing(Betty) PATIENT [...] ALLERGIES: Reviewed and unchanged MEDICATIONS REVIEWED BY: Dump Worker PROCEDURE TYPE: NM STRESS: 0.4 mg of Lexiscan was administered IV at 1005 by Meredith Cazares RN . Reversal agent used: None. Expiration date: 06/2025 Lot#: [id number] IV SITE: Ambulatory: A Saline lock was inserted per protocol POST EXAM PIV STATUS: Discontinued PATIENT DISCHARGED TO: Ambulatory patient, left IN department area. A Diagnostic radioactive procedure has taken place, with no further precautions necessary other than routine body substance precautions. More information regarding radiation safety can be found using this link: [email or web address] [email or web address] SIGNATURE: Meredith Cazares RN PATIENT NAME: Sukhdeep Gamino DATE: November 03, 2023 TIME: 10:10 AM PAGER/CONTACT #: documented in this encounter [facility] 11-03-2023 Note HNO ID: [id number] Author: YONG HERNÁNDEZ Tech Service: Nuclear Medicine [...] PATIENT PRESENTS WITH AN IMPLANTABLE OR ATTACHED COW TESTER: No CREATININE: No results found for: CREAT , EGFROTH , EGFRAA P.O.C.T. RESULTS: N/A November 03, [address] PERFORMED: No IV SITE: Ambulatory: A peripheral IV was started in the Left antecubital site with a Angio cath: 22 gauge. POST EXAM PIV STATUS: Discontinued PROCEDURE TYPE: NM Stress: 11.8 mCi Ck41y-Iursosy was administered IV for Rest Imaging at 0915 by carolyn gomez. 31.2 mCi Xr71y-Kwupaxb was administered IV for Stress Imaging at [...] 03, 2023 TIME: 9:16 AM PAGER/CONTACT #: [facility] 11-03-2023 Note HNO ID: [id number] Author: MEREDITH CAZARES RN Service: Nursing Author [...] ALLERGIES: Reviewed and unchanged MEDICATIONS REVIEWED BY: Dump Worker PROCEDURE TYPE: NM STRESS: 0.4 mg of Lexiscan was administered IV at 1005 by Meredith Cazares RN . Reversal agent used: None. Expiration date: 06/2025 Lot#: [id number] IV SITE: Ambulatory: A Saline lock was [...] 03, 2023 TIME: 10:10 AM PAGER/CONTACT #: [facility] 11-03-2023 Note Patient Outreach (UR OLMN) SUKHDEEP GAMINO ([id number]) 1960 M Date Time Provider Department 11/03/23 JOHN HUMPHREYS During your visit today, we recorded the following information about you: Allergies As of Date: 11/03/2023 (No Known Allergies) Date Reviewed: 11/03/2023 Reviewed by: John Humphreys PA - Fully Assessed Visit Diagnosis:Screening for genitourinary condition [Z13.89] Order(s):URINALYSIS, REFLEX MICROSCOPIC [KXF0430] Order #: [id number]. #:[id number] Prescriptions as of 11/06/2023 - aspirin, enteric [...] fluticasone (FLONASE) 50 mcg/actuation nasal spray 1 [place]. - bicalutamide (CASODEX) 50 mg tablet Take [...] prostate (HCC) [C61] 08/31/2023 Encounter Status:Closed by [employer] - SHVUSER on 11/06/23 [facility] 10-02-2023 History of Present illness Narrative Images from the original note were not included. Referring Provider: Cesia Weeks Chief Complaint: Prostate cancer HPI Sukhdeep Gamino is a 62 year old male with history of elevated PSA with recent diagnosis of prostate cancer. Most recent PSA 7.8. Underwent prostate biopsy that demonstrated [place] 4+5=9, GG5, 90% highest involvement. Bone scan [...] very high risk prostate cancer (PSA 7.8, [place] 4+6=9, 90% high involvement) with negative bone [...] Roxana Bah MD documented in this encounter [facility] 10-02-2023 Note HNO ID: [id number] Author: ROXANA BAH MD Service: ? Author Type: Physician Type: Progress Notes Filed: 11/08/2023 12:24 Note Text: Referring Provider: Cesia Weeks Chief Complaint: Prostate cancer HPI Sukhdeep Gamino is a 62 year old male with history of elevated PSA with recent diagnosis of prostate cancer. Most recent PSA 7.8. Underwent prostate biopsy that demonstrated [place] 4+5=9, GG5, 90% highest involvement. Bone scan [...] very high risk prostate cancer (PSA 7.8, [place] 4+6=9, 90% high involvement) with negative bone [...] CA Plan : above Roxana Bah MD [facility] 10-02-2023 Note Patient Outreach (UR OLMN) SUKHDEEP GAMINO ([id number]) 1960 M Date Time Provider Department 10/02/23 ROXANA BAH During your visit today, we recorded the following information about you: Allergies As of Date: 10/02/2023 (Not on File) Date Reviewed: 10/02/2023 Reviewed by: Jennyfer Chacon OCCA - Fully Assessed Visit Diagnosis:Screening for genitourinary condition [Z13.89] Order(s):URINALYSIS, REFLEX MICROSCOPIC [[id number]] Order #: [id number]. #:[id number] Prescriptions as of 10/05/2023 - aspirin, enteric [...] fluticasone (FLONASE) 50 mcg/actuation nasal spray 1 [place]. - bicalutamide (CASODEX) 50 mg tablet Take 1 tablet by mouth once daily. 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 Is this request for a [place] PET scan appointment? Yes: Veneer Trimmer: María Schwartz [facility] Requesting Person Dr Weeks: Area Code + Phone/Pager: [phone] Who do we call to schedule this appointment? Other Contact: External Order From [facility] please route to Regine Marcus in [place] for scheduleing pt is approved through [facility] Requesting Staff Dr weeks Area Code + Phone/Pager: [phone] PET Orders (A delay in scheduling will result if the orders are not present at time of review): External. Has the External Clinical Order been scanned into [facility]? Yes ADDITIONAL ACTION MAY BE REQUIRED IF [...] need anesthesia? NO Send requests to P [facility] RE[facility] documented in this encounter [facility] 08-31-2023 Hospital Discharge instructions Patient Education 08/31/2023 [...] under a microscope. This is called the [place] score and the total score can range from 6 10, indicating how likely it is that the cancer will spread (metastasize) to other parts of the body. The higher the score, the greater the likelihood that the cancer will spread. [place] 6 or lower: This indicates that the cancer cells look similar to normal prostate cells (well differentiated). Christine 7: This indicates that the cancer cells look somewhat similar to normal prostate cells (moderately differentiated). [place] 8, 9, or 10: This indicates that [...] stress of having cancer. General instructions Take qxva-una-dahnqem and prescription medicines only as told by your health care provider. If you have to go to the hospital, notify your cancer specialist (oncologist). Keep all follow-up visits. This is important. Where to find more information Citizen [place] Cancer Society: www.cancer.org [place] Society of Clinical Oncology: www.cancer.net National Cancer [place]: www.cancer.gov Contact a health care provider if: [...] provider. Document Revised: 10/16/2021 Document Reviewed: 10/16/2021 [employer] Patient Education 2022 [employer]. Follow Up Care 08/10/2023 12:37:56 With:MICKY GARRISON, Cesia Hernández, URL Address: [facility] [address] , [place] [address]- [phone] When: Unknown Comments:f/u pending results of PSMA and bone scans [facility] 08-26-2023 Evaluation + Plan note Future Scheduled TestsPathology Tissue Exam 08/26/23Pathology Tissue Exam 08/26/23Pathology Tissue Exam 08/26/23Pathology Tissue Exam 08/26/23Pathology Tissue Exam 08/26/23Pathology Tissue Exam 08/26/23Pathology Tissue Exam 08/26/23Pathology Tissue Exam 08/26/23Pathology Tissue Exam 08/26/23Pathology Tissue Exam 08/26/23Pathology Tissue Exam 08/26/23Pathology Tissue Exam 08/26/23 [facility] Hospital Discharge instructions Patient Education [...] discomfort near your rectum, especially while sitting. [place]-colored urine due to small amounts of blood in your urine. A burning feeling while urinating. Blood in your stool (feces) or bleeding from your rectum. Blood in your semen. Follow these instructions at home: Medicines Take exoc-nqi-tyfejmk and prescription medicines only as told by [...] provider. Document Revised: 01/13/2022 Document Reviewed: 01/13/2022 [employer] Patient Education 2022 [employer]. Follow Up Care 08/17/2023 15:34:17 With:MICKY GARRISON, Cesia Hernández, URL Address: [facility] [address], [place] [address]- [phone] When: Unknown Comments:review path on 09/11/23 [facility] [place] 08-10-2023 Note Chief Complaint Referral *Elevated PSA [...] 0.4mg qd. Rx sent to [facility] in [place]. Discussed the medication side effects, and the [...] [facility] [address], [place] [address] [phone] Additional Instructions: sched TRUS/bx Patient Education Transrectal Ultrasound-Guided Prostate Biopsy, Care After Transrectal Ultrasound-Guided Prostate Biopsy Radha Heredia, personally scribed for Dr. Weeks on 08/10/2023 12:29:36. . Documentation recorded by the [place] (more content not included)... [facility] Comment on above: Result Comment: Elec [...] discomfort near your rectum, especially while sitting. [place]-colored urine due to small amounts of blood in your urine. A burning feeling while urinating. Blood in your stool (feces) or bleeding from your rectum. Blood in your semen. Follow these instructions at home: Medicines Take foyh-yat-oiarhrs and prescription medicines only as told by [...] provider. Document Revised: 01/13/2022 Document Reviewed: 01/13/2022 [employer] Patient Education 2022 [employer]. 08/10/2023 12:27:58 Transrectal Ultrasound-Guided Prostate Biopsy Transrectal [...] including vitamins, herbs, eye drops, creams, and ztnt-ech-nqxmcfj medicines. Any problems you or family members [...] provider tells you to take them. Taking fuwv-thy-dtpokpq medicines, vitamins, herbs, and supplements. General instructions [...] provider. Document Revised: 01/13/2022 Document Reviewed: 01/13/2022 [employer] Patient Education 2022 [employer]. Follow Up Care 04/15/2023 08:43:29 With:MICKY GARRISON, Cesia Hernández, URL Address: [facility] [address], [place] [address]- [phone] When: Unknown Comments:sched TRUS/bx [facility] 01-02-2023 Note Continue statin [facility] 01-02-2023 Note Coronary artery dise ase is stable without concerning symptoms Continue GDMT continue risk factor modifications- heart healthy diet, regular exercise as tolerated and continue all medications. [facility] 01-02-2023 Note [facility]- II currently e uvolemic without exacerbation Continue GDMT- ASA, coreg, pravastatin, and lisinopril Diuretic therapy Monitor daily weights, I&O, fluid restriction 1.5-2L/day, renal function and electrolytes- [facility] 01-02-2023 Note B/P elevated today, but he states he rushed here today and typically his b/p is well controlled Continue all meds [facility] 01-02-2023 Note Patient here for 1 y [...] All other systems reviewed and are negative. [facility] 01-02-2023 Note [facility] CARDIOLOGY PROGR ESS NOTE HPI: Sukhdeep Gamino is a 62 y.o. 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 Mixed hyper (more content not included)... [facility] 06-03-2021 History of Present illness Narrative Chief [...] advised to discontinue aspirin, NSAIDs, and specific herbals/dggy-mnp-jhtfsrl's preprocedure. Patient has been advised on preoperative [...] at acceptable cardiac risk based on current [place] College of Cardiology/[place]izen [place] Heart Association (ACC/AHA) guidelines on zehra-operative cardiovascular evaluation and management of patient's undergoing non-cardiac surgery. Patient actively follows with coordinating producer. Have requested correspondence with patient's coordinating producer for additional risk stratification. Addition of requested [...] cardiac enzymes/EKGs as needed. Correspondence with patient's coordinating producer to assure optimization for surgery and obtain [...] screening questionnaire. Patient should be monitored via [place] standard postop NASRIN protocol least continuous pulse [...] to go right total hip replacement at [facility] scheduled for June 26, 2021. Internal Medicine has been consulted for preoperative medical risk stratification. Please see below regarding the status of active medical conditions and assessment and plan for preoperative medical risk stratification. MEDICAL ILLNESSES : 1. Osteoarthritis involving the right hip as above 2. Hypertension diagnosed in 2019 managed by his primary care physician and coordinating producer 3. Chronic atrial fibrillation diagnosed in 2008. [...] underwent more recent updated LHC at [facility] in [facility]. He reports he was noted to have some mild disease but did not require any percutaneous intervention or stents. 5. Congestive heart failure. Patient was initially diagnosed with CHF in 2008 requiring hospitalization associate with underlying A. Fib. He now reports chronic systolic heart failure being treated by his coordinating producer and maintained on Entresto and Carvedilol. He [...] transfusions No Previous Transfusion Related Reactions No Anglican Reasons To Avoid Blood Transfusions No Personal [...] occasional PETERSON. Positive hypertension. Chronic A. fib. Stamp Collector is Dr. Adriana Huff is most recently seen by nurse practitioner April 12, 2021. Patient reports he is undergone 2 previous heart caths one in 2008 and more recently April 2021. Per his description both showed nonobstructive CAD. He also reports undergoing echocardiogram back in 2008 and more recently November 2020 by his coordinating producer. He believes his most recent ejection fraction [...] Yohan Johnson MD documented in this encounter [facility] Evaluation + Plan note Future Appointments Appointment Date:09/11/2023 10:30:00 AM Scheduled Provider:Cesia WEEKS MD Location:[facility] Appointment Type:URO Office Visit [facility] Evaluation note Diagnosis Pain Generalized pain [facility] assessment [facility] Work Phone: Evaluation note* Diagnosis Screening for genitourinary condition Screening for other and unspecified genitourinary condition [facility] Malignant neoplasm of prostate (HCC)- Primary Malignant neoplasm of prostate [facility] Diagnosis Congestive heart failure, unspecified HF chronicity, unspecified heart failure type (HCC)- Primary [facility] Diagnosis Pre-op testing- Primary Preoperative examination, unspecified Prostate cancer (HCC) Malignant neoplasm of prostate Prostate disease Unspecified disorder of prostate Malignant neoplasm of prostate (HCC) Malignant neoplasm of prostate [facility] Diagnosis Malignant neoplasm of prostate (HCC) [...] neoplasm of prostate [facility] Diagnosis Screening for genitourinary condition Screening for other and unspecified genitourinary condition [facility] Diagnosis Prostate cancer (HCC)- Primary Malignant neoplasm of prostate [facility] Diagnosis Prostate cancer (HCC)- Primary Malignant neoplasm of prostate PREETI (stress urinary incontinence), male Stress incontinence, male documented in this encounter [facility] note* Diagnosis Encounter for follow-up surveillance of prostate cancer- Primary Unspecified follow-up examination History of prostate cancer Personal history of malignant neoplasm of prostate PREETI (stress urinary incontinence), male Stress incontinence, male 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 documented in this encounter [facility] note* Diagnosis Pre-op evaluation- Primary Preoperative [...] of organic origin [facility] Diagnosis Pre-op evaluation- Primary Preoperative examination, [...] neoplasm of prostate documented in this encounter [facility] note* Diagnosis Pre-op evaluation- Primary Preoperative [...] neoplasm of prostate documented in this encounter [facility] note* Diagnosis Pre-op evaluation- Primary Preoperative [...] neoplasm of prostate documented in this encounter [facility] note* Diagnosis Pre-op evaluation- Primary Preoperative [...] neoplasm of prostate documented in this encounter [facility] note* Diagnosis Pre-op evaluation- Primary Preoperative [...] neoplasm of prostate documented in this encounter [facility] note* Diagnosis Pre-op evaluation- Primary Preoperative [...] neoplasm of prostate documented in this encounter [facility] course Narrative No data available for this section [facility] progress note No data available for this section [facility] reason for referral (narrative)* Diagnostic Procedure Only (Routine) - Authorized Specialty Diagnoses / Procedures Referred By Contac t Referred To Contact MOLECULAR & FUNCTIONAL IMAGING Diagnoses Malignant neoplasm of prostate (HCC) Procedures NM CARDIAC PERF STRESS/PHARM MYOCARDIAL SPECT MULTIPLE STUDIES Roxana Bah MD [address] [facility] [address] [place] [address] Molecular & Functional Imaging [address] [place] [address] Referral ID Status Reason Start Date Expiration Date Visits Requested Visits Authorized [id number] Authorized Auto-Generate d Referral Financial Clearance Required - OON Payor Patient Cleared - [employer] 10/07/2023 08/02/2024 1 1 [facility] for referral (narrative)* Outpatient Procedure (Routine) - Pending Review Specialty Diagnoses / Procedures [facility] Referred To Contact [facility] [place] Diagnoses Congestive heart failure, unspecified HF chronicity, unspecified heart failure type (HCC) Procedures ECHO ECHO TTHRC R-T 2D W/WOM-MODE COMPL SPEC&COLR D Roxana Bah MD [address] [place] [address] [place] [address] Referral ID Status Reason Start Date Expiration Date Visits Requested Visits Authorized [id number] Pending Review Auto-Generat ed Referral 10/08/2023 10/07/2024 1 1 [facility] for referral (narrative)* Diagnostic Procedure Only (Routine) - Closed Specialty Diagnoses / Procedures [facility] Referred To Contact MOLECULAR & FUNCTIONAL IMAGING Diagnoses Malignant neoplasm of prostate (HCC) Procedures NM CARDIAC PERF STRESS/PHARM MYOCARDIAL SPECT MULTIPLE STUDIES Roxana Bah MD [address] [place] [address] Molecular & Functional Imaging [address] [place] [address] Referral ID Status Reason Start Date Expiration Date V isits Requested Visits Authorized [id number] Closed Auto-Generated Referral Financial Clearance Required - OON Payor Patient Cleared - [employer] 10/07/2023 08/02/2024 1 1 T [facility] for referral (narrative)* Diagnostic Procedure Only (Routine) - Authorized Specialty Diagnoses / Procedures [facility] Referred To Contact MOLECULAR & FUNCTIONAL IMAGING Diagnoses Rising PSA following treatment for malignant neoplasm of prostate Procedures NM PET/CT PROSTATE WHOLE BODY IMAGING PET IMAGING CT ATTENUATION SKULL BASE MID-THIGH Mich Kamara MD [address] [place] [address] [place] [address] Molecular & Functional Imaging [address] [place], [place] [id number] Referral ID Status Reason Start Date Expiration Date Visits Requested Visits Authorized [id number] Authorized Auto-Generat ed Referral 04/28/2024 05/28/2025 1 1 [facility] for referral (narrative)* Diagnostic Procedure Only (Routine) - New Request Specialty Diagnoses / Procedures Referred By Blas villarreal Referred To Contact XR IMAGING Diagnoses Prostate cancer (HCC) Procedures XR FACIAL BONES 3V AP/LAT/WEEKS RADEX FACIAL BONES COMPLETE MINIMUM 3 VIEWS Mich Kamara MD [address] [place] [address] [place] [address] Xr Imaging [place] [address] Referral ID Status Reason Start Date Expiration Date Visits Requested Visits Authorized [id number] New Request Auto-Generat ed Referral 06/22/2025 1 1 [facility] for visit Narrative* Auth/Cert Specialty Diagnoses / Procedures Referred By Blas villarreal Referred To Contact Diagnoses Unilateral primary osteoarthritis, right hip RIGHT HIP PAIN Procedures LA ARTHROPLASTY ACETABULAR AND PROXIMAL FEMORAL PROSTHETIC REPLACEMENT (TOTAL HIP ARTHROPLASTY) WITH OR WITHOUT AUTOGRAFT OR ALLOGRAFT ARTHROPLASTY HIP TOTAL RIGHT ANTERIOR Caryl Acevedo MD [address] [place] [address] Brice Goldstein [place] [address] [place] [address] Referral ID Status Reason Start Date Expiration Date Visits Re quested Visits Authorized [id number] 1 1 [facility] for visit Narrative* Diagnostic Procedure Only (Routine) - Closed Specialty Diagnoses / Procedures Referred By Blas villarreal Referred To Contact MOLECULAR & FUNCTIONAL IMAGING Diagnoses Malignant neoplasm of prostate (HCC) Procedures NM CARDIAC PERF STRESS/PHARM MYOCARDIAL SPECT MULTIPLE STUDIES Roxana Bah MD [address] [facility] [address] [place] [address] Molecular & Functional Imaging [address] [place] [address] Referral ID Status Reason Start Date Expiration Date V isits Requested Visits Authorized [id number] Closed Auto-Generated Referral Financial Clearance Required - OON Payor Patient Cleared - [facility] 10/07/2023 08/02/2024 1 1 [facility] Summary Purpose Family History No Family [...] FoundDocuments on File Type Date Recorded 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 Latest Code Status on File Code Status [...] CERVICAL W/O & W/CONTR Mich Moser MD [address] [place] [address] [place] [address] [place] [address] Referral ID Status Reason Start Date Expiration Date Visits Requested Visits Authorized [id number] New Request Auto-Generat ed Referral 4 06/18/2025 1 1 Specialty Diagnoses / Procedures Referred By Contac t Referred To Contact Diagnoses History of prostate cancer Procedures CT SIM PLANNING RADIATION ONCOLOGY THER RAD SIMULAJ-AIDED FIELD SETTING COMPLEX Mich Kamara MD [address] [place] [address] [place] [address] Referral ID Status Reason Start Date Expiration Date Visits Requested Visits Authorized [id number] New Request PCP Requested Referral 08/17/2024 1 1 Specialty Diagnoses / Procedures Referred By Contac t Referred To Contact Radiation Oncology Diagnoses History of prostate cancer Rising PSA following treatment for malignant neoplasm of prostate Procedures RAD/ONC CONSULT OFFICE/OUTPATIENT NEW HIGH MDM 60 MINUTES Katrina aWrner APRN.DINING ROOM ATTENDANT [place] [address] [place] [address] Referral ID Status Reason Start Date Expiration Date Visits Requested Visits Authorized [id number] Authorized PCP Requested Referral 04/07/2024 04/07/2025 1 1 Specialty Diagnoses / Procedures Referred By Conttristen t Referred To Contact [facility] Diagnoses PREETI (stress urinary incontinence), male Procedures CONSULT TO PHYSICAL THERAPY PHYSICAL THERAPY EVALUATION HIGH COMPLEX 45 MINS Katrina Warner APRN.DINING ROOM ATTENDANT CAFETERIA [address] [place] [address] [facility] [place] [address] [place] [address] Referral ID Status Reason Start Date Expiration Date Visits Requested Visits Authorized [id number] Pending Review PCP Requested Referral Auto-Generate d Referral 12/30/2023 12/29/2024 99 99 Additional Source Comments (unrecognized sect ion and content) No Status Records FoundNo Status Records FoundNo Status Records FoundNo Status Records FoundNo Status Records FoundNo Status Records FoundNo Status Records FoundNo Status Records Found INFORMATION SOURCE (unrecogn ized section and content) DATE CREATED AUTHOR 02/07/2021 [facility] DATE CREATED AUTHOR AUTHOR'S ORGANIZ ATION 06/28/2021 [facility] DATE CREATED AUTHOR AUTHOR'S ORGANIZ ATION 05/29/2022 [facility] DATE CREATED AUTHOR AUTHOR'S ORGANIZ ATION 09/17/2023 [facility] DATE CREATED AUTHOR AUTHOR'S ORGANIZ ATION 09/18/2023 [facility] DATE CREATED AUTHOR AUTHOR'S ORGANIZ ATION 12/29/2023 [facility] DATE CREATED AUTHOR AUTHOR'S ORGANIZ ATION 04/23/2024 [facility] DATE CREATED AUTHOR AUTHOR'S ORGANIZ ATION 05/24/2024 [facility] Reason for Visit (unrecogniz ed section and content) Reason Comments Pre-op Exam Reason Comments Nm Pet Request Reason Comments Pre-Op Teaching Specialty Diagnoses / Procedures Referred By Contac t Referred To Contact ANESTHESIOLOGY Diagnoses Malignant neoplasm of prostate (HCC) Procedures REFER TO PACC - PRE ANESTHESIA CONSULTATION CLINIC OFFICE/OUTPATIENT [facility] 60 MINUTES Roxana Bah MD [address] [place] [address] Pre [facility] Main [address] [place] [address] Referral ID Status Reason Start Date Expiration Date V isits Requested Visits Authorized [id number] Closed PCP Requested Referral Financial Clearance Required - OON Payor Patient Cleared - [facility] 10/06/2023 10/04/2024 1 1 Specialty Diagnoses / Procedures Referred By Contac t Referred To Contact ANESTHESIOLOGY Diagnoses Malignant neoplasm of prostate (HCC) Procedures REFER TO PACC - PRE ANESTHESIA CONSULTATION CLINIC OFFICE/OUTPATIENT [facility] 60 MINUTES Roxana Bah MD [address] [place] [address] [facility] [address] [place] [address] Specialty Diagnoses / Procedures Referred By Contac t Referred To Contact [facility] Diagnoses Prostate Cancer Procedures NEW PATIENT VISIT Cesia Weeks MD [address] [place] [address] [facility] [address] [place] [address] Referral ID Status Reason Start Date Expiration Date V isits Requested Visits Authorized [id number] Closed Financial Clearance Required - OON Payor Patient Cleared - [employer] 09/18/2023 12/17/2023 1 1 Reason Comments Returning [...] MDM 60 MINUTES Katrina Warner APRN.CNP [address] [place] [address] Referral ID Status Reason Start Date Expiration Date V isits Requested Visits Authorized [id number] Closed PCP Requested Referral 04/07/2024 04/07/2025 1 1 Reason Comments Orders Reason Comments Radiology [place] Specialty Diagnoses / Procedures Referred By Contac t Referred To Contact [facility] Diagnoses Rising PSA following treatment for malignant neoplasm of prostate Procedures NM PET/CT PROSTATE WHOLE BODY IMAGING PET IMAGING CT ATTENUATION SKULL BASE MID-THIGH Mich Kamara MD [address] [place] [address] [place] [address] [facility] [address] [id number] Referral ID Status Reason Start Date Expiration Date V isits Requested Visits Authorized [id number] Closed Auto-Generate d Referral 04/28/2024 05/28/2025 1 1 Reason Onset Date Comments Refill Request 05/17/2024 Reason Comments Prostate Cancer Eligard NOT Given Reason Onset Date Comments Simulation Request Form 05/19/2024 Prostate Cancer Reason Comments Orders Care Teams (unrecognized sec tion and content) 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 Relationship Specialty Start Date End Date Alek Fatima MD [address] [place] [address] PCP - General Family Medicine [...] September 14, 2023 End: September 14, 2023 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 Relationship Specialty Start Date End Date Alek Fatima MD [address] [place] [facility] [place] [address] PCP - General Family Medicine 10/14/23 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 Relationship Specialty Start Date End Date Alek Fatima MD [address] [place] [address] PCP - General Family Medicine 10/14/23 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 Relationship Specialty Start Date End Date Alek Fatima MD [address] [place] [address] PCP - General Family Medicine 10/14/23 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 Relationship Specialty Start Date End Date Alek Fatima MD [address] [place] [address] PCP - General Family Medicine 10/14/23 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 Relationship Specialty Start Date End Date Alek Fatima MD [address] [place] [address] PCP - General Family Medicine 10/14/23 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 Relationship Specialty Start Date End Date Alek Fatima MD [address] [place] [address] PCP - General Family Medicine 10/14/23 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 Relationship Specialty Start Date End Date Alek Fatima MD [address] [place] [address] PCP - General Family Medicine 10/14/23 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 Relationship Specialty Start Date End Date Alek Fatima MD [address] [place] [address] PCP - General Family Medicine 10/14/23 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 Relationship Specialty Start Date End Date Alek Fatima MD [address] [place] [address] PCP - General Family Medicine 10/14/23 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 Relationship Specialty Start Date End Date Alek Fatima MD [address] [place] [address] PCP - General Family Medicine 10/14/23 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 Relationship Specialty Start Date End Date Alek Fatima MD [address] [place] [address] PCP - General Family Medicine 10/14/23 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 Relationship Specialty Start Date End Date Alek Fatima MD [address] [place] [address] PCP - General Family Medicine 10/14/23 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 Relationship Specialty Start Date End Date Alek Fatima MD [address] [place] [address] PCP - General Family Medicine 10/14/23 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 Relationship Specialty Start Date End Date Alek Fatima MD [address] [place] [address] PCP - General Family Medicine 10/14/23 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 Relationship Specialty Start Date End Date Alek Fatima MD [address] [place] [address] PCP - General Family Medicine 10/14/23 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 Relationship Specialty Start Date End Date Alek Fatima MD [address] [place] [place] [address] PCP - General Family Medicine 10/14/23 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 Relationship Specialty Start Date End Date Alek Fatima MD [address] [place] [address] PCP - General Family Medicine 10/14/23 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 Relationship Specialty Start Date End Date Alek Fatima MD [address] [place] [address] PCP - General Family Medicine 10/14/23 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 Relationship Specialty Start Date End Date Alek Fatima MD [address] [place] [address] PCP - General Family Medicine 10/14/23 Goals [...] or prosecute any alcohol or drug abuse patient.[facility] the event this information is protected by the Federal Confidentiality of Alcohol and Drug Abuse Patient Records regulations: The Federal rules restrict any use of the information to criminally investigate or prosecute any alcohol or drug abuse patient.[facility] the event this information is protected by the Federal Confidentiality of Alcohol and Drug Abuse Patient Records regulations: The Federal rules restrict any use of the information to criminally investigate or prosecute any alcohol or drug abuse patient.[facility] the event this information is protected by the Federal Confidentiality of Alcohol and Drug Abuse Patient Records regulations: The Federal rules restrict any use of the information to criminally investigate or prosecute any alcohol or drug abuse patient.[facility]In the event this information is protected by the Federal Confidentiality of Alcohol and Drug Abuse Patient Records regulations: The Federal rules restrict any use of the information to criminally investigate or prosecute any alcohol or drug abuse patient.[facility]In the event this information is protected by the Federal Confidentiality of Alcohol and Drug Abuse Patient Records regulations: The Federal rules restrict any use of the information to criminally investigate or prosecute any alcohol or drug abuse patient.[facility]In the event this information is protected by the Federal Confidentiality of Alcohol and Drug Abuse Patient Records regulations: The Federal rules restrict any use of the information to criminally investigate or prosecute any alcohol or drug abuse patient.[facility] the event this information is protected by the Federal Confidentiality of Alcohol and Drug Abuse Patient Records regulations: The Federal rules restrict any use of the information to criminally investigate or prosecute any alcohol or drug abuse patient.[facility] the event this information is protected by the Federal Confidentiality of Alcohol and Drug Abuse Patient Records regulations: The Federal rules restrict any use of the information to criminally investigate or prosecute any alcohol or drug abuse patient.[facility] the event this information is protected by the Federal Confidentiality of Alcohol and Drug Abuse Patient Records regulations: The Federal rules restrict any use of the information to criminally investigate or prosecute any alcohol or drug abuse patient.[facility] the event this information is protected by the Federal Confidentiality of Alcohol and Drug Abuse Patient Records regulations: The Federal rules restrict any use of the information to criminally investigate or prosecute any alcohol or drug abuse patient.[facility] the event this information is protected by the Federal Confidentiality of Alcohol and Drug Abuse Patient Records regulations: The Federal rules restrict any use of the information to criminally investigate or prosecute any alcohol or drug abuse patient.[facility] the event this information is protected by the Federal Confidentiality of Alcohol and Drug Abuse Patient Records regulations: The Federal rules restrict any use of the information to criminally investigate or prosecute any alcohol or drug abuse patient.[facility]In the event this information is protected by the Federal Confidentiality of Alcohol and Drug Abuse Patient Records regulations: The Federal rules restrict any use of the information to criminally investigate or prosecute any alcohol or drug abuse patient.[facility] the event this information is protected by the Federal Confidentiality of Alcohol and Drug Abuse Patient Records regulations: The Federal rules restrict any use of the information to criminally investigate or prosecute any alcohol or drug abuse patient.[facility] the event this information is protected by the Federal Confidentiality of Alcohol and Drug Abuse Patient Records regulations: The Federal rules restrict any use of the information to criminally investigate or prosecute any alcohol or drug abuse patient.[facility] the event this information is protected by the Federal Confidentiality of Alcohol and Drug Abuse Patient Records regulations: The Federal rules restrict any use of the information to criminally investigate or prosecute any alcohol or drug abuse patient.[facility]In the event this information is protected by the Federal Confidentiality of Alcohol and Drug Abuse Patient Records regulations: The Federal rules restrict any use of the information to criminally investigate or prosecute any alcohol or drug abuse patient.[facility]In the event this information is protected by the Federal Confidentiality of Alcohol and Drug Abuse Patient Records regulations: The Federal rules restrict any use of the information to criminally investigate or prosecute any alcohol or drug abuse patient.[facility]In the event this information is protected by the Federal Confidentiality of Alcohol and Drug Abuse Patient Records regulations: The Federal rules restrict any use of the information to criminally investigate or prosecute any alcohol or drug abuse patient.[facility] HospitalIn the event this information is protected by the Federal Confidentiality of Alcohol and Drug Abuse Patient Records regulations: The Federal rules restrict any use of the information to criminally investigate or prosecute any alcohol or drug abuse patient.[facility]In the event this information is protected by the Federal Confidentiality of Alcohol and Drug Abuse Patient Records regulations: The Federal rules restrict any use of the information to criminally investigate or prosecute any alcohol or drug abuse patient.[facility]In the event this information is protected by the Federal Confidentiality of Alcohol and Drug Abuse Patient Records regulations: The Federal rules restrict any use of the information to criminally investigate or prosecute any alcohol or drug abuse patient.[facility]In the event this information is protected by the Federal Confidentiality of Alcohol and Drug Abuse Patient Records regulations: The Federal rules restrict any use of the information to criminally investigate or prosecute any alcohol or drug abuse patient.[facility]In the event this information is protected by the Federal Confidentiality of Alcohol and Drug Abuse Patient Records regulations: The Federal rules restrict any use of the information to criminally investigate or prosecute any alcohol or drug abuse patient.[facility]In the event this information is protected by the Federal Confidentiality of Alcohol and Drug Abuse Patient Records regulations: The Federal rules restrict any use of the information to criminally investigate or prosecute any alcohol or drug abuse patient.[facility]In the event this information is protected by the Federal Confidentiality of Alcohol and Drug Abuse Patient Records regulations: The Federal rules restrict any use of the information to criminally investigate or prosecute any alcohol or drug abuse patient.[facility]In the event this information is protected by the Federal Confidentiality of Alcohol and Drug Abuse Patient Records regulations: The Federal rules restrict any use of the information to criminally investigate or prosecute any alcohol or drug abuse patient.[facility]In the event this information is protected by the Federal Confidentiality of Alcohol and Drug Abuse Patient Records regulations: The Federal rules restrict any use of the information to criminally investigate or prosecute any alcohol or drug abuse patient.[facility]In the event this information is protected by the Federal Confidentiality of Alcohol and Drug Abuse Patient Records regulations: The Federal rules restrict any use of the information to criminally investigate or prosecute any alcohol or drug abuse patient.[facility] FOR RECORDS PERTAINING TO PATIENTS WHO ARE [...] BE BASED ON THE PRIMARY CLINICAL RECORDS. [facility] [employer] [facility]. provides no warranty or guarantee of the accuracy or completeness of information in this document.
[2024-05-26 08:31] LABS: Estimated GFR (African America 57 (>=60 mL/min/1.73m^2); Estimated GFR (Non-African Ame 47 (>=60 mL/min/1.73m^2)
--- OUTSIDE RECORDS SUMMARY | 2024-05-31 11:18 | XMS_ITS | CCD ---
Author Organization [facility] CliniSysd Care Team Providers Care Waiter/Waitress Buffet Name Role Phone ELTAHAWY, EHAB A Admitting Unavailable ELTANENITA, EHAB A Attending Unavailable ALEK FATIMA Primary Care Unavailable ALEK FATIMA Referring Unavailable Unavailable Primary Care Provider Alek Masterson MD Primary Care Provider [phone] ALEK FATIMA Primary Care Unavailable CARYL ACEVEDO [...] KUSHAL, DR GASTON Attending Unavailable KUSHAL, DR GATSON Consulting Unavailable ZIEBER, DR ALL Hernández Consulting Unavailable Alek Fatima Primary Care Physician MD Cesia Weeks Attending Provider Unavailable Primary Care Provider UnavailMD Alek Hardwick Primary Care Provider [phone] Cesia WEEKS Attending Unavailable Cesia WEEKS Attending Unavailable Cesia WEEKS Attending Unavailable Alek Fatima Referring Unavailable Cesia Weeks Admitting Unavailable Cesia Weeks Attending Unavailable Cesia Weeks Attending Unavailable Alek Fatima Primary Care Unavailable Cesia Weeks Admsheila Unavailable Alek Fatima MD Primary Care Provider [phone] AIMEE CLEMENT Attending Unavailable JANELL HUFFAB Attending Unavailable Alek Fatima MD Primary Care Provider [phone] VIRAL HERNANDEZ Attending Unavailable VIRAL HERNANDEZ [...] Care Unavailable WARMINSKI, KATRINA Attending Unavailable HOY, ALKE M Primary Care Unavailable HOY, ALEK M Primary Care Unavailable Allergies Allergy Classification Reported Allergen(s) Allergy Type Date of Onset Reaction(s) Facility Unclassified (1 source) 67911,00; Translations: [45919,00] Propensity to adverse reactions (disorder) 9 [facility] Repository (1 source) No Known Medication Allergies; Translations: [No Known Medication Allergies] Propensity to adverse reactions (disorder) [facility] Repository (20 sources) Ciprofloxacin; Translations: [CIPROFLOXACIN] Drug Allergy 4 [facility] Work Phone: Medications Current Medications Medication [...] on above: Take 2 tablets by mo [facility] every 8 hours as needed for [...] day(s), # 14 tab(s), Refills(s) 0, Pharmacy: [facility] 1429, 178, cm, 08/10/23 11:30:00 EST, [...] DIRECTED 07/12/2023 Active take 1 capsule by [facility] at bedtime, then take 1 capsule by mouth every twenty-four hours dilTIAZem CD (CARDIZEM CD) 120 mg 24 hr capsule Take 120 mg by mouth at bedtime. 0 Suspended Comment on above: TAKE 1 CAPSULE BY [facility] ONCE DAILY DIRECTED DilTIAZem (Eqv-Cardizem CD) 120 mg/24 hours oral capsule, extended release (3 sources) Start: 08-10-2023 DilTIAZem (Eqv-Cardizem CD) 120 mg/24 hours oral capsule, extended release Refills(s) 0 Start Date: 08/10/23 Status: Ordered fluticasone propionate 0.05 mg/actuat metered dose nasal spray (20 sources) Corticosteroid fluticasone (GRETTA NASE) 50 mcg/actuation nasal spray 1 [employer]. Active take 1 spray(s) nasal route twic e daily fluticasone propionate (Flonase Allergy Relief) 50 mcg/actuation nasal spray Administer 1 spray into each nostril 2 (two) times a day. Shake gently. Before first use, prime pump. After use, clean tip and replace cap. 0 Suspended Comment on above: 1 [employer]. iv contrast (will be provided with radiology [...] Comment on above: Take 1 capsule by [facility] two times a day. docusate sodium 100 mg oral capsule (6 sources) Start: End: take 1 capsule by mouth twice daily docusate sodium (COLACE) 100 mg capsule Take 1 capsule by mouth two times a day. 60 capsule 0 11/06/2023 11/18/2023 Discontinued (Course of therapy completed) Comment on above: Take 1 capsule by [facility] two times a day. 24 hr oxybutynin [...] Comment on above: Take 1 tablet by [facility] once daily as needed (bladder spasms) [...] completed) Start: 08-10-2023 take 1 capsule by [facility] once daily tamsulosin 0.4 mg Cap 0.4 mg = 1 cap(s), Oral, Daily, # 30 cap(s), Refills(s) 11, Pharmacy: [facility] 1429, 178, cm, 08/10/23 11:30:00 EST, [...] Test Name Value Interpretation Reference Range Facility [facility] 05-23-2024 [facility] Telephone (RADTSA) STEVENSONSUKHDEEP ([id number]) 1960 M Date Time Provider Department 05/23/24 ROXY ARMSTRONG During your visit today, we recorded the following information about you: Roxy Armstrong RN 05/23/2024 1:41 PM Signed Call received from [facility]- 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 They need to get an order for XRay ORbits to make sure he does not have any metal. Please sign and we will fax to [facility]. BOY Herring Angela, RN 05/23/2024 3:14 PM Signed Order faxed to [facility]. Roxy Armstrong RN Allergies As of Date: 05/23/2024 Noted Allergy Reaction CIPROFLOXACIN 11/12/2023 4 - Hives Date Reviewed: 04/28/2024 Reviewed by: Divina Braswell LPN - Fully Assessed Reason for Visit: Orders [681] Primary Visit Diagnosis:Prostate cancer (HCC) [C61] Order(s):XR FACIAL BONES 3V AP/LAT/WEEKS [[id number]] Order #: [id number] FUTURE Prescriptions as of 05/23/2024 - Tadalafil [...] fluticasone (FLONASE) 50 mcg/actuation nasal spray 1 [employer]. Problem List As Of Date 05/23/2024 Noted [...] by [facility] Telephone (RADKESHAA) SUKHDEEP GAMINO ([id number]) 1960 M Date Time Provider Department 05/20/24 [place] KAMARA During your visit today, we recorded the following information about you: Roxy Armstrong RN 05/20/2024 1:17 PM Signed Please sign pended Creat for [facility]. BOY Herring Angela, RN 05/23/2024 8:48 AM Signed Order Signed. Roxy Armstrong RN Allergies As of Date: 05/20/2024 Noted Allergy Reaction CIPROFLOXACIN 11/12/2023 4 - Hives Date Reviewed: 04/28/2024 Reviewed by: Divina Braswell LPN - Fully Assessed Primary Visit Diagnosis:Malignant neoplasm of prostate (HCC) [C61] Order(s):CREATININE BLD [SQCRET] Order #: [id number] FUTURE Prescriptions as of 05/23/2024 - Tadalafil [...] fluticasone (FLONASE) 50 mcg/actuation nasal spray 1 [employer]. Problem List As Of Date 05/20/2024 Noted [...] Encounter Status:Closed by ROXY ARMSTRONG on 05/23/24 [facility] CNOVon 05-19-2024 CNOV Office Visit (RADTSA ) SUKHDEEP GAMINO ([id number]) 1960 Date Time Provider Department 05/19/24 11:45 [...] of prostate (HCC) [C61] Order(s):TREATMENT PARAMETER-NOT NEEDED [[id number]] Order #: [id number]: 1 [facility] NURSING COMMUNICATION [[id number]] Order #: [id number]: 1 BCN NURSING COMMUNICATION [[id number]] Order #: [id number]: 1 STANDING leuprolide 45 mg injection (ELIGARD)Disp: Rfl: NaCl 0.9% iv infusionDisp: Rfl: diphenhydrAMINE 50 mg injection (BENADRYL)Disp: Rfl: hydrocortisone sodium succinate 100 mg injection (Solu-CORTEF)Disp: Rfl: EPINEPHrine 0.3 mg injection - ANAPHYLAXIS (IM only)Disp: Rfl: BCN NURSING COMMUNICATION [[id number]] Order #: [id number]: 1 STANDING [facility] NURSING COMMUNICATION [[id number]] Order #: [id number]: 1 STANDING sodium chloride 0.9 % (flush) 10-20 mL (BD POSIFLUSH)Disp: Rfl: sodium chloride 0.9 % (flush) 10-20 mL (BD POSIFLUSH)Disp: Rfl: N NURSING COMMUNICATION [[id number]] Order #: [id number]: 1 STANDING [facility] NURSING COMMUNICATION [[id number]] Order #: [id number]: 1 STANDING Prescriptions as of 05/19/2024 - [...] fluticasone (FLONASE) 50 mcg/actuation nasal spray 1 [employer]. Facility-Administered Medications as of 05/19/2024 - leuprolide [...] Encounter Status:Closed by ROXY ARMSTRONG on 05/19/24 [facility] CNOV Office Visit (RADTSA ) SUKHDEEP GAMINO ([id number]) 1960 M Date Time Provider Department 05/19/24 [...] with prostate adenocarcinoma, initial PSA 7.9, biopsy Sells score 4 + 5 = 9 (grade [...] any questions regarding this interpretation, please call [phone]. If you are unable to reach us at the number above, please feel free to contact [facility] at [phone]. Results-Findings * * *Final Report* * * [...] * Prostate Cancer Grade: Grade Group 5 (Sells score 4 + 5) * PSA: 0.18 [...] avid mass. (more content not included)... Normal [facility] PET/CT PROSTATE WBon 10- [place] PET/CT PROSTATE WB * * *Final Report* [...] Scattered non- (more content not included)... Normal [facility] CNOVon 04-28-2024 CNOV Office Visit (RADTSA ) SUKHDEEP GAMINO ([id number]) 1960 M Date Time Provider Department 04/28/24 [...] ultrasound-guided biopsy on 08/25/2023, with finding of Sells grade group 5 (4+5) from the left [...] using tad (more content not included)... [facility] Telephone (DAVIDAP) SUKHDEEP GAMINO ([id number]) 1960 M Date Time Provider Department 04/28/24 [place] KAMARA During your visit today, we recorded the following information about you: Misty Sher HUC 04/28/2024 11:19 AM Signed This form is used for MAIN CAMPUS APPOINTMENTS ONLY. Is this request for a [place] PET scan appointment? Yes: Risk Control Product Liability Director: OSWALDO Ramirez Requesting Person (Last Name, First Name): Sherif Area Code + Phone/Pager: [phone] Who do we call to schedule this appointment? Other Contact: [facility] PET in [place], Route to [facility] to schedule. Requesting Staff Sherif Area Code + Phone/Pager: [phone] PET Orders (A delay in scheduling will [...] 04/28/2024 4:08 PM Signed [facility] Comments for Forensic Investigator: Joseph Will the patient need anesthesia: No Primary Insurance: Medicare B Effective Date: 04-26-24 Date of Initial PET: N/A Cancer Type: Prostate Cancer Date of Subsequent PET scan: Pend scheduling S1 ABN Required: No Diagnosis: Rising PSA following treatment for malignant neoplasm of prostate [R97.21] Initial/Subsequent: Subsequent Pathology: 11-05-23 Prostate, radical prostatectomy: - Prostatic adenocarcinoma, Sells score 4+4=8 Grade Group 4 Labs: 04-26-24 [...] F-18 flotufolastat,18F flotufolastat Pos[place] GA68 [facility] PET 25240/LOCAMETZ (Gallium GA-68 Gozetotide) (6 mCi) A9800 - [place] (Flotufolastat F18) (8mCi), A9608 - Region Auth#: Date Range: NPI: Member ID: Medicare Site/Contact: Case/Ref#: Notes: Route to or Requested Scheduling Pool: P PET COLOR MAKER FORMULATOR Naomi BROWER CLERICAL POOL([place]), Naomi [employer] [employer] Allergies As of Date: 04/28/2024 Noted Allergy Reaction CIPROFLOXACIN 11/12/2023 4 - Hives Date Reviewed: 04/28/2024 Reviewed by: Divina Braswell LPN - Fully Assessed Reason for Visit: Nm Pet Request [[id number]] Prescriptions as of 05/17/2024 - Tadalafil (CIALIS) [...] fluticasone (FLONASE) 50 mcg/actuation nasal spray 1 [employer]on. Problem List As Of Date 04/28/2024 Noted [...] Encounter Status:Closed by MISTY SHER on 05/17/24 [facility] Telephone (RADTSA) SUKHDEEP GAMINO ([id number]) 1960 Date Time Provider Department 04/28/24 [place] [...] fluticasone (FLONASE) 50 mcg/actuation nasal spray 1 [employer]. Problem List As Of Date 04/28/2024 Noted [...] Status:Closed by CHARLENE REYNOSO on 05/04/24 Normal [facility] PSA SerPl-mCncon 04-26-2024 Prostate specific Ag [Mass/Vol] 0.18 ng/mL Normal <2.60 [facility] Comment on above: Order Comment: Speci men Type: BLOOD SPECIMENOrdering Facility: [facility] Address: [address] [place] [address] Result Comment: Tota l PSA test methodology used is the Electrochemiluminescence Immunoassay by [employer]. Total PSA values by differing methodologies cannot be interchanged. Performed By: #### 2 857-1 ####[facility] LABCLIA [id number] [address] STATES OF [facility] PSA SerPl-mCncon 03-31-2024 Prostate specific Ag [Mass/Vol] 0.12 ng/mL Normal <2.60 [facility] Comment on above: Order Comment: Speci men Type: BLOOD SPECIMENOrdering Facility: [facility] Address: [address] [place] [address] Result Comment: Tota l PSA test methodology used is the Electrochemiluminescence Immunoassay by [employer]. Total PSA values by differing methodologies cannot be interchanged. Performed By: #### 2 857-1 ####[facility] LABCLIA [id number] [place] [id number] [place] Office Visiton 12-29-2023 Follow-up visit [id number] Saldana 1960 M Date Provider Department Center 12/29/2023 [id number], ADRIANA CARD [facility] No family history on file Level of Service:09420 PA OFFICE/OUTPATIENT ESTABLISHED LOW MDM 20 MIN Normal [facility] Orders Onlyon 12-25-2023 Orders Only [id number] Saldana 1960 M Date Provider Department Center 12/25/2023 [id number], HISTORICAL BH CARD [facility] No family history on file Normal [facility] PSA SerPl-mCncon 12-25-2023 Prostate specific Ag [Mass/Vol] 0.03 ng/mL Normal <2.60 [facility] Comment on above: Order Comment: Speci men Type: BLOOD SPECIMENOrdering Facility: [facility] Address: [address] [place] [address] Result Comment: Maykel mera PSA test methodology used is the Electrochemiluminescence Immunoassay by [employer]. Total PSA values by differing methodologies cannot be interchanged. Performed By: #### 2 857-1 ####[facility] LABCLIA [id number] [place] [id number] [facility] [place] 11-16-2023 CNPN Telephone (GLQ) SUKHDEEP GAMINO ([id number]) 1960 Date Time Provider Department 11/16/23 CASI [...] RN, BSN Triage Nurse Department of Urology [facility] Allergies As of Date: 11/16/2023 Noted [...] fluticasone (FLONASE) 50 mcg/actuation nasal spray 1 [employer]. - bicalutamide (CASODEX) 50 mg tablet Take [...] Encounter Status:Closed by CASI ROCHA on 11/16/23 [facility] SU[facility] ([id number]) 1960 M Date Time Provider Department 11/12/23 [...] RN, BSN Triage Nurse Department of Urology [facility] Allergies As of Date: 11/12/2023 (No [...] fluticasone (FLONASE) 50 mcg/actuation nasal spray 1 [employer]on. - bicalutamide (CASODEX) 50 mg tablet Take [...] Status:Closed by CASI ROCHA on 11/12/23 Normal [facility] Telephone (GLQ) SUKHDEEP GAMINO ([id number]) 1960 M Date Time Provider Department 11/12/23 CASI ROCHA GLQ During your visit today, we recorded the following information about you: Csai Rocha, RN 11/12/2023 1:22 PM Signed Spoke to Mr. Gamino. Advised to stop cipro. Keflex has been called in for him. He can take antihistamine as advised. Patient verbalized understanding. All questions answered. Casi Rocha RN, BSN Triage Nurse Department of Urology [facility] Allergies As of Date: 11/12/2023 Noted Allergy Reaction CIPROFLOXACIN 11/12/2023 4 - Hives Date Reviewed: 11/05/2023 Reviewed by: Shahriar Alexis, BOY - Fully Assessed Reason for Visit: Follow Up Phone Call [0169] Prescriptions as of 11/12/2023 - cephALEXin (KEFLEX) [...] fluticasone (FLONASE) 50 mcg/actuation nasal spray 1 [employer]on. - bicalutamide (CASODEX) 50 mg tablet Take [...] Encounter Status:Closed by CASI ROCHA on 11/12/23 [facility] [place] 11-10-2023 [facility] Telephone (GLQ) SUKHDEEP GAMINO ([id number]) 1960 M Date Time Provider Department 11/10/23 [...] RN, BSN Triage Nurse Department of Urology [facility] Allergies As of Date: 11/10/2023 (No [...] fluticasone (FLONASE) 50 mcg/actuation nasal spray 1 [employer]on. - bicalutamide (CASODEX) 50 mg tablet Take [...] Status:Closed by CASI ROCHA on 11/10/23 Normal [facility] Basic metabolic 2000 panelon 11-06-2023 Anion gap [Moles/Vol] 12 mmol/L Normal 9-18 [facility] Comment on above: Order Comment: Speci men Type: BLOOD SPECIMENOrdering Facility: [facility] Address: [address] [place] [address] Performed By: #### 2 4321-2, 2777-1, 29632-6 ####[facility] LABCLIA [id number] [place] [address] [place] Calcium [Mass/Vol] 8.8 mg/dL Normal 8.5-10.2 [facility] Comment on above: Order Comment: Speci men Type: BLOOD SPECIMENOrdering Facility: [facility] Address: [address] [place] [id number] Performed By: #### 2 4321-2, 277-, ####[facility] LABCLIA [id number] [address] [address] [place] Chloride [Moles/Vol] 103 mmol/L Normal 97-105 [facility] Comment on above: Order Comment: Speci men Type: BLOOD SPECIMENOrdering Facility: [facility] Address: [address] [address] Performed By: #### 2 4321-2, 277-, ####[facility] LABIA [id number] [place] [id number] [place] CO2 [Moles/Vol] 21 mmol/L Low 22-30 [facility] Comment on above: Order Comment: Speci men Type: BLOOD SPECIMENOrdering Facility: [facility] Address: [address] [place] [address] Performed By: #### 2 4321-2, 27701-31, ####[facility] LABIA [id number] [place] [id number] [place] Creatinine [Mass/Vol] 1.23 mg/dL High 0.73-1.22 [facility] Comment on above: Order Comment: Speci men Type: BLOOD SPECIMENOrdering Facility: [facility] Address: [address] [place] [address] Performed By: #### 2 4321-2, 27701-31, ####[facility] LABIA [id number] [place] [id number] [place] Creatinine and Glomerular filtration rate.predicted panel (S/P/Bld) 66 mL/min/1.73m??? Normal >=60 [facility] Comment on above: Order Comment: Speci men Type: BLOOD SPECIMENOrdering Facility: [facility] Address: [address], [place] [address] Result Comment: Jamila mated Glomerular Filtration Rate [...] GFR. Performed By: #### 2 4321-2, 2777-, ####[facility] LABCLIA [id number] [address] [address] [place] Glucose [Mass/Vol] 190 mg/dL High 74-99 [facility] Comment on above: Order Comment: Penelope taylor Type: BLOOD SPECIMENOrdering Facility: [facility] Address: [address] [place] [address] Result Comment: The [place] Diabetes Association (ADA) provides guidance for cutoff [...] Standards of Medical Care in Diabetes 2016, [place] Diabetes Association. Diabetes Care. 2016.39(Suppl 1). Performed By: #### 2 4321-2, 27701-31, ####[facility] LABIA [id number] [address] [address] [place] Potassium [Moles/Vol] 4.4 mmol/L Normal 3.7-5.1 [facility] Comment on above: Order Comment: Penelope taylor Type: BLOOD SPECIMENOrdering Facility: [facility] Address: [address] [place] [address] Performed By: #### 2 4321-2, 27701-31, ####[facility] LABCLIA [id number] [place] [address] [place] Sodium [Moles/Vol] 136 mmol/L Normal 136-144 [facility] Comment on above: Order Comment: Speci men Type: BLOOD SPECIMENOrdering Facility: [facility] Address: [address] [place] [address] Performed By: #### 2 4321-2, 2777-1, ####[facility] LABIA [id number] [place] [address] [place] Urea nitrogen [Mass/Vol] 19 mg/dL Normal 9-24 [facility] Comment on above: Order Comment: Speci men Type: BLOOD SPECIMENOrdering Facility: [facility] Address: [address] [address] Performed By: #### 2 4321-2, 277-, ####[facility] LABIA [id number] [place] [address] [place] CBC W Auto Differential pane l (Bld)on 11-06-2023 Basophils (Bld) [#/Vol] 10*3/uL Normal <0.11 [facility] Comment on above: Order Comment: Speci men Type: BLOOD SPECIMENOrdering Facility: [facility] Address: [address] [address] Performed By: #### 5 7021-8 ####[facility] LABIA [id number] [place] [address] [place] Basophils/100 WBC (Bld) 0.1 % Normal [facility] Comment on above: Order Comment: Speci men Type: BLOOD SPECIMENOrdering Facility: [facility] Address: [address] [place] [address] Performed By: #### 5 7021-8 ####[facility] LABIA [id number] [place] [address] [place] Differential cell count method Nom (Bld) Auto Normal [facility] Comment on above: Order Comment: Speci men Type: BLOOD SPECIMENOrdering Facility: [facility] Address: [address] [place] [address] Performed By: #### 5 7021-8 ####[facility] LABCLIA [id number] [place] [address] [place] Eosinophils (Bld) [#/Vol] 10*3/uL Normal <0.46 [facility] Comment on above: Order Comment: Speci men Type: BLOOD SPECIMENOrdering Facility: [facility] Address: [address] [place] [address] Performed By: #### 5 7021-8 ####[facility] LABCLIA [id number] [place] [address] [place] Eosinophils/100 WBC (Bld) 0.0 % Normal [facility] Comment on above: Order Comment: Speci men Type: BLOOD SPECIMENOrdering Facility: [facility] Address: [address] [place] [address] Performed By: #### 5 7021-8 ####[facility] LABCLIA [id number] [place] [address] [place] Erythrocyte distribution width (RBC) [Ratio] 13.1 % Normal 11.5-15.0 [facility] Comment on above: Order Comment: Speci men Type: BLOOD SPECIMENOrdering Facility: [facility] Address: [address] [place] [address] Performed By: #### 5 7021-8 ####[facility] LABCLIA [id number] [place] [address] [place] Hematocrit (Bld) [Volume fraction] 34.5 % Low 39.0-51.0 [facility] Comment on above: Order Comment: Speci men Type: BLOOD SPECIMENOrdering Facility: [facility] Address: [address] [place] [address] Performed By: #### 5 7021-8 ####[facility] LABCLIA [id number] [place] [address] [place] Hemoglobin (Bld) [Mass/Vol] 11.7 g/dL Low 13.0-17.0 [facility] Comment on above: Order Comment: Speci men Type: BLOOD SPECIMENOrdering Facility: [facility] Address: [address] [place] [address] Performed By: #### 5 7021-8 ####[facility] LABCLIA [id number] [place] [address] [place] Immature granulocytes (Bld) [#/Vol] 0.04 10*3/uL Normal <0.10 [facility] Comment on above: Order Comment: Speci men Type: BLOOD SPECIMENOrdering Facility: [facility] Address: [address] [place] [address] Performed By: #### 5 7021-8 ####[facility] LABCLIA [id number] [place] [address] [place] Immature granulocytes/100 WBC (Bld) 0.5 % Normal [facility] Comment on above: Order Comment: Speci men Type: BLOOD SPECIMENOrdering Facility: [facility] Address: [address] [address] Performed By: #### 5 7021-8 ####[facility] LABCLIA [id number] [place] [address] [place] Lymphocytes (Bld) [#/Vol] 0.59 10*3/uL Low 1.00-4.00 [facility] Comment on above: Order Comment: Speci men Type: BLOOD SPECIMENOrdering Facility: [facility] Address: [address] [address] [address] Performed By: #### 5 7021-8 ####[facility] LABCLIA [id number] [address] [place] Lymphocytes/100 WBC (Bld) 7.3 % Normal [facility] Comment on above: Order Comment: Speci men Type: BLOOD SPECIMENOrdering Facility: [facility] Address: [address] [place] [address] Performed By: #### 5 7021-8 ####[facility] LABCLIA [id number] [place] [address] [place] MCH (RBC) [Entitic mass] 30.0 pg Normal 26.0-34.0 [facility] Comment on above: Order Comment: Speci men Type: BLOOD SPECIMENOrdering Facility: [facility] Address: [address] [place] [address] Performed By: #### 5 7021-8 ####[facility] LABCLIA [id number] [place] [address] [place] MCHC (RBC) [Mass/Vol] 33.9 g/dL Normal 30.5-36.0 [facility] Comment on above: Order Comment: Speci men Type: BLOOD SPECIMENOrdering Facility: [facility] Address: [address] [place] [address] Performed By: #### 5 7021-8 ####[facility] LABIA [id number] [place] [address] [place] MCV (RBC) [Entitic vol] 88.5 fL Normal 80.0-100.0 [facility] Comment on above: Order Comment: Speci men Type: BLOOD SPECIMENOrdering Facility: [facility] Address: [address] [place] [address] Performed By: #### 5 7021-8 ####[facility] LABCLIA [id number] [place] [address] [place] Monocytes (Bld) [#/Vol] 0.56 10*3/uL Normal <0.87 [facility] Comment on above: Order Comment: Speci men Type: BLOOD SPECIMENOrdering Facility: [facility] Address: [address] [place] [address] Performed By: #### 5 7021-8 ####[facility] LABCLIA [id number] [place] [address] [place] Monocytes/100 WBC (Bld) 6.9 % Normal [facility] Comment on above: Order Comment: Speci men Type: BLOOD SPECIMENOrdering Facility: [facility] Address: [address] [place] [address] Performed By: #### 5 7021-8 ####[facility] LABCLIA [id number] [place] [address] [place] Neutrophils (Bld) [#/Vol] 6.87 10*3/uL Normal 1.45-7.50 [facility] Comment on above: Order Comment: Speci men Type: BLOOD SPECIMENOrdering Facility: [facility] Address: [address] [place] [address] Performed By: #### 5 7021-8 ####[facility] LABCLIA [id number] [place] [address] [place] Neutrophils/100 WBC (Bld) 85.2 % Normal [facility] Comment on above: Order Comment: Speci men Type: BLOOD SPECIMENOrdering Facility: [facility] Address: [address] [place] [address] Performed By: #### 5 7021-8 ####[facility] LABCLIA [id number] [place] [address] [place] Nucleated RBC (Bld) [#/Vol] 10*3/uL Normal <0.01 [facility] Comment on above: Order Comment: Speci men Type: BLOOD SPECIMENOrdering Facility: [facility] Address: [address] [address] Performed By: #### 5 7021-8 ####[facility] LABCLIA [id number] [place] [address] [place] Nucleated RBC/100 WBC (Bld) [Ratio] 0.0 /100 WBC Normal [facility] Comment on above: Order Comment: Speci men Type: BLOOD SPECIMENOrdering Facility: [facility] Address: [address] [place] [address] Performed By: #### 5 7021-8 ####[facility] LABCLIA [id number] [place] [address] [place] Platelet mean volume (Bld) [Entitic vol] 8.2 fL Low 9.0-12.7 [facility] Comment on above: Order Comment: Speci men Type: BLOOD SPECIMENOrdering Facility: [facility] Address: [address] [place] [address] Performed By: #### 5 7021-8 ####[facility] LABCLIA [id number] [place] [address] [place] Platelets (Bld) [#/Vol] 238 10*3/uL Normal 150-400 [facility] Comment on above: Order Comment: Speci men Type: BLOOD SPECIMENOrdering Facility: [facility] Address: [address] [place] [address] Performed By: #### 5 7021-8 ####[facility] LABCLIA [id number] [place] [address] [place] RBC (Bld) [#/Vol] 3.90 10*6/uL Low 4.20-6.00 [facility] Comment on above: Order Comment: Speci men Type: BLOOD SPECIMENOrdering Facility: [facility] Address: [address] [place] [address] Performed By: #### 5 7021-8 ####[facility] LABCLIA [id number] [place] [address] [place] WBC (Bld) [#/Vol] 8.07 10*3/uL Normal 3.70-11.00 [facility] Comment on above: Order Comment: Speci men Type: BLOOD SPECIMENOrdering Facility: [facility] Address: [address] [place], [place] [address] Performed By: #### 5 7021-8 ####[facility] LABCLIA [id number] [facility] [id number] [id number] [facility] [place] CNDSon 11-06-2023 CNDS HNO ID: [id number] Author: ROXANA BAH MD Service: Urology Author Type: Physician Type: Discharge Summary Filed: 11/28/2023 10:20 Note Text: [place] [address] or (194) [facility] DISCHARGE SUMMARY Patient Name: Sukhdeep Gamino Patient [...] Your Medications These medications were sent to [facility] [address] [place] [address] [address] [facility] [phone] [address] acetaminophen 500 mg tablet apixaban 2.5 mg tab(s) ciprofloxacin HCl 500 mg tablet docusate sodium 100 mg capsule oxybutynin XL 5 mg 24 hr tablet oxyCODONE IR 5 mg immediate release tablet No future appointments. ELECTRONICALLY SIGNED: Nayely Flor MD [facility] ECG COMPLETEon 11-06-2023 ECG COMPLETE Ventricular Rate : 1 20 BPM QRS Duration : 78 ms Q-T Interval : 346 ms QTC Calculation(Bazett) : 489 ms Calculated R [place] : -41 degrees Calculated T [place] : 7 degrees ATRIAL FIBRILLATION WITH RAPID VENTRICULAR RESPONSE LEFT AXIS DEVIATION LOW VOLTAGE QRS, CONSIDER PULMONARY DISEASE, PERICARDIAL EFFUSION, OR NORMAL VARIANT INFERIOR MYOCARDIAL INFARCTION , AGE UNDETERMINED ABNORMAL ECG Confirmed by ALEXSANDRA ADLER M.D. ([id number]) on 11/12/2023 4:53:17 PM NAME : SUKHDEEP GAMINO PID : [id number] : 1960 Gender : Male Race : Unknown ORD : [id number] Procedure Date : Nov 06 2023 02:48:19 [...] Location : 314 : [address] [place] [address] Overread By : ALEXSANDRA ADLER M.D. Edited By : ALEXSANDRA ADLER M.D. Referred By : , Acquired by : HELADIO DUENAS Normal [facility] Magnesium [facility] 11-05 Magnesium [Mass/Vol] 2.1 mg/dL Normal 1.7-2.3 [facility] Comment on above: Order Comment: Speci men Type: BLOOD SPECIMENOrdering Facility: [facility] Address: [address] [address] Performed By: #### 2 4321-2, 2777-1, 67913-2 ####[facility] LABCLIA [id number] [address] [place] NURSING PROGon 11-06-2023 NURSING PROG HNO ID: [id number] Author: SHAHRIAR ALEXIS RN Service: ? Author Type: Registered Nurse Type: Nursing Progress Note Filed: 11/06/2023 05:43 Note Text: Nursing Progress Note Topic of Note: Daily Note PATIENT NAME: Sukhdeep Gamino Patient Location: [place] [address]/[facility] Room: [place] [address] 2247 HR 102-119, asymptomatic, Dr. Flori Ochoa [...] This note was completed by: Shahriar Pedro [facility] Phosphate SerPl-ncon 11-05 Phosphate [Mass/Vol] 2.3 mg/dL Low 2.7-4.8 [facility] Comment on above: Order Comment: Speci men Type: BLOOD SPECIMENOrdering Facility: [facility] Address: [address] [place] [address] Performed By: #### 2 4321-2, 2777-1, 54262-9 ####[facility] LABCLIA [id number] [place] [address] [place] ANES POSTPROC EVALon 024 ANES POSTPROC EVAL HNO ID: [id number] Author: KATHY LINDO MD Service: ? Author Type: Anesthesiologist Type: Anesthesia Postprocedure Evaluation Filed: 11/05/2023 18:48 Note Text: POST ANESTHESIA EVALUATION NOTE : 1960 Procedure Summary Date: 11/05/23 Room / Location: [address] [place] Anesthesia Start: 1253 Anesthesia Stop: [...] November 05, 2023 TIME: 6:48 PM CSN: [id number] Normal [facility] ANES PRE-OPon 11-05-2023 ANES PRE-OP HNO ID: [id number] Author: KATHY LINDO MD Service: ? Author [...] and consent discussed: yes. Patient / Responsible [employer] Party agrees to proceed: yes Patient / [...] fluticasone (FLONASE) 50 mcg/actuation nasal spray 1 [place]. I have interviewed and examined the patient. I have reviewed the medical record and/or the pre-anesthesia evaluation, pertinent labs, and test results. This contains updated information obtained within 48 hours of Surgery/Procedure. SIGNATURE: Kathy Lindo MD PATIENT NAME: Sukhdeep Gamino DATE: November 05, 2023 TIME: 12:18 PM CSN: [id number] Normal [facility] BRIEF OP NOTon 11-05-2023 BRIEF OP NOT HNO ID: [id number] Author: RODRÍGUEZ WILKES MD Service: Urology Author Type: Physician Type: Brief Op Note Filed: 11/05/2023 18:04 Note Text: UROLOGY SERVICE BRIEF OPERATIVE NOTE LOG ID: [id number] Surgery/Procedure Date: 11/05/2023 Incision/Procedure Start Time: 1:35 PM Incision Close/Procedure End Time: 5:57 PM Patient Age: [age] year old Surgeon(s)/Proceduralist(s) and Help Desk Supervisor(s): Surgeon(s) and Role: * Roxana Bah MD [...] 2023 TIME: 6:02 PM PAGER/CONTACT #: Normal [facility] Basic metabolic 2000 panelon 11-05-2023 Anion gap [Moles/Vol] 12 mmol/L Normal 9-18 [facility] Comment on above: Order Comment: Speci men Type: BLOOD SPECIMENOrdering Facility: [facility] Address: [address] [place] [place] [id number] Performed By: #### 2 4321-2 ####[facility] LABCLIA [id number] [place] [address] [place] Calcium [Mass/Vol] 8.5 mg/dL Normal 8.5-10.2 [facility] Comment on above: Order Comment: Speci men Type: BLOOD SPECIMENOrdering Facility: [facility] Address: [address] [address] Performed By: #### 2 4321-2 ####[facility] LABCLIA [id number] [place] [address] [place] Chloride [Moles/Vol] 106 mmol/L High 97-105 [facility] Comment on above: Order Comment: Speci men Type: BLOOD SPECIMENOrdering Facility: [facility] Address: [address] [place] [address] Performed By: #### 2 4321-2 ####[facility] LABCLIA [id number] [place] [address] [place] CO2 [Moles/Vol] 21 mmol/L Low 22-30 [facility] Comment on above: Order Comment: Speci men Type: BLOOD SPECIMENOrdering Facility: [facility] Address: [address] [place], [place] [address] Performed By: #### 2 4321-2 ####[facility] LABCLIA [id number] [place] [id number] [place] Creatinine [Mass/Vol] 1.29 mg/dL High 0.73-1.22 [facility] Comment on above: Order Comment: Speci men Type: BLOOD SPECIMENOrdering Facility: [facility] Address: [address] [place], [place] [address] Performed By: #### 2 4321-2 ####[facility] LABCLIA [id number] [place] [address] [place] Creatinine and Glomerular filtration rate.predicted panel (S/P/Bld) 62 mL/min/1.73m??? Normal >=60 [facility] Comment on above: Order Comment: Penelope taylor Type: BLOOD SPECIMENOrdering Facility: [facility] Address: [address] [place] [address] Result Comment: Jamila mated Glomerular Filtration Rate [...] actual GFR. Performed By: #### 2 4321-2 ####[facility] LABCLIA [id number] [place] [address] [place] Glucose [Mass/Vol] 134 mg/dL High 74-99 [facility] Comment on above: Order Comment: Penelope taylor Type: BLOOD SPECIMENOrdering Facility: [facility] Address: [address] [place] [address] Result Comment: The [place] Diabetes Association (ADA) provides guidance for cutoff [...] Standards of Medical Care in Diabetes 2016, [place] Diabetes Association. Diabetes Care. 2016.39(Suppl 1). Performed By: #### 2 4321-2 ####[facility] LABCLIA [id number] [place] [address] [place] Potassium [Moles/Vol] 4.6 mmol/L Normal 3.7-5.1 [facility] Comment on above: Order Comment: Speci men Type: BLOOD SPECIMENOrdering Facility: [facility] Address: [address] [address] Performed By: #### 2 4321-2 ####[facility] LABIA [id number] [place] [address] [place] Sodium [Moles/Vol] 139 mmol/L Normal 136-144 [facility] Comment on above: Order Comment: Speci men Type: BLOOD SPECIMENOrdering Facility: [facility] Address: [address] [address] Performed By: #### 2 4321-2 ####[facility] LABIA [id number] [place] [address] [place] Urea nitrogen [Mass/Vol] 25 mg/dL High 9-24 [facility] Comment on above: Order Comment: Speci men Type: BLOOD SPECIMENOrdering Facility: [facility] Address: [address] [place] [address] Performed By: #### 2 4321-2 ####[facility] LABIA [id number] [place] [address] [place] CBC W Auto Differential pane l (Bld)on 11-05-2023 Basophils (Bld) [#/Vol] 0.03 10*3/uL Normal <0.11 [facility] Comment on above: Order Comment: Speci men Type: BLOOD SPECIMENOrdering Facility: [facility] Address: [address] [place] [address] Performed By: #### 5 7021-8 ####[facility] LABIA [id number] [place] [address] [place] Basophils/100 WBC (Bld) 0.3 % Normal [facility] Comment on above: Order Comment: Speci men Type: BLOOD SPECIMENOrdering Facility: [facility] Address: [address] [address] Performed By: #### 5 7021-8 ####[facility] LABCLIA [id number] [place] [address] [place] Differential cell count method Nom (Bld) Auto Normal [facility] Comment on above: Order Comment: Speci men Type: BLOOD SPECIMENOrdering Facility: [facility] Address: [address] [address] Performed By: #### 5 7021-8 ####[facility] LABCLIA [id number] [place] [address] [place] Eosinophils (Bld) [#/Vol] 10*3/uL Normal <0.46 [facility] Comment on above: Order Comment: Speci men Type: BLOOD SPECIMENOrdering Facility: [facility] Address: [address] [address] Performed By: #### 5 7021-8 ####[facility] LABCLIA [id number] [place] [address] [place] Eosinophils/100 WBC (Bld) 0.2 % Normal [facility] Comment on above: Order Comment: Speci men Type: BLOOD SPECIMENOrdering Facility: [facility] Address: [address] [address] Performed By: #### 5 7021-8 ####[facility] LABCLIA [id number] [place] [address] [place] Erythrocyte distribution width (RBC) [Ratio] 13.1 % Normal 11.5-15.0 [facility] Comment on above: Order Comment: Speci men Type: BLOOD SPECIMENOrdering Facility: [facility] Address: [address] [address] Performed By: #### 5 7021-8 ####[facility] LABCLIA [id number] [place] [address] [place] Hematocrit (Bld) [Volume fraction] 34.0 % Low 39.0-51.0 [facility] Comment on above: Order Comment: Speci men Type: BLOOD SPECIMENOrdering Facility: [facility] Address: [address] [address] Performed By: #### 5 7021-8 ####[facility] LABCLIA [id number] [place] [address] [place] Hemoglobin (Bld) [Mass/Vol] 11.6 g/dL Low 13.0-17.0 [facility] Comment on above: Order Comment: Speci men Type: BLOOD SPECIMENOrdering Facility: [facility] Address: [address] [address] Performed By: #### 5 7021-8 ####[facility] LABCLIA [id number] [place] [address] [place] Immature granulocytes (Bld) [#/Vol] 0.06 10*3/uL Normal <0.10 [facility] Comment on above: Order Comment: Speci men Type: BLOOD SPECIMENOrdering Facility: [facility] Address: [address] [address] Performed By: #### 5 7021-8 ####[facility] LABCLIA [id number] [place] [address] [place] Immature granulocytes/100 WBC (Bld) 0.7 % Normal [facility] Comment on above: Order Comment: Speci men Type: BLOOD SPECIMENOrdering Facility: [facility] Address: [address] [place] [address] Performed By: #### 5 7021-8 ####[facility] LABCLIA [id number] [place] [address] [place] Lymphocytes (Bld) [#/Vol] 0.39 10*3/uL Low 1.00-4.00 [facility] Comment on above: Order Comment: Speci men Type: BLOOD SPECIMENOrdering Facility: [facility] Address: [address] [place] [address] Performed By: #### 5 7021-8 ####[facility] LABIA [id number] [place] [address] [place] Lymphocytes/100 WBC (Bld) 4.4 % Normal [facility] Comment on above: Order Comment: Speci men Type: BLOOD SPECIMENOrdering Facility: [facility] Address: [address] [place] [address] Performed By: #### 5 7021-8 ####[facility] LABIA [id number] [place] [address] [place] MCH (RBC) [Entitic mass] 30.5 pg Normal 26.0-34.0 [facility] Comment on above: Order Comment: Speci men Type: BLOOD SPECIMENOrdering Facility: [facility] Address: [address] [place] [address] Performed By: #### 5 7021-8 ####[facility] LABIA [id number] [place] [address] [place] MCHC (RBC) [Mass/Vol] 34.1 g/dL Normal 30.5-36.0 [facility] Comment on above: Order Comment: Speci men Type: BLOOD SPECIMENOrdering Facility: [facility] Address: [address] [place] [address] Performed By: #### 5 7021-8 ####[facility] LABIA [id number] [place] [address] [place] MCV (RBC) [Entitic vol] 89.5 fL Normal 80.0-100.0 [facility] Comment on above: Order Comment: Speci men Type: BLOOD SPECIMENOrdering Facility: [facility] Address: [address] [place] [address] Performed By: #### 5 7021-8 ####[facility] LABIA [id number] [place] [address] [place] Monocytes (Bld) [#/Vol] 0.26 10*3/uL Normal <0.87 [facility] Comment on above: Order Comment: Speci men Type: BLOOD SPECIMENOrdering Facility: [facility] Address: [address] [place] [address] Performed By: #### 5 7021-8 ####[facility] LABCLIA [id number] [place] [address] [place] Monocytes/100 WBC (Bld) 2.9 % Normal [facility] Comment on above: Order Comment: Speci men Type: BLOOD SPECIMENOrdering Facility: [facility] Address: [address] [place] [address] Performed By: #### 5 7021-8 ####[facility] LABCLIA [id number] [place] [address] [place] Neutrophils (Bld) [#/Vol] 8.13 10*3/uL High 1.45-7.50 [facility] Comment on above: Order Comment: Speci men Type: BLOOD SPECIMENOrdering Facility: [facility] Address: [address] [place] [address] Performed By: #### 5 7021-8 ####[facility] LABCLIA [id number] [place] [address] [place] Neutrophils/100 WBC (Bld) 91.5 % Normal [facility] Comment on above: Order Comment: Speci men Type: BLOOD SPECIMENOrdering Facility: [facility] Address: [address] [place] [address] Performed By: #### 5 7021-8 ####[facility] LABCLIA [id number] [place] [address] [place] Nucleated RBC (Bld) [#/Vol] 10*3/uL Normal <0.01 [facility] Comment on above: Order Comment: Speci men Type: BLOOD SPECIMENOrdering Facility: [facility] Address: [address] [place] [address] Performed By: #### 5 7021-8 ####[facility] LABCLIA [id number] [place] [address] [place] Nucleated RBC/100 WBC (Bld) [Ratio] 0.0 /100 WBC Normal [facility] Comment on above: Order Comment: Speci men Type: BLOOD SPECIMENOrdering Facility: [facility] Address: [address] [place] [address] Performed By: #### 5 7021-8 ####[facility] LABCLIA [id number] [place] [address] [place] Platelet mean volume (Bld) [Entitic vol] 8.0 fL Low 9.0-12.7 [facility] Comment on above: Order Comment: Speci men Type: BLOOD SPECIMENOrdering Facility: [facility] Address: [address] [place] [address] Performed By: #### 5 7021-8 ####[facility] LABIA [id number] [place] [address] [place] Platelets (Bld) [#/Vol] 240 10*3/uL Normal 150-400 [facility] Comment on above: Order Comment: Speci men Type: BLOOD SPECIMENOrdering Facility: [facility] Address: [address] [place] [address] Performed By: #### 5 7021-8 ####[facility] LABCLIA [id number] [place] [address] [place] RBC (Bld) [#/Vol] 3.80 10*6/uL Low 4.20-6.00 [facility] Comment on above: Order Comment: Speci men Type: BLOOD SPECIMENOrdering Facility: [facility] Address: [address] [place] [address] Performed By: #### 5 7021-8 ####[facility] LABIA [id number] [address] [place] [address] [place] WBC (Bld) [#/Vol] 8.89 10*3/uL Normal 3.70-11.00 [facility] Comment on above: Order Comment: Speci men Type: BLOOD SPECIMENOrdering Facility: [facility] Address: [address] [place] [address] Performed By: #### 5 7021-8 ####[facility] LABCLIA [id number] [place] [address] [place] NURSING PROGon 11-05-2023 NURSING PROG HNO ID: [id number] Author: MIRIAM IQBAL, BOY Service: Nursing Author Type: Registered Nurse Type: Nursing Progress Note Filed: 11/05/2023 20:29 Note Text: Transfer Note: PATIENT NAME: Sukhdeep Gamino Patient Location: [place] [address] Room: [place] [address] Patient transferred into room/unit [facility] from PACU in stable condition. Actions taken: No futher actions taken at this time. Will continue to monitor and check with patient. Normal [facility] OPERATIVE NOon 11-05-2023 OPERATIVE NO HNO ID: [id number] Author: ROXANA BAH MD Service: Urology Author Type: Physician Type: Operative Report Filed: 11/29/2023 22:56 Note Text: UROLOGY OPERATIVE REPORT LOG ID: [id number] Surgery/Procedure Date: 11/05/2023 INCISION/PROCEDURE START TIME: 1:35 PM INCISION CLOSE/PROCEDURE END TIME: 5:57 PM Surgeon(s)/Proceduralist(s) and Help Desk Supervisor(s): Surgeon(s) and Role: * Roxana Bah MD [...] one 8-mm robotic port and one 12-mm educational program assistant port was placed on the right. [...] the external iliac artery laterally, node of [place] inferiorly, below the obturator neurovascular bundle posteriorly, [...] prostate (H (more content not included)... Normal [facility] SURGICAL PATHOLOGYon 024 BLOCK FOR ADDITIONAL BIOMARKERS/MOLECULA R STUDIES A20 Normal [facility] Comment on above: Order Comment: Speci men Type: TISSUE SPECIMENOrdering Facility: [facility] Address: [address] [place] [address] Performed By: #### S ####[facility] LABCLIA [id number] [place] [address] [place] CASE REPORT Normal [facility] Comment on above: Order Comment: Speci men Type: TISSUE SPECIMENOrdering Facility: [facility] Address: [address] [place] [address] Result Comment: Surg ica Pathology Report Case: [id number] Authorizing Provider: Roxana Bah MD Collected: 11/05/2023 05:35 PM Ordering Location: Admitting Received: 11/05/2023 06:13 PM Pathologist: Eldon Watkins MD Specimens: A) - PROSTATE RADICAL PROSTATECTOMY, Prostate and seminal vesicles B) - LYMPH NODE, Bilateral pelvic lymph nodes Performed By: #### S ####[facility] LABCLIA [id number] [place] [address] [place] CLINICAL HISTORY Normal [facility] Comment on above: Order Comment: Speci men Type: TISSUE SPECIMENOrdering Facility: [facility] Address: [address] [place] [address] Result Comment: Pre- op diagnosis: Malignant neoplasm of prostate (HCC) [C61] Performed By: #### S ####[facility] [id number] [address] FINAL DIAGNOSIS Normal [facility] Comment on above: Order Comment: Speci men Type: TISSUE SPECIMENOrdering Facility: [facility] Address: [address] [place] [address] Result Comment: John meza, radical prostatectomy: - [...] Absent BIANKA/gautam 11/10/2023 Performed By: #### S ####[facility] LABIA [id number] [address] [place] FINAL PERFORMING LAB Normal [facility] Comment on above: Order Comment: Speci men Type: TISSUE SPECIMENOrdering Facility: [facility] Address: [address] [address] Result Comment: Diag nostic interpretation performed at [facility], [address] [place] [place] [address] CLIA# [id number] Prison Classification Counselor: Gerry Wilson M.D. Performed By: #### S ####[facility] LABCLIA [id number] [place]AR[place]rine [place] [address] [place] GROSS DESCRIPTION Normal [facility] Comment on above: Order Comment: Speci men Type: TISSUE SPECIMENOrdering Facility: [facility] Address: [address] [place] [address] Result Comment: A. P ROSTATE RADICAL PROSTATECTOMY [...] unremarkable. Segments of vas deferens are unremarkable. Keg Inspector sections are submitted as follows: A1. Right [...] possible lymph nodes per cassette, intact B5-6. Keg Inspector fibroadipose tissue Gross examination performed at [facility], [address] [place] [address] CLIA# [id number] 11/06/23 1:56 PM Performed By: #### S ####[facility] LABCLIA [id number] [place] [address] [place] SYNOPTIC REPORT Normal [facility] Comment on above: Order Comment: Speci men Type: TISSUE SPECIMENOrdering Facility: [facility] Address: [address] [place] [address] Result Comment: PROS CAMPOS GLAND: Radical Prostatectomy PROSTATE GLAND: RESECTION - All Specimens 8th Edition - Protocol posted: 04/22/2023 SPECIMEN Procedure: Radical prostatectomy Prostate Size: Prostate Weight (Grams): 38.35 g Prostate Greatest Dimension (Centimeters): 5.2 cm Additional Prostate Dimension (Centimeters): 5.1 cm Additional Prostate Dimension (Centimeters): 3.5 cm TUMOR Histologic Type: Acinar adenocarcinoma, conventional (usual) Histologic Grade: Grade: Grade group 4 (Sells Score 4 + 4 = 8) Intraductal [...] pN Category: pN0 Performed By: #### S ####[facility] LABIA [id number] [address] [place] CBC panel Auto (Bld)on 11-02 Erythrocyte distribution width (RBC) [Ratio] 13.2 % Normal 11.5-15.0 [facility] Comment on above: Order Comment: Speci men Type: BLOOD SPECIMENOrdering Facility: [facility] Address: [address] [place] [address] Performed By: #### 5 8410-2 ####[facility] [id number] [address] [place] Hematocrit (Bld) [Volume fraction] 43.8 % Normal 39.0-51.0 [facility] Comment on above: Order Comment: Speci men Type: BLOOD SPECIMENOrdering Facility: [facility] Address: [address] [place] [address] Performed By: #### 5 8410-2 ####[facility] [id number] [address] [place] Hemoglobin (Bld) [Mass/Vol] 14.3 g/dL Normal 13.0-17.0 [facility] Comment on above: Order Comment: Speci men Type: BLOOD SPECIMENOrdering Facility: [facility] Address: [address] [place] [address] Performed By: #### 5 8410-2 ####[facility] [id number] [place] [address] [place] MCH (RBC) [Entitic mass] 30.0 pg Normal 26.0-34.0 [facility] Comment on above: Order Comment: Speci men Type: BLOOD SPECIMENOrdering Facility: [facility] Address: [address] [place] [address] Performed By: #### 5 8410-2 ####[facility] LABIA [id number] [place] [address] [place] MCHC (RBC) [Mass/Vol] 32.6 g/dL Normal 30.5-36.0 [facility] Comment on above: Order Comment: Speci men Type: BLOOD SPECIMENOrdering Facility: [facility] Address: [address] [address] Performed By: #### 5 8410-2 ####[facility] LABIA [id number] [place] [address] [place] MCV (RBC) [Entitic vol] 92.0 fL Normal 80.0-100.0 [facility] Comment on above: Order Comment: Speci men Type: BLOOD SPECIMENOrdering Facility: [facility] Address: [address] [address] Performed By: #### 5 8410-2 ####[facility] [id number] [place] [address] [place] Nucleated RBC (Bld) [#/Vol] 10*3/uL Normal <0.01 [facility] Comment on above: Order Comment: Speci men Type: BLOOD SPECIMENOrdering Facility: [facility] Address: [address] [address] Performed By: #### 5 8410-2 ####[facility] LABIA [id number] [place] [address] [place] Platelet mean volume (Bld) [Entitic vol] 8.4 fL Low 9.0-12.7 [facility] Comment on above: Order Comment: Speci men Type: BLOOD SPECIMENOrdering Facility: [facility] Address: [address] [address] Performed By: #### 5 8410-2 ####[facility] LABIA [id number] [place] [address] [place] Platelets (Bld) [#/Vol] 338 10*3/uL Normal 150-400 [facility] Comment on above: Order Comment: Speci men Type: BLOOD SPECIMENOrdering Facility: [facility] Address: [address] [address] Performed By: #### 5 8410-2 ####[facility] LABIA [id number] [place] [address] [place] RBC (Bld) [#/Vol] 4.76 10*6/uL Normal 4.20-6.00 [facility] Comment on above: Order Comment: Speci men Type: BLOOD SPECIMENOrdering Facility: [facility] Address: [address] [place] [address] Performed By: #### 5 8410-2 ####[facility] [id number] [place] [address] [place] WBC (Bld) [#/Vol] 9.85 10*3/uL Normal 3.70-11.00 [facility] Comment on above: Order Comment: Speci men Type: BLOOD SPECIMENOrdering Facility: [facility] Address: [address] [address] Performed By: #### 5 8410-2 ####[facility] LABIA [id number] [place] [address] [place] CNOVon 11-03-2023 CNOV Office Visit (UROLMN ) SUKHDEEP GAMINO ([id number]) 1960 M Date Time Provider Department 11/03/23 3:00 PM JOHN HUMPHREYS During your visit today, we recorded the following information about you: John Humphreys PA 11/03/2023 3:06 PM Signed [facility] PRE-OP NOTE Sukhdeep Gamino is a 62 year old male. Pre-op Date: November 03, 2023 Date of Procedure: 11/05/2023 Does the patient have an active COVID-19 test in [facility]? N/A Procedure/Surgery: RALP Diagnosis: prostate cancer Primary [...] scheduled: Yes Consent Signed: Consent not in [facility]. Surgeon notified via staff mesage. DOS Orders [...] ReevesC Electronically signed Referring Provider: ROXANA BAH [[id number]] Allergies As of Date: 11/03/2023 (No Known Allergies) Date Reviewed: 11/03/2023 Reviewed by: John Humphreys PA - Fully Assessed Reason for Visit: Pre-Op Teaching [134] Primary Visit Diagnosis:Pre-op testing [Z01.818] Other Visit Diagnoses:Prostate cancer (HCC) [C61] Prostate disease [N42.9] Order(s):URINE CULTURE [SQURCUL] Order #: [id number] Prescriptions as of 11/03/2023 - aspirin, enteric [...] fluticasone (FLONASE) 50 mcg/actuation nasal spray 1 [place]. - bicalutamide (CASODEX) 50 mg tablet Take [...] Status:Closed by JOHN HUMPHREYS on 11/03/23 Normal [facility] CONFIRM BLOOD TYPEon 024 ABO A Normal [facility] Comment on above: Order Comment: Speci men Type: BLOOD SPECIMENOrdering Facility: [facility] Address: [address] [place] [address] Performed By: #### C ONABO ####CC MAIN BLOOD BANKCLIA [id number] [place] [address] [place] Rh Nom (Bld) Positive Normal [facility] Comment on above: Order Comment: Speci men Type: BLOOD SPECIMENOrdering Facility: [facility] Address: [address] [place] [address] Performed By: #### C ONABO ####CC [facility] BLOOD BANKCLIA [id number] [place] [address] [place] Comprehensive metabolic 2000 panelon 11-03-2023 Albumin [Mass/Vol] 4.5 g/dL Normal 3.9-4.9 [facility] Comment on above: Order Comment: Speci men Type: BLOOD SPECIMENOrdering Facility: [facility] Address: [address] [place] [address] Performed By: #### 2 4323-8 ####[facility] LABCLIA [id number] [place] [address] [place] ALP [Catalytic activity/Vol] 97 U/L Normal 38-113 [facility] Comment on above: Order Comment: Speci men Type: BLOOD SPECIMENOrdering Facility: [facility] Address: [address] [place] [address] Performed By: #### 2 4323-8 ####[facility] LABCLIA [id number] [place] [address] [place] ALT [Catalytic activity/Vol] 19 U/L Normal 10-54 [facility] Comment on above: Order Comment: Speci men Type: BLOOD SPECIMENOrdering Facility: [facility] Address: [address] [place] [id number] Performed By: #### 2 4323-8 ####[facility] LABCLIA [id number] [address] [address] [place] Anion gap [Moles/Vol] 12 mmol/L Normal 9-18 [facility] Comment on above: Order Comment: Speci men Type: BLOOD SPECIMENOrdering Facility: [facility] Address: [address] [place] [address] Performed By: #### 2 4323-8 ####[facility] LABCLIA [id number] [place] [address] [place] AST [Catalytic activity/Vol] 17 U/L Normal 14-40 [facility] Comment on above: Order Comment: Speci men Type: BLOOD SPECIMENOrdering Facility: [facility] Address: [address] [place] [address] Performed By: #### 2 4323-8 ####[facility] LABCLIA [id number] [place] [address] [place] Bilirubin [Mass/Vol] 0.8 mg/dL Normal 0.2-1.3 [facility] Comment on above: Order Comment: Speci men Type: BLOOD SPECIMENOrdering Facility: [facility] Address: [address] [place], [place] [address] Performed By: #### 2 4323-8 ####[facility] LABCLIA [id number] [place] [address] [place] Calcium [Mass/Vol] 10.1 mg/dL Normal 8.5-10.2 [facility] Comment on above: Order Comment: Speci men Type: BLOOD SPECIMENOrdering Facility: [facility] Address: [address] [place], [place] [address] Performed By: #### 2 4323-8 ####[facility] LABCLIA [id number] [place] [address] [place] Chloride [Moles/Vol] 104 mmol/L Normal 97-105 [facility] Comment on above: Order Comment: Speci men Type: BLOOD SPECIMENOrdering Facility: [facility] Address: [address] [place] [address] Performed By: #### 2 4323-8 ####[facility] LABCLIA [id number] [place] [address] [place] CO2 [Moles/Vol] 25 mmol/L Normal 22-30 [facility] Comment on above: Order Comment: Speci men Type: BLOOD SPECIMENOrdering Facility: [facility] Address: [address] [place] [address] Performed By: #### 2 4323-8 ####[facility] LABCLIA [id number] [place] [address] [place] Creatinine [Mass/Vol] 1.29 mg/dL High 0.73-1.22 [facility] Comment on above: Order Comment: Speci men Type: BLOOD SPECIMENOrdering Facility: [facility] Address: [address] [place] [address] Performed By: #### 2 4323-8 ####[facility] LABIA [id number] [place] [address] [place] Creatinine and Glomerular filtration rate.predicted panel (S/P/Bld) 62 mL/min/1.73m??? Normal >=60 [facility] Comment on above: Order Comment: Speci men Type: BLOOD SPECIMENOrdering Facility: [facility] Address: [address] [address] Result Comment: Jamila mated Glomerular Filtration Rate [...] actual GFR. Performed By: #### 2 4323-8 ####[facility] LABIA [id number] [place] [address] [place] Glucose [Mass/Vol] 105 mg/dL High 74-99 [facility] Comment on above: Order Comment: Speci men Type: BLOOD SPECIMENOrdering Facility: [facility] Address: [address] [place] [address] Result Comment: The [place] Diabetes Association (ADA) provides guidance for cutoff [...] Standards of Medical Care in Diabetes 2016, [place] Diabetes Association. Diabetes Care. 2016.39(Suppl 1). Performed By: #### 2 4323-8 ####[facility] LABIA [id number] [place] [address] [place] Potassium [Moles/Vol] 4.8 mmol/L Normal 3.7-5.1 [facility] Comment on above: Order Comment: Homeri men Type: BLOOD SPECIMENOrdering Facility: [facility] Address: [address] [place] [address] Performed By: #### 2 4323-8 ####[facility] LABIA [id number] [place] [address] [place] Protein [Mass/Vol] 7.2 g/dL Normal 6.3-8.0 [facility] Comment on above: Order Comment: Homeri men Type: BLOOD SPECIMENOrdering Facility: [facility] Address: [address] [id number] Performed By: #### 2 4323-8 ####[facility] LABCLIA [id number] [place] [id number] [place] Sodium [Moles/Vol] 141 mmol/L Normal 136-144 [facility] Comment on above: Order Comment: Speci men Type: BLOOD SPECIMENOrdering Facility: [facility] Address: [address] [place] [address] Performed By: #### 2 4323-8 ####[facility] LABCLIA [id number] [place] [address] [place] Urea nitrogen [Mass/Vol] 25 mg/dL High 9-24 [facility] Comment on above: Order Comment: Speci men Type: BLOOD SPECIMENOrdering Facility: [facility] Address: [address] [place] [address] Performed By: #### 2 4323-8 ####[facility] LABCLIA [id number] [place] [id number] [place] ECG COMPLETEon 11-03-2023 ECG COMPLETE Ventricular Rate : 9 7 BPM QRS Duration : 80 ms Q-T Interval : 364 ms QTC Calculation(Bazett) : 462 ms Calculated R [place] : -36 degrees Calculated T [place] : 5 degrees ATRIAL FIBRILLATION LEFT AXIS DEVIATION LOW VOLTAGE ANTEROSEPTAL MYOCARDIAL INFARCTION , AGE UNDETERMINED ABNORMAL ECG Confirmed by MD NIVIA, PhD, AGGIE ([id number]) on 11/18/2023 5:00:43 PM NAME : SUKHDEEP GAMINO PID : [id number] : 1960 Gender : Male Race : Unknown ORD : [id number] Procedure Date : Nov 03 2023 15:54:05 Edit Date : Nov 18 2023 17:00:49 Diagnosis: ATRIAL FIBRILLATION LEFT AXIS DEVIATION LOW VOLTAGE ANTEROSEPTAL MYOCARDIAL INFARCTION , AGE UNDETERMINED ABNORMAL ECG Confirmed by MD NIVIA, PhD, AGGIE ([id number]) on 11/18/2023 5:00:43 PM Test Reason : Location : [facility] : [facility] Overread By : MD NIVIA, PhD,AGGIE Edited By : MD NIVIA, PhD,AGGIE Referred By : ROXANA BAH Acquired by : NIELS MARQUEZ [facility] ECHOon 11-03-2023 Echocardiography Echocardiography Rep ort: Transthoracic Echo [facility] J35 Date of service: 11/03/2023 3:14:37 PM 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 Author Type: Physician Help Desk Supervisor Type: H&P Filed: 11/04/2023 12:33 Note Text: [...] any new or worsening cardiac symptoms. Follows [facility] in [place] last OV 01/2023. Reports compliance to medication. Denies any history of stents, CABG, reports [facility] x3, most recent ~2018. Recent cardiac testing . -[facility] Cardiac Perfusion Test 11/03/2023: negative for ischemia [...] Pravastatin Paroxysmal atrial fibrillation (HCC) Assessment: Follows [facility] Dr. Lozano , last OV 01/2023. Reports [...] have a large neck STOP-Bang Score: 3 [id number] Score: Age: <65 Sex: male CHF history: Yes Hypertension history: Yes Stroke/TIA/thromboembolism history: No Vascular disease history: Yes Diabetes history: No [id number] Score: 3 ARISCAT Score: Age: 51-80 Preoperative [...] LAPAROSCOPIC RE (more content not included)... Normal [facility] CARDIAC PERF STRESS/PHARM on 11-03-2023 [place] CARDIAC PERF STRESS/PHARM * * *Final Report* * * DATE OF EXAM: Nov 03 2023 11:05AM [facility] 0006 - [place] CARDIAC PERF STRESS/PHARM / PROCEDURE REASON: Malignant neoplasm of prostate (HCC) * * * * Physician Interpretation * * * * Stress Carbider Report: [facility] ANALILIA-2 Date of service: 11/03/2023 9:29:00 [...] later. See administered radiotracer and doses below. [facility] Date of service: 11/03/2023 9:29:00 AM [...] * * * [facility] Report: [facility] Date of service: 11/03/2023 9:29:00 AM [facility] interpreting physician: Prasanna Lin MD PATIENT: Name: SUKHDEEP GAMINO Age: 62 years Gender: M 1. Incidental Findings from limited non-diagnostic CTAC: - Coronary calcifications visualized. * * * Final * * * Stress ECG Report: [place] [address] Date of service: 11/03/2023 9:29:00 AM Ordering physician: ROXANA BAH machine specialist: Angela Duarte MS, CEP Help Desk Supervisor: Maisha Sesay Fellow: Jorge L Mckeon MD and lEdon Booth MD Interpreting physician: Prasanna Lin MD [...] 150/84 mmHg. The double product achieved was [address]. Medications: Last Used COREG 3 Hours CARDIZ (more content not included)... Normal [facility] [place] Heart Perfusion W stress and W radionuclide Yogi 11-03-[address] [facility] PT panel Coag (PPP)on 2023 INR Coag (PPP) [Relative time] 1.3 {INR} Normal 0.9-1.3 [facility] Comment on above: Order Comment: Speci men Type: BLOOD SPECIMENOrdering Facility: [facility] Address: [address] [place] [address] Result Comment: Tiffani min K Antagonist (VKA) Therapeutic Range: INR 2 to 3 (Target INR of 2.5) Note: For patients treated with VKA drugs, such as warfarin, the [place] [employer] 2012 Guideline recommends [...] Chest 2012, 141:7S-47S Ezekiel RA, et al. [facility] 2017, 70: 252-289 Performed By: #### 1 4979-9, 56716-7 ####[facility] LABCLIA [id number] [place] [address] [place] PT Coag (PPP) [Time] 13.2 s High 9.7-13.0 [facility] Comment on above: Order Comment: Speci men Type: BLOOD SPECIMENOrdering Facility: [facility] Address: [address] [place] [address] Performed By: #### 1 4979-9, 76679-7 ####[facility] LABCLIA [id number] [place] [address] [place] TYPE AND SCREEN,30 DAYon ABO A Normal [facility] Comment on above: Order Comment: Speci men Type: BLOOD SPECIMENOrdering Facility: [facility] Address: [address] [place] [address] Performed By: #### T SCR30 ####CC [facility] BLOOD BANKCLIA [id number] [address] [place] HISTORICAL AB SCR STATUS Negative Normal [facility] Comment on above: Order Comment: Speci men Type: BLOOD SPECIMENOrdering Facility: [facility] Address: [address] [place] [address] Performed By: #### T SCR30 ####CC MAIN BLOOD BANKIA [id number] [place] [address] [place] Rh Nom (Bld) Positive Normal [facility] Comment on above: Order Comment: Speci men Type: BLOOD SPECIMENOrdering Facility: [facility] Address: [address] [place] [address] Performed By: #### T SCR30 ####CC MAIN BLOOD BANKIA [id number] [place] [address] [place] URINALYSIS, REFLEX MICROSCOP ICon 11-03-2023 Bacteria LM.HPF (Urine sed) [#/Area] Negative Negative /HPF [facility] Bilirubin Ql (U) Negative Negative [facility] Clarity (Unsp spec) Clear Clear [facility] Color (U) Yellow Yellow [facility] Epithelial cells LM.HPF (Urine sed) [#/Area] None Seen [facility] Glucose Test strip (U) [Mass/Vol] Negative Negative [facility] Hemoglobin Ql (U) Negative Negative [facility] Hyaline casts (Urine sed) [#/Area] 1-3 /LPF Abnormal 0 /LPF [facility] Ketones Ql (U) Negative Negative [facility] Leukocyte esterase Test strip Ql (U) Trace Abnormal Negative [facility] Hospital Nitrite Ql (U) Negative Negative [facility] pH (U) 5.5 [pH] <8.[address] [facility] Protein (U) [Mass/Vol] Negative Negative [facility] RBC LM.HPF (Urine sed) [#/Area] 0-2 /HPF 0-2 /HPF [facility] Specific gravity (U) [Rel density] 1.023 1.005 - 1.[address] [facility] Urobilinogen Ql (U) 0.2 EU/dL 0.2-1.0 EU/dL [facility] WBC LM.HPF (Urine sed) [#/Area] 0-5 /HPF 0-5 /HPF [facility] Bacteria LM.HPF (Urine sed) [#/Area] Negative Normal Negative [facility] Comment on above: Order Comment: Speci men Type: URINE SPECIMENOrdering Facility: [facility] Address: [address] [place] [address] Performed By: #### L [id number] ####[facility] LABCLIA [id number] [place] [address] [place] Bilirubin Ql (U) Negative Normal Negative [facility] Comment on above: Order Comment: Speci men Type: URINE SPECIMENOrdering Facility: [facility] Address: [address] [place] [address] Performed By: #### L [id number] ####[facility] LABCLIA [id number] [place] [address] [place] Clarity (Unsp spec) Clear Normal Clear [facility] Comment on above: Order Comment: Speci men Type: URINE SPECIMENOrdering Facility: [facility] Address: [address] [place] [address] Performed By: #### L [id number] ####[facility] LABCLIA [id number] [place] [address] [place] Color (U) Yellow Normal Yellow [facility] Comment on above: Order Comment: Speci men Type: URINE SPECIMENOrdering Facility: [facility] Address: [address] [address] Performed By: #### L [id number] ####[facility] LABIA [id number] [place] [address] [place] Epithelial cells LM.HPF (Urine sed) [#/Area] None Seen Normal [facility] Comment on above: Order Comment: Speci men Type: URINE SPECIMENOrdering Facility: [facility] Address: [address] [address] Performed By: #### L [id number] ####[facility] LABCLIA [id number] [place] [address] [place] Glucose Test strip (U) [Mass/Vol] Negative Normal Negative [facility] Comment on above: Order Comment: Speci men Type: URINE SPECIMENOrdering Facility: [facility] Address: [address] [address] Performed By: #### L [id number] ####[facility] LABCLIA [id number] [place] [address] [place] Hemoglobin Ql (U) Negative Normal Negative [facility] Comment on above: Order Comment: Speci men Type: URINE SPECIMENOrdering Facility: [facility] Address: [address] [place] [address] Performed By: #### L [id number] ####[facility] LABCLIA [id number] [place] [address] [place] Hyaline casts (Urine sed) [#/Area] 1-3 /LPF Abnormal 0 /LPF [facility] Comment on above: Order Comment: Speci men Type: URINE SPECIMENOrdering Facility: [facility] Address: [address] [place] [address] Performed By: #### L [id number] ####[facility] LABCLIA [id number] [place] [address] [place] Ketones Ql (U) Negative Normal Negative [facility] Comment on above: Order Comment: Speci men Type: URINE SPECIMENOrdering Facility: [facility] Address: [address] [address] Performed By: #### L [id number] ####[facility] LABCLIA [id number] [place] [address] [place] Leukocyte esterase Test strip Ql (U) Trace Abnormal Negative [facility] Comment on above: Order Comment: Speci men Type: URINE SPECIMENOrdering Facility: [facility] Address: [address] [address] Performed By: #### L [id number] ####[facility] LABCLIA [id number] [place] [address] [place] Nitrite Ql (U) Negative Normal Negative [facility] Comment on above: Order Comment: Speci men Type: URINE SPECIMENOrdering Facility: [facility] Address: [address] [address] Performed By: #### L [id number] ####[facility] LABCLIA [id number] [place] [address] [place] pH (U) 5.5 [pH] Normal <8.5 [facility] Comment on above: Order Comment: Speci men Type: URINE SPECIMENOrdering Facility: [facility] Address: [address] [address] Performed By: #### L [id number] ####[facility] LABIA [id number] [place] [address] [place] Protein (U) [Mass/Vol] Negative Normal Negative [facility] Comment on above: Order Comment: Speci men Type: URINE SPECIMENOrdering Facility: [facility] Address: [address] [place] [address] Performed By: #### L [id number] ####[facility] LABIA [id number] [place] [address] [place] RBC LM.HPF (Urine sed) [#/Area] 0-2 /HPF Normal 0-2 /HPF [facility] Comment on above: Order Comment: Speci men Type: URINE SPECIMENOrdering Facility: [facility] Address: [address] [address] Performed By: #### L [id number] ####[facility] LABCLIA [id number] [place] [address] [place] Specific gravity (U) [Rel density] 1.023 Normal 1.005-1.030 [facility] Comment on above: Order Comment: Speci men Type: URINE SPECIMENOrdering Facility: [facility] Address: [address] [address] Performed By: #### L [id number] ####[facility] LABCLIA [id number] [place] [address] [place] Urobilinogen Ql (U) 0.2 EU/dL Normal 0.2-1.0 EU/dL [facility] Comment on above: Order Comment: Speci men Type: URINE SPECIMENOrdering Facility: [facility] Address: [address] [address] Performed By: #### L [id number] ####[facility] [id number] [place] [address] [place] WBC LM.HPF (Urine sed) [#/Area] 0-5 /HPF Normal 0-5 /HPF [facility] Comment on above: Order Comment: Speci men Type: URINE SPECIMENOrdering Facility: [facility] Address: [address] [place] [address] Performed By: #### L [id number] ####[facility] [id number] [place] [address] [place] aPTT PPPon 11-03-2023 aPTT Coag (PPP) [Time] 27.4 s Normal 23.0-32.4 [facility] Comment on above: Order Comment: Speci men Type: BLOOD SPECIMENOrdering Facility: [facility] Address: [address] [place] [address] Performed By: #### 1 4979-9, 42389-9 ####[facility] [id number] [place] [address] [place] CNOVon 10-02-2023 CNOV Office Visit (UROLMN ) SUKHDEEP GAMINO ([id number]) 1960 M Date Time Provider Department 10/02/23 [...] PSA 7.8. Underwent prostate biopsy that demonstrated Sells 4+5=9, GG5, 90% highest involvement. Bone scan [...] very high risk prostate cancer (PSA 7.8, Sells 4+6=9, 90% high involvement) with negative bone [...] CA Plan : above Roxana Bah MD Fox Farmer: Orders ID: [id number] 11/03/2023 12:00 AM Author: JEROME, PROVIDER Signed by [facility] PROVIDER on 11/03/2023 at 12:00 AM Document text: Referring Provider: CESIA WEEKS [[id number]] Allergies As of Date: 10/02/2023 (Not on [...] 1 caps (more content not included)... Normal [facility] URINALYSIS, REFLEX MICROSCOP ICon 10-02-2023 Bilirubin Ql (U) Negative Negative [facility] Clarity (Unsp spec) Clear Clear [facility] Color (U) Light Yellow Yellow [facility] Glucose Test strip (U) [Mass/Vol] Negative Trace, Negative [facility] Hemoglobin Ql (U) Negative Negative, Trace [facility] Ketones Ql (U) Negative Negative, Trace [facility] Leukocyte esterase Test strip Ql (U) Negative Negative, 25 Brandon/uL [facility] Nitrite Ql (U) Negative Negative [facility] pH (U) 5.0 [pH] 5.0 - 8.[address] [facility] Protein (U) [Mass/Vol] Negative Trace, Negative [facility] Specific gravity (U) [Rel density] 1.027 1.005 - 1.[address] [facility] Urobilinogen Ql (U) Normal Normal [facility] Bilirubin Ql (U) Negative Normal Negative [facility] Comment on above: Order Comment: Speci men Type: URINE SPECIMENOrdering Facility: [facility] Address: [address] [place] [address] Performed By: #### L [id number] ####[facility] LABCLIA [id number] [place] [address] [place] Clarity (Unsp spec) Clear Normal Clear [facility] Comment on above: Order Comment: Speci men Type: URINE SPECIMENOrdering Facility: [facility] Address: [address] [place] [address] Performed By: #### L [id number] ####[facility] LABCLIA [id number] [place] [address] [place] Color (U) Light Yellow Normal Yellow [facility] Comment on above: Order Comment: Speci men Type: URINE SPECIMENOrdering Facility: [facility] Address: [address] [place] [address] Performed By: #### L [id number] ####[facility] LABCLIA [id number] [place] [address] [place] Glucose Test strip (U) [Mass/Vol] Negative Normal Trace, Negative [facility] Comment on above: Order Comment: Speci men Type: URINE SPECIMENOrdering Facility: [facility] Address: [address] [place] [address] Performed By: #### L [id number] ####[facility] LABCLIA [id number] [place] [address] [place] Hemoglobin Ql (U) Negative Normal Negative, Trace [facility] Comment on above: Order Comment: Speci men Type: URINE SPECIMENOrdering Facility: [facility] Address: [address] [place] [id number] Performed By: #### L [id number] ####[facility] LABCLIA [id number] [place] [address] [place] Ketones Ql (U) Negative Normal Negative, Trace [facility] Comment on above: Order Comment: Speci men Type: URINE SPECIMENOrdering Facility: [facility] Address: [address] [place] [address] Performed By: #### L [id number] ####[facility] LABCLIA [id number] [place] [address] [place] Leukocyte esterase Test strip Ql (U) Negative Normal Negative, 25 Brandon/uL [facility] Comment on above: Order Comment: Speci men Type: URINE SPECIMENOrdering Facility: [facility] Address: [address] [address] Performed By: #### L [id number] ####[facility] LABCLIA [id number] [place] [address] [place] Nitrite Ql (U) Negative Normal Negative [facility] Comment on above: Order Comment: Speci men Type: URINE SPECIMENOrdering Facility: [facility] Address: [address] [address] Performed By: #### L [id number] ####[facility] LABIA [id number] [place] [address] [place] pH (U) 5.0 [pH] Normal 5.0-8.0 [facility] Comment on above: Order Comment: Speci men Type: URINE SPECIMENOrdering Facility: [facility] Address: [address] [address] Performed By: #### L [id number] ####[facility] LABIA [id number] [place] [address] [place] Protein (U) [Mass/Vol] Negative Normal Trace, Negative [facility] Comment on above: Order Comment: Speci men Type: URINE SPECIMENOrdering Facility: [facility] Address: [address] [place] [address] Performed By: #### L [id number] ####[facility] LABIA [id number] [place] [address] [place] Specific gravity (U) [Rel density] 1.027 Normal 1.005-1.030 [facility] Comment on above: Order Comment: Speci men Type: URINE SPECIMENOrdering Facility: [facility] Address: [address] [place] [address] Performed By: #### L [id number] ####[facility] LABCLIA [id number] [place] [address] [place] Urobilinogen Ql (U) Normal Normal Normal [facility] Comment on above: Order Comment: Speci men Type: URINE SPECIMENOrdering Facility: [facility] Address: [address] [place] [address] Performed By: #### L [id number] ####[facility] LABCLIA [id number] [place] [address] [place] RAD - Nuclear Medicine Repor ton 09-15-2023 RAD - Nuclear Medicine Report [id number] Normal [facility] PET psma initial tx sb-mton 09-14-2023 PET psma initial tx sb-mt [facility] [place] [address] Nuclear Medicine Report Signed Patient: Sukhdeep Gaimno MR#: [id number] 5 : 1960 Acct:[id number] Age/Sex: 62 / M ADM Date: 09/14/23 Loc: Room: Type: [facility] Attending Dr: Cesia Weeks MD Copies to: [...] Urrutia Jr., Yamilka09/14/2023 3:06 PM Dictation Location: [place] [address] Transcribed By: KIERSTEN 09/14/23 1506 Dictated By: Shahriar Urrutia Jr, DO 09/14/23 1456 Signed By: 09/14/23 1506 [facility] RAD - Nuclear Medicine Repor ton 09-03-2023 RAD - Nuclear Medicine Report [id number]#1.00TIFF [facility] Telephone (NCCAP) SUKHDEEP GAMINO ([id number]) 1960 Date Time Provider Department 09/02/23 CESIA WEEKS During your visit today, we recorded the following information about you: María Simon 09/02/2023 8:33 AM Signed This form is used for MAIN CAMPUS APPOINTMENTS ONLY. Is this request for a [place] PET scan appointment? Yes: Risk Control Product Liability Director: María Retana Requesting Person Dr Weeks: Area Code + Phone/Pager: [phone] Who do we call to schedule this appointment? Other Contact: [facility] please route to Regine Marcus in [place] for scheduleing pt is approved through [facility] Requesting Staff Dr weeks Area Code + Phone/Pager: [phone] PET Orders (A delay in scheduling will result if the orders are not present at time of review): External. Has the External Clinical Order been scanned into [facility]? Yes ADDITIONAL ACTION MAY BE REQUIRED IF [...] 09/04/2023 10:01 AM Addendum PT is OON [employer] Self pay DO NOT SCHEDULE TILL APPROVED, [facility] referral [phone], Questions contact [email or web address] PreAccess obtained approval OK to schedule Authorization number: PSMA Authorization date range: PSMA Primary Insurance: [employer] Self pay OON Diagnosis: Prostate Cancer C61 [...] No - Schedule as requested Comments for Forensic Investigator: Joseph ROUTE TO SCHEDULERS POOL P PET COLOR MAKER FORMULATOR MC or P NM SPECIAL STUDIES [facility] Allergies As of Date: 09/02/2023 (Not on File) Date Reviewed: Never Reviewed Reason for Visit: Nm Pet Request [[id number]] Problem List As Of Date: 09/02/2023 (None) Encounter Status:Closed by MARÍA SIMON on 09/09/23 Normal [facility] Physician Orderon 09-01-2023 Physician Order [id number]#1.00TIFF Normal [facility] Ambulatory Visit Summaryon 0 08-31-2023 [...] Where: [facility] [address] [place] [phone] Medications What How Much When Why Instructions [...] fo (more content not included)... Normal [facility] Patient Educationon 08-31-19 24 Patient Education Oncology [...] likelihood that the cancer will spread. ? Sells 6 or lower: This indicates that the [...] be (more content not included)... Normal [facility] Urology Office/Clinic Noteon 08-31-2023 Urology Office/Clinic Note [...] cons of each therapy today, and the [employer] prostate cancer book was provided. Explained that [...] [facility] [address] , [place] [address]- [phone] Additional Instructions: f/u pending results of PSMA [...] mRNA BNT-162b2 vax (more content not included)... [facility] Comment on above: Result Comment: Elec tronically Signed By: Cesia WEEKS MD\.br\Date and Time Signed: 08/31/23 10:34 EST\.br\Electronically Co-Signed By: Radha Balderas\.br\Date and Time Co-Signed: 08/31/23 10:25 EST [facility] 08-28-2023 Lab Reports [id number]#1.00TIFF [facility] Consent for Procedure/Surger yon 08-26-2023 Consent for Procedure/Surgery [id number]#1.00TIFF [facility] Ambulatory Visit Summaryon 0 08-25-2023 Ambulatory [...] GARRISON, Cesia Hernández Where: [facility] Roel 08-25-2023 L Specimen: [id number] Re ceived: 08/26/23 Status: ROSA Wooadrd Num: [id number] Spec Type: Surgical Subm Dr: Cesia Weeks [...] Account Attending Physician Sukhdeep Gamino 62/M [place] [id number] Cesia Weeks MD SPEC NUM: [id number] RECD: 08/26/23 STATUS: ROSA WOODARD NUM: [id number] BRIDGETTE: 08/25/23-[address]: Cesia Weeks MD ENTERED: 08/26/[address] [facility] [address]: SPEC TYPE: Surgical DEPT: [facility] BY: [id number] ORDERED: HE/24, Gross/Micro L4/12 ORDERED: HE/24, Gross/Micro L4/12, USS/24 Pathological Diagnosis A. Prostate, left base, needle core biopsies: - Invasive prostate adenocarcinoma, Sells pattern 3+5, grade group 4. - Adenocarcinoma [...] group 5 Specimen: [id number] Received: 08/26/23 Status: [facility] Num: [id number] Spec Type: Surgical Subm Dr: Cesia Weeks [...] Procedures: HE/, Gross/Micro L4/12 Patient: Sukhdeep Gamino [id number] (Continued) Specimen: [id number] Received: 08/26/23 (Continued) Pathological Diagnosis (Continued) Signed (signature on file) Nani Ambrocio MD 08/27/23 0959 Specimen: [id number] Received: 08/26/23 Status: ROSA Woodard Num: [id number] Spec Type: Surgical Subm Dr: Cesia Weeks [...] Procedures: HE/24, Gross/Micro L4/12 Patient: Sukhdeep Gamino [id number] (Continued) Specimen: [id number] Received: 08/26/23 (Continued) Pathological Diagnosis (Continued) - Adenocarcinoma involves 50% of the biopsy tissue. - Negative for lymphovascular and perineural invasion. D. Prostate, left lateral mid, needle core biopsy: - Invasive prostate adenocarcinoma, Sells pattern 4+5, minor 3, grade group 5 - Adenocarcinoma involves 60% of the biopsy tissue. - Negative for lymphovascular and perineural invasion E. Prostate, left apex, needle core biopsy: - Invasive prostate adenocarcinoma, Sells pattern 4+3, grade group 3 - Adenocarcinoma involves 60% of the biopsy tissue. - Negative for lymphovascular and perineural invasion F. Prostate, left lateral apex, needle core biopsy: - Invasive prostate adenocarcinoma Christine pattern 4+4, Minor 5, grade group 4 - Adenocarcinoma involves 40% of the biopsy tissue. - Negative for lymphovascular and perineural invasion. G. Prostate, (more content not included)... [facility] Patient Educationon 08-25-19 Patient Education Oncology Transrectal [...] near your rectum, especially while sitting. ? [place]-colored urine due to small amounts of blood in your urine. ? A burning feeling while urinating. ? Blood in your stool (feces) or bleeding from your rectum. ? Blood in your semen. Follow these instructions at home: Medicines ? Take gwle-sox-nwdojou and prescription medicines only as told by [...] provider. Document Revised: 01/13/2022 Document Reviewed: 01/13/2022 [facility] Patient Education ? 2022 [facility] Hieu. Mayela [facility] Urology Office/Clinic Noteon 08-25-2023 Urology [...] without complications. Pathology to be sent to [facility]. -F/u scheduled 09/11/23 to review path report [...] [facility] [address] , [place] [phone] Additional Instructions: review path on 09/11/23 Patient [...] inhalation powd (more content not included)... Normal [facility] Comment on above: Result Comment: Elec tronically Signed By: Cesia WEEKS MD\.br\Date and Time Signed: 08/25/23 15:49 EST\.br\Electronically Co-Signed By: Radha Balderas\.br\Date and Time Co-Signed: 08/25/23 15:48 EST [facility] 08-20-2023 Lab Reports [id number]#1.00TIFF [facility] Patient Correspondenceon Patient Correspondence [id number]#1.00TIFF Normal [facility] Physician Referralon 024 Physician Referral [id number]#1.00TIFF [facility] Screenson 08-11-2023 Screens [id number]#1.00TIFF [facility] Ambulatory Visit Summaryon 0 08-10-2023 Ambulatory Visit Summary SUKHDEEP GAMINO :1960 Visit Date:08/10/2023 Ambulatory Visit Instructions Your Diagnosis Elevated PSA BPH with urinary obstruction A-fib Inguinal hernia Tests Performed Urnls Dip Stick Auto w/o Microscopy POC 55024 Your Care Team Attending Physician - MICKY [...] TRUS/bx Where: [facility] [address], [place] [phone] Medications What How Much When Instructions Unchanged [...] Urnls Dip Stick Auto w/o Microscopy POC 82445 (08/10/2023) Bilirubin Urine Dipstick - Negative Blood Urine Dipstick - Negative Glucose Urine Dipstick - Negative Ketones Urine Dipstick - Negative Leukocytes Urine Dipstick - Negative Nitrite Urine Dipstick - Negative Protein Urine Dipstick - Negative Specific Jerome Urine Dipstick - 1.025 Urine Appearance Urine [...] near your rectum, especially while sitting. ? [place]-colored urine due to small amounts of blood in your urine. ? A burning feeling while urinating. ? Blood in your stool (feces) or bleeding from your rectum. ? Blood in your semen. Follow these instructions at home: Medicines ? Take pbly-lbm-noasjkl and prescription medicines only as told by [...] uri (more content not included)... Normal [facility] Patient Educationon 08-10-19 Patient Education Oncology Transrectal [...] near your rectum, especially while sitting. ? [place]-colored urine due to small amounts of blood in your urine. ? A burning feeling while urinating. ? Blood in your stool (feces) or bleeding from your rectum. ? Blood in your semen. Follow these instructions at home: Medicines ? Take tdrz-zoa-pmorkai and prescription medicines only as told by [...] provider. Document Revised: 01/13/2022 Document Reviewed: 01/13/2022 [employer] Patient Education ? 2022 [facility] [employer] Transrectal Ultrasound-Guided Prostate Biopsy A transrectal [...] including vitamins, herbs, eye drops, creams, and bfmw-mwy-gmhdixf medicines. ? Any problems you or family [...] as aspirin (more content not included)... Normal [facility] Lab Reportson 07-30-2023 Lab Reports [id number]#1.00TIFF Normal [facility] Lab Reportson 07-29-2023 Lab Reports [id number]#1.00TIFF Normal [facility] [facility] Office Visiton 01-02-2023 Follow-up visit [id number] Sukhdeep Gamino 1960 M Date Provider Department Center 01/02/2023 [facility] No family history on file Level of Service:02514 PA OFFICE/OUTPATIENT ESTABLISHED LOW [facility] 20-29 MIN Reason for Visit and Comments: Atrial Fibrillation [80] Coronary Artery Disease [187] Hypertension [666828] Congestive Heart Failure [127] Normal [facility] XR LSPINE MIN 4 VIEWSon 05-04 [...] RICARDO Date: 2022-05-26 19:58 Normal [facility] Basic metabolic 2000 panelon 06-27-2021 Anion gap [Moles/Vol] 8 mmol/L Normal 6-18 [facility] Comment on above: Performed By: #### 2 4321-2 #### [facility] [address] [place] [address] Calcium [Mass/Vol] 8.7 mg/dL Low 8.9-10.3 [facility] Comment on above: Performed By: #### 2 4321-2 #### [facility] [address] [place] [address] Chloride [Moles/Vol] 106 mmol/L Normal 98-107 [facility] Comment on above: Performed By: #### 2 4321-2 #### [facility] [address] [place] [address] CO2 [Moles/Vol] 26 mmol/L Normal 22-32 [facility] Comment on above: Performed By: #### 2 4321-2 #### [facility] [address] [place] [address] Creatinine [Mass/Vol] 1.05 mg/dL Normal 0.60-1.30 [facility] Comment on above: Performed By: #### 2 4321-2 #### [facility] [address] [place] [address] GFR/1.73 sq M.predicted among non-blacks MDRD (S/P/Bld) [Vol rate/Area] 76 mL/min/{1.73_m2} Normal [facility] Comment on above: Performed By: #### 2 4321-2 #### [facility] [address] [place] [address] Glucose [Mass/Vol] 126 mg/dL High 70-99 [facility] Comment on above: Performed By: #### 2 4321-2 #### [facility] [address] [place] [address] Potassium [Moles/Vol] 4.3 mmol/L Normal 3.6-5.1 [facility] Comment on above: Performed By: #### 2 4321-2 #### [facility] [address] [place] [address] Sodium [Moles/Vol] 140 mmol/L Normal 136-145 [facility] Comment on above: Performed By: #### 2 4321-2 #### [facility] [address] [place] [address] Urea nitrogen [Mass/Vol] 16 mg/dL Normal 8-20 [facility] Comment on above: Performed By: #### 2 4321-2 #### [facility] [address] [place] [address], [place] [address] Urea nitrogen/Creatinine [Mass ratio] 15.2 mg/mg Normal 12.0-20.0 [facility] Comment on above: Performed By: #### 2 4321-2 #### [facility] [address] [place] [address], [place] [address] Hemogram and platelets WO di fferential panel (Bld)on 06-27-2021 Basophils (Bld) [#/Vol] 0.00 10*3/uL Normal 0.00-0.20 [facility] Comment on above: Performed By: #### 2 4317-0 #### [facility] [address] [place] [address] Basophils/100 WBC (Bld) 0.1 % Normal 0.0-2.0 [facility] Comment on above: Performed By: #### 2 4317-0 #### [facility] [address] [place] [address], [place] [address] Eosinophils (Bld) [#/Vol] 0.00 10*3/uL Normal 0.00-0.70 [facility] Comment on above: Performed By: #### 2 4317-0 #### [facility] [address] [place] [address] Eosinophils/100 WBC (Bld) 0.0 % Normal 0.0-7.0 [facility] Comment on above: Performed By: #### 2 4317-0 #### [facility] [address] [place] [address] Erythrocyte distribution width (RBC) [Ratio] 13.2 % Normal 11.0-14.8 [facility] Comment on above: Performed By: #### 2 4317-0 #### [facility] [address] [place] [address] Hematocrit (Bld) [Volume fraction] 36.3 % Low 39.0-49.0 [facility] Comment on above: Performed By: #### 2 4317-0 #### [facility] [address] [place] [address] Hemoglobin (Bld) [Mass/Vol] 12.2 g/dL Low 13.5-17.5 [facility] Comment on above: Performed By: #### 2 4317-0 #### [facility] [address] [place] [address] Lymphocytes (Bld) [#/Vol] 0.70 10*3/uL Low 1.00-4.80 [facility] Comment on above: Performed By: #### 2 4317-0 #### [facility] [address] [place] [address] 14642 Lymphocytes/100 WBC (Bld) 7.3 % Low 22.0-44.0 [facility] Comment on above: Performed By: #### 2 4317-0 #### [facility] [address] [place] [address]774 MCH 30.0 pcg Normal 27.0-34.0 [facility] Comment on above: Performed By: #### 2 4317-0 #### [facility] [address] [place] [address] 81454 MCHC (RBC) [Mass/Vol] 33.5 g/dL Normal 32.0-36.0 [facility] Comment on above: Performed By: #### 2 4317-0 #### [facility] [address] [place] [address]236 MCV (RBC) [Entitic vol] 89.5 fL Normal 80.0-97.0 [facility] Comment on above: Performed By: #### 2 4317-0 #### [facility] [address] [place] [address] Monocytes (Bld) [#/Vol] 1.00 10*3/uL High 0.00-0.90 [facility] Comment on above: Performed By: #### 2 4317-0 #### [facility] [address] [place] [address] 14685 Monocytes/100 WBC (Bld) 11.6 % Normal 0.0-12.0 [facility] Comment on above: Performed By: #### 2 4317-0 #### [facility] [address] [place] [address] 11795 Neutrophils Absolute 7.30 K/mcL Normal 1.80-7.70 [facility] Comment on above: Performed By: #### 2 4317-0 #### [facility] [address] [place] [address] 73925 Neutrophils/100 WBC (Bld) 81.0 % High 40.0-70.0 [facility] Comment on above: Performed By: #### 2 4317-0 #### [facility] [address] [place] [address] 06364 Platelet mean volume (Bld) [Entitic vol] 7.0 fL Normal 6.2-12.1 [facility] Comment on above: Performed By: #### 2 4317-0 #### [facility] [address] [place] [address] 98651 Platelets (Bld) [#/Vol] 195 10*3/uL Normal 142-424 [facility] Comment on above: Performed By: #### 2 4317-0 #### [facility] [address] [place] [address] 66231 RBC (Bld) [#/Vol] 4.06 10*6/uL Low 4.30-5.70 [facility] Comment on above: Performed By: #### 2 4317-0 #### [facility] [address] [place] [address] 37556 WBC (Bld) [#/Vol] 9.0 10*3/uL Normal 4.6-10.2 [facility] Comment on above: Performed By: #### 2 4317-0 #### [facility] [address] [place] [address] 25524 PT Coag (PPP) [Time]on 06-27 INR Coag (PPP) [Relative time] 1.2 {INR} Normal <=5.0 [facility] Comment on above: Result Comment: The recommended therapeutic INR range for most cardiac indications is 2.0-3.0 For high intensity therapy (i.e. mechanical heart valves), the recommended range is 2.5-3.5 Performed By: #### 2 4321-2 #### [facility] [address] [place] [address] 92215 Prothrombin timeon PT Coag (PPP) [Time] 15.0 s High 11.9-14.7 [facility] Comment on above: Performed By: #### 2 4321-2 #### [facility] [address] [place] [address] 223[address] Glucose Auto test strip (Bld ) [Mass/Vol]on 06-26-2021 Glucose [Mass/Vol] 82 mg/dL Normal 70-99 [facility] Comment on above: Performed By: #### 2 340-8 #### [facility] [address] [place] [address] Glucose [Mass/Vol] 146 mg/dL High 70-99 [facility] Comment on above: Performed By: #### 2 340-8 #### [facility] [address] [place] [address] 02833 PT Coag (PPP) [Time]on 06-26 INR Coag (PPP) [Relative time] 1.2 {INR} Normal <=5.0 [facility] Comment on above: Result Comment: The recommended therapeutic INR range for most cardiac indications is 2.0-3.0 For high intensity therapy (i.e. mechanical heart valves), the recommended range is 2.5-3.5 Performed By: #### 5 902-2 #### [facility] [address] [place] [address] 68027 INR Coag (PPP) [Relative time] 1.1 {INR} Normal <=5.0 [facility] Comment on above: Result Comment: The recommended therapeutic INR range for most cardiac indications is 2.0-3.0 For high intensity therapy (i.e. mechanical heart valves), the recommended range is 2.5-3.5 Performed By: #### 5 902-2 #### [facility] [address] [place] [address] 28432 Prothrombin timeon PT Coag (PPP) [Time] 14.7 s Normal 11.9-14.7 [facility] Comment on above: Performed By: #### 5 902-2 #### [facility] [address] [place] [address] 73656 PT Coag (PPP) [Time] 14.1 s Normal 11.9-14.7 [facility] Comment on above: Performed By: #### 5 902-2 #### [facility] [address] [place] [address] XR FLUORO UP TO 1 HOUR (STAT ISTICS)(NO REPORT)on 06-26-2021 XR FLUORO UP TO 1 HOUR (STATISTICS)(NO REPORT) This order has been auto-finalized and does not contain a result. Normal [facility] XR Fluoro Up To 1 Hour (Stat [...] Self Edit Transcribed Date: 06/26/2021 13:48 Normal [facility] Covid-19 PCR (CVDTBH)on 06-04 SARS-CoV-2 (COVID-19) RNA NANCY+probe Ql (Unsp spec) Not detected Normal NOT DETECTED [facility] Comment on above: Result Comment: This test is not yet approved or cleared by the [place] FDA. When there are no FDA-approved or cleared tests available, and other criteria are met, FDA can make tests available under an emergency access mechanism called an Emergency Use Authorization (EUA). The EUA for this test is supported by the [place] of Health and Human Service's (HHS's) declaration [...] consistent with SARS-CoV-2. Performed By: #### C [facility] #### [facility] [address] [address] [address] Grant Carrillo Basic metabolic 2000 panelon 06-03-2021 Anion gap [Moles/Vol] 9 mmol/L Normal 6-18 [facility] Comment on above: Performed By: #### 2 4321-2 #### [facility] [address] [place] [address] Calcium [Mass/Vol] 9.4 mg/dL Normal 8.9-10.3 [facility] Comment on above: Performed By: #### 2 4321-2 #### [facility] [address] [place] [address] Chloride [Moles/Vol] 105 mmol/L Normal 98-107 [facility] Comment on above: Performed By: #### 2 4321-2 #### [facility] [address] [place] [address] CO2 [Moles/Vol] 25 mmol/L Normal 22-32 [facility] Comment on above: Performed By: #### 2 4321-2 #### [facility] [address] [place] [address] Creatinine [Mass/Vol] 1.05 mg/dL Normal 0.60-1.30 [facility] Comment on above: Performed By: #### 2 4321-2 #### [facility] [address] [place] [address] GFR/1.73 sq M.predicted among non-blacks MDRD (S/P/Bld) [Vol rate/Area] 76 mL/min/{1.73_m2} Normal [facility] Comment on above: Performed By: #### 2 4321-2 #### [facility] [address] [place] [address] Glucose [Mass/Vol] 96 mg/dL Normal 70-99 [facility] Comment on above: Performed By: #### 2 4321-2 #### [facility] [address] [place] [address] 01623 Potassium [Moles/Vol] 4.4 mmol/L Normal 3.6-5.1 [facility] Comment on above: Performed By: #### 2 4321-2 #### [facility] [address] [place] [address] 70994 Sodium [Moles/Vol] 139 mmol/L Normal 136-145 [facility] Comment on above: Performed By: #### 2 4321-2 #### [facility] [address] [place] [address] 48914 Urea nitrogen [Mass/Vol] 23 mg/dL High 8-20 [facility] Comment on above: Performed By: #### 2 4321-2 #### [facility] [address] [place] [address] 32705 Urea nitrogen/Creatinine [Mass ratio] 21.9 mg/mg High 12.0-20.0 [facility] Comment on above: Performed By: #### 2 4321-2 #### [facility] [address] [place] [address]804 Hemogram and platelets WO di fferential panel (Bld)on 06-03-2021 Basophils (Bld) [#/Vol] 0.10 10*3/uL Normal 0.00-0.20 [facility] Comment on above: Performed By: #### 2 4317-0 #### [facility] [address] [place] [address] Basophils/100 WBC (Bld) 0.5 % Normal 0.0-2.0 [facility] Comment on above: Performed By: #### 2 4317-0 #### [facility] [address] [place] [address]509 Eosinophils (Bld) [#/Vol] 0.10 10*3/uL Normal 0.00-0.70 [facility] Comment on above: Performed By: #### 2 4317-0 #### [facility] [address] [place] [address] 72032 Eosinophils/100 WBC (Bld) 0.6 % Normal 0.0-7.0 [facility] Comment on above: Performed By: #### 2 4317-0 #### [facility] [address] [place] [address] 34732 Erythrocyte distribution width (RBC) [Ratio] 13.7 % Normal 11.0-14.8 [facility] Comment on above: Performed By: #### 2 4317-0 #### [facility] [address] [place] [address] 24016 Hematocrit (Bld) [Volume fraction] 45.9 % Normal 39.0-49.0 [facility] Comment on above: Performed By: #### 2 4317-0 #### [facility] [address] [place] [address] 87266 Hemoglobin (Bld) [Mass/Vol] 15.1 g/dL Normal 13.5-17.5 [facility] Comment on above: Performed By: #### 2 4317-0 #### [facility] [address] [place] [address] 63608 Lymphocytes (Bld) [#/Vol] 1.20 10*3/uL Normal 1.00-4.80 [facility] Comment on above: Performed By: #### 2 4317-0 #### [facility] [address] [place] [address] Lymphocytes/100 WBC (Bld) 11.3 % Low 22.0-44.0 [facility] Comment on above: Performed By: #### 2 4317-0 #### [facility] [address] [place] [address] 19105 MCH 29.8 pcg Normal 27.0-34.0 [facility] Comment on above: Performed By: #### 2 4317-0 #### [facility] [address] [place] [address] 90869 MCHC (RBC) [Mass/Vol] 33.0 g/dL Normal 32.0-36.0 [facility] Comment on above: Performed By: #### 2 4317-0 #### [facility] [address] [place] [address] 59821 MCV (RBC) [Entitic vol] 90.4 fL Normal 80.0-97.0 [facility] Comment on above: Performed By: #### 2 4317-0 #### [facility] [address] [place] [address] 12904 Monocytes (Bld) [#/Vol] 1.10 10*3/uL High 0.00-0.90 [facility] Comment on above: Performed By: #### 2 4317-0 #### [facility] [address] [place] [address] 05890 Monocytes/100 WBC (Bld) 9.8 % Normal 0.0-12.0 [facility] Comment on above: Performed By: #### 2 4317-0 #### [facility] [address] [place] [place] [address] Neutrophils Absolute 8.50 K/mcL High 1.80-7.70 [facility] Comment on above: Performed By: #### 2 4317-0 #### [facility] [address] [facility] [place] [address] Neutrophils/100 WBC (Bld) 77.8 % High 40.0-70.0 [facility] Comment on above: Performed By: #### 2 4317-0 #### [facility] [address] [place] [address] 37576 Platelet mean volume (Bld) [Entitic vol] 7.1 fL Normal 6.2-12.1 [facility] Comment on above: Performed By: #### 2 4317-0 #### [facility] [address] [place] [address] 76672 Platelets (Bld) [#/Vol] 379 10*3/uL Normal 142-424 [facility] Comment on above: Performed By: #### 2 4317-0 #### [facility] [address] [place] [address] 40314 RBC (Bld) [#/Vol] 5.08 10*6/uL Normal 4.30-5.70 [facility] Comment on above: Performed By: #### 2 4317-0 #### [facility] [address] [place] [address] 54010 WBC (Bld) [#/Vol] 10.9 10*3/uL High 4.6-10.2 [facility] Comment on above: Performed By: #### 2 4317-0 #### [facility] [address] [place] [address] Cardiovascular Lab Reporton 01-29-2021 Cardiovascular Lab Report [facility] Patient Name: [facility] MR #: [id number] Physician: Adriana Huff, Department of M.D. Medicine Service Date: 01/28/2021 Division of Birthdate: 1960 Cardiology Room #: [facility] Cardiovascular Services [place] [address] [address] [place] [id number] Cardiovascular Laboratory Report FINAL IMPRESSIONS: 1. Esjy-br-wynzmtaj single-vessel coronary artery disease. 2. Mildly reduced [...] Huff and/or a nurse practitioner in the [facility] outpatient setting in the next 2 to 3 months. 5. Follow up with Dr. Fatima as scheduled; consider referral to a laborer mine as clinically appropriate. PROCEDURES: Ultrasound-guided access to [...] right internal jugular vein was obtained. A 6-Mauritian 11 cm sheath was inserted without difficulty. [...] to access the left radial artery. A 6-Mauritian glide sheath was inserted without difficulty. Bilateral [...] Huff M.D. Date Trans: 01/29/2021 02:16 A/wai [id number] cc: Alek Fatima M.D. [address], [facility] [address] Normal [facility] Vital Signs Date Time Vital Sign Value Performing Clinician Rayi michel 05-19-2024 10:44-0400 Body temperature 97.5 [degF] MARYANNE Kamara MD Work Phone: [facility] 05-19-2024 10:44-0400 Diastolic blood pressure 92 mm[Hg] MARYANNE Kamara MD Work Phone: [facility] 05-19-2024 10:44-0400 Heart rate 80 /min MARYANNE Kamara MD Work Phone: [facility] 05-19-2024 10:44-0400 Respiratory rate 16 /min MARYANNE Kamara MD Work Phone: [facility] 05-19-2024 10:44-0400 SaO2% (BldA) [Mass fraction] 100 % MARYANNE Kamara MD Work Phone: [facility] 05-19-2024 10:44-0400 Systolic blood pressure 138 mm[Hg] MARYANNE Kamara MD Work Phone: [facility] 04-28-2024 09:51-0400 Body mass index (BMI) [Ratio] 27.33 kg/m2 MARYANNE Kamara MD Work Phone: [facility] 04-28-2024 09:51-0400 Body temperature 98.2 [degF] MARYANNE Kamara MD Work Phone: [facility] 04-28-2024 09:51-0400 Body weight 86.4 kg MARYANNE Kamara MD Work Phone: [facility] 04-28-2024 09:51-0400 Diastolic blood pressure 87 mm[Hg] MARYANNE Kamara MD Work Phone: [facility] 04-28-2024 09:51-0400 Heart rate 81 /min MARYANNE Kamara MD Work Phone: [facility] 04-28-2024 09:51-0400 Respiratory rate 16 /min MARYANNE Kamara MD Work Phone: [facility] 04-28-2024 09:51-0400 SaO2% (BldA) [Mass fraction] 100 % MARYANNE Kamara MD Work Phone: [facility] 04-28-2024 09:51-0400 Systolic blood pressure 146 mm[Hg] MARYANNE Kamara MD Work Phone: [facility] 11-03-2023 12:30-0400 Body height 177.8 cm Pacc 9 Work Phone: [facility] 11-03-2023 12:30-0400 Body temperature 97.2 [degF] Pacc 9 Work Phone: [facility] 11-03-2023 12:30-0400 Body weight 86.8 kg Pacc 9 Work Phone: [facility] 11-03-2023 12:30-0400 Diastolic blood pressure 82 mm[Hg] Pacc 9 Work Phone: [facility] 11-03-2023 12:30-0400 Heart rate 87 /min Pacc 9 Work Phone: [facility] 11-03-2023 12:30-0400 SaO2% (BldA) [Mass fraction] 99 % Pacc 9 Work Phone: [facility] 11-03-2023 12:30-0400 Systolic blood pressure 117 mm[Hg] Pacc 9 Work Phone: [facility] 10-02-2023 13:36-0500 Body height 177.8 cm Roxana Bah MD Work Phone: [facility] 10-02-2023 13:36-0500 Body weight 87.25 kg Roxana Bah MD Work Phone: [facility] 10-02-2023 13:36-0500 Diastolic blood pressure 96 mm[Hg] Roxana Bah MD Work Phone: [facility] 10-02-2023 13:36-0500 Heart rate 66 /min Roxana Bah MD Work Phone: [facility] 10-02-2023 13:36-0500 Systolic blood pressure 154 mm[Hg] Roaxna Bah MD Work Phone: [facility] 08-31-2023 09:12-0500 Diastolic blood pressure 88 mm[Hg] Cesia WEEKS [facility] 08-31-2023 09:12-0500 Mean blood pressure 102 mm[Hg] Cesia WEEKS [facility] 08-31-2023 09:12-0500 Systolic blood pressure 131 mm[Hg] Cesia WEEKS [facility] 08-31-2023 09:06-0500 Blood Pressure Location Cesia WEEKS [facility] 08-31-2023 09:06-0500 Diastolic blood pressure 90 mm[Hg] Cesia WEEKS [facility] 08-31-2023 09:06-0500 Heart rate 68 /min Cesia WEEKS [facility] 08-31-2023 09:06-0500 Respiratory rate 16 /min Cesia WEEKS [facility] 08-31-2023 09:06-0500 Systolic blood pressure 145 mm[Hg] Cesia WEEKS [facility] 08-25-2023 15:20-0500 Diastolic blood pressure 84 mm[Hg] Cesia WEEKS [facility] 08-25-2023 15:20-0500 Heart rate 82 /min Cesia WEEKS [facility] 08-25-2023 15:20-0500 Systolic blood pressure 128 mm[Hg] Cesia WEEKS [facility] 08-10-2023 11:32-0500 Diastolic blood pressure 105 mm[Hg] Cesia WEEKS [facility] 08-10-2023 11:32-0500 Mean blood pressure 117 mm[Hg] Cesia WEEKS [facility] 08-10-2023 11:32-0500 Systolic blood pressure 142 mm[Hg] Cesia WEEKS [facility] 08-10-2023 11:26-0500 Blood Pressure Location Cesia WEEKS [facility] 08-10-2023 11:26-0500 Diastolic blood pressure 106 mm[Hg] Cesia WEEKS [facility] 08-10-2023 11:26-0500 Heart rate 80 /min Cesia WEEKS [facility] 08-10-2023 11:26-0500 Respiratory rate 16 /min Cesia WEEKS [facility] 08-10-2023 11:26-0500 Systolic blood pressure 144 mm[Hg] Cesia WEEKS [facility] Encounters Encounter Date Encounter Type [...] 05-19-2024 End: 05-20-2024 ambulatory ALEK Donaldson Christy Facility:[facility] Start: 05-17-2024 End: 05-17-2024 Refill Katrina Warner APRN.MICROBIOLOGICAL LABORATORY TECHNICIAN Work Phone: Urology Comment on above: Refill Request Start: 05-12-2024 End: 05-12-2024 ambulatory Mich KAMARA Facility:[facility] Start: 05-12-2024 End: 05-12-2024 Subsequent hospital visit by physician Arrival Time Radiology Work Phone: Radiology Pet CT Comment on above: Rising PSA following treatment for malignant neoplasm of prostate [R97.21] Start: 05-03-2024 End: 05-03-2024 Orders Only Charlene Reynoso [facility] Work Phone: Hematology/Oncology Start: 04-28-2024 End: [...] Start: 04-26-2024 End: 04-26-2024 ambulatory ALEK FATIMA Facility:[facility] Start: 04-20-2024 End: 04-20-2024 ambulatory VIRAL [...] 04-07-2024 Telemedicine consultation with patient Katrina Warner APRN.MICROBIOLOGICAL LABORATORY TECHNICIAN Work Phone: Urology Start: 04-07-2024 End: 04-07-2024 ambulatory KATRINA WARNER Facility:[facility] Start: 03-31-2024 End: 03-31-2024 ambulatory ALEK [facility] Facility:[facility] Start: 03-01-2024 End: 03-01-2024 ambulatory VIRAL HERNANDEZ Not Available Start: 12-30-2023 End: 12-30-2023 ambulatory KATRINA WARNER Facility:[facility] Start: 12-30-2023 End: 12-30-2023 Follow-up encounter Katrina Acostamarques OROZCO.MICROBIOLOGICAL LABORATORY TECHNICIAN Work Phone: Urology Comment on above: Encounter for follow -up surveillance of prostate cancer (Primary Dx); History of prostate cancer; PREETI (stress urinary incontinence), male; Erectile dysfunction following radical prostatectomy Start: 12-30-2023 End: 12-30-2023 Telemedicine consultation with patient Katrina Warner APRN.MICROBIOLOGICAL LABORATORY TECHNICIAN Work Phone: Urology Start: 12-29-2023 End: 12-29-2023 ambulatory [facility] Start: 12-25-2023 End: 12-25-2023 ambulatory ALEK FATIMA Facility:[facility] Start: 11-18-2023 End: 11-18-2023 ambulatory Katrina Warner APRN.MICROBIOLOGICAL LABORATORY TECHNICIAN Work Phone: Urology Comment on above: Prostate cancer (HCC ) (Primary Dx); PREETI (stress urinary incontinence), male Start: 11-18-2023 End: 11-18-2023 Telemedicine consultation with patient Katrina Warner APRN.MICROBIOLOGICAL LABORATORY TECHNICIAN Work Phone: [facility] Start: 11-16-2023 Telephone encounter [facility] Fatima [facility] & Comment on above: Returning Patient's Call Start: 11-12-2023 Telephone encounter [facility] & Comment on above: Returning Patient's Call Follow Up Phone Call Start: 11-10-2023 Telephone encounter [facility]ima [facility] & Start: 11-06-2023 End: 11-06-2023 ambulatory ALEK M DEVANGChristy Facility:[facility] Start: 11-05-2023 End: 11-06-2023 ambulatory ROXANA BAH Facility:[facility] Start: 11-03-2023 End: 11-03-2023 ambulatory [facility] Facility:[facility] Start: 11-03-2023 End: 11-03-2023 Patient encounter procedure John RUIZ Work Phone: Urology Comment on above: Pre-op testing (Prim arnold Dx); Prostate cancer (HCC); Prostate disease Start: 11-03-2023 End: 11-03-2023 Patient encounter status John RUIZ Work Phone: [facility] Work Phone: Start: 11-03-2023 End: 11-03-2023 ambulatory JOHN HUMPHREYS Facility:[facility] Start: 11-03-2023 Encounter for other preprocedural examination JOHN HUMPHREYS [facility] Start: 11-03-2023 End: 11-03-2023 [facility] Main 9 Work Phone: Pre Anesthesia Comment on above: Pre-op evaluation (P rimary Dx); Malignant neoplasm of prostate (HCC); Cardiomyopathy in diseases classified elsewhere (HCC); Chronic ischemic heart disease; Chronic systolic (congestive) heart failure (HCC); Essential hypertension; Mixed hyperlipidemia; Paroxysmal atrial fibrillation (HCC) Start: 11-03-2023 End: 11-03-2023 Admission to establishment Pac Main 9 Work Phone: [facility] Start: 11-03-2023 End: 11-03-2023 Preprocedural examination done Pac Main 9 Work Phone: [facility] Work Phone: Start: 11-03-2023 End: 11-03-2023 ambulatory [facility] Facility:[facility] Start: 11-03-2023 Encounter for other preprocedural examination ROXANA BAH [facility] Start: 11-03-2023 End: 11-03-2023 Subsequent hospital visit by physician Card Injection Molecular Imaging Comment on above: Malignant neoplasm o f prostate (HCC) [C61] Start: 10-14-2023 End: 10-14-2023 ambulatory ALEK FATIMA Facility:[facility] Start: 10-08-2023 Orders Only Casi kruse Urological & Comment on above: Congestive heart mema lure, unspecified HF chronicity, unspecified heart failure [...] Start: 09-14-2023 End: 09-14-2023 ambulatory Cesia Weeks Facility:[facility] Start: 09-14-2023 End: 09-14-2023 ambulatory MD Alek Fatima Work Phone: [facility] Work Phone: Start: 09-14-2023 End: 09-14-2023 Patient encounter procedure MD Alek Fatima Work Phone: [facility]-Pet Scan Work Phone: Start: 09-02-2023 Telephone encounter Cesia Weeks MD Work Phone: [facility] Comment on above: Nm Pet Request Start: 08-31-2023 End: 08-31-2023 ambulatory ROXANA BAH Facility:[facility] Start: 08-31-2023 End: 09-01-2023 ambulatory Cesia WEEKS Facility:[facility] Start: 08-31-2023 End: 08-31-2023 Patient encounter procedure Cesia WEEKS [facility] Start: 08-25-2023 End: 08-26-2023 ambulatory Cesia WEEKS [facility] Work Phone: Start: 08-25-2023 End: 08-25-2023 Departed Referred MD Cesia Weeks Work Phone: [facility] [place] Work Phone: Start: 08-25-2023 End: 08-25-2023 Patient encounter procedure Cesia WEEKS [facility] Start: 08-10-2023 End: 08-11-2023 ambulatory Cesia WEEKS Facility:[facility] Start: 08-10-2023 End: 08-10-2023 Patient encounter procedure Cesai WEEKS [facility] Start: 04-15-2023 ambulatory Cesia WEEKS Facility :[facility] Start: 01-02-2023 End: 01-02-2023 ambulatory [facility] Start: 05-26-2022 End: 05-27-[address] ALEK FATIMA Facility:[facility] Start: 07-03-2021 Encounter for preprocedural laboratory examination DR ALEK FATIMA [facility] Start: 07-01-2021 End: 07-30-[address] ALEK FATIMA Facility:[facility] Start: 06-26-2021 End: 06-27-2021 ambulatory ALEK FATIMA [facility] Start: 06-26-2021 End: 06-27-2021 ambulatory CARYL ACEVEDO [facility] Start: 06-26-2021 End: 06-26-2021 Evaluation and management of inpatient [facility] [address] [place] Start: 06-26-2021 End: 06-26-2021 Subsequent hospital visit by physician [facility] [address] [place] Comment on above: Pain Start: 06-24-2021 End: 06-24-[address] ALEK FATIMA Facility:[facility] Start: 06-24-2021 End: 06-24-2021 Encounter for preprocedural laboratory examination DR ALEK FATIMA Facility:[facility] Start: 06-03-2021 End: 06-03-2021 Documentation procedure Yohan Johnson MD Work Phone: [facility] Internal Medicine Virtual Comment on above: Pre-op Exam Start: 01-28-2021 End: 01-29-2021 ambulatory EHAB A ELTAHAWY Facility:[facility] Procedures Date Procedure Procedure Detail Performing Clinician Start: 11-03-2023 Urnls dip stick/tabl et reagent auto microscopy Bulk Order Provider Start: 11-03-2023 Antibody screen ROXANA BAH Comment on above: Order Comment: Speci men Type: BLOOD SPECIMENOrdering Facility: [facility] Address: [address] [address] Performed By: #### T [id number] ####CC MAIN BLOOD BANKCLIA [id number] [place] [address] [place] Start: 11-03-2023 Myocardial [...] an tigen measurement Prostate Cancer Screening Discussion [facility] Start: 03-31-2029 Prostate specific an tigen measurement Prostate Cancer Screening Discussion [facility] Start: 12-24-2028 Prostate specific an tigen measurement Prostate Cancer Screening Discussion [facility] Start: 11-05-2026 Diabetes Screening Diabetes Screenin mich [facility] Start: 11-02-2026 Diabetes Screening Diabetes Screenin g [facility] Start: 09-15-2024 End: 09-15-2024 ambulatory 09/15/2024 7:30 AM [facility] [address] [id number] Katrina Warner APRN.[address] [address] f/u virtual visit in 3 months. Urology Comment on above: f/u virtual visit in 3 months. Start: 06-27-2024 Diabetes Screening Diabetes Screenin mich [facility] Start: 06-06-2024 End: 06-06-2024 Patient encounter procedure Radiation Oncology Comment on above: Eligard Injection Follow up SIM treating pelvis MIKAL Start: 05-20-2024 End: 08-19-2024 CREATININE BLD CREATININE BLD Lab Routine Malignant neoplasm of prostate (HCC) Expected: 05/20/2024 (Approximate), Expires: 08/19/2024 [facility] Work Phone: Comment on above: Expected: 05/20/2024 (Approximate), Expires: 08/19/2024 Start: 05-19-2024 End: 05-19-2024 Patient encounter procedure 05/19/2024 11:30 AM EDT Office Visit Radiation Oncology [address] [place] [address] Mich Kamara MD [address] [place] [address] SIM treating pelvis MIKAL Radiation Oncology Comment on above: SIM treating pelvis MIKAL Start: 05-19-2024 End: 05-19-2024 Patient encounter procedure Radiation Oncology Comment on above: Follow up after PET Sim Consent and Elig alyssa Injection Start: 05-12-2024 End: 05-12-2024 Patient encounter procedure 05/12/2024 1:30 PM EDT Appointment Radiology Pet CT [address] [place] [address] [place] [address] [address] [address] Comment on above: [facility] PET Start: 05-07-2024 End: 08-06-2024 Prostate specific Ag [Mass/volume] in Serum or Plasma PROSTATE-SPECIFIC ANTIGEN DIAGNOSTIC Lab Routine History of prostate cancer Rising PSA following treatment for malignant neoplasm of prostate Expected: 05/07/2024 (Approximate), Expires: 08/06/2024 [facility] Work Phone: Comment on above: Expected: 05/07/2024 (Approximate), Expires: 08/06/2024 Start: 04-03-2024 Covid-19 Vaccine ( season) Covid-19 Vaccine () [facility] Start: 04-03-2024 Covid-19 Vaccine ( season) Covid-19 Vaccine () [facility] Start: 04-03-2024 Influenza vaccination C [facility] Start: 03-31-2024 End: 06-30-2024 Prostate specific Ag [Mass/volume] in Serum or Plasma PROSTATE-SPECIFIC ANTIGEN DIAGNOSTIC Lab Routine History of prostate cancer Expected: 03/31/2024 (Approximate), Expires: 06/30/2024 [facility] Work Phone: Comment on above: Expected: 03/31/2024 (Approximate), Expires: 06/30/2024 Start: 01-01-2024 End: 04-01-2024 Prostate specific Ag [Mass/volume] in Serum or Plasma PROSTATE-SPECIFIC ANTIGEN DIAGNOSTIC Lab Routine Prostate cancer (HCC) Expected: 01/01/2024 (Approximate), Expires: 04/01/2024 [facility] Work Phone: Comment on above: Expected: 01/01/2024 (Approximate), Expires: 04/01/2024 Start: 11-23-2023 Advance Directive Discussion Advance Directive Discussion [facility] Start: 08-03-2023 Behavioral Health Screening Behavioral Health Screening [facility] Start: 08-03-2023 Depression Assessment Depression Ass essment [facility] Start: 04-03-2023 Covid-19 Vaccine ( season) Covid-19 Vaccine ( season) [facility] Start: 04-03-2023 Influenza vaccination Influenza Vacc ine (#1) [facility] Start: 06-27-2022 Hypertension/CHF/CAD Annual BMP Blood Test Hypertension/CHF/CAD Annual BMP Blood Test [facility] Start: 06-03-2022 Hypertension/CHF/CAD Annual BMP Blood Test Hypertension/CHF/CAD Annual BMP Blood Test [facility] Start: 06-26-2021 End: 06-26-2021 Admission to same day surgery center 06/26/2021 Surgery Operating Room Caryl Acevedo MD [address] [facility] [address] [place] [address] ARTHROPLASTY HIP TOTAL RIGHT ANTERIOR [45228 (CPT )] [facility] Comment on above: ARTHROPLASTY HIP TOT AL RIGHT ANTERIOR [61701 (CPT )] Start: 06-26-2021 End: 06-26-2021 Arthrp acetblr/prox fem prostc agrft/algrft ARTHROPLASTY HIP TOTAL ANTERIOR Unilateral primary osteoarthritis, right hip 06/26/2021 6:30 AM EST [facility] Start: 06-26-2021 Subsequent hospital visit by physician 06/26/2021 Hospital Encounter Operating Room [facility] Start: 05-03-2021 COVID-19 Vaccine (3 - Booster for Pfizer series) COVID-19 Vaccine (3 - Booster for Pfizer series) [facility] Start: 04-27-2021 Adolescent depressio n screening assessment Depression Screening [facility] Start: 04-27-2021 Depression Screening Depression Scre ening [facility] Start: 04-27-2021 Hepatitis C screening Hepatitis C Sc reening [facility] Start: 04-27-2021 HIV screening HIV Screening [facility] Start: 04-27-2021 Lipid panel Cholesterol Sc reening (Lipid Panel) [facility] Start: 04-27-2021 Screening for malign ant neoplasm of colon Colorectal Cancer Screening: Colonoscopy [facility] Start: 04-27-2021 Social Influencers o f Health Screening Social Influencers of Health Screening [facility] Start: 04-03-2021 Influenza vaccination Influenza Vacc ine (#1) [facility] Start: 2018 RSV Vaccine (1 - 1-d ose 60+ series) RSV Vaccine (1 - 1-dose 60+ series) [facility] Start: 2018 RSV Vaccine (1 - Ris k 60-74 years 1-dose series) RSV Vaccine (1 - Risk 60-74 years 1-dose series) [facility] Start: 2013 Prostate specific an tigen measurement Prostate Cancer Screening Discussion [facility] Start: 2008 Shingrix Vaccine (1 of 2) Sky grix Vaccine (1 of 2) [facility] Start: 2008 Zoster Vaccines (1 of 2) Zoste r Vaccines (1 of 2) [facility] Start: 11-23-2003 Screening for malign ant neoplasm of colon [facility] Start: 1993 Lipid panel Lipid Screening [facility] Start: 1977 DTaP,Tdap,and Td Vac cines (1 - Tdap) DTaP,Tdap,and Td Vaccines (1 - Tdap) [facility] Start: 1977 Urine microalbumin profile DTa P,Tdap,Td Vaccine (1 - Tdap) [facility] Start: 1976 Annual PCP Team Logistics Account Manager lianne Disease Visit Annual PCP Team Chronic Disease Visit [facility] Start: 1976 Anxiety Screening Anxiety Screening [facility] Start: 1976 BP Controlled (<130/80) BP Con trolled (<130/80) [facility] Start: 1976 Depression Screening Depression Scre ening [facility] Start: 1976 Hepatitis B surface antibody level LDL Cholesterol [facility] Start: 1976 Hepatitis C screening Hepatitis C Sc reening [facility] Start: 1976 HIV screening HIV Screening [facility] Start: 1976 Spirometry Spirometry [facility] Start: 1970 COVID-19 Vaccine (1) COVID-19 Vaccin e (1) [facility] Start: 1964 Pneumococcal vaccination Pneum ococcal Vaccine (1 of 2 - PCV) [facility] Start: 1964 Pneumococcal Vaccine : 65+ (1 of 2 - PCV) Pneumococcal Vaccine: 65+ (1 of 2 - PCV) [facility] Start: 1964 Pneumococcal Vaccine : Pediatrics (0 to 5 Years) and At-Risk Patients (6 to 64 Years) (1 of 2 - PPSV23) Pneumococcal Vaccine: Pediatrics (0 to 5 Years) and At-Risk Patients (6 to 64 Years) (1 of 2 - PPSV23) [facility] Bacteria identified in Urine by Culture URINE CULTURE Microbiology Routine Prostate cancer (HCC) Prostate disease Ordered: 11/03/2023 [facility] Work Phone: Comment on above: Ordered: 11/03/2023 CT Guidance for radi ation treatment of Unspecified body region CT SIM PLANNING RADIATION ONCOLOGY Radiology Routine History of prostate cancer Ordered: 05/19/2024 [facility] Work Phone: Comment on above: Ordered: 05/19/2024 End: 10-07-2024 Echocardiography ECHO Cardiology Routine Congestive heart failure, unspecified HF chronicity, unspecified heart failure type (HCC) 1 Occurrences starting 10/08/2023 until 10/07/2024 [facility] Work Phone: Comment on above: 1 Occurrences starti ng 10/08/2023 until 10/07/2024 End: 06-18-2025 MR Cervical spine WO and W contrast IV MRI CERVICAL SPINE WO/W IVCON Radiology Routine History of prostate cancer 1 Occurrences starting 05/19/2024 until 06/18/[address] [facility] Comment on above: 1 Occurrences starti ng 05/19/2024 until 06/18/2025 End: 11-05-2024 NM Heart Perfusion W stress and W radionuclide IV NM CARDIAC PERF STRESS/PHARM Radiology Routine Malignant neoplasm of prostate (HCC) 1 Occurrences starting 10/07/2023 until 11/05/2024 [facility] Work Phone: Comment on above: 1 Occurrences starti ng 10/07/2023 until 11/05/2024 End: 05-28-2025 PET+CT Guidance for localization of tumor of Whole body-- W 18F-FDG IV NM PET/CT PROSTATE WHOLE BODY IMAGING Radiology Routine Rising PSA following treatment for malignant neoplasm of prostate 1 Occurrences starting 04/28/2024 until 05/28/2025 [facility] Work Phone: Comment on above: 1 Occurrences starti ng 04/28/2024 until 05/28/2025 PET+CT Guidance for localization of tumor of Whole body-- W 18F-FDG IV NM PET/CT PROSTATE WHOLE BODY IMAGING Radiology Routine Rising PSA following treatment for malignant neoplasm of prostate 05/12/2024 2:55 PM EDT [facility] Work Phone: End: 06-22-2025 XR Facial bones 3 Views XR FACIAL BONES 3V AP/LAT/WEEKS Radiology Routine Prostate cancer (HCC) 1 Occurrences starting 05/23/2024 until 06/22/2025 [facility] Work Phone: Comment on above: 1 Occurrences starti ng 05/23/2024 until 06/22/2025 [facility] Immunizations Immunization Date Immunization Notes Care Provider Fa cility 11-01-2020 SARS-CoV-2 (COVID-19 ) mRNA BNT-162b2 vax Cesia WEEKS [facility] 10-11-2020 SARS-CoV-2 (COVID-19 ) mRNA BNT-162b2 vax Cesia WEEKS [facility] NEGATED: Highlighted row has not occurred!08-25-2023 influenza virus vaccine, unspecified formulation Cesia WEEKS [facility] Payers Date Payer Category Payer Medicare MEDICARE MEDICAR E A AND B [id number] 2023-Present [phone] [place] [address] Medicare [id number] 2023 Medicare [id number] 2023 Self-pay [id number] 2021 Unknown [id number] 2021 Unknown [id number] 2018 Unknown [employer] M [employer] SUPERMED [id number] 2018-Present [address] [place] [address] [id number] 1959 Self-pay [id number] 1959 Unknown [id number] 1958 Unknown [id number] 1958 Unknown [id number] 1958 Unknown [id number] 1958 Unknown [id number] 1958 Unknown [id number] [id number] 1958 Unknown [id number] [id number] 1958 Unknown [id number] [id number] 1958 Unknown [id number] [id number] 1958 Unknown [id number] [id number] 1958 Unknown [id number] [id number] 1958 Unknown [id number] [id number] 1958 Unknown [id number] [id number] Unknown [id number] [id number] Unknown [id number] [id number] Social History Date Type Detail Facility Tobacco smoking stat [facility] Unknown if ever smoked [facility] Work Phone: Start: 1960 Sex Assigned At Not on file T [facility] Start: 06-25-2021 End: 11-03-2023 Tobacco smoking status AZIS Never smoker [facility] Start: 06-25-2021 End: 04-28-2024 Alcohol intake Lifetime non-drinker (finding) [facility] Start: 06-25-2021 History SDOH Alcohol Frequency 1 [facility] Exposure to SARS-CoV -2 (event) Not sure [facility] Tobacco smoking status Never [facility] Start: 11-03-2023 End: 04-28-2024 Sex Assigned At Male [facility] Start: 1960 Sex Assigned At Male [facility] Start: 11-03-2023 Tobacco use and exposure Smokeless tobacco non-user [facility] Start: 11-03-2023 End: 04-28-2024 History of Social function [facility] Medical Equipment Procedure Code Equipment Code Equipment Origin al Text Equipment Identifier Dates Hip G7 [employer] A cet Shell 56f - Sna - [id number] 21)[id number], [id number] FDA Start: 06-26-2021 Liner G7 Neutral Ve 36mm F - Sna - [id number])NA, [id number] FDA Start: 06-26-2021 Complete Ho Collarless Sz 7.5 - Sna - [id number]/[facility], [id number] FDA Start: 06-26-2021 Hip Hd Blx D Fem 36mm +7mm - [facility] - [id number]/[facility], [id number] FDA Start: 06-26-2021 Functional Status Date Assessment Result Facility 08-31-2023 Functional Status N/A [facility] 08-25-2023 Functional Status N/A [facility] 08-10-2023 Functional Status N/A [facility] Clinical Notes 06-03-2021 to 05-23-2024 Telephone Encounter - Roxy Armstrong RN - 05/23/2024 3:14 PM EDTTelephone Encounter - Roxy Armstrong RN - 05/23/2024 3:14 PM EDTTelephone Encounter - Roxy Armstrong RN - 05/23/2024 1:38 PM EDT Note Date & Type Note Facility 05-23-2024 Telephone encounter Note Order faxed to [facility]. Roxy Armstrong RN [facility] 05-23-2024 Miscellaneous Notes Order faxed to [facility]. Roxy Armstrong RN Call received from [facility]- 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 They need to get an order for XRay ORbits to make sure he does not have any metal. Please sign and we will fax to [facility]. Roxy Armstrong RN documented in this encounter 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 They need to get an order for XRay ORbits to make sure he does not have any metal. Please sign and we will fax to [facility]. Roxy Armstrong RN [facility] 05-23-2024 Telephone encounter Note Order Signed. Roxy Armstrong RN [facility] 05-23-2024 Miscellaneous Notes Order Signed. Roxy Armstrong RN Please sign pended Creat for [facility]. Roxy Armstrong RN documented in this encounter [facility] 05-20-2024 Telephone encounter Note Please sign pended Creat for [facility]. Roxy Armstrong RN [facility] 05-19-2024 Note HNO ID: [id number] Author: Mich KAMARA MD Service: ? Author [...] bilateral pelvic lymph node dissection for 11/05/2023, Sells 8 (4+4) pT3a pN0, with detectable and [...] any questions regarding this interpretation, please call [phone]. If you are unable to reach us at the number above, please feel free to contact [facility] at [phone]. Results-Findings * * *Final Report* * * [...] * Prostate Cancer Grade: Grade Group 5 (Sells score 4 + 5) * PSA: 0.18 [...] SPECT 11/03/2023. -Pr (more content not included)... [facility] 05-19-2024 History of Present illness Narrative Radiation Oncology - Prostate Cancer New Patient/Consult Note PATIENT NAME: Sukhdeep Gamino PATIENT REQUESTING PROVIDER: Katrina Saul CNP OTHER PROVIDERS: Dr. Alek Fatima, Dr. Mayo Bah DIAGNOSIS: 63 year old male with prostate adenocarcinoma, initial PSA 7.9, biopsy Sells score 4 + 5 = 9 (grade group 5), clinical stage T2c, N0, M0, status post robotic radical prostatectomy and bilateral pelvic lymph node dissection for 11/05/2023, Sells 8 (4+4) pT3a pN0, with detectable and [...] any questions regarding this interpretation, please call [phone]. If you are unable to reach us at the number above, please feel free to contact [facility] at [phone]. Results-Findings * * *Final Report* * * [...] * Prostate Cancer Grade: Grade Group 5 (Sells score 4 + 5) * PSA: 0.18 [...] ultrasound-guided biopsy on 08/25/2023, with finding of Sells grade group 5 (4+5) from the left [...] ^Rfl: fluticasone (FLONASE) 50 mcg/actuation nasal spray^1 [employer].^Disp: ^Rfl: iv contrast (will be provided with [...] by: Mich Kamara MD cc: Alek Fatima [address] [place] [address] Katrina Warner [address] [address] documented in this encounter [facility] 05-17-2024 Telephone encounter Note Requested Prescriptions Pending Prescriptions Disp Refills Tadalafil (CIALIS) 5 mg tablet 90 tablet 1 Sig: Take 1 tablet by mouth once daily. [facility] 05-17-2024 Miscellaneous Notes Requested Prescriptions Pending Prescriptions Disp Refills Tadalafil (CIALIS) 5 mg tablet 90 tablet 1 Sig: Take 1 tablet by mouth once daily. documented in this encounter [facility] 05-12-2024 History of Present illness Narrative [...] 1330 PATIENT DISCHARGED TO: Ambulatory patient, left NH department area. A Diagnostic radioactive procedure has taken place, with no further precautions necessary other than routine body substance precautions. More information regarding radiation safety can be found using this link: [email or web address] [email or web address]-%20Diagnostic%20Nucl ear%20Medicine%20Procedures.pdf SIGNATURE: RT Fiorella(Betty) PATIENT NAME: Sukhdeep Gamino DATE: May 12, 2024 TIME: 2:08 PM PAGER/CONTACT #: documented in this encounter [facility] 05-12-2024 Note HNO ID: [id number] Author: ZENAIDA WINTER RN Service: ? Author [...] DATE: May 12, 2024 TIME: 1:37 PM [facility] 05-12-2024 Note HNO ID: [id number] Author: MAKENZIE REYNOSO RT(R) Service: ? Author [...] 1330 PATIENT DISCHARGED TO: Ambulatory patient, left NH department area. A Diagnostic radioactive procedure has taken place, with no further precautions necessary other than routine body substance precautions. More information regarding radiation safety can be found using this link: [email or web address] [email or web address]-% 20Diagnostic%20Nuclear%20Medicine %20Procedures.pdf SIGNATURE: RT Fiorella(R) PATIENT NAME: Sukhdeep Gamino DATE: May 12, 2024 TIME: 2:08 PM PAGER/CONTACT #: [facility] 04-28-2024 Telephone encounter Note Pharmacist: Will you please enter Eligard 45mg orders and route to Dr. Kamara? Eligard and SIM to be scheduled after PSMA PET which is pending insurance approval. Thanks Divina Braswell RN [facility] 04-28-2024 Miscellaneous Notes Pharmacist: Will you please enter Eligard 45mg orders and route to Dr. Kamara? Eligard and SIM to be scheduled after [facility] PET which is pending insurance approval. Thanks Divina Braswell RN documented in this encounter [facility] 04-28-2024 Telephone encounter Note PSMA Comments for Forensic Investigator: Joseph Gaming the patient need anesthesia: No [...] flotufolastat,18F flotufolastat Pos[place] MC GA68 [facility] PET 01580/LOCAMETZ (Gallium GA-68 Gozetotide) (6 mCi) A9800 - MC [place] (Flotufolastat F18) (8mCi), [id number] - Region Auth#: Date Range: NPI: Member ID: Medicare Site/Contact: Case/Ref#: Notes: Route to MC or Requested Scheduling Pool: P PET COLOR MAKER FORMULATOR MC, P [facility] CLERICAL POOL([place]), P [facility] 04-28-2024 Miscellaneous Notes PSMA Comments for Forensic Investigator: Joseph Will the patient need anesthesia: No Primary Insurance: Medicare B Effective Date: 04-26-24 Date of Initial PET: N/A Cancer Type: Prostate Cancer Date of Subsequent PET scan: Pend scheduling S1 ABN Required: No Diagnosis: Rising PSA following treatment for malignant neoplasm of prostate [R97.21] Initial/Subsequent: Subsequent Pathology: 11-05-23 Prostate, radical prostatectomy: - Prostatic adenocarcinoma, Sells score 4+4=8 Grade Group 4 Labs: 04-26-24 [...] F-18 flotufolastat,18F flotufolastat Pos[place] GA68 [facility] PET 29681/LOCAMETZ (Gallium GA-68 Gozetotide) (6 mCi) A9800 - [place] (Flotufolastat F18) (8mCi), [id number] - Region Auth#: Date Range: NPI: Member ID: Medicare Site/Contact: Case/Ref#: Notes: Route to or Requested Scheduling Pool: P PET COLOR MAKER FORMULATOR , P [facility] CLERICAL POOL([place]), [facility] This form is used for MAIN CAMPUS APPOINTMENTS ONLY. Is this request for a [facility] PET scan appointment? Yes: Risk Control Product Liability Director: OSWALDO Ramirez Requesting Person (Last Name, First Name): [employer] Area Code + Phone/Pager: [phone] Who do we call to schedule this appointment? Other Contact: [facility] PET in [place], Route to Regine Reynoso to schedule. Requesting Staff [place] Area Code + Phone/Pager: [phone] PET Orders (A delay in scheduling will [...] P COORD REVIEW documented in this encounter [facility] 04-28-2024 Nurse Note Radiation Therapy - Patient Education Note PATIENT NAME: Sukhdeep Gamino PATIENT April 28, 2024 [facility] FACILITY[facility]LOCATION: [facility] READINESS TO LEARN Cognitive Ability: Alert [...] need for social work, van service, and shock absorption floor layer. Was PED reviewed? No Patient has an Onbody or Implanted device: No Signed by: Divina Braswell RN [facility] 04-28-2024 Nurse Note Radiation Therapy - Patient Education Note PATIENT NAME: Sukhdeep Gamino PATIENT April 28, 2024 [facility] FACILITY[facility]LOC[facility]: [facility] READINESS TO LEARN Cognitive Ability: Alert [...] need for social work, van service, and shock absorption floor layer. Was PED reviewed? No Patient has an Onbody or Implanted device: No Signed by: Divina Braswell RN documented in this encounter [facility] 04-28-2024 Telephone encounter Note This form is used for MAIN CAMPUS APPOINTMENTS ONLY. Is this request for a [facility] PET scan appointment? Yes: Risk Control Product Liability Director: OSWALDO Ramirez Requesting Person (Last Name, First Name): [place] Area Code + Phone/Pager: [phone] Who do we call to schedule this appointment? Other Contact: [facility] PET in [place], Route to [facility] to schedule. Requesting Staff [place] Area Code + Phone/Pager: [phone] PET Orders (A delay in scheduling will [...] Send requests to P COORD REVIEW MC [facility] 04-28-2024 History of Present illness Narrative [...] A. Prostate, radical prostatectomy: - Prostatic adenocarcinoma, Sells score 4+4=8 with tertiary pattern 5, Grade [...] (usual) Histologic Grade Grade Grade group 4 (Sells Score 4 + 4 = 8) Intraductal [...] fluticasone (FLONASE) 50 mcg/actuation nasal spray 1 [place]. PAST MEDICAL HISTORY Diagnosis Date Asthma Atrial [...] ASSESSMENT/PLAN: Prostate adenocarcinoma, initial PSA 7.9, biopsy Sells score 4 + 5 = 9 (grade [...] Mich Kamara MD cc: Alek Fatima [address] [place] [address] Katrina Warner [phone] [phone] documented in this encounter [facility] 04-28-2024 Note HNO ID: [id number] Author: Mich KAMARA MD Service: ? Author [...] ultrasound-guided biopsy on 08/25/2023, with finding of Sells grade group 5 (4+5) from the left [...] (usual) Histologic Grade Grade Grade group 4 (Sells Score 4 + 4 = 8) Intraductal [...] (1-2 pads) 1 (more content not included)... [facility] 04-28-2024 Nurse Note AUA= 2 Pacemaker/Defibrillator?N Previous Cancer(s)?N Previous Radiation?N Lupus/Scleroderma?N On body monitoring device?N [facility] 04-28-2024 Nurse Note AUA= 2 Pacemaker/Defibrillator?N Previous Cancer(s)?N Previous Radiation?N Lupus/Scleroderma?N On body monitoring device?N documented in this encounter [facility] 04-28-2024 Note Education (MARIBEL) SUHKDEEP GAMINO ([id number]) 1960 [place] Date Time Provider Department 04/28/24 DIVINA BRASWELL Reason for Visit: Patient Education [91] Visit Notes: >> Divina Braswell LPN [place] Apr 28, 2024 3:21 PM Status: Signed Radiation Therapy - Patient Education Note PATIENT NAME: Sukhdeep Gamino PATIENT April 28, 2024 [facility] FACILITY[facility]: [facility] READINESS TO LEARN Cognitive Ability: Alert [...] need for social work, van service, and shock absorption floor layer. Was PED reviewed? No Patient has an [...] fluticasone (FLONASE) 50 mcg/actuation nasal spray 1 [place]. Encounter Status:Closed by DIVINA BRASWELL on 04/28/24 [facility] 04-07-2024 History of Present illness Narrative VIRTUAL VISIT PROGRESS NOTE This is a virtual visit using Stublisher Zoom Video Visit. It required patient-provider interaction for the medical decision making as documented below. I have communicated my name and active licensure. The patient's identity and physical location were verified at the time of this visit. Either the patient or their legal traveling representative has been informed of the risks [...] A. Prostate, radical prostatectomy: - Prostatic adenocarcinoma, Sells score 4+4=8 with tertiary pattern 5, Grade [...] fluticasone (FLONASE) 50 mcg/actuation nasal spray 1 [place]. No current facility-administered medications for this visit. [...] rationale for Rad/Onc referral He has improving RPEETI- down to 1 pad/day Admits to ED [...] which included preparing to see the patient, [id number] patient care, completing clinical documentation, counseling and educating the patient/family/caregiver, and ordering medications, tests, or procedures Katrina Warner APRN.CNP documented in this encounter [facility] 04-07-2024 Note HNO ID: [id number] Author: KATRINA WARNER APRN.CNP Service: ? Author Type: Nurse Practitioner Type: Progress Notes Filed: 04/07/2024 17:13 Note Text: VIRTUAL VISIT PROGRESS NOTE This is a virtual visit using Regenerateom Video Visit. It required patient-provider interaction for the medical decision making as documented below. I have communicated my name and active licensure. The patient's identity and physical location were verified at the time of this visit. Either the patient or their legal traveling representative has been informed of the risks and benefits of -- and alternatives to -- treatment through a remote evaluation and consents to proceed with the evaluation remotely. Persons Present: patient Chief Complaint/Reason: follow up Clinic note from 12/30/2023 copied and updated. HPI: Sukhdeep Gmaino is a 63 year old male diagnosed [...] A. Prostate, radical prostatectomy: - Prostatic adenocarcinoma, Sells score 4+4=8 with tertiary pattern 5, Grade [...] fluticasone (FLONASE) 50 mcg/actuation nasal spray 1 [place]. No current facility-administered medications for this visit. [...] demand dosing where (more content not included)... [facility] 12-30-2023 History of Present illness Narrative VIRTUAL VISIT PROGRESS NOTE This is a virtual visit using Regenerateom Video Visit. It required patient-provider interaction for the medical decision making as documented below. I have communicated my name and active licensure. The patient's identity and physical location were verified at the time of this visit. Either the patient or their legal traveling representative has been informed of the risks [...] fluticasone (FLONASE) 50 mcg/actuation nasal spray 1 [place]. No current facility-administered medications for this visit. [...] which included preparing to see the patient, [id number] patient care, completing clinical documentation, counseling and educating the patient/family/caregiver, and ordering medications, tests, or procedures Katrina Warner APRN.CNP documented in this encounter [facility] 12-30-2023 Note HNO ID: [id number] Author: KATRINA WARNER APRN.CNP Service: ? Author Type: Nurse Practitioner Type: Progress Notes Filed: 12/30/2023 17:24 Note Text: VIRTUAL VISIT PROGRESS NOTE This is a virtual visit using Regenerateom Video Visit. It required patient-provider interaction for the medical decision making as documented below. I have communicated my name and active licensure. The patient's identity and physical location were verified at the time of this visit. Either the patient or their legal traveling representative has been informed of the risks [...] A. Prostate, radical prostatectomy: - Prostatic adenocarcinoma, Sells score 4+4=8 with tertiary pattern 5, Grade [...] fluticasone (FLONASE) 50 mcg/actuation nasal spray 1 [place]. No current facility-administered medications for this visit. [...] -Follow up virtua (more content not included)... [facility] 12-29-2023 Note [facility] Cardiology Clinic Note Chief Complaint: Patient here for 1 year follow up CAD, chronic systolic heart failure, and hypertension. Had routine labs w/ lipid last January 2023. Had echo last month at [facility]. HPI: Sukhdeep Gamino is a 63 y.o. [...] thromboembolic prophylaxis given his atrial fibrillation and [id number] score; given significant bruising and ecchymosis, he can safely stop aspirin and continue on Coumadin alone given stable coronary artery disease Treat noncardiac comorbidities as clinically appropriate Return to clinic in 1 year or sooner should problems arise Adriana Huff MD, MPH, FACC, [facility] Interventional Cardiology Pager Email: [email or web address] 11-18-2023 History of Present illness Narrative VIRTUAL VISIT PROGRESS NOTE This is a virtual visit using Stublisher Zoom Video Visit. It required patient-provider interaction for the medical decision making as documented below. I have communicated my name and active licensure. The patient's identity and physical location were verified at the time of this visit. Either the patient or their legal traveling representative has been informed of the risks [...] A. Prostate, radical prostatectomy: - Prostatic adenocarcinoma, Sells score 4+4=8 with tertiary pattern 5, Grade [...] fluticasone (FLONASE) 50 mcg/actuation nasal spray 1 [place]. bicalutamide (CASODEX) 50 mg tablet Take 1 [...] test, echo, and EKG) to his local porcelain turner at [phone] per patient request There are no Patient Instructions on file for this visit. I spent a total of 45 minutes on the date of the service which included preparing to see the patient, fwyg-vv-bftb patient care, completing clinical documentation, counseling and educating the patient/family/caregiver, and ordering medications, tests, or procedures Katrina Warner APRN.JC documented in this encounter [facility] 11-18-2023 Note HNO ID: [id number] Author: KATRINA WARNER APRN.[facility] Service: ? Author Type: Nurse Practitioner Type: Progress Notes Filed: 11/18/2023 15:56 Note Text: VIRTUAL VISIT PROGRESS NOTE This is a virtual visit using Stublisher Zoom Video Visit. It required patient-provider interaction for the medical decision making as documented below. I have communicated my name and active licensure. The patient's identity and physical location were verified at the time of this visit. Either the patient or their legal traveling representative has been informed of the risks [...] fluticasone (FLONASE) 50 mcg/actuation nasal spray 1 [place]. bicalutamide (CASODEX) 50 mg tablet Take 1 [...] Reviewed post-op phy (more content not included)... [facility] 11-16-2023 Miscellaneous Notes Returned call to Mr. Gamion regarding incontinence. Given directions on how to properly do kegel exercises and how many. Handout emailed to him. He will call the office with any further questions or concerns. Casi Rocha RN, BSN Triage Nurse Department of Urology [facility] documented in this encounter [facility] 11-12-2023 Miscellaneous Notes Spoke to Mr. Gamino. Advised to stop cipro. Keflex has been called in for him. He can take antihistamine as advised. Patient verbalized understanding. All questions answered. Casi Rocha RN, BSN Triage Nurse Department of Urology [facility] documented in this encounter [facility] 11-12-2023 Miscellaneous Notes Spoke to Mr. [...] RN, BSN Triage Nurse Department of Urology [facility] documented in this encounter [facility] 11-10-2023 Miscellaneous Notes Notified patient that per Dr. Bah, it is okay for him to take his short course of cipro for his padgett catheter. Pt verbalized understanding. All questions answered. Casi Rocha RN, BSN Triage Nurse Department of Urology [facility] documented in this encounter [facility] 11-06-2023 Note HNO ID: [id number] Author: NAYELY FLOR MD Service: Urology Author Type: Resident Type: Progress Notes Filed: 11/06/2023 07:43 Note Text: [facility] UROLOGY PROGRESS NOTE Name: Sukhdeep Gamino Bed: Main - Periop OR/Main - * Date: 11/06/2023 After Hours [facility] Urology Service Pager: [phone] ASSESSMENT AND PLAN Sukhdeep Gamino is a [...] 2019: LVEF 40% Chronic ischemic heart disease [facility] x3, most recent ~2018. -NM Cardiac Perfusion [...] N V CP SOB Hb 11.6 (11.6) Fleece Tier 1.23 (1.29) Objective Vital Signs BP 110/74 [...] 1.29* GLUC 190* 134* 105* Imaging Reviewed [facility] 11-06-2023 Note HNO ID: [id number] Author: FLORI OCHOA MD Service: Urology Author [...] continue telemetry Flori Ochoa MD Urology PGY3 [facility] [place] Personal pager: [phone] On weekends and after 5PM, please page [phone] [facility] 11-05-2023 Note HNO ID: [id number] Author: FLORI OCHOA MD Service: Urology Author Type: Resident Type: Progress Notes Filed: 11/05/2023 21:03 Note Text: [facility] UROLOGY PROGRESS NOTE Name: Sukhdeep Gamino Bed: Main - Periop OR/Main - * Date: 11/05/2023 After Hours [facility] Urology Service Pager: [phone] ASSESSMENT AND PLAN Sukhdeep Gamino is a [...] 2019: LVEF 40% Chronic ischemic heart disease [facility] x3, most recent ~2018. -NM Cardiac Perfusion Test 11/03/2023: negative for ischemia Chronic systolic (congestive) heart failure (HCC) -ECHO 2019: LVEF 40% Essential hypertension Carvedilol, Diltiazem and Lisinopril. Mixed hyperlipidemia Pravastatin Paroxysmal atrial fibrillation (HCC) Carvedilol, Diltiazem. On OAC Coumadin. SUBJECTIVE Pt with expected post op pain No N V CP SOB Hb 11.6 (14.3) Fleece Tier 1.29 (1.29) Objective Vital Signs BP 139/89 [...] 25* CREAT 1.29* GLUC 105* Imaging Reviewed [facility] 11-05-2023 Note HNO ID: [id number] Author: SAL ALONSO SRNA Service: ? Author [...] November 05, 2023 TIME: 1:34 PM CSN: [id number] [facility] 11-05-2023 Note HNO ID: [id number] Author: SAL ALONSO SRNA Service: ? Author [...] November 05, 2023 TIME: 1:29 PM CSN: [id number] [facility] 11-05-2023 Note HNO ID: [id number] Author: SAL ALONSO SRNA Service: ? 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 Author Type: Physician Help Desk Supervisor Type: Progress Notes Filed: 11/03/2023 15:06 Note Text: [facility] PRE-OP NOTE Sukhdeep Gamino is a 62 year old male. Pre-op Date: November 03, 2023 Date of Procedure: 11/05/2023 Does the patient have an active COVID-19 test in [facility]? N/A Procedure/Surgery: RALP Diagnosis: prostate cancer Primary [...] scheduled: Yes Consent Signed: Consent not in [facility]. Surgeon notified via staff mesage. DOS Orders Placed and Signed: Yes. Pre-op HANDP Done by [employer]pro: Yes. PATIENT INSTRUCTIONS FOR SURGERY 1.) DO [...] pending LABS. John Humphreys PA-C Electronically signed [facility] 11-03-2023 History of Present illness Narrative [facility] PRE-OP NOTE uSkhdeep Gamino is a 62 year old male. Pre-op Date: November 03, 2023 Date of Procedure: 11/05/2023 Does the patient have an active COVID-19 test in [facility]? N/A Procedure/Surgery: RALP Diagnosis: prostate cancer Primary [...] scheduled: Yes Consent Signed: Consent not in [facility]. Surgeon notified via staff mesage. DOS Orders Placed and Signed: Yes. Pre-op H&P Done by [employer]: Yes. PATIENT INSTRUCTIONS FOR SURGERY 1.) DO [...] John Humphreys PA-C documented in this encounter [facility] 11-03-2023 Instructions Haily Nunez PA-C - 11/03/2023 1:10 PM EDT PATIENT PREOPERATIVE INSTRUCTIONS Roxana Bah MD has scheduled you for your procedure at this surgery center: [facility] Scheduling Office: [phone] --[address] [place] [address]. Please read below carefully for your personalized [...] call the Thursday before. Your surgeon s mill order scheduler will tell you what time to call the office. - If you have not reached the departmental mill order scheduler by 5 P.M., call [phone] after 5 P.M. the day before your surgery. Please be aware that emergency situations arise, which may delay or change your surgical time. If this happens, we will notify you as soon as possible and regret any inconvenience. If you already have an Advance Directive, please fax a copy to [phone] or email to for it to be [...] Haily Nunez PA-C documented in this encounter [facility] 11-03-2023 History and physical note Images [...] any new or worsening cardiac symptoms. Follows porcelain turner in [place] last OV 01/2023. Reports compliance to medication. Denies any history of stents, CABG, reports [facility] x3, most recent ~2017. Recent cardiac testing [...] Pravastatin Paroxysmal atrial fibrillation (HCC) Assessment: Follows porcelain turner Dr. Lozano , last OV 01/2023. Reports [...] have a large neck STOP-Bang Score: 3 [id number] Score: Age: <65 Sex: male CHF history: Yes Hypertension history: Yes Stroke/TIA/thromboembolism history: No Vascular disease history: Yes Diabetes history: No [id number] Score: 3 ARISCAT Score: Age: 51-80 Preoperative [...] fevers. Neurological: No history of TIA's, stroke, [employer] tumor, impaired sensorium, hemiplegia, paraplegia or quadraplegia. [...] and hypertension Patient's last office visit with porcelain turner, Dr. Huff, was 02/2024. The following tests and/or procedures were performed: cardiac catheterization and echocardiogram. Negative for: abdominal aortic aneurysm, AICD/PPM, angina, arrhythmia, chest pain, congenital heart defect, DVT/PE, recent [place], murmur/valvular heart disease, PTCA, PVD, open heart [...] fluticasone (FLONASE) 50 mcg/actuation nasal spray 1 [place]. Taking Yes bicalutamide (CASODEX) 50 mg tablet [...] 364 QTC Calculation (Bazett) 462 Calculated R [place] -36 Calculated T [place] 5 Impression ATRIAL FIBRILLATION LEFT AXIS DEVIATION AGE UNDETERMINED ABNORMAL ECG Recent Results (from the past 07740 hour(s)) ECHO Collection Time: 11/03/23 3:14 PM [...] PM PAGER/CONTACT #: documented in this encounter [facility] 11-03-2023 History of Present illness Narrative [...] PATIENT PRESENTS WITH AN IMPLANTABLE OR ATTACHED CRUSHER AND BINDER OPERATOR: No CREATININE: No results found for: CREAT , EGFROTH , EGFRAA P.O.C.T. RESULTS: N/A November 03, [address] PERFORMED: No IV SITE: Ambulatory: A peripheral IV was started in the Left antecubital site with a Angio cath: 22 gauge. POST EXAM PIV STATUS: Discontinued PROCEDURE TYPE: NM Stress: 11.8 mCi Dc58r-Gaongxv was administered IV for Rest Imaging at 0915 by carolyn gomez. 31.2 mCi Lr24h-Oicsgbb was administered IV for Stress Imaging at 1005 by NEMESIO. PATIENT DISCHARGED TO: Ambulatory patient, left NH department area. A Diagnostic radioactive procedure has taken place, with no further precautions necessary other than routine body substance precautions. More information regarding radiation safety can be found using this link: [email or web address] [email or web address]-%20Diagnostic%20Nucl ear%20Medicine%20Procedures.pdf SIGNATURE: RT Channing(Betty) PATIENT [...] ALLERGIES: Reviewed and unchanged MEDICATIONS REVIEWED BY: Fitter'S Assistant PROCEDURE TYPE: NM STRESS: 0.4 mg of Lexiscan was administered IV at 1005 by Meredith Cazares RN . Reversal agent used: None. Expiration date: 06/2025 Lot#: [id number] IV SITE: Ambulatory: A Saline lock was inserted per protocol POST EXAM PIV STATUS: Discontinued PATIENT DISCHARGED TO: Ambulatory patient, left NH department area. A Diagnostic radioactive procedure has taken place, with no further precautions necessary other than routine body substance precautions. More information regarding radiation safety can be found using this link: [email or web address] [email or web address] SIGNATURE: Meredith Cazares RN PATIENT NAME: Sukhdeep Gamino DATE: November 03, 2023 TIME: 10:10 AM PAGER/CONTACT #: documented in this encounter [facility] 11-03-2023 Note HNO ID: [id number] Author: YONG HERNÁNDEZ Tech Service: Nuclear Medicine [...] PATIENT PRESENTS WITH AN IMPLANTABLE OR ATTACHED CRUSHER AND BINDER OPERATOR: No CREATININE: No results found for: CREAT , EGFROTH , EGFRAA P.O.C.T. RESULTS: N/A November 03, [address] PERFORMED: No IV SITE: Ambulatory: A peripheral IV was started in the Left antecubital site with a Angio cath: 22 gauge. POST EXAM PIV STATUS: Discontinued PROCEDURE TYPE: NM Stress: 11.8 mCi [id number]-Jwlvamp was administered IV for Rest Imaging at 0915 by carolyn gomez. 31.2 mCi Pu89u-Tlwdqvr was administered IV for Stress Imaging at [...] 03, 2023 TIME: 9:16 AM PAGER/CONTACT #: [facility] 11-03-2023 Note HNO ID: [id number] Author: MEREDITH CAZARES RN Service: Nursing Author [...] ALLERGIES: Reviewed and unchanged MEDICATIONS REVIEWED BY: Fitter'S Assistant PROCEDURE TYPE: NM STRESS: 0.4 mg of Lexiscan was administered IV at 1005 by Meredith Cazares RN . Reversal agent used: None. Expiration date: 06/2025 Lot#: [id number] IV SITE: Ambulatory: A Saline lock was [...] 03, 2023 TIME: 10:10 AM PAGER/CONTACT #: [facility] 11-03-2023 Note Patient Outreach (UR OLMN) SUKHDEEP GAMINO ([id number]) 1960 M Date Time Provider Department 11/03/23 JOHN HUMPHREYS During your visit today, we recorded the following information about you: Allergies As of Date: 11/03/2023 (No Known Allergies) Date Reviewed: 11/03/2023 Reviewed by: John Humphreys PA - Fully Assessed Visit Diagnosis:Screening for genitourinary condition [Z13.89] Order(s):URINALYSIS, REFLEX MICROSCOPIC [[id number]] Order #: [id number]. #:[id number] Prescriptions as of 11/06/2023 - aspirin, enteric [...] fluticasone (FLONASE) 50 mcg/actuation nasal spray 1 [place]. - bicalutamide (CASODEX) 50 mg tablet Take [...] prostate (HCC) [C61] 08/31/2023 Encounter Status:Closed by [facility], [employer] on 11/06/23 [facility] 10-02-2023 History of Present illness Narrative Images from the original note were not included. Referring Provider: Cesia Weeks Chief Complaint: Prostate cancer HPI Sukhdeep Gamino is a 62 year old male with history of elevated PSA with recent diagnosis of prostate cancer. Most recent PSA 7.8. Underwent prostate biopsy that demonstrated Sells 4+5=9, GG5, 90% highest involvement. Bone scan [...] very high risk prostate cancer (PSA 7.8, Sells 4+6=9, 90% high involvement) with negative bone [...] Roxana Bah MD documented in this encounter [facility] 10-02-2023 Note HNO ID: [id number] Author: ROXANA BAH MD Service: ? Author Type: Physician Type: Progress Notes Filed: 11/08/2023 12:24 Note Text: Referring Provider: Cesia Weeks Chief Complaint: Prostate cancer HPI Sukhdeep Gamino is a 62 year old male with history of elevated PSA with recent diagnosis of prostate cancer. Most recent PSA 7.8. Underwent prostate biopsy that demonstrated Sells 4+5=9, GG5, 90% highest involvement. Bone scan [...] very high risk prostate cancer (PSA 7.8, Sells 4+6=9, 90% high involvement) with negative bone [...] CA Plan : above Roxana Bah MD [facility] 10-02-2023 Note Patient Outreach (UR OLMN) SUKHDEEP GAMINO ([id number]) 1960 M Date Time Provider Department 10/02/23 ROXANA BAH During your visit today, we recorded the following information about you: Allergies As of Date: 10/02/2023 (Not on File) Date Reviewed: 10/02/2023 Reviewed by: Jennyfer Chacon OCCA - Fully Assessed Visit Diagnosis:Screening for genitourinary condition [Z13.89] Order(s):URINALYSIS, REFLEX MICROSCOPIC [[id number]] Order #: [id number]. #:[id number] Prescriptions as of 10/05/2023 - aspirin, enteric [...] fluticasone (FLONASE) 50 mcg/actuation nasal spray 1 [place]. - bicalutamide (CASODEX) 50 mg tablet Take 1 tablet by mouth once daily. Problem List As Of Date: 10/02/2023 (None) Encounter Status:Closed by [facility] on 10/05/23 [facility] 09-02-2023 Miscellaneous Notes PT is OON [employer] Self pay DO NOT SCHEDULE TILL APPROVED, [facility] referral [id number], Questions contact [email or web address] PreAccess obtained approval OK to schedule Authorization number: PSMA Authorization date range: PSMA Primary Insurance: [employer] Self pay OON Diagnosis: Prostate Cancer C61 [...] No - Schedule as requested Comments for Forensic Investigator: Joseph ROUTE TO SCHEDULERS [place] P PET COLOR MAKER FORMULATOR or P NM SPECIAL STUDIES This form is used for MAIN CAMPUS APPOINTMENTS ONLY. Is this request for a [facility] [place] PET scan appointment? Yes: Risk Control Product Liability Director: María Schwartz [facility] Requesting Person Dr Weeks: Area Code + Phone/Pager: [phone] Who do we call to schedule this appointment? Other Contact: [facility] please route to Regine Marcus in [place] for scheduleing pt is approved through [facility] Requesting Staff Dr weeks Area Code + Phone/Pager: [phone] PET Orders (A delay in scheduling will result if the orders are not present at time of review): External. Has the External Clinical Order been scanned into [facility]? Yes ADDITIONAL ACTION MAY BE REQUIRED IF [...] need anesthesia? NO Send requests to P [facility] REVIEW documented in this encounter [facility] 08-31-2023 Hospital Discharge instructions Patient Education [...] under a microscope. This is called the Sells score and the total score can range from 6 10, indicating how likely it is that the cancer will spread (metastasize) to other parts of the body. The higher the score, the greater the likelihood that the cancer will spread. Sells 6 or lower: This indicates that the cancer cells look similar to normal prostate cells (well differentiated). Christine 7: This indicates that the cancer cells look somewhat similar to normal prostate cells (moderately differentiated). Sells 8, 9, or 10: This indicates that [...] stress of having cancer. General instructions Take cozk-teu-uxzyeko and prescription medicines only as told by your health care provider. If you have to go to the hospital, notify your cancer specialist (oncologist). Keep all follow-up visits. This is important. Where to find more information [employer]: www.cancer.org Irish Society of Clinical Oncology: www.cancer.net National Cancer [place]: www.cancer.gov Contact a health care provider if: [...] provider. Document Revised: 10/16/2021 Document Reviewed: 10/16/2021 [facility] Patient Education 2022 Kyp. Follow Up Care 08/10/2023 12:37:56 With:MICKY GARRISON, Cesia Hernández, URL Address: [facility] [address] , [place] [address]- [phone] When: Unknown Comments:f/u pending results of PSMA and bone scans [facility] 08-26-2023 Evaluation + Plan note Future Scheduled TestsPathology Tissue Exam 08/26/23Pathology Tissue Exam 08/26/23Pathology Tissue Exam 08/26/23Pathology Tissue Exam 08/26/23Pathology Tissue Exam 08/26/23Pathology Tissue Exam 08/26/23Pathology Tissue Exam 08/26/23Pathology Tissue Exam 08/26/23Pathology Tissue Exam 08/26/23Pathology Tissue Exam 08/26/23Pathology Tissue Exam 08/26/23Pathology Tissue Exam 08/26/23 [facility] Hospital Discharge instructions Patient Education 08/25/2023 [...] discomfort near your rectum, especially while sitting. [place]-colored urine due to small amounts of blood in your urine. A burning feeling while urinating. Blood in your stool (feces) or bleeding from your rectum. Blood in your semen. Follow these instructions at home: Medicines Take asfz-uvb-gikncmv and prescription medicines only as told by [...] provider. Document Revised: 01/13/2022 Document Reviewed: 01/13/2022 [facility] Patient Education 2022 Kyp. Follow Up Care 08/17/2023 15:34:17 With:MICKY GARRISON, Cesia Hernández, URL Address: [facility] [address], [place] [address]- [phone] When: Unknown Comments:review path on 09/11/23 [facility] 08-10-2023 Note Chief Complaint Referral *Elevated PSA [...] prostate ca. Never has had a ARYAN. ARYNA today: 45gms, benign Discussed PSA levels. The [...] 0.4mg qd. Rx sent to [facility] in [place]. Discussed the medication side effects, and the [...] [facility] [address], [place] [address] [phone] Additional Instructions: sched TRUS/bx Patient Education Transrectal Ultrasound-Guided Prostate Biopsy, Care After Transrectal Ultrasound-Guided Prostate Biopsy Radha Heredia, personally scribed for Dr. Weeks on 08/10/2023 12:29:36. . Documentation recorded by the [place] rivera (more content not included)... [facility] Comment on above: Result Comment: [...] discomfort near your rectum, especially while sitting. [place]-colored urine due to small amounts of blood in your urine. A burning feeling while urinating. Blood in your stool (feces) or bleeding from your rectum. Blood in your semen. Follow these instructions at home: Medicines Take ejlv-pnw-wlogcyd and prescription medicines only as told by [...] provider. Document Revised: 01/13/2022 Document Reviewed: 01/13/2022 [facility] Patient Education 2022 Kyp. 08/10/2023 12:27:58 Transrectal Ultrasound-Guided Prostate Biopsy Transrectal [...] including vitamins, herbs, eye drops, creams, and eqzj-hnn-qmlhqlg medicines. Any problems you or family members [...] provider tells you to take them. Taking lexp-djc-svudxto medicines, vitamins, herbs, and supplements. General instructions [...] provider. Document Revised: 01/13/2022 Document Reviewed: 01/13/2022 [facility] Patient Education 2022 Kyp. Follow Up Care 04/15/2023 08:43:29 With:MICKY GARRISON, Cesia Hernández, URL Address: [facility] [address], [place] [address]- [phone] When: Unknown Comments:sched TRUS/bx [facility] 01-02-2023 Note Continue statin [facility] 01-02-2023 Note Coronary artery dise ase is stable without concerning symptoms Continue GDMT continue risk factor modifications- heart healthy diet, regular exercise as tolerated and continue all medications. [facility] 01-02-2023 Note [facility]- II currently e uvolemic without exacerbation Continue GDMT- ASA, coreg, pravastatin, and lisinopril Diuretic therapy Monitor daily weights, I&O, fluid restriction 1.5-2L/day, renal function and electrolytes- [facility] 01-02-2023 Note B/P elevated today, but he states he rushed here today and typically his b/p is well controlled Continue all meds [facility] 01-02-2023 Note Patient here for 1 [...] All other systems reviewed and are negative. [facility] 01-02-2023 Note [facility] PROGR ESS NOTE HPI: Sukhdeep Gamino is a 62 y.o. 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 Mixed hyper (more content not included)... [facility] 06-03-2021 History of Present illness Narrative [...] advised to discontinue aspirin, NSAIDs, and specific herbals/awiq-zwh-paammyd's preprocedure. Patient has been advised on preoperative [...] at acceptable cardiac risk based on current [place] College of Cardiology/[employer] Heart Association (ACC/AHA) guidelines on zehra-operative cardiovascular evaluation and management of patient's undergoing non-cardiac surgery. Patient actively follows with porcelain turner. Have requested correspondence with patient's porcelain turner for additional risk stratification. Addition of requested [...] cardiac enzymes/EKGs as needed. Correspondence with patient's porcelain turner to assure optimization for surgery and obtain [...] screening questionnaire. Patient should be monitored via [place] standard postop NASRIN protocol least continuous pulse [...] to go right total hip replacement at [facility] scheduled for June 26, 2021. Internal Medicine has been consulted for preoperative medical risk stratification. Please see below regarding the status of active medical conditions and assessment and plan for preoperative medical risk stratification. MEDICAL ILLNESSES : 1. Osteoarthritis involving the right hip as above 2. Hypertension diagnosed in 2019 managed by his primary care physician and porcelain turner 3. Chronic atrial fibrillation diagnosed in 2008. He reports undergoing previous cardioversion at the time of his initial diagnosis but reverted to A. Fib. He denies any history of stroke or atheroembolic phenomena. He is maintained on chronic warfarin 4. Coronary artery disease. Apparently noted to be nonobstructive based upon initial LHC in 2008. Patient states he underwent more recent updated LHC at [facility] in [facility]. He reports he was noted to have some mild disease but did not require any percutaneous intervention or stents. 5. Congestive heart failure. Patient was initially diagnosed with CHF in 2008 requiring hospitalization associate with underlying A. Fib. He now reports chronic systolic heart failure being treated by his porcelain turner and maintained on Entresto and Carvedilol. He [...] transfusions No Previous Transfusion Related Reactions No Oriental Orthodox Reasons To Avoid Blood Transfusions No Personal [...] occasional PETERSON. Positive hypertension. Chronic A. fib. Postdoctoral Research Associate is Dr. Adriana Huff is most recently seen by nurse practitioner April 12, 2021. Patient reports he is undergone 2 previous heart caths one in 2008 and more recently April 2021. Per his description both showed nonobstructive CAD. He also reports undergoing echocardiogram back in 2008 and more recently November 2020 by his porcelain turner. He believes his most recent ejection fraction [...] Yohan Johnson MD documented in this encounter [facility] Evaluation + Plan note Future Appointments Appointment Date:09/11/2023 10:30:00 AM Scheduled Provider:Cesia WEEKS MD Location:[facility] Appointment Type:URO Office Visit [facility] Evaluation note Diagnosis Pain Generalized pain [facility]No assessment information [facility] Work Phone: Evaluation note* Diagnosis Screening for genitourinary condition Screening for other and unspecified genitourinary condition [facility] Diagnosis Malignant neoplasm of prostate (HCC)- Primary Malignant neoplasm of prostate [facility] Diagnosis Congestive heart failure, unspecified HF chronicity, unspecified heart failure type (HCC)- Primary [facility] Diagnosis Pre-op testing- Primary Preoperative examination, unspecified Prostate cancer (HCC) Malignant neoplasm of prostate Prostate disease Unspecified disorder of prostate Malignant neoplasm of prostate (HCC) Malignant neoplasm of prostate [facility] Diagnosis Malignant neoplasm of prostate (HCC) [...] neoplasm of prostate [facility] Diagnosis Screening for genitourinary condition Screening for other and unspecified genitourinary condition [facility] Diagnosis Prostate cancer (HCC)- Primary Malignant neoplasm of prostate [facility]* Diagnosis Prostate cancer (HCC)- Primary Malignant neoplasm of prostate PREETI (stress urinary incontinence), male Stress incontinence, male documented in this encounter [facility] note* Diagnosis Encounter for follow-up surveillance of prostate cancer- Primary Unspecified follow-up examination History of prostate cancer Personal history of malignant neoplasm of prostate PREETI (stress urinary incontinence), male Stress incontinence, male 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 documented in this encounter [facility] note* Diagnosis Pre-op evaluation- Primary Preoperative examination, [...] of organic origin [facility]* Diagnosis Pre-op evaluation- Primary Preoperative examination, [...] neoplasm of prostate documented in this encounter [facility] note* Diagnosis Pre-op evaluation- Primary Preoperative examination, [...] neoplasm of prostate documented in this encounter [facility] note* Diagnosis Pre-op evaluation- Primary Preoperative examination, [...] neoplasm of prostate documented in this encounter [facility] note* Diagnosis Pre-op evaluation- Primary Preoperative examination, [...] neoplasm of prostate documented in this encounter [facility] note* Diagnosis Pre-op evaluation- Primary Preoperative examination, [...] neoplasm of prostate documented in this encounter [facility] note* Diagnosis Pre-op evaluation- Primary Preoperative examination, unspecified Malignant neoplasm of prostate (HCC) Malignant neoplasm of prostate Cardiomyopathy in diseases classified elsewhere (HCC) Chronic ischemic heart disease Chronic ischemic heart disease, unspecified Chronic systolic (congestive) heart failure (HCC) Essential hypertension Unspecified essential hypertension Mixed hyperlipidemia Paroxysmal atrial fibrillation (HCC) Atrial fibrillation Prostate cancer (HCC)- Primary Malignant neoplasm of prostate documented in this encounter [facility] course Narrative No data available for this section [facility] progress note No data available for this section [facility] reason for referral (narrative)* Diagnostic Procedure Only (Routine) - Authorized Specialty Diagnoses / Procedures Referred By Contac t Referred To Contact MOLECULAR & FUNCTIONAL IMAGING Diagnoses Malignant neoplasm of prostate (HCC) Procedures NM CARDIAC PERF STRESS/PHARM MYOCARDIAL SPECT MULTIPLE STUDIES Roxana Bah MD [address] [facility] [address] [place] [address] Molecular & Functional Imaging [address] [place] [address] Referral ID Status Reason Start Date Expiration Date Visits Requested Visits Authorized [id number] Authorized Auto-Generate d Referral Financial Clearance Required - OON Payor Patient Cleared - [employer] Social 10/07/2023 08/02/2024 1 1 [facility] for referral (narrative)* Outpatient Procedure (Routine) - Pending Review Specialty Diagnoses / Procedures [facility] Referred To Contact [facility] VASCULAR [place] Diagnoses Congestive heart failure, unspecified HF chronicity, unspecified heart failure type (HCC) Procedures ECHO ECHO TTHRC R-T 2D W/WOM-MODE COMPL SPEC&COLR D Roxana Bah MD [address] [place] [address] [place] [address] Referral ID Status Reason Start Date Expiration Date Visits Requested Visits Authorized [id number] Pending Review Auto-Generat ed Referral 10/08/2023 10/07/2024 1 1 [facility] for referral (narrative)* Diagnostic Procedure Only (Routine) - Closed Specialty Diagnoses / Procedures [facility] Referred To Contact MOLECULAR & FUNCTIONAL IMAGING Diagnoses Malignant neoplasm of prostate (HCC) Procedures NM CARDIAC PERF STRESS/PHARM MYOCARDIAL SPECT MULTIPLE STUDIES Roxana Bah MD [address] [place] [address] Molecular & Functional Imaging [address] [place] [address] Referral ID Status Reason Start Date Expiration Date V isits Requested Visits Authorized [id number] Closed Auto-Generated Referral Financial Clearance Required - OON Payor Patient Cleared - [employer] Social 10/07/2023 08/02/2024 1 1 T [facility] for referral (narrative)* Diagnostic Procedure Only (Routine) - Authorized Specialty Diagnoses / Procedures [facility] Referred To Contact MOLECULAR & FUNCTIONAL IMAGING Diagnoses Rising PSA following treatment for malignant neoplasm of prostate Procedures NM PET/CT PROSTATE WHOLE BODY IMAGING PET IMAGING CT ATTENUATION SKULL BASE MID-THIGH Mich Kamara MD [address] [place] [address] [place] [address] Molecular & Functional Imaging [address] [place], [place] [id number] Referral ID Status Reason Start Date Expiration Date Visits Requested Visits Authorized [id number] Authorized Auto-Generat ed Referral 04/28/2024 05/28/2025 1 1 [facility] for referral (narrative)* Diagnostic Procedure Only (Routine) - New Request Specialty Diagnoses / Procedures Referred By Blas villarreal Referred To Contact XR IMAGING Diagnoses Prostate cancer (HCC) Procedures XR FACIAL BONES 3V AP/LAT/WEEKS RADEX FACIAL BONES COMPLETE MINIMUM 3 VIEWS Mich Kamara MD [address] [place] [address] [place] [address] Xr Imaging [place] [address] Referral ID Status Reason Start Date Expiration Date Visits Requested Visits Authorized [id number] New Request Auto-Generat ed Referral 06/22/2025 1 1 [facility] for visit Narrative* Auth/Cert Specialty Diagnoses / Procedures Referred By Blas villarreal Referred To Contact Diagnoses Unilateral primary osteoarthritis, right hip RIGHT HIP PAIN Procedures PA ARTHROPLASTY ACETABULAR AND PROXIMAL FEMORAL PROSTHETIC REPLACEMENT (TOTAL HIP ARTHROPLASTY) WITH OR WITHOUT AUTOGRAFT OR ALLOGRAFT ARTHROPLASTY HIP TOTAL RIGHT ANTERIOR Caryl Acevedo MD [address] [place] [address] Brice Goldstein [place] [address] [place] [address] Referral ID Status Reason Start Date Expiration Date Visits Re quested Visits Authorized [id number] 1 1 [facility] for visit Narrative* Diagnostic Procedure Only (Routine) - Closed Specialty Diagnoses / Procedures Referred By Blas villarreal Referred To Contact MOLECULAR & FUNCTIONAL IMAGING Diagnoses Malignant neoplasm of prostate (HCC) Procedures NM CARDIAC PERF STRESS/PHARM MYOCARDIAL SPECT MULTIPLE STUDIES Roxana Bah MD [address] [facility] [address] [place] [address] Molecular & Functional Imaging [address] [place] [address] Referral ID Status Reason Start Date Expiration Date V isits Requested Visits Authorized [id number] Closed Auto-Generated Referral Financial Clearance Required - OON Payor Patient Cleared - [facility] 10/07/2023 08/02/2024 [address] 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 Inspector Expl anation Power of Roll Up Operator Latest Code Status on File Code [...] CERVICAL W/O & W/CONTR Mich Moser MD [address] [place] [address] [place] [address] [place] [address] Referral ID Status Reason Start Date Expiration Date Visits Requested Visits Authorized [id number] New Request Auto-Generat ed Referral 4 06/18/2025 1 1 Specialty Diagnoses / Procedures Referred By Contac t Referred To Contact Diagnoses History of prostate cancer Procedures CT SIM PLANNING RADIATION ONCOLOGY THER RAD SIMULAJ-AIDED FIELD SETTING COMPLEX Mich Kamara MD [address] [place] [address] [place] [address] Referral ID Status Reason Start Date Expiration Date Visits Requested Visits Authorized [id number] New Request PCP Requested Referral 08/17/2024 1 1 Specialty Diagnoses / Procedures Referred By Contac t Referred To Contact Radiation Oncology Diagnoses History of prostate cancer Rising PSA following treatment for malignant neoplasm of prostate Procedures RAD/ONC CONSULT OFFICE/OUTPATIENT NEW HIGH MDM 60 MINUTES Katrina Warner APRN.MICROBIOLOGICAL LABORATORY TECHNICIAN [address] [place] [address] Referral ID Status Reason Start Date Expiration Date Visits Requested Visits Authorized [id number] Authorized PCP Requested Referral 04/07/2024 04/07/2025 1 1 Specialty Diagnoses / Procedures Referred By Conttristen t Referred To Contact [facility] Diagnoses PREETI (stress urinary incontinence), male Procedures CONSULT TO PHYSICAL THERAPY PHYSICAL THERAPY EVALUATION HIGH COMPLEX 45 MINS Katrina Warner APRN.MICROBIOLOGICAL LABORATORY TECHNICIAN [address] [place] [address] [facility] [place] [address] [place] [id number] Referral ID Status Reason Start Date Expiration Date Visits Requested Visits Authorized [id number] Pending Review PCP Requested Referral Auto-Generate d Referral 12/30/2023 12/29/2024 99 99 Additional Source Comments (unrecognized sect ion and content) No Status Records FoundNo Status Records FoundNo Status Records FoundNo Status Records FoundNo Status Records FoundNo Status Records FoundNo Status Records FoundNo Status Records Found INFORMATION SOURCE (unrecogn ized section and content) DATE CREATED AUTHOR 02/07/2021 [facility] DATE CREATED AUTHOR AUTHOR'S ORGANIZ ATION 06/28/2021 [facility] DATE CREATED AUTHOR AUTHOR'S ORGANIZ ATION 05/29/2022 [facility] DATE CREATED AUTHOR AUTHOR'S ORGANIZ ATION 09/17/2023 [facility] DATE CREATED AUTHOR AUTHOR'S ORGANIZ ATION 09/18/2023 [facility] DATE CREATED AUTHOR AUTHOR'S ORGANIZ ATION 12/29/2023 [facility] DATE CREATED AUTHOR AUTHOR'S ORGANIZ ATION 04/23/2024 [facility] DATE CREATED AUTHOR AUTHOR'S ORGANIZ ATION 05/24/2024 [facility] Reason for Visit (unrecogniz ed section and content) Reason Comments Pre-op Exam Reason Comments Nm Pet Request Reason Comments Pre-Op Teaching Specialty Diagnoses / Procedures Referred By Contac t Referred To Contact ANESTHESIOLOGY Diagnoses Malignant neoplasm of prostate (HCC) Procedures REFER TO PACC - PRE ANESTHESIA CONSULTATION CLINIC OFFICE/OUTPATIENT [facility] 60 MINUTES Roxana Bah MD [address] [place] [address] Pre [facility] [address] [place] [address] Referral ID Status Reason Start Date Expiration Date V isits Requested Visits Authorized [id number] Closed PCP Requested Referral Financial Clearance Required - OON Payor [facility] 10/06/2023 10/04/2024 1 1 Specialty Diagnoses / Procedures Referred By Contac t Referred To Contact ANESTHESIOLOGY Diagnoses Malignant neoplasm of prostate (HCC) Procedures REFER TO PACC - PRE ANESTHESIA CONSULTATION CLINIC OFFICE/OUTPATIENT [facility] 60 MINUTES Roxana Bah MD [address] [place] [address] [facility] [address] [place] [address] Specialty Diagnoses / Procedures Referred By Contac t Referred To Contact [facility] Diagnoses Prostate Cancer Procedures NEW PATIENT VISIT Cesia Weeks MD [address] [place] [address] [facility] [address] [place] [address] Referral ID Status Reason Start Date Expiration Date V isits Requested Visits Authorized [id number] Closed Financial Clearance Required - OON Payor Patient Cleared - [facility] 09/18/2023 12/17/2023 1 1 Reason Comments Returning [...] MDM 60 MINUTES Katrina Warner APRN.CNP [address] [place] [address] Referral ID Status Reason Start Date Expiration Date V isits Requested Visits Authorized [id number] Closed PCP Requested Referral 04/07/2024 04/07/2025 1 1 Reason Comments Orders Reason Comments Radiology NM Specialty Diagnoses / Procedures Referred By Contac t Referred To Contact [facility]LECULAR [facility] FUNCTIONAL IMAGING Diagnoses Rising PSA following treatment for malignant neoplasm of prostate Procedures NM PET/CT PROSTATE WHOLE BODY IMAGING PET IMAGING CT ATTENUATION SKULL BASE MID-THIGH Mich Kamara MD [address] [place] [address] [place] [address] [facility] Functional [facility] [address] [place] [id number] Referral ID Status Reason Start Date Expiration Date V isits Requested Visits Authorized [id number] Closed Auto-Generate d Referral 04/28/2024 05/28/2025 1 1 Reason Onset Date Comments Refill Request 05/17/2024 Reason Comments Prostate Cancer Eligard NOT Given Reason Onset Date Comments Simulation Request Form 05/19/2024 Prostate Cancer Reason Comments Orders Care Teams (unrecognized sec tion and content) 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/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 Buffet Relationship Specialty Start Date End Date Alek Fatima MD [address] [place] [address] PCP - General Family Medicine [...] September 14, 2023 End: September 14, 2023 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/Waitress Buffet Relationship Specialty Start Date End Date Alek Fatima MD [address] [facility] [place] [address] PCP - General Family Medicine 10/14/23 Waiter/Waitress Buffet Relationship Specialty Start Date End Date Alek Fatima MD [address] [place] [address] PCP - General Family Medicine 10/14/23 Waiter/Waitress Buffet Relationship Specialty Start Date End Date Alek Fatima MD [address] [place] [address] PCP - General Family Medicine 10/14/23 Waiter/Waitress Buffet Relationship Specialty Start Date End Date Alek Fatima MD [address] [place] [address] PCP - General Family Medicine 10/14/23 Waiter/Waitress Buffet Relationship Specialty Start Date End Date Alek Fatima MD [address] [place] [address] PCP - General Family Medicine 10/14/23 Waiter/Waitress Buffet Relationship Specialty Start Date End Date Alek Fatima MD [address] [place] [address] PCP - General Family Medicine 10/14/23 Waiter/Waitress Buffet Relationship Specialty Start Date End Date Alek Fatima MD [address] [place] [address] PCP - General Family Medicine 10/14/23 Waiter/Waitress Buffet Relationship Specialty Start Date End Date Alek Fatima MD [address] [place] [address] PCP - General Family Medicine 10/14/23 Waiter/Waitress Buffet Relationship Specialty Start Date End Date Alek Fatima MD [address] [place] [address] PCP - General Family Medicine 10/14/23 Waiter/Waitress Buffet Relationship Specialty Start Date End Date Alek Fatima MD [address] [place] [address] PCP - General Family Medicine 10/14/23 Waiter/Waitress Buffet Relationship Specialty Start Date End Date Alek Fatima MD [address] [place] [address] PCP - General Family Medicine 10/14/23 Waiter/Waitress Buffet Relationship Specialty Start Date End Date Alek Fatima MD [address] [place] [address] PCP - General Family Medicine 10/14/23 Waiter/Waitress Buffet Relationship Specialty Start Date End Date Alek Fatima MD [address] [place] [address] PCP - General Family Medicine 10/14/23 Waiter/Waitress Buffet Relationship Specialty Start Date End Date Alek Fatima MD [address] [place] [address] PCP - General Family Medicine 10/14/23 Waiter/Waitress Buffet Relationship Specialty Start Date End Date Alek Fatima MD [address] [place] [address] PCP - General Family Medicine 10/14/23 Waiter/Waitress Buffet Relationship Specialty Start Date End Date Alek Fatima MD [address] [facility] [place] [address] PCP - General Family Medicine 10/14/23 Waiter/Waitress Buffet Relationship Specialty Start Date End Date Alek Fatima MD [address] [place] [address] PCP - General Family Medicine 10/14/23 Waiter/Waitress Buffet Relationship Specialty Start Date End Date Alek Fatima MD [address] [place] [address] PCP - General Family Medicine 10/14/23 Waiter/Waitress Buffet Relationship Specialty Start Date End Date Alek Fatima MD [address] [place] [address] PCP - General Family Medicine 10/14/23 Goals [...] or prosecute any alcohol or drug abuse patient.[facility] the event this information is protected by the Federal Confidentiality of Alcohol and Drug Abuse Patient Records regulations: The Federal rules restrict any use of the information to criminally investigate or prosecute any alcohol or drug abuse patient.[facility] the event this information is protected by the Federal Confidentiality of Alcohol and Drug Abuse Patient Records regulations: The Federal rules restrict any use of the information to criminally investigate or prosecute any alcohol or drug abuse patient.[facility] the event this information is protected by the Federal Confidentiality of Alcohol and Drug Abuse Patient Records regulations: The Federal rules restrict any use of the information to criminally investigate or prosecute any alcohol or drug abuse patient.[facility] the event this information is protected by the Federal Confidentiality of Alcohol and Drug Abuse Patient Records regulations: The Federal rules restrict any use of the information to criminally investigate or prosecute any alcohol or drug abuse patient.[facility] the event this information is protected by the Federal Confidentiality of Alcohol and Drug Abuse Patient Records regulations: The Federal rules restrict any use of the information to criminally investigate or prosecute any alcohol or drug abuse patient.[facility] HospitalIn the event this information is protected by the Federal Confidentiality of Alcohol and Drug Abuse Patient Records regulations: The Federal rules restrict any use of the information to criminally investigate or prosecute any alcohol or drug abuse patient.[facility] HospitalIn the event this information is protected by the Federal Confidentiality of Alcohol and Drug Abuse Patient Records regulations: The Federal rules restrict any use of the information to criminally investigate or prosecute any alcohol or drug abuse patient.[facility] HospitalIn the event this information is protected by the Federal Confidentiality of Alcohol and Drug Abuse Patient Records regulations: The Federal rules restrict any use of the information to criminally investigate or prosecute any alcohol or drug abuse patient.[facility] HospitalIn the event this information is protected by the Federal Confidentiality of Alcohol and Drug Abuse Patient Records regulations: The Federal rules restrict any use of the information to criminally investigate or prosecute any alcohol or drug abuse patient.[facility] HospitalIn the event this information is protected by the Federal Confidentiality of Alcohol and Drug Abuse Patient Records regulations: The Federal rules restrict any use of the information to criminally investigate or prosecute any alcohol or drug abuse patient.[facility] HospitalIn the event this information is protected by the Federal Confidentiality of Alcohol and Drug Abuse Patient Records regulations: The Federal rules restrict any use of the information to criminally investigate or prosecute any alcohol or drug abuse patient.[facility] HospitalIn the event this information is protected by the Federal Confidentiality of Alcohol and Drug Abuse Patient Records regulations: The Federal rules restrict any use of the information to criminally investigate or prosecute any alcohol or drug abuse patient.[facility] HospitalIn the event this information is protected by the Federal Confidentiality of Alcohol and Drug Abuse Patient Records regulations: The Federal rules restrict any use of the information to criminally investigate or prosecute any alcohol or drug abuse patient.[facility] HospitalIn the event this information is protected by the Federal Confidentiality of Alcohol and Drug Abuse Patient Records regulations: The Federal rules restrict any use of the information to criminally investigate or prosecute any alcohol or drug abuse patient.[facility] HospitalIn the event this information is protected by the Federal Confidentiality of Alcohol and Drug Abuse Patient Records regulations: The Federal rules restrict any use of the information to criminally investigate or prosecute any alcohol or drug abuse patient.[facility] HospitalIn the event this information is protected by the Federal Confidentiality of Alcohol and Drug Abuse Patient Records regulations: The Federal rules restrict any use of the information to criminally investigate or prosecute any alcohol or drug abuse patient.[facility] HospitalIn the event this information is protected by the Federal Confidentiality of Alcohol and Drug Abuse Patient Records regulations: The Federal rules restrict any use of the information to criminally investigate or prosecute any alcohol or drug abuse patient.[facility] HospitalIn the event this information is protected by the Federal Confidentiality of Alcohol and Drug Abuse Patient Records regulations: The Federal rules restrict any use of the information to criminally investigate or prosecute any alcohol or drug abuse patient.[facility] HospitalIn the event this information is protected by the Federal Confidentiality of Alcohol and Drug Abuse Patient Records regulations: The Federal rules restrict any use of the information to criminally investigate or prosecute any alcohol or drug abuse patient.[facility] HospitalIn the event this information is protected by the Federal Confidentiality of Alcohol and Drug Abuse Patient Records regulations: The Federal rules restrict any use of the information to criminally investigate or prosecute any alcohol or drug abuse patient.[facility] HospitalIn the event this information is protected by the Federal Confidentiality of Alcohol and Drug Abuse Patient Records regulations: The Federal rules restrict any use of the information to criminally investigate or prosecute any alcohol or drug abuse patient.[facility] HospitalIn the event this information is protected by the Federal Confidentiality of Alcohol and Drug Abuse Patient Records regulations: The Federal rules restrict any use of the information to criminally investigate or prosecute any alcohol or drug abuse patient.[facility] HospitalIn the event this information is protected by the Federal Confidentiality of Alcohol and Drug Abuse Patient Records regulations: The Federal rules restrict any use of the information to criminally investigate or prosecute any alcohol or drug abuse patient.[facility] HospitalIn the event this information is protected by the Federal Confidentiality of Alcohol and Drug Abuse Patient Records regulations: The Federal rules restrict any use of the information to criminally investigate or prosecute any alcohol or drug abuse patient.[facility] HospitalIn the event this information is protected by the Federal Confidentiality of Alcohol and Drug Abuse Patient Records regulations: The Federal rules restrict any use of the information to criminally investigate or prosecute any alcohol or drug abuse patient.[facility] HospitalIn the event this information is protected by the Federal Confidentiality of Alcohol and Drug Abuse Patient Records regulations: The Federal rules restrict any use of the information to criminally investigate or prosecute any alcohol or drug abuse patient.[facility] HospitalIn the event this information is protected by the Federal Confidentiality of Alcohol and Drug Abuse Patient Records regulations: The Federal rules restrict any use of the information to criminally investigate or prosecute any alcohol or drug abuse patient.[facility] HospitalIn the event this information is protected by the Federal Confidentiality of Alcohol and Drug Abuse Patient Records regulations: The Federal rules restrict any use of the information to criminally investigate or prosecute any alcohol or drug abuse patient.[facility] HospitalIn the event this information is protected by the Federal Confidentiality of Alcohol and Drug Abuse Patient Records regulations: The Federal rules restrict any use of the information to criminally investigate or prosecute any alcohol or drug abuse patient.[facility] FOR RECORDS PERTAINING TO PATIENTS WHO [...] ON THE PRIMARY CLINICAL RECORDS. [facility] [employer] [facility]. provides no warranty or guarantee of the accuracy or completeness of information in this document.
== END 2024-05-26 11:12 | disposition home or self-care (01) ==
LOC: MRI 05-31 11:12
PROVIDERS: PCP Family Medicine; Visit Provider Radiology Radiation Oncology
DX: C61 Malignant neoplasm of prostate (principal)
CPT/HCPCS: 36415; 82565

== ENCOUNTER 2024-08-05 09:02 | Outpatient (REF) | payer MEDICARE, OTHER, SELFPAY ==
--- OUTSIDE RECORDS SUMMARY | 2024-08-04 08:14 | XMS_ITS | CCD ---
Author Organization [facility] Care Team Providers Care Associate Of Science In Nursing Name Role Phone ELTAHAWChristy, EHAB A Admitting Unavailable JANELL HUFFAB A Attending Unavailable ALEK FATIMA Primary Care Unavailable ALEK FATIMA Referring Unavailable Unavailable Primary Care Provider Alek Masterson MD Primary Care Provider [phone] ALEK FATIMA Primary Care Unavailable CARYL ACEVEDO Admitting Unavailable CARYL ACEVEDO Attending Unavailable [facility] Unavailable CARYL ACEVEDO Referring [...] Consulting Unavailable Alek Fatima Primary Care Physician [phone] MD Cesia Weeks Attending Provider [phone] Unavailable Primary Care Provider MD Alek Masterson Primary Care Provider [phone] Cesia WEEKS Attending Unavailable Cesia WEEKS Attending Unavailable Cesia WEEKS Attending Unavailable Alek Fatima Referring Unavailable Cesia Weeks Admitting Unavailable Cesia Weeks Attending Unavailable Cesia Weeks Attending Unavailable Alek Fatima Primary Care Unavailable Cesia Weeks Admsheila Unavailable Alek Fatima MD Primary Care Provider [phone] AIMEE CLEMENT Attending Unavailable ADRIANA HUFF Attending Unavailable Alek Fatima MD Primary Care Provider [phone] VIRAL PLATA Attending Unavailable VIRAL PLATA Attending Unavailable Unavailable Primary Care Provider UnavailArnulfo Velásquez Referring Unavailable HOY, ALEK M Primary Care Unavailable HOY, ALEK M Primary Care Unavailable HOY, ALEK M Primary Care Unavailable Arnulfo KAMARA Attending Unavailable HOY, ALEK M Primary Care Unavailable JOHN HUMPHREYS Attending Unavailabl ROXANA Davis Referring Unavailable HOY, ALEK M Primary Care Unavailable HOY, ALEK M Primary Care Unavailable HOY, ALEK M Primary Care Unavailable HOY, ALEK M Primary Care Unavailable Arnulfo KAMARA Attending Unavailable HOY, ALEK M Primary Care Unavailable HOY, ALEK M Primary Care Unavailable HOY, ALEK M Primary Care Unavailable HOY, ALEK M Primary Care Unavailable HOY, ALEK M Primary Care Unavailable HOY, ALEK M Primary Care Unavailable HOY, ALEK M Primary Care Unavailable HOY, ALEK M Primary Care Unavailable HOY, ALEK M Primary Care Unavailable ROXANA BAH Admitting Unavailable ROXANA BAH Attending Unavailable HOY, ALEK M Primary Care Unavailable ROXANA BAH Referring Unavailable HOY, ALEK M Primary Care Unavailable ROXANA BAH Referring Unavailable HOY, ALEK M Primary Care Unavailable Arnulfo KAMARA Attending Unavailable HOY, ALEK M Primary Care Unavailable Arnulfo KAMARA Attending Unavailable HOY, ALEK M Primary Care Unavailable Arnulfo KAMARA Attending Unavailable HOY, ALEK M Primary Care Unavailable HOY, ALEK M Primary Care Unavailable HOY, ALEK M Primary Care Unavailable Arnulfo KAMARA Referring Unavailable HOY, ALEK M Primary Care Unavailable Arnulfo KAMARA Attending Unavailable HOY, ALEK M Primary Care Unavailable HOY, ALEK M Primary Care Unavailable HOY, ALEK M Primary Care Unavailable HOY, ALEK M Primary Care Unavailable HOY, ALEK M Primary Care Unavailable HOY, ALEK M Primary Care Unavailable HOY, ALEK M Primary Care Unavailable Arnulfo KAMARA Attending Unavailable HOY, ALEK M Primary Care Unavailable HOY, ALEK M Primary Care Unavailable KATRINA WARNER Attending Unavailable HOY, ALEK M Primary Care Unavailable HOY, ALEK M Primary Care Unavailable MIL CRUM Attending Unavailable HOY, ALEK M Primary Care Unavailable HOY, ALEK M Primary Care Unavailable HOY, ALEK M Primary Care Unavailable HOY, ALEK M Primary Care Unavailable HOY, ALEK M Primary Care Unavailable Arnulfo KAMARA Attending Unavailable HOY, ALEK M Primary Care Unavailable Arnulfo KAMARA Attending Unavailable HOY, ALEK M Primary Care Unavailable HOY, ALEK M Primary Care Unavailable LUCAS, KATRINA Attending Unavailable HOY, ALEK M Primary Care Unavailable HOY, ALEK M Primary Care Unavailable ROXANA BAH Referring Unavailable HOY, ALEK M Primary Care Unavailable Arnulfo KAMARA Attending Unavailable WARMINSKI, KATRINA Referring Unavailable HOY, ALEK M Primary Care Unavailable HOY, ALEK M Primary Care Unavailable HOY, ALEK M Primary Care Unavailable HOY, ALEK M Primary Care Unavailable Arnulfo KAMARA Attending Unavailable Arnulfo KAMARA Referring Unavailable HOY, ALEK M Primary Care Unavailable HOY, ALEK M Primary Care Unavailable HOY, ALEK M Primary Care Unavailable HOY, ALEK M Primary Care Unavailable HOY, ALEK M Primary Care Unavailable HOY, ALEK M Primary Care Unavailable Arnulfo KAMARA Referring Unavailable HOY, ALEK M Primary Care Unavailable HOY, ALEK M Primary Care Unavailable Arnulfo KAMARA Attending Unavailable HOY, ALEK M Primary Care Unavailable WARMINSKI, KATRINA Attending Unavailable HOY, ALEK M Primary Care Unavailable HOY, ALEK M Primary Care Unavailable Arnulfo KAMARA Attending Unavailable HOY, ALEK M Primary Care Unavailable ROXANA BAH Referring Unavailable HOY, ALEK M Primary Care Unavailable ROXANA BAH Referring Unavailable HOY, ALEK M Primary Care Unavailable ROXANA BAH Referring Unavailable HOY, ALEK M Primary Care Unavailable ROXANA BAH Referring Unavailable HOY, ALEK M Primary Care Unavailable ROXANA BAH Attending Unavailable CESIA WEEKS Referring Unavailable Allergies Allergy Classification Reported Allergen(s) Allergy Type Date of Onset Reaction(s) Facility Unclassified (1 source) ; Translations: [] Propensity to adverse reactions (disorder) 9 [facility] Repository (1 source) No Known Medication Allergies; Translations: [No Known Medication Allergies] Propensity to adverse reactions (disorder) [facility] Repository (20 sources) Ciprofloxacin; Translations: [CIPROFLOXACIN] Drug Allergy 4 Hives [facility] Work Phone: Medications Current Medications Medication Drug Class(es) Dates Sig (Normalized) Sig (Original) 30 ACTUAT fluticasone furoate 0.05 MG/ACTUAT / vilanterol 0.025 MG/ACTUAT Dry Powder Inhaler (3 sources) Start: 08-10-2023 take 1 puff(s) by inhalation once daily fluticasone-vilant deep 50 mcg-25 mcg/inh. inhalation powder puff(s), Inhalation, [...] Comment on above: Take 2 tablets by [facility] every 8 hours as needed for pain for up to 40 doses. albuterol 0.83 mg/ml inhalation solution (3 sources) beta2-Adrenergic Agonist albuterol (2.5 MG/3ML) 0.083% nebulizer solution Active 10 ml aminophylline 25 mg/ml injection (4 [...] Comment on above: Take 1 tablet by [facility] two times a day for 7 days. bicalutamide 50 mg oral tablet (17 sources) Androgen Receptor Inhibitor Start: 10-02-2023 End: 11-18-2023 take 1 tablet by mouth once daily bicalutamide (Casodex) 50 MG chemo tablet Take 50 mg by mouth Daily. 10/10/2023 Active Comment on above: Take 1 tablet by [facility] once daily. carvedilol 25 mg oral tablet (20 sources) alpha-Adrenergic José Miguel, beta-Adrenergic José Miguel Start: 07-09-2023 take 1 tablet by mouth at bedtime carvedilol (COREG) 25 mg tablet TAKE 1 TABLET BY MOUTH IN THE MORNING AND AT BEDTIME 07/09/2023 Active Comment on above: TAKE 1 TABLET BY [facility] IN THE MORNING AND AT BEDTIME ciprofloxacin 500 mg oral tablet (1 source) Quinolone Antimicrobial Start: 08-10-2023 End: 08-17-2023 Cipro 500 mg Tab 500 mg = 1 tab(s), Oral, BID, start 3 days prior to procedure, X 7 day(s), # 14 tab(s), Refills(s) 0, Pharmacy: [id number], [phone], cm, 08/10/23 11:30:00 EST, Height/Length Dosing, 88.5, kg, 08/10/23 11:30:00 EST, Weight Dosing Start Date: 08/10/23 Stop Date: 08/17/23 Status: Ordered 24 hr dilTIAZem hydrochloride 120 mg extended release oral capsule (20 sources) Calcium Channel José Miguel Start: 07-12-2023 take 1 capsule by mouth once daily dilTIAZem CD (CARDIZEM CD, CARTIA XT) 120 mg 24 hr capsule TAKE 1 CAPSULE BY MOUTH ONCE DAILY DIRECTED 07/12/2023 Active take 1 capsule by [facility] at bedtime, then take 1 capsule by mouth every twenty-four hours dilTIAZem CD (CARDIZEM CD) 120 mg 24 hr capsule Take 120 mg by mouth at bedtime. 0 Suspended Comment on above: TAKE 1 CAPSULE BY [facility] ONCE DAILY DIRECTED DilTIAZem (Eqv-Cardizem CD) 120 mg/24 hours oral capsule, extended release (3 sources) Start: 08-10-2023 DilTIAZem (Eqv-Cardizem CD) 120 mg/24 hours oral capsule, extended release Refills(s) 0 Start Date: 08/10/23 Status: Ordered fluorouracil 50 mg/ml topical cream (2 sources) Nucleoside Metabolic Inhibitor Start: 04-20-2024 fluorouracil (Efudex) 5 % cream Indications: Actinic keratosis Apply to directed areas on the temples, forehead, and nose twice a day x 14 days. Dispense 30 day supply but only use for 14 days. 40 g 04/20/2024 Active fluticasone propionate 0.05 mg/actuat metered dose nasal spray (20 sources) Corticosteroid fluticasone (GRETTA NASE) 50 mcg/actuation nasal spray 1 [place]. Active fluticasone (Gretta nase) 50 MCG/ACT nasal spray 1 spray Active take 1 spray(s) nasal route twic e daily fluticasone propionate (Flonase Allergy Relief) 50 mcg/actuation nasal spray Administer 1 spray into each nostril 2 (two) times a day. Shake gently. Before first use, prime pump. After use, clean tip and replace cap. 0 Suspended Comment on above: 1 [place]. iv contrast (will be provided with radiology [...] guidelines link. 1 Each 05/19/2024 05/20/2024 Active levoFLOXacin 750 mg oral tablet (3 sources) Quinolone Antimicrobial levoFLOXacin (Levaquin) 750 MG tablet Active lisinopril 10 mg oral tablet (20 [...] in NaCl (PF) 0.9% 10 mL [facility] pravastatin sodium 40 mg oral tablet (20 sources) HMG-CoA Reductase Inhibitor Start: 07-09-20 take 1 tablet by mouth once daily at bedtime pravastatin (PRAVACHOL) 40 mg tablet Take 40 mg by mouth daily at bedtime. 07/09/2023 Active Comment on above: Take 40 mg by mouth daily at bedtime. regadenoson 0.4 mg injection (LEXISCAN) (4 sources) Start: 11-05-19 End: 11-13-19 regadenoson 0.4 mg injection (LEXISCAN) relugolix (ORGOVYX) 120 mg tablet (17 sources) Start: 06-06-20 take 1 tablet by mouth once daily relugolix (ORGOVYX) 120 mg tablet Take 1 tablet by mouth once daily. 30 tablet 5 06/06/2024 Active sacubitril 24 mg / valsartan 26 mg oral tablet (4 sources) Angiotensin 2 Receptor José Miguel take 1 tablet by mouth in the morning sacubitril-valsartan (Entresto) 24-26 MG tablet Take 1 tablet by mouth in the morning and 1 tablet in the evening. Active take 1 tablet by mouth twice fernando ly sacubitriL-valsartan (ENTRESTO) 24-26 mg per tablet Take 1 tablet by mouth 2 (two) times a day. 0 Suspended 125 ml sodium chloride 9 mg/ml prefilled syringe (4 sources) Start: 11-05-2023 End: 11-13-2023 sodium chloride 0.9 % (flush) 10 mL (BD POSIFLUSH) tadalafil 5 mg oral tablet (20 sources) Phosphodiesterase 5 Inhibitor Start: 11-18-2023 End: 05-17-2024 take 1 tablet by mouth once daily Tadalafil (CIALIS) 5 mg tablet Take 1 tablet by mouth once daily. 90 tablet 1 05/17/2024 Active Comment on above: Take 1 tablet by mouth once daily. warfarin sodium 6 mg oral tablet (20 sources) Vitamin K Antagonist Start: 07-17-2023 take 1 tablet by mouth once warfarin (COUMADIN) 6 mg tablet Take 1 tablet by mouth every afternoon. 07/17/2023 Active take 1 tablet by mouth at bedtim e warfarin (COUMADIN) 6 mg tablet Take 6 mg by mouth at bedtime. 0 Suspended Comment on above: Take 1 tablet by [facility] every afternoon. Completed/Discontinued Medications Medication Drug Class(es) Dates Sig (Normalized) Sig (Original) aspirin 81 mg delayed release oral tablet (20 sources) Platelet Aggregation Inhibitor, Nonsteroidal Anti-inflammatory Drug [...] of candidiasis. Do not swallow. 0 Suspended cephalexin 500 mg oral capsule (7 sources) Cephalosporin Antibacterial Start: 2023 End: 2023 take 1 capsule by mouth twice daily cephALEXin (KEFLEX) 500 mg capsule Take 1 capsule by mouth two times a day. 4 capsule 11/12/2023 04/28/2024 Discontinued (Course of therapy completed) Comment on above: Take 1 capsule by [facility] two times a day. docusate sodium 100 mg oral capsule (6 sources) Start: 2023 End: 2023 take 1 capsule by mouth twice daily docusate sodium (COLACE) 100 mg capsule Take 1 capsule by mouth two times a day. 60 capsule 0 11/06/2023 11/18/2023 Discontinued (Course of therapy completed) Comment on above: Take 1 capsule by [facility] two times a day. 0.375 ml leuprolide acetate 60 mg/ml prefilled syringe (1 source) Gonadotropin Releasing Hormone Receptor Agonist Start: 2023 End: 2023 inject 1 dose by subcutaneous injection once 22.5 mg, SUBCUTANEOUS, ONCE, 1 dose, On Thu06/06/24 at 1600, Hazardous Chemotherapy Drug: Use appropriate PPE. 24 hr oxybutynin chloride 5 mg extended release oral tablet (6 sources) Cholinergic Muscarinic Antagonist Start: 2023 End: 2023 oxybutynin XL (DITROPAN XL) 5 mg 24 hr tablet Take 1 tablet by mouth once daily as needed (bladder spasms) for up to 6 days. Please stop taking at least ONE DAY prior to padgett removal 6 tablet 0 11/06/2023 11/18/2023 Discontinued (Course of therapy completed) Comment on above: Take 1 tablet by [facility] once daily as needed (bladder spasms) for up to 6 days. Please stop taking at least ONE DAY prior to padgett removal tamsulosin hydrochloride 0.4 mg oral capsule (20 sources) alpha-Adrenergic José Miguel Start: 2023 End: 2023 take 1 capsule by mouth once tamsulosin (FLOMAX) 0.4 mg Take 1 capsule by mouth every afternoon. 0 09/08/2023 11/18/2023 Discontinued (Course of therapy completed) Comment on above: Take 1 capsule by [facility] every afternoon. Problems Active Problems Problem Classification [...] of prostate] Onset: 08-31-2023 Chronic Cardiac dysrhythmias (20 sources) Unspecified atrial fibrillation; [...] Translations: [Stress incontinence (female) (male)] 11-18-2023 Chronic Genitourinary symptoms and ill-defined conditions (1 source) Dysuria; Translations: [Dysuria] 07-21-2024 Episodic Hyperplasia of prostate (20 sources) Benign prostatic [...] Translations: [Longstanding persistent atrial fibrillation] Onset: 12-29-2023 Unclassified (1 source) Radiotherapy On-treatment Visit Onset: 07-04-2024 Past or Other Problems Problem Classification Problem Date Documented Date Episodic/Chronic Cancer of prostate (7 sources) History of malignant neoplasm of prostate; Translations: [Personal history of malignant neoplasm of prostate] Onset: 04-28-2024 12-30-2023 Episodic Other male genital disorders (1 source) Disorder of prostate, unspecified; Translations: [Prostate disease] Onset: 11-03-2023 Episodic Other nervous system disorders (1 source) Other acute postprocedural pain; Translations: [Post-op pain] Onset: 11-05-2023 Episodic Other skin disorders (2 sources) Actinic keratosis; Translations: [Actinic keratosis] 04-20-2024 Episodic Results Test Name Value Interpretation Reference Range Facility OV 08-01-2024 CNOV Normal [facility] CNOVon 07-25-2024 CNOV Normal [facility] CNPNon 07-21-2024 CNPN Normal [facility] CNOVon 07-19-2024 CNOV Normal [facility] CNOVon 07-11-2024 CNOV Normal [facility] CNOVon 07-04-2024 CNOV Normal [facility] CNOVon 06-27-2024 CNOV Normal [facility] CBC W Auto Differential pane l (Bld)on 06-23-2024 Basophils (Bld) [#/Vol] 0.05 10*3/uL NINF [facility] Basophils/100 WBC (Bld) 0.7 % [facility] Differential cell count method Nom (Bld) Auto [facility] Eosinophils (Bld) [#/Vol] 0.11 10*3/uL [facility] Eosinophils/100 WBC (Bld) 1.6 % [facility] Erythrocyte distribution width (RBC) [Ratio] 14.7 % 11.5 - 15.0 % [facility] Hematocrit (Bld) [Volume fraction] 39.4 % 39.0 - 51.0 % [facility] Hemoglobin (Bld) [Mass/Vol] 13.3 g/dL 13.0 - 17.0 g/dL [facility] Immature granulocytes (Bld) [#/Vol] 0.05 10*3/uL [facility] Immature granulocytes/100 WBC (Bld) 0.7 % [facility] Interpretation and review of laboratory results Abnormal [facility] Lymphocytes (Bld) [#/Vol] 0.92 10*3/uL Low [facility] Lymphocytes/100 WBC (Bld) 13.1 % [facility] MCH (RBC) [Entitic mass] 30.0 pg 26.0 - 34.0 pg [facility] MCHC (RBC) [Mass/Vol] 33.8 g/dL 30.5 - 36.0 g/dL [facility] MCV (RBC) [Entitic vol] 88.7 fL 80.0 - 100.0 fL [facility] Monocytes (Bld) [#/Vol] 0.85 10*3/uL [facility] Monocytes/100 WBC (Bld) 12.1 % [facility] Neutrophils (Bld) [#/Vol] 5.02 10*3/uL [facility] Neutrophils/100 WBC (Bld) 71.8 % [facility] Nucleated RBC (Bld) [#/Vol] [facility] Nucleated RBC/100 WBC (Bld) [Ratio] 0.0 % /100 WBC [facility] Platelet mean volume (Bld) [Entitic vol] 8.2 fL Low 9.0 - 12.7 fL [facility] Platelets (Bld) [#/Vol] 300 10*3/uL [facility] RBC (Bld) [#/Vol] 4.44 10*6/uL 4.20 - 6.0 0 m/uL [facility] WBC (Bld) [#/Vol] 7.00 10*3/uL [facility] Basophils (Bld) [#/Vol] 0.05 10*3/uL Normal <0.11 [facility] Comment on above: Order Comment: Speci men Type: BLOOD SPECIMENOrdering Facility: [facility] Address: [address] [place] [address] Performed By: #### 5 7021-8 ####[facility] LABCLIA [id number] [place] [address] Basophils/100 WBC (Bld) 0.7 % Normal [facility] Comment on above: Order Comment: Speci men Type: BLOOD SPECIMENOrdering Facility: [facility] Address: [address] [place] [address] Performed By: #### 5 7021-8 ####[facility] LABCLIA [id number] [place] [address] Differential cell count method Nom (Bld) Auto Normal [facility] Comment on above: Order Comment: Speci men Type: BLOOD SPECIMENOrdering Facility: [facility] Address: [address] [place] [address] Performed By: #### 5 7021-8 ####[facility] LABCLIA [id number] [place] [address] Eosinophils (Bld) [#/Vol] 0.11 10*3/uL Normal <0.46 [facility] Comment on above: Order Comment: Speci men Type: BLOOD SPECIMENOrdering Facility: [facility] Address: [address] [place] [address] Performed By: #### 5 7021-8 ####[facility] LABCLIA [id number] [place] [address] Eosinophils/100 WBC (Bld) 1.6 % Normal [facility] Comment on above: Order Comment: Speci men Type: BLOOD SPECIMENOrdering Facility: [facility] Address: [address] [place] [address] Performed By: #### 5 7021-8 ####[facility] LABCLIA [id number] [place] [address] Erythrocyte distribution width (RBC) [Ratio] 14.7 % Normal 11.5-15.0 [facility] Comment on above: Order Comment: Speci men Type: BLOOD SPECIMENOrdering Facility: [facility] Address: [address] [place] [address] Performed By: #### 5 7021-8 ####[facility] LABCLIA [id number] [place] [address] Hematocrit (Bld) [Volume fraction] 39.4 % Normal 39.0-51.0 [facility] Comment on above: Order Comment: Speci men Type: BLOOD SPECIMENOrdering Facility: [facility] Address: [address] [place] [address] Performed By: #### 5 7021-8 ####[facility] LABCLIA [id number] [place] [address] Hemoglobin (Bld) [Mass/Vol] 13.3 g/dL Normal 13.0-17.0 [facility] Comment on above: Order Comment: Speci men Type: BLOOD SPECIMENOrdering Facility: [facility] Address: [address] [place] [address] Performed By: #### 5 7021-8 ####[facility] LABCLIA [id number] [place] [address] Immature granulocytes (Bld) [#/Vol] 0.05 10*3/uL Normal <0.10 [facility] Comment on above: Order Comment: Speci men Type: BLOOD SPECIMENOrdering Facility: [facility] Address: [address] [place] [address] Performed By: #### 5 7021-8 ####[facility] LABCLIA [id number] [place] [address] Immature granulocytes/100 WBC (Bld) 0.7 % Normal [facility] Comment on above: Order Comment: Speci men Type: BLOOD SPECIMENOrdering Facility: [facility] Address: [address] [place] [address] Performed By: #### 5 7021-8 ####[facility] LABCLIA [id number] [place] [address] Lymphocytes (Bld) [#/Vol] 0.92 10*3/uL Low 1.00-4.00 [facility] Comment on above: Order Comment: Speci men Type: BLOOD SPECIMENOrdering Facility: [facility] Address: [address] [place] [address] Performed By: #### 5 7021-8 ####[facility] LABCLIA [id number] [place] [address] Lymphocytes/100 WBC (Bld) 13.1 % Normal [facility] Comment on above: Order Comment: Speci men Type: BLOOD SPECIMENOrdering Facility: [facility] Address: [address] [place] [address] Performed By: #### 5 7021-8 ####[facility] LABCLIA [id number] [place] [address] MCH (RBC) [Entitic mass] 30.0 pg Normal 26.0-34.0 [facility] Comment on above: Order Comment: Speci men Type: BLOOD SPECIMENOrdering Facility: [facility] Address: [address] [place] [address] Performed By: #### 5 7021-8 ####[facility] LABCLIA [id number] [place] [address] MCHC (RBC) [Mass/Vol] 33.8 g/dL Normal 30.5-36.0 [facility] Comment on above: Order Comment: Speci men Type: BLOOD SPECIMENOrdering Facility: [facility] Address: [address] [place] [address] Performed By: #### 5 7021-8 ####[facility] LABCLIA [id number] [place] [address] MCV (RBC) [Entitic vol] 88.7 fL Normal 80.0-100.0 [facility] Comment on above: Order Comment: Speci men Type: BLOOD SPECIMENOrdering Facility: [facility] Address: [address] [place] [address] Performed By: #### 5 7021-8 ####[facility] LABCLIA [id number] [place] [address] Monocytes (Bld) [#/Vol] 0.85 10*3/uL Normal <0.87 [facility] Comment on above: Order Comment: Speci men Type: BLOOD SPECIMENOrdering Facility: [facility] Address: [address] [place] [address] Performed By: #### 5 7021-8 ####[facility] LABCLIA [id number] [place] [address] Monocytes/100 WBC (Bld) 12.1 % Normal [facility] Comment on above: Order Comment: Speci men Type: BLOOD SPECIMENOrdering Facility: [facility] Address: [address] [place] [address] Performed By: #### 5 7021-8 ####[facility] LABCLIA [id number] [place] [address] Neutrophils (Bld) [#/Vol] 5.02 10*3/uL Normal 1.45-7.50 [facility] Comment on above: Order Comment: Speci men Type: BLOOD SPECIMENOrdering Facility: [facility] Address: [address] [place] [address] Performed By: #### 5 7021-8 ####[facility] LABCLIA [id number] [place] [address] Neutrophils/100 WBC (Bld) 71.8 % Normal [facility] Comment on above: Order Comment: Speci men Type: BLOOD SPECIMENOrdering Facility: [facility] Address: [address] [place] [address] Performed By: #### 5 7021-8 ####[facility] LABCLIA [id number] [place] [address] Nucleated RBC (Bld) [#/Vol] 10*3/uL Normal <0.01 [facility] Comment on above: Order Comment: Speci men Type: BLOOD SPECIMENOrdering Facility: [facility] Address: [address] [place] [address] Performed By: #### 5 7021-8 ####[facility] LABCLIA [id number] [place] [address] Nucleated RBC/100 WBC (Bld) [Ratio] 0.0 /100 WBC Normal [facility] Comment on above: Order Comment: Speci men Type: BLOOD SPECIMENOrdering Facility: [facility] Address: [address] [place] [address] Performed By: #### 5 7021-8 ####[facility] LABCLIA [id number] [place] [address] Platelet mean volume (Bld) [Entitic vol] 8.2 fL Low 9.0-12.7 [facility] Comment on above: Order Comment: Speci men Type: BLOOD SPECIMENOrdering Facility: [facility] Address: [address] [place] [address] Performed By: #### 5 7021-8 ####[facility] LABCLIA [id number] [place] [address] Platelets (Bld) [#/Vol] 300 10*3/uL Normal 150-400 [facility] Comment on above: Order Comment: Speci men Type: BLOOD SPECIMENOrdering Facility: [facility] Address: [address] [place] [address] Performed By: #### 5 7021-8 ####[facility] LABCLIA [id number] [place] [address] RBC (Bld) [#/Vol] 4.44 10*6/uL Normal 4.20-6.00 [facility] Comment on above: Order Comment: Speci men Type: BLOOD SPECIMENOrdering Facility: [facility] Address: [address] [place] [address] Performed By: #### 5 7021-8 ####[facility] LABIA [id number] [place] [address] WBC (Bld) [#/Vol] 7.00 10*3/uL Normal 3.70-11.00 [facility] Comment on above: Order Comment: Speci men Type: BLOOD SPECIMENOrdering Facility: [facility] Address: [address] [place] [address] Performed By: #### 5 7021-8 ####[facility] LABIA [id number] [place] [address] CNOVon 06-23-2024 CNOV Normal [facility] CNOVon 06-20-2024 CNOV Normal [facility] CNOVon 06-15-2024 CNOV Normal [facility] CNPNon 06-13-2024 CNPN Normal [facility] CNPNon 06-07-2024 CNPN Normal [facility] CNOVon 06-06-2024 CNOV Normal [facility] CNPNon 05-23-2024 CNPN Normal [facility] CNPNon 05-20-2024 CNPN Normal [facility] CNOVon 05-19-2024 CNOV Normal [facility] NM PET/CT PROSTATE WBon 05-03 NM PET/CT PROSTATE WB Normal [facility] CNCNPATEDon 04-28-2024 CNCNPATED Normal [facility] CNOVon 04-28-2024 CNOV Normal [facility] CNPNon 04-28-2024 CNPN Normal [facility] PSA SerPl-mCncon 04-26-2024 Prostate specific Ag [Mass/Vol] 0.18 ng/mL Normal <2.60 [facility] Comment on above: Order Comment: Speci men Type: BLOOD SPECIMENOrdering Facility: [facility] Address: [address] [place] [address] Result Comment: Tota l PSA test methodology used is the Electrochemiluminescence Immunoassay by [employer]. Total PSA values by differing methodologies cannot be interchanged. Performed By: #### 2 857-1 ####[facility] LABCLIA [id number] [place] [address] [place] PSA SerPl-mCncon 03-31-2024 Prostate specific Ag [Mass/Vol] 0.12 ng/mL Normal <2.60 [facility] Comment on above: Order Comment: Speci men Type: BLOOD SPECIMENOrdering Facility: [facility] Address: [address] [place] [address] Result Comment: Tota l PSA test methodology used is the Electrochemiluminescence Immunoassay by [employer]. Total PSA values by differing methodologies cannot be interchanged. Performed By: #### 2 857-1 ####[facility] LABIA [id number] [address] [place] Office Visiton 12-29-2023 Follow-up visit [id number] Sukhdeep Gamino 1960 M Date Provider Department Center 12/29/2023 [id number]-KASSANDRATANENITA, ADRIANA CARD [facility] No family history on file Level of Service:90056 [place] OFFICE/OUTPATIENT ESTABLISHED LOW MDM 20 MIN Normal [facility] Orders Onlyon 12-25-2023 Orders Only [id number] Sukhdeep Gamino 1960 M Date Provider Department Center 12/25/2023 [id number], HISTORICAL BH CARD [facility] No family history on file Normal [facility] PSA SerPl-mCncon 12-25-2023 Prostate specific Ag [Mass/Vol] 0.03 ng/mL Normal <2.60 [facility] Comment on above: Order Comment: Speci men Type: BLOOD SPECIMENOrdering Facility: [facility] Address: [address] [place] [address] Result Comment: Tota l PSA test methodology used is the Electrochemiluminescence Immunoassay by [employer]. Total PSA values by differing methodologies cannot be interchanged. Performed By: #### 2 857-1 ####[facility] LABCLIA [id number] [address] [address] [place] CNPNon 11-16-2023 CNPN Normal [facility] CNPNon 11-12-2023 CNPN Normal [facility] CNPNon 11-10-2023 CNPN Normal [facility] Basic metabolic 2000 panelon 11-06-2023 Anion gap [Moles/Vol] 12 mmol/L Normal 9-18 [facility] Comment on above: Order Comment: Speci men Type: BLOOD SPECIMENOrdering Facility: [facility] Address: [address] [place] [address] Performed By: #### 2 4321-2, , 2776-08 ####[facility] LABIA [id number] [place] [address] [place] Calcium [Mass/Vol] 8.8 mg/dL Normal 8.5-10.2 [facility] Comment on above: Order Comment: Speci men Type: BLOOD SPECIMENOrdering Facility: [facility] Address: [address] [place] [address] Performed By: #### 2 4321-2, , 2776-08 ####[facility] LABIA [id number] [place] [address] [place] Chloride [Moles/Vol] 103 mmol/L Normal 97-105 [facility] Comment on above: Order Comment: Speci men Type: BLOOD SPECIMENOrdering Facility: [facility] Address: [address] [place] [address] Performed By: #### 2 4321-2, , 2776-08 ####[facility] LABCLIA [id number] [place] [id number] [place] CO2 [Moles/Vol] 21 mmol/L Low 22-30 [facility] Comment on above: Order Comment: Speci men Type: BLOOD SPECIMENOrdering Facility: [facility] Address: [address] [place] [address] Performed By: #### 2 4321-2, , 2776-08 ####[facility] LABIA [id number] [place] [id number] [place] Creatinine [Mass/Vol] 1.23 mg/dL High 0.73-1.22 [facility] Comment on above: Order Comment: Speci men Type: BLOOD SPECIMENOrdering Facility: [facility] Address: [address] [place] [address] Performed By: #### 2 4321-2, , 2776-08 ####[facility] [id number] [place] [address] [place] Creatinine and Glomerular filtration rate.predicted panel (S/P/Bld) 66 mL/min/1.73m??? Normal >=60 [facility] Comment on above: Order Comment: Penelope men Type: BLOOD SPECIMENOrdering Facility: [facility] Address: [address] [place] [address] Result Comment: Jamila mated Glomerular Filtration Rate [...] actual GFR. Performed By: #### 2 4321-2, , 2776-08 ####[facility] LABIA [id number] [place] [id number] [place] Glucose [Mass/Vol] 190 mg/dL High 74-99 [facility] Comment on above: Order Comment: Penelope men Type: BLOOD SPECIMENOrdering Facility: [facility] Address: [address] [place] [address] Result Comment: The [place] [employer] (ADA) provides guidance for cutoff values for fasting glucose and random glucose. The ADA defines fasting as no caloric intake for at least 8 hours. Fasting plasma glucose results between 100 to 125 mg/dL indicate increased risk for diabetes (prediabetes).Fasting plasma glucose results greater than or equal to 126 mg/dL meet the criteria for diagnosis of diabetes. In the absence of unequivocal hyperglycemia, results should be confirmed by repeat testing. In a patient with classic symptoms of hyperglycemia or hyperglycemic crisis, random plasma glucose results greater than or equal to 200 mg/dL meet the criteria for diagnosis of diabetes.Reference: Standards of Medical Care in Diabetes 2016, [place] [employer]. Diabetes Care. 2016.39(Suppl 1). Performed By: #### 2 4321-2, , 2776-08 ####[facility] LABIA [id number] [place] [address] [place] Potassium [Moles/Vol] 4.4 mmol/L Normal 3.7-5.1 [facility] Comment on above: Order Comment: Speci men Type: BLOOD SPECIMENOrdering Facility: [facility] Address: [address] [place] [address] Performed By: #### 2 2, , 2776-08 ####[facility] [id number] [place] [address] [place] Sodium [Moles/Vol] 136 mmol/L Normal 136-144 [facility] Comment on above: Order Comment: Speci men Type: BLOOD SPECIMENOrdering Facility: [facility] Address: [address] [place] [address] Performed By: #### 2 432-2, , 2776-08 ####[facility] LABIA [id number] [place] [address] [place] Urea nitrogen [Mass/Vol] 19 mg/dL Normal 9-24 [facility] Comment on above: Order Comment: Speci men Type: BLOOD SPECIMENOrdering Facility: [facility] Address: [address] [place] [address] Performed By: #### 2 432-2, , 2777-1 ####[facility] LABCLIA [id number] [place] [address] [place] CBC W Auto Differential pane l (Bld)on 11-06-2023 Basophils (Bld) [#/Vol] 10*3/uL Normal <0.11 [facility] Comment on above: Order Comment: Speci men Type: BLOOD SPECIMENOrdering Facility: [facility] Address: [address] [place] [address] Performed By: #### 5 7021-8 ####[facility] LABCLIA [id number] [place] [address] [place] Basophils/100 WBC (Bld) 0.1 % Normal [facility] Comment on above: Order Comment: Speci men Type: BLOOD SPECIMENOrdering Facility: [facility] Address: [address] [place] [address] Performed By: #### 5 7021-8 ####[facility] LABCLIA [id number] [place] [address] [place] Differential cell count method Nom (Bld) Auto Normal [facility] Comment on above: Order Comment: Speci men Type: BLOOD SPECIMENOrdering Facility: [facility] Address: [address] [place] [address] Performed By: #### 5 7021-8 ####[facility] LABCLIA [id number] [place] [address] [place] Eosinophils (Bld) [#/Vol] 10*3/uL Normal <0.46 [facility] Comment on above: Order Comment: Speci men Type: BLOOD SPECIMENOrdering Facility: [facility] Address: [address] [place] [address] Performed By: #### 5 7021-8 ####[facility] LABCLIA [id number] [place] [address] [place] Eosinophils/100 WBC (Bld) 0.0 % Normal [facility] Comment on above: Order Comment: Speci men Type: BLOOD SPECIMENOrdering Facility: [facility] Address: [address] [place] [address] Performed By: #### 5 7021-8 ####[facility] LABCLIA [id number] [place] [address] [place] Erythrocyte distribution width (RBC) [Ratio] 13.1 % Normal 11.5-15.0 [facility] Comment on above: Order Comment: Speci men Type: BLOOD SPECIMENOrdering Facility: [facility] Address: [address] [place] [address] Performed By: #### 5 7021-8 ####[facility] LABIA [id number] [place] [address] [place] Hematocrit (Bld) [Volume fraction] 34.5 % Low 39.0-51.0 [facility] Comment on above: Order Comment: Speci men Type: BLOOD SPECIMENOrdering Facility: [facility] Address: [address] [place] [address] Performed By: #### 5 7021-8 ####[facility] LABIA [id number] [place] [address] [place] Hemoglobin (Bld) [Mass/Vol] 11.7 g/dL Low 13.0-17.0 [facility] Comment on above: Order Comment: Speci men Type: BLOOD SPECIMENOrdering Facility: [facility] Address: [address] [place] [address] Performed By: #### 5 7021-8 ####[facility] LABIA [id number] [place] [address] [place] Immature granulocytes (Bld) [#/Vol] 0.04 10*3/uL Normal <0.10 [facility] Comment on above: Order Comment: Speci men Type: BLOOD SPECIMENOrdering Facility: [facility] Address: [address] [place] [address] Performed By: #### 5 7021-8 ####[facility] LABCLIA [id number] [place] [address] [place] Immature granulocytes/100 WBC (Bld) 0.5 % Normal [facility] Comment on above: Order Comment: Speci men Type: BLOOD SPECIMENOrdering Facility: [facility] Address: [address] [place] [address] Performed By: #### 5 7021-8 ####[facility] LABCLIA [id number] [place] [address] [place] Lymphocytes (Bld) [#/Vol] 0.59 10*3/uL Low 1.00-4.00 [facility] Comment on above: Order Comment: Speci men Type: BLOOD SPECIMENOrdering Facility: [facility] Address: [address] [place] [address] Performed By: #### 5 7021-8 ####[facility] LABCLIA [id number] [place] [address] [place] Lymphocytes/100 WBC (Bld) 7.3 % Normal [facility] Comment on above: Order Comment: Speci men Type: BLOOD SPECIMENOrdering Facility: [facility] Address: [address] [place] [address] Performed By: #### 5 7021-8 ####[facility] LABCLIA [id number] [place] [address] [place] MCH (RBC) [Entitic mass] 30.0 pg Normal 26.0-34.0 [facility] Comment on above: Order Comment: Speci men Type: BLOOD SPECIMENOrdering Facility: [facility] Address: [address] [place] [address] Performed By: #### 5 7021-8 ####[facility] LABCLIA [id number] [place] [address] [place] MCHC (RBC) [Mass/Vol] 33.9 g/dL Normal 30.5-36.0 [facility] Comment on above: Order Comment: Speci men Type: BLOOD SPECIMENOrdering Facility: [facility] Address: [address] [place] [address] Performed By: #### 5 7021-8 ####[facility] LABCLIA [id number] [place] [address] [place] MCV (RBC) [Entitic vol] 88.5 fL Normal 80.0-100.0 [facility] Comment on above: Order Comment: Speci men Type: BLOOD SPECIMENOrdering Facility: [facility] Address: [address] [place] [address] Performed By: #### 5 7021-8 ####[facility] LABCLIA [id number] [place] [address] [place] Monocytes (Bld) [#/Vol] 0.56 10*3/uL Normal <0.87 [facility] Comment on above: Order Comment: Speci men Type: BLOOD SPECIMENOrdering Facility: [facility] Address: [address] [place] [address] Performed By: #### 5 7021-8 ####[facility] LABCLIA [id number] [place] [address] [place] Monocytes/100 WBC (Bld) 6.9 % Normal [facility] Comment on above: Order Comment: Speci men Type: BLOOD SPECIMENOrdering Facility: [facility] Address: [address] [place] [address] Performed By: #### 5 7021-8 ####[facility] LABCLIA [id number] [place] [address] [place] Neutrophils (Bld) [#/Vol] 6.87 10*3/uL Normal 1.45-7.50 [facility] Comment on above: Order Comment: Speci men Type: BLOOD SPECIMENOrdering Facility: [facility] Address: [address] [place] [address] Performed By: #### 5 7021-8 ####[facility] LABIA [id number] [place] [address] [place] Neutrophils/100 WBC (Bld) 85.2 % Normal [facility] Comment on above: Order Comment: Speci men Type: BLOOD SPECIMENOrdering Facility: [facility] Address: [address] [place] [address] Performed By: #### 5 7021-8 ####[facility] LABIA [id number] [place] [address] [place] Nucleated RBC (Bld) [#/Vol] 10*3/uL Normal <0.01 [facility] Comment on above: Order Comment: Speci men Type: BLOOD SPECIMENOrdering Facility: [facility] Address: [address] [place] [address] Performed By: #### 5 7021-8 ####[facility] LABIA [id number] [place] [address] [place] Nucleated RBC/100 WBC (Bld) [Ratio] 0.0 /100 WBC Normal [facility] Comment on above: Order Comment: Speci men Type: BLOOD SPECIMENOrdering Facility: [facility] Address: [address] [place] [address] Performed By: #### 5 7021-8 ####[facility] LABIA [id number] [place] [address] [place] Platelet mean volume (Bld) [Entitic vol] 8.2 fL Low 9.0-12.7 [facility] Comment on above: Order Comment: Speci men Type: BLOOD SPECIMENOrdering Facility: [facility] Address: [address] [place] [address] Performed By: #### 5 7021-8 ####[facility] LABIA [id number] [place] [address] [place] Platelets (Bld) [#/Vol] 238 10*3/uL Normal 150-400 [facility] Comment on above: Order Comment: Speci men Type: BLOOD SPECIMENOrdering Facility: [facility] Address: [address] [place] [address] Performed By: #### 5 7021-8 ####[facility] LABCLIA [id number] [place] [address] [place] RBC (Bld) [#/Vol] 3.90 10*6/uL Low 4.20-6.00 [facility] Comment on above: Order Comment: Speci men Type: BLOOD SPECIMENOrdering Facility: [facility] Address: [address] [place] [address] Performed By: #### 5 7021-8 ####[facility] LABCLIA [id number] [place] [address] [place] WBC (Bld) [#/Vol] 8.07 10*3/uL Normal 3.70-11.00 [facility] Comment on above: Order Comment: Speci men Type: BLOOD SPECIMENOrdering Facility: [facility] Address: [address] [place] [address] Performed By: #### 5 7021-8 ####[facility] LABCLIA [id number] [place] [address] [place] CNDSon 11-06-2023 CNDS Normal [facility] ECG COMPLETEon 11-06-2023 ECG COMPLETE Normal [facility] Magnesium SerPl-mCncon 11-05 Magnesium [Mass/Vol] 2.1 mg/dL Normal 1.7-2.3 [facility] Comment on above: Order Comment: Speci men Type: BLOOD SPECIMENOrdering Facility: [facility] Address: [address] [place] [address] Performed By: #### 2 4321-2, 93703-8, 2777-1 ####[facility] LABCLIA [id number] [place] [id number] [place] NURSING PROGon 11-06-2023 NURSING PROG Normal [facility] Phosphate SerPl-mCncon 11-05 Phosphate [Mass/Vol] 2.3 mg/dL Low 2.7-4.8 [facility] Comment on above: Order Comment: Speci men Type: BLOOD SPECIMENOrdering Facility: [facility] Address: [address] [place] [address] Performed By: #### 2 4321-2, 04079-1, 2777-1 ####[facility] LABCLIA [id number] [place] [address] [place] ANES POSTPROC EVALon 024 ANES POSTPROC EVAL Normal [facility] ANES PRE-OPon 11-05-2023 ANES PRE-OP Normal [facility] BRIEF OP NOTon 11-05-2023 BRIEF OP NOT Normal [facility] Basic metabolic 2000 panelon 11-05-2023 Anion gap [Moles/Vol] 12 mmol/L Normal 9-18 [facility] Comment on above: Order Comment: Speci men Type: BLOOD SPECIMENOrdering Facility: [facility] Address: [address] [place] [address] Performed By: #### 2 4321-2 ####[facility] LABCLIA [id number] [place] [address] [place] Calcium [Mass/Vol] 8.5 mg/dL Normal 8.5-10.2 [facility] Comment on above: Order Comment: Speci men Type: BLOOD SPECIMENOrdering Facility: [facility] Address: [address] [place] [address] Performed By: #### 2 4321-2 ####[facility] LABCLIA [id number] [place] [id number] [place] Chloride [Moles/Vol] 106 mmol/L High 97-105 [facility] Comment on above: Order Comment: Speci men Type: BLOOD SPECIMENOrdering Facility: [facility] Address: [address] [place] [address] Performed By: #### 2 4321-2 ####[facility] LABCLIA [id number] [place] [address] [place] CO2 [Moles/Vol] 21 mmol/L Low 22-30 [facility] Comment on above: Order Comment: Speci men Type: BLOOD SPECIMENOrdering Facility: [facility] Address: [address] [place] [address] Performed By: #### 2 4321-2 ####[facility] LABIA [id number] [address] [place] Creatinine [Mass/Vol] 1.29 mg/dL High 0.73-1.22 [facility] Comment on above: Order Comment: Speci men Type: BLOOD SPECIMENOrdering Facility: [facility] Address: [address] [place] [address] Performed By: #### 2 4321-2 ####[facility] LABIA [id number] [address] OF [facility] Creatinine and Glomerular filtration rate.predicted panel (S/P/Bld) 62 mL/min/1.73m??? Normal >=60 [facility] Comment on above: Order Comment: Speci men Type: BLOOD SPECIMENOrdering Facility: [facility] Address: [address] [place] [address] Result Comment: Jamila mated Glomerular Filtration Rate [...] actual GFR. Performed By: #### 2 4321-2 ####[facility] LABCLIA [id number] [place] [address] [place] Glucose [Mass/Vol] 134 mg/dL High 74-99 [facility] Comment on above: Order Comment: Speci men Type: BLOOD SPECIMENOrdering Facility: [facility] Address: [address] [place] [address] Result Comment: The [place] [employer] (ADA) provides guidance for cutoff values for fasting glucose and random glucose. The ADA defines fasting as no caloric intake for at least 8 hours. Fasting plasma glucose results between 100 to 125 mg/dL indicate increased risk for diabetes (prediabetes).Fasting plasma glucose results greater than or equal to 126 mg/dL meet the criteria for diagnosis of diabetes. In the absence of unequivocal hyperglycemia, results should be confirmed by repeat testing. In a patient with classic symptoms of hyperglycemia or hyperglycemic crisis, random plasma glucose results greater than or equal to 200 mg/dL meet the criteria for diagnosis of diabetes.Reference: Standards of Medical Care in Diabetes 2016, [place] [employer]. Diabetes Care. 2016.39(Suppl 1). Performed By: #### 2 4321-2 ####[facility] LABCLIA [id number] [place] [address] [place] Potassium [Moles/Vol] 4.6 mmol/L Normal 3.7-5.1 [facility] Comment on above: Order Comment: Speci men Type: BLOOD SPECIMENOrdering Facility: [facility] Address: [address] [place] [address] Performed By: #### 2 4321-2 ####[facility] LABIA [id number] [place] [address] [place] Sodium [Moles/Vol] 139 mmol/L Normal 136-144 [facility] Comment on above: Order Comment: Speci men Type: BLOOD SPECIMENOrdering Facility: [facility] Address: [address] [place], [place] [address] Performed By: #### 2 4321-2 ####[facility] LABIA [id number] [place] [address] [place] Urea nitrogen [Mass/Vol] 25 mg/dL High 9-24 [facility] Comment on above: Order Comment: Speci men Type: BLOOD SPECIMENOrdering Facility: [facility] Address: [address] [place] [address] Performed By: #### 2 4321-2 ####[facility] LABCLIA [id number] [place] [address] [place] CBC W Auto Differential pane l (Bld)on 11-05-2023 Basophils (Bld) [#/Vol] 0.03 10*3/uL Normal <0.11 [facility] Comment on above: Order Comment: Speci men Type: BLOOD SPECIMENOrdering Facility: [facility] Address: [address] [place] [address] Performed By: #### 5 7021-8 ####[facility] LABCLIA [id number] [place] [address] [place] Basophils/100 WBC (Bld) 0.3 % Normal [facility] Comment on above: Order Comment: Speci men Type: BLOOD SPECIMENOrdering Facility: [facility] Address: [address] [place] [address] Performed By: #### 5 7021-8 ####[facility] LABCLIA [id number] [place] [address] [place] Differential cell count method Nom (Bld) Auto Normal [facility] Comment on above: Order Comment: Speci men Type: BLOOD SPECIMENOrdering Facility: [facility] Address: [address] [place], [place] [address] Performed By: #### 5 7021-8 ####[facility] LABCLIA [id number] [place] [address] [place] Eosinophils (Bld) [#/Vol] 10*3/uL Normal <0.46 [facility] Comment on above: Order Comment: Speci men Type: BLOOD SPECIMENOrdering Facility: [facility] Address: [address] [place] [address] Performed By: #### 5 7021-8 ####[facility] LABCLIA [id number] [place] [address] [place] Eosinophils/100 WBC (Bld) 0.2 % Normal [facility] Comment on above: Order Comment: Speci men Type: BLOOD SPECIMENOrdering Facility: [facility] Address: [address] [place] [address] Performed By: #### 5 7021-8 ####[facility] LABIA [id number] [place] [address] [place] Erythrocyte distribution width (RBC) [Ratio] 13.1 % Normal 11.5-15.0 [facility] Comment on above: Order Comment: Speci men Type: BLOOD SPECIMENOrdering Facility: [facility] Address: [address] [place] [address] Performed By: #### 5 7021-8 ####[facility] LABIA [id number] [place] [address] [place] Hematocrit (Bld) [Volume fraction] 34.0 % Low 39.0-51.0 [facility] Comment on above: Order Comment: Speci men Type: BLOOD SPECIMENOrdering Facility: [facility] Address: [address] [place] [address] Performed By: #### 5 7021-8 ####[facility] LABIA [id number] [place] [address] [place] Hemoglobin (Bld) [Mass/Vol] 11.6 g/dL Low 13.0-17.0 [facility] Comment on above: Order Comment: Speci men Type: BLOOD SPECIMENOrdering Facility: [facility] Address: [address] [place] [address] Performed By: #### 5 7021-8 ####[facility] LABIA [id number] [place] [id number] [place] Immature granulocytes (Bld) [#/Vol] 0.06 10*3/uL Normal <0.10 [facility] Comment on above: Order Comment: Speci men Type: BLOOD SPECIMENOrdering Facility: [facility] Address: [address] [place] [address] Performed By: #### 5 7021-8 ####[facility] LABCLIA [id number] [place] [address] [place] Immature granulocytes/100 WBC (Bld) 0.7 % Normal [facility] Comment on above: Order Comment: Speci men Type: BLOOD SPECIMENOrdering Facility: [facility] Address: [address] [place] [address] Performed By: #### 5 7021-8 ####[facility] LABCLIA [id number] [place] [address] [place] Lymphocytes (Bld) [#/Vol] 0.39 10*3/uL Low 1.00-4.00 [facility] Comment on above: Order Comment: Speci men Type: BLOOD SPECIMENOrdering Facility: [facility] Address: [address] [place] [address] Performed By: #### 5 7021-8 ####[facility] LABCLIA [id number] [place] [address] [place] Lymphocytes/100 WBC (Bld) 4.4 % Normal [facility] Comment on above: Order Comment: Speci men Type: BLOOD SPECIMENOrdering Facility: [facility] Address: [address] [place] [address] Performed By: #### 5 7021-8 ####[facility] LABCLIA [id number] [place] [address] [place] MCH (RBC) [Entitic mass] 30.5 pg Normal 26.0-34.0 [facility] Comment on above: Order Comment: Speci men Type: BLOOD SPECIMENOrdering Facility: [facility] Address: [address] [place] [address] Performed By: #### 5 7021-8 ####[facility] LABCLIA [id number] [place] [address] [place] MCHC (RBC) [Mass/Vol] 34.1 g/dL Normal 30.5-36.0 [facility] Comment on above: Order Comment: Speci men Type: BLOOD SPECIMENOrdering Facility: [facility] Address: [address] [place] [address] Performed By: #### 5 7021-8 ####[facility] LABIA [id number] [place] [address] [place] MCV (RBC) [Entitic vol] 89.5 fL Normal 80.0-100.0 [facility] Comment on above: Order Comment: Speci men Type: BLOOD SPECIMENOrdering Facility: [facility] Address: [address] [place] [address] Performed By: #### 5 7021-8 ####[facility] LABIA [id number] [place] [address] [place] Monocytes (Bld) [#/Vol] 0.26 10*3/uL Normal <0.87 [facility] Comment on above: Order Comment: Speci men Type: BLOOD SPECIMENOrdering Facility: [facility] Address: [address] [place] [address] Performed By: #### 5 7021-8 ####[facility] LABCLIA [id number] [place] [address] [place] Monocytes/100 WBC (Bld) 2.9 % Normal [facility] Comment on above: Order Comment: Speci men Type: BLOOD SPECIMENOrdering Facility: [facility] Address: [address] [place] [address] Performed By: #### 5 7021-8 ####[facility] LABCLIA [id number] [place] [address] [place] Neutrophils (Bld) [#/Vol] 8.13 10*3/uL High 1.45-7.50 [facility] Comment on above: Order Comment: Speci men Type: BLOOD SPECIMENOrdering Facility: [facility] Address: [address] [place] [address] Performed By: #### 5 7021-8 ####[facility] LABCLIA [id number] [place] [address] [place] Neutrophils/100 WBC (Bld) 91.5 % Normal [facility] Comment on above: Order Comment: Speci men Type: BLOOD SPECIMENOrdering Facility: [facility] Address: [address] [place] [address] Performed By: #### 5 7021-8 ####[facility] LABCLIA [id number] [place] [address] [place] Nucleated RBC (Bld) [#/Vol] 10*3/uL Normal <0.01 [facility] Comment on above: Order Comment: Speci men Type: BLOOD SPECIMENOrdering Facility: [facility] Address: [address] [place] [address] Performed By: #### 5 7021-8 ####[facility] LABCLIA [id number] [place] [address] [place] Nucleated RBC/100 WBC (Bld) [Ratio] 0.0 /100 WBC Normal [facility] Comment on above: Order Comment: Speci men Type: BLOOD SPECIMENOrdering Facility: [facility] Address: [address] [place] [address] Performed By: #### 5 7021-8 ####[facility] LABCLIA [id number] [place] [address] [place] Platelet mean volume (Bld) [Entitic vol] 8.0 fL Low 9.0-12.7 [facility] Comment on above: Order Comment: Speci men Type: BLOOD SPECIMENOrdering Facility: [facility] Address: [address] [place] [address] Performed By: #### 5 7021-8 ####[facility] LABIA [id number] [place] [address] [place] Platelets (Bld) [#/Vol] 240 10*3/uL Normal 150-400 [facility] Comment on above: Order Comment: Speci men Type: BLOOD SPECIMENOrdering Facility: [facility] Address: [address] [place] [address] Performed By: #### 5 7021-8 ####[facility] LABIA [id number] [place] [address] [place] RBC (Bld) [#/Vol] 3.80 10*6/uL Low 4.20-6.00 [facility] Comment on above: Order Comment: Speci men Type: BLOOD SPECIMENOrdering Facility: [facility] Address: [address] [place] [address] Performed By: #### 5 7021-8 ####[facility] LABIA [id number] [place] [address] [place] WBC (Bld) [#/Vol] 8.89 10*3/uL Normal 3.70-11.00 [facility] Comment on above: Order Comment: Speci men Type: BLOOD SPECIMENOrdering Facility: [facility] Address: [address] [place] [address] Performed By: #### 5 7021-8 ####[facility] LABIA [id number] [place] [address] [place] NURSING PROGon 11-05-2023 NURSING PROG Normal [facility] OPERATIVE NOon 11-05-2023 OPERATIVE NO Normal [facility] SURGICAL PATHOLOGYon 024 BLOCK FOR ADDITIONAL BIOMARKERS/MOLECULA R STUDIES A20 Normal [facility] Comment on above: Order Comment: Speci men Type: TISSUE SPECIMENOrdering Facility: [facility] Address: [address] [place] [address] Performed By: #### S ####[facility] LABIA [id number] [place] [address] [place] CASE REPORT Normal [facility] Comment on above: Order Comment: Speci men Type: TISSUE SPECIMENOrdering Facility: [facility] Address: [address] [place] [address] Result Comment: Surg [facility] Pathology Report Case: [id number] Provider: Roxana Bah MD Collected: 11/05/2023 05:35 PMOrdering Location: Admitting Received: 11/05/2023 06:13 PMPathologist: Eldon Watkins MDSpecimens: A) - PROSTATE RADICAL PROSTATECTOMY, Prostate and seminal vesicles B) - LYMPH NODE, Bilateral pelvic lymph nodes Performed By: #### S ####[facility] LABIA [id number] [place] [address] [place] CLINICAL HISTORY Normal [facility] Comment on above: Order Comment: Speci men Type: TISSUE SPECIMENOrdering Facility: [facility] Address: [address] [place] [address] Result Comment: Pre- op diagnosis:Malignant neoplasm of prostate (HCC) [C61] Performed By: #### S ####[facility] [id number] [address] [place] FINAL DIAGNOSIS Normal [facility] Comment on above: Order Comment: Speci men Type: TISSUE SPECIMENOrdering Facility: [facility] Address: [address] [place] [address] Result Comment: John meza, radical prostatectomy:- Prostatic adenocarcinoma, [place] score 4+4=8 with tertiary pattern 5, Grade Group 4, with extraprostatic extension of neoplasm.- Margins of excision are free of neoplasm.A. Seminal vesicles, right and left, excision:- Negative for neoplasm.B. Bilateral pelvic lymph nodes, excision:- Negative for neoplasm, twenty-three lymph nodes.Radical Prostatectomy Morphology SummaryUnfavorable histology: Present (Greater than 50%)Large cribriform pattern 4: PresentIntraductal carcinoma: AbsentJLM/kr 11/10/2023 Performed By: #### S ####[facility] LABCLIA [id number] [address] [place] FINAL PERFORMING LAB Normal [facility] Comment on above: Order Comment: Speci men Type: TISSUE SPECIMENOrdering Facility: [facility] Address: [address] [place] [address] Result Comment: Diag nostic interpretation performed at [facility], [address] [place] [address] CLIA# [id number] Director: Gerry Wilson M.D. Performed By: #### S ####[facility] LABCLIA [id number] [address] STATES OF [facility] GROSS DESCRIPTION Normal [facility] Comment on above: Order Comment: Speci men Type: TISSUE SPECIMENOrdering Facility: [facility] Address: [address] [place] [address] Result Comment: A. P ROSTATE RADICAL PROSTATECTOMYReceived in formalin, labeled prostate radical prostatectomy is [...] reveal a mass lesion. Rubbery nodularity is present.The seminal vesicles are unremarkable. Segments of vas deferens are unremarkable.Set Designer sections are submitted as follows:A1. Right apical margin, perpendicularA2. Left apical margin, perpendicularA3. Right basal margin, perpendicularA4. Left basal margin, perpendicularA5. 3mm rightA6. 3mm leftA7. 6mm rightA8. 6mm leftA9. 9mm right ypwpqczkE21. 9mm left dsjhcmdrY22. 9mm right qaqdzarspY53. 9mm left gjgyrisepE68. 12mm right bsvaopdxqU11. 12mm left quqlvxeibN09. 15mm right hbspzjtuU15. 15mm left pmiretvmF71. 15mm right hvbbvsogyF79. 15mm left oybvbsidmO78. 18mm right dttjtoyevF88. 18mm left zljggtulnM90. 21mm right cxzefzseK64. 21mm left ulachmidH87. 21 mm right swdfqqntmT52. 21 mm left posterior, clqliehkR17. Right seminal vesicle baseA26. Left seminal vesicle baseB. LYMPH NODEReceived in formalin labeled lymph node-bilateral pelvic lymph nodes are multiple fragments of fibroadipose tissue aggregating to 6.7 x 5.4 x 1.8 cm. Multiple possible lymph nodes ranging in size from 0.2 to 1.1 cm are identified. Sections are submitted as follows:B1-3. Multiple possible lymph nodes per cassette, intactB5-6. Set Designer fibroadipose tissueGross examination performed at [facility], [address] [place] [address] CLIA# [id number] 11/06/23 1:56 PM Performed By: #### S ####[facility] LABCLIA [id number] [place] [address] [place] SYNOPTIC REPORT Normal [facility] Comment on above: Order Comment: Speci men Type: TISSUE SPECIMENOrdering Facility: [facility] Address: [address] [place] [address] Result Comment: PROS CAMPOS GLAND: Radical ProstatectomyPROSTATE GLAND: RESECTION - All Yuqmyltpc2qj Edition - Protocol posted: 04/22/2023SPECIMEN Procedure: Radical prostatectomy Prostate Size: Prostate Weight (Grams): 38.35 g Prostate Greatest Dimension (Centimeters): 5.2 cm Additional Prostate Dimension (Centimeters): 5.1 cm Additional Prostate Dimension (Centimeters): 3.5 cmTUMOR Histologic Type: Acinar adenocarcinoma, conventional (usual) Histologic Grade: Grade: Grade group 4 ([place] Score 4 + 4 = 8) Intraductal Carcinoma (IDC): Not identified Cribriform Glands: Present Treatment Effect: Not identified TUMOR QUANTITATION: Estimated Percentage of Prostate Involved by Tumor: 21 - 30% Extraprostatic Extension (EPE): Present, nonfocal Location of Extraprostatic Extension: Left posterior Urinary Bladder Neck Invasion: Not identified Seminal Vesicle Invasion: Not identified Lymphatic and / or Vascular Invasion: Not IdentifiedMARGINS Margin Status: All margins negative for invasive carcinomaREGIONAL LYMPH NODES Regional Lymph Node Status: : All regional lymph nodes negative for tumor Number of Lymph Nodes Examined: 23pTNM CLASSIFICATION (AJCC 8th Edition) Reporting of pT, [...] pN Category: pN0 Performed By: #### S ####[facility] LABCLIA [id number] [place] [address] [place] CBC panel Auto (Bld)on 11-02 Erythrocyte distribution width (RBC) [Ratio] 13.2 % Normal 11.5-15.0 [facility] Comment on above: Order Comment: Speci men Type: BLOOD SPECIMENOrdering Facility: [facility] Address: [address] [place] [address] Performed By: #### 5 8410-2 ####[facility] LABCLIA [id number] [place] [address] [place] Hematocrit (Bld) [Volume fraction] 43.8 % Normal 39.0-51.0 [facility] Comment on above: Order Comment: Speci men Type: BLOOD SPECIMENOrdering Facility: [facility] Address: [address] [place] [address] Performed By: #### 5 8410-2 ####[facility] LABCLIA [id number] [place] [address] [place] Hemoglobin (Bld) [Mass/Vol] 14.3 g/dL Normal 13.0-17.0 [facility] Comment on above: Order Comment: Speci men Type: BLOOD SPECIMENOrdering Facility: [facility] Address: [address] [place] [address] Performed By: #### 5 8410-2 ####[facility] LABIA [id number] [place] [address] [place] MCH (RBC) [Entitic mass] 30.0 pg Normal 26.0-34.0 [facility] Comment on above: Order Comment: Speci men Type: BLOOD SPECIMENOrdering Facility: [facility] Address: [address] [place] [address] Performed By: #### 5 8410-2 ####[facility] [id number] [place] [address] [place] MCHC (RBC) [Mass/Vol] 32.6 g/dL Normal 30.5-36.0 [facility] Comment on above: Order Comment: Speci men Type: BLOOD SPECIMENOrdering Facility: [facility] Address: [address] [place] [address] Performed By: #### 5 8410-2 ####[facility] [id number] [place] [address] [place] MCV (RBC) [Entitic vol] 92.0 fL Normal 80.0-100.0 [facility] Comment on above: Order Comment: Speci men Type: BLOOD SPECIMENOrdering Facility: [facility] Address: [address] [place] [address] Performed By: #### 5 8410-2 ####[facility] [id number] [place] [address] [place] Nucleated RBC (Bld) [#/Vol] 10*3/uL Normal <0.01 [facility] Comment on above: Order Comment: Speci men Type: BLOOD SPECIMENOrdering Facility: [facility] Address: [address] [place] [address] Performed By: #### 5 8410-2 ####[facility] LABCLIA [id number] [place] [address] [place] Platelet mean volume (Bld) [Entitic vol] 8.4 fL Low 9.0-12.7 [facility] Comment on above: Order Comment: Speci men Type: BLOOD SPECIMENOrdering Facility: [facility] Address: [address] [place] [address] Performed By: #### 5 8410-2 ####[facility] LABCLIA [id number] [place] [address] [place] Platelets (Bld) [#/Vol] 338 10*3/uL Normal 150-400 [facility] Comment on above: Order Comment: Speci men Type: BLOOD SPECIMENOrdering Facility: [facility] Address: [address] [place] [address] Performed By: #### 5 8410-2 ####[facility] LABCLIA [id number] [place] [address] [place] RBC (Bld) [#/Vol] 4.76 10*6/uL Normal 4.20-6.00 [facility] Comment on above: Order Comment: Speci men Type: BLOOD SPECIMENOrdering Facility: [facility] Address: [address] [place] [address] Performed By: #### 5 8410-2 ####[facility] LABCLIA [id number] [place] [address] [place] WBC (Bld) [#/Vol] 9.85 10*3/uL Normal 3.70-11.00 [facility] Comment on above: Order Comment: Speci men Type: BLOOD SPECIMENOrdering Facility: [facility] Address: [address] [place] [address] Performed By: #### 5 8410-2 ####[facility] LABCLIA [id number] [place] [address] [place] CNOVon 11-03-2023 CNOV Normal [facility] CNPTOUTREACHon 11-03-2023 CNPTOUTREACH Normal [facility] CONFIRM BLOOD TYPEon 024 ABO A Normal [facility] Comment on above: Order Comment: Speci men Type: BLOOD SPECIMENOrdering Facility: [facility] Address: [address] [place] [address] Performed By: #### C ONABO ####[facility] BLOOD BANKIA [id number] [place] [address] [place] Rh Nom (Bld) Positive Normal [facility] Comment on above: Order Comment: Speci men Type: BLOOD SPECIMENOrdering Facility: [facility] Address: [address] [place] [address] Performed By: #### C ONABO ####[facility] BLOOD BANKIA [id number] [place] [address] [place] Comprehensive metabolic 2000 panelon 11-03-2023 Albumin [Mass/Vol] 4.5 g/dL Normal 3.9-4.9 [facility] Comment on above: Order Comment: Speci men Type: BLOOD SPECIMENOrdering Facility: [facility] Address: [address] [place] [address] Performed By: #### 2 4323-8 ####[facility] LABCLIA [id number] [place] [address] [place] ALP [Catalytic activity/Vol] 97 U/L Normal 38-113 [facility] Comment on above: Order Comment: Speci men Type: BLOOD SPECIMENOrdering Facility: [facility] Address: [address] [place], [place] [address] Performed By: #### 2 4323-8 ####[facility] LABCLIA [id number] [address] [address] [place] ALT [Catalytic activity/Vol] 19 U/L Normal 10-54 [facility] Comment on above: Order Comment: Speci men Type: BLOOD SPECIMENOrdering Facility: [facility] Address: [address] [place] [address] Performed By: #### 2 4323-8 ####[facility] LABCLIA [id number] [place] [address] [place] Anion gap [Moles/Vol] 12 mmol/L Normal 9-18 [facility] Comment on above: Order Comment: Speci men Type: BLOOD SPECIMENOrdering Facility: [facility] Address: [address] [place] [address] Performed By: #### 2 4323-8 ####[facility] LABCLIA [id number] [place] [address] [place] AST [Catalytic activity/Vol] 17 U/L Normal 14-40 [facility] Comment on above: Order Comment: Speci men Type: BLOOD SPECIMENOrdering Facility: [facility] Address: [address] [place] [address] Performed By: #### 2 4323-8 ####[facility] LABCLIA [id number] [place] [address] [place] Bilirubin [Mass/Vol] 0.8 mg/dL Normal 0.2-1.3 [facility] Comment on above: Order Comment: Speci men Type: BLOOD SPECIMENOrdering Facility: [facility] Address: [address] [place], [place] [address] Performed By: #### 2 4323-8 ####[facility] LABCLIA [id number] [place] [id number] [place] Calcium [Mass/Vol] 10.1 mg/dL Normal 8.5-10.2 [facility] Comment on above: Order Comment: Speci men Type: BLOOD SPECIMENOrdering Facility: [facility] Address: [address] [place] [address] Performed By: #### 2 4323-8 ####[facility] LABCLIA [id number] [place] [address] [place] Chloride [Moles/Vol] 104 mmol/L Normal 97-105 [facility] Comment on above: Order Comment: Speci men Type: BLOOD SPECIMENOrdering Facility: [facility] Address: [address] [place] [address] Performed By: #### 2 4323-8 ####[facility] LABCLIA [id number] [place] [address] [place] CO2 [Moles/Vol] 25 mmol/L Normal 22-30 [facility] Comment on above: Order Comment: Speci men Type: BLOOD SPECIMENOrdering Facility: [facility] Address: [address] [place] [address] Performed By: #### 2 4323-8 ####[facility] LABCLIA [id number] [place] [address] [place] Creatinine [Mass/Vol] 1.29 mg/dL High 0.73-1.22 [facility] Comment on above: Order Comment: Speci men Type: BLOOD SPECIMENOrdering Facility: [facility] Address: [address] [place] [address] Performed By: #### 2 4323-8 ####[facility] LABCLIA [id number] [place] [address] [place] Creatinine and Glomerular filtration rate.predicted panel (S/P/Bld) 62 mL/min/1.73m??? Normal >=60 [facility] Comment on above: Order Comment: Speci men Type: BLOOD SPECIMENOrdering Facility: [facility] Address: [address] [place] [address] Result Comment: Jamila mated Glomerular Filtration Rate [...] actual GFR. Performed By: #### 2 4323-8 ####[facility] LABCLIA [id number] [place] [address] [place] Glucose [Mass/Vol] 105 mg/dL High 74-99 [facility] Comment on above: Order Comment: Penelope taylor Type: BLOOD SPECIMENOrdering Facility: [facility] Address: [address] [place] [address] Result Comment: The [place] [employer] (ADA) provides guidance for cutoff values for fasting glucose and random glucose. The ADA defines fasting as no caloric intake for at least 8 hours. Fasting plasma glucose results between 100 to 125 mg/dL indicate increased risk for diabetes (prediabetes).Fasting plasma glucose results greater than or equal to 126 mg/dL meet the criteria for diagnosis of diabetes. In the absence of unequivocal hyperglycemia, results should be confirmed by repeat testing. In a patient with classic symptoms of hyperglycemia or hyperglycemic crisis, random plasma glucose results greater than or equal to 200 mg/dL meet the criteria for diagnosis of diabetes.Reference: Standards of Medical Care in Diabetes 2016, [place] [employer]. Diabetes Care. 2016.39(Suppl 1). Performed By: #### 2 4323-8 ####[facility] LABIA [id number] [place] [id number] [place] Potassium [Moles/Vol] 4.8 mmol/L Normal 3.7-5.1 [facility] Comment on above: Order Comment: Penelope taylor Type: BLOOD SPECIMENOrdering Facility: [facility] Address: [address] [place] [address] Performed By: #### 2 4323-8 ####[facility] LABIA [id number] [place] [id number] [place] Protein [Mass/Vol] 7.2 g/dL Normal 6.3-8.0 [facility] Comment on above: Order Comment: Speci men Type: BLOOD SPECIMENOrdering Facility: [facility] Address: [address] [place] [address] Performed By: #### 2 4323-8 ####[facility] LABCLIA [id number] [place] [address] [place] Sodium [Moles/Vol] 141 mmol/L Normal 136-144 [facility] Comment on above: Order Comment: Speci men Type: BLOOD SPECIMENOrdering Facility: [facility] Address: [address] [place] [address] Performed By: #### 2 4323-8 ####[facility] LABCLIA [id number] [place] [address] [place] Urea nitrogen [Mass/Vol] 25 mg/dL High 9-24 [facility] Comment on above: Order Comment: Speci men Type: BLOOD SPECIMENOrdering Facility: [facility] Address: [address] [place] [address] Performed By: #### 2 4323-8 ####[facility] LABCLIA [id number] [place] [address] [place] ECG COMPLETEon 11-03-2023 ECG COMPLETE Normal [facility] HISTORY PHYSICALon HISTORY PHYSICAL Normal [facility] NM CARDIAC PERF STRESS/PHARM on 11-03-2023 NM CARDIAC PERF STRESS/PHARM Normal [facility] NM Heart Perfusion W stress and W radionuclide Yogi 11-03-2023 [facility] PT panel Coag (PPP)on 2023 INR Coag (PPP) [Relative time] 1.3 {INR} Normal 0.9-1.3 [facility] Comment on above: Order Comment: Speci men Type: BLOOD SPECIMENOrdering Facility: [facility] Address: [address] [place] [address] Result Comment: Tiffani min K Antagonist (VKA) Therapeutic Range: INR 2 to 3 (Target INR of 2.5)Note: For patients treated with VKA drugs, such as warfarin, the [place] 2012 Guideline recommends a therapeutic INR range of 2 to 3 (target INR of 2.5). This recommendation includes high-risk patients with antiphospholipid syndrome with previous arterial or venous thromboembolism, current-generation mechanical or bioprosthetic aortic heart valve replacement.Note: Patients with mechanical aortic valve replacement and additional risk factors for thromboembolic events (atrial fibrillation, previous thromboembolism, LV dysfunction, hypercoagulable conditions) or an older generation mechanical AVR (i.e., ball in-Cage) or any mechanical MVR should have a INR therapeutic range of 2.5 to 3.5 (target INR of 3).Isaias GH, et al. Chest 2012, 141:7S-47SNishnicki RA, et al. [facility] 2017, 70: 252-289 Performed By: #### 3 4528-0, 42334-3 ####[facility] LABCLIA [id number] [place] [address] [place] PT Coag (PPP) [Time] 13.2 s High 9.7-13.0 [facility] Comment on above: Order Comment: Specraúl taylor Type: BLOOD SPECIMENOrdering Facility: [facility] Address: [address] [place] [address] Performed By: #### 3 4528-0, 38431-3 ####[facility] LABCLIA [id number] [address] [place] TYPE AND SCREEN,30 DAYon ABO A Normal [facility] Comment on above: Order Comment: Speci men Type: BLOOD SPECIMENOrdering Facility: [facility] Address: [address] [place] [address] Performed By: #### T [id number] ####[facility] BLOOD BANKCLIA [id number] [address] [place] HISTORICAL AB SCR STATUS Negative Normal [facility] Comment on above: Order Comment: Speci men Type: BLOOD SPECIMENOrdering Facility: [facility] Address: [address] [place] [address] Performed By: #### T [id number] ####[facility] BLOOD BANKCLIA [id number] [address] [place] Rh Nom (Bld) Positive Normal [facility] Comment on above: Order Comment: Speci men Type: BLOOD SPECIMENOrdering Facility: [facility] Address: [address] [place] [address] Performed By: #### T SCR30 ####[facility] BLOOD BANKIA [id number] [address] [place] URINALYSIS, REFLEX MICROSCOP ICon 11-03-2023 Bacteria LM.HPF (Urine sed) [#/Area] Negative Negative /HPF [facility] Bilirubin Ql (U) Negative Negative [facility] Clarity (Unsp spec) Clear Clear [facility] Color (U) Yellow Yellow [facility] Epithelial cells LM.HPF (Urine sed) [#/Area] None Seen [facility] Glucose Test strip (U) [Mass/Vol] Negative Negative [facility] Hemoglobin Ql (U) Negative Negative [facility] Hyaline casts (Urine sed) [#/Area] 1-3 /LPF Abnormal 0 /LPF [facility] Ketones Ql (U) Negative Negative [facility] Leukocyte esterase Test strip Ql (U) Trace Abnormal Negative [facility] Nitrite Ql (U) Negative Negative [facility] pH (U) 5.5 [pH] <8.5 [facility] Protein (U) [Mass/Vol] Negative Negative [facility] RBC LM.HPF (Urine sed) [#/Area] 0-2 /HPF 0-2 /HPF [facility] Specific gravity (U) [Rel density] 1.023 1.005 - 1.030 [facility] Urobilinogen Ql (U) 0.2 EU/dL 0.2-1.0 EU/dL [facility] WBC LM.HPF (Urine sed) [#/Area] 0-5 /HPF 0-5 /HPF [facility] Bacteria LM.HPF (Urine sed) [#/Area] Negative Normal Negative [facility] Comment on above: Order Comment: Speci men Type: URINE SPECIMENOrdering Facility: [facility] Address: [address] [place] [address] Performed By: #### L [id number] ####[facility] LABCLIA [id number] [place] [address] [place] Bilirubin Ql (U) Negative Normal Negative [facility] Comment on above: Order Comment: Speci men Type: URINE SPECIMENOrdering Facility: [facility] Address: [address] [place] [address] Performed By: #### L [id number] ####[facility] LABCLIA [id number] [place] [address] [place] Clarity (Unsp spec) Clear Normal Clear [facility] Comment on above: Order Comment: Speci men Type: URINE SPECIMENOrdering Facility: [facility] Address: [address] [place] [address] Performed By: #### L [id number] ####[facility] LABCLIA [id number] [place] [address] [place] Color (U) Yellow Normal Yellow [facility] Comment on above: Order Comment: Speci men Type: URINE SPECIMENOrdering Facility: [facility] Address: [address] [place] [address] Performed By: #### L [id number] ####[facility] LABCLIA [id number] [place] [address] [place] Epithelial cells LM.HPF (Urine sed) [#/Area] None Seen Normal [facility] Comment on above: Order Comment: Speci men Type: URINE SPECIMENOrdering Facility: [facility] Address: [address] [place] [address] Performed By: #### L [id number] ####[facility] LABCLIA [id number] [place] [address] [place] Glucose Test strip (U) [Mass/Vol] Negative Normal Negative [facility] Comment on above: Order Comment: Speci men Type: URINE SPECIMENOrdering Facility: [facility] Address: [address] [place] [address] Performed By: #### L [id number] ####[facility] LABCLIA [id number] [place] [address] [place] Hemoglobin Ql (U) Negative Normal Negative [facility] Comment on above: Order Comment: Speci men Type: URINE SPECIMENOrdering Facility: [facility] Address: [address] [place] [address] Performed By: #### L [id number] ####[facility] LABCLIA [id number] [place] [address] [place] Hyaline casts (Urine sed) [#/Area] 1-3 /LPF Abnormal 0 /LPF [facility] Comment on above: Order Comment: Speci men Type: URINE SPECIMENOrdering Facility: [facility] Address: [address] [place] [address] Performed By: #### L [id number] ####[facility] LABCLIA [id number] [place] [address] [place] Ketones Ql (U) Negative Normal Negative [facility] Comment on above: Order Comment: Speci men Type: URINE SPECIMENOrdering Facility: [facility] Address: [address] [place] [address] Performed By: #### L [id number] ####[facility] LABCLIA [id number] [place] [address] [place] Leukocyte esterase Test strip Ql (U) Trace Abnormal Negative [facility] Comment on above: Order Comment: Speci men Type: URINE SPECIMENOrdering Facility: [facility] Address: [address] [place] [address] Performed By: #### L [id number] ####[facility] LABCLIA [id number] [place] [address] [place] Nitrite Ql (U) Negative Normal Negative [facility] Comment on above: Order Comment: Speci men Type: URINE SPECIMENOrdering Facility: [facility] Address: [address] [place] [address] Performed By: #### L [id number] ####[facility] LABIA [id number] [place] [address] [place] pH (U) 5.5 [pH] Normal <8.5 [facility] Comment on above: Order Comment: Speci men Type: URINE SPECIMENOrdering Facility: [facility] Address: [address] [place] [address] Performed By: #### L [id number] ####[facility] LABIA [id number] [place] [address] [place] Protein (U) [Mass/Vol] Negative Normal Negative [facility] Comment on above: Order Comment: Speci men Type: URINE SPECIMENOrdering Facility: [facility] Address: [address] [place] [address] Performed By: #### L [id number] ####[facility] LABIA [id number] [place] [address] [place] RBC LM.HPF (Urine sed) [#/Area] 0-2 /HPF Normal 0-2 /HPF [facility] Comment on above: Order Comment: Speci men Type: URINE SPECIMENOrdering Facility: [facility] Address: [address] [place] [address] Performed By: #### L [id number] ####[facility] LABIA [id number] [place] [address] [place] Specific gravity (U) [Rel density] 1.023 Normal 1.005-1.030 [facility] Comment on above: Order Comment: Speci men Type: URINE SPECIMENOrdering Facility: [facility] Address: [address] [place] [address] Performed By: #### L [id number] ####[facility] LABIA [id number] [place] [address] [place] Urobilinogen Ql (U) 0.2 EU/dL Normal 0.2-1.0 EU/dL [facility] Comment on above: Order Comment: Speci men Type: URINE SPECIMENOrdering Facility: [facility] Address: [address] [place] [address] Performed By: #### L [id number] ####[facility] [id number] [place] [address] [place] WBC LM.HPF (Urine sed) [#/Area] 0-5 /HPF Normal 0-5 /HPF [facility] Comment on above: Order Comment: Speci men Type: URINE SPECIMENOrdering Facility: [facility] Address: [address] [place] [address] Performed By: #### L [id number] ####[facility] [id number] [place] [address] [place] aPTT PPPon 11-03-2023 aPTT Coag (PPP) [Time] 27.4 s Normal 23.0-32.4 [facility] Comment on above: Order Comment: Speci men Type: BLOOD SPECIMENOrdering Facility: [facility] Address: [address] [place] [address] Performed By: #### 3 4528-0, 45864-6 ####[facility] [id number] [place] [address] [place] CNOVon 10-02-2023 CNOV Normal [facility] CNPTOUTREACHon 10-02-2023 CNPTOUTREACH Normal [facility] URINALYSIS, REFLEX MICROSCOP ICon 10-02-2023 Bilirubin Ql (U) Negative Negative [facility] Clarity (Unsp spec) Clear Clear [facility] Color (U) Light Yellow Yellow [facility] Glucose Test strip (U) [Mass/Vol] Negative Trace, Negative [facility] Hemoglobin Ql (U) Negative Negative, Trace [facility] Ketones Ql (U) Negative Negative, Trace [facility] Leukocyte esterase Test strip Ql (U) Negative Negative, 25 Brandon/uL [facility] Nitrite Ql (U) Negative Negative [facility] pH (U) 5.0 [pH] 5.0 - 8.0 [facility] Protein (U) [Mass/Vol] Negative Trace, Negative [facility] Specific gravity (U) [Rel density] 1.027 1.005 - 1.030 [facility] Urobilinogen Ql (U) Normal Normal [facility] Bilirubin Ql (U) Negative Normal Negative [facility] Comment on above: Order Comment: Speci men Type: URINE SPECIMENOrdering Facility: [facility] Address: [address] [place] [address] Performed By: #### L [id number] ####[facility] LABCLIA [id number] [place] [address] [place] Clarity (Unsp spec) Clear Normal Clear [facility] Comment on above: Order Comment: Speci men Type: URINE SPECIMENOrdering Facility: [facility] Address: [address] [place] [address] Performed By: #### L [id number] ####[facility] LABCLIA [id number] [place] [address] [place] Color (U) Light Yellow Normal Yellow [facility] Comment on above: Order Comment: Speci men Type: URINE SPECIMENOrdering Facility: [facility] Address: [address] [place] [address] Performed By: #### L [id number] ####[facility] LABCLIA [id number] [place] [address] [place] Glucose Test strip (U) [Mass/Vol] Negative Normal Trace, Negative [facility] Comment on above: Order Comment: Speci men Type: URINE SPECIMENOrdering Facility: [facility] Address: [address] [place] [address] Performed By: #### L [id number] ####[facility] LABCLIA [id number] [place] [address] [place] Hemoglobin Ql (U) Negative Normal Negative, Trace [facility] Comment on above: Order Comment: Speci men Type: URINE SPECIMENOrdering Facility: [facility] Address: [address] [place] [address] Performed By: #### L [id number] ####[facility] LABCLIA [id number] [place] [address] [place] Ketones Ql (U) Negative Normal Negative, Trace [facility] Comment on above: Order Comment: Speci men Type: URINE SPECIMENOrdering Facility: [facility] Address: [address] [place] [address] Performed By: #### L [id number] ####[facility] LABCLIA [id number] [place] [address] [place] Leukocyte esterase Test strip Ql (U) Negative Normal Negative, 25 Brandon/uL [facility] Comment on above: Order Comment: Speci men Type: URINE SPECIMENOrdering Facility: [facility] Address: [address] [place] [address] Performed By: #### L [id number] ####[facility] LABCLIA [id number] [place] [address] [place] Nitrite Ql (U) Negative Normal Negative [facility] Comment on above: Order Comment: Speci men Type: URINE SPECIMENOrdering Facility: [facility] Address: [address] [place] [address] Performed By: #### L [id number] ####[facility] LABCLIA [id number] [place] [address] [place] pH (U) 5.0 [pH] Normal 5.0-8.0 [facility] Comment on above: Order Comment: Speci men Type: URINE SPECIMENOrdering Facility: [facility] Address: [address] [place] [address] Performed By: #### L [id number] ####[facility] LABIA [id number] [place] [address] [place] Protein (U) [Mass/Vol] Negative Normal Trace, Negative [facility] Comment on above: Order Comment: Speci men Type: URINE SPECIMENOrdering Facility: [facility] Address: [address] [place] [address] Performed By: #### L [id number] ####[facility] [id number] [place] [address] [place] Specific gravity (U) [Rel density] 1.027 Normal 1.005-1.030 [facility] Comment on above: Order Comment: Speci men Type: URINE SPECIMENOrdering Facility: [facility] Address: [address] [place] [address] Performed By: #### L [id number] ####[facility] [id number] [place] [address] [place] Urobilinogen Ql (U) Normal Normal Normal [facility] Comment on above: Order Comment: Speci men Type: URINE SPECIMENOrdering Facility: [facility] Address: [address] [place] [address] Performed By: #### L [id number] ####[facility] [id number] [place] [id number] [place] RAD - Nuclear Medicine Repor ton 09-15-2023 RAD - Nuclear Medicine Report [id number]#1.00TIFF Normal [facility] PET psma initial tx sb-[place] 09-14-2023 PET psma initial tx sb-mt [facility] [place] [address] Nuclear Medicine Report Signed Patient: Sukdheep Gamino MR#: [id number] 5 : 1960 Acct:[id number] Age/Sex: 62 / M ADM Date: 09/14/23 Loc: PE Room: Type: [facility] Attending Dr: Cesia Weeks MD Copies to: Shahriar Urrutia Jr, DO Patrick R Waters, MD Ordering Provider: Cesia Weeks MD Date [...] seen. Impression dictated by: Shahriar Urrutia Jr., D.O.09/14/2023 3:06 PM Dictation Location: [place] [address] Transcribed By: [facility] 09/14/23 1506 Dictated By: Shahriar Urrutia Jr, DO 09/14/23 1456 Signed By: 09/14/23 1506 [facility] RAD - Nuclear Medicine Repor ton 09-03-2023 RAD - Nuclear Medicine Report [id number]#1.00TIFF Normal [facility] C[facility] Normal [facility] Physician Orderon 09-01-2023 Physician Order [id number]#1.00TIFF Normal [facility] Ambulatory Visit Summaryon 0 08-31-2023 Ambulatory Visit Summary SUKHDEEP GAMINO :1960 Visit Date:08/31/2023 Ambulatory Visit Instructions Your Diagnosis Prostate cancer BPH with urinary obstruction Inguinal hernia Your Care Team Attending Physician - Cesia WEEKS MD Primary Care Physician - Alek Fatima MD [...] Follow Up with MICKY GARRISON, Cesia Hernández, URL When: Comments: f/u pending results of PSMA and bone scans Where: [facility] [address] , [place] [phone] Medications What How Much When Why Instructions [...] as fo (more content not included)... Normal [facility] Patient Educationon 08-31-19 Patient Education Oncology Prostate [...] likelihood that the cancer will spread. ? [place] 6 or lower: This indicates that the cancer cells look similar to normal prostate cells (well differentiated). ? [place] 7: This indicates that the cancer cells look somewhat similar to normal prostate cells (moderately differentiated). ? [place] 8, 9, or 10: This indicates that [...] be (more content not included)... Normal [facility] Urology Office/Clinic Noteon 08-31-2023 Urology Office/Clinic [...] cons of each therapy today, and the [employer] prostate cancer book was provided. Explained that [...] [facility] [address] , [place] [phone] Additional Instructions: f/u pending results of PSMA [...] BNT-162b2 vax (more content not included)... Normal [facility] Comment on above: Result Comment: Elec tronically Signed By: Cesia WEEKS MD\.br\Date and Time Signed: 08/31/23 10:34 EST\.br\Electronically Co-Signed By: Radha Balderas\.br\Date and Time Co-Signed: 08/31/23 10:25 EST Lab Reportson 08-28-2023 Lab Reports [id number]#1.00TIFF [facility] Consent for Procedure/Surger yon 08-26-2023 Consent for Procedure/Surgery [id number]#1.00TIFF [facility] Ambulatory Visit Summaryon 0 08-25-2023 Ambulatory Visit Summary SUKHDEEP GAMINO :1960 Visit Date:08/25/2023 Ambulatory Visit Instructions Your Diagnosis Elevated PSA BPH with urinary obstruction Inguinal hernia A-fib Your Care Team Attending Physician - Cesia WEEKS MD Primary Care Physician - Alek Fatima MD [...] GARRISON, Cesia Hernández Where: [facility] Roel 08-25-2023 L Specimen: [id number] Re ceived: 08/26/23 Status: SOUOg Req Num: [id number] Spec Type: Surgical Subm Dr: Cesia Weeks [...] Account Attending Physician Sukhdeep Gamino 62/M [place] [id number] Cesia Weeks MD SPEC NUM: [id number] RECD: 08/26/23 STATUS: [facility] NUM: [id number] BRIDGETTE: 08/25/23-[address]: Cesia Weeks MD ENTERED: 08/26/[address] [facility] [address]: SPEC TYPE: Surgical DEPT: [facility] [place] [facility] BY: [id number] ORDERED: HE/24, Gross/Micro L4/12 ORDERED: HE/24, Gross/Micro L4/12, USS/24 Pathological Diagnosis A. Prostate, left base, needle core biopsies: - Invasive prostate adenocarcinoma, Christine pattern 3+5, grade group 4. - Adenocarcinoma [...] group 5 Specimen: [id number] Received: 08/26/23 Status: [facility] Num: [id number] Spec Type: Surgical Subm Dr: Cesia Weeks [...] Procedures: HE/, Gross/Micro L4/12 Patient: Sukhdeep Gamino [id number] (Continued) Specimen: [id number] Received: 08/26/23 (Continued) Pathological Diagnosis (Continued) Signed (signature on file) Nani Ambrocio MD 08/27/23 0959 Specimen: [id number] Received: 08/26/23 Status: [facility] Num: [id number] Spec Type: Surgical Subm Dr: Cesia Weeks [...] Biopsy (RT LATERAL APEX) Procedures: , Gross/Micro /12 Patient: Sukhdeep Gamino [id number] (Continued) Specimen: [id number] Received: 08/26/23 (Continued) Pathological Diagnosis (Continued) - Adenocarcinoma involves 50% of the biopsy tissue. - Negative for lymphovascular and perineural invasion. D. Prostate, left lateral mid, needle core biopsy: - Invasive prostate adenocarcinoma, Christine pattern 4+5, minor 3, grade group 5 - Adenocarcinoma involves 60% of the biopsy tissue. - Negative for lymphovascular and perineural invasion E. Prostate, left apex, needle core biopsy: - Invasive prostate adenocarcinoma, Christine pattern 4+3, grade group 3 - Adenocarcinoma involves 60% of the biopsy tissue. - Negative for lymphovascular and perineural invasion F. Prostate, left lateral apex, needle core biopsy: - Invasive prostate adenocarcinoma [place] pattern 4+4, Minor 5, grade group 4 - Adenocarcinoma involves 40% of the biopsy tissue. - Negative for lymphovascular and perineural invasion. G. Prostate, (more content not included)... [facility] Patient Educationon 08-25-19 Patient Education Oncology Transrectal [...] near your rectum, especially while sitting. ? [place]-colored urine due to small amounts of blood in your urine. ? A burning feeling while urinating. ? Blood in your stool (feces) or bleeding from your rectum. ? Blood in your semen. Follow these instructions at home: Medicines ? Take qnxd-pcf-deuxzwv and prescription medicines only as told by [...] provider. Document Revised: 01/13/2022 Document Reviewed: 01/13/2022 [employer] Patient Education ? 2022 [employer] Hieu. [facility] Urology Office/Clinic Noteon 08-25-2023 Urology Office/Clinic [...] without complications. Pathology to be sent to [facility]. -F/u scheduled 09/11/23 to review path report [...] [facility] [address] , [place] [phone] Additional Instructions: review path on 09/11/23 Patient Education Transrectal Ultrasound-Guided Prostate Biopsy, Care After I, Radha Balderas, personally scribed for Dr. Weeks on 08/25/2023 [...] inhalation powd (more content not included)... Normal [facility] Comment on above: Result Comment: Elec tronically Signed By: Cesia WEEKS MD\.br\Date and Time Signed: 08/25/23 15:49 EST\.br\Electronically Co-Signed By: Radha Balderas\.br\Date and Time Co-Signed: 08/25/23 15:48 EST Lab Reportson 08-20-2023 Lab Reports [id number]#1.00TIFF [facility] Patient Correspondenceon Patient Correspondence [id number]#1.00TIFF [facility] Physician Referralon 024 Physician Referral [id number]#1.00TIFF [facility] Screenson 08-11-2023 Screens [id number]#1.00TIFF [facility] Ambulatory Visit Summaryon 0 08-10-2023 Ambulatory Visit Summary SUKHDEEP GAMINO :1960 Visit Date:08/10/2023 Ambulatory Visit Instructions Your Diagnosis Elevated PSA BPH with urinary obstruction A-fib Inguinal hernia Tests Performed Urnls Dip Stick Auto w/o Microscopy POC 76664 Your Care Team Attending Physician - MICKY [...] TRUS/bx Where: [facility] [address], [place] [address]- [phone] Medications What How Much When Instructions Unchanged [...] Urnls Dip Stick Auto w/o Microscopy POC 57948 (08/10/2023) Bilirubin Urine Dipstick - Negative Blood Urine Dipstick - Negative Glucose Urine Dipstick - Negative Ketones Urine Dipstick - Negative Leukocytes Urine Dipstick - Negative Nitrite Urine Dipstick - Negative Protein Urine Dipstick - Negative Specific [place] Urine Dipstick - 1.025 Urine Appearance Urine [...] near your rectum, especially while sitting. ? Lakeline-colored urine due to small amounts of blood in your urine. ? A burning feeling while urinating. ? Blood in your stool (feces) or bleeding from your rectum. ? Blood in your semen. Follow these instructions at home: Medicines ? Take lveu-apu-azyhqjc and prescription medicines only as told by [...] uri (more content not included)... Normal [facility] Patient Educationon 08-10-19 Patient Education Oncology [...] near your rectum, especially while sitting. ? Lakeline-colored urine due to small amounts of blood in your urine. ? A burning feeling while urinating. ? Blood in your stool (feces) or bleeding from your rectum. ? Blood in your semen. Follow these instructions at home: Medicines ? Take vvrv-ccc-ythiumr and prescription medicines only as told by [...] provider. Document Revised: 01/13/2022 Document Reviewed: 01/13/2022 [employer] Patient Education ? 2022 [employer]. Transrectal Ultrasound-Guided Prostate Biopsy A transrectal ultrasound-guided [...] including vitamins, herbs, eye drops, creams, and ybyl-tvl-qmgnsaj medicines. ? Any problems you or family [...] as aspirin (more content not included)... Normal [facility] Lab Reportson 07-30-2023 Lab Reports [id number]#1.00TIFF Normal [facility] Lab Reportson 07-29-2023 Lab Reports [id number]#1.00TIFF Normal [facility] Office Visiton 01-02-2023 Follow-up visit [id number] Sukhdeep Gamino 1960 M Date Provider Department Center 01/02/2023 AIMEE PRICE [facility] No family history on file Level of Service:12936 [place] OFFICE/OUTPATIENT ESTABLISHED LOW [facility] 20-29 MIN Reason for Visit and Comments: Atrial Fibrillation [80] Coronary Artery Disease [187] Hypertension [586611] Congestive Heart Failure [127] Normal [facility] XR LSPINE MIN 4 VIEWSon 05-04 [...] by: ALL RICARDO Date: 2022-05-26 19:58 Normal [facility] Basic metabolic 2000 panelon 06-27-2021 Anion gap [Moles/Vol] 8 mmol/L Normal 6-18 [facility] Comment on above: Performed By: #### 2 4321-2 #### [facility] ([facility] [address] [place] [address] Calcium [Mass/Vol] 8.7 mg/dL Low 8.9-10.3 [facility] Comment on above: Performed By: #### 2 4321-2 #### [facility] [address] [place] [address] Chloride [Moles/Vol] 106 mmol/L Normal 98-107 [facility] Comment on above: Performed By: #### 2 4321-2 #### [facility] [address] [place] [address] CO2 [Moles/Vol] 26 mmol/L Normal 22-32 [facility] Comment on above: Performed By: #### 2 4321-2 #### [facility] [address] [place] [address] Creatinine [Mass/Vol] 1.05 mg/dL Normal 0.60-1.30 [facility] Comment on above: Performed By: #### 2 4321-2 #### [facility] [address] [place] [address] GFR/1.73 sq M.predicted among non-blacks MDRD (S/P/Bld) [Vol rate/Area] 76 mL/min/{1.73_m2} Normal [facility] Comment on above: Performed By: #### 2 4321-2 #### [facility] [address] [place] [address] Glucose [Mass/Vol] 126 mg/dL High 70-99 [facility] Comment on above: Performed By: #### 2 4321-2 #### [facility] [address] [place] [address] Potassium [Moles/Vol] 4.3 mmol/L Normal 3.6-5.1 [facility] Comment on above: Performed By: #### 2 4321-2 #### [facility] [address] [place] [address] Sodium [Moles/Vol] 140 mmol/L Normal 136-145 [facility] Comment on above: Performed By: #### 2 4321-2 #### [facility] [address] [place] [place] [address] Urea nitrogen [Mass/Vol] 16 mg/dL Normal 8-20 [facility] Comment on above: Performed By: #### 2 4321-2 #### [facility] [address] [place] [address] Urea nitrogen/Creatinine [Mass ratio] 15.2 mg/mg Normal 12.0-20.0 [facility] Comment on above: Performed By: #### 2 4321-2 #### [facility] [address] [place] [address] Hemogram and platelets WO di fferential panel (Bld)on 06-27-2021 Basophils (Bld) [#/Vol] 0.00 10*3/uL Normal 0.00-0.20 [facility] Comment on above: Performed By: #### 2 4317-0 #### [facility] [address] [place] [address] Basophils/100 WBC (Bld) 0.1 % Normal 0.0-2.0 [facility] Comment on above: Performed By: #### 2 4317-0 #### [facility] [address] [place] [address] Eosinophils (Bld) [#/Vol] 0.00 10*3/uL Normal 0.00-0.70 [facility] Comment on above: Performed By: #### 2 4317-0 #### [facility] [address] [place] [address] Eosinophils/100 WBC (Bld) 0.0 % Normal 0.0-7.0 [facility] Comment on above: Performed By: #### 2 4317-0 #### [facility] ([facility] [address] [place] [address] Erythrocyte distribution width (RBC) [Ratio] 13.2 % Normal 11.0-14.8 [facility] Comment on above: Performed By: #### 2 4317-0 #### [facility] [address] [place] [address] Hematocrit (Bld) [Volume fraction] 36.3 % Low 39.0-49.0 [facility] Comment on above: Performed By: #### 2 4317-0 #### [facility] [address] [place] [address] Hemoglobin (Bld) [Mass/Vol] 12.2 g/dL Low 13.5-17.5 [facility] Comment on above: Performed By: #### 2 4317-0 #### [facility] [address] [place] [address] Lymphocytes (Bld) [#/Vol] 0.70 10*3/uL Low 1.00-4.80 [facility] Comment on above: Performed By: #### 2 4317-0 #### [facility] [address] [place] [address] Lymphocytes/100 WBC (Bld) 7.3 % Low 22.0-44.0 [facility] Comment on above: Performed By: #### 2 4317-0 #### [facility] [address] [place] [address] MCH 30.0 pcg Normal 27.0-34.0 [facility] Comment on above: Performed By: #### 2 4317-0 #### [facility] ([facility] [address] [place] [address] MCHC (RBC) [Mass/Vol] 33.5 g/dL Normal 32.0-36.0 [facility] Comment on above: Performed By: #### 2 4317-0 #### [facility] [address] [place] [address] MCV (RBC) [Entitic vol] 89.5 fL Normal 80.0-97.0 [facility] Comment on above: Performed By: #### 2 4317-0 #### [facility] [address] [place] [address] Monocytes (Bld) [#/Vol] 1.00 10*3/uL High 0.00-0.90 [facility] Comment on above: Performed By: #### 2 4317-0 #### [facility] [address] [place] [address] Monocytes/100 WBC (Bld) 11.6 % Normal 0.0-12.0 [facility] Comment on above: Performed By: #### 2 4317-0 #### [facility] [address] [place] [address] Neutrophils Absolute 7.30 K/mcL Normal 1.80-7.70 [facility] Comment on above: Performed By: #### 2 4317-0 #### [facility] [address] [place] [address] Neutrophils/100 WBC (Bld) 81.0 % High 40.0-70.0 [facility] Comment on above: Performed By: #### 2 4317-0 #### [facility] [address] [place] [address] Platelet mean volume (Bld) [Entitic vol] 7.0 fL Normal 6.2-12.1 [facility] Comment on above: Performed By: #### 2 4317-0 #### [facility] [address] [place] [address] Platelets (Bld) [#/Vol] 195 10*3/uL Normal 142-424 [facility] Comment on above: Performed By: #### 2 4317-0 #### [facility] [address] [place] [address] RBC (Bld) [#/Vol] 4.06 10*6/uL Low 4.30-5.70 [facility] Comment on above: Performed By: #### 2 4317-0 #### [facility] [address] [place] [address] WBC (Bld) [#/Vol] 9.0 10*3/uL Normal 4.6-10.2 [facility] Comment on above: Performed By: #### 2 4317-0 #### [facility] [address] [place] [address] PT Coag (PPP) [Time]on 06-27 INR Coag (PPP) [Relative time] 1.2 {INR} Normal <=5.0 [facility] Comment on above: Result Comment: The recommended therapeutic INR range for most cardiac indications is 2.0-3.0 For high intensity therapy (i.e. mechanical heart valves), the recommended range is 2.5-3.5 Performed By: #### 2 4321-2 #### [facility] [address] [place] [address] Prothrombin timeon PT Coag (PPP) [Time] 15.0 s High 11.9-14.7 [facility] Comment on above: Performed By: #### 2 4321-2 #### [facility] [address] [place] [address] 12032 Glucose Auto test strip (Bld ) [Mass/Vol]on 06-26-2021 Glucose [Mass/Vol] 82 mg/dL Normal 70-99 [facility] Comment on above: Performed By: #### 2 340-8 #### [facility] [address] [place] [address] Glucose [Mass/Vol] 146 mg/dL High 70-99 [facility] Comment on above: Performed By: #### 2 340-8 #### [facility] [address] [place] [address] 65696 PT Coag (PPP) [Time]on 06-26 INR Coag (PPP) [Relative time] 1.2 {INR} Normal <=5.0 [facility] Comment on above: Result Comment: The recommended therapeutic INR range for most cardiac indications is 2.0-3.0 For high intensity therapy (i.e. mechanical heart valves), the recommended range is 2.5-3.5 Performed By: #### 5 902-2 #### [facility] [address] [place] [address] INR Coag (PPP) [Relative time] 1.1 {INR} Normal <=5.0 [facility] Comment on above: Result Comment: The recommended therapeutic INR range for most cardiac indications is 2.0-3.0 For high intensity therapy (i.e. mechanical heart valves), the recommended range is 2.5-3.5 Performed By: #### 5 902-2 #### [facility] [address] [place] [address] 21053 Prothrombin timeon PT Coag (PPP) [Time] 14.7 s Normal 11.9-14.7 [facility] Comment on above: Performed By: #### 5 902-2 #### [facility] [address] [place] [address] 42774 PT Coag (PPP) [Time] 14.1 s Normal 11.9-14.7 [facility] Comment on above: Performed By: #### 5 902-2 #### [facility] ([facility]) [facility] [address] [place] [address] XR FLUORO UP TO 1 HOUR (STAT ISTICS)(NO REPORT)on 06-26-2021 XR FLUORO UP TO 1 HOUR (STATISTICS)(NO REPORT) This order has been auto-finalized and does not contain a result. Normal [facility] XR Fluoro Up To 1 Hour (Stat [...] Self Edit Transcribed Date: 06/26/2021 13:48 Normal [facility] Covid-19 PCR (CVDTBH)on 06-04 SARS-CoV-2 (COVID-19) RNA NANCY+probe Ql (Unsp spec) Not detected Normal NOT DETECTED [facility] Comment on above: Result Comment: This test is not yet approved or cleared by the [place] FDA. When there are no FDA-approved or cleared tests available, and other criteria are met, FDA can make tests available under an emergency access mechanism called an Emergency Use Authorization (EUA). The EUA for this test is supported by the [place] of Health and Human Service's (HHS's) declaration [...] consistent with SARS-CoV-2. Performed By: #### C [facility] #### [facility] [address] [address] [address] Grant Carrillo Basic metabolic 2000 panelon 06-03-2021 Anion gap [Moles/Vol] 9 mmol/L Normal 6-18 [facility] Comment on above: Performed By: #### 2 4321-2 #### [facility] [address] [place] [address] Calcium [Mass/Vol] 9.4 mg/dL Normal 8.9-10.3 [facility] Comment on above: Performed By: #### 2 4321-2 #### [facility] [address] [place] [address] Chloride [Moles/Vol] 105 mmol/L Normal 98-107 [facility] Comment on above: Performed By: #### 2 4321-2 #### [facility] [address] [place] [address] CO2 [Moles/Vol] 25 mmol/L Normal 22-32 [facility] Comment on above: Performed By: #### 2 4321-2 #### [facility] [address] [place] [address] Creatinine [Mass/Vol] 1.05 mg/dL Normal 0.60-1.30 [facility] Comment on above: Performed By: #### 2 4321-2 #### [facility] [address] [place] [address] GFR/1.73 sq M.predicted among non-blacks MDRD (S/P/Bld) [Vol rate/Area] 76 mL/min/{1.73_m2} Normal [facility] Comment on above: Performed By: #### 2 4321-2 #### [facility] [address] [place] [address] Glucose [Mass/Vol] 96 mg/dL Normal 70-99 [facility] Comment on above: Performed By: #### 2 4321-2 #### [facility] [address] [place] [address] Potassium [Moles/Vol] 4.4 mmol/L Normal 3.6-5.1 [facility] Comment on above: Performed By: #### 2 4321-2 #### [facility] [address] [place] [address]008 Sodium [Moles/Vol] 139 mmol/L Normal 136-145 [facility] Comment on above: Performed By: #### 2 4321-2 #### [facility] [address] [place] [address]235 Urea nitrogen [Mass/Vol] 23 mg/dL High 8-20 [facility] Comment on above: Performed By: #### 2 4321-2 #### [facility] [address] [place] [address] 49462 Urea nitrogen/Creatinine [Mass ratio] 21.9 mg/mg High 12.0-20.0 [facility] Comment on above: Performed By: #### 2 4321-2 #### [facility] [address] [place] [address]56 Hemogram and platelets WO di fferential panel (Bld)on 06-03-2021 Basophils (Bld) [#/Vol] 0.10 10*3/uL Normal 0.00-0.20 [facility] Comment on above: Performed By: #### 2 4317-0 #### [facility] [address] [place] [address] 35672 Basophils/100 WBC (Bld) 0.5 % Normal 0.0-2.0 [facility] Comment on above: Performed By: #### 2 4317-0 #### [facility] [address] [place] [address]104 Eosinophils (Bld) [#/Vol] 0.10 10*3/uL Normal 0.00-0.70 [facility] Comment on above: Performed By: #### 2 7-0 #### [facility] [address] [place] [address]998 Eosinophils/100 WBC (Bld) 0.6 % Normal 0.0-7.0 [facility] Comment on above: Performed By: #### 2 7-0 #### [facility] [address] [place] [address]78 Erythrocyte distribution width (RBC) [Ratio] 13.7 % Normal 11.0-14.8 [facility] Comment on above: Performed By: #### 2 4317-0 #### [facility] [address] [place] [address] 08894 Hematocrit (Bld) [Volume fraction] 45.9 % Normal 39.0-49.0 [facility] Comment on above: Performed By: #### 2 4317-0 #### [facility] [address] [place] [address] 59233 Hemoglobin (Bld) [Mass/Vol] 15.1 g/dL Normal 13.5-17.5 [facility] Comment on above: Performed By: #### 2 4317-0 #### [facility] [address] [place] [address] 34366 Lymphocytes (Bld) [#/Vol] 1.20 10*3/uL Normal 1.00-4.80 [facility] Comment on above: Performed By: #### 2 4317-0 #### [facility] [address] [place] [address] 60100 Lymphocytes/100 WBC (Bld) 11.3 % Low 22.0-44.0 [facility] Comment on above: Performed By: #### 2 4317-0 #### [facility] [address] [place] [address] 56238 MCH 29.8 pcg Normal 27.0-34.0 [facility] Comment on above: Performed By: #### 2 4317-0 #### [facility] [address] [place] [address] 80328 MCHC (RBC) [Mass/Vol] 33.0 g/dL Normal 32.0-36.0 [facility] Comment on above: Performed By: #### 2 4317-0 #### [facility] [address] [place] [address] 51132 MCV (RBC) [Entitic vol] 90.4 fL Normal 80.0-97.0 [facility] Comment on above: Performed By: #### 2 4317-0 #### [facility] [address] [place] [address] 75159 Monocytes (Bld) [#/Vol] 1.10 10*3/uL High 0.00-0.90 [facility] Comment on above: Performed By: #### 2 4317-0 #### [facility] [address] [place] [address] 21544 Monocytes/100 WBC (Bld) 9.8 % Normal 0.0-12.0 [facility] Comment on above: Performed By: #### 2 4317-0 #### [facility] [address] [place] [address] Neutrophils Absolute 8.50 K/mcL High 1.80-7.70 [facility] Comment on above: Performed By: #### 2 4317-0 #### [facility] [address] [place] [address] Neutrophils/100 WBC (Bld) 77.8 % High 40.0-70.0 [facility] Comment on above: Performed By: #### 2 4317-0 #### [facility] [address] [place] [address] Platelet mean volume (Bld) [Entitic vol] 7.1 fL Normal 6.2-12.1 [facility] Comment on above: Performed By: #### 2 4317-0 #### [facility] [address] [place] [address]85 Platelets (Bld) [#/Vol] 379 10*3/uL Normal 142-424 [facility] Comment on above: Performed By: #### 2 4317-0 #### [facility] [address] [place] [address] RBC (Bld) [#/Vol] 5.08 10*6/uL Normal 4.30-5.70 [facility] Comment on above: Performed By: #### 2 4317-0 #### [facility] [address] [place] [address] 73624 WBC (Bld) [#/Vol] 10.9 10*3/uL High 4.6-10.2 [facility] Comment on above: Performed By: #### 2 4317-0 #### [facility] [address] [facility] [address] Cardiovascular Lab Reporton 01-29-2021 Cardiovascular Lab Report [facility] Patient Name: [facility] MR #: [id number] Physician: Adriana Huff, Department of M.D. Medicine Service Date: 01/28/2021 Division of Birthdate: 1960 Cardiology Room #: [facility] Cardiovascular Services [facility] [address] [id number] Cardiovascular Laboratory Report FINAL IMPRESSIONS: 1. Keds-ro-ezrxtpir single-vessel coronary artery disease. 2. Mildly reduced [...] Huff and/or a nurse practitioner in the [place] outpatient setting in the next 2 to 3 months. 5. Follow up with Dr. Fatima as scheduled; consider referral to a solar sales assessor as clinically appropriate. PROCEDURES: Ultrasound-guided access to [...] right internal jugular vein was obtained. A 6-[place]ayan 11 cm sheath was inserted without difficulty. [...] to access the left radial artery. A 6-[place]ayan glide sheath was inserted without difficulty. Bilateral [...] coronary artery disease. Electronically Signed by: Adriana uHff M.D. 01/31/2021 03:45 P Adriana Huff M.D. Date Dict: 01/28/2021/01:00 P/Adriana Huff M.D. Date Trans: 01/29/2021 02:16 A/wai [id number] cc: Alek Fatima M.D. [address] [facility] [id number] [facility] Vital Signs Date Time Vital Sign Value Performing Clinician Facility 08-01-2024 08:35-0500 Body mass index (BMI) [Ratio] 28.03 kg/m2 MARYANNE Kamara MD Work Phone: [facility] 08-01-2024 08:35-0500 Body temperature 98.2 [degF] MARYANNE Kamara MD Work Phone: [facility] 08-01-2024 08:35-0500 Body weight 88.6 kg MARYANNE Kamara MD Work Phone: [facility] 08-01-2024 08:35-0500 Diastolic blood pressure 95 mm[Hg] MARYANNE Kamara MD Work Phone: [facility] Comment on above: repeat 138/104 08-01-2024 08:35-0500 Heart rate 118 /min MARYANNE Kamara MD Work Phone: [facility] 08-01-2024 08:35-0500 Respiratory rate 16 /min MARYANNE Kamara MD Work Phone: [facility] 08-01-2024 08:35-0500 SaO2% (BldA) [Mass fraction] 96 % MARYANNE Kamara MD Work Phone: [facility] 08-01-2024 08:35-0500 Systolic blood pressure 136 mm[Hg] MARYANNE Kamara MD Work Phone: [facility] Comment on above: repeat 138/104 07-25-2024 15:36-0500 Body mass index (BMI) [Ratio] 27.99 kg/m2 MARYANNE Kamara MD Work Phone: [facility] 07-25-2024 15:36-0500 Body temperature 96.69 [degF] MARYANNE Kamara MD Work Phone: [facility] 07-25-2024 15:36-0500 Body weight 88.5 kg MARYANNE Kamara MD Work Phone: [facility] 07-25-2024 15:36-0500 Diastolic blood pressure 96 mm[Hg] MARYANNE Kamara MD Work Phone: [facility] 07-25-2024 15:36-0500 Heart rate 107 /min MARYANNE Kamara MD Work Phone: [facility] 07-25-2024 15:36-0500 Respiratory rate 18 /min MARYANNE Kamara MD Work Phone: [facility] 07-25-2024 15:36-0500 SaO2% (BldA) [Mass fraction] 100 % MARYANNE Kamara MD Work Phone: [facility] 07-25-2024 15:36-0500 Systolic blood pressure 144 mm[Hg] MARYANNE Kamara MD Work Phone: [facility] 07-19-2024 08:42-0500 Body mass index (BMI) [Ratio] 27.2 kg/m2 Mil Crum MD Work Phone: [facility] 07-19-2024 08:42-0500 Body temperature 98.1 [degF] Mil Crum MD Work Phone: [facility] 07-19-2024 08:42-0500 Body weight 86 kg Mil Crum MD Work Phone: [facility] 07-19-2024 08:42-0500 Diastolic blood pressure 101 mm[Hg] Mil Crum MD Work Phone: [facility] Comment on above: repeat 158/92 07-19-2024 08:42-0500 Heart rate 101 /min Mil Crum MD Work Phone: [facility] 07-19-2024 08:42-0500 Respiratory rate 18 /min Mil Crum MD Work Phone: [facility] 07-19-2024 08:42-0500 SaO2% (BldA) [Mass fraction] 100 % Mil Crum MD Work Phone: [facility] 07-19-2024 08:42-0500 Systolic blood pressure 155 mm[Hg] Mil Crum MD Work Phone: [facility] Comment on above: repeat 158/92 07-11-2024 16:31-0500 Body mass index (BMI) [Ratio] 27.33 kg/m2 MARYANNE Kamara MD Work Phone: [facility] [facility] 07-11-2024 16:31-0500 Body temperature 97.39 [degF] MARYANNE Kamara MD Work Phone: [facility] 07-11-2024 16:31-0500 Body weight 86.4 kg MARYANNE Kamara MD Work Phone: [facility] 07-11-2024 16:31-0500 Diastolic blood pressure 91 mm[Hg] MARYANNE Kamara MD Work Phone: [facility] 07-11-2024 16:31-0500 Heart rate 86 /min MARYANNE Kamara MD Work Phone: [facility] 07-11-2024 16:31-0500 Respiratory rate 16 /min MARYANNE Kamara MD Work Phone: [facility] 07-11-2024 16:31-0500 SaO2% (BldA) [Mass fraction] 100 % MARYANNE Kamara MD Work Phone: [facility] 07-11-2024 16:31-0500 Systolic blood pressure 155 mm[Hg] MARYANNE Kamara MD Work Phone: [facility] 07-04-2024 16:01-0500 Body mass index (BMI) [Ratio] 27.2 kg/m2 MARYANNE Kamara MD Work Phone: [facility] 07-04-2024 16:01-0500 Body temperature 98.29 [degF] MARYANNE Kamara MD Work Phone: [facility] 07-04-2024 16:01-0500 Body weight 86 kg MARYANNE Kamara MD Work Phone: [facility] 07-04-2024 16:01-0500 Diastolic blood pressure 95 mm[Hg] MARYANNE Kamara MD Work Phone: [facility] 07-04-2024 16:01-0500 Heart rate 87 /min MARYANNE Kamara MD Work Phone: [facility] 07-04-2024 16:01-0500 Respiratory rate 18 /min MARYANNE Kamara MD Work Phone: [facility] 07-04-2024 16:01-0500 SaO2% (BldA) [Mass fraction] 98 % MARYANNE Kamara MD Work Phone: [facility] 07-04-2024 16:01-0500 Systolic blood pressure 133 mm[Hg] MARYANNE Kamara MD Work Phone: [facility] 06-27-2024 15:56-0500 Body mass index (BMI) [Ratio] 27.36 kg/m2 MARYANNE Kamara MD Work Phone: [facility] 06-27-2024 15:56-0500 Body temperature 97.59 [degF] MARYANNE Kamara MD Work Phone: [facility] 06-27-2024 15:56-0500 Body weight 86.5 kg MARYANNE Kamara MD Work Phone: [facility] 06-27-2024 15:56-0500 Diastolic blood pressure 87 mm[Hg] MARYANNE Kamara MD Work Phone: [facility] 06-27-2024 15:56-0500 Heart rate 102 /min MARYANNE Kamara MD Work Phone: [facility] 06-27-2024 15:56-0500 Respiratory rate 16 /min MARYANNE Kamara MD Work Phone: [facility] 06-27-2024 15:56-0500 SaO2% (BldA) [Mass fraction] 100 % MARYANNE Kamara MD Work Phone: [facility] 06-27-2024 15:56-0500 Systolic blood pressure 129 mm[Hg] MARYANNE Kamara MD Work Phone: [facility] 06-15-2024 14:33-0500 Body mass index (BMI) [Ratio] 27.17 kg/m2 MARYANNE Kamara MD Work Phone: [facility] 06-15-2024 14:33-0500 Body weight 85.9 kg MARYANNE Kamara MD Work Phone: [facility] 06-06-2024 14:57-0500 Body mass index (BMI) [Ratio] 27.33 kg/m2 [facility] Work Phone: [facility] 06-06-2024 14:57-0500 Body temperature 98.1 [degF] [facility] Work Phone: [facility] 06-06-2024 14:57-0500 Body weight 86.4 kg [facility] Work Phone: [facility] 06-06-2024 14:57-0500 Diastolic blood pressure 90 mm[Hg] [facility] Work Phone: [facility] 06-06-2024 14:57-0500 Heart rate 96 /min [facility] Work Phone: [facility] 06-06-2024 14:57-0500 Respiratory rate 16 /min [facility] Work Phone: [facility] 06-06-2024 14:57-0500 SaO2% (BldA) [Mass fraction] 100 % [facility] Work Phone: [facility] 06-06-2024 14:57-0500 Systolic blood pressure 137 mm[Hg] [facility] Work Phone: [facility] 05-19-2024 10:44-0400 Body temperature 97.5 [degF] MARYANNE Kamara MD Work Phone: [facility] 05-19-2024 10:44-0400 Diastolic blood pressure 92 mm[Hg] MARYANNE Kamara MD Work Phone: [facility] 05-19-2024 10:44-0400 Heart rate 80 /min MARYANNE Kamara MD Work Phone: [facility] 05-19-2024 10:44-0400 Respiratory rate 16 /min MARYANNE Kamara MD Work Phone: [facility] 05-19-2024 10:44-0400 SaO2% (BldA) [Mass fraction] 100 % MAYRANNE Kamara MD Work Phone: [facility] 05-19-2024 10:44-0400 Systolic blood pressure 138 mm[Hg] MARYANNE Kamara MD Work Phone: [facility] 04-28-2024 09:51-0400 Body mass index (BMI) [Ratio] 27.33 kg/m2 MARYANNE Kamara MD Work Phone: [facility] 04-28-2024 09:51-0400 Body temperature 98.2 [degF] MARYANNE Kamara MD Work Phone: [facility] 04-28-2024 09:51-0400 Body weight 86.4 kg MARYANNE Kamara MD Work Phone: [facility] 04-28-2024 09:51-0400 Diastolic blood pressure 87 mm[Hg] MARYANNE Kamara MD Work Phone: [facility] 04-28-2024 09:51-0400 Heart rate 81 /min MARYANNE Kamara MD Work Phone: [facility] 04-28-2024 09:51-0400 Respiratory rate 16 /min MARYANNE Kamara MD Work Phone: [facility] 04-28-2024 09:51-0400 SaO2% (BldA) [Mass fraction] 100 % MARYANNE Kamara MD Work Phone: [facility] 04-28-2024 09:51-0400 Systolic blood pressure 146 mm[Hg] MARYANNE Kamara MD Work Phone: [facility] 11-03-2023 12:30-0400 Body height 177.8 cm [facility] 9 Work Phone: [facility] 11-03-2023 12:30-0400 Body temperature 97.2 [degF] [facility] 9 Work Phone: [facility] 11-03-2023 12:30-0400 Body weight 86.8 kg [facility] 9 Work Phone: [facility] 11-03-2023 12:30-0400 Diastolic blood pressure 82 mm[Hg] [facility] 9 Work Phone: [facility] 11-03-2023 12:30-0400 Heart rate 87 /min [facility] 9 Work Phone: [facility] 11-03-2023 12:30-0400 SaO2% (BldA) [Mass fraction] 99 % [facility] 9 Work Phone: [facility] 11-03-2023 12:30-0400 Systolic blood pressure 117 mm[Hg] [facility] 9 Work Phone: [facility] 10-02-2023 13:36-0500 Body height 177.8 cm Roxana Bah MD Work Phone: [facility] 10-02-2023 13:36-0500 Body weight 87.25 kg Roxana Bah MD Work Phone: [facility] 10-02-2023 13:36-0500 Diastolic blood pressure 96 mm[Hg] Roxana Bah MD Work Phone: [facility] 10-02-2023 13:36-0500 Heart rate 66 /min Roxana Bah MD Work Phone: [facility] 10-02-2023 13:36-0500 Systolic blood pressure 154 mm[Hg] Roxana Bah MD Work Phone: [facility] 08-31-2023 09:12-0500 Diastolic blood pressure 88 mm[Hg] Cesia WEEKS [facility] 08-31-2023 09:12-0500 Mean blood pressure 102 mm[Hg] Cesia WEEKS [facility] 08-31-2023 09:12-0500 Systolic blood pressure 131 mm[Hg] Cesia WEEKS [facility] 08-31-2023 09:06-0500 Blood Pressure Location Cesia WEEKS [facility] 08-31-2023 09:06-0500 Diastolic blood pressure 90 mm[Hg] Cesia WEEKS [facility] 08-31-2023 09:06-0500 Heart rate 68 /min Cesia WEEKS [facility] 08-31-2023 09:06-0500 Respiratory rate 16 /min Cesia WEEKS [facility] 08-31-2023 09:06-0500 Systolic blood pressure 145 mm[Hg] Cesia WEEKS [facility] 08-25-2023 15:20-0500 Diastolic blood pressure 84 mm[Hg] Cesia WEEKS [facility] 08-25-2023 15:20-0500 Heart rate 82 /min Cesia WEEKS [facility] 08-25-2023 15:20-0500 Systolic blood pressure 128 mm[Hg] Cesia WEEKS [facility] 08-10-2023 11:32-0500 Diastolic blood pressure 105 mm[Hg] Cesia WEEKS [facility] 08-10-2023 11:32-0500 Mean blood pressure 117 mm[Hg] Cesia WEEKS [facility] 08-10-2023 11:32-0500 Systolic blood pressure 142 mm[Hg] Cesia WEEKS [facility] 08-10-2023 11:26-0500 Blood Pressure Location Cesia WEEKS [facility] 08-10-2023 11:26-0500 Diastolic blood pressure 106 mm[Hg] Cesia WEEKS [facility] 08-10-2023 11:26-0500 Heart rate 80 /min Cesia WEEKS [facility] 08-10-2023 11:26-0500 Respiratory rate 16 /min Cesia WEEKS [facility] 08-10-2023 11:26-0500 Systolic blood pressure 144 mm[Hg] Cesia WEEKS [facility] Encounters Encounter Date Encounter Type Care Provider Facility Start: 08-02-2024 End: 08-02-2024 ambulatory ALEK FATIMA Facility:[facility] Start: 08-01-2024 End: 08-01-2024 Patient encounter procedure Arnulfo Kamara MD Work Phone: Radiation Oncology Comment on above: Malignant neoplasm o f prostate (HCC) (Primary Dx) Start: 08-01-2024 End: 08-01-2024 ambulatory Arnulfo KAMARA Facility:[facility] Start: 07-29-2024 End: 07-29-2024 ambulatory ALEK FATIMA Facility:[facility] Start: 07-28-2024 End: 07-28-2024 ambulatory ALEK FATIMA Facility:[facility] Start: 07-26-2024 End: 07-26-2024 ambulatory ALEK FATIMA Facility:[facility] Start: 07-25-2024 End: 07-25-2024 Patient encounter procedure Arnulfo Kamara MD Work Phone: Radiation Oncology Comment on above: Malignant neoplasm o f prostate (HCC) (Primary Dx) Start: 07-25-2024 End: 07-25-2024 ambulatory Arnulfo KAMARA Facility:[facility] Start: 07-22-2024 End: 07-22-2024 ambulatory ALEK M HOY Facility:[facility] Start: 07-21-2024 End: 07-22-2024 ambulatory G JEWEL KAMARA Facility:[facility] Start: 07-21-2024 End: 07-29-2024 Telephone encounter Arnulfo Kamara MD Work Phone: Radiation Oncology Comment on above: Orders Start: 07-20-2024 End: 07-20-2024 ambulatory ALEK M HOY Facility:[facility] Start: 07-19-2024 End: 07-19-2024 ambulatory ALEK M HOY Facility:[facility] Start: 07-19-2024 End: 07-19-2024 Patient encounter procedure Mil Crum MD Work Phone: Radiation Oncology Comment on above: Malignant neoplasm o f prostate (HCC) (Primary Dx) Start: 07-18-2024 End: 07-18-2024 ambulatory ALEK M HOY Facility:[facility] Start: 07-15-2024 End: 07-15-2024 ambulatory ALEK M HOY Facility:[facility] Start: 07-14-2024 End: 07-14-2024 ambulatory ALEK M HOY Facility:[facility] Start: 07-13-2024 End: 07-13-2024 ambulatory ALEK M HOY Facility:[facility] Start: 07-12-2024 End: 07-12-2024 ambulatory ALEK M HOY Facility:[facility] Start: 07-11-2024 End: 07-11-2024 Patient encounter procedure Arnulfo Kamara MD Work Phone: Radiation Oncology Comment on above: Malignant neoplasm o f prostate (HCC) (Primary Dx) Start: 07-11-2024 End: 07-11-2024 ambulatory Arnulfo KAMARA Facility:[facility] Start: 07-08-2024 End: 07-08-2024 ambulatory ALEK M HOY Facility:[facility] Start: 07-07-2024 End: 07-07-2024 ambulatory ALEK M HOY Facility:[facility] Start: 07-06-2024 End: 07-06-2024 ambulatory ALEK M HOY Facility:[facility] Start: 07-05-2024 End: 07-05-2024 ambulatory ALEK M HOY Facility:[facility] Start: 07-04-2024 End: 07-04-2024 Patient encounter procedure Arnulfo Kamara MD Work Phone: Radiation Oncology Comment on above: Malignant neoplasm o f prostate (HCC) (Primary Dx) Start: 07-04-2024 End: 07-04-2024 ambulatory ALEK M HOY Facility:[facility] Start: 06-29-2024 End: 06-29-2024 ambulatory ALEK M HOY Facility:[facility] Start: 06-28-2024 End: 06-28-2024 ambulatory ALEK M HOY Facility:[facility] Start: 06-27-2024 End: 06-27-2024 Patient encounter procedure Arnulfo Kamara MD Work Phone: Radiation Oncology Comment on above: Malignant neoplasm o f prostate (HCC) (Primary Dx) Start: 06-27-2024 End: 06-27-2024 ambulatory Arnulfo KAMARA Facility:[facility] Start: 06-26-2024 End: 06-26-2024 ambulatory ALEK M HOY Facility:[facility] Start: 06-24-2024 End: 06-24-2024 ambulatory ALEK M HOY Facility:[facility] Start: 06-23-2024 End: 06-23-2024 Patient encounter procedure [facility] Work Phone: Radiation Oncology Comment on above: Prostate cancer (HCC ) Start: 06-23-2024 End: 06-23-2024 ambulatory Arnulfo KAMARA Facility:[facility] Start: 06-22-2024 End: 06-22-2024 ambulatory ALEK M HOY Facility:[facility] Start: 06-21-2024 End: 06-21-2024 [facility] Start: 06-20-2024 End: 06-20-2024 Patient encounter procedure Arnulfo Kamara MD Work Phone: Radiation Oncology Comment on above: Prostate cancer (HCC ) (Primary Dx) Start: 06-20-2024 End: 06-20-2024 ambulatory Arnulfo JEWEL KAMARA Facility:[facility] Start: 06-17-2024 End: 06-17-2024 ambulatory ALEK M Christy Facility:[facility] Start: 06-16-2024 End: 06-16-2024 ambulatory [facility] Facility:[facility] Start: 06-15-2024 End: 06-15-2024 Patient encounter procedure Arnulfo Kamara MD Work Phone: Radiation Oncology Comment on above: Prostate cancer (HCC ) (Primary Dx) Start: 06-15-2024 End: 06-15-2024 ambulatory Arnulfo KAMARA Facility:[facility] Start: 06-13-2024 End: 06-13-2024 Telephone encounter Arnulfo Kamara MD Work Phone: Radiation Oncology Comment on above: Orders Start: 06-07-2024 End: 06-09-2024 Telephone encounter Gloria Trujillo [facility] Work Phone: [facility] Comment on above: Medication Update (O rgovyx) Start: 06-06-2024 End: 06-07-2024 Orders Only Arnulfo Kamara MD Work Phone: Radiation Oncology Comment on above: Malignant neoplasm o f prostate (HCC) (Primary Dx) Prostate cancer (HCC ) (Primary Dx) Arrived Start: 06-06-2024 End: 06-15-2024 Patient encounter procedure Arnulfo Kamara MD Work Phone: Radiation Oncology Start: 06-06-2024 End: 06-15-2024 Radiation Oncology Note Arnulfo Kamara MD Work Phone: Radiation Oncology Comment on above: Simulation Note Treatment Planning Start: 05-23-2024 End: 05-23-2024 Telephone encounter Roxy Sarabia RN Radiation Oncology Comment on above: Orders Start: 05-20-2024 End: 05-23-2024 Telephone encounter Arnulfo Kamara MD Work Phone: Radiation Oncology Start: 05-19-2024 End: 05-19-2024 Patient encounter procedure [facility] Work Phone: Radiation Oncology Comment on above: Malignant neoplasm o f prostate (HCC) (Primary Dx) History of prostate cancer (Primary Dx) Start: 05-19-2024 End: 05-20-2024 ambulatory Arnulfo KAMARA Facility:[facility] Start: 05-17-2024 End: 05-17-2024 Refill Katrina Warner APRN.BAND SPLICER Work Phone: Urology Comment on above: Refill Request Start: 05-12-2024 End: 05-12-2024 ambulatory Arnulfo KAMARA Facility:[facility] Start: 05-12-2024 End: 05-12-2024 Subsequent hospital visit by physician Arrival Time Radiology Work Phone: Radiology Pet CT Comment on above: Rising PSA following treatment for malignant neoplasm of prostate [R97.21] Start: 05-03-2024 End: 05-03-2024 Orders Only Charlene Avalos [facility] Work Phone: Hematology/Oncology Start: 04-28-2024 End: 05-17-2024 Telephone encounter Arnulfo Kamara MD Work Phone: Radiation Oncology Comment on above: Orders Nm Pet Request Start: 04-28-2024 End: 04-28-2024 ambulatory Ann Braswell LPN Radiation Oncology Comment on above: Patient Education Start: 04-28-2024 End: 04-28-2024 Patient encounter procedure Arnulfo Kamara MD Work Phone: Radiation Oncology Comment on above: History of prostate cancer; Rising PSA following treatment for malignant neoplasm of prostate Start: 04-26-2024 End: 04-26-2024 ambulatory ALEK FATIMA Facility:[facility] Start: 04-20-2024 End: 04-20-2024 Office outpatient visit 15 minutes Viral Plata MD Work Phone: [facility] Comment on above: Actinic keratosis (P rimary Dx) Start: 04-20-2024 End: 04-20-2024 ambulatory VIRAL PLATA Not Available Start: 04-20-2024 End: 04-20-2024 Bamboo flowsheet Viral Plata MD Work Phone: [facility] Start: 04-20-2024 End: 04-20-2024 Bamemelia flowsheet Viral Plata MD Work Phone: [facility] Start: 04-07-2024 End: 04-07-2024 Follow-up encounter Katrina Warner APRN.CNP Work Phone: Urology Comment on above: Encounter for follow -up surveillance of prostate cancer (Primary Dx); History of prostate cancer; Rising PSA following treatment for malignant neoplasm of prostate; PREETI (stress urinary incontinence), male; Erectile dysfunction following radical prostatectomy Start: 04-07-2024 End: 04-07-2024 Telemedicine consultation with patient Katrina Warner APRN.CNP Work Phone: Urology Start: 04-07-2024 End: 04-07-2024 ambulatory KATRINA WARNER Facility:[facility] Start: 03-31-2024 End: 03-31-2024 ambulatory ALEK FATIMA Facility:[facility] Start: 03-01-2024 End: 03-01-2024 ambulatory VIRAL PLATA Not Available Start: 12-30-2023 End: 12-30-2023 ambulatory KATRINA WARNER Facility:[facility] Start: 12-30-2023 End: 12-30-2023 Follow-up encounter Katrina Warner APRN.CNP Work Phone: Urology Comment on above: Encounter for follow -up surveillance of prostate cancer (Primary Dx); History of prostate cancer; PREETI (stress urinary incontinence), male; Erectile dysfunction following radical prostatectomy Start: 12-30-2023 End: 12-30-2023 Telemedicine consultation with patient Katrina Warner APRN.BAND SPLICER Work Phone: Urology Start: 12-29-2023 End: 12-29-[address] [facility] Start: 12-25-2023 End: 12-25-2023 ambulatory ALEK FATIMA Facility:[facility] Start: 11-18-2023 End: 11-18-2023 ambulatory Katrina Warner APRN.BAND SPLICER Work Phone: Urology Comment on above: Prostate cancer (HCC ) (Primary Dx); PREETI (stress urinary incontinence), male Start: 11-18-2023 End: 11-18-2023 Telemedicine consultation with patient Katrina Warner APRN.BAND SPLICER Work Phone: [facility] Start: 11-16-2023 Telephone encounter [facility] & Comment on above: Returning Patient's Call Start: 11-12-2023 Telephone encounter [facility] & Comment on above: Returning Patient's Call Follow Up Phone Call Start: 11-10-2023 Telephone encounter [facility] & Start: 11-06-2023 End: 11-06-2023 ambulatory ALEK FATIMA Facility:[facility] Start: 11-05-2023 End: 11-06-2023 ambulatory [facility] Facility:[facility] Start: 11-03-2023 End: 11-03-2023 ambulatory [facility] Facility:[facility] Start: 11-03-2023 End: 11-03-2023 Patient encounter procedure John RUIZ Work Phone: Urology Comment on above: Pre-op testing (Prim arnold Dx); Prostate cancer (HCC); Prostate disease Start: 11-03-2023 End: 11-03-2023 Patient encounter status John RUIZ Work Phone: [facility] Work Phone: Start: 11-03-2023 End: 11-03-2023 [facility] Start: 11-03-2023 Encounter for other [facility]procedural examination [facility] Start: 11-03-2023 End: 11-03-2023 [facility] Main 9 Work Phone: Pre Anesthesia Comment on above: Pre-op evaluation (P rimary Dx); Malignant neoplasm of prostate (HCC); Cardiomyopathy in diseases classified elsewhere (HCC); Chronic ischemic heart disease; Chronic systolic (congestive) heart failure (HCC); Essential hypertension; Mixed hyperlipidemia; Paroxysmal atrial fibrillation (HCC) Start: 11-03-2023 End: 11-03-2023 Admission to [facility] Main 9 Work Phone: [facility] Start: 11-03-2023 End: 11-03-2023 Preprocedural examination done [facility] Main 9 Work Phone: [facility] Work Phone: Start: 11-03-2023 End: 11-03-2023 ambulatory ROXANA BAH Facility:[facility] Start: 11-03-2023 Encounter for other preprocedural examination MARYANNE POLANCOTAMAR [facility] Start: 11-03-2023 End: 11-03-2023 Subsequent hospital visit by physician Card Injection Molecular Imaging Comment on above: Malignant neoplasm o f prostate (HCC) [C61] Start: 10-14-2023 End: 10-14-2023 ambulatory ALEK FATIMA Facility:[facility] Start: 10-08-2023 Orders Only Casi kruse [...] Start: 09-14-2023 End: 09-14-2023 ambulatory Cesia Weeks Facility:[facility] Start: 09-14-2023 End: 09-14-2023 ambulatory MD Alek Fatima Work Phone: [facility] Work Phone: Start: 09-14-2023 End: 09-14-2023 Patient encounter procedure MD Alek Fatima Work Phone: [facility]-Pet Scan Work Phone: Start: 09-02-2023 Telephone encounter Cesia Weeks MD Work Phone: Cancer Appts Comment on above: Nm Pet Request Start: 08-31-2023 End: 08-31-2023 ambulatory NA ENGELER Facility:[facility] Start: 08-31-2023 End: 09-01-2023 ambulatory Cesia WEEKS Facility:[facility] Start: 08-31-2023 End: 08-31-2023 Patient encounter procedure [facility] Start: 08-25-2023 End: 08-26-2023 ambulatory Cesia WEEKS [facility] Work Phone: Start: 08-25-2023 End: 08-25-2023 Departed Referred MD Cesia Weeks Work Phone: [facility]-Lab Main [place] Work Phone: Start: 08-25-2023 End: 08-25-2023 Patient encounter procedure Cesia WEEKS [facility] Start: 08-10-2023 End: 08-11-2023 ambulatory Cesia WEEKS Facility:[facility] Start: 08-10-2023 End: 08-10-2023 Patient encounter procedure Cesia Hernández MICKY [facility] Start: 04-15-2023 ambulatory Cesia WEEKS Facility :[facility] Start: 01-02-2023 End: 01-02-2023 ambulatory AIMEE CLEMENT [facility] Start: 05-26-2022 End: 05-27-[address] ALEK FATIMA Facility:[facility] Start: 07-03-2021 Encounter for preprocedural laboratory examination DR ALEK FATIMA [facility] Start: 07-01-2021 End: 07-30-[address] ALEK FATIMA Facility:[facility] Start: 06-26-2021 End: 06-27-2021 ambulatory ALEK FATIMA [facility] Start: 06-26-2021 End: 06-27-2021 ambulatory CARYL ACEVEDO [facility] Start: 06-26-2021 End: 06-26-2021 Evaluation and management of inpatient [facility] [address] [place] [address] Start: 06-26-2021 End: 06-26-2021 Subsequent hospital visit by physician Nighat [address] [place] [address] Comment on above: Pain Start: 06-24-2021 End: 06-24-[address] ALEK FATIMA Facility:[facility] Start: 06-24-2021 End: 06-24-2021 Encounter for preprocedural laboratory examination DR ALEK FATIMA Facility:[facility] Start: 06-03-2021 End: 06-03-2021 Documentation procedure Yohan Johnson MD Work Phone: [facility] Internal Medicine Virtual Comment on above: Pre-op Exam Start: 01-28-2021 End: 01-29-2021 ambulatory ADRIANA HUFF Facility:[facility] Procedures Date Procedure Procedure Detail Performing Clinician Start: 06-23-2024 Blood count complete auto&auto difrntl wbc G Jewel Kamara MD Work Phone: Start: 11-03-2023 Echocardiography NA ENG ELER Start: 11-03-2023 Urnls dip stick/tabl et reagent auto microscopy Bulk Order Provider Start: 11-03-2023 Antibody screen NA JOSE ELIUD Comment on above: Order Comment: Speci men Type: BLOOD SPECIMENOrdering Facility: [facility] Address: [address] [place] [address] Performed By: #### T [id number] ####CC MAIN BLOOD BANKCLIA [id number] LEW [id number] [address] [place] Start: 11-03-2023 Myocardial [...] an tigen measurement Prostate Cancer Screening Discussion [facility] Start: 03-31-2029 Prostate specific an tigen measurement Prostate Cancer Screening Discussion [facility] Start: 12-24-2028 Prostate specific an tigen measurement Prostate Cancer Screening Discussion [facility] Start: 11-05-2026 Diabetes Screening Diabetes Screenin g [facility] Start: 11-02-2026 Diabetes Screening Diabetes Screenin g [facility] Start: 03-01-2025 End: 03-01-2025 Patient encounter procedure 03/01/2025 4:00 PM EDT Office Visit [facility] [address] [place] [address] Viral Plata MD [address] [place] [address] [facility] Start: 09-15-2024 End: 09-15-2024 ambulatory 09/15/2024 7:30 AM EST [facility] [address] [address] Katrina Warner, BENEFITS MANAGER.BAND SPLICER [address] [place] [id number] f/u virtual visit in 3 months. Urology Comment on above: f/u virtual visit in 3 months. Start: 08-22-2024 End: 11-21-2024 Prostate specific Ag [Mass/volume] in Serum or Plasma PROSTATE-SPECIFIC ANTIGEN DIAGNOSTIC Lab Routine Malignant neoplasm of prostate (HCC) Expected: 08/22/2024, Expires: 11/21/2024 [facility] Work Phone: Comment on above: Expected: 08/22/2024 , Expires: 11/21/2024 Start: 08-05-2024 End: 08-05-2024 Patient encounter procedure Radiation Oncology Comment on above: Prostate-Boost Prostate Bed-Boost Start: 08-04-2024 End: 08-04-2024 Patient encounter procedure Radiation Oncology Comment on above: Prostate-Boost Prostate Bed-Boost Start: 08-02-2024 End: 08-02-2024 Patient encounter procedure Radiation Oncology Comment on above: Prostate-Boost Prostate Bed-Boost Start: 08-01-2024 End: 08-01-2024 Patient encounter procedure Radiation Oncology Comment on above: [facility]: [facility] Start: 08-01-2024 End: 08-01-2024 Patient encounter procedure Radiation Oncology Comment on above: Prostate-Boost Location: [facility] Prostate Bed-Boost Start: 07-29-2024 End: 07-29-2024 Patient encounter procedure 07/29/2024 3:45 PM EST Appointment Radiation Oncology [address] [place] [address] [place] [address] Prostate-Boost Radiation Oncology Comment on above: Prostate-Boost Start: 07-29-2024 End: 07-29-2024 Patient encounter procedure 07/29/2024 7:45 AM EST Appointment Radiation Oncology [address] [place] [address] Prostate Bed-Boost Radiation Oncology Comment on above: Prostate Bed-Boost Start: 07-28-2024 End: 07-28-2024 Patient encounter procedure Radiation Oncology Comment on above: Prostate-Boost Prostate Bed-Boost-- remind pt 7:45 tomorrow Start: 07-26-2024 End: 07-26-2024 Patient encounter procedure Radiation Oncology Comment on above: Prostate-Boost Prostate Bed-Boost Start: 07-25-2024 End: 07-25-2024 Patient encounter procedure Radiation Oncology Comment on above: Prostate-Boost Location: [facility] Start: 07-22-2024 End: 07-22-2024 Patient encounter procedure 07/22/2024 3:45 PM EST Appointment Radiation Oncology [address] [place] [address] Prostate-Boost Radiation Oncology Comment on above: Prostate-Boost Start: 07-21-2024 End: 07-21-2024 Patient encounter procedure 07/21/2024 3:45 PM EST Appointment Radiation Oncology [address] [place] [address] Prostate-Boost Radiation Oncology Comment on above: Prostate-Boost Start: 07-21-2024 End: 10-20-2024 UA DIP, URINE (POC) UA DIP, URINE (POC) Lab Today Dysuria Expected: 07/21/2024, Expires: 10/20/2024 [facility] Work Phone: Comment on above: Expected: 07/21/2024 , Expires: 10/20/2024 Start: 07-20-2024 End: 07-20-2024 Patient encounter procedure 07/20/2024 3:45 PM EST Appointment Radiation Oncology [address] [place] [address] Prostate-Boost Radiation Oncology Comment on above: Prostate-Boost Start: 07-19-2024 End: 07-19-2024 Patient encounter procedure 07/19/2024 3:45 PM EST Appointment Radiation Oncology [address] [place] [address] Prostate Radiation Oncology Comment on above: Prostate Start: 07-18-2024 End: 07-18-2024 Patient encounter procedure Radiation Oncology Comment on above: Prostate Location: [facility] Start: 07-15-2024 End: 07-15-2024 Patient encounter procedure 07/15/2024 3:45 PM EST Appointment Radiation Oncology [address] [place] [address] Prostate Radiation Oncology Comment on above: Prostate Start: 07-14-2024 End: 07-14-2024 Patient encounter procedure 07/14/2024 3:45 PM EST Appointment Radiation Oncology [address] [place] [address] Prostate Radiation Oncology Comment on above: Prostate Start: 07-13-2024 End: 07-13-2024 Patient encounter procedure 07/13/2024 3:45 PM EST Appointment Radiation Oncology [address] [place] [address] Prostate Radiation Oncology Comment on above: Prostate Start: 07-12-2024 End: 07-12-2024 Patient encounter procedure 07/12/2024 3:45 PM EST Appointment Radiation Oncology [address] [place] [address] Prostate Radiation Oncology Comment on above: Prostate Start: 07-11-2024 End: 07-11-2024 Patient encounter procedure Radiation Oncology Comment on above: Prostate Location: [facility] Start: 07-08-2024 End: 07-08-2024 Patient encounter procedure 07/08/2024 3:45 PM EST Appointment Radiation Oncology [address] [place] [address] Prostate Radiation Oncology Comment on above: Prostate Start: 07-07-2024 End: 07-07-2024 Patient encounter procedure 07/07/2024 3:45 PM EST Appointment Radiation Oncology [address] [place] [address] Prostate Radiation Oncology Comment on above: Prostate Start: 07-06-2024 End: 07-06-2024 Patient encounter procedure 07/06/2024 3:45 PM EST Appointment Radiation Oncology [address] [place] [address] Prostate Radiation Oncology Comment on above: Prostate Start: 07-05-2024 End: 07-05-2024 Patient encounter procedure 07/05/2024 3:45 PM EST Appointment Radiation Oncology [address] [place] [address] Prostate Radiation Oncology Comment on above: Prostate Start: 07-04-2024 End: 07-04-2024 Patient encounter procedure Radiation Oncology Comment on above: Prostate Location: [facility] Start: 06-29-2024 End: 06-29-2024 Patient encounter procedure 06/29/2024 2:00 PM EST Appointment Radiation Oncology [address] [place] [address] Prostate Radiation Oncology Comment on above: Prostate Start: 06-28-2024 End: 06-28-2024 Patient encounter procedure 06/28/2024 3:45 PM EST Appointment Radiation Oncology [address] [place] [address] Prostate Radiation Oncology Comment on above: Prostate Start: 06-27-2024 End: 06-27-2024 Patient encounter procedure Radiation Oncology Comment on above: Prostate Location: [facility] Start: 06-27-2024 Diabetes Screening Diabetes Screenin g [facility] Start: 06-26-2024 End: 06-26-2024 Patient encounter procedure 06/26/2024 8:15 AM EST Appointment Radiation Oncology [address] [place] [address] Prostate Radiation Oncology Comment on above: Prostate Start: 06-24-2024 End: 06-24-2024 Patient encounter procedure 06/24/2024 3:45 PM EST Appointment Radiation Oncology [address] [place] [address] Prostate Radiation Oncology Comment on above: Prostate Start: 06-23-2024 End: 06-23-2024 Patient encounter procedure Radiation Oncology Comment on above: Prostate Rad lab Start: 06-23-2024 End: 09-22-2024 CBC W Auto Differential panel - Blood COMPLETE BLOOD COUNT AND DIFFERENTIAL Lab Routine Prostate cancer (HCC) Expected: 06/23/2024, Expires: 09/22/2024 [facility] Work Phone: Comment on above: Expected: 06/23/2024 , Expires: 09/22/2024 Start: 06-22-2024 End: 06-22-2024 Patient encounter procedure 06/22/2024 3:45 PM EST Appointment Radiation Oncology [address] [place] [address] Prostate Radiation Oncology Comment on above: Prostate Start: 06-21-2024 End: 06-21-2024 Patient encounter procedure 06/21/2024 3:45 PM EST Appointment Radiation Oncology [address] [address] Prostate Radiation Oncology Comment on above: Prostate Start: 06-20-2024 End: 06-20-2024 Patient encounter procedure Radiation Oncology Comment on above: Prostate Location: [facility] Start: 06-17-2024 End: 06-17-2024 Patient encounter procedure 06/17/2024 3:45 PM EST Appointment Radiation Oncology [address] [place] [address] Prostate Radiation Oncology Comment on above: Prostate Start: 06-16-2024 End: 06-16-2024 Patient encounter procedure 06/16/2024 3:45 PM EST Appointment Radiation Oncology [address] [place] [address] Prostate Radiation Oncology Comment on above: Prostate Start: 06-15-2024 End: 06-15-2024 Patient encounter procedure Radiation Oncology Comment on above: NEW START PROSTATE B ED Prostate bed- needs early or late Start: 06-06-2024 End: 06-06-2024 Patient encounter procedure Radiation Oncology Comment on above: Eligard Injection Follow up SIM treating pelvis MIKAL Start: 05-20-2024 End: 08-19-2024 CREATININE BLD CREATININE BLD Lab Routine Malignant neoplasm of prostate (HCC) Expected: 05/20/2024 (Approximate), Expires: 08/19/2024 [facility] Work Phone: Comment on above: Expected: 05/20/2024 (Approximate), Expires: 08/19/2024 Start: 05-19-2024 End: 05-19-2024 Patient encounter procedure 05/19/2024 11:30 AM EDT Office Visit Radiation Oncology [address] [place] [address] Arnulfo Kamara MD [address] [place] [address] SIM treating pelvis MIKAL Radiation Oncology Comment on above: SIM treating pelvis MIKAL Start: 05-19-2024 End: 05-19-2024 Patient encounter procedure Radiation Oncology Comment on above: Follow up after PET Sim Consent and Elig alyssa Injection Start: 05-12-2024 End: 05-12-2024 Patient encounter procedure 05/12/2024 1:30 PM EDT Appointment Radiology Pet CT [address] [place] [address] Comment on above: PSMA PET Start: 05-07-2024 End: 08-06-2024 Prostate specific Ag [Mass/volume] in Serum or Plasma PROSTATE-SPECIFIC ANTIGEN DIAGNOSTIC Lab Routine History of prostate cancer Rising PSA following treatment for malignant neoplasm of prostate Expected: 05/07/2024 (Approximate), Expires: 08/06/2024 [facility] Work Phone: Comment on above: Expected: 05/07/2024 (Approximate), Expires: 08/06/2024 Start: 04-20-2024 End: 04-20-2024 Patient encounter procedure 04/20/2024 4:05 PM EDT Office Visit [facility] [address] [place] [address] Viral Plata MD [address] [place] [address] Arrived [facility] Comment on above: Arrived Start: 04-03-2024 Covid-19 Vaccine ( season) Covid-19 Vaccine ( season) [facility] Start: 04-03-2024 Covid-19 Vaccine ( season) Covid-19 Vaccine ( season) [facility] Start: 04-03-2024 Influenza vaccination [facility] Start: 03-31-2024 End: 06-30-2024 Prostate specific Ag [Mass/volume] in Serum or Plasma PROSTATE-SPECIFIC ANTIGEN DIAGNOSTIC Lab Routine History of prostate cancer Expected: 03/31/2024 (Approximate), Expires: 06/30/2024 [facility] Work Phone: Comment on above: Expected: 03/31/2024 (Approximate), Expires: 06/30/2024 Start: 01-01-2024 End: 04-01-2024 Prostate specific Ag [Mass/volume] in Serum or Plasma PROSTATE-SPECIFIC ANTIGEN DIAGNOSTIC Lab Routine Prostate cancer (HCC) Expected: 01/01/2024 (Approximate), Expires: 04/01/2024 [facility] Work Phone: Comment on above: Expected: 01/01/2024 (Approximate), Expires: 04/01/2024 Start: 11-23-2023 Advance Directive Discussion Advance Directive Discussion [facility] Start: 11-23-2023 Pneumococcal Vaccine : 65+ Years (1 of 1 - PCV) Pneumococcal Vaccine: 65+ Years (1 of 1 - PCV) [facility] Start: 08-03-2023 Behavioral Health Screening Behavioral Health Screening [facility] Start: 08-03-2023 Depression Assessment Depression Ass essment [facility] Start: 04-03-2023 Covid-19 Vaccine ( season) Covid-19 Vaccine ( season) [facility] Start: 04-03-2023 Influenza vaccination Influenza Vacc ine (#1) [facility] Start: 06-27-2022 Hypertension/CHF/CAD Annual BMP Blood Test Hypertension/CHF/CAD Annual BMP Blood Test [facility] Start: 06-03-2022 Hypertension/CHF/CAD Annual BMP Blood Test Hypertension/CHF/CAD Annual BMP Blood Test [facility] Start: 06-26-2021 End: 06-26-2021 Admission to same day surgery center 06/26/2021 Surgery Operating Room Caryl Acevedo MD [address] [facility] [address] [place] [address] ARTHROPLASTY HIP TOTAL RIGHT ANTERIOR [91884 (CPT )] [facility] Comment on above: ARTHROPLASTY HIP TOT AL RIGHT ANTERIOR [23544 (CPT )] Start: 06-26-2021 End: 06-26-2021 Arthrp acetblr/prox fem prostc agrft/algrft ARTHROPLASTY HIP TOTAL ANTERIOR Unilateral primary osteoarthritis, right hip 06/26/2021 6:30 AM [facility]IS N[facility]AE[facility] Main OR Start: 06-26-2021 Subsequent hospital visit by physician 06/26/2021 Hospital Encounter Operating Room Sue Burr Varnell Start: 05-03-2021 COVID-19 Vaccine (3 - Booster for Pfizer series) COVID-19 Vaccine (3 - Booster for Pfizer series) [facility] Start: 04-27-2021 Adolescent depressio n screening assessment Depression Screening [facility] Start: 04-27-2021 Depression Screening Depression Scre ening [facility] Start: 04-27-2021 Hepatitis C screening Hepatitis C Sc reening [facility] Start: 04-27-2021 HIV screening HIV Screening [facility] Start: 04-27-2021 Lipid panel Cholesterol Sc reening (Lipid Panel) [facility] Start: 04-27-2021 Screening for malign ant neoplasm of colon Colorectal Cancer Screening: Colonoscopy [facility] Start: 04-27-2021 Social Influencers o f Health Screening Social Influencers of Health Screening [facility] Start: 04-03-2021 Influenza vaccination Influenza Vacc ine (#1) [facility] Start: 2018 RSV Vaccine (1 - 1-d ose 60+ series) RSV Vaccine (1 - 1-dose 60+ series) [facility] Start: 2018 RSV Vaccine (1 - Ris k 60-74 years 1-dose series) RSV Vaccine (1 - Risk 60-74 years 1-dose series) [facility] Start: 2013 Prostate specific an tigen measurement Prostate Cancer Screening Discussion [facility] Start: 2008 Shingrix Vaccine (1 of 2) Sky grix Vaccine (1 of 2) [facility] Start: 2008 Zoster Vaccines (1 of 2) Zoste r Vaccines (1 of 2) [facility] Start: 11-23-2003 Screening for malign ant neoplasm of colon [facility] Start: 1993 Lipid panel Lipid Screening [facility] Start: 1977 DTaP,Tdap,and Td Vac cines (1 - Tdap) DTaP,Tdap,and Td Vaccines (1 - Tdap) [facility] Start: 1977 Pneumococcal Vaccine : 50+ (1 of 2 - PCV) Pneumococcal Vaccine: 50+ (1 of 2 - PCV) [facility] Start: 1977 Urine microalbumin profile DTa P,Tdap,Td Vaccine (1 - Tdap) [facility] Start: 1976 Annual PCP Team Enforcement Manager lianne Disease Visit Annual PCP Team Chronic Disease Visit [facility] Start: 1976 Anxiety Screening Anxiety Screening [facility] Start: 1976 BP Controlled (<130/80) BP Con trolled (<130/80) [facility] Start: 1976 Depression Screening Depression Scre ening [facility] Start: 1976 Hepatitis B surface antibody level LDL Cholesterol [facility] Start: 1976 Hepatitis C screening Hepatitis C Sc reening [facility] Start: 1976 HIV screening HIV Screening [facility] Start: 1976 Spirometry Spirometry [facility] Start: 1970 COVID-19 Vaccine (1) COVID-19 Vaccin e (1) [facility] Start: 1964 Pneumococcal vaccination Pneum ococcal Vaccine (1 of 2 - PCV) [facility] Start: 1964 Pneumococcal Vaccine : 65+ (1 of 2 - PCV) Pneumococcal Vaccine: 65+ (1 of 2 - PCV) [facility] Start: 1964 Pneumococcal Vaccine : Pediatrics (0 to 5 Years) and At-Risk Patients (6 to 64 Years) (1 of 2 - PPSV23) Pneumococcal Vaccine: Pediatrics (0 to 5 Years) and At-Risk Patients (6 to 64 Years) (1 of 2 - PPSV23) [facility] Start: 1958 Screening for malign ant neoplasm of colon [facility] Bacteria identified in Urine by Culture URINE CULTURE Microbiology Routine Prostate cancer (HCC) Prostate disease Ordered: 11/03/2023 [facility] Work Phone: Comment on above: Ordered: 11/03/2023 CT Guidance for radi ation treatment of Unspecified body region CT SIM PLANNING RADIATION ONCOLOGY Radiology Routine History of prostate cancer Ordered: 05/19/2024 [facility] Work Phone: Comment on above: Ordered: 05/19/2024 CT Guidance for radi ation treatment of Unspecified body region CT SIM PLANNING RADIATION ONCOLOGY Radiology Routine Prostate cancer (HCC) Ordered: 06/06/2024 [facility] Work Phone: Comment on above: Ordered: 06/06/2024 End: 10-07-2024 Echocardiography ECHO Cardiology Routine Congestive heart failure, unspecified HF chronicity, unspecified heart failure type (HCC) 1 Occurrences starting 10/08/2023 until 10/07/2024 [facility] Work Phone: Comment on above: 1 Occurrences starti ng 10/08/2023 until 10/07/2024 End: 06-18-2025 MR Cervical spine WO and W contrast IV MRI CERVICAL SPINE WO/W IVCON Radiology Routine History of prostate cancer 1 Occurrences starting 05/19/2024 until 06/18/2025 [facility] Comment on above: 1 Occurrences starti ng 05/19/2024 until 06/18/2025 End: 11-05-2024 NM Heart Perfusion W stress and W radionuclide IV NM CARDIAC PERF STRESS/PHARM Radiology Routine Malignant neoplasm of prostate (HCC) 1 Occurrences starting 10/07/2023 until 11/05/2024 [facility] Work Phone: Comment on above: 1 Occurrences starti ng 10/07/2023 until 11/05/2024 End: 05-28-2025 PET+CT Guidance for localization of tumor of Whole body-- W 18F-FDG IV NM PET/CT PROSTATE WHOLE BODY IMAGING Radiology Routine Rising PSA following treatment for malignant neoplasm of prostate 1 Occurrences starting 04/28/2024 until 05/28/2025 [facility] Work Phone: Comment on above: 1 Occurrences starti ng 04/28/2024 until 05/28/2025 PET+CT Guidance for localization of tumor of Whole body-- W 18F-FDG IV NM PET/CT PROSTATE WHOLE BODY IMAGING Radiology Routine Rising PSA following treatment for malignant neoplasm of prostate 05/12/2024 2:55 PM EDT [facility] Work Phone: End: 06-22-2025 XR Facial bones 3 Views XR FACIAL BONES 3V AP/LAT/WEEKS Radiology Routine Prostate cancer (HCC) 1 Occurrences starting 05/23/2024 until 06/22/2025 [facility] Work Phone: Comment on above: 1 Occurrences starti ng 05/23/2024 until 06/22/2025 [facility] JENNY [facility] Immunizations Immunization Date Immunization Notes Care Provider Loc dutta 11-01-2020 SARS-CoV-2 (COVID-19 ) mRNA BNT-162b2 vax Cesia WEEKS [facility] 10-11-2020 SARS-CoV-2 (COVID-19 ) mRNA BNT-162b2 vax Cesia WEEKS [facility] NEGATED: Highlighted row has not occurred!08-25-2023 influenza virus vaccine, unspecified formulation Cesia WEEKS [facility] Joseph Payers Date Payer Category Payer Medicare [id number] 2023 Medicare [id number] 2023 Self-pay [id number] 2021 Unknown [id number] 2021 Unknown [id number] 2018 Unknown [employer] [id number] 2018-Present [address] [place] [address] [id number] 1959 Self-pay [id number] 1959 Unknown [id number] 1958 Unknown [id number] 1958 Unknown [id number] [id number] 1958 Unknown [id number] [id number] 1958 Unknown [id number] [id number] 1958 Unknown [id number] [id number] 1958 Unknown [id number] [id number] 1958 Unknown [id number] [id number] 1958 Unknown [id number] [id number] 1958 Unknown [id number] [id number] 1958 Unknown [id number] [id number] 1958 Unknown [id number] [id number] 1958 Unknown [id number] [id number] Unknown [id number] [id number] Unknown [id number] Social History Date Type Detail Facility Start: 03-01-2024 Tobacco smoking stat [facility] Unknown if ever smoked [employer] Work Phone: Start: 1960 Sex Assigned At Not on file T [facility] Start: 06-25-2021 End: 11-03-2023 Tobacco smoking status WAIS Never smoker [facility] Start: 06-25-2021 End: 07-19-2024 Alcohol intake Lifetime non-drinker (finding) [facility] Start: 06-25-2021 History SDOH Alcohol Frequency 1 [facility] Exposure to SARS-CoV -2 (event) Not sure [facility] Tobacco smoking status Never [facility] Start: 11-03-2023 End: 04-28-2024 Sex Assigned At Male [facility] Start: 1960 Sex Assigned At Male F [facility] Start: 11-03-2023 Tobacco use and exposure Smokeless tobacco non-user [facility] Start: 11-03-2023 End: 04-28-2024 History of Social function [facility] Medical Equipment Procedure Code Equipment Code Equipment Origin al Text Equipment Identifier Dates Hip G7 Pps Ltd A cet Shell 56f - Sna - [id number] [id number], [id number] FDA Start: 06-26-2021 Liner G7 Neutral Ve 36mm F - Sna - [id number])[id number], [id number] FDA Start: 06-26-2021 Complete Ho Collarless Sz 7.5 - Sna - [id number], [id number] FDA Start: 06-26-2021 Hip Hd Blx D Fem 36mm +7mm - Sna - [id number], [id number] FDA Start: 06-26-2021 Functional Status Date Assessment Result Facility 08-31-2023 Functional Status N/A [facility] 08-25-2023 Functional Status N/A [facility] 08-10-2023 Functional Status N/A [facility] Clinical Notes 06-03-2021 to 08-01-2024 Arnulfo Kamara MD - 08/01/2024 8:35 AM Arnulfo Nathan MD - 07/25/2024 3:41 PM Mil Waite MD - 07/19/2024 9:05 AM Arnulfo Nathan MD - 07/11/2024 4:28 PM ESTLaboratory Note Date & Type Note Facility 08-01-2024 Note [facility] 08-01-2024 History of Present illness Narrative Radiation Oncology - On Treatment Review (OTR) Note PATIENT NAME: Sukhdeep Gamino PATIENT DIAGNOSIS: Prostate adenocarcinoma, initial PSA 7.9, biopsy [place] score 4 + 5 = 9 (grade group 5), clinical stage T2c, N0, M0, status post robotic radical prostatectomy and bilateral pelvic lymph node dissection for 11/05/2023, Christine 8 (4+4) pT3a pN0, with detectable and rising post prostatectomy PSA, PSA 04/26/2024 0.18. COURSE: salvage and post-operative Current dose: 6400 cGy in 32 fx Planned dose: 7000 cGy in 35 fx SUBJECTIVE: Doing well. No new issues. PHYSICAL EXAM: There were no vitals filed for this visit. KPS: 100 General Appearance: Alert and oriented. No acute distress. IMAGING/LAB RESULTS: Hemoglobin (g/dL) Date Value 06/23/2024 13.3 Hematocrit (%) Date Value 06/23/2024 39.4 WBC (k/uL) Date Value 06/23/2024 7.00 Platelet Count (k/uL) Date Value 06/23/2024 300 Recent UA without hematuria or evidence of infection TOXICITY ASSESSMENT (CTC v4.0): Fatigue:grade 1 Radiation Dermatitis: grade 0 - No symptoms Diarrhea:grade 1 Proctitis: grade 0 - No symptoms Urinary frequency: grade 1 dysuria: grade 0 - No symptoms Urinary incontinence: grade 0 (No symptoms) Urinary retention: grade 0 - No symptoms Treatment chart checked: Yes Patient treatment site reviewed and verified:Yes Port films reviewed and current:Yes Medications started: None ASSESSMENT/PLAN: Patient doing well. He will finish on Thursday. Follow-up care discussed. Chart and imaging reviewed. Continue radiation as outlined. Arnulfo Kamara MD documented in this encounter [facility] 07-25-2024 Note [facility] 07-25-2024 History of Present illness Narrative Radiation Oncology - On Treatment Review (OTR) Note PATIENT NAME: Sukhdeep Gamino PATIENT DIAGNOSIS: Prostate adenocarcinoma, initial PSA 7.9, biopsy [place] score 4 + 5 = 9 (grade group 5), clinical stage T2c, N0, M0, status post robotic radical prostatectomy and bilateral pelvic lymph node dissection for 11/05/2023, [place] 8 (4+4) pT3a pN0, with detectable and rising post prostatectomy PSA, PSA 04/26/2024 0.18. COURSE: salvage and post-operative Current dose: 5600 cGy in 28 fx Planned dose: 7000 cGy in 35 fx SUBJECTIVE: Doing well. No further dark dark urine or suspicion for hematuria. No dysuria. Mild diarrhea. PHYSICAL EXAM: 07/25/24 1536 BP: 144/96 Pulse: 107 Resp: 18 Temp: (!) 35.9 C (96.7 F) SpO2: 100% Weight: 88.5 kg (195 lb 1.7 oz) KPS: 100 General Appearance: Alert and oriented. No acute distress. IMAGING/LAB RESULTS: Hemoglobin (g/dL) Date Value 06/23/2024 13.3 Hematocrit (%) Date Value 06/23/2024 39.4 WBC (k/uL) Date Value 06/23/2024 7.00 Platelet Count (k/uL) Date Value 06/23/2024 300 Recent UA without hematuria or evidence of infection TOXICITY ASSESSMENT (CTC v4.0): Fatigue:grade 1 Radiation Dermatitis: grade 0 - No symptoms Diarrhea:grade 1 Proctitis: grade 0 - No symptoms Urinary frequency: grade 1 dysuria: grade 0 - No symptoms Urinary incontinence: grade 0 (No symptoms) Urinary retention: grade 0 - No symptoms Treatment chart checked: Yes Patient treatment site reviewed and verified:Yes Port films reviewed and current:Yes Medications started: None ASSESSMENT/PLAN: Patient doing well. Chart and imaging reviewed. Continue radiation as outlined. Arnulfo Kamara MD documented in this encounter [facility] 07-19-2024 Note [facility] 07-19-2024 History of Present illness Narrative Radiation Oncology - On Treatment Review (OTR) Note PATIENT NAME: Sukhdeep Gamino PATIENT DIAGNOSIS: Prostate adenocarcinoma, initial PSA 7.9, biopsy [place] score 4 + 5 = 9 (grade group 5), clinical stage T2c, N0, M0, status post robotic radical prostatectomy and bilateral pelvic lymph node dissection for 11/05/2023, [place] 8 (4+4) pT3a pN0, with detectable and rising post prostatectomy PSA, PSA 04/26/2024 0.18. COURSE: salvage and post-operative Current dose: 4800 cGy in 24 fx Planned dose: 7000 cGy in 35 fx Mil Crum MD documented in this encounter [facility] 07-11-2024 Note [facility] 07-11-2024 History of Present illness Narrative Radiation Oncology - On Treatment Review (OTR) Note PATIENT NAME: Sukhdeep Gamino PATIENT DIAGNOSIS: Prostate adenocarcinoma, initial PSA 7.9, biopsy Christine score 4 + 5 = 9 (grade group 5), clinical stage T2c, N0, M0, status post robotic radical prostatectomy and bilateral pelvic lymph node dissection for 11/05/2023, [place] 8 (4+4) pT3a pN0, with detectable and rising post prostatectomy PSA, PSA 04/26/2024 0.18. COURSE: salvage and post-operative Current dose: 3600 cGy in 18 fx Planned dose: 7000 cGy in 35 fx SUBJECTIVE: Doing well. Mild bowel changes better with modified diet. Mild taste change slightly metallic. PHYSICAL EXAM: 07/11/24 1631 BP: 155/91 Pulse: 86 Resp: 16 Temp: 36.3 C (97.4 F) SpO2: 100% Weight: 86.4 kg (190 lb 7.6 oz) KPS: 100 General Appearance: Alert and oriented. No acute distress. IMAGING/LAB RESULTS: Hemoglobin (g/dL) Date Value 06/23/2024 13.3 Hematocrit (%) Date Value 06/23/2024 39.4 WBC (k/uL) Date Value 06/23/2024 7.00 Platelet Count (k/uL) Date Value 06/23/2024 300 TOXICITY ASSESSMENT (CTC v4.0): Fatigue:grade 1 Radiation Dermatitis: grade 0 - No symptoms Diarrhea:grade 1 Proctitis: grade 0 - No symptoms Urinary frequency: grade 0 - No symptoms Dysuria: grade 0 - No symptoms Urinary incontinence: grade 0 (No symptoms) Urinary retention: grade 0 - No symptoms Treatment chart checked: Yes Patient treatment site reviewed and verified:Yes Port films reviewed and current:Yes Medications started: None ASSESSMENT/PLAN: Patient doing well. Chart and imaging reviewed. Continue radiation as outlined. Arnulfo Kamara MD documented in this encounter [facility] 07-04-2024 Note [facility] 07-04-2024 History of Present illness Narrative Radiation Oncology - On Treatment Review (OTR) Note PATIENT NAME: Sukhdeep Gamino PATIENT DIAGNOSIS: Prostate adenocarcinoma, initial PSA 7.9, biopsy [place] score 4 + 5 = 9 (grade group 5), clinical stage T2c, N0, M0, status post robotic radical prostatectomy and bilateral pelvic lymph node dissection for 11/05/2023, Christine 8 (4+4) pT3a pN0, with detectable and rising post prostatectomy PSA, PSA 04/26/2024 0.18. COURSE: salvage and post-operative Current dose: 2600 cGy in 13 fx Planned dose: 7000 cGy in 35 fx SUBJECTIVE: Doing well. PHYSICAL EXAM: 07/04/24 1601 BP: 133/95 Pulse: 87 Resp: 18 Temp: 36.8 C (98.3 F) SpO2: 98% Weight: 86 kg (189 lb 9.5 oz) KPS: 100 General Appearance: Alert and oriented. No acute distress. IMAGING/LAB RESULTS: Hemoglobin (g/dL) Date Value 06/23/2024 13.3 Hematocrit (%) Date Value 06/23/2024 39.4 WBC (k/uL) Date Value 06/23/2024 7.00 Platelet Count (k/uL) Date Value 06/23/2024 300 TOXICITY ASSESSMENT (CTC v4.0): Fatigue:grade 0 - No symptoms Radiation Dermatitis: grade 0 - No symptoms Diarrhea:grade 0 - No symptoms Proctitis: grade 0 - No symptoms Urinary frequency: grade 0 - No symptoms Dysuria: grade 0 - No symptoms Urinary incontinence: grade 0 (No symptoms) Urinary retention: grade 0 - No symptoms Treatment chart checked: Yes Patient treatment site reviewed and verified:Yes Port films reviewed and current:Yes Medications started: None ASSESSMENT/PLAN: Patient doing well. Chart and imaging reviewed. Continue radiation as outlined. Arnulfo Kamara MD documented in this encounter [facility] 06-27-2024 Note [facility] 06-27-2024 History of Present illness Narrative Radiation Oncology - On Treatment Review (OTR) Note PATIENT NAME: Sukhdeep Gamino PATIENT DIAGNOSIS: Prostate adenocarcinoma, initial PSA 7.9, biopsy [place] score 4 + 5 = 9 (grade group 5), clinical stage T2c, N0, M0, status post robotic radical prostatectomy and bilateral pelvic lymph node dissection for 11/05/2023, Christine 8 (4+4) pT3a pN0, with detectable and rising post prostatectomy PSA, PSA 04/26/2024 0.18. COURSE: salvage and post-operative Current dose: 2000 cGy in 10 fx Planned dose: 7000 cGy in 35 fx SUBJECTIVE: Doing well. PHYSICAL EXAM: 06/27/24 1556 BP: 129/87 Pulse: 102 Resp: 16 Temp: 36.4 C (97.6 F) SpO2: 100% Weight: 86.5 kg (190 lb 11.2 oz) KPS: 100 General Appearance: Alert and oriented. No acute distress. IMAGING/LAB RESULTS: Hemoglobin (g/dL) Date Value 06/23/2024 13.3 Hematocrit (%) Date Value 06/23/2024 39.4 WBC (k/uL) Date Value 06/23/2024 7.00 Platelet Count (k/uL) Date Value 06/23/2024 300 TOXICITY ASSESSMENT (CTC v4.0): Fatigue:grade 0 - No symptoms Radiation Dermatitis: grade 0 - No symptoms Diarrhea:grade 0 - No symptoms Proctitis: grade 0 - No symptoms Urinary frequency: grade 0 - No symptoms Dysuria: grade 0 - No symptoms Urinary incontinence: grade 0 (No symptoms) Urinary retention: grade 0 - No symptoms Treatment chart checked: Yes Patient treatment site reviewed and verified:Yes Port films reviewed and current:Yes Medications started: None ASSESSMENT/PLAN: Patient doing well. Chart and imaging reviewed. Continue radiation as outlined. Arnulfo Kamara MD documented in this encounter [facility] 06-23-2024 Nurse Note Sukhdeep Gamino presents in office today for: Lab Draw only . Ordering Provider: Jewel Kamara M.D. Test (s) ordered: CBC Method for obtaining blood: Phlebotomy was performed, accessing right antecubital vein. Needle removed intact. Dressing secured. Patient denies discomfort, dizziness, light-headedness or weakness and left the department without assist. Ann Braswell LPN [facility] 06-23-2024 Nurse Note Sukhdeep Gamino presents in office today for: Lab Draw only . Ordering Provider: Jewel Kamara M.D. Test (s) ordered: CBC Method for obtaining blood: Phlebotomy was performed, accessing right antecubital vein. Needle removed intact. Dressing secured. Patient denies discomfort, dizziness, light-headedness or weakness and left the department without assist. Ann Braswell LPN documented in this encounter [facility] 06-20-2024 Note [facility] 06-20-2024 History of Present illness Narrative Radiation Oncology - On Treatment Review (OTR) Note PATIENT NAME: Sukhdeep Gamino PATIENT DIAGNOSIS: Prostate adenocarcinoma, initial PSA 7.9, biopsy Christine score 4 + 5 = 9 (grade group 5), clinical stage T2c, N0, M0, status post robotic radical prostatectomy and bilateral pelvic lymph node dissection for 11/05/2023, Christine 8 (4+4) pT3a pN0, with detectable and rising post prostatectomy PSA, PSA 04/26/2024 0.18. COURSE: salvage and post-operative Current dose: 800 cGy in 4 fx Planned dose: 7000 cGy in 35 fx SUBJECTIVE: Doing well. PHYSICAL EXAM: KPS: 100 General Appearance: Alert and oriented. No acute distress. IMAGING/LAB RESULTS: None TOXICITY ASSESSMENT (CTC v4.0): Fatigue:grade 0 - No symptoms Radiation Dermatitis: grade 0 - No symptoms Diarrhea:grade 0 - No symptoms Proctitis: grade 0 - No symptoms Urinary frequency: grade 0 - No symptoms Dysuria: grade 0 - No symptoms Urinary incontinence: grade 0 (No symptoms) Urinary retention: grade 0 - No symptoms Treatment chart checked: Yes Patient treatment site reviewed and verified:Yes Port films reviewed and current:Yes Medications started: None ASSESSMENT/PLAN: Patient doing well. Chart and imaging reviewed. Continue radiation as outlined. Arnulfo Kamara MD documented in this encounter [facility] 06-15-2024 Note [facility] 06-15-2024 History of Present illness Narrative Radiation Oncology - On Treatment Review (OTR) Note PATIENT NAME: Sukhdeep Gamino PATIENT DIAGNOSIS: Prostate adenocarcinoma, initial PSA 7.9, biopsy Christine score 4 + 5 = 9 (grade group 5), clinical stage T2c, N0, M0, status post robotic radical prostatectomy and bilateral pelvic lymph node dissection for 11/05/2023, [place] 8 (4+4) pT3a pN0, with detectable and rising post prostatectomy PSA, PSA 04/26/2024 0.18. COURSE: salvage and post-operative Current dose: 200 cGy in 1 fx Planned dose: 7000 cGy in 35 fx SUBJECTIVE: Here to start radiation, doing well. PHYSICAL EXAM: KPS: 100 General Appearance: Alert and oriented. No acute distress. IMAGING/LAB RESULTS: None TOXICITY ASSESSMENT (CTC v4.0): Fatigue:grade 0 - No symptoms Radiation Dermatitis: grade 0 - No symptoms Diarrhea:grade 0 - No symptoms Proctitis: grade 0 - No symptoms Urinary frequency: grade 0 - No symptoms Dysuria: grade 0 - No symptoms Urinary incontinence: grade 0 (No symptoms) Urinary retention: grade 0 - No symptoms Treatment chart checked: Yes Patient treatment site reviewed and verified:Yes Port films reviewed and current:Yes Medications started: None ASSESSMENT/PLAN: Patient starting radiation today. Plan of care and expectations again reviewed. Plan, MU calculations and qa report reviewed. Initial imaging including cone beam ct and verification reviewed and approved. First treatment given. Continue radiation as prescribed. Arnulfo Kamara MD documented in this encounter [facility] 06-13-2024 Telephone encounter Note CBC order pending your approval. Ann Braswell RN [facility] 06-13-2024 Miscellaneous Notes CBC order pending your approval. Ann Braswell RN documented in this encounter [facility] 06-07-2024 Telephone encounter Note Images from the original note were not included. Ambulatory Pharmacy Prior Authorization Note Provider Intervention Required?: No- Pharmacy completed on your behalf. Rx Plan: Other: [facility]: Orgovyx Cover My Meds Stein: N/A Determination: N/A Additional Information: Patient out of pocket cost: $1,001.72. No grants are open at this time for patient diagnosis. Patient would like to apply for free drug through the milk collector patient assistance program (application signed - awaiting MD signature) If moving forward with Orgovyx, we need to address Major DRUG/DRUG Interaction Orgovyx/Coreg: Also sig clarification is needed. Orgovyx is initially given with a 360 mg loading dose on Day 1, followed by 120 mg once daily. For questions relating to this submission, please contact [facility] at [phone] [facility] Work Phone: 06-07-2024 Miscellaneous Notes Images from the original note were not included. Ambulatory Pharmacy Prior Authorization Note Provider Intervention Required?: No- Pharmacy completed on your behalf. Rx Plan: Other: [facility]: Orgovyx Cover My Meds Stein: N/A Determination: N/A Additional Information: Patient out of pocket cost: $1,001.72. No grants are open at this time for patient diagnosis. Patient would like to apply for free drug through the milk collector patient assistance program (application signed - awaiting MD signature) If moving forward with Orgovyx, we need to address Major DRUG/DRUG Interaction Orgovyx/Coreg: Also sig clarification is needed. Orgovyx is initially given with a 360 mg loading dose on Day 1, followed by 120 mg once daily. For questions relating to this submission, please contact [facility] at [phone] documented in this encounter [facility] 06-06-2024 History of Present illness Narrative SUKHDEEP GAMINO [id number] 06/06/2024 [facility] Radiation Oncology Department SIMULATION NOTE DATE OF SIMULATION: 06/06/2024 THERAPIST: Cathy Berrios MACHINE: [employer] DIAGNOSIS: Malignant neoplasm of [id number] AREA: PROSTATE CONTRAST: None Consent in Epic: Yes PATIENT POSITION: Supine. FIXATION DEVICE: In order to achieve accurate and reproducible treatments, the patient is immobilized with orfit AIO A time-out was conducted and recorded by the therapist. CT scan was completed for target localization and planning. Field arrangement will be determined after plan has been completed. The patient is scheduled for a verification simulation on the treatment machine to ensure proper set-up and field arrangement is correct prior to the first treatment of primary and boost fernández if applicable. Patient education will be completed per nursing. Electronically Signed Jewel Kamara M.D. / CDT 44:54 PM documented in this encounter [facility] 06-06-2024 History of Present illness Narrative SUKHDEEP GAMINO [id number] 06/06/2024 [facility] Department of Radiation Oncology Treatment Planning Note For reasons stated in the consult note, Sukhdeep Gamino is a candidate for radiation therapy. Based on review and interpretation of the relevant diagnostic studies together with the exam findings, Sukhdeep Gamino was simulated on 06/06/2024 at which time the target volume and/or requisite fernández were delineated, as indicated in the simulation note, to be treated according to the prescription. The treatment target and organs at risk were contoured on the simulation scan using the fused MRI /. After reviewing multiple treatment plans with dosimetry, the best plan was approved to deliver the prescribed course of radiation to the target area using inverse planning to allow for the best isodose distribution, treating to the 97.1% isodose line with 10MV and 3 fernández. Custom MLC asym jaws for IMRT were the treatment devices used to shape/modify the beams. Limiting dose to normal tissue was confirmed upon review of the calculated dose volume histogram. IMRT planning was used because it best met the dose/volume constraints for the organs at risk for this patient, better than what could be achieved using conventional or 3D planning. The specific dose requirements for the PTV, organs at risk and dose-volume histograms are contained in this treatment plan and/or elsewhere in the medical record. A completed summary of this plan dated 06/14/2024 incorporated herein by reference includes dose, beam arrangements, energy, blocking, isodose distribution, and/or ports and DVH. Electronically Signed Jewel Kamara M.D. 1:49 AM documented in this encounter [facility] 06-06-2024 Note [facility] 06-06-2024 Note [facility] 05-23-2024 Telephone encounter Note Order faxed to [facility]. Roxy Sarabia RN [facility] 05-23-2024 Miscellaneous Notes Order faxed to [facility]. Roxy Sarabia RN Call received from [facility] going for MRI. 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 They need to get an order for XRay ORbits to make sure he does not have any metal. Please sign and we will fax to [facility]. Roxy Sarabia RN documented in this encounter [facility] 05-23-2024 Telephone encounter Note Call received from [facility] going for MRI. 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 They need to get an order for XRay ORbits to make sure he does not have any metal. Please sign and we will fax to [facility]. Roxy Sarabia RN [facility] 05-23-2024 Telephone encounter Note Order Signed. Roxy Sarabia RN [facility] 05-23-2024 Miscellaneous Notes Order Signed. Roxy Sarabia RN Please sign pended Creat for TB. Roxy Sarabia RN documented in this encounter [facility] 05-20-2024 Telephone encounter Note Please sign pended Creat for TB. Roxy Sarabia RN [facility] 05-19-2024 Note [facility] 05-19-2024 History of Present illness Narrative Radiation Oncology - Prostate Cancer New Patient/Consult Note PATIENT NAME: Sukhdeep Gamino PATIENT REQUESTING PROVIDER: Katrina Saul CNP OTHER PROVIDERS: Dr. Alek Fatima, Dr. Mayo Bah DIAGNOSIS: 63 year old male with prostate adenocarcinoma, initial PSA 7.9, biopsy [place] score 4 + 5 = 9 (grade group 5), clinical stage T2c, N0, M0, status post robotic radical prostatectomy and bilateral pelvic lymph node dissection for 11/05/2023, [place] 8 (4+4) pT3a pN0, with detectable and [...] any questions regarding this interpretation, please call [phone]. If you are unable to reach us at the number above, please feel free to contact [facility] at [phone]. Results-Findings * * *Final Report* * * [...] ultrasound-guided biopsy on 08/25/2023, with finding of Kingsville grade group 5 (4+5) from the left [...] (usual) Histologic Grade Grade Grade group 4 (K[place] Score 4 + 4 = 8) Intraductal [...] ^Rfl: fluticasone (FLONASE) 50 mcg/actuation nasal spray^1 [place].^Disp: ^Rfl: iv contrast (will be provided with [...] ASSESSMENT/PLAN: Prostate adenocarcinoma, initial PSA 7.9, biopsy [place] score 4 + 5 = 9 (grade [...] have him back after this. Signed by: Arnulfo Kamara MD cc: Alek Fatima [facility] [place] [address] Katrina Warner [address] [place] [address] documented in this encounter [facility] 05-17-2024 Telephone encounter Note Requested Prescriptions Pending Prescriptions Disp Refills Tadalafil (CIALIS) 5 mg tablet 90 tablet 1 Sig: Take 1 tablet by mouth once daily. [facility] 05-17-2024 Miscellaneous Notes Requested Prescriptions Pending Prescriptions Disp Refills Tadalafil (CIALIS) 5 mg tablet 90 tablet 1 Sig: Take 1 tablet by mouth once daily. documented in this encounter [facility] 05-12-2024 History of Present illness Narrative Radiology [...] IV SITE APPEARANCE: Clean,Dry and Intact SIGNATURE: Radha Peraza RN PATIENT NAME: Sukhdeep Gamino DATE: May [...] 1330 PATIENT DISCHARGED TO: Ambulatory patient, left [place] department area. A Diagnostic radioactive procedure has taken place, with no further precautions necessary other than routine body substance precautions. More information regarding radiation safety can be found using this link: [email or web address] SIGNATURE: RT Fiorella(Betty) PATIENT NAME: Sukhdeep Gamino DATE: May 12, 2024 TIME: 2:08 PM PAGER/CONTACT #: documented in this encounter [facility] 05-12-2024 Note [facility] 05-12-2024 Note [facility] 04-28-2024 Telephone encounter Note Pharmacist: Will you please enter Eligard 45mg orders and route to Dr. Kamara? Eligard and SIM to be scheduled after PSMA PET which is pending insurance approval. Thanks Ann Braswell RN [facility] 04-28-2024 Miscellaneous Notes Pharmacist: Will you please enter Eligard 45mg orders and route to Dr. Kamara? Eligard and SIM to be scheduled after PSMA PET which is pending insurance approval. 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: Joseph Gaming the patient need anesthesia: No [...] flotufolastat,18F flotufolastat Posluma MC GA68 PSMA PET 35817/LOCAMETZ (Gallium GA-68 Gozetotide) (6 mCi) A9800 - Posluma (Flotufolastat F18) (8mCi), [id number] - Region Auth#: Date Range: NPI: Member ID: Medicare Site/Contact: Case/Ref#: Notes: Route to MC or Requested Scheduling Pool: P PET TIMBER MANAGEMENT SPECIALIST [facility], P OCS CLERICAL POOL([facility]), Naomi RUIZ INFORMATION SYSTEMS SPECIALIST [facility] 04-28-2024 Miscellaneous Notes 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 Is this request for a Main Justin PET scan appointment? Yes: Cloth Handler: OSWALDO Ramirez Requesting Person (Last Name, First Name): Sherif Area Code + Phone/Pager: [phone] Who do we call to schedule this appointment? Other Contact: [facility] PET in [place], Route to [facility] to schedule. Requesting Staff [place] Area Code + Phone/Pager: [phone] PET Orders (A delay in scheduling will [...] Send requests to P COORD REVIEW MC documented in this encounter [facility] 04-28-2024 Nurse Note Radiation Therapy - Patient Education Note PATIENT NAME: Sukhdeep Gamino PATIENT April 28, 2024 [facility] FACILITY/LOCATION: [facility] READINESS TO LEARN Cognitive Ability: Alert and [...] need for social work, van service, and leaf sorter. Was PED reviewed? No Patient has an Onbody or Implanted device: No Signed by: Ann Braswell RN [facility] 04-28-2024 Nurse Note Radiation Therapy - Patient Education Note PATIENT NAME: Sukhdeep Gamino PATIENT April 28, 2024 [facility] FACILITY/LOCATION: [facility] READINESS TO LEARN Cognitive Ability: Alert and [...] need for social work, van service, and leaf sorter. Was PED reviewed? No Patient has an Onbody or Implanted device: No Signed by: Ann Braswell RN documented in this encounter [facility] 04-28-2024 Telephone encounter Note This form is used for MAIN CAMPUS APPOINTMENTS ONLY. Is this request for a [facility] PET scan appointment? Yes: Cloth Handler: OSWALDO Ramirez Requesting Person (Last Name, First Name): Sherif Area Code + Phone/Pager: [phone] Who do we call to schedule this appointment? Other Contact: [facility] PET in [place], Route to Regine Reynoso to schedule. [facility] Code + Phone/Pager: [phone] PET Orders (A delay in scheduling will [...] Send requests to P COORD REVIEW [facility] 04-28-2024 History of Present illness Narrative Radiation Oncology - Prostate Cancer New Patient/Consult Note PATIENT NAME: Sukhdeep Gamino PATIENT REQUESTING PROVIDER: Katrina Saul CNP OTHER PROVIDERS: Dr. Alek Fatima, Dr. Mayo Bah DIAGNOSIS: 63 year old male with prostate adenocarcinoma, initial PSA 7.9, biopsy Kingsville score 4 + 5 = 9 (grade [...] (usual) Histologic Grade Grade Grade group 4 (Kingsville Score 4 + 4 = 8) Intraductal [...] fluticasone (FLONASE) 50 mcg/actuation nasal spray 1 Storden. PAST MEDICAL HISTORY Diagnosis Date Asthma Atrial [...] bilateral pelvic lymph node dissection for 11/05/2023, Kingsville 8 (4+4) pT3a pN0, with detectable and [...] understanding of the information presented. Signed by: Arnulfo Kamara MD cc: Alek Fatima [facility] [place] [address] Katrina Warner [address] [address] documented in this encounter [facility] 04-28-2024 Note [facility] 04-28-2024 Nurse Note AUA= 2 Pacemaker/Defibrillator?N Previous Cancer(s)?N Previous Radiation?N Lupus/Scleroderma?N On body monitoring device?N [facility] 04-28-2024 Nurse Note AUA= 2 Pacemaker/Defibrillator?N Previous Cancer(s)?N Previous Radiation?N Lupus/Scleroderma?N On body monitoring device?N documented in this encounter [facility] 04-20-2024 History of Present illness Narrative Subjective Sukhdeep Gamino is a 63 y.o. male who presents for the following: Follow-up. Location: right latter-day Date of biopsy: 03/01/2024 Diagnosis: Actinic keratosis with adnexal extensions All pertinent medical history, medications, and allergies were reviewed. General Exam: alert , oriented to person, place, and time , normal affect, well appearing Unaccompanied A focused exam completed based on patient reported problems, see below: 1. Actinic keratosis (3) Dorsum of Nose, Mid Forehead, Right [place] Erythematous scaly papules Patient was counseled regarding these sun-induced growths that can develop into squamous cell carcinoma if left untreated. Discussed treatment options, including cryotherapy and topical preparations. It was emphasized that any treated lesions that fail to resolve should be re-evaluated. Patient elected for treatment with Efudex as this has become a chronic issue. Educated on Efudex treatment. Apply to Forehead, Temples, and Nose twice a day for two weeks. Discussed that treated areas will become red, crusty, and inflamed. If areas become too uncomfortable, patient may use OTC hydrocortisone cream to help decrease irritation and can discontinue treatment early. Sun exposure should be avoided during treatment. Patient instructed to contact office for any questions or issues during treatment. Lesions that fail to resolve once treated area is healed should be re-evaluated in the office. Handout given to patient. If medication is too expensive do not fill, contact office. Okay to wait to start treatment in a couple of weeks. Recommended to spot treat between appointments. Recommended wearing a hat when outdoors. Recommended broad spectrum sunscreen with SPF 30 or higher, reapply every 2 hours. Related Medications fluorouracil (Efudex) 5 % cream Apply to directed areas on the temples, forehead, and nose twice a day x 14 days. Dispense 30 day supply but only use for 14 days. Next Visit: as scheduled documented in this encounter [facility] 04-07-2024 History of Present illness Narrative VIRTUAL VISIT PROGRESS NOTE This is a virtual visit using Computime Zoom Video Visit. It required patient-provider interaction for the medical decision making as documented below. I have communicated my name and active licensure. The patient's identity and physical location were verified at the time of this visit. Either the patient or their legal software support representative has been informed of the risks [...] A. Prostate, radical prostatectomy: - Prostatic adenocarcinoma, Kingsville score 4+4=8 with tertiary pattern 5, Grade [...] fluticasone (FLONASE) 50 mcg/actuation nasal spray 1 Storden. No current facility-administered medications for this visit. [...] which included preparing to see the patient, yrtu-js-zscx patient care, completing clinical documentation, counseling and educating the patient/family/caregiver, and ordering medications, tests, or procedures Katrina Warner APRN.BAND SPLICER documented in this encounter [facility] 04-07-2024 Note [facility] 12-30-2023 History of Present illness Narrative VIRTUAL VISIT PROGRESS NOTE This is a virtual visit using Night & Day Studiosom Video Visit. It required patient-provider interaction for the medical decision making as documented below. I have communicated my name and active licensure. The patient's identity and physical location were verified at the time of this visit. Either the patient or their legal software support representative has been informed of the risks [...] fluticasone (FLONASE) 50 mcg/actuation nasal spray 1 Storden. No current facility-administered medications for this visit. [...] which included preparing to see the patient, rfyt-vs-idqp patient care, completing clinical documentation, counseling and educating the patient/family/caregiver, and ordering medications, tests, or procedures Katrina Warner APRN.BAND SPLICER documented in this encounter [facility] 12-30-2023 Note [facility] 12-29-2023 Note [facility] Cardiology Clinic Note Chief Complaint: Patient here for 1 year follow up CAD, chronic systolic heart failure, and hypertension. Had routine labs w/ lipid last January 2023. Had echo last month at [facility]. HPI: Sukhdeep Gamino is a 63 [...] thromboembolic prophylaxis given his atrial fibrillation and [id number] score; given significant bruising and ecchymosis, he can safely stop aspirin and continue on Coumadin alone given stable coronary artery disease Treat noncardiac comorbidities as clinically appropriate Return to clinic in 1 year or sooner should problems arise Adriana Huff MD, MPH, [facility], [facility], [facility] Interventional Cardiology Pager Email: [email or web address] 11-18-2023 History of Present illness Narrative VIRTUAL VISIT PROGRESS NOTE This is a virtual visit using Night & Day Studiosom Video Visit. It required patient-provider interaction for the medical decision making as documented below. I have communicated my name and active licensure. The patient's identity and physical location were verified at the time of this visit. Either the patient or their legal software support representative has been informed of the risks [...] A. Prostate, radical prostatectomy: - Prostatic adenocarcinoma, Kingsville score 4+4=8 with tertiary pattern 5, Grade [...] fluticasone (FLONASE) 50 mcg/actuation nasal spray 1 Storden. bicalutamide (CASODEX) 50 mg tablet Take 1 [...] test, echo, and EKG) to his local microbiology supervisor at [phone] per patient request There are no Patient Instructions on file for this visit. I spent a total of 45 minutes on the date of the service which included preparing to see the patient, vrgb-ao-vdwz patient care, completing clinical documentation, counseling and educating the patient/family/caregiver, and ordering medications, tests, or procedures Katrina Warner APRN.BAND SPLICER documented in this encounter [facility] 11-18-2023 Note [facility] 11-16-2023 Miscellaneous Notes Returned call to Mr. Gamino regarding incontinence. Given directions on how to properly do kegel exercises and how many. Handout emailed to him. He will call the office with any further questions or concerns. Casi Rocha RN, BSN Triage Nurse Department of Urology [facility] documented in this encounter [facility] 11-12-2023 Miscellaneous Notes Spoke to Mr. Gamino. Advised to stop cipro. Keflex has been called in for him. He can take antihistamine as advised. Patient verbalized understanding. All questions answered. Casi Rocha RN, BSN Triage Nurse Department of Urology [facility] documented in this encounter [facility] 11-12-2023 Miscellaneous Notes Spoke to Mr. Gamino. [...] RN, BSN Triage Nurse Department of Urology [facility] documented in this encounter [facility] 11-10-2023 Miscellaneous Notes Notified patient that per Dr. Bah, it is okay for him to take his short course of cipro for his padgett catheter. Pt verbalized understanding. All questions answered. Casi Rocha RN, BSN Triage Nurse Department of Urology [facility] documented in this encounter [facility] 11-06-2023 Note [facility] 11-06-2023 Note [facility] 11-05-2023 Note [facility] 11-05-2023 Note [facility] 11-05-2023 Note [facility] 11-05-2023 Note [facility] 11-03-2023 Note [facility] 11-03-2023 History of Present illness Narrative [facility] PRE-OP NOTE Sukhdeep Gamino is a 62 year old male. Pre-op Date: November 03, 2023 Date of Procedure: 11/05/2023 Does the patient have an active COVID-19 test in [facility]? N/A Procedure/Surgery: RALP Diagnosis: prostate cancer [...] scheduled: Yes Consent Signed: Consent not in [facility]. Surgeon notified via staff mesage. DOS Orders Placed and Signed: Yes. Pre-op H&P Done by [employer]: Yes. PATIENT INSTRUCTIONS FOR SURGERY 1.) DO [...] John Humphreys PA-C documented in this encounter [facility] 11-03-2023 Instructions Haily Nunez PA-C - 11/03/2023 1:10 PM EDT PATIENT PREOPERATIVE INSTRUCTIONS Roxana Bah MD has scheduled you for your procedure at this surgery center: [facility] Scheduling Office: [phone] --[address] [place] [address]. Please read below carefully for your personalized [...] call the Thursday before. Your surgeon s appointment scheduler will tell you what time to call the office. - If you have not reached the departmental appointment scheduler by 5 P.M., call [phone] after 5 P.M. the day before your surgery. Please be aware that emergency situations arise, which may delay or change your surgical time. If this happens, we will notify you as soon as possible and regret any inconvenience. If you already have an Advance Directive, please fax a copy to [phone] or email to for it to be [...] Haily Nunez PA-C documented in this encounter [facility] 11-03-2023 History and physical note Images from [...] denies new or worsening cardiac symptoms. -ECHO 2019: LVEF 40% Chronic ischemic heart disease Assessment: Denies any new or worsening cardiac symptoms. Follows microbiology supervisor in [place] last OV 01/2023. Reports compliance to medication. Denies any history of stents, CABG, reports [facility] x3, most recent ~2017. Recent cardiac testing [...] Pravastatin Paroxysmal atrial fibrillation (HCC) Assessment: Follows microbiology supervisor Dr. Lozano , last OV 01/2023. Reports [...] have a large neck STOP-Bang Score: 3 [id number] Score: Age: <65 Sex: male CHF history: Yes Hypertension history: Yes Stroke/TIA/thromboembolism history: No Vascular disease history: Yes Diabetes history: No [id number] Score: 3 ARISCAT Score: Age: 51-80 Preoperative [...] NERVE SPARING (N/A) at the request of Dr. Bah, Roxana Hernandez MD for consultation. My final recommendation will [...] fevers. Neurological: No history of TIA's, stroke, CHANGE AGENT tumor, impaired sensorium, hemiplegia, paraplegia or quadraplegia. [...] and hypertension Patient's last office visit with microbiology supervisor, Dr. Huff, was 02/2024. The following tests and/or procedures were performed: cardiac catheterization and echocardiogram. Negative for: abdominal aortic aneurysm, AICD/PPM, angina, arrhythmia, chest pain, congenital heart defect, DVT/PE, recent WI, murmur/valvular heart disease, PTCA, PVD, open heart [...] fluticasone (FLONASE) 50 mcg/actuation nasal spray 1 Storden. Taking Yes bicalutamide (CASODEX) 50 mg tablet [...] 364 QTC Calculation (Bazett) 462 Calculated R [place] -36 Calculated T [place] 5 Impression ATRIAL FIBRILLATION LEFT AXIS DEVIATION AGE UNDETERMINED ABNORMAL ECG Recent Results (from the past 10404 hour(s)) ECHO Collection Time: 11/03/23 3:14 PM [...] PM PAGER/CONTACT #: documented in this encounter [facility] 11-03-2023 History of Present illness Narrative RADIOLOGY [...] PATIENT PRESENTS WITH AN IMPLANTABLE OR ATTACHED RETURN AGENT: No CREATININE: No results found for: CREAT , EGFROTH , EGFRAA P.O.C.T. RESULTS: N/A November 03, [address] PERFORMED: No IV SITE: Ambulatory: A peripheral IV was started in the Left antecubital site with a Angio cath: 22 gauge. POST EXAM PIV STATUS: Discontinued PROCEDURE TYPE: NM Stress: 11.8 mCi Wm60l-Lttfuqp was administered IV for Rest Imaging at 0915 by carolyn gomez. 31.2 mCi Bb91a-Nqknsor was administered IV for Stress Imaging at 1005 by NEMESIO. PATIENT DISCHARGED TO: Ambulatory patient, left GA department area. A Diagnostic radioactive procedure has taken place, with no further precautions necessary other than routine body substance precautions. More information regarding radiation safety can be found using this link: [email or web address] [email or web address]%20P [email or web address]-%20Diagnostic%20Nucl ear%20Medicine%20Procedures.pdf SIGNATURE: RT Channing(R) PATIENT NAME: Sukhdeep Gamino [...] ALLERGIES: Reviewed and unchanged MEDICATIONS REVIEWED BY: Supervisor Hard Candy PROCEDURE TYPE: NM STRESS: 0.4 mg of Lexiscan was administered IV at 1005 by Rosario Cazares RN . Reversal agent used: None. Expiration date: 06/2025 Lot#: [id number] IV SITE: Ambulatory: A Saline lock was inserted per protocol POST EXAM PIV STATUS: Discontinued PATIENT DISCHARGED TO: Ambulatory patient, left [place] department area. A Diagnostic radioactive procedure has taken place, with no further precautions necessary other than routine body substance precautions. More information regarding radiation safety can be found using this link: [email or web address] [email or web address]%20P rotection%20-%20Diagnostic%20Nucl ear%20Medicine%20Procedures.pdf SIGNATURE: Rosario Cazares RN PATIENT NAME: Sukhdeep Gamino DATE: November 03, 2023 TIME: 10:10 AM PAGER/CONTACT #: documented in this encounter [facility] 11-03-2023 Note [facility] 11-03-2023 Note [facility] 10-02-2023 History of Present illness Narrative Images from the original note were not included. Referring Provider: Cesia Weeks Chief Complaint: Prostate cancer HPI Sukhdeep Gamino is a 62 year old male with history of elevated PSA with recent diagnosis of prostate cancer. Most recent PSA 7.8. Underwent prostate biopsy that demonstrated Kingsville 4+5=9, GG5, 90% highest involvement. Bone scan [...] very high risk prostate cancer (PSA 7.8, Kingsville 4+6=9, 90% high involvement) with negative bone [...] Roxana Bah MD documented in this encounter [facility] 10-02-2023 Note [facility] 09-02-2023 Miscellaneous Notes PT is OON [employer] Self pay DO NOT SCHEDULE TILL APPROVED, [facility] referral [phone], Questions contact [email or web address] PreAccess obtained approval OK to schedule Authorization number: PSMA Authorization date range: PSMA Primary Insurance: [employer] Self pay OON Diagnosis: Prostate Cancer C61 [...] No - Schedule as requested Comments for Assembler Motor Vehicle: Joseph BRAGG TO SCHEDULERS [place] P PET TIMBER MANAGEMENT SPECIALIST or P [place] SPECIAL STUDIES This form is used for MAIN CAMPUS APPOINTMENTS ONLY. Is this request for a [facility] PET scan appointment? Yes: Cloth Handler: Geraldine Schwartz Sec Requesting Person Dr Weeks: Area Code + Phone/Pager: [phone] Who do we call to schedule this appointment? Other Contact: External [facility] please route to Regine Marcus in [place] for scheduleing pt is approved through [facility] Requesting Staff Dr weeks Area Code + Phone/Pager: [phone] PET Orders (A delay in scheduling will result if the orders are not present at time of review): External. Has the External Clinical Order been scanned into [facility]? Yes ADDITIONAL ACTION MAY BE REQUIRED [...] need anesthesia? NO Send requests to P [facility] documented in this encounter [facility] 08-31-2023 Hospital Discharge instructions Patient Education 08/31/2023 [...] under a microscope. This is called the Kingsville score and the total score can range from 6 10, indicating how likely it is that the cancer will spread (metastasize) to other parts of the body. The higher the score, the greater the likelihood that the cancer will spread. Kingsville 6 or lower: This indicates that the cancer cells look similar to normal prostate cells (well differentiated). Christine 7: This indicates that the cancer cells look somewhat similar to normal prostate cells (moderately differentiated). Kingsville 8, 9, or 10: This indicates that [...] stress of having cancer. General instructions Take tidx-qlk-hfkhnax and prescription medicines only as told by your health care provider. If you have to go to the hospital, notify your cancer specialist (oncologist). Keep all follow-up visits. This is important. Where to find more information [place] [employer]: www.cancer.org [place] Society of Clinical Oncology: www.cancer.net National Cancer [place]: www.cancer.gov Contact a health care provider if: [...] provider. Document Revised: 10/16/2021 Document Reviewed: 10/16/2021 Metafused Patient Education 2022 [employer]. Follow Up Care 08/10/2023 12:37:56 With:MICKY GARRISON, Cesia Hernández, URL Address: [facility] [address] [place] [address]- [phone] When: Unknown Comments:f/u pending results of PSMA and bone scans [facility] Ankush 08-26-2023 Evaluation + Plan note Future Scheduled TestsPathology Tissue Exam 08/26/23Pathology Tissue Exam 08/26/23Pathology Tissue Exam 08/26/23Pathology Tissue Exam 08/26/23Pathology Tissue Exam 08/26/23Pathology Tissue Exam 08/26/23Pathology Tissue Exam 08/26/23Pathology Tissue Exam 08/26/23Pathology Tissue Exam 08/26/23Pathology Tissue Exam 08/26/23Pathology Tissue Exam 08/26/23Pathology Tissue Exam 08/26/23 [facility] Ankush 08-25-2023 Hospital Discharge instructions Patient Education 08/25/2023 [...] discomfort near your rectum, especially while sitting. Lakeline-colored urine due to small amounts of blood in your urine. A burning feeling while urinating. Blood in your stool (feces) or bleeding from your rectum. Blood in your semen. Follow these instructions at home: Medicines Take uwch-epu-ymynygj and prescription medicines only as told by [...] provider. Document Revised: 01/13/2022 Document Reviewed: 01/13/2022 Metafused Patient Education 2022 [employer]. Follow Up Care 08/17/2023 15:34:17 With:MICKY GARRISON, Cesia Hernández, URL Address: [facility] [address] , [place] [address]- [phone] When: Unknown Comments:review path on 09/11/23 [facility] Joseph 08-10-2023 Note Chief Complaint Referral *Elevated PSA [...] 0.4mg qd. Rx sent to [facility] in [place]. Discussed the medication side effects, and the [...] WEEKS MD, URL [facility] [address] [place] [address] [phone] Additional Instructions: sched TRUS/bx Patient Education Transrectal Ultrasound-Guided Prostate Biopsy, Care After Transrectal Ultrasound-Guided Prostate Biopsy Radha Heredia, personally scribed for Dr. Weeks on 08/10/2023 12:29:36. . Documentation recorded by the M[facility] rivera (more content not included)... [facility] Comment on above: Result Comment: Elec tronically [...] discomfort near your rectum, especially while sitting. Lakeline-colored urine due to small amounts of blood in your urine. A burning feeling while urinating. Blood in your stool (feces) or bleeding from your rectum. Blood in your semen. Follow these instructions at home: Medicines Take aiox-gsr-kbbxkhg and prescription medicines only as told by [...] provider. Document Revised: 01/13/2022 Document Reviewed: 01/13/2022 Metafused Patient Education 2022 [employer]. 08/10/2023 12:27:58 Transrectal Ultrasound-Guided Prostate Biopsy Transrectal [...] including vitamins, herbs, eye drops, creams, and ryny-wsp-ghvxdcc medicines. Any problems you or family members [...] provider tells you to take them. Taking qouq-son-bhrvuib medicines, vitamins, herbs, and supplements. General instructions [...] provider. Document Revised: 01/13/2022 Document Reviewed: 01/13/2022 Metafused Patient Education 2022 [employer]. Follow Up Care 04/15/2023 08:43:29 With:MICKY GARRISON, Cesia Hernández, URL Address: [facility] [address] , [place] [address]- [phone] When: Unknown Comments:sched TRUS/bx [facility] Ankush 01-02-2023 Note Continue statin [facility] 01-02-2023 Note Coronary artery dise ase is stable without concerning symptoms Continue GDMT continue risk factor modifications- heart healthy diet, regular exercise as tolerated and continue all medications. [facility] 01-02-2023 Note [facility]- II currently e uvolemic without exacerbation Continue GDMT- ASA, coreg, pravastatin, and lisinopril Diuretic therapy Monitor daily weights, I&O, fluid restriction 1.5-2L/day, renal function and electrolytes- [facility] 01-02-2023 Note B/P elevated today, but he states he rushed here today and typically his b/p is well controlled Continue all meds [facility] 01-02-2023 Note Patient here for 1 [...] All other systems reviewed and are negative. [facility] 01-02-2023 Note [facility] CARDIOLOGY PROGR ESS NOTE HPI: Sukhdeep Gamino is a 62 y.o. 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, lifting heavy items [...] CHF (congestive heart failure), NYHA class 2 ([facility]- II currently euvolemic without exacerbation Continue GDMT- ASA, coreg, pravastatin, and lisinopril Diuretic therapy Monitor daily weights, I&O, fluid restriction 1.5-2L/day, renal function and electrolytes- Coronary artery disease involving bois forte coronary artery of bois forte heart without angina pectoris Coronary artery disease is stable without concerning symptoms Continue GDMT continue risk factor modifications- heart healthy diet, regular exercise as tolerated and continue all medications. Mixed hyper (more content not included)... [facility] 06-03-2021 History of Present illness Narrative [...] advised to discontinue aspirin, NSAIDs, and specific herbals/xvgw-bby-cqhmfpq's preprocedure. Patient has been advised on preoperative [...] at acceptable cardiac risk based on current [place] [employer]/[place] [employer] (ACC/AHA) guidelines on zehra-operative cardiovascular evaluation and management of patient's undergoing non-cardiac surgery. Patient actively follows with microbiology supervisor. Have requested correspondence with patient's microbiology supervisor for additional risk stratification. Addition of requested [...] cardiac enzymes/EKGs as needed. Correspondence with patient's microbiology supervisor to assure optimization for surgery and obtain [...] he has had 2 doses of the AesRx COVID-19 vaccine BMI of 27.- patient will follow up with their primary care physician for weight loss management and lifestyle modification. Patient is at intermediate risk/probability for obstructive sleep apnea based on NASRIN screening questionnaire. Patient should be monitored via [place] standard postop NASRIN protocol least continuous pulse [...] to go right total hip replacement at [facility] scheduled for June 26, 2021. Internal Medicine has been consulted for preoperative medical risk stratification. Please see below regarding the status of active medical conditions and assessment and plan for preoperative medical risk stratification. MEDICAL ILLNESSES : 1. Osteoarthritis involving the right hip as above 2. Hypertension diagnosed in 2019 managed by his primary care physician and microbiology supervisor 3. Chronic atrial fibrillation diagnosed in 2008. He reports undergoing previous cardioversion at the time of his initial diagnosis but reverted to A. Fib. He denies any history of stroke or atheroembolic phenomena. He is maintained on chronic warfarin 4. Coronary artery disease. Apparently noted to be nonobstructive based upon initial LHC in 2008. Patient states he underwent more recent updated LHC at [facility] in [facility]. He reports he was noted to have some mild disease but did not require any percutaneous intervention or stents. 5. Congestive heart failure. Patient was initially diagnosed with CHF in 2008 requiring hospitalization associate with underlying A. Fib. He now reports chronic systolic heart failure being treated by his microbiology supervisor and maintained on Entresto and Carvedilol. He [...] transfusions No Previous Transfusion Related Reactions No Uatsdin Reasons To Avoid Blood Transfusions No Personal [...] occasional PETERSON. Positive hypertension. Chronic A. fib. 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 Patient reports he is undergone 2 previous heart caths one in 2008 and more recently April 2021. Per his description both showed nonobstructive CAD. 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 He believes his most recent ejection fraction [...] Yohan Johnson MD documented in this encounter [facility] Evaluation + Plan note Future Appointments Appointment Date:09/11/2023 10:30:00 AM Scheduled Provider:Cesia WEEKS MD Location:[facility] Appointment Type:URO Office Visit [facility] Evaluation note Diagnosis Pain Generalized pain [facility] Work Phone: Evaluation note* Diagnosis Screening for genitourinary condition Screening for other and unspecified genitourinary condition [facility] Diagnosis Malignant neoplasm of prostate (HCC)- Primary Malignant neoplasm of prostate [facility] Diagnosis Congestive heart failure, unspecified HF chronicity, unspecified heart failure type (HCC)- Primary [facility] Diagnosis Pre-op testing- Primary Preoperative examination, unspecified Prostate cancer (HCC) Malignant neoplasm of prostate Prostate disease Unspecified disorder of prostate Malignant neoplasm of prostate (HCC) Malignant neoplasm of prostate [facility] Diagnosis Malignant neoplasm of prostate (HCC) Malignant neoplasm of prostate Malignant neoplasm of prostate (HCC) Malignant neoplasm of prostate [facility] Pre-op evaluation- Primary Preoperative [...] of prostate documented in this encounter [facility] note* Diagnosis Screening for genitourinary condition Screening for other and unspecified genitourinary condition documented in this encounter [facility] note* Diagnosis Prostate cancer (HCC)- Primary Malignant neoplasm of prostate documented in this encounter [facility] note* Diagnosis Prostate cancer (HCC)- Primary Malignant neoplasm of prostate PREETI (stress urinary incontinence), male Stress incontinence, male documented in this encounter [facility] note* Diagnosis Encounter for follow-up surveillance of prostate cancer- Primary Unspecified follow-up examination History of prostate cancer Personal history of malignant neoplasm of prostate PREETI (stress urinary incontinence), male Stress incontinence, male 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 documented in this encounter [facility] note* Diagnosis Pre-op evaluation- Primary Preoperative [...] organic origin documented in this encounter [facility] note* Diagnosis Pre-op evaluation- Primary Preoperative [...] of prostate documented in this encounter [facility] note* Diagnosis Pre-op evaluation- Primary Preoperative [...] neoplasm of prostate [facility] Diagnosis Pre-op evaluation- Primary Preoperative examination, [...] neoplasm of prostate [facility] Diagnosis Pre-op evaluation- Primary Preoperative examination, [...] neoplasm of prostate [facility] Diagnosis Pre-op evaluation- Primary Preoperative examination, [...] neoplasm of prostate [facility] Diagnosis Pre-op evaluation- Primary Preoperative examination, unspecified Malignant neoplasm of prostate (HCC) Malignant neoplasm of prostate Cardiomyopathy in diseases classified elsewhere (HCC) Chronic ischemic heart disease Chronic ischemic heart disease, unspecified Chronic systolic (congestive) heart failure (HCC) Essential hypertension Unspecified essential hypertension Mixed hyperlipidemia Paroxysmal atrial fibrillation (HCC) Atrial fibrillation Prostate cancer (HCC)- Primary Malignant neoplasm of prostate [facility] Diagnosis Pre-op evaluation- Primary Preoperative examination, [...] neoplasm of prostate [facility] Diagnosis Pre-op evaluation- Primary Preoperative examination, unspecified Malignant neoplasm of prostate (HCC) Malignant neoplasm of prostate Cardiomyopathy in diseases classified elsewhere (HCC) Chronic ischemic heart disease Chronic ischemic heart disease, unspecified Chronic systolic (congestive) heart failure (HCC) Essential hypertension Unspecified essential hypertension Mixed hyperlipidemia Paroxysmal atrial fibrillation (HCC) Atrial fibrillation Prostate cancer (HCC)- Primary Malignant neoplasm of prostate [facility] Diagnosis Pre-op evaluation- Primary Preoperative examination, unspecified Malignant neoplasm of prostate (HCC) Malignant neoplasm of prostate Cardiomyopathy in diseases classified elsewhere (HCC) Chronic ischemic heart disease Chronic ischemic heart disease, unspecified Chronic systolic (congestive) heart failure (HCC) Essential hypertension Unspecified essential hypertension Mixed hyperlipidemia Paroxysmal atrial fibrillation (HCC) Atrial fibrillation Prostate cancer (HCC)- Primary Malignant neoplasm of prostate [facility] Diagnosis Pre-op evaluation- Primary Preoperative examination, unspecified Malignant neoplasm of prostate (HCC) Malignant neoplasm of prostate Cardiomyopathy in diseases classified elsewhere (HCC) Chronic ischemic heart disease Chronic ischemic heart disease, unspecified Chronic systolic (congestive) heart failure (HCC) Essential hypertension Unspecified essential hypertension Mixed hyperlipidemia Paroxysmal atrial fibrillation (HCC) Atrial fibrillation Prostate cancer (HCC)- Primary Malignant neoplasm of prostate [facility] Diagnosis Pre-op evaluation- Primary Preoperative examination, unspecified Malignant neoplasm of prostate (HCC) Malignant neoplasm of prostate Cardiomyopathy in diseases classified elsewhere (HCC) Chronic ischemic heart disease Chronic ischemic heart disease, unspecified Chronic systolic (congestive) heart failure (HCC) Essential hypertension Unspecified essential hypertension Mixed hyperlipidemia Paroxysmal atrial fibrillation (HCC) Atrial fibrillation Prostate cancer (HCC)- Primary Malignant neoplasm of prostate [facility] Diagnosis Pre-op evaluation- Primary Preoperative examination, unspecified Malignant neoplasm of prostate (HCC) Malignant neoplasm of prostate Cardiomyopathy in diseases classified elsewhere (HCC) Chronic ischemic heart disease Chronic ischemic heart disease, unspecified Chronic systolic (congestive) heart failure (HCC) Essential hypertension Unspecified essential hypertension Mixed hyperlipidemia Paroxysmal atrial fibrillation (HCC) Atrial fibrillation Prostate cancer (HCC) Malignant neoplasm of prostate [facility] Diagnosis Pre-op evaluation- Primary Preoperative examination, [...] of prostate documented in this encounter [facility] note* Diagnosis Pre-op evaluation- Primary Preoperative [...] of prostate documented in this encounter [facility] note* Diagnosis Pre-op evaluation- Primary Preoperative [...] of prostate documented in this encounter [facility] note* Diagnosis Actinic keratosis- Primary documented in this encounter [facility] note* Diagnosis Pre-op evaluation- Primary Preoperative examination, [...] of prostate documented in this encounter [facility] note* Diagnosis Pre-op evaluation- Primary Preoperative examination, unspecified Malignant neoplasm of prostate (HCC) Malignant neoplasm of prostate Cardiomyopathy in diseases classified elsewhere (HCC) Chronic ischemic heart disease Chronic ischemic heart disease, unspecified Chronic systolic (congestive) heart failure (HCC) Essential hypertension Unspecified essential hypertension Mixed hyperlipidemia Paroxysmal atrial fibrillation (HCC) Atrial fibrillation Dysuria- Primary documented in this encounter [facility] note* Diagnosis Pre-op evaluation- Primary Preoperative [...] of prostate documented in this encounter [facility] note* Diagnosis Pre-op evaluation- Primary Preoperative [...] neoplasm of prostate documented in this encounter [facility] course Narrative No data available for this section [facility] progress note No data available for this section [facility] reason for referral (narrative)* Diagnostic Procedure Only (Routine) - Authorized Specialty Diagnoses / Procedures Referred By Blas villarreal Referred To Contact MOLECULAR & FUNCTIONAL IMAGING Diagnoses Malignant neoplasm of prostate (HCC) Procedures NM CARDIAC PERF STRESS/PHARM MYOCARDIAL SPECT MULTIPLE STUDIES Roxana Bah MD [address] [id number] [facility] [address] [place] [address] Referral ID Status Reason Start Date Expiration Date Visits Requested Visits Authorized [id number] Authorized Auto-Generate d Referral Financial Clearance Required - OON Payor Patient Cleared - [employer] 10/07/2023 08/02/2024 1 1 [facility] for referral (narrative)* Outpatient Procedure (Routine) - Pending Review Specialty Diagnoses / Procedures Referred By Blas villarreal Referred To Contact [facility] Diagnoses Congestive heart failure, unspecified HF chronicity, unspecified heart failure type (HCC) Procedures ECHO ECHO TTHRC R-T 2D W/WOM-MODE COMPL SPEC&COLR D Roxana Bah MD [address] [address] [facility] [place] [address] [place] [id number] Referral ID Status Reason Start Date Expiration Date Visits Requested Visits Authorized [id number] Pending Review Auto-Generat ed Referral 10/08/2023 10/07/2024 1 1 [facility] for referral (narrative)* Diagnostic Procedure Only (Routine) - Closed Specialty Diagnoses / Procedures Referred By Contac t Referred To Contact MOLECULAR & FUNCTIONAL IMAGING Diagnoses Malignant neoplasm of prostate (HCC) Procedures NM CARDIAC PERF STRESS/PHARM MYOCARDIAL SPECT MULTIPLE STUDIES Roxana Bah MD [address] [facility] [address] [place] [id number] Molecular [facility] Functional Imaging [address] [place] [address] Referral ID Status Reason Start Date Expiration Date V isits Requested Visits Authorized [id number] Closed Auto-Generated Referral Financial Clearance Required - OON Payor Patient Cleared - [employer] 10/07/2023 08/02/2024 1 1 [facility] for referral (narrative)* Diagnostic Procedure Only (Routine) - Authorized Specialty Diagnoses / Procedures Referred By Contac t Referred To Contact MOLECULAR & FUNCTIONAL IMAGING Diagnoses Rising PSA following treatment for malignant neoplasm of prostate Procedures NM PET/CT PROSTATE WHOLE BODY IMAGING PET IMAGING CT ATTENUATION SKULL BASE MID-THIGH Arnulfo Kamara MD [address] [place] [address] [place] [address] Molecular & Functional Imaging [address] [place] [address] Referral ID Status Reason Start Date Expiration Date Visits Requested Visits Authorized [id number] Authorized Auto-Generat ed Referral 04/28/2024 05/28/2025 1 1 [facility] for referral (narrative)* Diagnostic Procedure Only (Routine) - New Request Specialty Diagnoses / Procedures Referred By Contac t Referred To Contact XR IMAGING Diagnoses Prostate cancer (HCC) Procedures XR FACIAL BONES 3V AP/LAT/WEEKS RADEX FACIAL BONES COMPLETE MINIMUM 3 VIEWS Arnulfo Kamara MD [address] [place], [place] [address] [place] [address] Xr Imaging [place] [address] Referral ID Status Reason Start Date Expiration Date Visits Requested Visits Authorized [id number] New Request Auto-Generat ed Referral 4 06/22/2025 1 1 [facility] for visit Narrative* Auth/Cert Specialty Diagnoses / Procedures Referred By Contac t Referred To Contact Diagnoses Unilateral primary osteoarthritis, right hip RIGHT HIP PAIN Procedures [place] ARTHROPLASTY ACETABULAR AND PROXIMAL FEMORAL PROSTHETIC REPLACEMENT (TOTAL HIP ARTHROPLASTY) WITH OR WITHOUT AUTOGRAFT OR ALLOGRAFT ARTHROPLASTY HIP TOTAL RIGHT ANTERIOR Caryl Acevedo MD [address] [place] [address] Nighat Goldstein Or [address] [place] [address] Referral ID Status Reason Start Date Expiration Date Visits Re quested Visits Authorized [id number] 1 1 [facility] for visit Narrative* Diagnostic Procedure Only (Routine) - Closed Specialty Diagnoses / Procedures Referred By Blas t Referred To Contact MOLECULAR & FUNCTIONAL IMAGING Diagnoses Malignant neoplasm of prostate (HCC) Procedures NM CARDIAC PERF STRESS/PHARM MYOCARDIAL SPECT MULTIPLE STUDIES Roxana Bah MD [address] [facility] [address] [place] [address] Molecular & Functional Imaging [address] [place] [address] Referral ID Status Reason Start Date Expiration Date V isits Requested Visits Authorized [id number] Closed Auto-Generated Referral Financial Clearance Required - OON Payor Patient Cleared - [employer] 10/07/2023 08/02/2024 1 1 [facility] Summary Purpose Family History No Family History [...] FoundDocuments on File Type Date Recorded 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 Latest Code Status on File Code Status [...] By Contac t Referred To Contact Diagnoses Prostate cancer (HCC) Procedures CT SIM PLANNING RADIATION ONCOLOGY THER RAD SIMULAJ-AIDED FIELD SETTING COMPLEX Arnulfo Kamara MD [address] [place] [address] Referral ID Status Reason Start Date Expiration Date Visits Requested Visits Authorized [id number] New Request PCP Requested Referral 06/06/2024 09/04/2024 1 1 Specialty Diagnoses / Procedures Referred By Contac t Referred To Contact MR IMAGING Diagnoses History of prostate cancer Procedures MRI CERVICAL SPINE WO/W IVCON MRI SPINAL CANAL CERVICAL W/O & W/CONTR MATRL Arnulfo Kamara MD [address] [place] [address] [place] [address] Referral ID Status Reason Start Date Expiration Date Visits Requested Visits Authorized [id number] New Request Auto-Generat ed Referral 4 06/18/2025 1 1 Specialty Diagnoses / Procedures Referred By Contac t Referred To Contact Diagnoses History of prostate cancer Procedures CT SIM PLANNING RADIATION ONCOLOGY THER RAD SIMULAJ-AIDED FIELD SETTING COMPLEX Arnulfo Kamara MD [address] [place] [address] Referral ID Status Reason Start Date Expiration Date Visits Requested Visits Authorized [id number] New Request PCP Requested Referral 4 08/17/2024 1 1 Specialty Diagnoses / Procedures Referred By Contac t Referred To Contact Radiation Oncology Diagnoses History of prostate cancer Rising PSA following treatment for malignant neoplasm of prostate Procedures RAD/ONC CONSULT OFFICE/OUTPATIENT NEW HIGH MDM 60 MINUTES Katrina Warner, BENEFITS MANAGER.BAND SPLICER [address] [place] [address] Referral ID Status Reason Start Date Expiration Date Visits Requested Visits Authorized [id number] Authorized PCP Requested Referral 04/07/2024 04/07/2025 1 1 Specialty Diagnoses / Procedures Referred By Blas villarreal Referred To Contact [facility] Diagnoses PREETI (stress urinary incontinence), male Procedures CONSULT TO PHYSICAL THERAPY PHYSICAL THERAPY EVALUATION HIGH COMPLEX 45 MINS Katrina Warner APRN.BAND SPLICER [address] [place] [address] [facility] [place] [address] [place] [phone] Referral ID Status Reason Start Date Expiration Date Visits Requested Visits Authorized [id number] Pending Review PCP Requested Referral Auto-Generate d Referral 12/30/2023 12/29/2024 99 99 Additional Source Comments (unrecognized sect ion and content) No Status Records FoundNo Status Records FoundNo Status Records FoundNo Status Records FoundNo Status Records FoundNo Status Records FoundNo Status Records FoundNo Status Records Found INFORMATION SOURCE (unrecogn ized section and content) DATE CREATED AUTHOR 02/07/2021 [facility] DATE CREATED AUTHOR AUTHOR'S ORGANIZ ATION 06/28/2021 [facility] DATE CREATED AUTHOR AUTHOR'S ORGANIZ ATION 05/29/2022 [facility] DATE CREATED AUTHOR AUTHOR'S ORGANIZ ATION 09/17/2023 [facility] DATE CREATED AUTHOR AUTHOR'S ORGANIZ ATION 09/18/2023 [facility] DATE CREATED AUTHOR AUTHOR'S ORGANIZ ATION 12/29/2023 [facility] DATE CREATED AUTHOR AUTHOR'S ORGANIZ ATION 04/23/2024 [facility] DATE CREATED AUTHOR AUTHOR'S ORGANIZ ATION 08/03/2024 [facility] Reason for Visit (unrecogniz ed section and content) Reason Comments Pre-op Exam Reason Comments Nm Pet Request Reason Comments Pre-Op Teaching Specialty Diagnoses / Procedures Referred By Blas villarreal Referred To Contact ANESTHESIOLOGY Diagnoses Malignant neoplasm of prostate (HCC) Procedures REFER TO PACC - PRE ANESTHESIA CONSULTATION CLINIC OFFICE/OUTPATIENT [facility] 60 MINUTES Roxana Bah MD [address] [place] [address] Pre [facility] [address] [place] [address] Referral ID Status Reason Start Date Expiration Date V isits Requested Visits Authorized [id number] Closed PCP Requested Referral Financial Clearance Required - OON Payor Patient Cleared - [facility] 10/06/2023 10/04/2024 1 1 Specialty Diagnoses / Procedures Referred By Contac t Referred To Contact ANESTHESIOLOGY Diagnoses Malignant neoplasm of prostate (HCC) Procedures REFER TO PACC - PRE ANESTHESIA CONSULTATION CLINIC OFFICE/OUTPATIENT [facility] 60 MINUTES Roxana Bah MD [address] [place] [address] [facility] [address] [place] [address] Specialty Diagnoses / Procedures Referred By Contac t Referred To Contact [facility] Diagnoses Prostate Cancer Procedures NEW PATIENT VISIT Cesia Weeks MD [address] [place], [facility] [place] [address] Referral ID Status Reason Start Date Expiration Date V isits Requested Visits Authorized [id number] Closed Financial Clearance Required - OON Payor Patient Cleared - [facility] 09/18/2023 12/17/2023 1 1 Reason Comments Returning Patient's Call Reason Comments Follow Up Phone Call Reason Comments Post-Op Visit Reason Comments Follow Up Reason Comments Patient Education Reason Comments Consult Specialty Diagnoses / Procedures Referred By Contac t Referred To Contact Radiation Oncology Diagnoses History of prostate cancer Rising PSA following treatment for malignant neoplasm of prostate Procedures RAD/ONC CONSULT OFFICE/OUTPATIENT [facility] MDM 60 MINUTES Katrina Warner APRN.BAND SPLICER [address] [place] [address] Referral ID Status Reason Start Date Expiration Date V isits Requested Visits Authorized [id number] Closed PCP Requested Referral 04/07/2024 04/07/2025 1 1 Reason Comments Orders Reason Comments Radiology NM Specialty Diagnoses / Procedures Referred By Contac t Referred To Contact MOLECULAR & FUNCTIONAL IMAGING Diagnoses Rising PSA following treatment for malignant neoplasm of prostate Procedures NM PET/CT PROSTATE WHOLE BODY IMAGING PET IMAGING CT ATTENUATION SKULL BASE MID-THIGH Arnulfo Kamara MD [address] [place] [address] [place] [address] Molecular & Functional Imaging [address] [place] [address] Referral ID Status Reason Start Date Expiration Date V isits Requested Visits Authorized [id number] Closed Auto-Generate d Referral 04/28/2024 05/28/2025 1 1 Reason Onset Date Comments Refill Request 05/17/2024 Reason Comments Prostate Cancer Eligard NOT Given Reason Onset Date Comments Simulation Request Form 05/19/2024 Prostate Cancer Reason Comments Orders Reason Comments Prostate Cancer Specialty Diagnoses / Procedures Referred By Contac t Referred To Contact Diagnoses Malignant neoplasm of prostate (HCC) Arnulfo Kamara MD [address] [place] [address] [place] [address] Jose Treat Joseph [address] [place] [address] Referral ID Status Reason Start Date Expiration Date V isits Requested Visits Authorized [id number] Authorized 06/06/2024 09/04/2024 99 99 Reason Onset Date Comments Simulation Request Form 06/06/2024 Reason Comments Medication Update Orgovyx Reason Comments Radiotherapy On-treatment Visit Reason Comments Prostate Cancer Radiotherapy On-treatment Visit Reason Comments Follow-up Care Teams (unrecognized sec tion and content) Associate [employer] In Nursing Relationship Specialty Start Date End Date Alek Fatima MD [address] [place] [address] PCP - General Family Medicine [...] September 14, 2023 End: September 14, 2023 Associate [employer] Nursing Relationship Specialty Start Date End Date Alek Fatima MD [address] [place] [facility] [place] [place] [address] PCP - General Family Medicine 10/14/23 Associate [employer] Nursing Relationship Specialty Start Date End Date Alek Fatima MD [address] [place] [facility] [place] [place] [address] PCP - General Family Medicine 10/14/23 Associate Of [employer] In Nursing Relationship Specialty Start Date End Date Alek Fatima MD [address] [place] [facility] [place] [place] [address] PCP - General Family Medicine 10/14/23 Associate Of [employer] In Nursing Relationship Specialty Start Date End Date Alek Fatima MD [address] [place] [facility] [place] [place] [address] PCP - General Family Medicine 10/14/23 Associate Of [employer] In Nursing Relationship Specialty Start Date End Date Alek Fatima MD [address] [place] [place] [address] PCP - General Family Medicine 10/14/23 Associate [employer] In Nursing Relationship Specialty Start Date End Date Alek Fatima MD [address] [place] [place] [place] [address] PCP - General Family Medicine 10/14/23 Associate [employer] In Nursing Relationship Specialty Start Date End Date Alek Fatima MD [address] [place] [place] [address] PCP - General Family Medicine 10/14/23 Associate [employer] In Nursing Relationship Specialty Start Date End Date Alek Fatima MD [address] [place] [address] PCP - General Family Medicine 10/14/23 Associate [employer] In Nursing Relationship Specialty Start Date End Date Alek Fatima MD [address] [place] [address] PCP - General Family Medicine 10/14/23 Associate [employer] In Nursing Relationship Specialty Start Date End Date Alek Fatima MD [address] [place] [address] PCP - General Family Medicine 10/14/23 Associate [employer] In Nursing Relationship Specialty Start Date End Date Alek Fatima MD [address] [place] [phone] PCP - General Family Medicine 10/14/23 Associate Of [employer] In Nursing Relationship Specialty Start Date End Date Alek Fatima MD [address] [place] [address] PCP - General Family Medicine 10/14/23 Associate [employer] In Nursing Relationship Specialty Start Date End Date Alek Fatima MD [address] [place] [address] PCP - General Family Medicine 10/14/23 Associate [employer] In Nursing Relationship Specialty Start Date End Date Alek Fatima MD [address] [place] [address] PCP - General Family Medicine 10/14/23 Associate [employer] Science In Nursing Relationship Specialty Start Date End Date Alek Fatima MD [address] [place] [address] PCP - General Family Medicine 10/14/23 Associate [employer] In Nursing Relationship Specialty Start Date End Date Alek Fatima MD [address] [place] [address] PCP - General Family Medicine 10/14/23 Associate Of Science In Nursing Relationship Specialty Start Date End Date Alek Fatima MD [address] [place] [address] PCP - General Family Medicine 10/14/23 Associate Of [employer] In Nursing Relationship Specialty Start Date End Date Alek Fatima MD [address] [place] [phone] PCP - General Family Medicine 10/14/23 Associate [employer] In Nursing Relationship Specialty Start Date End Date Alek Fatima MD [address] [place] [phone] PCP - General Family Medicine 10/14/23 Associate [employer] In Nursing Relationship Specialty Start Date End Date Alek Fatima MD [address] [place] [phone] PCP - General Family Medicine 10/14/23 Associate Of Science In Nursing Relationship Specialty Start Date End Date Alek Fatima MD [address] [place] [phone] PCP - General Family Medicine 10/14/23 Associate Of Science In Nursing Relationship Specialty Start Date End Date Alek Fatima MD [address] [place] [address] PCP - General Family Medicine 10/14/23 Associate Of Science In Nursing Relationship Specialty Start Date End Date Alek Fatima MD [address] [place] [facility] [address] PCP - General Family Medicine 10/14/23 Associate Of Science In Nursing Relationship Specialty Start Date End Date Alek Fatima MD [address] [place] [place] [address] PCP - General Family Medicine 10/14/23 Associate Of Science In Nursing Relationship Specialty Start Date End Date Alek Fatima MD [address] [place] [place] [place] [address] PCP - General Family Medicine 10/14/23 Associate Of Science In Nursing Relationship Specialty Start Date End Date Alek Fatima MD [address] [place] [place] [place] [address] PCP - General Family Medicine 10/14/23 Associate Of Science In Nursing Relationship Specialty Start Date End Date Alek Fatima MD [address] [place] [place] [address] PCP - General Family Medicine 10/14/23 Associate Of Science In Nursing Relationship Specialty Start Date End Date Alek Fatima MD [address] [place] [place] [place] [address] PCP - General Family Medicine 10/14/23 Goals [...] or prosecute any alcohol or drug abuse patient.[facility] CenterIn the event this information is protected by the Federal Confidentiality of Alcohol and Drug Abuse Patient Records regulations: The Federal rules restrict any use of the information to criminally investigate or prosecute any alcohol or drug abuse patient.[facility] CenterIn the event this information is protected by the Federal Confidentiality of Alcohol and Drug Abuse Patient Records regulations: The Federal rules restrict any use of the information to criminally investigate or prosecute any alcohol or drug abuse patient.[facility] CenterIn the event this information is protected by the Federal Confidentiality of Alcohol and Drug Abuse Patient Records regulations: The Federal rules restrict any use of the information to criminally investigate or prosecute any alcohol or drug abuse patient.[facility] CenterIn the event this information is protected by the Federal Confidentiality of Alcohol and Drug Abuse Patient Records regulations: The Federal rules restrict any use of the information to criminally investigate or prosecute any alcohol or drug abuse patient.[facility] CenterIn the event this information is protected by the Federal Confidentiality of Alcohol and Drug Abuse Patient Records regulations: The Federal rules restrict any use of the information to criminally investigate or prosecute any alcohol or drug abuse patient.[facility] CenterIn the event this information is protected by the Federal Confidentiality of Alcohol and Drug Abuse Patient Records regulations: The Federal rules restrict any use of the information to criminally investigate or prosecute any alcohol or drug abuse patient.[facility] CenterIn the event this information is protected by the Federal Confidentiality of Alcohol and Drug Abuse Patient Records regulations: The Federal rules restrict any use of the information to criminally investigate or prosecute any alcohol or drug abuse patient.[facility] CenterIn the event this information is protected by the Federal Confidentiality of Alcohol and Drug Abuse Patient Records regulations: The Federal rules restrict any use of the information to criminally investigate or prosecute any alcohol or drug abuse patient.[facility] CenterIn the event this information is protected by the Federal Confidentiality of Alcohol and Drug Abuse Patient Records regulations: The Federal rules restrict any use of the information to criminally investigate or prosecute any alcohol or drug abuse patient.[facility] CenterIn the event this information is protected by the Federal Confidentiality of Alcohol and Drug Abuse Patient Records regulations: The Federal rules restrict any use of the information to criminally investigate or prosecute any alcohol or drug abuse patient.[facility] CenterIn the event this information is protected by the Federal Confidentiality of Alcohol and Drug Abuse Patient Records regulations: The Federal rules restrict any use of the information to criminally investigate or prosecute any alcohol or drug abuse patient.[facility] CenterIn the event this information is protected by the Federal Confidentiality of Alcohol and Drug Abuse Patient Records regulations: The Federal rules restrict any use of the information to criminally investigate or prosecute any alcohol or drug abuse patient.[facility] CenterIn the event this information is protected by the Federal Confidentiality of Alcohol and Drug Abuse Patient Records regulations: The Federal rules restrict any use of the information to criminally investigate or prosecute any alcohol or drug abuse patient.[facility] CenterIn the event this information is protected by the Federal Confidentiality of Alcohol and Drug Abuse Patient Records regulations: The Federal rules restrict any use of the information to criminally investigate or prosecute any alcohol or drug abuse patient.[facility] CenterIn the event this information is protected by the Federal Confidentiality of Alcohol and Drug Abuse Patient Records regulations: The Federal rules restrict any use of the information to criminally investigate or prosecute any alcohol or drug abuse patient.[facility] CenterIn the event this information is protected by the Federal Confidentiality of Alcohol and Drug Abuse Patient Records regulations: The Federal rules restrict any use of the information to criminally investigate or prosecute any alcohol or drug abuse patient.[facility] CenterIn the event this information is protected by the Federal Confidentiality of Alcohol and Drug Abuse Patient Records regulations: The Federal rules restrict any use of the information to criminally investigate or prosecute any alcohol or drug abuse patient.[facility] CenterIn the event this information is protected by the Federal Confidentiality of Alcohol and Drug Abuse Patient Records regulations: The Federal rules restrict any use of the information to criminally investigate or prosecute any alcohol or drug abuse patient.[facility] CenterIn the event this information is protected by the Federal Confidentiality of Alcohol and Drug Abuse Patient Records regulations: The Federal rules restrict any use of the information to criminally investigate or prosecute any alcohol or drug abuse patient.[facility] CenterIn the event this information is protected by the Federal Confidentiality of Alcohol and Drug Abuse Patient Records regulations: The Federal rules restrict any use of the information to criminally investigate or prosecute any alcohol or drug abuse patient.[facility] CenterIn the event this information is protected by the Federal Confidentiality of Alcohol and Drug Abuse Patient Records regulations: The Federal rules restrict any use of the information to criminally investigate or prosecute any alcohol or drug abuse patient.[facility] CenterIn the event this information is protected by the Federal Confidentiality of Alcohol and Drug Abuse Patient Records regulations: The Federal rules restrict any use of the information to criminally investigate or prosecute any alcohol or drug abuse patient.[facility] CenterIn the event this information is protected by the Federal Confidentiality of Alcohol and Drug Abuse Patient Records regulations: The Federal rules restrict any use of the information to criminally investigate or prosecute any alcohol or drug abuse patient.[facility] CenterIn the event this information is protected by the Federal Confidentiality of Alcohol and Drug Abuse Patient Records regulations: The Federal rules restrict any use of the information to criminally investigate or prosecute any alcohol or drug abuse patient.[facility] CenterIn the event this information is protected by the Federal Confidentiality of Alcohol and Drug Abuse Patient Records regulations: The Federal rules restrict any use of the information to criminally investigate or prosecute any alcohol or drug abuse patient.[facility] CenterIn the event this information is protected by the Federal Confidentiality of Alcohol and Drug Abuse Patient Records regulations: The Federal rules restrict any use of the information to criminally investigate or prosecute any alcohol or drug abuse patient.[facility] CenterIn the event this information is protected by the Federal Confidentiality of Alcohol and Drug Abuse Patient Records regulations: The Federal rules restrict any use of the information to criminally investigate or prosecute any alcohol or drug abuse patient.[facility] CenterIn the event this information is protected by the Federal Confidentiality of Alcohol and Drug Abuse Patient Records regulations: The Federal rules restrict any use of the information to criminally investigate or prosecute any alcohol or drug abuse patient.[facility] CenterIn the event this information is protected by the Federal Confidentiality of Alcohol and Drug Abuse Patient Records regulations: The Federal rules restrict any use of the information to criminally investigate or prosecute any alcohol or drug abuse patient.[facility] CenterIn the event this information is protected by the Federal Confidentiality of Alcohol and Drug Abuse Patient Records regulations: The Federal rules restrict any use of the information to criminally investigate or prosecute any alcohol or drug abuse patient.[facility] CenterIn the event this information is protected by the Federal Confidentiality of Alcohol and Drug Abuse Patient Records regulations: The Federal rules restrict any use of the information to criminally investigate or prosecute any alcohol or drug abuse patient.[facility] CenterIn the event this information is protected by the Federal Confidentiality of Alcohol and Drug Abuse Patient Records regulations: The Federal rules restrict any use of the information to criminally investigate or prosecute any alcohol or drug abuse patient.[facility] CenterIn the event this information is protected by the Federal Confidentiality of Alcohol and Drug Abuse Patient Records regulations: The Federal rules restrict any use of the information to criminally investigate or prosecute any alcohol or drug abuse patient.[facility] CenterIn the event this information is protected by the Federal Confidentiality of Alcohol and Drug Abuse Patient Records regulations: The Federal rules restrict any use of the information to criminally investigate or prosecute any alcohol or drug abuse patient.[facility] CenterIn the event this information is protected by the Federal Confidentiality of Alcohol and Drug Abuse Patient Records regulations: The Federal rules restrict any use of the information to criminally investigate or prosecute any alcohol or drug abuse patient.[facility] CenterIn the event this information is protected by the Federal Confidentiality of Alcohol and Drug Abuse Patient Records regulations: The Federal rules restrict any use of the information to criminally investigate or prosecute any alcohol or drug abuse patient.[facility] CenterIn the event this information is protected by the Federal Confidentiality of Alcohol and Drug Abuse Patient Records regulations: The Federal rules restrict any use of the information to criminally investigate or prosecute any alcohol or drug abuse patient.[facility] CenterIn the event this information is protected by the Federal Confidentiality of Alcohol and Drug Abuse Patient Records regulations: The Federal rules restrict any use of the information to criminally investigate or prosecute any alcohol or drug abuse patient.[facility] CenterIn the event this information is protected by the Federal Confidentiality of Alcohol and Drug Abuse Patient Records regulations: The Federal rules restrict any use of the information to criminally investigate or prosecute any alcohol or drug abuse patient.[facility] CenterIn the event this information is protected by the Federal Confidentiality of Alcohol and Drug Abuse Patient Records regulations: The Federal rules restrict any use of the information to criminally investigate or prosecute any alcohol or drug abuse patient.[facility] CenterIn the event this information is protected by the Federal Confidentiality of Alcohol and Drug Abuse Patient Records regulations: The Federal rules restrict any use of the information to criminally investigate or prosecute any alcohol or drug abuse patient.[facility] CenterIn the event this information is protected by the Federal Confidentiality of Alcohol and Drug Abuse Patient Records regulations: The Federal rules restrict any use of the information to criminally investigate or prosecute any alcohol or drug abuse patient.[facility] CenterIn the event this information is protected by the Federal Confidentiality of Alcohol and Drug Abuse Patient Records regulations: The Federal rules restrict any use of the information to criminally investigate or prosecute any alcohol or drug abuse patient.[facility] CenterIn the event this information is protected by the Federal Confidentiality of Alcohol and Drug Abuse Patient Records regulations: The Federal rules restrict any use of the information to criminally investigate or prosecute any alcohol or drug abuse patient.[facility] CenterIn the event this information is protected by the Federal Confidentiality of Alcohol and Drug Abuse Patient Records regulations: The Federal rules restrict any use of the information to criminally investigate or prosecute any alcohol or drug abuse patient.[facility] CenterIn the event this information is protected by the Federal Confidentiality of Alcohol and Drug Abuse Patient Records regulations: The Federal rules restrict any use of the information to criminally investigate or prosecute any alcohol or drug abuse patient.[facility] CenterIn the event this information is protected by the Federal Confidentiality of Alcohol and Drug Abuse Patient Records regulations: The Federal rules restrict any use of the information to criminally investigate or prosecute any alcohol or drug abuse patient.[facility] FOR RECORDS PERTAINING TO PATIENTS WHO ARE [...] BE BASED ON THE PRIMARY CLINICAL RECORDS. [facility] [facility]. provides no warranty or guarantee of the accuracy or completeness of information in this document.
== END 2024-08-05 09:03 | disposition home or self-care (01) ==
LOC: LAB 09:02
PROVIDERS: PCP Family Medicine; Visit Provider Family Medicine
DX: R05.8 Other specified cough (principal)
CPT/HCPCS: 36415; 87070; 87205

== ENCOUNTER 2024-11-22 08:50 | Outpatient (OUT) | payer MEDICARE, OTHER, SELFPAY ==
--- NOTE | 2024-11-22 09:00 | CA_ITS ---
Patient Name: SUKHDEEP POLANCO MR#: [id number] : 1960 Exam Date: 11/22/2024 Ordering Doctor: ETHAN KIM CNP ECHOCARDIOGRAM REPORT PROCEDURE: CA ECHO DOPPLER COMPLETE INDICATIONS: Aortic actasia, HTN with heart failure COMPARISON: None. DESCRIPTION: COMPLETE ECHOCARDIOGRAM Real-time transthoracic echocardiography with 2D, M-mode, spectral and color flow Doppler performed. QUALITY: Technical quality was good. LEFT VENTRICLE: Normal chamber size. Mild concentric left ventricular hypertrophy. Systolic function is at the lower limits of normal. LV EF: Lower limits of normal left ventricular ejection fraction, (50-55%). DIASTOLIC: Not adequately assessed due to heart rhythm. ATRIAL SEPTUM: LEFT ATRIUM: Severe dilatation. RIGHT ATRIUM: Severe dilatation. RIGHT VENTRICLE: Normal chamber size. Normal right ventricular systolic function. TRICUSPID VALVE: Normal mobility and thickness. No stenosis with mild regurgitation. No evidence of pulmonary hypertension. RVSP 29 mmHg MITRAL VALVE: Normal mobility and thickness. Mild mitral annular calcification. Mild mitral regurgitation. AORTIC VALVE: Normal trileaflet appearance. Thickened aortic valve. Normal leaflet mobility. No evidence of aortic valve stenosis. Trivial aortic regurgitation. AORTIC ROOT: Normal diameter and appearance, measuring 3.6 cm. Mild dilatation of the ascending aorta measuring 3.8 cm. PULMONIC VALVE: Normal thickness and mobility. No stenosis. Trivial regurgitation. PERICARDIUM: Small circumferential pericardial effusion. IVC: Collapses with inspirations. Moderate dilatation measuring 2.4 cm. PLEURA: CONCLUSION: 1. Mild concentric left ventricular hypertrophy with low normal systolic function. LVEF is estimated at 50 to 55%. 2. Normal right ventricular size and systolic function. 3. Mild mitral and tricuspid regurgitation. 4. Severe biatrial dilatation. 5. Normal right-sided pressures. 6. Small circumferential pericardial effusion. Adult Echocardiography Procedure Report Left Ventricle LVEDD (3.7 - 5.6 cm): 5.21 cm LVESD (2.2 - 4.0 cm): 3.62 cm LVIVS thickness (0.6 - 1.2 cm): 1.16 cm LVPW thickness (0.5 - 1.0 cm): 1.16 cm LVOT Max Gradient: 1.61 mm[Hg], 1.79 mm[Hg] LVOT Area (cm2): 0.65 m/s Peak Velocity (LVOT): 0.63 m/s, 0.67 m/s LVOT Diameter 2.52 cm Left Atrium LA Volume Index (2D A2C): 100.22 ml/m2 Left Atrium Systolic Dimension: 6.22 cm Mitral Valve Mitral Valve E-Wave Peak Velocity: 0.84 m/s Right Ventricle RV Internal Diastolic Dimension: 3.81 cm Aorta AO Root Diam: 3.72 cm Aortic Valve AoV Area (Peak Abran): 3.05 cm2, 3.04 cm2, 3.06 cm2 Peak Velocity(Antegrade Flow): 1.04 m/s, 1.09 m/s Peak Gradient(Antegrade Flow): 4.32 mm[Hg], 4.74 mm[Hg] Tricuspid Valve Peak Velocity (Regurgitant Flow): 2.16 m/s, 2.31 m/s, 2.21 m/s, 2.11 m/s, 2.04 m/s, 2.21 m/s Pulmonic Valve Peak Velocity: 0.74 m/s Peak Gradient: 2.34 mm[Hg], 2.05 mm[Hg] Right Atrium Right Atrium Systolic Pressure: 93.45 ml, 93.45 ml Dictated by: Darryl Hart M.D. on 11/22/2024 at 18:30 Approved by: Darryl Hart M.D. on 11/22/2024 at 18:34
== END 2024-11-22 08:51 | disposition home or self-care (01) ==
LOC: CARD 08:51
PROVIDERS: PCP Family Medicine; Visit Provider Nurse Practitioner Family
DX: I77.819 Aortic ectasia, unspecified site (principal); I11.0 Hypertensive heart disease with heart failure
CPT/HCPCS: 93306; 93356

== ENCOUNTER 2025-03-06 10:23 | Outpatient (OUT) | payer MEDICARE, OTHER, SELFPAY ==
--- OUTSIDE RECORDS SUMMARY | 2025-03-06 10:52 | XMS_ITS | CCD ---
Author Organization [facility] Care Team Providers Care Wind Field Manager Name Role Phone ELTAHAWY, EHAB A Admitting Unavailable ELJANELL SAUNDERSAB A Attending Unavailable ALEK FATIMA Primary Care Unavailable ALEK FATIMA Referring Unavailable Unavailable Primary Care Provider Alek Masterson MD Primary Care Provider ALEK FATIMA Primary Care Unavailable CARYL ACEVEDO Admitting Unavailable CARYL ACEVEDO Attending Unavailable CONSULTANTS, [facility] Consulting Unavailable CARYL ACEVEDO Referring Unavailable ALEK FATIMA Primary Care Unavailable KUSHAL, DR GASTON Primary Care Unavailable MISC, DR BUSCH Admitting Unavailable MISC, DR UBSCH Attending Unavailable KUSHAL, DR GASTON Primary Care Unavailable KUSHAL, DR GASTON Admitting Unavailable KUSHAL, DR GASTON Attending Unavailable KUSHAL, DR GASTON Consulting Unavailable KUSHAL, DR GASTON Primary Care Unavailable KUSHAL, DR GASTON Admitting Unavailable KUSHAL, DR GASTON Attending Unavailable KUSHAL, DR GASTON Consulting Unavailable ZIEBER, DR ALL Hernández Consulting Unavailable Alek Fatima Primary Care Physician MD Chadd Weeks Attending Provider [phone] Unavailable Primary Care Provider UnavailMD Alek Hardwick Primary Care Provider [phone] Chadd WEEKS Attending Unavailable Chadd WEEKS Attending Unavailable Chadd WEEKS Attending Unavailable Alek Fatima Referring Unavailable Chadd Weeks Admitting Unavailable Chadd Weeks Attending Unavailable Chadd Weeks Attending Unavailable Alek Fatima Primary Care Unavailable Chadd Weeks Admsheila Unavailable Alek Fatima MD Primary Care Provider [phone] Alek Fatima MD Primary Care Provider Unavailable Primary Care Provider Unavailmark Huff MD, Ahmed Unavailable Adriana Huff MD [facility] Unavailable [phone] PORFIRIO CASTANEDA Admitting Unavailable PORFIRIO CASTANEDA Attending Unavailable HOY, ALEK M Primary Care Unavailable ADRIANA HUFF Attending Unavailable ETHAN LYNNE Attending Unavailable Arnulfo KAMARA Referring Unavailable Arnulfo KAMARA Attending Unavailable HOY, ALEK M Primary Care Unavailable HOY, ALEK M Primary Care Unavailable Arnulfo KAMARA Referring Unavailable PORFIRIO CASTANEDA Attending Unavailable HOY, ALEK M Primary Care Unavailable Arnulfo KAMARA Attending Unavailable HOY, ALEK M Primary Care Unavailable Arnulfo KAMARA Attending Unavailable HOY, ALEK M Primary Care Unavailable HOY, ALEK M Primary Care Unavailable HAILY CLINE Referring Unavailable HOY, ALEK M Primary Care Unavailable CASTANEDAPORFIRIO Attending Unavailable HOY, ALEK M Primary Care [...] Primary Care Unavailable Arnulfo KAMARA Referring Unavailable Arnulfo KAMARA Attending Unavailable HOY, ALEK M Primary Care Unavailable HOY, ALEK M Primary Care Unavailable HOY, ALEK M Primary Care Unavailable HOY, ALKE M Primary Care Unavailable [...] Unavailable HOY, ALEK M Primary Care Unavailable PORFIRIO CASTANEDA Referring Unavailable HOY, ALEK M Primary Care Unavailable Arnulfo KAMARA Attending Unavailable LUCAS, KATRINA Referring Unavailable HOY, ALEK M Primary [...] Unavailable HOY, ALEK M Primary Care Unavailable MILI WARNERIKA Attending Unavailable HOY, ALEK M Primary Care Unavailable HOY, ALEK M Primary Care Unavailable HOY, ALEK M Primary Care Unavailable Arnulfo KAMARA Attending Unavailable HOY, ALEK M Primary Care Unavailable HOY, ALEK M Primary Care Unavailable HOY, ALEK M Primary Care Unavailable Arnulfo KAMARA Referring Unavailable HOY, ALEK M Primary Care Unavailable VIRAL PLATA Attending Unavailable VIRAL PLATA Attending Unavailable Allergies Allergy Classification Reported Allergen(s) Allergy Type Date of Onset Reaction(s) Facility Unclassified (1 source) 74823,00; Translations: [99104,00] Propensity to adverse reactions (disorder) 9 [facility] Repository (1 source) No Known Medication Allergies; Translations: [No Known Medication Allergies] Propensity to adverse reactions (disorder) [facility] Repository (20 sources) Ciprofloxacin; Translations: [CIPROFLOXACIN] Drug Allergy [address] [facility] Work Phone: Medications Current Medications Medication Drug Class(es) Dates Sig (Normalized) Sig (Original) 30 ACTUAT fluticasone furoate 0.05 MG/ACTUAT / vilanterol 0.025 MG/ACTUAT Dry Powder Inhaler (3 sources) Start: 08-10-2023 take 1 puff(s) by inhalation once daily fluticasone-vilante rol 50 mcg-25 mcg/inh. inhalation powder puff(s), Inhalation, Daily, Refill(s) 0 Start Date: 08/10/23 Status: Ordered albuterol 0.83 mg/ml inhalation solution (6 sources) beta2-Adrenergic Agonist albuterol (2.5 MG/3ML) 0.083% [...] above: Take 1 tablet by duarte th two times a day for 7 days. aspirin 81 mg delayed release oral tablet (20 sources) Platelet Aggregation Inhibitor, Nonsteroidal Anti-inflammatory Drug End: 04-28-2024 take 1 tablet by mouth once daily aspirin 81 MG EC tablet Take 1 tablet by mouth Daily Active take 81 mg by mouth once daily A SPIRIN ORAL Take 81 mg by mouth 1 (one) time each day. 0 Suspended Comment on above: in the morning. bicalutamide 50 mg oral tablet (20 sources) Androgen Receptor Inhibitor Start: 10-02-19 End: 11-18-19 take 1 tablet by mouth once daily bicalutamide (Casodex) 50 MG chemo tablet Take 50 mg by mouth Daily. 10/10/2023 Active Comment on above: Take 1 tablet by duarte once daily. carvedilol 25 mg oral tablet (20 sources) alpha-Adrenergic José Miguel, beta-Adrenergic José Miguel Start: 07-09-20 take 1 tablet by mouth at bedtime carvedilol (COREG) 25 mg tablet TAKE 1 TABLET BY MOUTH IN THE MORNING AND AT BEDTIME 07/09/2023 Active Comment on above: TAKE 1 TABLET BY DUARTE IN THE MORNING AND AT BEDTIME ciprofloxacin 500 mg oral tablet (1 source) Quinolone Antimicrobial Start: 08-10-19 End: 08-17-19 Cipro 500 mg Tab 500 mg = 1 tab(s), Oral, BID, start 3 days prior to procedure, X 7 day(s), # 14 tab(s), Refills(s) 0, Pharmacy: [id number], 178, cm, 08/10/23 11:30:00 EST, Height/Length Dosing, 88.5, kg, 08/10/23 11:30:00 EST, Weight Dosing Start Date: 08/10/23 Stop Date: 08/17/23 Status: Ordered 24 hr dilTIAZem hydrochloride 120 mg extended release oral capsule (20 sources) Calcium Channel José Miguel Start: 07-12-20 take 1 capsule by mouth once daily dilTIAZem CD (Cardizem CD) 120 MG 24 hr capsule TAKE 1 CAPSULE BY MOUTH ONCE DAILY DIRECTED 07/12/2023 Active take 1 [facility], then take 1 capsule by mouth every twenty-four hours dilTIAZem CD (CARDIZEM CD) 120 mg 24 hr capsule Take 120 mg by mouth at bedtime. 0 Suspended Comment on above: TAKE 1 CAPSULE BY [facility] ONCE DAILY DIRECTED DilTIAZem (Eqv-Cardizem CD) 120 mg/24 hours oral capsule, extended release (3 sources) Start: 08-10-2023 DilTIAZem (Eqv-Cardizem CD) 120 mg/24 hours oral capsule, extended release Refills(s) 0 Start Date: 08/10/23 Status: Ordered fluorouracil 50 mg/ml topical cream (5 sources) Nucleoside Metabolic Inhibitor Start: 04-20-2024 fluorouracil (Efudex) 5 % cream Indications: Actinic keratosis Apply to directed areas on the temples, forehead, and nose twice a day x 14 days. Dispense 30 day supply but only use for 14 days. 40 g 04/20/2024 Active fluticasone propionate 0.05 mg/actuat metered dose nasal spray (20 sources) Corticosteroid fluticasone (Gretta nase) 50 MCG/ACT nasal spray 1 spray Active fluticasone (GRETTA NASE) 50 mcg/actuation nasal spray 1 Grover. Active take 1 spray(s) nasa l route twice daily fluticasone propionate (Flonase Allergy Relief) 50 mcg/actuation nasal spray Administer 1 spray into each nostril 2 (two) times a day. Shake gently. Before first use, prime pump. After use, clean tip and replace cap. 0 Suspended Comment on above: 1 Grover. iv contrast (will be provided with radiology [...] 05/20/2024 Active levoFLOXacin 750 mg oral tablet (6 sources) Quinolone Antimicrobial levoFLOXacin (Levaquin) 750 MG tablet Active lisinopril 10 mg oral tablet (20 sources) Angiotensin Converting Enzyme Inhibitor Start: 07-09-20 23 take 1 tablet by mouth once daily lisinopril (ZESTRIL) 10 mg tablet Take 10 mg by mouth once daily. 07/09/2023 Active Comment on above: Take 10 mg by mouth once daily. 5 ml metoprolol tartrate 1 mg/ml injection (4 sources) beta-Adrenergic José Miguel Start: 11-05-19 End: 11-13-19 24 metoprolol 2.5-5 mg injection (LOPRESSOR) perflutren lipid microspheres 1.3 mL in NaCl (PF) 0.9% 10 mL injection (DEFINITY) (4 sources) Start: 11-05-19 End: 11-13-19 perflutren lipid microspheres 1.3 mL in NaCl (PF) 0.9% 10 mL injection ([employer]) pravastatin sodium 40 mg oral tablet (20 [...] End: 11-13-19 regadenoson 0.4 mg injection (LEXISCAN) sacubitril 24 mg / valsartan 26 mg oral tablet (7 sources) Angiotensin 2 Receptor José Miguel take [...] sources) Phosphodiesterase 5 Inhibitor Start: 11-18-2023 End: 11-14-2024 take 1 tablet by mouth once daily Tadalafil (CIALIS) 5 mg tablet Indications: Erectile dysfunction following radical prostatectomy Take 1 tablet by mouth once daily. 90 tablet 1 11/15/2024 Active Comment on above: Take 1 tablet by duarte once daily. terbinafine hydrochloride 10 mg/ml topical cream (2 sources) Allylamine Antifungal Start: 03-01-2025 End: 03-31-2025 terbinafine (LamISIL) 1 % cream Indications: Tinea corporis Apply topically in the morning and before bedtime. 30 g 1 03/01/2025 03/31/2025 Active warfarin sodium 6 mg oral tablet (20 sources) Vitamin K Antagonist Start: 07-17-2023 take 1 tablet by mouth once daily warfarin (Coumadin) 6 MG tablet TAKE 1 TABLET BY MOUTH ONCE DAILY, THEN ON ODD DAYS ADD 1MG TABLET WITH THE 6MG TABLET 07/17/2023 Active take 1 tablet by mouth at bedtim e warfarin (COUMADIN) 6 mg tablet Take 6 mg by mouth at bedtime. 0 Suspended Comment on above: Take 1 tablet by [facility] every afternoon. Completed/Discontinued Medications Medication Drug Class(es) Dates Sig (Normalized) Sig (Original) acetaminophen 500 mg oral tablet (20 sources) Start: 11-06-2023 End: 10-03-2024 take 2 tablets by mouth every eight hours as needed acetaminophen (TYLENOL EXTRA STRENGTH) 500 mg tablet Take 2 tablets by mouth every 8 hours as needed for pain for up to 40 doses. 40 tablet 11/06/2023 10/03/2024 Discontinued Comment on above: Take 2 tablets [facility] 8 hours as needed for pain for up to 40 doses. Beclomethasone (1 source) Corticosteroid take 2 puff(s) by mouth twice daily beclomethasone (QVAR) 40 mcg/actuation inhaler Inhale 2 puffs 2 (two) times a day. Rinse mouth with water after use to reduce aftertaste and incidence of candidiasis. Do not swallow. 0 Suspended cephalexin 500 mg oral capsule (7 sources) Cephalosporin Antibacterial Start: 11-12-2023 End: 04-28-2024 take 1 capsule by mouth twice daily cephALEXin (KEFLEX) 500 mg capsule Take 1 capsule by mouth two times a day. 4 capsule 11/12/2023 04/28/2024 Discontinued (Course of therapy completed) Comment on above: Take 1 capsule by mo [facility] two times a day. docusate sodium 100 mg oral capsule (6 sources) Start: 11-06-2023 End: 12-06-2023 take 1 capsule by mouth twice daily docusate sodium (COLACE) 100 mg capsule Take 1 capsule by mouth two times a day. 60 capsule 0 11/06/2023 11/18/2023 Discontinued (Course of therapy completed) Comment on above: Take 1 capsule [facility] two times a day. 0.375 ml leuprolide acetate 120 mg/ml prefilled syringe (2 sources) Gonadotropin Releasing Hormone Receptor Agonist Start: 09-13-2024 End: 09-13-2024 inject 1 dose by subcutaneous injection once 45 mg, SUBCUTANEOUS, ONCE, 1 dose, On Thu09/13/24 at 0930, Hazardous Chemotherapy Drug: Use appropriate PPE. Start: 06-06-2024 End: 06-06-2024 inject 1 dose by subcutaneous injection once 22.5 mg, SUBCUTANEOUS, ONCE, 1 dose, On Thu06/06/24 at 1600, Hazardous Chemotherapy Drug: Use appropriate PPE. 24 hr oxybutynin chloride 5 mg extended release oral tablet (6 sources) Cholinergic Muscarinic Antagonist Start: 11-06-2023 End: 11-18-2023 oxybutynin XL (DITROPAN XL) 5 mg 24 hr tablet Take 1 tablet by mouth once daily as needed (bladder spasms) for up to 6 days. Please stop taking at least ONE DAY prior to padgett removal 6 tablet 0 11/06/2023 11/18/2023 Discontinued (Course of therapy completed) Comment on above: Take 1 tablet by duarte th once daily as needed (bladder spasms) for up to 6 days. Please stop taking at least ONE DAY prior to padgett removal relugolix (ORGOVYX) 120 mg tablet (20 sources) Start: 06-06-2024 End: 12-16-2024 take 1 tablet by mouth once daily relugolix (ORGOVYX) 120 mg tablet Take 1 tablet by mouth once daily. 30 tablet 5 06/06/2024 12/16/2024 Discontinued Start: 06-06-2024 take 1 tablet by duarte th once daily relugolix (ORGOVYX) 120 mg tablet Take 1 tablet by mouth once daily. 30 tablet 5 06/06/2024 Active tamsulosin hydrochloride 0.4 mg oral capsule (20 sources) alpha-Adrenergic José Miguel Start: 08-10-2023 End: 11-18-2023 take 1 capsule by mouth once tamsulosin (FLOMAX) 0.4 mg Take 1 capsule by mouth every afternoon. 0 09/08/2023 11/18/2023 Discontinued (Course of therapy completed) Comment on above: Take 1 capsule by mo uth every afternoon. Problems Active Problems Problem Classification Problem Date Documented Da te Episodic/Chronic Abdominal hernia (10 sources) Inguinal hernia; Translations: [Unilateral inguinal hernia, without obstruction or gangrene, not specified as recurrent] Onset: 08-10-2023 Episodic Aortic; peripheral; and visceral artery aneurysms (2 sources) Aortic ectasia, unspecified site; Translations: [Aortic ectasia, unspecified site] Onset: 09-29-2024 Chronic Asthma (20 sources) Asthma; Translations: [Unspecified asthma, [...] [Hypertensive heart disease with heart failure] Onset: 09-29-2024 Chronic Mycoses (2 sources) Tinea corporis; Translations: [Tinea corporis] 03-02-2025 Episodic Osteoarthritis (5 sources) Osteoarthritis of right hip joint; Translations: [Unilateral primary osteoarthritis, right hip] Onset: 06-26-2021 06-26-2021 Chronic Other aftercare (1 source) Surgical follow-up; Translations: [Encounter for follow-up examination after completed treatment for conditions other than malignant neoplasm] 11-02-2024 Episodic Other and ill-defined heart disease (3 sources) Heart disease 08-06-2023 Chronic Other and unspecified benign neoplasm (2 sources) Melanocytic nevus of trunk; Translations: [Melanocytic nevi of trunk] 03-01-2025 Episodic Other connective tissue disease (1 source) History [...] Onset: 05-26-2022 Episodic Other male genital disorders (4 sources) Erectile dysfunction following radical prostatectomy; Translations: [Erectile dysfunction following radical prostatectomy] 12-30-2023 Chronic Other male genital disorders (1 source) Disorder of prostate; Translations: [Disorder of prostate, unspecified] 11-03-2023 Episodic Other nervous system disorders (1 source) Polyneuropathy, unspecified; Translations: [POLYNEUROPATHY UNSPECIFIED] Onset: 05-28-2022 Chronic Other skin disorders (4 sources) Actinic keratosis; Translations: [Actinic keratosis] 04-20-2024 Episodic Other skin disorders (2 sources) Skin tag; Translations: [Other hypertrophic disorders of the skin] 03-01-2025 Episodic Other skin disorders (2 sources) Seborrheic keratosis; Translations: [Other seborrheic keratosis] 03-01-2025 Episodic Other skin disorders (2 sources) Lentiginosis; Translations: [Other melanin hyperpigmentation] 03-01-2025 Episodic Zehra-; endo-; and myocarditis; cardiomyopathy (except [...] EXPOS COVID-19] Onset: 07-03-2021 Unclassified (2 sources) Permanent atrial fibrillation; Translations: [Permanent atrial fibrillation] Onset: 09-29-2024 Unclassified (2 sources) Longstanding persistent atrial fibrillation; Translations: [Longstanding persistent atrial fibrillation] Onset: 12-29-2023 Unclassified (1 source) Radiotherapy On-treatment Visit Onset: 07-04-2024 Past or Other Problems Problem Classification Problem Date Documented Date Episodic/Chronic Cancer of prostate (14 sources) History of malignant neoplasm of prostate; Translations: [Personal history of malignant neoplasm of prostate] Onset: 04-28-2024 12-30-2023 Episodic Other screening for suspected conditions (not mental disorders or infectious disease) (12 sources) Raised prostate specific antigen; Translations: [Elevated prostate specific antigen [PSA]] Onset: 08-10-2023 Episodic Unclassified (1 source) Preprocedural examination done 10-03-2024 Results Test Name Value Interpretation Reference Range [facility]RAD[facility] ) SUKHDEEP GAMINO ([id number]) 1960 M Date Time Provider Department 12/14/24 9:30 AM Arnulfo KAMARA During your visit today, we recorded the following information about you: Arnulfo Kamara MD 12/16/2024 10:31 AM Signed Radiation Oncology - Follow Up Note PATIENT NAME: Sukhdeep Gamino PATIENT DIAGNOSIS: Prostate adenocarcinoma, initial PSA 7.9, biopsy Christine score 4 + 5 = 9 (grade group 5), clinical stage T2c, N0, M0, status post robotic radical prostatectomy and bilateral pelvic lymph node dissection for 11/05/2023, [facility] 8 (4+4) pT3a pN0, with detectable and rising post prostatectomy PSA, PSA 04/26/2024 0.18. RADIATION SUMMARY: DATES OF TREATMENT: 06/15/2024-08/05/2024 AREA TREATED: Pelvis and Prostate Bed DELIVERED DOSE: Area: Pelvis and Prostate Bed 4600 cGy in 23 fractions, 3 Arcs, IMRT, 10 MV with daily CBCT DELIVERED DOSE: Area: Prostate Bed Boost 2400 cGy in 12 fractions, 2 Arcs, IMRT, 10 MV with daily CBCT TOTAL: 7000 cGy in 35 fractions ELAPSED TIME: 51 days. INTERVAL HISTORY: The patient presents for routine follow-up after recent completion of radiation. Doing well. Denies significant issues. PSA HISTORY: PSA (ng/mL) Date Value 12/07/2024 <0.02 08/24/2024 <0.02 04/26/2024 0.18 03/31/2024 0.12 ALLERGIES Allergen Reactions Ciprofloxacin Hives Tadalafil (CIALIS) 5 mg tablet Take 1 tablet by mouth once daily. pravastatin (PRAVACHOL) 40 mg tablet Take 40 [...] fluticasone (FLONASE) 50 mcg/actuation nasal spray 1 Grover. relugolix (ORGOVYX) 120 mg tablet Take 1 tablet by mouth once daily. REVIEW OF SYSTEMS: D/N = 4-01/01 Hematuria: none Dysuria: none Incontinence: none Urgency: none Medications to aid urination: n Bowel movement frequency: 1/day Bowel movement quality: normal ADT: Eligard 22.5 06/06/2024) 09/13/24 45 mg PHYSICAL EXAM: There were no vitals taken for this visit. KPS: 100 General Appearance: Alert and oriented. No acute distress. ASSESSMENT/PLAN: Prostate adenocarcinoma, initial PSA 7.9, biopsy Christine score 4 + 5 = 9 (grade group 5), clinical stage T2c, N0, M0, status post robotic radical prostatectomy and bilateral pelvic lymph node dissection for 11/05/2023, Christine 8 (4+4) pT3a pN0, with detectable and rising post prostatectomy PSA, PSA 04/26/2024 0.18. Overall doing well with undetectable PSA. No significant posttreatment problems. Recommend follow-up in 3 to 4 months with consideration of continued ADT for a 12-month total duration. Signed by: Arnulfo Kamara MD cc: Alek Mendoza Fatima [address] [place] [address] Roxy Armstrong RN 12/16/2024 10:31 AM Signed AUZach 4 Roxy Armstrong RN Allergies As of Date: 12/14/2024 Noted Allergy Reaction CIPROFLOXACIN 11/12/2023 4 - Hives Date Reviewed: 12/14/2024 Reviewed by: Roxy Armstrong RN - Fully Assessed Reason for Visit: Prostate Cancer [590] Primary Visit Diagnosis:Malignant neoplasm of prostate (HCC) [C61] Order(s):PROSTATE-SPECIFIC ANTIGEN DIAGNOSTIC [SQPSA] Order #: [id number] FUTURE Prescriptions as of 12/16/2024 - Tadalafil (CIALIS) 5 mg tablet Take 1 tablet by mouth once daily. - pravastatin (PRAVACHOL) 40 mg tablet Take [...] fluticasone (FLONASE) 50 mcg/actuation nasal spray 1 Grover. Problem List As Of Date 12/14/2024 Noted Resolved Chronic ischemic heart disease [I25.9] [...] Diagnosed: 11/03/2023 Prostate cancer (HCC) [C61] 11/05/2023 History of prostate cancer (more content not included)... Normal [facility] 36on 12-07-2024 36 Regarding stress huey t result from 2024: Ethan Lynne, JC Crandall MA Please let him know his ECHO looked good, things are stable. Follow-up as planned in 1 year. Thanks! Patient informed. Normal [facility] Prostate specific Ag [Mass/Vol] ng/mL Normal <2.60 [facility] Comment on above: Order Comment: Speci men Type: BLOOD SPECIMENOrdering Facility: [facility] Address: [address] [place] [address] Result Comment: Quintina ede PSA test methodology used is the Electrochemiluminescence Immunoassay by [employer]. Total PSA values by differing methodologies cannot be interchanged. Performed By: #### 2 [id number] ####[facility] LABCLIA [id number] [place] [address] [place] CNOVon 11-02-2024 CNOV Office Visit (GENSAM ) SHERRI,SUKHDEEP Donaldson ([id number]) 1960 M Date Time Provider Department 11/02/24 10:40 AM PORFIRIO CASTANEDA During your visit today, we recorded the following information about you: Porfirio Castaneda DO 11/02/2024 11:46 AM Signed SERVICE DATE: 11/02/2024 SERVICE TIME: 11:00 AM SERVICE: General Surgery SUBJECTIVES: Min pain, mild swelling, no drainage from wound. Admits to leakage from penis, probably related to prostate surgery. OBJECTIVES: There were no vitals taken for this visit. , There is no height or weight on file to calculate BMI. GENERAL: Healthy, alert, no distress, cooperative ABDOMEN: Soft, nontender; expected soft tissue around incision in the left groin without drainage. Mild induration of the wound. WOUND: Clean, dry and intact SENSITIVE EXAMINATION CONSENT: The sensitive examination was discussed with the Patient or Patient's Authorized Automotive Painter Helper. As applicable, any other physician, advance practice provider, medical student, or other health professional student that will be observing or involved in the sensitive examination for educational or training purposes was discussed with the Patient or Authorized Automotive Painter Helper. The Patient or Authorized Automotive Painter Helper has agreed to proceed with the sensitive examination. (Sensitive examination includes inspection and/or palpation of the breasts, pelvis, prostate and anorectal regions) Assessment ASSESSMENT: S/p open LIH repair with mesh POD#16 Satisfactory recovery and wound healing PLAN: Continue local and current wound care Diet and activity as tolerated RTC as needed SIGNATURE: Brando Castaneda DO PATIENT NAME: Sukhdeep Gamino DATE: November 02, 2024 TIME: 11:44 AM PAGER: Allergies As of Date: 11/02/2024 Noted Allergy Reaction CIPROFLOXACIN 11/12/2023 4 - Hives Date Reviewed: 10/17/2024 Reviewed by: Letty Rodriguez, BOY - Fully Assessed Reason for Visit: Post Op Follow Up [3947] Cmt: Pod 17 f/u after having left inguinal hernia. Primary Visit Diagnosis:Postop check [Z09] Prescriptions as of 11/02/2024 - relugolix (ORGOVYX) 120 mg tablet Take 1 tablet by mouth once daily. - Tadalafil (CIALIS) 5 mg tablet Take 1 tablet by mouth once daily. - pravastatin (PRAVACHOL) 40 mg tablet Take [...] fluticasone (FLONASE) 50 mcg/actuation nasal spray 1 Grover. Problem List As Of Date 11/02/2024 Noted Resolved Chronic ischemic heart disease [I25.9] [...] Diagnosed: 11/03/2023 Prostate cancer (HCC) [C61] 11/05/2023 History of prostate cancer [Z85.46] 10/03/2024 Coronary artery disease involving tununak penaloza*10/03/2024 Encounter Status:Closed by BRANDO CASTANEDA on 11/02/24 [facility] 10-19-2024 [facility] Telephone ([employer]) SUKHDEEP GAMINO ([id number]) 1960 M Date Time Provider Department 10/19/24 MARYAN JOHNSTON During your visit today, we recorded the following information about you: Maryan Johnston RN 10/19/2024 11:32 AM Signed Called patient and received VM. Informed if any questions or concerns to please call the office or may MyChart. If no questions or concerns then we will see at scheduled post-op appt. Informed if any questions or concerns arise before then to please call. Office number left to contact. Allergies As of Date: 10/19/2024 Noted Allergy Reaction CIPROFLOXACIN 11/12/2023 4 - Hives Date Reviewed: 10/17/2024 Reviewed by: Letty Rodriguez, BOY - Fully Assessed Prescriptions as of 10/19/2024 - HYDROcodone-acetaminophen (NORCO) 5-325 mg per tablet Take 1 tablet by mouth every 6 hours as needed for pain for up to 5 days. - relugolix (ORGOVYX) 120 mg tablet Take 1 tablet by mouth once daily. - Tadalafil (CIALIS) 5 mg tablet Take 1 tablet by mouth once daily. - pravastatin (PRAVACHOL) 40 mg tablet Take [...] fluticasone (FLONASE) 50 mcg/actuation nasal spray 1 Grover. Problem List As Of Date 10/19/2024 Noted Resolved Chronic ischemic heart disease [I25.9] [...] Diagnosed: 11/03/2023 Prostate cancer (HCC) [C61] 11/05/2023 History of prostate cancer [Z85.46] 10/03/2024 Coronary artery disease involving [place] penaloza*10/03/2024 Encounter Status:Closed by MARYAN JOHNSTON on 10/19/24 Normal [facility] ANES POSTPROC EVALon 025 ANES POSTPROC EVAL HNO ID: [id number] Author: NISA BUSTOS MD Service: Anesthesiology Author Type: Physician Type: Anesthesia Postprocedure Evaluation Filed: 10/17/2024 17:47 Note Text: POST ANESTHESIA EVALUATION NOTE : 1960 Procedure Summary Date: 10/17/24 Room / Location: AV OR05 / AV OR Anesthesia Start: 1242 Anesthesia Stop: 1421 Procedure: HERNIORRHAPHY INGUINAL ELECTIVE ADULT REDUCIBLE (Left: Groin) Diagnosis: Non-recurrent unilateral inguinal hernia without obstruction or gangrene (Non-recurrent unilateral inguinal hernia without obstruction or gangrene [K40.90]) Surgeons: Porfirio Castaneda DO Responsible Provider: Nisa Bustos MD Anesthesia Type: general ASA Status: 3 Anesthesia Type: general Airway Type: LMA Last Vitals Vitals Value Taken Time BP 154/108 10/17/24 1510 Temp 36.7 ?C (98.1 ?F) 10/17/24 1420 HR SpO2 90 10/17/24 1511 Resp 28 10/17/24 1512 SpO2 97 % 10/17/24 1511 Vitals shown include unfiled device data. Post Anesthesia Patient Status Patient Evaluation: PACU. PACU/ICU Patient Condition: stable. Anticipated Disposition: phase 2 then home. Neurological Status: aware and responsive. Pulmonary Status: breathing comfortably on room air Airway Control: returned to baseline unsupported. Cardiovascular Status: stable. Pain Management: clinically adequate Postoperative Hydration: acceptable. Intraoperative Events: no significant anesthesia events Post Operative Nausea/Vomiting Status: no significant post operative nausea or vomiting Recommendation: further care per PACU/ICU/floor team. Anesthesia Observations No Documentation SIGNATURE: Nisa Bustos MD PATIENT NAME: Sukhdeep Gamino DATE: October 17, 2024 TIME: 5:47 PM CSN: [id number] [facility] ANES PRE-OPon 10-17-2024 ANES PRE-OP HNO ID: [id number] Author: ERICA JIMÉNEZ MD Service: Anesthesiology Author Type: Anesthesiologist Type: Anesthesia Preprocedure Evaluation Filed: 10/17/2024 11:59 Note Text: ANESTHESIOLOGY DAY OF SURGERY NOTE : 1960 Procedure Information Date/Time: 10/17/24 1157 Procedure: HERNIORRHAPHY INGUINAL ELECTIVE ADULT REDUCIBLE (Left: Groin) Location: AV OR05 / AV OR Surgeons: Porfirio Castaneda DO Estimated body mass index is 28.55 kg/m? as calculated from the following: Height as of this encounter: 177.8 cm (5' 10 ). Weight as of this encounter: 90.3 kg (199 lb). Most recent hematocrit and potassium results: Hematocrit 38.1 10/03/2024 Potassium 4.0 10/03/2024 Relevant Problems CARDIO (+) Coronary artery disease involving [place] coronary artery of [place] heart without angina pectoris (+) Essential hypertension (+) Paroxysmal atrial fibrillation (HCC) NEURO-PSYCH (+) History of prostate cancer PULMONARY (+) Asthma ECHO, 11/03/2023: CONCLUSIONS: - Exam indication: Pre-op non-cardiac, H/o Afib, HF - The left ventricle is normal in size. Left ventricular systolic function is normal. EF = 53 ? 5% (2D biplane) Left ventricular diastolic function [...] a prior CC echocardiographic exam for comparison. I - PHYSICAL EVALUATION AIRWAY Patient intubated: No. Tracheostomy tube not present Mallampati: II. TM distance: >3 FB. Neck ROM: full ROM without neurological symptoms. Mouth opening: adequate. Short neck: no. Thick neck: no DENTAL Dental findings: teeth intact. II - ANESTHESIA PLAN ASA Score: 3 Anesthetic Plan: general Airway type: ETT The patient is not a current smoker. NPO Status: adequate Beta José Miguel Monitoring Plan Monitoring plan: standard ASA. Post Procedure Analgesic Plan Postoperative analgesic plan: parenteral or oral opioids and multimodal analgesia. Informed Consent Anesthetic risks, benefits, alternatives, personnel and consent discussed: yes. Patient / Responsible Libertarian agrees to proceed: yes Patient / Surrogate agrees to blood products: Yes Significant changes in the patient condition since the History and Physical, not otherwise documented in primary service progress note: no. Potential Anesthesia issues that may suggest increased risk of complications or contraindication to planned procedure: none. Vitals Value Taken Time BP 162/111 10/17/24 1117 Pulse Resp 16 10/17/24 1117 Temp 36.5 ?C (97.7 ?F) 10/17/24 1117 SpO2 100 % 10/17/24 1117 Facility-Administered Medications as of 10/17/2024 Medication Dose Route Frequency lidocaine (PF) 10 mg/mL (1 %) 1-2 mg injection (XYLOCAINE) 0.1-0.2 mL INTRADERMAL PRN lactated ringers iv infusion 5-30 mL/hr INTRAVENOUS CONTINUOUS NaCl 0.9% iv flush bag 20 mL INTRAVENOUS PRN ceFAZolin iv piggyback 2 g in D5W (iso-osmotic) 100 mL (ANCEF) 2 g INTRAVENOUS Pre-Op Once [COMPLETED] acetaminophen 1,000 mg tab(s) (TYLENOL) 1,000 mg ORAL Pre-Op Once [COMPLETED] promethazine 12.5 mg tab(s) (PHENERGAN) 12.5 mg ORAL Pre-Op Once Outpatient Medications as of 10/17/2024 Medication Sig pravastatin (PRAVACHOL) 40 mg tablet Take 40 mg by mouth daily at bedtime. dilTIAZem CD (CARDIZEM CD, CARTIA XT) 120 mg 24 hr capsule TAKE 1 CAPSULE BY MOUTH ONCE DAILY DIRECTED carvedilol (COREG) 25 mg tablet TAKE 1 TABLET BY MOUTH IN THE MORNING AND AT BEDTIME lisinopril (ZESTRIL) 10 mg tablet Take 10 mg by mouth once daily. fluticasone (FLONASE) 50 mcg/actuation nasal spray 1 Grover. relugolix (ORGOVYX) 120 mg tablet Take 1 tablet by mouth once daily. Tadalafil (CIALIS) 5 mg tablet Take 1 tablet by mouth once daily. warfarin (COUMADIN) 6 mg tablet Take 1 tablet by mouth every afternoon. I have interviewed and examined the patient. I have reviewed the medical record and/or the pre-anesthesia evaluation, pertinent labs, and test results. This contains updated information obtained within 48 hours of Surgery/Procedure. SIGNATURE: Erica Jiménez MD PATIENT NAME: Sukhdeep Gamino DATE: October 17, 2024 TIME: 11:57 AM CSN: [id number] [facility] BRIEF OP NOTon 10-17-2024 BRIEF OP NOT HNO ID: [id number] Author: PORFIRIO CASTANEDA DO Service: General Surgery Author Type: Physician Type: Brief Op Note Filed: 10/17/2024 14:07 Note Text: BRIEF OPERATIVE / PROCEDURE NOTE LOG ID: [id number] SURGERY/PROCEDURE DATE: 10/17/2024 INCISION/PROCEDURE START TIME: 1:00 PM INCISION CLOSE/PROCEDURE END TIME: SURGEON(S)/PROCEDURALIST(S) AND FAMILY ASSISTANT(S): Surgeons and Role: * Porfirio Castaneda DO - Primary Physician Noise Abatement Engineer: Juju Barrientos PA-C SURGERY/PROCEDURE(S): Open left inguinal hernia repair with mesh ANESTHESIA: General FINDINGS: large left inguinal hernia, incarcerated with sigmoid colon, chronic with dense adhesion ESTIMATED BLOOD LOSS: 25 mL SPECIMENS: None COMPLICATIONS: None CLOSURE TECHNIQUE: Primary PRE-OP/PRE-PROCEDURE DIAGNOSIS: Left incarcerated inguinal hernia POST-OP/POST-PROCEDURE DIAGNOSIS: Same as Preop Patient was accompanied to the next level of care by a licensed practitioner from the surgical team pending completion of this brief op note (or operative note) SIGNATURE: Brando Castaneda DO PATIENT NAME: Sukhdeep Gamino DATE: October 17, 2024 TIME: 2:06 PM [facility] OPERATIVE NOon 10-17-2024 OPERATIVE NO HNO ID: [id number] Author: PORFIRIO CASTANEDA DO Service: General Surgery Author Type: Physician Type: Operative Report Filed: 10/17/2024 14:44 Note Text: OPERATIVE REPORT [facility] NAME: Sukhdeep Gamino [facility] #: [id number] DATE: October 17, 2024 AGE: [age] year old SURGEON 1: Porfirio Castaneda D.O. FAMILY ASSISTANT 1: JOSEPH Pelayo No qualified resident was available to perform the service. OPERATION: open left inguinal hernia repair with mesh ANESTHESIA: General PREOPERATIVE DIAGNOSIS: left non-reducible inguinal hernia POSTOPERATIVE DIAGNOSIS: left non-reducible inguinal hernia OPERATIVE INDICATIONS: The patient is a 63 year old male with history of large left incarcerated inguinal bulge and pain. Patient was seen and evaluated in the surgery office. Discussion was made with the patient regarding open inguinal hernia repair with possible mesh for treatment of symptomatic inguinal hernia. Informed consent was obtained from the patient. The patient understood risks, benefits, and alternatives of the procedure and agreed to procedure described above. OPERATIVE FINDINGS: large incarcerated left inguinal hernia containing sigmoid colon with chronic dense adhesion OPERATIVE PROCEDURE: The patient was brought to the operating room and laid in supine position. General anesthesia was provided by Anesthesia team. Abdominal area and bilateral groin areas were prepped and draped in usual sterile fashion. After local anesthetic was used, in the inguinal area, a left inguinal incision was made, which was then carried down to the external oblique aponeurosis. It was cut open towards the external inguinal ring and the underlying spermatic cord structure was identified. Spermatic cord was up lifted away with khalif drain from the underlying inguinal floor. The ilioinguinal nerve was also identified and cut out to prevent chronic pain, neuralgia or nerve entrapment . Once the spermatic cord was isolated, dissection was performed at the medial edge of the spermatic cord. There was a very large bulge within the spermatic cord. This was consistent with indirect inguinal hernia. The large bulge was non-reducible. The hernia sac was opened and we found sigmoid colon with dense adhesion within the hernia sac. The sigmoid colon was dissected free and reduced back into the abdomen via the internal inguinal ring which was widened and weakened. The internal inguinal ring and the weakened inguinal floor was repaired and approximated with #0 Vicryl suture and care was taken not to injure the spermatic cord. At this time, inguinal hernia patch from [employer] Pro[employer]rip mesh was cut to appropriate size and was placed onto the inguinal floor with its apex sutured to the left pubic tubercle using 0 Vicryl. The repair was satisfactory and no signs of injury. The spermatic cord was placed back onto the mesh. The aponeurosis was then closed with a running 3-0 Vicryl suture to recreate the external inguinal ring. Hemostasis was checked at this time. No signs of active bleeding. Subcutaneous tissue was closed with a 3-0 Vicryl. Dermal layer was closed with a 3-0 Vicryl. Skin was closed with a 4-0 Monocryl. Sterile dressing was applied. The patient tolerated the procedure well. He was then transferred to recovery for postprocedural care. PA's task in this procedure: opening and closing of incision, retraction and exposure of the wound INCISION/PROCEDURE START TIME: 1:00 PM INCISION CLOSE/PROCEDURE END TIME: 2:12 PM ESTIMATED BLOOD LOSS: 25 mL DRAINS: none SPECIMENS: none CONDITION: Stable. COMPLICATIONS: None apparent. Brando Castaneda, October 17, 2024 2:10 PM Normal [facility] Basic metabolic 2000 panelon 10-03-2024 Anion gap [Moles/Vol] 9 mmol/L Normal 8-15 [facility] Comment on above: Order Comment: Speci men Type: BLOOD SPECIMENOrdering Facility: [facility] Address: [address] [place] [address] Performed By: #### 2 4321-2 ####[facility] LABCLIA [id number] [place] [address] [place] Calcium [Mass/Vol] 9.7 mg/dL Normal 8.5-10.2 [facility] Comment on above: Order Comment: Speci men Type: BLOOD SPECIMENOrdering Facility: [facility] Address: [address] [place] [address] Performed By: #### 2 4321-2 ####[facility] LABCLIA [id number] [place] [address] [place] Chloride [Moles/Vol] 109 mmol/L High 98-107 [facility] Comment on above: Order Comment: Speci men Type: BLOOD SPECIMENOrdering Facility: [facility] Address: [address] [place] [address] Performed By: #### 2 4321-2 ####[facility] LABCLIA [id number] [place] [address] [place] CO2 [Moles/Vol] 27 mmol/L Normal 22-30 [facility] Comment on above: Order Comment: Speci men Type: BLOOD SPECIMENOrdering Facility: [facility] Address: [address] [place] [address] Performed By: #### 2 4321-2 ####[facility] LABCLIA [id number] [address] STATES OF [facility] Creatinine [Mass/Vol] 1.18 mg/dL Normal 0.73-1.22 [facility] Comment on above: Order Comment: Speci men Type: BLOOD SPECIMENOrdering Facility: [facility] Address: [address] [place] [address] Performed By: #### 2 4321-2 ####[facility] LABCLIA [id number] [address] Creatinine and Glomerular filtration rate.predicted panel (S/P/Bld) 68 mL/min/1.73m??? Normal >=60 [facility] Comment on above: Order Comment: Speci men Type: BLOOD SPECIMENOrdering Facility: [facility] Address: [address] [place] [address] Result Comment: Jamila mated Glomerular Filtration Rate [...] actual GFR. Performed By: #### 2 4321-2 ####[facility] LABCLIA [id number] [address] [address] [place] Glucose [Mass/Vol] 79 mg/dL Normal 74-99 [facility] Comment on above: Order Comment: Speci men Type: BLOOD SPECIMENOrdering Facility: [facility] Address: [address] [place] [address] Result Comment: The [employer] Diabetes Association (ADA) provides guidance for cutoff [...] Standards of Medical Care in Diabetes 2016, [employer]. Diabetes Care. 2016.39(Suppl 1). Performed By: #### 2 4321-2 ####[facility] LABIA [id number] [place] [address] [place] Potassium [Moles/Vol] 4.0 mmol/L Normal 3.7-5.1 [facility] Comment on above: Order Comment: Speci men Type: BLOOD SPECIMENOrdering Facility: [facility] Address: [address] [place] [address] Performed By: #### 2 4321-2 ####[facility] LABIA [id number] [place] [address] [place] Sodium [Moles/Vol] 145 mmol/L High 136-144 [facility] Comment on above: Order Comment: Speci men Type: BLOOD SPECIMENOrdering Facility: [facility] Address: [address] [place] [address] Performed By: #### 2 4321-2 ####[facility] LABIA [id number] [place] [address] [place] Urea nitrogen [Mass/Vol] 18 mg/dL Normal 9-24 [facility] Comment on above: Order Comment: Speci men Type: BLOOD SPECIMENOrdering Facility: [facility] Address: [address] [place] [address] Performed By: #### 2 4321-2 ####[facility] LABCLIA [id number] [place] [address] [place] CBC panel Auto (Bld)on 10-03 Erythrocyte distribution width (RBC) [Ratio] 14.6 % Normal 11.5-15.0 [facility] Comment on above: Order Comment: Speci men Type: BLOOD SPECIMENOrdering Facility: [facility] Address: [address] [place] [address] Performed By: #### 5 8410-2 ####[facility] LABCLIA [id number] [address] [place] Hematocrit (Bld) [Volume fraction] 38.1 % Low 39.0-51.0 [facility] Comment on above: Order Comment: Speci men Type: BLOOD SPECIMENOrdering Facility: [facility] Address: [address] [place] [address] Performed By: #### 5 8410-2 ####[facility] LABCLIA [id number] [address] [place] Hemoglobin (Bld) [Mass/Vol] 12.3 g/dL Low 13.0-17.0 [facility] Comment on above: Order Comment: Speci men Type: BLOOD SPECIMENOrdering Facility: [facility] Address: [address] [place] [address] Performed By: #### 5 8410-2 ####[facility] LABCLIA [id number] [place] [address] [place] MCH (RBC) [Entitic mass] 31.3 pg Normal 26.0-34.0 [facility] Comment on above: Order Comment: Speci men Type: BLOOD SPECIMENOrdering Facility: [facility] Address: [address] [place] [address] Performed By: #### 5 8410-2 ####[facility] LABIA [id number] [place] [address] [place] MCHC (RBC) [Mass/Vol] 32.3 g/dL Normal 30.5-36.0 [facility] Comment on above: Order Comment: Speci men Type: BLOOD SPECIMENOrdering Facility: [facility] Address: [address] [place] [address] Performed By: #### 5 8410-2 ####[facility] [id number] [place] [address] [place] MCV (RBC) [Entitic vol] 96.9 fL Normal 80.0-100.0 [facility] Comment on above: Order Comment: Speci men Type: BLOOD SPECIMENOrdering Facility: [facility] Address: [address] [place] [address] Performed By: #### 5 8410-2 ####[facility] [id number] [place] [address] [place] Nucleated RBC (Bld) [#/Vol] 10*3/uL Normal <0.01 [facility] Comment on above: Order Comment: Speci men Type: BLOOD SPECIMENOrdering Facility: [facility] Address: [address] [place] [address] Performed By: #### 5 8410-2 ####[facility] [id number] [place] [address] [place] Platelet mean volume (Bld) [Entitic vol] 9.0 fL Normal 9.0-12.7 [facility] Comment on above: Order Comment: Speci men Type: BLOOD SPECIMENOrdering Facility: [facility] Address: [address] [place] [address] Performed By: #### 5 8410-2 ####[facility] LABIA [id number] [address] [address] [place] Platelets (Bld) [#/Vol] 276 10*3/uL Normal 150-400 [facility] Comment on above: Order Comment: Speci men Type: BLOOD SPECIMENOrdering Facility: [facility] Address: [address] [place] [address] Performed By: #### 5 8410-2 ####[facility] LABIA [id number] [address] [address] [place] RBC (Bld) [#/Vol] 3.93 10*6/uL Low 4.20-6.00 [facility] Comment on above: Order Comment: Speci men Type: BLOOD SPECIMENOrdering Facility: [facility] Address: [address] [place] [address] Performed By: #### 5 8410-2 ####[facility] [id number] [address] [address] [place] WBC (Bld) [#/Vol] 6.79 10*3/uL Normal 3.70-11.00 [facility] Comment on above: Order Comment: Speci men Type: BLOOD SPECIMENOrdering Facility: [facility] Address: [address] [place] [address] Performed By: #### 5 8410-2 ####[facility] LABIA [id number] [address] [address] [place] ECG COMPLETEon 10-03-2024 ECG COMPLETE Ventricular Rate : 1 01 BPM QRS Duration : 80 ms Q-T Interval : 360 ms QTC Calculation(Bazett) : 466 ms Calculated R Section : -29 degrees Calculated T Section : 17 degrees ATRIAL FIBRILLATION WITH RAPID VENTRICULAR RESPONSE WITH PREMATURE VENTRICULAR COMPLEXES LOW VOLTAGE QRS, CONSIDER PULMONARY DISEASE, PERICARDIAL EFFUSION, OR NORMAL VARIANT ABNORMAL ECG Confirmed by CATRACHO BRANDON MD ([id number]) on 10/04/2024 1:51:26 PM NAME : SUKHDEEP GAMINO PID : [id number] : 1960 Gender : Male Race : Unknown ORD : [id number] Procedure Date : Oct 03 2024 14:41:42 Edit Date : Oct 04 2024 13:52:42 Diagnosis: ATRIAL FIBRILLATION WITH RAPID VENTRICULAR RESPONSE WITH PREMATURE VENTRICULAR COMPLEXES LOW VOLTAGE QRS, CONSIDER PULMONARY DISEASE, PERICARDIAL EFFUSION, OR NORMAL VARIANT ABNORMAL ECG Confirmed by CATRACHO BRANDON MD ([id number]) on 10/04/2024 1:51:26 PM Test Reason : PRE OP Location : 545 : [facility] Overread By : ACTRACHO BRANDON MD Edited By : CATRACHO BRANDON MD Referred By : PORFIRIO CASTANEDA Acquired by : Mayela CHOI [facility] HISTORY PHYSICALon HISTORY PHYSICAL HNO ID: [id number] Author: HAILY CLINE APRN.CNP Service: ? Author Type: Nurse Practitioner Type: H&P Filed: 10/06/2024 08:34 Note Text: [facility] HISTORY AND PHYSICAL EXAMINATION SERVICE DATE: 10/03/2024 SERVICE TIME: 2:59 PM PRIMARY CARE PHYSICIAN: Alek Fatima MD Assessment Patient has the following medical conditions which may affect zehra-operative course: Paroxysmal atrial fibrillation (HCC) Assessment: Persistent, Long standing Rate controlled, did auscultate runs of increasing HR/frequency 10/03/2024 EKG performed; Stable, no acute changes observed. Pt. is Asymptomatic Follows with Dr. Adriana Soto ([facility] 09/29/2024) for Pre-op; Risk assessment completed. Mixed hyperlipidemia Assessment: Managed with Statin , Stable. Essential hypertension Assessment: Managed with med, stable. Date: BP: 10/03/2024 119/69 09/21/2024 142/81 09/13/2024 134/83 Chronic systolic (congestive) heart failure (HCC) Assessment: Stable with current regimen , EF = 53 ? 5%( 11/2023 ECHO ) Compensated Coronary artery disease involving [place] coronary artery of [place] heart without angina pectoris Assessment: CAD 30-40% stenosis in LAD per 2020 CARDIAC CATH No stents Pt. currently Denies any new or worsening cardiovascular symptoms Asthma Assessment: Receives Allergy shots, No current inhaler use. Stable per Pt. report History of prostate cancer Assessment: s/p radical prostatectomy and radiation ( 2023) Follows with urology, Radiation/ONC ANESTHESIA FINDINGS: Intubation History: No history of difficult intubation Significant Anesthesia Considerations: none Airway History: No history of difficult airway Saravia Activity Status Index: METS: Walk indoors, such as around the house (1.75 METs) Do light work around the house, such as dusting or washing dishes (2.70 METs) Take care of self; that is eating, dressing, bathing, using the toilet (2.75 METs) Walk a block or two on level ground (2.75 METs) Do moderate work around the house, such as vacuuming, sweeping floors, or carrying in groceries (3.50 METs) Do yardwork, such as raking leaves, weeding, or pushing a power mower (4.50 METs) Climb a flight of stairs or walk up a hill (5.50 METs) DASI Score: 23.45 Patient denies any chest pain or undue shortness of breath with the above physical activity. Clinical Frailty Scale: 3. Well, with treated comorbid disease STOP-Bang Score: Snores loudly Has or is being treated for high blood pressure Patient over 50 years old Has a large neck Male patient Denies feeling tired, fatigued, or sleepy during the daytime Has not been observed to stop breathing or choking/gasping during sleep BMI less than or equal to 35 kg/m2 STOP-Bang Score: 5 I - PHYSICAL EVALUATION AIRWAY Patient intubated: No. Mallampati: III. TM distance: >3 FB. Neck ROM: full ROM without neurological symptoms. Mouth opening: adequate. Short neck: no. Thick neck: yes Macias present: no Lip Bite Test: II Microretrognathia/Micronagt hia/Recessed Chin: No DENTAL Dental findings: teeth intact and missing tooth/teeth. II - ANESTHESIA PLAN Anesthetic plan additional comments: *PACC/TCI - anesthesia choice. Beta José Miguel Monitoring Plan Post Procedure Analgesic Plan Prepared for Surgery: optimally prepared for surgery. 09/29/2024 Cardiac Risk Assessment: Cardiac risk stratification -RCRI: 1 points, RCRI Score 6.0 % Risk of major cardiac event -Cath 2020: mild to mod dz in LAD -ECHO 11/2023: preserved LVEF -EKG today shows a.fib, no ischemic changes -He reports METS >4 -He is at low risk for a cardiovascular event for an intermediate risk procedure. -Okay to hold coumadin 5 days prior and resume as soon as cleared by surgeon. CONSULTS: Planned Anesthetic: anesthesia choice The Following Tests/Procedures Have Been Initiated: Orders Placed This Encounter Complete Blood Count Standing Status: Future Number of Occurrences: 1 Expected Date: 10/03/2024 Expiration Date: 01/02/2025 BMP Standing Status: Future Number of Occurrences: 1 Expected Date: 10/03/2024 Expiration Date: 01/02/2025 ECG COMPLETE Order Comments: Ordered by an unspecified provider ECG (IN OFFICE) REASON FOR VISIT: Sukhdeep Gamino is a 63 year old male who is scheduled for HERNIORRHAPHY INGUINAL ELECTIVE ADULT REDUCIBLE Procedure(s): HERNIORRHAPHY INGUINAL ELECTIVE ADULT REDUCIBLE (Left) at the request of Dr. Porfirio Castaneda for consultation. My final recommendation will be communicated back to the requesting physician by way of shared medical record or letter. Subjective COVID-19 Immunization Status Current Care Gaps Covid-19 Vaccine ( season) Overdue since 04/03/2024 11/01/2020 Imm Admin: COVID-19 original vaccine, age 12+ yr, monovalent ([employer] - PURPLE TOP) 10/11/2020 Imm Admin: COVID-19 original vaccine, (more content not included)... Normal [facility] Office Visiton 09-29-2024 Follow-up visit [id number] Sukhdeep Gamino 1960 M Date Provider Department Center 09/29/2024 ETHAN UMAÑA CARD [facility] No family history on file Level of Service:60027 [place] OFFICE/OUTPATIENT ESTABLISHED MOD MDM 30 MIN Reason for Visit and Comments: Coronary Artery Disease [187] Hypertension [079981] Normal [facility] CNOVon 09-21-2024 CNOV Office Visit (GENSA ) SUKHDEEP GAMINO ([id number]) 1960 M Date Time Provider Department 09/21/24 9:40 AM PORFIRIO CASTANEDA During your visit today, we recorded the following information about you: Pulse Blood pressure Weight Height 76/minute 142/81 88.2 kg 1.778 m Porfirio Castaneda DO 09/21/2024 6:04 PM Signed SERVICE DATE: 09/21/2024 SERVICE TIME: 9:49 AM SERVICE: General Surgery REFERRAL PHYSICIAN: Arnulfo Harley [facility] Dr JOSEPH ANGEL [id number] Sukhdeep Donaldson Alfredojacquelyn is here today at the request of Arnulfo [place] Teresa ANGEL [phone] for my opinion regarding left inguinal hernia. My final recommendation will be communicated back to the requesting physician by way of shared medical record or letter. Assessment ASSESSMENT: Large incarcerated left inguinal hernia PLAN: I have discussed with patient regarding open left inguinal hernia repair with mesh. Risks, benefits and alternatives were discussed. Risks including but not limited to bleeding, pain, infection, scar(s), chronic pain after surgery, repeat procedure, injuries to surrounding skin and soft tissue, testicular structures, intra-abd organs, seroma formation, mesh complication, possible recurrence of symptoms, prolong hospital/surgical stay, cardiopulmonary event, seizure, stroke, allergic reaction to administered medication and . Patient's questions were answered to his satisfaction. Patient understands and wishes to proceed with surgery. On coumadin. Will get cardiac clearance prior to schedule. Contact info and brochure given to patient as well. Travel and lifting weight limit restrictions also discussed. Patient is fully aware of these restrictions. HPI: 63 year old y/o male referred from radiation oncologist for evaluation of a left groin bulge. Patient states he has had the bulge for about 5 years but due to insurance and health issues was unable to address. Last year patient underwent a radical prostatectomy for prostate cancer and since that time he feels the bulge is larger and harder to push in . He does wear a belt to the area that helps minimize the pain to a 1/10. Pain is worse with coughing and denotes as dull in nature. PAST MEDICAL HISTORY Diagnosis Date Asthma Atrial fibrillation (HCC) CHF (congestive heart failure) (HCC) NEGATIVE HISTORY OF 09/21/2024 No pn,tb,dm PAST SURGICAL HISTORY Procedure Laterality Date SINUS SURGERY HX TOTAL HIP REPLACEMENT Right 2020 MEDICATIONS: Current Outpatient Medications: Tadalafil (CIALIS) 5 mg tablet, Take 1 tablet by mouth once daily., Disp: 90 tablet, Rfl: 1 pravastatin (PRAVACHOL) 40 mg tablet, Take 40 mg by mouth daily at bedtime., Disp: , Rfl: warfarin (COUMADIN) 6 mg tablet, Take 1 tablet by mouth every afternoon., Disp: , Rfl: dilTIAZem CD (CARDIZEM CD, CARTIA XT) 120 mg 24 hr capsule, TAKE 1 CAPSULE BY MOUTH ONCE DAILY DIRECTED, Disp: , Rfl: carvedilol (COREG) 25 mg tablet, TAKE 1 TABLET BY MOUTH IN THE MORNING AND AT BEDTIME, Disp: , Rfl: lisinopril (ZESTRIL) 10 mg tablet, Take 10 mg by mouth once daily., Disp: , Rfl: fluticasone (FLONASE) 50 mcg/actuation nasal spray, 1 Grover., Disp: , Rfl: relugolix (ORGOVYX) 120 mg tablet, Take 1 tablet by mouth once daily., Disp: 30 tablet, Rfl: 5 acetaminophen (TYLENOL EXTRA STRENGTH) 500 mg tablet, Take 2 tablets by mouth every 8 hours as needed for pain for up to 40 doses., Disp: 40 tablet, Rfl: 0 ALLERGIES Allergen Reactions Ciprofloxacin Hives FAMILY HISTORY Problem Relation Age of Onset Breast Cancer Sister Social History Tobacco Use Smoking status: Never Smokeless tobacco: Never Substance Use Topics Alcohol use: Never Drug use: Never REVIEW OF SYSTEMS: GENERAL: No weight loss, malaise or fevers HEENT: Negative for frequent or significant headaches, No changes in hearing or vision, no nose bleeds or other nasal problems NECK: Negative for lumps, goiter, pain and significant neck swelling RESPIRATORY: Wheezing, Shortness of breath CARDIOVASCULAR: Hypertension, + CHF, + Atrial fib on Coumadin GI: No nausea, vomiting, or diarrhea : See HPI MUSCULOSKELETAL: Negative for joint pain or swelling, back pain or muscle pain SKIN: Positive for itching: right buttock PSYCH: Negative HEMATOLOGY/LYMPHOLOGY: finished radaition in 08/2024 and currently on hormone therpay for 6 months NEURO: No history of headaches, syncope, paralysis, seizures or tremors PHYSICAL EXAM: BP 142/81 Pulse 76 Ht 177.8 cm (5' 10 ) Wt 88.2 kg (194 lb 7.1 oz) BMI 27.90 kg/m? Body mass index is 27.9 kg/m?. GENERAL: Healthy, alert, no distress, cooperative SKIN: Skin color, texture, turgor normal. No rashes or lesions. HEAD/SINUSES: No significant findings ABDOMEN: Soft, nontender EXTREMITIES: No ulcers NEURO: Grossly normal cognition, motor function (more content not included)... Normal [facility] 09-21-2024 [facility] Telephone (DDQ) SUKHDEEP GAMINO ([id number]) 1960 M Date Time Provider Department 09/21/24 PORFIRIO CASTANEDA DDDelilah During your visit today, we recorded the following information about you: Cosmo Keita 09/21/2024 11:26 AM Signed Cosmo Keita 09/22/2024 8:05 AM Signed Cardiac/thinner letter efaxed to Dr Adriana Huff, will follow up. Cosmo Keita 09/27/2024 4:03 PM Signed Returned pt's call, our office is waiting for clearance, pt will contact Dr Huff to expedite. Cosmo Keita 09/28/2024 8:21 AM Signed Patient called office, he has appt schd on 09/29 9:[address]a [address] Dr Huff's partners, will follow up. Cosmo Keita 09/29/2024 1:18 PM Addendum Printable under scanned documents. Cosmo Keita 09/29/2024 1:19 PM Signed Patient called office, surgery scheduled on 10/17/[address] Castaneda in [place]. Open left inguinal hernia repair w mesh - general 2 hrs +Coumadin: pt reminded to stop 5 days prior -no diabetes Thank you. Allergies As of Date: 09/21/2024 Noted Allergy Reaction CIPROFLOXACIN 11/12/2023 4 - Hives Date Reviewed: 09/21/2024 Reviewed by: Leah lAbarran LPN - Fully Assessed Reason for Visit: Schedule Surgery [1330] Prescriptions as of 09/29/2024 - relugolix (ORGOVYX) 120 mg tablet Take 1 tablet by mouth once daily. - Tadalafil (CIALIS) 5 mg tablet Take [...] fluticasone (FLONASE) 50 mcg/actuation nasal spray 1 Grover. Problem List As Of Date 09/21/2024 Noted Resolved Chronic ischemic heart disease [I25.9] [...] Diagnosed: 11/03/2023 Prostate cancer (HCC) [C61] 11/05/2023 Letter Text Encounter Status:Closed by CAPUTOFERNANDO MELENDEZSY on 09/21/24 [facility] H[facility] PHYSICALon HISTORY PHYSICAL HNO ID: [id number] Author: PORFIRIO CASTANEDA, DO Service: ? Author Type: Physician Type: H&P Filed: 09/21/2024 18:04 Note Text: SERVICE DATE: 09/21/2024 SERVICE TIME: 9:49 AM SERVICE: General Surgery REFERRAL PHYSICIAN: Arnulfo ANGEL [id number] Sukhdeep Gamino is here today at the request of Arnulfo ANGEL [id number] for my opinion regarding left inguinal hernia. My final recommendation will be communicated back to the requesting physician by way of shared medical record or letter. Assessment ASSESSMENT: Large incarcerated left inguinal hernia PLAN: I have discussed with patient regarding open left inguinal hernia repair with mesh. Risks, benefits and alternatives were discussed. Risks including but not limited to bleeding, pain, infection, scar(s), chronic pain after surgery, repeat procedure, injuries to surrounding skin and soft tissue, testicular structures, intra-abd organs, seroma formation, mesh complication, possible recurrence of symptoms, prolong hospital/surgical stay, cardiopulmonary event, seizure, stroke, allergic reaction to administered medication and . Patient's questions were answered to his satisfaction. Patient understands and wishes to proceed with surgery. On coumadin. Will get cardiac clearance prior to schedule. Contact info and brochure given to patient as well. Travel and lifting weight limit restrictions also discussed. Patient is fully aware of these restrictions. HPI: 63 year old y/o male referred from radiation oncologist for evaluation of a left groin bulge. Patient states he has had the bulge for about 5 years but due to insurance and health issues was unable to address. Last year patient underwent a radical prostatectomy for prostate cancer and since that time he feels the bulge is larger and harder to push in . He does wear a belt to the area that helps minimize the pain to a 1/10. Pain is worse with coughing and denotes as dull in nature. PAST MEDICAL HISTORY Diagnosis Date Asthma Atrial fibrillation (HCC) CHF (congestive heart failure) (HCC) NEGATIVE HISTORY OF 09/21/2024 No pn,tb,dm PAST SURGICAL HISTORY Procedure Laterality Date SINUS SURGERY HX TOTAL HIP REPLACEMENT Right 2020 MEDICATIONS: Current Outpatient Medications: Tadalafil (CIALIS) 5 mg tablet, Take 1 tablet by mouth once daily., Disp: 90 tablet, Rfl: 1 pravastatin (PRAVACHOL) 40 mg tablet, Take 40 mg by mouth daily at bedtime., Disp: , Rfl: warfarin (COUMADIN) 6 mg tablet, Take 1 tablet by mouth every afternoon., Disp: , Rfl: dilTIAZem CD (CARDIZEM CD, CARTIA XT) 120 mg 24 hr capsule, TAKE 1 CAPSULE BY MOUTH ONCE DAILY DIRECTED, Disp: , Rfl: carvedilol (COREG) 25 mg tablet, TAKE 1 TABLET BY MOUTH IN THE MORNING AND AT BEDTIME, Disp: , Rfl: lisinopril (ZESTRIL) 10 mg tablet, Take 10 mg by mouth once daily., Disp: , Rfl: fluticasone (FLONASE) 50 mcg/actuation nasal spray, 1 Grover., Disp: , Rfl: relugolix (ORGOVYX) 120 mg tablet, Take 1 tablet by mouth once daily., Disp: 30 tablet, Rfl: 5 acetaminophen (TYLENOL EXTRA STRENGTH) 500 mg tablet, Take 2 tablets by mouth every 8 hours as needed for pain for up to 40 doses., Disp: 40 tablet, Rfl: 0 ALLERGIES Allergen Reactions Ciprofloxacin Hives FAMILY HISTORY Problem Relation Age of Onset Breast Cancer Sister Social History Tobacco Use Smoking status: Never Smokeless tobacco: Never Substance Use Topics Alcohol use: Never Drug use: Never REVIEW OF SYSTEMS: GENERAL: No weight loss, malaise or fevers HEENT: Negative for frequent or significant headaches, No changes in hearing or vision, no nose bleeds or other nasal problems NECK: Negative for lumps, goiter, pain and significant neck swelling RESPIRATORY: Wheezing, Shortness of breath CARDIOVASCULAR: Hypertension, + CHF, + Atrial fib on Coumadin GI: No nausea, vomiting, or diarrhea : See HPI MUSCULOSKELETAL: Negative for joint pain or swelling, back pain or muscle pain SKIN: Positive for itching: right buttock PSYCH: Negative HEMATOLOGY/LYMPHOLOGY: finished radaition in 08/2024 and currently on hormone therpay for 6 months NEURO: No history of headaches, syncope, paralysis, seizures or tremors PHYSICAL EXAM: BP 142/81 Pulse 76 Ht 177.8 cm (5' 10 ) Wt 88.2 kg (194 lb 7.1 oz) BMI 27.90 kg/m? Body mass index is 27.9 kg/m?. GENERAL: Healthy, alert, no distress, cooperative SKIN: Skin color, texture, turgor normal. No rashes or lesions. HEAD/SINUSES: No significant findings ABDOMEN: Soft, nontender EXTREMITIES: No ulcers NEURO: Grossly normal cognition, motor function GENITALIA MALE: A large, eggplant size left inguinal hernia extending into the left scrotum, non-reducible, min tender. Participation of a fellow, resident, medical student, or advanced practice provider student in performing the sensitive examination was discussed (more content not included)... Normal [facility] CNOVon 09-13-2024 CNOV Office Visit (RADTSA ) SUKHDEEP GAMINO ([id number]) 1960 M Date Time Provider Department 09/13/24 9:30 AM LAB/PORT RADT JOSEPH LÓPEZ During your visit today, we recorded the following information about you: Temperature Pulse Respiration Blood pressure 96.1 degrees 88/minute 16/minute 134/83 Roxy Armstrong RN 09/13/2024 9:[address] Roosevelt Bah info per your request [phone] Referring Provider: Arnulfo KAMARA [[id number]] Allergies As of Date: 09/13/2024 Noted Allergy Reaction CIPROFLOXACIN 11/12/2023 4 - Hives Date Reviewed: 08/26/2024 Reviewed by: Divina Braswell, BOY - Fully Assessed Reason for Visit: eligard injection [Other] Primary Visit Diagnosis:Malignant neoplasm of prostate (HCC) [C61] Order(s):[facility] PROVIDER APPOINTMENT REQUEST [201415643] Order #: [id number]: 1 FUTURE [facility] INFUSION APPOINTMENT REQUEST [[id number]] Order #: [id number]: 1 FUTURE TREATMENT PARAMETER-NOT NEEDED [[id number]] Order #: [id number]: 1 [facility] NURSING COMMUNICATION [[id number]] Order #: [id number]: 1 [facility] NURSING COMMUNICATION [[id number]] Order #: [id number]: 1 STANDING [] leuprolide 45 mg injection (ELIGARD)Disp: Rfl: NaCl 0.9% iv infusionDisp: Rfl: diphenhydrAMINE 50 mg injection (BENADRYL)Disp: Rfl: hydrocortisone sodium succinate (PF) 100 mg injection (Solu-CORTEF)Disp: Rfl: EPINEPHrine 1 mg/mL (1 mL) 0.3 mg injectionDisp: Rfl: [facility] NURSING COMMUNICATION [9990807] Order #: [id number]: 1 STANDING [facility] NURSING COMMUNICATION [[id number]] Order #: [id number]: 1 STANDING sodium chloride 0.9 % (flush) 10-20 mL (BD POSIFLUSH)Disp: Rfl: sodium chloride 0.9 % (flush) 10-20 mL (BD POSIFLUSH)Disp: Rfl: [facility] NURSING COMMUNICATION [[id number]] Order #: [id number]: 1 STANDING [facility] NURSING COMMUNICATION [[id number]] Order #: [id number]: 1 STANDING Prescriptions as of 09/14/2024 - relugolix (ORGOVYX) 120 mg tablet Take 1 tablet by mouth once daily. - Tadalafil (CIALIS) 5 mg tablet Take [...] fluticasone (FLONASE) 50 mcg/actuation nasal spray 1 Grover. Facility-Administered Medications as of 09/14/2024 - NaCl 0.9% iv infusion - diphenhydrAMINE 50 mg injection (BENADRYL) - hydrocortisone sodium succinate (PF) 100 mg injection (Solu-CORTEF) - EPINEPHrine 1 mg/mL (1 mL) 0.3 mg injection - sodium chloride 0.9 % (flush) 10-20 mL (BD POSIFLUSH) - sodium chloride 0.9 % (flush) 10-20 mL (BD POSIFLUSH) Problem List As Of Date 09/13/2024 Noted Resolved Chronic ischemic heart disease [I25.9] [...] Diagnosed: 11/03/2023 Prostate cancer (HCC) [C61] 11/05/2023 Other instructions from your clinician: Dr Roosevelt Bah info per your request [phone] Prescriptions ordered this encounter Disp Refills Start End LEUPROLIDE 22.5 MG (3 MONTH) SUBCUTA* 09/13/2024 09/13/2024 Route: SUBCUTANEOUS SODIUM CHLORIDE 0.9 % INTRAVENOUS SO* 09/13/2024 09/13/2024 Cmt: Inform physician Route: INTRAVENOUS DIPHENHYDRAMINE 50 MG/ML INJECTION S* 09/13/2024 09/13/2024 Route: INTRAVENOUS HYDROCORTISONE SOD SUCCINATE (PF) 10* 09/13/2024 09/13/2024 Route: INTRAVENOUS EPINEPHRINE 1 MG/ML (1 ML) INJECTION* 09/13/2024 09/13/2024 Route: INTRAMUSCULA SODIUM CHLORIDE 0.9 % (FLUSH) INJECT* 09/13/2024 09/13/2024 Route: INTRAVENOUS SODIUM CHLORIDE 0.9 % (FLUSH) INJECT* 09/13/2024 09/13/2024 Route: INTRAVENOUS LEUPROLIDE ACETATE 45 MG (6 MONTH) S* 09/13/2024 09/13/2024 Route: SUBCUTANEOUS SODIUM CHLORIDE 0.9 % INTRAVENOUS SO* 09/13/2024 Cmt: Inform physician Route: INTRAVENOUS DIPHENHYDRAMINE 50 MG/ML INJECTION S* 09/13/2024 Route: INTRAVENOUS HYDROCORTISONE SOD SUCCINATE (PF) 10* 09/13/2024 Route: INTRAVENOUS EPINEPHRINE 1 MG/ML (1 ML) INJECT (more content not included)... Normal [facility] CNPNon 09-06-2024 CNPN Telephone (RADTSA) SUKHDEEP GAMINO ([id number]) 1960 M Date Time Provider Department 09/06/24 Arnulfo KAMARA During your visit today, we recorded the following information about you: Roxy Armstrong, BOY 09/06/2024 8:54 AM Signed Pt called in to reschedule eligard injection as he has the flu currently. PSS- please move on epic to 09/13 at 9:30am. Pharmacy- can you please change date for orders. BOY Herring Trisha 09/06/2024 10:22 AM Signed Appointment for his Lupron is recheduled for 09/13/24 at 9:30AM Tish Pagan PSS Charlene Reynoso, [facility] 09/06/2024 11:35 AM Signed Done Hugo Reynoso PharmD, BCOP Allergies As of Date: 09/06/2024 Noted Allergy Reaction CIPROFLOXACIN 11/12/2023 4 - Hives Date Reviewed: 08/26/2024 Reviewed by: Divina Braswell RN - Fully Assessed Reason for Visit: Future Appointment [256] Prescriptions as of 09/06/2024 - relugolix (ORGOVYX) 120 mg tablet Take 1 tablet by mouth once daily. - Tadalafil (CIALIS) 5 mg tablet Take [...] fluticasone (FLONASE) 50 mcg/actuation nasal spray 1 Grover. Problem List As Of Date 09/06/2024 Noted Resolved Chronic ischemic heart disease [I25.9] [...] 11/05/2023 Encounter Status:Closed by CHARLENE REYNOSO on 09/06/24 [facility] CNOVon 08-26-2024 CNOV Office Visit (RADTSA ) SUKHDEEP GAMINO ([id number]) 1960 M Date Time Provider Department 08/26/24 9:15 AM Arnulfo KAMARA During your visit today, we recorded the following information about you: Weight 85.3 kg Arnulfo Kamara MD 09/02/2024 1:29 PM Signed Radiation Oncology - Follow Up Note PATIENT NAME: Sukhdeep Gamino PATIENT DIAGNOSIS: Prostate adenocarcinoma, initial PSA 7.9, biopsy [place] Gabriel score 4 + 5 = 9 (grade group 5), clinical stage T2c, N0, M0, status post robotic radical prostatectomy and bilateral pelvic lymph node dissection for 11/05/2023, Christine 8 (4+4) pT3a pN0, with detectable and rising post prostatectomy PSA, PSA 04/26/2024 0.18. RADIATION SUMMARY: DATES OF TREATMENT: 06/15/2024-08/05/2024 AREA TREATED: Pelvis and Prostate Bed DELIVERED DOSE: Area: Pelvis and Prostate Bed 4600 cGy in 23 fractions, 3 Arcs, IMRT, 10 MV with daily CBCT DELIVERED DOSE: Area: Prostate Bed Boost 2400 cGy in 12 fractions, 2 Arcs, IMRT, 10 MV with daily CBCT TOTAL: 7000 cGy in 35 fractions ELAPSED TIME: 51 days. INTERVAL HISTORY: The patient presents for routine follow-up after recent completion of radiation. Doing well. Denies significant issues. PSA HISTORY: PSA (ng/mL) Date Value 08/24/2024 <0.02 04/26/2024 0.18 03/31/2024 0.12 12/25/2023 0.03 ALLERGIES Allergen Reactions Ciprofloxacin Hives Tadalafil (CIALIS) [...] fluticasone (FLONASE) 50 mcg/actuation nasal spray 1 Grover. relugolix (ORGOVYX) 120 mg tablet Take 1 tablet by mouth once daily. REVIEW OF SYSTEMS: D/N = 4-01/01 Hematuria: none Dysuria: none Incontinence: none Urgency: none Medications to aid urination: n Bowel movement frequency: 1/day Bowel movement quality: normal ADT: Eligard 22.5 06/06/2024 PHYSICAL EXAM: Wt 85.3 kg (188 lb 0.8 oz) BMI 26.98 kg/m? KPS: 100 General Appearance: Alert and oriented. No acute distress. ASSESSMENT/PLAN: Prostate adenocarcinoma, initial PSA 7.9, biopsy Christine score 4 + 5 = 9 (grade group 5), clinical stage T2c, N0, M0, status post robotic radical prostatectomy and bilateral pelvic lymph node dissection for 11/05/2023, [place] Gabriel 8 (4+4) pT3a pN0, with detectable and rising post prostatectomy PSA, PSA 04/26/2024 0.18. Doing well after recent completion of salvage pelvis and prostate bed radiation. PSA undetectable. Given risk features plan to proceed with additional 6 months of ADT . Plan to recheck PSA in 3 to 4 months. Signed by: Arnulfo Kamara MD cc: Alek Fatima [address] [place] [id number] Arnulfo Kamara [address] [place] [address] [place] [address] Divina Braswell RN 09/02/2024 1:29 PM Signed AUA= 3 Referring Provider: Arnulfo KAMARA [[id number]] Allergies As of Date: 08/26/2024 Noted Allergy Reaction CIPROFLOXACIN 11/12/2023 4 - Hives Date Reviewed: 08/26/2024 Reviewed by: Divina Braswell RN - Fully Assessed Reason for Visit: Prostate Cancer [590] Primary Visit Diagnosis:Malignant neoplasm of prostate (HCC) [C61] Other Visit Diagnosis:Non-recurrent unilateral inguinal hernia without obstruction or gangrene [K40.90] Order(s):PROSTATE-SPECIFIC ANTIGEN DIAGNOSTIC [SQPSA] Order #: [id number] FUTURE CONSULT TO GENERAL SURGERY [9002] Order #: [id number]: 1 FUTURE Prescriptions as of 09/02/2024 - relugolix (ORGOVYX) 120 mg tablet Take 1 tablet by mouth once daily. - Tadalafil (CIALIS) 5 mg tablet Take [...] fluticasone (FLONASE) 50 mcg/actuation nasal spray 1 Grover. Problem List As Of Date 08/26/2024 Noted Resolved Chronic ischemic heart disease [I25.9] 01/02/2023 Diagnosed: 11/03/2023 Chronic systolic (spike (more content not included)... Normal [facility] PSA SerPl-ncon 08-24-2024 Prostate specific Ag [Mass/Vol] ng/mL Normal <2.60 [facility] Comment on above: Order Comment: Speci men Type: BLOOD SPECIMENOrdering Facility: [facility] Address: [address] [place] [address] Result Comment: Maykel mera PSA test methodology used is the Electrochemiluminescence Immunoassay by [employer]. Total PSA values by differing methodologies cannot be interchanged. Performed By: #### 2 [id number] ####[facility] LABCLIA [id number] [address] [place] CNOVon 08-01-2024 CNOV Office Visit (RADTSA ) SUKHDEEP GAMINO ([id number]) 1960 M Date Time Provider Department 08/01/24 8:15 AM Arnulfo KAMARA RADKESHAA During your visit today, we recorded the following information about you: Temperature Pulse Respiration Blood pressure 98.2 degrees 118/minute 16/minute 136/95 Weight 88.6 kg Arnulfo Kamara MD 08/01/2024 9:20 AM Signed Radiation Oncology - On Treatment Review (OTR) [...] Continue radiation as outlined. Arnulfo Kamara MD Allergies As of Date: 08/01/2024 Noted Allergy Reaction CIPROFLOXACIN 11/12/2023 4 - Hives Date Reviewed: 08/01/2024 Reviewed by: Divina Braswell RN - Fully Assessed Reason for Visit: Radiotherapy On-treatment Visit [1722] Primary Visit Diagnosis:Malignant neoplasm of prostate (HCC) [C61] Order(s):PROSTATE-SPECIFIC ANTIGEN DIAGNOSTIC [SQPSA] Order #: [id number] FUTURE Prescriptions as of 08/01/2024 - relugolix (ORGOVYX) 120 mg tablet Take 1 tablet by mouth once daily. - Tadalafil (CIALIS) 5 mg tablet Take [...] fluticasone (FLONASE) 50 mcg/actuation nasal spray 1 Grover. Problem List As Of Date 08/01/2024 Noted Resolved Chronic ischemic heart disease [I25.9] [...] cancer (HCC) [C61] 11/05/2023 Encounter Status:Closed by Arnulfo KAMARA on 08/01/24 [facility] CNOVon 07-25-2024 CNOV Office Visit (RADTSA ) SUKHDEEP GAMINO ([id number]) 1960 M Date Time Provider Department 07/25/24 3:30 PM Arnulfo KAMARA RADTSA During your visit today, we recorded the following information about you: Temperature Pulse Respiration Blood pressure 96.7 degrees 107/minute 18/minute 144/96 Weight 88.5 kg Arnulfo Kamara MD 07/25/2024 3:54 PM Signed Radiation Oncology - On Treatment Review (OTR) [...] Pulse: 107 Resp: 18 Temp: (!) 35.9 ?C (96.7 ?F) SpO2: 100% Weight: 88.5 kg (195 lb [...] and imaging reviewed. Continue radiation as outlined. G Jewel Kamara MD Allergies As of Date: 07/25/2024 Noted Allergy Reaction CIPROFLOXACIN 11/12/2023 4 - Hives Date Reviewed: 07/25/2024 Reviewed by: Roxy Armstrong RN - Fully Assessed Reason for Visit: Radiotherapy On-treatment Visit [1722] Primary Visit Diagnosis:Malignant neoplasm of prostate (HCC) [C61] Prescriptions as of 07/25/2024 - relugolix (ORGOVYX) 120 mg tablet Take 1 tablet by mouth once daily. - Tadalafil (CIALIS) 5 mg tablet Take [...] fluticasone (FLONASE) 50 mcg/actuation nasal spray 1 Grover. Problem List As Of Date 07/25/2024 Noted Resolved Chronic ischemic heart disease [I25.9] [...] cancer (HCC) [C61] 11/05/2023 Encounter Status:Closed by Arnulfo KAMARA on 07/25/24 [facility] 07-21-2024 [facility] Telephone ([employer]) SUKHDEEP GAMINO ([id number]) 1960 M Date Time Provider Department 07/21/24 Arnulfo KAMARA During your visit today, we recorded the following information about you: Allergies As of Date: 07/21/2024 Noted Allergy Reaction CIPROFLOXACIN 11/12/2023 4 - Hives Date Reviewed: 07/19/2024 Reviewed by: Divina Braswell RN - Fully Assessed Reason for Visit: Orders [681] Primary Visit Diagnosis:Dysuria [R30.0] Order(s):UA DIP, URINE (POC) [[id number]] Order #: [id number] FUTURE Prescriptions as of 07/29/2024 - relugolix (ORGOVYX) 120 mg tablet Take 1 tablet by mouth once daily. - Tadalafil (CIALIS) 5 mg tablet Take [...] fluticasone (FLONASE) 50 mcg/actuation nasal spray 1 Grover. Problem List As Of Date 07/21/2024 Noted Resolved Chronic ischemic heart disease [I25.9] [...] cancer (HCC) [C61] 11/05/2023 Encounter Status:Closed by DIVINA BRASWELL on 07/29/24 Normal [facility] CNOVon 07-19-2024 CNOV Office Visit (RADTSA ) SUKHDEEP GAMINO ([id number]) 1960 M Date Time Provider Department 07/19/24 8:15 AM MIL CRUM During your visit today, we recorded the following information about you: Temperature Pulse Respiration Blood pressure 98.1 degrees 101/minute 18/minute 155/101 Weight 86 kg Mil Crum MD 08/02/2024 3:52 AM Addendum Radiation Oncology - On Treatment Review (OTR) [...] dose: 7000 cGy in 35 fx SUBJECTIVE: Tolerating XRT well and denies any burning/discomfort urination with nocturia once. He reports no trouble starting his stream or straining or incomplete emptying but did note a spot of blood on his pad a couple of days. His incontinence is unchanged and uses 1 pad per day. He does note diarrhea occasionally which is managed with Imodium. He does endorse fatigue as well as hot flashes with stable appetite and hydration and weight. EXAM: KPS: 90 General Appearance: Alert and oriented. No acute distress. Radiation dermatitis: No IMAGING/LAB RESULTS: None Treatment chart checked: Yes Patient treatment site reviewed and verified:Yes Port films reviewed and current:Yes Medications started: None ASSESSMENT/PLAN: Clinically stable. Toxicity within expected parameters. Continue radiation treatment as planned. Will continue to monitor the hematuria. Mil Crum MD Allergies As of Date: 07/19/2024 Noted Allergy Reaction CIPROFLOXACIN 11/12/2023 4 - Hives Date Reviewed: 07/19/2024 Reviewed by: Divina Braswell RN - Fully Assessed Reason for Visit: Radiotherapy On-treatment Visit [1722] Primary Visit Diagnosis:Malignant neoplasm of prostate (HCC) [C61] Prescriptions as of 08/02/2024 - relugolix (ORGOVYX) 120 mg tablet Take 1 tablet by mouth once daily. - Tadalafil (CIALIS) 5 mg tablet Take [...] fluticasone (FLONASE) 50 mcg/actuation nasal spray 1 Grover. Problem List As Of Date 07/19/2024 Noted Resolved Chronic ischemic heart disease [I25.9] [...] cancer (HCC) [C61] 11/05/2023 Encounter Status:Closed by MIL CRUM on 08/01/24 [facility] CNOVon 07-11-2024 CNOV Office Visit (RADTSA ) SUKHDEEP GAMINO ([id number]) 1960 M Date Time Provider Department 07/11/24 4:00 PM Arnulfo KAMARA During your visit today, we recorded the following information about you: Temperature Pulse Respiration Blood pressure 97.4 degrees 86/minute 16/minute 155/91 Weight 86.4 kg Arnulfo Kamara MD 07/11/2024 4:40 PM Signed Radiation Oncology - On Treatment Review (OTR) Note PATIENT NAME: Sukhdeep Gamino PATIENT DIAGNOSIS: Prostate adenocarcinoma, initial PSA 7.9, biopsy Christine score 4 + 5 = 9 (grade group 5), clinical stage T2c, N0, M0, status post robotic radical prostatectomy and bilateral pelvic lymph node dissection for 11/05/2023, [place] Gabriel 8 (4+4) pT3a pN0, with detectable and rising post prostatectomy PSA, PSA 04/26/2024 0.18. COURSE: salvage and post-operative Current dose: 3600 cGy in 18 fx Planned dose: 7000 cGy in 35 fx SUBJECTIVE: Doing well. Mild bowel changes better with modified diet. Mild taste change slightly metallic. PHYSICAL EXAM: 07/11/24 1631 BP: 155/91 Pulse: 86 Resp: 16 Temp: 36.3 ?C (97.4 ?F) SpO2: 100% Weight: 86.4 kg (190 lb [...] and imaging reviewed. Continue radiation as outlined. G Jewel Kamara MD Allergies As of Date: 07/11/2024 Noted Allergy Reaction CIPROFLOXACIN 11/12/2023 4 - Hives Date Reviewed: 07/11/2024 Reviewed by: Roxy Armstrong RN - Fully Assessed Reason for Visit: Prostate Cancer [590] Radiotherapy On-treatment Visit [1722] Primary Visit Diagnosis:Malignant neoplasm of prostate (HCC) [C61] Prescriptions as of 07/11/2024 - relugolix (ORGOVYX) 120 mg tablet Take 1 tablet by mouth once daily. - Tadalafil (CIALIS) 5 mg tablet Take [...] fluticasone (FLONASE) 50 mcg/actuation nasal spray 1 Grover. Problem List As Of Date 07/11/2024 Noted Resolved Chronic ischemic heart disease [I25.9] [...] cancer (HCC) [C61] 11/05/2023 Encounter Status:Closed by Arnulfo KAMARA on 07/11/24 [facility] CNOV 07-04-2024 CNOV Office Visit (RADTSA ) SUKHDEEP GAMINO ([id number]) 1960 M Date Time Provider Department 07/04/24 4:00 PM Arnulfo KAMARA RADKESHAA During your visit today, we recorded the following information about you: Temperature Pulse Respiration Blood pressure 98.3 degrees 87/minute 18/minute 133/95 Weight 86 kg Arnulfo Kamara MD 07/11/2024 9:53 AM Signed Radiation Oncology - On Treatment Review (OTR) [...] 133/95 Pulse: 87 Resp: 18 Temp: 36.8 ?C (98.3 ?F) SpO2: 98% Weight: 86 kg (189 lb [...] Continue radiation as outlined. Arnulfo Kamara MD Referring Provider: Arnulfo KAMARA [[id number]] Allergies As of Date: 07/04/2024 Noted Allergy Reaction CIPROFLOXACIN 11/12/2023 4 - Hives Date Reviewed: 06/27/2024 Reviewed by: Divina Braswell LPN - Fully Assessed Reason for Visit: Radiotherapy On-treatment Visit [1722] Primary Visit Diagnosis:Malignant neoplasm of prostate (HCC) [C61] Prescriptions as of 07/11/2024 - relugolix (ORGOVYX) 120 mg tablet Take 1 tablet by mouth once daily. - Tadalafil (CIALIS) 5 mg tablet Take [...] fluticasone (FLONASE) 50 mcg/actuation nasal spray 1 Grover. Problem List As Of Date 07/04/2024 Noted Resolved Chronic ischemic heart disease [I25.9] [...] cancer (HCC) [C61] 11/05/2023 Encounter Status:Closed by Arnulfo KAMARA on 07/11/24 [facility] 06-27-2024 CNOV Office Visit (RADTSA ) SUKHDEEP GAMINO ([id number]) 1960 [place] Date Time Provider Department 06/27/24 4:00 PM Arnulfo KAMARA During your visit today, we recorded the following information about you: Temperature Pulse Respiration Blood pressure 97.6 degrees 102/minute 16/minute 129/87 Weight 86.5 kg Arnuflo Kamara MD 06/27/2024 4:12 PM Signed Radiation Oncology - On Treatment Review (OTR) Note PATIENT NAME: Sukhdeep Gamino PATIENT DIAGNOSIS: Prostate adenocarcinoma, initial PSA 7.9, biopsy Saint Gabriel score 4 + 5 = 9 (grade [...] 129/87 Pulse: 102 Resp: 16 Temp: 36.4 ?C (97.6 ?F) SpO2: 100% Weight: 86.5 kg (190 lb [...] Continue radiation as outlined. Arnulfo Kamara MD Allergies As of Date: 06/27/2024 Noted Allergy Reaction CIPROFLOXACIN 11/12/2023 4 - Hives Date Reviewed: 06/27/2024 Reviewed by: Divina Braswell LPN - Fully Assessed Reason for Visit: Radiotherapy On-treatment Visit [1722] Primary Visit Diagnosis:Malignant neoplasm of prostate (HCC) [C61] Prescriptions as of 06/27/2024 - relugolix (ORGOVYX) 120 mg tablet Take 1 tablet by mouth once daily. - Tadalafil (CIALIS) 5 mg tablet Take [...] fluticasone (FLONASE) 50 mcg/actuation nasal spray 1 Grover. Problem List As Of Date 06/27/2024 Noted Resolved Chronic ischemic heart disease [I25.9] [...] cancer (HCC) [C61] 11/05/2023 Encounter Status:Closed by Arnulfo KAMARA on 06/27/24 Normal [facility] CBC W Auto Differential pane l (Bld)on 06-23-2024 Basophils (Bld) [#/Vol] 0.05 10*3/uL [facility] Basophils/100 WBC (Bld) 0.7 % [facility] Differential cell count method Nom (Bld) Auto [facility] Eosinophils (Bld) [#/Vol] 0.11 10*3/uL [facility] Eosinophils/100 WBC (Bld) 1.6 % [facility] Erythrocyte distribution width (RBC) [Ratio] 14.7 % 11.5 - 15.0 % [facility] Hematocrit (Bld) [Volume fraction] 39.4 % 39.0 - 51.0 % [facility] Hemoglobin (Bld) [Mass/Vol] 13.3 g/dL 13.0 - 17.0 g/dL [facility] Immature granulocytes (Bld) [#/Vol] 0.05 10*3/uL [facility] Immature granulocytes/100 WBC (Bld) 0.7 % [facility] Interpretation and review of laboratory results Abnormal [facility] Lymphocytes (Bld) [#/Vol] 0.92 10*3/uL Low [facility] Lymphocytes/100 WBC (Bld) 13.1 % [facility] MCH (RBC) [Entitic mass] 30.0 pg 26.0 - 34.[address] [facility] MCHC (RBC) [Mass/Vol] 33.8 g/dL 30.5 - 36.0 g/dL [facility] MCV (RBC) [Entitic vol] 88.7 fL 80.0 - 100.[address] [facility] Monocytes (Bld) [#/Vol] 0.85 10*3/uL [facility] Monocytes/100 WBC (Bld) 12.1 % [facility] Neutrophils (Bld) [#/Vol] 5.02 10*3/uL [facility] Neutrophils/100 WBC (Bld) 71.8 % [facility] Nucleated RBC (Bld) [#/Vol] [facility] Nucleated RBC/100 WBC (Bld) [Ratio] 0.0 % /[address] [facility] Platelet mean volume (Bld) [Entitic vol] 8.2 fL Low 9.0 - 12.[address] [facility] Platelets (Bld) [#/Vol] 300 10*3/uL [facility] RBC (Bld) [#/Vol] 4.44 10*6/uL 4.20 - 6.0 0 m/uL [facility] WBC (Bld) [#/Vol] 7.00 10*3/uL [facility] Basophils (Bld) [#/Vol] 0.05 10*3/uL Normal <0.11 [facility] Comment on above: Order Comment: Speci men Type: BLOOD SPECIMENOrdering Facility: [facility] Address: [address] [place] [address] Performed By: #### 5 7021-8 ####[facility] LABCLIA [id number] [place] [address] Basophils/100 WBC (Bld) 0.7 % Normal [facility] Comment on above: Order Comment: Speci men Type: BLOOD SPECIMENOrdering Facility: [facility] Address: [address] [place] [address] Performed By: #### 5 7021-8 ####[facility] LABCLIA [id number] [place] [address] Differential cell count method Nom (Bld) Auto Normal [facility] Comment on above: Order Comment: Speci men Type: BLOOD SPECIMENOrdering Facility: [facility] Address: [address] [place] [address] Performed By: #### 5 7021-8 ####[facility] LABCLIA [id number] [place] [address] Eosinophils (Bld) [#/Vol] 0.11 10*3/uL Normal <0.46 [facility] Comment on above: Order Comment: Speci men Type: BLOOD SPECIMENOrdering Facility: [facility] Address: [address] [place] [address] Performed By: #### 5 7021-8 ####[facility] LABCLIA [id number] [place] [address] Eosinophils/100 WBC (Bld) 1.6 % Normal [facility] Comment on above: Order Comment: Speci men Type: BLOOD SPECIMENOrdering Facility: [facility] Address: [address] [place] [address] Performed By: #### 5 7021-8 ####[facility] LABCLIA [id number] [place] [address] Erythrocyte distribution width (RBC) [Ratio] 14.7 % Normal 11.5-15.0 [facility] Comment on above: Order Comment: Speci men Type: BLOOD SPECIMENOrdering Facility: [facility] Address: [address] [place] [address] Performed By: #### 5 7021-8 ####[facility] LABCLIA [id number] [place] [address] Hematocrit (Bld) [Volume fraction] 39.4 % Normal 39.0-51.0 [facility] Comment on above: Order Comment: Speci men Type: BLOOD SPECIMENOrdering Facility: [facility] Address: [address] [place] [address] Performed By: #### 5 7021-8 ####[facility] LABCLIA [id number] [place] [address] Hemoglobin (Bld) [Mass/Vol] 13.3 g/dL Normal 13.0-17.0 [facility] Comment on above: Order Comment: Speci men Type: BLOOD SPECIMENOrdering Facility: [facility] Address: [address] [place] [address] Performed By: #### 5 7021-8 ####[facility] LABCLIA [id number] [place] [address] Immature granulocytes (Bld) [#/Vol] 0.05 10*3/uL Normal <0.10 [facility] Comment on above: Order Comment: Speci men Type: BLOOD SPECIMENOrdering Facility: [facility] Address: [address] [place] [address] Performed By: #### 5 7021-8 ####[facility] LABCLIA [id number] [place] [address] Immature granulocytes/100 WBC (Bld) 0.7 % Normal [facility] Comment on above: Order Comment: Speci men Type: BLOOD SPECIMENOrdering Facility: [facility] Address: [address] [place] [address] Performed By: #### 5 7021-8 ####[facility] LABCLIA [id number] [place] [address] Lymphocytes (Bld) [#/Vol] 0.92 10*3/uL Low 1.00-4.00 [facility] Comment on above: Order Comment: Speci men Type: BLOOD SPECIMENOrdering Facility: [facility] Address: [address] [place] [address] Performed By: #### 5 7021-8 ####[facility] LABCLIA [id number] [place] [address] Lymphocytes/100 WBC (Bld) 13.1 % Normal [facility] Comment on above: Order Comment: Speci men Type: BLOOD SPECIMENOrdering Facility: [facility] Address: [address] [place] [address] Performed By: #### 5 7021-8 ####[facility] LABCLIA [id number] [place] [address] MCH (RBC) [Entitic mass] 30.0 pg Normal 26.0-34.0 [facility] Comment on above: Order Comment: Speci men Type: BLOOD SPECIMENOrdering Facility: [facility] Address: [address] [place] [address] Performed By: #### 5 7021-8 ####[facility] LABCLIA [id number] [place] [address] MCHC (RBC) [Mass/Vol] 33.8 g/dL Normal 30.5-36.0 [facility] Comment on above: Order Comment: Speci men Type: BLOOD SPECIMENOrdering Facility: [facility] Address: [address] [place] [address] Performed By: #### 5 7021-8 ####[facility] LABCLIA [id number] [place] [address] MCV (RBC) [Entitic vol] 88.7 fL Normal 80.0-100.0 [facility] Comment on above: Order Comment: Speci men Type: BLOOD SPECIMENOrdering Facility: [facility] Address: [address] [place] [address] Performed By: #### 5 7021-8 ####[facility] LABCLIA [id number] [place] [address] Monocytes (Bld) [#/Vol] 0.85 10*3/uL Normal <0.87 [facility] Comment on above: Order Comment: Speci men Type: BLOOD SPECIMENOrdering Facility: [facility] Address: [address] [place] [address] Performed By: #### 5 7021-8 ####[facility] LABIA [id number] [place] [address] Monocytes/100 WBC (Bld) 12.1 % Normal [facility] Comment on above: Order Comment: Speci men Type: BLOOD SPECIMENOrdering Facility: [facility] Address: [address] [place] [address] Performed By: #### 5 7021-8 ####[facility] LABCLIA [id number] [place] [address] Neutrophils (Bld) [#/Vol] 5.02 10*3/uL Normal 1.45-7.50 [facility] Comment on above: Order Comment: Speci men Type: BLOOD SPECIMENOrdering Facility: [facility] Address: [address] [place] [address] Performed By: #### 5 7021-8 ####[facility] LABCLIA [id number] [place] [address] Neutrophils/100 WBC (Bld) 71.8 % Normal [facility] Comment on above: Order Comment: Speci men Type: BLOOD SPECIMENOrdering Facility: [facility] Address: [address] [place] [address] Performed By: #### 5 7021-8 ####[facility] LABCLIA [id number] [place] [address] Nucleated RBC (Bld) [#/Vol] 10*3/uL Normal <0.01 [facility] Comment on above: Order Comment: Speci men Type: BLOOD SPECIMENOrdering Facility: [facility] Address: [address] [place] [address] Performed By: #### 5 7021-8 ####[facility] LABCLIA [id number] [place] [address] Nucleated RBC/100 WBC (Bld) [Ratio] 0.0 /100 WBC Normal [facility] Comment on above: Order Comment: Speci men Type: BLOOD SPECIMENOrdering Facility: [facility] Address: [address] [place] [address] Performed By: #### 5 7021-8 ####[facility] LABCLIA [id number] [place] [address] Platelet mean volume (Bld) [Entitic vol] 8.2 fL Low 9.0-12.7 [facility] Comment on above: Order Comment: Speci men Type: BLOOD SPECIMENOrdering Facility: [facility] Address: [address] [place] [address] Performed By: #### 5 7021-8 ####[facility] LABCLIA [id number] [place] [address] Platelets (Bld) [#/Vol] 300 10*3/uL Normal 150-400 [facility] Comment on above: Order Comment: Speci men Type: BLOOD SPECIMENOrdering Facility: [facility] Address: [address] [place], [place] [address] Performed By: #### 5 7021-8 ####[facility] LABIA [id number] [place] [address] RBC (Bld) [#/Vol] 4.44 10*6/uL Normal 4.20-6.00 [facility] Comment on above: Order Comment: Speci men Type: BLOOD SPECIMENOrdering Facility: [facility] Address: [address] [place], [place] [address] Performed By: #### 5 7021-8 ####[facility] LABIA [id number] [place] [address] WBC (Bld) [#/Vol] 7.00 10*3/uL Normal 3.70-11.00 [facility] Comment on above: Order Comment: Speci men Type: BLOOD SPECIMENOrdering Facility: [facility] Address: [address] [place], [place] [address] Performed By: #### 5 7021-8 ####[facility] LABIA [id number] [place] [address] CNOVon 06-23-2024 CNOV Office Visit (RADTSA ) SUKHDEEP GAMINO ([id number]) 1960 M Date Time Provider Department 06/23/24 4:00 PM [facility] RADTSA During your visit today, we recorded the following information about you: Divina Braswell LPN 06/23/2024 3:37 PM Signed Sukhdeep Gamino presents in office today for: Lab Draw only . Ordering Provider: Jewel Kamara M.D. Test (s) ordered: CBC Method for obtaining blood: Phlebotomy was performed, accessing right antecubital vein. Needle removed intact. Dressing secured. Patient denies discomfort, dizziness, light-headedness or weakness and left the department without assist. Divina Braswell LPN Referring Provider: Arnulfo KAMARA [[id number]] Allergies As of Date: 06/23/2024 Noted Allergy Reaction CIPROFLOXACIN 11/12/2023 4 - Hives Date Reviewed: 06/20/2024 Reviewed by: Divina Braswell LPN - Fully Assessed Visit Diagnosis:Prostate cancer (HCC) [C61] Order(s):COMPLETE BLOOD COUNT AND DIFFERENTIAL [SQCBCDIF] Order #: [id number]. #:[id number] Prescriptions as of 06/23/2024 - relugolix (ORGOVYX) 120 mg tablet Take 1 tablet by mouth once daily. - Tadalafil (CIALIS) 5 mg tablet Take [...] fluticasone (FLONASE) 50 mcg/actuation nasal spray 1 Grover. Problem List As Of Date 06/23/2024 Noted Resolved Chronic ischemic heart disease [I25.9] [...] Diagnosed: 11/03/2023 Prostate cancer (HCC) [C61] 11/05/2023 Visit Notes: >> Divina Braswell LPN [facility] Jun 23, 2024 3:37 PM Status: Signed Sukhdeep Gamino presents in office today for: Lab Draw only . Ordering Provider: Jewel Kamara M.D. Test (s) ordered: CBC Method for obtaining blood: Phlebotomy was performed, accessing right antecubital vein. Needle removed intact. Dressing secured. Patient denies discomfort, dizziness, light-headedness or weakness and left the department without assist. Divina Braswell LPN Encounter Status:Closed by DIVINA BRASWELL on 06/23/24 [facility] CNOVon 06-20-2024 CNOV Office Visit (RADTSA ) SUKHDEEP GAMINO ([id number]) 1960 M Date Time Provider Department 06/20/24 4:00 PM Arnulfo KAMARA During your visit today, we recorded the following information about you: Arnulfo Kamara MD 06/20/2024 4:27 PM Signed Radiation Oncology - On Treatment Review (OTR) Note PATIENT NAME: Sukhdeep Gamino PATIENT DIAGNOSIS: Prostate adenocarcinoma, initial PSA 7.9, biopsy Saint Gabriel score 4 + 5 = 9 (grade [...] Continue radiation as outlined. Arnulfo Kamara MD Allergies As of Date: 06/20/2024 Noted Allergy Reaction CIPROFLOXACIN 11/12/2023 4 - Hives Date Reviewed: 06/20/2024 Reviewed by: Divina Braswell LPN - Fully Assessed Reason for Visit: Radiotherapy On-treatment Visit [1722] Primary Visit Diagnosis:Prostate cancer (HCC) [C61] Prescriptions as of 06/20/2024 - relugolix (ORGOVYX) 120 mg tablet Take 1 tablet by mouth once daily. - Tadalafil (CIALIS) 5 mg tablet Take [...] fluticasone (FLONASE) 50 mcg/actuation nasal spray 1 Grover. Problem List As Of Date 06/20/2024 Noted Resolved Chronic ischemic heart disease [I25.9] [...] cancer (HCC) [C61] 11/05/2023 Encounter Status:Closed by Arnulfo KAMARA on 06/20/24 [facility] CNOVon 06-15-2024 CNOV Office Visit (RADTSA ) ALFREDOSUKHDEEP LATHAM ([id number]) 1960 M Date Time Provider Department 06/15/24 2:45 PM Arnulfo KAMARA RADTSA During your visit today, we recorded the following information about you: Weight 85.9 kg Arnulfo Kamara MD 06/15/2024 3:08 PM Signed Radiation Oncology - On Treatment Review (OTR) Note PATIENT NAME: Sukhdeep Gamino PATIENT DIAGNOSIS: Prostate adenocarcinoma, initial PSA 7.9, biopsy Christine score 4 + 5 = 9 (grade group 5), clinical stage T2c, N0, M0, status post robotic radical prostatectomy and bilateral pelvic lymph node dissection for 11/05/2023, [place] Gabriel 8 (4+4) pT3a pN0, with detectable and [...] Continue radiation as prescribed. Arnulfo Kamara MD Allergies As of Date: 06/15/2024 Noted Allergy Reaction CIPROFLOXACIN 11/12/2023 4 - Hives Date Reviewed: 06/06/2024 Reviewed by: Shelly Xavier RN - Fully Assessed Reason for Visit: Radiotherapy On-treatment Visit [1722] Primary Visit Diagnosis:Prostate cancer (HCC) [C61] Prescriptions as of 06/15/2024 - relugolix (ORGOVYX) 120 mg tablet Take 1 tablet by mouth once daily. - Tadalafil (CIALIS) 5 mg tablet Take [...] fluticasone (FLONASE) 50 mcg/actuation nasal spray 1 Grover. Problem List As Of Date 06/15/2024 Noted Resolved Chronic ischemic heart disease [I25.9] [...] cancer (HCC) [C61] 11/05/2023 Encounter Status:Closed by Arnulfo KAMARA on 06/15/24 [facility] SUKHDEEP GAMINO ([id number]) 1960 Date Time Provider Department 06/13/24 Arnulfo KAMARA During your visit today, we recorded the following information about you: Divina Braswell LPN 06/13/2024 8:26 AM Signed CBC order pending your approval. Divina Braswell RN Allergies As of Date: 06/13/2024 Noted Allergy Reaction CIPROFLOXACIN 11/12/2023 4 - Hives Date Reviewed: 06/06/2024 Reviewed by: Shelly Xavier RN - Fully Assessed Reason for Visit: Orders [681] Primary Visit Diagnosis:Prostate cancer (HCC) [C61] Order(s):COMPLETE BLOOD COUNT AND DIFFERENTIAL [SQCBCDIF] Order #: [id number] FUTURE Prescriptions as of 06/13/2024 - relugolix (ORGOVYX) 120 mg tablet Take 1 tablet by mouth once daily. - Tadalafil (CIALIS) 5 mg tablet Take [...] fluticasone (FLONASE) 50 mcg/actuation nasal spray 1 Grover. Problem List As Of Date 06/13/2024 Noted Resolved Chronic ischemic heart disease [I25.9] [...] cancer (HCC) [C61] 11/05/2023 Encounter Status:Closed by DIVINA BRASWELL on 06/13/24 Normal [facility] [place] 06-07-2024 CNPN Telephone (SDOPRX) SUKHDEEP GAMINO ([id number]) 1960 M Date Time Provider Department 06/07/24 GLORIA THACKER SDOPRX During your visit today, we recorded the following information about you: Gloria Thacker [facility] 06/07/2024 2:30 PM Signed Ambulatory Pharmacy Prior Authorization Note Provider Intervention Required?: No- Pharmacy completed on your behalf. Rx Plan: Other: [employer] Drug: Orgovyx Cover My Meds Stein: N/A Determination: N/A Additional Information: Patient out of pocket cost: $1,001.72. No grants are open at this time for patient diagnosis. Patient would like to apply for free drug through the family practitioner patient assistance program (application signed - awaiting MD signature) If moving forward with Orgovyx, we need to address Major DRUG/DRUG Interaction Orgovyx/Coreg: Also sig clarification is needed. Orgovyx is initially given with a 360 mg loading dose on Day 1, followed by 120 mg once daily. For questions relating to this submission, please contact [facility] at [phone] Allergies As of Date: 06/07/2024 Noted Allergy Reaction CIPROFLOXACIN 11/12/2023 4 - Hives Date Reviewed: 06/06/2024 Reviewed by: hSelly Xavier RN - Fully Assessed Reason for Visit: Medication Update [4255] Cmt: Orgovyx Prescriptions as of 06/09/2024 - relugolix (ORGOVYX) 120 mg tablet Take 1 tablet by mouth once daily. - Tadalafil (CIALIS) 5 mg tablet Take [...] fluticasone (FLONASE) 50 mcg/actuation nasal spray 1 Grover. Problem List As Of Date 06/07/2024 Noted Resolved Chronic ischemic heart disease [I25.9] [...] cancer (HCC) [C61] 11/05/2023 Encounter Status:Closed by GLORIA THACKER on 06/09/24 [facility] CNOVon 06-06-2024 CNOV Office Visit (RADTSA ) SUKHDEEP [id number]) 1960 [place] Date Time Provider Department 06/06/24 3:00 PM Arnulfo KAMARA During your visit today, we recorded the following information about you: Allergies As of Date: 06/06/2024 Noted Allergy Reaction CIPROFLOXACIN 11/12/2023 4 - Hives Date Reviewed: 06/06/2024 Reviewed by: Shelly Xavier RN - Fully Assessed Reason for Visit: Simulation Request Form [9314] Primary Visit Diagnosis:Prostate cancer (HCC) [C61] Order(s):RADIATION TREATMENT PER RADIATION ONCOLOGIST PLAN [8958566] Order #: [id number]: 1 CT SIM PLANNING RADIATION ONCOLOGY [4551063] Order #: [id number] relugolix (ORGOVYX) 120 mg tabletTake 1 tablet by mouth once daily.Disp: 30 tabletRfl: 5 Prescriptions as of 06/06/2024 - relugolix (ORGOVYX) 120 mg tablet Take 1 tablet by mouth once daily. - Tadalafil (CIALIS) 5 mg tablet Take [...] fluticasone (FLONASE) 50 mcg/actuation nasal spray 1 Grover. Facility-Administered Medications as of 06/06/2024 - leuprolide 22.5 mg subcutaneous syringe (ELIGARD) Problem List As Of Date 06/06/2024 Noted Resolved Chronic ischemic heart disease [I25.9] [...] ordered this encounter Disp Refills Start End RELUGOLIX 120 MG TABLET 30 t* 5 06/06/2024 Route: ORAL Sig: Take 1 tablet by mouth once daily. Medications Discontinued During This Encounter Prescriptions - leuprolide 45 mg injection (ELIGARD) (Discontinued) Encounter Status:Closed by Arnulfo KAMARA on 06/06/24 [facility] CNOV Office Visit (RADTSA ) SUKHDEEP GAMINO ([id number]) 1960 M Date Time Provider Department 06/06/24 2:45 PM LAB/PORT RADT JOSEPH RADTSA During your visit today, we recorded the following information about you: Temperature Pulse Respiration Blood pressure 98.1 degrees 96/minute 16/minute 137/90 Weight 86.4 kg Referring Provider: Arnulfo KAMARA [[id number]] Allergies As of Date: 06/06/2024 Noted Allergy Reaction CIPROFLOXACIN 11/12/2023 4 - Hives Date Reviewed: 06/06/2024 Reviewed by: Shelly Xavier RN - Fully Assessed Reason for Visit: Prostate Cancer [590] Primary Visit Diagnosis:Malignant neoplasm of prostate (HCC) [C61] Order(s):[] leuprolide 22.5 mg subcutaneous syringe (ELIGARD)Disp: Rfl: Prescriptions as of 06/06/2024 - relugolix (ORGOVYX) 120 mg tablet Take 1 tablet by mouth once daily. - Tadalafil (CIALIS) 5 mg tablet Take [...] fluticasone (FLONASE) 50 mcg/actuation nasal spray 1 Grover. Problem List As Of Date 06/06/2024 Noted Resolved Chronic ischemic heart disease [I25.9] [...] LEUPROLIDE ACETATE 45 MG (6 MONTH) S* 06/06/2024 06/06/2024 Route: SUBCUTANEOUS LEUPROLIDE 22.5 MG (3 MONTH) SUBCUTA* 06/06/2024 06/06/2024 Route: SUBCUTANEOUS Encounter Status:Closed by DIVINA BRASWELL on 06/06/24 [facility] SHERRISUKHDEEP Donaldson ([id number]) 1960 M Date Time Provider Department 05/23/24 ROXY ARMSTRONG During your visit today, we recorded the following information about you: Roxy Armstrong RN 05/23/2024 1:41 PM Signed Call received from [facility]- 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 They need to get an order for XRay ORbits to make sure he does not have any metal. Please sign and we will fax to [facility]. BOY Herring Angela, RN 05/23/2024 3:14 PM Signed Order faxed to [facility]. Roxy Armstrong RN Allergies As of Date: 05/23/2024 Noted Allergy Reaction CIPROFLOXACIN 11/12/2023 4 - Hives Date Reviewed: 04/28/2024 Reviewed by: Divina Braswell LPN - Fully Assessed Reason for Visit: Orders [681] Primary Visit Diagnosis:Prostate cancer (HCC) [C61] Order(s):XR FACIAL BONES 3V AP/LAT/WEEKS [2800552] Order #: [id number] FUTURE Prescriptions as of 05/23/2024 - Tadalafil [...] fluticasone (FLONASE) 50 mcg/actuation nasal spray 1 Grover. Problem List As Of Date 05/23/2024 Noted [...] Encounter Status:Closed by ROXY ARMSTRONG on 05/23/24 [facility] [place] 05-20-2024 JC Telephone (RADTSA) SUKHDEEP GAMINO ([id number]) 1960 M Date Time Provider Department 05/20/24 Arnulfo KAMARA During your visit today, we recorded the following information about you: Roxy Armstrong RN 05/20/2024 1:17 PM Signed Please sign pended Creat for [facility]. BOY Herring Angela, RN 05/23/2024 8:48 AM Signed Order Signed. Roxy Armstrong RN Allergies As of Date: 05/20/2024 Noted Allergy Reaction CIPROFLOXACIN 11/12/2023 4 - Hives Date Reviewed: 04/28/2024 Reviewed by: Divina Braswell LPN - Fully Assessed Primary Visit Diagnosis:Malignant neoplasm of prostate (HCC) [C61] Order(s):CREATININE BLD [SQCRET] Order #: [id number] FUTURE Prescriptions as of 05/23/2024 - Tadalafil [...] fluticasone (FLONASE) 50 mcg/actuation nasal spray 1 Grover. Problem List As Of Date 05/20/2024 Noted [...] Encounter Status:Closed by ROXY ARMSTRONG on 05/23/24 [facility] CNOVon 05-19-2024 CNOV Office Visit (RADTSA ) SUKHDEEP GAMINO ([id number]) 1960 Date Time Provider Department 05/19/24 11:45 [...] of prostate (HCC) [C61] Order(s):TREATMENT PARAMETER-NOT NEEDED [0603846] Order #: [id number]: 1 BCN NURSING COMMUNICATION [1921226] Order #: [id number]: 1 BCN NURSING COMMUNICATION [0650392] Order #: [id number]: 1 STANDING leuprolide 45 mg injection (ELIGARD)Disp: Rfl: NaCl 0.9% iv infusionDisp: Rfl: diphenhydrAMINE 50 mg injection (BENADRYL)Disp: Rfl: hydrocortisone sodium succinate 100 mg injection (Solu-CORTEF)Disp: Rfl: EPINEPHrine 0.3 mg injection - ANAPHYLAXIS (IM only)Disp: Rfl: BCN NURSING COMMUNICATION [4145889] Order #: [id number]: 1 STANDING [facility] NURSING COMMUNICATION [3956710] Order #: [id number]: 1 STANDING sodium chloride 0.9 % (flush) 10-20 mL (BD POSIFLUSH)Disp: Rfl: sodium chloride 0.9 % (flush) 10-20 mL (BD POSIFLUSH)Disp: Rfl: [facility] NURSING COMMUNICATION [0189128] Order #: [id number]: 1 STANDING [facility] NURSING COMMUNICATION [5110494] Order #: [id number]: 1 STANDING Prescriptions as of 05/19/2024 - [...] fluticasone (FLONASE) 50 mcg/actuation nasal spray 1 Grover. Facility-Administered Medications as of 05/19/2024 - leuprolide [...] Encounter Status:Closed by ROXY ARMSTRONG on 05/19/24 [facility] CNOV Office Visit (RADTSA ) SUKHDEEP GAMINO ([id number]) 1960 M Date Time Provider Department 05/19/24 11:00 AM Arnulfo KAMARA During your visit today, we recorded the following information about you: Temperature Pulse Respiration Blood pressure 97.5 degrees 80/minute 16/minute 138/92 Arnulfo Kamara MD 05/19/2024 11:22 AM Signed Radiation Oncology - Prostate Cancer New Patient/Consult Note PATIENT NAME: Sukhdeep Gamino PATIENT REQUESTING PROVIDER: Katrina Saul CNP OTHER PROVIDERS: Dr. lAek Fatima, Dr. Erica Bah DIAGNOSIS: 63 year old male with prostate adenocarcinoma, initial PSA 7.9, biopsy Christine score 4 + 5 = 9 (grade group 5), clinical stage T2c, N0, M0, status post robotic radical prostatectomy and bilateral pelvic lymph node dissection for 11/05/2023, Saint Gabriel 8 (4+4) pT3a pN0, with detectable and [...] any questions regarding this interpretation, please call [phone]. If you are unable to reach us at the number above, please feel free to contact [facility] eRadiology at [phone]. Results-Findings * * *Final Report* * * [...] avid mass. (more content not included)... Normal [facility] PET/CT PROSTATE WBon 05-03 [place] PET/CT PROSTATE WB * * *Final Report* [...] Scattered non- (more content not included)... Normal [facility] CNOVon 04-28-2024 CNOV Office Visit (RADTSA ) SUKHDEEP GAMINO ([id number]) 1960 M Date Time Provider Department 04/28/24 10:00 AM Arnulfo KAMARA During your visit today, we recorded the following information about you: Temperature Pulse Respiration Blood pressure 98.2 degrees 81/minute 16/minute 146/87 Weight 86.4 kg Divina Braswell LPN 04/28/2024 10:20 AM Signed AUA= 2 Pacemaker/Defibrillator?N Previous Cancer(s)?N Previous Radiation?N Lupus/Scleroderma?N On body monitoring device?N Arnulfo Kamara MD 05/04/2024 2:07 PM Signed Radiation Oncology - Prostate Cancer New Patient/Consult Note PATIENT NAME: Sukhdeep Gamino PATIENT REQUESTING PROVIDER: Katrina Saul CNP OTHER PROVIDERS: Dr. Alek Fatima, Dr. Erica Bah DIAGNOSIS: 63 year old male with prostate adenocarcinoma, initial PSA 7.9, biopsy Saint Gabriel score 4 + 5 = 9 (grade [...] ultrasound-guided biopsy on 08/25/2023, with finding of Saint Gabriel grade group 5 (4+5) from the left [...] using tad (more content not included)... [facility] SUKHDEEP GAMINO ([id number]) 1960 M Date Time Provider Department 04/28/24 Arnulfo KAMARA During your visit today, we recorded the following information about you: Misty Sher HUC 04/28/2024 11:19 AM Signed This form is used for MAIN CAMPUS APPOINTMENTS ONLY. Is this request for a Main [place] PET scan appointment? Yes: Music Librarian: OSWALDO Ramirez Requesting Person (Last Name, First Name): Sherif Mckeon Code + Phone/Pager: [phone] Who do we call to schedule this appointment? Other Contact: [facility] PET in [place], [facility]. Requesting Staff Sherif Area Code + Phone/Pager: [phone] PET Orders (A delay in scheduling will [...] 04/28/2024 4:08 PM Signed [facility] Comments for Chimney Mechanic: Joseph Will the patient need anesthesia: No [...] F-18 flotufolastat,18F flotufolastat Posluma GA68 [facility] PET 44132/LOCAMETZ (Gallium GA-68 Gozetotide) (6 mCi) A9800 - Posluma (Flotufolastat F18) (8mCi), A9608 - Region Auth#: Date Range: NPI: Member ID: Medicare Site/Contact: Case/Ref#: Notes: Route to or Requested Scheduling Pool: P PET SUPERINTENDENT MAINTENANCE [facility]([place]), Naomi RUIZ HOSPICE OFFICE COORDINATOR Allergies As of Date: 04/28/2024 Noted Allergy Reaction CIPROFLOXACIN 11/12/2023 4 - Hives Date Reviewed: 04/28/2024 Reviewed by: Divina Braswell LPN - Fully Assessed Reason for Visit: Nm Pet Request [4865] Prescriptions as of 05/17/2024 - Tadalafil (CIALIS) [...] fluticasone (FLONASE) 50 mcg/actuation nasal spray 1 Grover. Problem List As Of Date 04/28/2024 Noted [...] Encounter Status:Closed by MISTY SHER on 05/17/24 Normal [facility] Telephone (RADTSA) SUKHDEEP GAMINO ([id number]) 1960 Date Time Provider Department 04/28/24 Arnulfo KAMARA During your visit today, we recorded the following information about you: Divina Braswell LPN 04/28/2024 4:22 PM Signed Pharmacist: Will you please enter Eligarmerlyn 45mg orders and route to Dr. Kamara? [...] fluticasone (FLONASE) 50 mcg/actuation nasal spray 1 Grover. Problem List As Of Date 04/28/2024 Noted [...] Status:Closed by CHARLENE REYNOSO on 05/04/24 Normal [facility] PSA SerPl-mCncon 04-26-2024 Prostate specific Ag [Mass/Vol] 0.18 ng/mL Normal <2.60 [facility] Comment on above: Order Comment: Speci men Type: BLOOD SPECIMENOrdering Facility: [facility] Address: [address] [place] [address] Result Comment: Tota l PSA test methodology used is the Electrochemiluminescence Immunoassay by [employer]. Total PSA values by differing methodologies cannot be interchanged. Performed By: #### 2 857-1 ####[facility] LABCLIA [id number] [address] STATES OF [facility] PSA SerPl-mCncon 03-31-2024 Prostate specific Ag [Mass/Vol] 0.12 ng/mL Normal <2.60 [facility] Comment on above: Order Comment: Speci men Type: BLOOD SPECIMENOrdering Facility: [facility] Address: [address] [place] [address] Result Comment: Tota l PSA test methodology used is the Electrochemiluminescence Immunoassay by [employer]. Total PSA values by differing methodologies cannot be interchanged. Performed By: #### 2 857-1 ####[facility] LABCLIA [id number] [place] [address] [place] Office Visiton 12-29-2023 Follow-up visit [id number] Sukhdeep Gamino 1960 M Date Provider Department Center 12/29/2023 [id number], EHAB BH CARD [facility] No family history on file Level of Service:88673 [place] OFFICE/OUTPATIENT ESTABLISHED LOW MDM 20 MIN Normal [facility] Orders Onlyon 12-25-2023 Orders Only [id number] Sukhdeep Gamino 1960 M Date Provider Department Center 12/25/2023 [id number], HISTORICAL BH CARD [facility] No family history on file Normal [facility] PSA SerPl-mCncon 12-25-2023 Prostate specific Ag [Mass/Vol] 0.03 ng/mL Normal <2.60 [facility] Comment on above: Order Comment: Speci men Type: BLOOD SPECIMENOrdering Facility: [facility] Address: [address] [place] [address] Result Comment: Tota l PSA test methodology used is the Electrochemiluminescence Immunoassay by [employer]. Total PSA values by differing methodologies cannot be interchanged. Performed By: #### 2 857-1 ####[facility] [id number] [place] [address] [place] Heart Perfusion W stress and W radionuclide Yogi 11-03-2023 [facility] URINALYSIS, REFLEX MICROSCOP ICon 11-03-2023 Bacteria LM.HPF (Urine sed) [#/Area] Negative Negative /HPF [facility] Bilirubin Ql (U) Negative [facility] Clarity (Unsp spec) Clear Clear [facility] Color (U) Yellow Yellow [facility] Epithelial cells LM.HPF (Urine sed) [#/Area] None Seen [facility] Glucose Test strip (U) [Mass/Vol] Negative Negative [facility] Hemoglobin Ql (U) Negative Negative [facility] Hyaline casts (Urine sed) [#/Area] 1-3 /LPF Abnormal 0 /LPF [facility] Ketones Ql (U) Negative Negative [facility] Leukocyte esterase Test strip Ql (U) Trace Abnormal Negative [facility] Nitrite Ql (U) Negative Negative [facility] pH (U) 5.5 [pH] <8.5 [facility] Protein (U) [Mass/Vol] Negative Negative [facility] RBC LM.HPF (Urine sed) [#/Area] 0-2 /HPF 0-2 /HPF [facility] Specific gravity (U) [Rel density] 1.023 1.005 - 1.030 [facility] Ql (U) 0.2 EU/dL 0.2-1.0 EU/dL [facility] WBC LM.HPF (Urine sed) [#/Area] 0-5 /HPF 0-5 /HPF [facility] URINALYSIS, REFLEX MICROSCOP ICon 10-02-2023 Bilirubin Ql (U) Negative Negative [facility] Clarity (Unsp spec) Clear Clear [facility] Color (U) Light Yellow Yellow [facility] Glucose Test strip (U) [Mass/Vol] Negative Trace, Negative [facility] Hemoglobin Ql (U) Negative Negative, Trace [facility] Ketones Ql (U) Negative Negative, Trace [facility] Leukocyte esterase Test strip Ql (U) Negative Negative, 25 Brandon/uL [facility] Nitrite Ql (U) Negative Negative [facility] pH (U) 5.0 [pH] 5.0 - 8.0 [facility] Protein (U) [Mass/Vol] Negative Trace, Negative [facility] Specific gravity (U) [Rel density] 1.027 1.005 - 1.030 [facility] Urobilinogen Ql (U) Normal Normal [facility] RAD - Nuclear Medicine Repor ton 09-15-2023 RAD - Nuclear Medicine Report [id number]#1.00TIFF Normal [facility] PET psma initial tx [place] 09-14-2023 PET [place] [address] Nuclear Medicine Report Signed Patient: Sukhdeep Gamino MR#: [id number] 5 : 1960 Acct:[id number] Age/Sex: 62 / M ADM Date: 09/14/23 Loc: Room: Type: [facility] CLI Attending Dr: Chadd Weeks MD Copies to: Shahriar Urrutia Jr, DO Patrick R Waters, MD Ordering Provider: Chadd Weeks MD Date of Service: 09/14/23 PET/PET [...] Urrutia Jr., D.O.09/14/2023 3:06 PM Dictation Location: [place] [address] Transcribed By: [facility] 09/14/23 1506 Dictated By: Shahriar Urrutia Jr, DO 09/14/23 1456 Signed By: 09/14/23 1506 [facility] RAD - Nuclear Medicine Repor ton 09-03-2023 RAD - Nuclear Medicine Report [id number]#1.00TIFF Normal [facility] Physician Orderon 09-01-2023 Physician Order [id number]#1.00TIFF [facility] Ambulatory Visit Summaryon 0 08-31-2023 Ambulatory Visit Summary SUKHDEEP GAMINO :1960 Visit Date:08/31/2023 Ambulatory Visit Instructions Your Diagnosis Prostate cancer BPH with urinary obstruction Inguinal hernia Your Care Team Attending Physician - Chadd WEEKS MD Primary Care Physician - Alek [...] Following Appointments Follow Up with MICKY GARRISON, Chadd Hernández, URL When: Comments: f/u pending results of PSMA and bone scans Where: [facility] [address] , [place] [address] [phone] Medications What How Much When Why Instructions [...] as fo (more content not included)... Normal [facility] Patient Educationon 08-31-19 24 Patient Education Oncology [...] likelihood that the cancer will spread. ? Christine 6 or lower: This indicates that the [...] be (more content not included)... Normal [facility] Urology Office/Clinic Noteon 08-31-2023 Urology Office/Clinic [...] cons of each therapy today, and the dough prostate cancer book was provided. Explained that [...] Hernández, URL [facility] [address], [facility] [place] [address]- [phone] Additional Instructions: f/u pending results of PSMA and bone scans Patient Education Prostate Cancer Radha Heredia, personally scribed for Dr. Weeks on 08/31/2023 10:25:27. . Documentation recorded by the scribeRadha, accurately reflects the services(s) I performed and [...] mRNA BNT-162b2 vax (more content not included)... [facility] Comment on above: Result Comment: Elec tronically Signed By: Chadd WEEKS MD\.br\Date and Time Signed: 08/31/23 10:34 EST\.br\Electronically Co-Signed By: Radha Balderas\.br\Date and Time Co-Signed: 08/31/23 10:25 EST Lab Reportson 08-28-2023 Lab Reports [id number]#1.00TIFF [facility] Consent for Procedure/Surger yon 08-26-2023 Consent for Procedure/Surgery [id number]#1.00TIFF [facility] Ambulatory Visit Summaryon 0 08-25-2023 Ambulatory Visit Summary SHERRI SUKHDEEP Donaldson :1960 Visit Date:08/25/2023 Ambulatory Visit Instructions Your Diagnosis Elevated PSA BPH with urinary obstruction Inguinal hernia A-fib Your Care Team Attending Physician - Chadd WEEKS MD Primary Care Physician - Alek [...] GARRISON, Chadd Hernández Where: [facility] Roel 08-25-2023 L Specimen: [id number] Re ceived: 08/26/23 Status: SOUOg Req Num: [id number] Spec Type: Surgical Subm Dr: Chadd Weeks MD Tissues: A Prostate - Needle [...] - Needle Biopsy (RT LATERAL APEX) Procedures: /, Gross/Micro L4/12 Age/ Patient Sex Location Account Attending Physician Sukhdeep Gamino 62/M [place] [id number] Chadd Weeks MD SPEC NUM: [id number] RECD: 08/26/23 STATUS: ROSA WOODARD NUM: [id number] BRIDGETTE: 08/25/[address]: Chadd Weeks MD ENTERED: 08/26/[address] [facility] [address]: SPEC TYPE: Surgical DEPT: S [...] needle core biopsy: - Invasive prostate adenocarcinoma, Saint Gabriel pattern 4+5, grade group 5 Specimen: [id number] Received: 08/26/23 Status: ROSA Portia Num: [id number] Spec Type: Surgical Subm Dr: Chadd Weeks MD Tissues: A Prostate - Needle [...] Procedures: HE/, Gross/Micro L4/12 Patient: Sukhdeep Gamino [id number] (Continued) Specimen: [id number] Received: 08/26/23 (Continued) Pathological Diagnosis (Continued) Signed (signature on file) Nani Ambrocio MD 08/27/23 0959 Specimen: [id number] Received: 08/26/23 Status: ROSA Woodard Num: [id number] Spec Type: Surgical Subm Dr: Chadd Weeks MD Tissues: A Prostate - Needle [...] APEX) Procedures: , Gross/Micro Patient: Sukhdeep Gamino [id number] (Continued) Specimen: [id number] Received: 08/26/23 (Continued) Pathological Diagnosis (Continued) - Adenocarcinoma involves 50% of the biopsy tissue. - Negative for lymphovascular and perineural invasion. D. Prostate, left lateral mid, needle core biopsy: - Invasive prostate adenocarcinoma, Saint Gabriel pattern 4+5, minor 3, grade group 5 [...] invasion. G. Prostate, (more content not included)... [facility] Patient Educationon 08-25-19 Patient Education Oncology [...] near your rectum, especially while sitting. ? [place]-colored urine due to small amounts of blood in your urine. ? A burning feeling while urinating. ? Blood in your stool (feces) or bleeding from your rectum. ? Blood in your semen. Follow these instructions at home: Medicines ? Take jthc-uhs-otzedvp and prescription medicines only as told by [...] provider. Document Revised: 01/13/2022 Document Reviewed: 01/13/2022 Elsevier Patient Education ? 2022 [employer] Mayela Nolasco [facility] Urology Office/Clinic Noteon 08-25-2023 Urology Office/Clinic [...] without complications. Pathology to be sent to [facility]. -F/u scheduled 09/11/23 to review path report [...] [facility] [address], [place] [address] [phone] Additional Instructions: review path on 09/11/23 Patient Education Transrectal Ultrasound-Guided Prostate Biopsy, Care After Radha Heredia, personally scribed for Dr. Weeks on 08/25/2023 15:48:19. . Documentation recorded by the scribeRadha, accurately reflects the services(s) I performed and [...] inhalation powd (more content not included)... Normal [facility] Comment on above: Result Comment: Elec tronically Signed By: Chadd WEEKS MD\.br\Date and Time Signed: 08/25/23 15:49 EST\.br\Electronically Co-Signed By: Radha Balderas\.br\Date and Time Co-Signed: 08/25/23 15:48 EST Lab Reportson 08-20-2023 Lab Reports [id number]#1.00TIFF Normal [facility] Patient Correspondenceon Patient Correspondence [id number]#1.00TIFF [facility] Physician Referralon 024 Physician Referral [id number]#1.00TIFF [facility] Screenson 08-11-2023 Screens [id number]#1.00TIFF [facility] Ambulatory Visit Summaryon 0 08-10-2023 Ambulatory Visit Summary SUKHDEEP GAMINO :1960 Visit Date:08/10/2023 Ambulatory Visit Instructions Your Diagnosis Elevated PSA BPH with urinary obstruction A-fib Inguinal hernia Tests Performed Urnls Dip Stick Auto w/o Microscopy POC 53466 Your Care Team Attending Physician - MICKY GARRISON, Chadd Hernández Primary Care Physician - Alek Fatima [...] sched TRUS/bx Where: [facility] [address] , [place] [phone] Medications What How Much When Instructions Unchanged [...] Urnls Dip Stick Auto w/o Microscopy POC 51662 (08/10/2023) Bilirubin Urine Dipstick - Negative Blood Urine Dipstick - Negative Glucose Urine Dipstick - Negative Ketones Urine Dipstick - Negative Leukocytes Urine Dipstick - Negative Nitrite Urine Dipstick - Negative Protein Urine Dipstick - Negative Specific Pike Urine Dipstick - 1.025 Urine Appearance Urine [...] near your rectum, especially while sitting. ? [place]-colored urine due to small amounts of blood in your urine. ? A burning feeling while urinating. ? Blood in your stool (feces) or bleeding from your rectum. ? Blood in your semen. Follow these instructions at home: Medicines ? Take dwfp-xxf-fqgfzzy and prescription medicines only as told by [...] your uri (more content not included)... Normal [facility] Patient Educationon 08-10-19 Patient Education Oncology Transrectal [...] near your rectum, especially while sitting. ? [place]-colored urine due to small amounts of blood in your urine. ? A burning feeling while urinating. ? Blood in your stool (feces) or bleeding from your rectum. ? Blood in your semen. Follow these instructions at home: Medicines ? Take jyml-jok-dzqvngy and prescription medicines only as told by [...] provider. Document Revised: 01/13/2022 Document Reviewed: 01/13/2022 4Home Patient Education ? 2022 [employer]IL[employer]. Transrectal Ultrasound-Guided Prostate Biopsy A transrectal ultrasound-guided [...] including vitamins, herbs, eye drops, creams, and zsxa-mph-sdziwob medicines. ? Any problems you or family [...] as aspirin (more content not included)... Normal [facility] Lab Reportson 07-30-2023 Lab Reports [id number]#1.00TIFF Normal [facility] Lab Reportson 07-29-2023 Lab Reports [id number]#1.00TIFF Normal [facility] XR LSPINE MIN 4 VIEWSon 05-04 XR [...] by: ALL RICARDO Date: 2022-05-26 19:58 Normal [facility] Basic metabolic 2000 panelon 06-27-2021 Anion gap [Moles/Vol] 8 mmol/L Normal 6-18 [place] Comment on above: Performed By: #### 2 4321-2 #### [facility] [address] [place] [address] Calcium [Mass/Vol] 8.7 mg/dL Low 8.9-10.3 [place] Comment on above: Performed By: #### 2 4321-2 #### [facility] [address] [place] [address] Chloride [Moles/Vol] 106 mmol/L Normal 98-107 [place] Comment on above: Performed By: #### 2 4321-2 #### [facility] [address] [place] [address] CO2 [Moles/Vol] 26 mmol/L Normal 22-32 [facility] Comment on above: Performed By: #### 2 4321-2 #### [facility] [address] [place] [address] Creatinine [Mass/Vol] 1.05 mg/dL Normal 0.60-1.30 [place] Comment on above: Performed By: #### 2 4321-2 #### [facility] [address] [place] [address] GFR/1.73 sq M.predicted among non-blacks MDRD (S/P/Bld) [Vol rate/Area] 76 mL/min/{1.73_m2} Normal [place] Comment on above: Performed By: #### 2 4321-2 #### [facility] [address] [place] [address] Glucose [Mass/Vol] 126 mg/dL High 70-99 [place] Comment on above: Performed By: #### 2 4321-2 #### [facility] [address] [place] [address] Potassium [Moles/Vol] 4.3 mmol/L Normal 3.6-5.1 [place] Comment on above: Performed By: #### 2 4321-2 #### [facility] [address] [place] [address] Sodium [Moles/Vol] 140 mmol/L Normal 136-145 [place] Comment on above: Performed By: #### 2 4321-2 #### [facility] [address] [place] [address] Urea nitrogen [Mass/Vol] 16 mg/dL Normal 8-20 [place] Comment on above: Performed By: #### 2 4321-2 #### [facility] [address] [place] [address] Urea nitrogen/Creatinine [Mass ratio] 15.2 mg/mg Normal 12.0-20.0 [place] Comment on above: Performed By: #### 2 4321-2 #### [facility] [address] [place] [address] Hemogram and platelets WO di fferential panel (Bld)on 06-27-2021 Basophils (Bld) [#/Vol] 0.00 10*3/uL Normal 0.00-0.20 [place] Comment on above: Performed By: #### 2 4317-0 #### [facility] [address] [place] [address] 46724 Basophils/100 WBC (Bld) 0.1 % Normal 0.0-2.0 [place] Comment on above: Performed By: #### 2 4317-0 #### [facility] [address] [place] [address] 36330 Eosinophils (Bld) [#/Vol] 0.00 10*3/uL Normal 0.00-0.70 [place] Comment on above: Performed By: #### 2 4317-0 #### [facility] [address] [place] [address] 07892 Eosinophils/100 WBC (Bld) 0.0 % Normal 0.0-7.0 [place] Comment on above: Performed By: #### 2 4317-0 #### [facility] [address] [place] [address] 91891 Erythrocyte distribution width (RBC) [Ratio] 13.2 % Normal 11.0-14.8 [place] Comment on above: Performed By: #### 2 4317-0 #### [facility] [address] [place] [address]26 Hematocrit (Bld) [Volume fraction] 36.3 % Low 39.0-49.0 [place] Comment on above: Performed By: #### 2 4317-0 #### [facility] [address] [place] [address] Hemoglobin (Bld) [Mass/Vol] 12.2 g/dL Low 13.5-17.5 [place] Comment on above: Performed By: #### 2 4317-0 #### [facility] [address] [place] [address]40[address] Lymphocytes (Bld) [#/Vol] 0.70 10*3/uL Low 1.00-4.80 [place] Comment on above: Performed By: #### 2 4317-0 #### [facility] [address] [place] [address] 44181 Lymphocytes/100 WBC (Bld) 7.3 % Low 22.0-44.0 [place] Comment on above: Performed By: #### 2 4317-0 #### [facility] [address] [place] [address] 31476 MCH 30.0 pcg Normal 27.0-34.0 [place] Comment on above: Performed By: #### 2 4317-0 #### [facility] [address] [place] [address] 15561 MCHC (RBC) [Mass/Vol] 33.5 g/dL Normal 32.0-36.0 [place] Comment on above: Performed By: #### 2 4317-0 #### [facility] [address] [place] [address] 19433 MCV (RBC) [Entitic vol] 89.5 fL Normal 80.0-97.0 [place] Comment on above: Performed By: #### 2 4317-0 #### [facility] [address] [place] [address] 69873 Monocytes (Bld) [#/Vol] 1.00 10*3/uL High 0.00-0.90 [place] Comment on above: Performed By: #### 2 4317-0 #### [facility] [address] [place] [address] 93498 Monocytes/100 WBC (Bld) 11.6 % Normal 0.0-12.0 [place] Comment on above: Performed By: #### 2 4317-0 #### [facility] [address] [place] [address] 76901 Neutrophils Absolute 7.30 K/mcL Normal 1.80-7.70 [place] Comment on above: Performed By: #### 2 4317-0 #### [facility] [address] [place] [address] 53299 Neutrophils/100 WBC (Bld) 81.0 % High 40.0-70.0 [place] Comment on above: Performed By: #### 2 4317-0 #### [facility] [address] [place] [address] 16009 Platelet mean volume (Bld) [Entitic vol] 7.0 fL Normal 6.2-12.1 [place] Comment on above: Performed By: #### 2 4317-0 #### [facility] [address] [place] [address] 48682 Platelets (Bld) [#/Vol] 195 10*3/uL Normal 142-424 [place] Comment on above: Performed By: #### 2 4317-0 #### [facility] [address] [place] [address] 28809 RBC (Bld) [#/Vol] 4.06 10*6/uL Low 4.30-5.70 [place] Comment on above: Performed By: #### 2 4317-0 #### [facility] [address] [place] [address] 98864 WBC (Bld) [#/Vol] 9.0 10*3/uL Normal 4.6-10.2 [place] Comment on above: Performed By: #### 2 4317-0 #### [facility] [address] [place] [address] 70009 PT Coag (PPP) [Time]on 06-27 INR Coag (PPP) [Relative time] 1.2 {INR} Normal <=5.0 [place] Comment on above: Result Comment: The recommended therapeutic INR range for most cardiac indications is 2.0-3.0 For high intensity therapy (i.e. mechanical heart valves), the recommended range is 2.5-3.5 Performed By: #### 2 4321-2 #### [facility] [address] [place] [address] 01374 Prothrombin timeon PT Coag (PPP) [Time] 15.0 s High 11.9-14.7 [place] Comment on above: Performed By: #### 2 4321-2 #### [facility] [address] [place] [address] 34824 Glucose Auto test strip (Bld ) [Mass/Vol]on 06-26-2021 Glucose [Mass/Vol] 82 mg/dL Normal 70-99 [place] Comment on above: Performed By: #### 2 340-8 #### [facility] [address] [place] [address] 59580 Glucose [Mass/Vol] 146 mg/dL High 70-99 [place] Comment on above: Performed By: #### 2 340-8 #### [facility] [address] [place] [address] 22502 PT Coag (PPP) [Time]on 06-26 INR Coag (PPP) [Relative time] 1.2 {INR} Normal <=5.0 [place] Comment on above: Result Comment: The recommended therapeutic INR range for most cardiac indications is 2.0-3.0 For high intensity therapy (i.e. mechanical heart valves), the recommended range is 2.5-3.5 Performed By: #### 5 902-2 #### [facility] [address] [place] [address] 11867 INR Coag (PPP) [Relative time] 1.1 {INR} Normal <=5.0 [place] Comment on above: Result Comment: The recommended therapeutic INR range for most cardiac indications is 2.0-3.0 For high intensity therapy (i.e. mechanical heart valves), the recommended range is 2.5-3.5 Performed By: #### 5 902-2 #### [facility] [address] [place] [address] 98245 Prothrombin timeon PT Coag (PPP) [Time] 14.7 s Normal 11.9-14.7 [place] Comment on above: Performed By: #### 5 902-2 #### [facility] [address] [place] [address] 68758 PT Coag (PPP) [Time] 14.1 s Normal 11.9-14.7 [place] Comment on above: Performed By: #### 5 902-2 #### [facility] [address] [place] [address] 01255 XR FLUORO UP TO 1 HOUR (STAT ISTICS)(NO REPORT)on 06-26-2021 XR FLUORO UP TO 1 HOUR (STATISTICS)(NO REPORT) This order has been auto-finalized and does not contain a result. Normal [place] XR Fluoro Up To 1 Hour (Stat [...] complication. -------- FINAL REPORT -------- Dictated By: Erica Romo Dictated Date: 06/26/2021 13:48 Assigned Physician: Erica Romo Reviewed and Electronically Signed By: Erica Romo Signed Date: 06/26/2021 13:50 Workstation ID: [id number] Transcribed By: Self Edit Transcribed Date: 06/26/2021 13:48 Normal [place] [facility]04 SARS-CoV-2 (COVID-19) RNA NANCY+probe Ql (Unsp spec) Not detected Normal NOT DETECTED [facility] Comment on above: Result Comment: This test is not yet approved or cleared by the [place] FDA. When there are no FDA-approved or cleared tests available, and other criteria are met, FDA can make tests available under an emergency access mechanism called an Emergency Use Authorization (EUA). The EUA for this test is supported by the [place] of Health and Human Service's (HHS's) declaration [...] consistent with SARS-CoV-2. Performed By: #### C VDTB #### [facility] [address] [place] [address] Dr. Grant Carrillo Basic metabolic 2000 panelon 06-03-2021 Anion gap [Moles/Vol] 9 mmol/L Normal 6-18 [place] Comment on above: Performed By: #### 2 4321-2 #### [facility] [address] [place] [address] Calcium [Mass/Vol] 9.4 mg/dL Normal 8.9-10.3 [place] Comment on above: Performed By: #### 2 4321-2 #### [facility] [address] [place] [address] Chloride [Moles/Vol] 105 mmol/L Normal 98-107 [place] Comment on above: Performed By: #### 2 4321-2 #### [facility] [address] [place] [address] CO2 [Moles/Vol] 25 mmol/L Normal 22-32 [facility] Comment on above: Performed By: #### 2 4321-2 #### [facility] [address] [place] [address] Creatinine [Mass/Vol] 1.05 mg/dL Normal 0.60-1.30 [place] Comment on above: Performed By: #### 2 4321-2 #### [facility] [address] [place] [address] GFR/1.73 sq M.predicted among non-blacks MDRD (S/P/Bld) [Vol rate/Area] 76 mL/min/{1.73_m2} Normal [place] Comment on above: Performed By: #### 2 4321-2 #### [facility] [address] [place] [address] Glucose [Mass/Vol] 96 mg/dL Normal 70-99 [place] Comment on above: Performed By: #### 2 4321-2 #### [facility] [address] [place] [address] Potassium [Moles/Vol] 4.4 mmol/L Normal 3.6-5.1 [place] Comment on above: Performed By: #### 2 4321-2 #### [facility] [address] [place] [address] Sodium [Moles/Vol] 139 mmol/L Normal 136-145 [place] Comment on above: Performed By: #### 2 4321-2 #### [facility] [address] [place] [address] 32233 Urea nitrogen [Mass/Vol] 23 mg/dL High 8-20 [place] Comment on above: Performed By: #### 2 4321-2 #### [facility] [address] [place] [address] 90416 Urea nitrogen/Creatinine [Mass ratio] 21.9 mg/mg High 12.0-20.0 [place] Comment on above: Performed By: #### 2 4321-2 #### [facility] [address] [place] [address] 84452 Hemogram and platelets WO di fferential panel (Bld)on 06-03-2021 Basophils (Bld) [#/Vol] 0.10 10*3/uL Normal 0.00-0.20 [place] Comment on above: Performed By: #### 2 4317-0 #### [facility] [address] [place] [address] 22305 Basophils/100 WBC (Bld) 0.5 % Normal 0.0-2.0 [place] Comment on above: Performed By: #### 2 4317-0 #### [facility] [address] [place] [address] 97791 Eosinophils (Bld) [#/Vol] 0.10 10*3/uL Normal 0.00-0.70 [place] Comment on above: Performed By: #### 2 4317-0 #### [facility] [address] [place] [address] 80218 Eosinophils/100 WBC (Bld) 0.6 % Normal 0.0-7.0 [place] Comment on above: Performed By: #### 2 4317-0 #### [facility] [address] [place] [address] 24484 Erythrocyte distribution width (RBC) [Ratio] 13.7 % Normal 11.0-14.8 [place] Comment on above: Performed By: #### 2 4317-0 #### [facility] [address] [place] [address] 64003 Hematocrit (Bld) [Volume fraction] 45.9 % Normal 39.0-49.0 [place] Comment on above: Performed By: #### 2 4317-0 #### [facility] [address] [place] [address] 32420 Hemoglobin (Bld) [Mass/Vol] 15.1 g/dL Normal 13.5-17.5 [place] Comment on above: Performed By: #### 2 4317-0 #### [facility] [address] [place] [address] 96631 Lymphocytes (Bld) [#/Vol] 1.20 10*3/uL Normal 1.00-4.80 [place] Comment on above: Performed By: #### 2 4317-0 #### [facility] [address] [place] [address] 51858 Lymphocytes/100 WBC (Bld) 11.3 % Low 22.0-44.0 [place] Comment on above: Performed By: #### 2 4317-0 #### [facility] [address] [place] [address] 00217 MCH 29.8 pcg Normal 27.0-34.0 [place] Comment on above: Performed By: #### 2 4317-0 #### [facility] [address] [place] [address] 45788 MCHC (RBC) [Mass/Vol] 33.0 g/dL Normal 32.0-36.0 [place] Comment on above: Performed By: #### 2 4317-0 #### [facility] [address] [place] [address] 11685 MCV (RBC) [Entitic vol] 90.4 fL Normal 80.0-97.0 [place] Comment on above: Performed By: #### 2 4317-0 #### [facility] [address] [place] [address] 20077 Monocytes (Bld) [#/Vol] 1.10 10*3/uL High 0.00-0.90 [place] Comment on above: Performed By: #### 2 4317-0 #### [facility] [address] [place] [address] 06586 Monocytes/100 WBC (Bld) 9.8 % Normal 0.0-12.0 [place] Comment on above: Performed By: #### 2 4317-0 #### [facility] [address] [place] [address] 56505 Neutrophils Absolute 8.50 K/mcL High 1.80-7.70 [place] Comment on above: Performed By: #### 2 4317-0 #### [facility] [address] [place] [address] 78261 Neutrophils/100 WBC (Bld) 77.8 % High 40.0-70.0 [place] Comment on above: Performed By: #### 2 4317-0 #### [facility] [address] [place] [address] 51492 Platelet mean volume (Bld) [Entitic vol] 7.1 fL Normal 6.2-12.1 [place] Comment on above: Performed By: #### 2 4317-0 #### [facility] [address] [place] [address] Platelets (Bld) [#/Vol] 379 10*3/uL Normal 142-424 [place] Comment on above: Performed By: #### 2 4317-0 #### [facility] [address] [place] [address] RBC (Bld) [#/Vol] 5.08 10*6/uL Normal 4.30-5.70 [place] Comment on above: Performed By: #### 2 4317-0 #### [facility] [address] [place] [address] WBC (Bld) [#/Vol] 10.9 10*3/uL High 4.6-10.2 [place] Comment on above: Performed By: #### 2 4317-0 #### [facility] [address] [place] [address] Cardiovascular Lab Reporton 01-29-2021 Cardiovascular Lab Report [facility] Patient Name: Sukhdeep Gamino [facility] MR #: [id number] Physician: Adriana Huff, Department of M.D. Medicine Service Date: 01/28/2021 Division of Birthdate: 1960 Cardiology Room #: Adult Cardiovascular Services [place] [address] Cardiovascular Laboratory Report FINAL IMPRESSIONS: 1. Hteo-xa-salarejq single-vessel coronary artery disease. 2. Mildly reduced [...] Huff and/or a nurse practitioner in the [place] outpatient setting in the next 2 to 3 months. 5. Follow up with Dr. Fatima as scheduled; consider referral to a plant production manager as clinically appropriate. PROCEDURES: Ultrasound-guided access to [...] right internal jugular vein was obtained. A 6-Macedonian 11 cm sheath was inserted without difficulty. [...] to access the left radial artery. A 6-Macedonian glide sheath was inserted without difficulty. Bilateral [...] Huff M.D. Date Trans: 01/29/2021 02:16 A/wai [id number] cc: Alek Fatima M.D. [address] [address] [place] [facility] Vital Signs Date Time Vital Sign Value Performing Clinician Facility 10-03-2024 14:23-0500 Body height 177.8 cm [facility] 4 Work Phone: [facility] 10-03-2024 14:23-0500 Body mass index (BMI) [Ratio] 28.6 kg/m2 [facility] 4 Work Phone: [facility] 10-03-2024 14:23-0500 Body temperature 98.2 [degF] Pac 4 Work Phone: [facility] 10-03-2024 14:23-0500 Body weight 90.4 kg [facility] 4 Work Phone: [facility] 10-03-2024 14:23-0500 Diastolic blood pressure 69 mm[Hg] Pacc 4 Work Phone: [facility] 10-03-2024 14:23-0500 Heart rate 82 /min P[facility] 4 Work Phone: [facility] 10-03-2024 14:23-0500 Respiratory rate 16 /min Pacc 4 Work Phone: [facility] 10-03-2024 14:23-0500 SaO2% (BldA) [Mass fraction] 99 % Pacc 4 Work Phone: [facility] 10-03-2024 14:23-0500 Systolic blood pressure 119 mm[Hg] Pacc 4 Work Phone: [facility] 09-21-2024 09:28-0500 Body height 177.8 cm Brando-Kaitlynn Castaneda DO Work Phone: [facility] 09-21-2024 09:28-0500 Body mass index (BMI) [Ratio] 27.9 kg/m2 Brando-Kaitlynn Castaneda DO Work Phone: [facility] 09-21-2024 09:28-0500 Body weight 88.2 kg Brando-Kaitlynn Castaneda DO Work Phone: [facility] 09-21-2024 09:28-0500 Diastolic blood pressure 81 mm[Hg] Brando-Kaitlynn Castaneda DO Work Phone: [facility] 09-21-2024 09:28-0500 Heart rate 76 /min Brando-Kaitlynn Castaneda DO Work Phone: [facility] 09-21-2024 09:28-0500 Systolic blood pressure 142 mm[Hg] Brando-Kaitlynn Castaneda DO Work Phone: [facility] 09-13-2024 09:14-0500 Body temperature 96.1 [degF] [facility] Work Phone: [facility] 09-13-2024 09:14-0500 Diastolic blood pressure 83 mm[Hg] [facility] Work Phone: [facility] 09-13-2024 09:14-0500 Heart rate 88 /min Lab[facility] Work Phone: [facility] 09-13-2024 09:14-0500 Respiratory rate 16 /min [facility] Work Phone: [facility] 09-13-2024 09:14-0500 SaO2% (BldA) [Mass fraction] 100 % [facility] Work Phone: [facility] 09-13-2024 09:14-0500 Systolic blood pressure 134 mm[Hg] [facility] Work Phone: [facility] 08-26-2024 09:09-0500 Body mass index (BMI) [Ratio] 26.98 kg/m2 MARIA DE JESUS Kamara MD Work Phone: [facility] 08-26-2024 09:09-0500 Body weight 85.3 kg MARIA DE JESUS Kamara MD Work Phone: [facility] 08-01-2024 08:35-0500 Body mass index (BMI) [Ratio] 28.03 kg/m2 MARIA DE JESUS Kamara MD Work Phone: [facility] 08-01-2024 08:35-0500 Body temperature 98.2 [degF] MARIA DE JESUS Kamara MD Work Phone: [facility] 08-01-2024 08:35-0500 Body weight 88.6 kg MARIA DE JESUS Kamara MD Work Phone: [facility] 08-01-2024 08:35-0500 Diastolic blood pressure 95 mm[Hg] MARIA DE JESUS Kamara MD Work Phone: [facility] Comment on above: repeat 138/104 08-01-2024 08:35-0500 Heart rate 118 /min MARIA DE JESUS Kamara MD Work Phone: [facility] 08-01-2024 08:35-0500 Respiratory rate 16 /min MARIA DE JESUS Kamara MD Work Phone: [facility] 08-01-2024 08:35-0500 SaO2% (BldA) [Mass fraction] 96 % MARIA DE JESUS Kamara MD Work Phone: [facility] 08-01-2024 08:35-0500 Systolic blood pressure 136 mm[Hg] MARIA DE JESUS Kamara MD Work Phone: [facility] Comment on above: repeat 138/104 07-25-2024 15:36-0500 Body mass index (BMI) [Ratio] 27.99 kg/m2 MARIA DE JESUS Kamara MD Work Phone: [facility] 07-25-2024 15:36-0500 Body temperature 96.69 [degF] MARIA DE JESUS Kamara MD Work Phone: [facility] 07-25-2024 15:36-0500 Body weight 88.5 kg MARIA DE JESUS Kamara MD Work Phone: [facility] 07-25-2024 15:36-0500 Diastolic blood pressure 96 mm[Hg] MARIA DE JESUS Kamara MD Work Phone: [facility] 07-25-2024 15:36-0500 Heart rate 107 /min MARIA DE JESUS Kamara MD Work Phone: [facility] 07-25-2024 15:36-0500 Respiratory rate 18 /min MARIA DE JESUS Kamara MD Work Phone: [facility] 07-25-2024 15:36-0500 SaO2% (BldA) [Mass fraction] 100 % MARIA DE JESUS Kamara MD Work Phone: [facility] 07-25-2024 15:36-0500 Systolic blood pressure 144 mm[Hg] MARIA DE JESUS Kamara MD Work Phone: [facility] 07-19-2024 08:42-0500 Body mass index (BMI) [Ratio] 27.2 kg/m2 Mil Crum MD Work Phone: [facility] 07-19-2024 08:42-0500 Body temperature 98.1 [degF] Mil Crum MD Work Phone: [facility] 07-19-2024 08:42-0500 Body weight 86 kg Mil Crum MD Work Phone: [facility] 07-19-2024 08:42-0500 Diastolic blood pressure 101 mm[Hg] Mil Crum MD Work Phone: [facility] Comment on above: repeat 158/92 07-19-2024 08:42-0500 Heart rate 101 /min Mil Crum MD Work Phone: [facility] 07-19-2024 08:42-0500 Respiratory rate 18 /min Mil Crum MD Work Phone: [facility] 07-19-2024 08:42-0500 SaO2% (BldA) [Mass fraction] 100 % Mil Crum MD Work Phone: [facility] 07-19-2024 08:42-0500 Systolic blood pressure 155 mm[Hg] Mil Crum MD Work Phone: [facility] Comment on above: repeat 158/92 07-11-2024 16:31-0500 Body mass index (BMI) [Ratio] 27.33 kg/m2 MARIA DE JESUS Kamara MD Work Phone: [facility] 07-11-2024 16:31-0500 Body temperature 97.39 [degF] MARIA DE JESUS Kamara MD Work Phone: [facility] 07-11-2024 16:31-0500 Body weight 86.4 kg MARIA DE JESUS Kamara MD Work Phone: [facility] 07-11-2024 16:31-0500 Diastolic blood pressure 91 mm[Hg] MARIA DE JESUS Kamara MD Work Phone: [facility] 07-11-2024 16:31-0500 Heart rate 86 /min MARIA DE JESUS Kamara MD Work Phone: [facility] 07-11-2024 16:31-0500 Respiratory rate 16 /min MARIA DE JESUS Kamara MD Work Phone: [facility] 07-11-2024 16:31-0500 SaO2% (BldA) [Mass fraction] 100 % MARIA DE JESUS Kamara MD Work Phone: [facility] 07-11-2024 16:31-0500 Systolic blood pressure 155 mm[Hg] MARIA DE JESUS Kamara MD Work Phone: [facility] 07-04-2024 16:01-0500 Body mass index (BMI) [Ratio] 27.2 kg/m2 MARIA DE JESUS Kamara MD Work Phone: [facility] 07-04-2024 16:01-0500 Body temperature 98.29 [degF] MARIA DE JESUS Kamara MD Work Phone: [facility] 07-04-2024 16:01-0500 Body weight 86 kg MARIA DE JESUS Kamara MD Work Phone: [facility] 07-04-2024 16:01-0500 Diastolic blood pressure 95 mm[Hg] MARIA DE JESUS Kamara MD Work Phone: [facility] 07-04-2024 16:01-0500 Heart rate 87 /min MARIA DE JESUS Kamara MD Work Phone: [facility] 07-04-2024 16:01-0500 Respiratory rate 18 /min MARIA DE JESUS Kamara MD Work Phone: [facility] 07-04-2024 16:01-0500 SaO2% (BldA) [Mass fraction] 98 % MARIA DE JESUS Kamara MD Work Phone: [facility] 07-04-2024 16:01-0500 Systolic blood pressure 133 mm[Hg] MARIA DE JESUS Kamara MD Work Phone: [facility] 06-27-2024 15:56-0500 Body mass index (BMI) [Ratio] 27.36 kg/m2 MARIA DE JESUS Kamara MD Work Phone: [facility] 06-27-2024 15:56-0500 Body temperature 97.59 [degF] MARIA DE JESUS Kamara MD Work Phone: [facility] 06-27-2024 15:56-0500 Body weight 86.5 kg MARIA DE JESUS Kamara MD Work Phone: [facility] 06-27-2024 15:56-0500 Diastolic blood pressure 87 mm[Hg] MARIA DE JESUS Kamara MD Work Phone: [facility] 06-27-2024 15:56-0500 Heart rate 102 /min MARIA DE JESUS Kamara MD Work Phone: [facility] 06-27-2024 15:56-0500 Respiratory rate 16 /min MARIA DE JESUS Kamara MD Work Phone: [facility] 06-27-2024 15:56-0500 SaO2% (BldA) [Mass fraction] 100 % MARIA DE JESUS Kamara MD Work Phone: [facility] 06-27-2024 15:56-0500 Systolic blood pressure 129 mm[Hg] MARIA DE JESUS Kamara MD Work Phone: [facility] 06-15-2024 14:33-0500 Body mass index (BMI) [Ratio] 27.17 kg/m2 MARIA DE JESUS Kamara MD Work Phone: [facility] 06-15-2024 14:33-0500 Body weight 85.9 kg MARIA DE JESUS Kamara MD Work Phone: [facility] 06-06-2024 14:57-0500 Body mass index (BMI) [Ratio] 27.33 kg/m2 [facility] [place] Work Phone: [facility] 06-06-2024 14:57-0500 Body temperature 98.1 [degF] [facility] Work Phone: [facility] 06-06-2024 14:57-0500 Body weight 86.4 kg [facility] Work Phone: [facility] 06-06-2024 14:57-0500 Diastolic blood pressure 90 mm[Hg] [facility] Work Phone: [facility] 06-06-2024 14:57-0500 Heart rate 96 /min [facility] Work Phone: [facility] 06-06-2024 14:57-0500 Respiratory rate 16 /min [facility] Work Phone: [facility] 06-06-2024 14:57-0500 SaO2% (BldA) [Mass fraction] 100 % [facility] Work Phone: [facility] 06-06-2024 14:57-0500 Systolic blood pressure 137 mm[Hg] [facility] Work Phone: [facility] 05-19-2024 10:44-0400 Body temperature 97.5 [degF] MARIA DE JESUS Kamara MD Work Phone: [facility] 05-19-2024 10:44-0400 Diastolic blood pressure 92 mm[Hg] MARIA DE JESUS Kamara MD Work Phone: [facility] 05-19-2024 10:44-0400 Heart rate 80 /min MARIA DE JESUS Kamara MD Work Phone: [facility] 05-19-2024 10:44-0400 Respiratory rate 16 /min MARIA DE JESUS Kamara MD Work Phone: [facility] 05-19-2024 10:44-0400 SaO2% (BldA) [Mass fraction] 100 % MARIA DE JESUS Kamara MD Work Phone: [facility] 05-19-2024 10:44-0400 Systolic blood pressure 138 mm[Hg] MARIA DE JESUS Kamara MD Work Phone: [facility] 04-28-2024 09:51-0400 Body mass index (BMI) [Ratio] 27.33 kg/m2 MARIA DE JESUS Kamara MD Work Phone: [facility] 04-28-2024 09:51-0400 Body temperature 98.2 [degF] MARIA DE JESUS Kamara MD Work Phone: [facility] 04-28-2024 09:51-0400 Body weight 86.4 kg MARIA DE JESUS Kamara MD Work Phone: [facility] 04-28-2024 09:51-0400 Diastolic blood pressure 87 mm[Hg] MARIA DE JESUS Kamara MD Work Phone: [facility] 04-28-2024 09:51-0400 Heart rate 81 /min MARIA DE JESUS Kamara MD Work Phone: [facility] 04-28-2024 09:51-0400 Respiratory rate 16 /min MARIA DE JESUS Kamara MD Work Phone: [facility] 04-28-2024 09:51-0400 SaO2% (BldA) [Mass fraction] 100 % MARIA DE JESUS Kamara MD Work Phone: [facility] 04-28-2024 09:51-0400 Systolic blood pressure 146 mm[Hg] MARIA DE JESUS Kamara MD Work Phone: [facility] 11-03-2023 12:30-0400 Body height 177.8 cm Pacc 9 Work Phone: [facility] 11-03-2023 12:30-0400 Body temperature 97.2 [degF] Pacc 9 Work Phone: [facility] 11-03-2023 12:30-0400 Body weight 86.8 kg Pacc 9 Work Phone: [facility] 11-03-2023 12:30-0400 Diastolic blood pressure 82 mm[Hg] Pacc 9 Work Phone: [facility] 11-03-2023 12:30-0400 Heart rate 87 /min Pacc 9 Work Phone: [facility] 11-03-2023 12:30-0400 SaO2% (BldA) [Mass fraction] 99 % Pacc 9 Work Phone: [facility] 11-03-2023 12:30-0400 Systolic blood pressure 117 mm[Hg] Pacc 9 Work Phone: [facility] 10-02-2023 13:36-0500 Body height 177.8 cm Roosevelt Bah MD Work Phone: [facility] 10-02-2023 13:36-0500 Body weight 87.25 kg Roosevelt Bah MD Work Phone: [facility] 10-02-2023 13:36-0500 Diastolic blood pressure 96 mm[Hg] Roosevelt Bah MD Work Phone: [facility] 10-02-2023 13:36-0500 Heart rate 66 /min Roosevelt Bah MD Work Phone: [facility] 10-02-2023 13:36-0500 Systolic blood pressure 154 mm[Hg] Roosevelt Bah MD Work Phone: [facility] 08-31-2023 09:12-0500 Diastolic blood pressure 88 mm[Hg] Chadd WEEKS [facility] 08-31-2023 09:12-0500 Mean blood pressure 102 mm[Hg] Chadd WEEKS [facility] 08-31-2023 09:12-0500 Systolic blood pressure 131 mm[Hg] Chadd WEEKS [facility] 08-31-2023 09:06-0500 Blood Pressure Location Chadd WEEKS [facility] 08-31-2023 09:06-0500 Diastolic blood pressure 90 mm[Hg] Chadd WEEKS [facility] 08-31-2023 09:06-0500 Heart rate 68 /min Chadd WEEKS [facility] 08-31-2023 09:06-0500 Respiratory rate 16 /min Chadd WEEKS [facility] 08-31-2023 09:06-0500 Systolic blood pressure 145 mm[Hg] Chadd WEEKS [facility] 08-25-2023 15:20-0500 Diastolic blood pressure 84 mm[Hg] Chadd WEEKS [facility] 08-25-2023 15:20-0500 Heart rate 82 /min Chadd WEEKS [facility] 08-25-2023 15:20-0500 Systolic blood pressure 128 mm[Hg] Chadd WEEKS [facility] 08-10-2023 11:32-0500 Diastolic blood pressure 105 mm[Hg] Chadd WEEKS [facility] 08-10-2023 11:32-0500 Mean blood pressure 117 mm[Hg] Chadd WEEKS [facility] 08-10-2023 11:32-0500 Systolic blood pressure 142 mm[Hg] Chadd WEEKS [facility] 08-10-2023 11:26-0500 Blood Pressure Location Chadd WEEKS [facility] 08-10-2023 11:26-0500 Diastolic blood pressure 106 mm[Hg] Chadd WEEKS [facility] 08-10-2023 11:26-0500 Heart rate 80 /min Chadd WEEKS [facility] 08-10-2023 11:26-0500 Respiratory rate 16 /min Chadd WEEKS [facility] 08-10-2023 11:26-0500 Systolic blood pressure 144 mm[Hg] Chadd WEEKS [facility] [place] Encounters Encounter Date Encounter Type Care Provider Facility Start: 03-01-2025 End: 03-01-2025 Office outpatient visit 15 minutes Viral Plata MD Work Phone: [facility] [place] [facility] Comment on above: Tinea corporis (Prim arnold Dx); Skin tag; Melanocytic nevus of trunk; Seborrheic keratosis; Lentigines; Actinic keratosis Start: 03-01-2025 End: 03-01-2025 ambulatory VIRAL PLATA Not Available Start: 03-01-2025 End: 03-01-2025 Bamemelia flowsheet Viral Plata MD Work Phone: [facility] [place] [facility] Start: 03-01-2025 End: 03-01-2025 Kurt Plata MD Work Phone: [facility] Start: 12-14-2024 End: 12-14-2024 Office outpatient visit 15 minutes Arnulfo Kamara MD Work Phone: Radiation Oncology Comment on above: Malignant neoplasm o f prostate (HCC) (Primary Dx) Start: 12-14-2024 End: 12-14-2024 Orders Only Arnulfo Kamara MD Work Phone: Radiation Oncology Start: 12-07-2024 End: 12-07-2024 ambulatory ALEK FATIMA Facility:[facility] Start: 11-14-2024 End: 11-15-2024 Refill Katrina Warner APRN.CNP Work Phone: Urology Comment on above: Refill Request Start: 11-02-2024 End: 11-02-2024 ambulatory BRANDO-KAITLYNN CASTANEDA Facility:[facility] Start: 11-02-2024 End: 11-02-2024 Patient encounter procedure Brando-Kaitlynn Castaneda DO Work Phone: General Surgery Comment on above: Postop check (Primar y Dx) Start: 10-17-2024 End: 10-17-2024 ambulatory PORFIRIO CASTANEDA Facility:[facility] Start: 10-03-2024 End: 10-03-2024 ambulatory HAILY CLINE Facility:[facility] Start: 10-03-2024 End: 10-03-2024 [place] [id number] Work Phone: Pre Anesthesia Start: 10-03-2024 End: 10-03-2024 ambulatory PORFIRIO CASTANEDA Facility:[facility] Start: 10-03-2024 End: 10-03-20[address] [facility] Work Phone: Pre Anesthesia Comment on above: Pre-op evaluation (P rimary Dx); Paroxysmal atrial fibrillation (HCC); Mixed hyperlipidemia; Essential hypertension; Chronic systolic (congestive) heart failure (HCC); Coronary artery disease involving [place] coronary artery of [place] heart without angina pectoris; Asthma, unspecified asthma severity, unspecified whether complicated, unspecified whether persistent; History of prostate cancer Start: 10-03-2024 Encounter for other preprocedural examination MARIA DE JESUS KAMARA [facility] Start: 10-03-2024 End: 10-03-2024 Preprocedural examination done [facility] Work Phone: [facility] Start: 09-29-2024 End: 09-29-2024 ambulatory [facility] Start: 09-29-2024 End: 09-29-2024 Encounter for other preprocedural examination [facility] Start: 09-21-2024 End: 09-21-2024 Telephone encounter Porfirio Castaneda DO Work Phone: [facility] Comment on above: Schedule Surgery Start: 09-21-2024 End: 09-21-2024 ambulatory Arnulfo KAMARA Facility:[facility] Start: 09-21-2024 End: 09-21-2024 Patient encounter procedure Porfirio Castaneda DO Work Phone: General Surgery Comment on above: Non-recurrent unilat eral inguinal hernia without obstruction or gangrene Start: 09-13-2024 End: 09-13-2024 Orders Only Arnulfo Kamara MD Work Phone: Radiation Oncology Comment on above: Malignant neoplasm o f prostate (HCC) (Primary Dx) Start: 09-06-2024 End: 09-06-2024 Telephone encounter Arnulfo Kamara MD Work Phone: Radiation Oncology Comment on above: Future Appointment Start: 08-30-2024 End: 08-30-2024 Orders Only Arnulfo Kamara MD Work Phone: Radiation Oncology Start: 08-26-2024 End: 08-26-2024 ambulatory Arnulfo KAMARA Facility:[facility] Start: 08-26-2024 End: 08-26-2024 Patient encounter procedure Arnulfo Kamara MD Work Phone: Radiation Oncology Comment on above: Malignant neoplasm o f prostate (HCC) (Primary Dx); Non-recurrent unilateral inguinal hernia without obstruction or gangrene Start: 08-24-2024 End: 08-24-2024 ambulatory Arnulfo KAMARA Facility:[facility] Start: 08-05-2024 End: 08-19-2024 Patient encounter procedure Arnulfo Kamara MD Work Phone: Radiation Oncology Start: 08-05-2024 End: 08-19-2024 Radiation Oncology Note Arnulfo Kamara MD Work Phone: Radiation Oncology Comment on above: Completion Note Start: 08-05-2024 End: 08-05-2024 ambulatory ALEK M HOY Facility:[facility] Start: 08-04-2024 End: 08-04-2024 ambulatory ALEK M HOY Facility:[facility] Start: 08-02-2024 End: 08-02-2024 ambulatory ALEK M HOY Facility:[facility] Start: 08-01-2024 End: 08-01-2024 Patient encounter procedure Arnulfo Kamara MD Work Phone: Radiation Oncology Comment on above: Malignant neoplasm o f prostate (HCC) (Primary Dx) Start: 08-01-2024 End: 08-01-2024 ambulatory Arnulfo KAMARA Facility:[facility] Start: 07-29-2024 End: 07-29-2024 ambulatory ALEK M HOY Facility:[facility] Start: 07-28-2024 End: 07-28-2024 ambulatory ALEK M HOY Facility:[facility] Start: 07-26-2024 End: 07-26-2024 ambulatory ALEK M HOY Facility:[facility] Start: 07-25-2024 End: 07-25-2024 Patient encounter procedure Arnulfo Kamara MD Work Phone: Radiation Oncology Comment on above: Malignant neoplasm o f prostate (HCC) (Primary Dx) Start: 07-25-2024 End: 07-25-2024 ambulatory Arnulfo KAMARA Facility:[facility] Start: 07-22-2024 End: 07-22-2024 ambulatory ALEK M HOY Facility:[facility] Start: 07-21-2024 End: 07-22-2024 ambulatory Arnulfo KAMARA Facility:[facility] Start: 07-21-2024 End: 07-29-2024 Telephone encounter Arnulfo Kamara MD Work Phone: Radiation Oncology Comment on above: Orders Start: 07-20-2024 End: 07-20-2024 ambulatory ALEK M HOY Facility:[facility] Start: 07-19-2024 End: 07-19-2024 ambulatory ALEK M HOY Facility:[facility] Start: 07-19-2024 End: 07-19-2024 Patient encounter procedure Mil Crum MD Work Phone: Radiation Oncology Comment on above: Malignant neoplasm o f prostate (HCC) (Primary Dx) Start: 07-18-2024 End: 07-18-2024 ambulatory ALEK M HOY Facility:[facility] Start: 07-15-2024 End: 07-15-2024 ambulatory ALEK M HOY Facility:[facility] Start: 07-14-2024 End: 07-14-2024 ambulatory ALEK M HOY Facility:[facility] Start: 07-13-2024 End: 07-13-2024 ambulatory ALEK M HOY Facility:[facility] Start: 07-12-2024 End: 07-12-2024 ambulatory ALEK M HOY Facility:[facility] Start: 07-11-2024 End: 07-11-2024 Patient encounter procedure Arnulfo Kamara MD Work Phone: Radiation Oncology Comment on above: Malignant neoplasm o f prostate (HCC) (Primary Dx) Start: 07-11-2024 End: 07-11-2024 ambulatory Arnulfo KAMARA Facility:[facility] Start: 07-08-2024 End: 07-08-2024 ambulatory ALEK M HOY Facility:[facility] Start: 07-07-2024 End: 07-07-2024 ambulatory ALEK M HOY Facility:[facility] Start: 07-06-2024 End: 07-06-2024 ambulatory ALEK M HOY Facility:[facility] Start: 07-05-2024 End: 07-05-2024 ambulatory ALEK M HOY Facility:[facility] Start: 07-04-2024 End: 07-04-2024 Patient encounter procedure Arnulfo Kamara MD Work Phone: Radiation Oncology Comment on above: Malignant neoplasm o f prostate (HCC) (Primary Dx) Start: 07-04-2024 End: 07-04-2024 ambulatory ALEK M HOY Facility:[facility] Start: 06-29-2024 End: 06-29-2024 ambulatory ALEK M HOY Facility:[facility] Start: 06-28-2024 End: 06-28-2024 ambulatory ALEK M HOY Facility:[facility] Start: 06-27-2024 End: 06-27-2024 Patient encounter procedure Arnulfo Kamara MD Work Phone: Radiation Oncology Comment on above: Malignant neoplasm o f prostate (HCC) (Primary Dx) Start: 06-27-2024 End: 06-27-2024 ambulatory Arnulfo KAMARA Facility:[facility] Start: 06-26-2024 End: 06-26-2024 ambulatory ALEK M HOY Facility:[facility] Start: 06-24-2024 End: 06-24-2024 ambulatory ALEK M HOY Facility:[facility] Start: 06-23-2024 End: 06-23-2024 Patient encounter procedure [facility] [facility] Work Phone: Radiation Oncology Comment on above: Prostate cancer (HCC ) Start: 06-23-2024 End: 06-23-2024 ambulatory Arnulfo JEWEL ENGTAMAR Facility:[facility] Start: 06-22-2024 End: 06-22-2024 ambulatory ALEK M Loyd Facility:[facility] Start: 06-21-2024 End: 06-21-2024 ambulatory [facility] Facility:[facility] Start: 06-20-2024 End: 06-20-2024 Patient encounter procedure Arnulfo Kamara MD Work Phone: Radiation Oncology Comment on above: Prostate cancer (HCC ) (Primary Dx) Start: 06-20-2024 End: 06-20-2024 ambulatory Arnulfo POLANCOTAMAR Facility:[facility] Start: 06-17-2024 End: 06-17-2024 ambulatory BURLINGTON Mendoza Loyd Facility:[facility] Start: 06-16-2024 End: 06-16-2024 ambulatory [facility] Facility:[facility] Start: 06-15-2024 End: 06-15-2024 Patient encounter procedure Arnulfo Kamara MD Work Phone: Radiation Oncology Comment on above: Prostate cancer (HCC ) (Primary Dx) Start: 06-15-2024 End: 06-15-2024 ambulatory Arnulfo KAMARA Facility:[facility] Start: 06-13-2024 End: 06-13-2024 Telephone encounter Arnulfo Kamara MD Work Phone: Radiation Oncology Comment on above: Orders Start: 06-07-2024 End: 06-09-2024 Telephone encounter Gloria Thacker [facility] Work Phone: [facility] Comment on above: Medication Update [...] 05-19-2024 End: 05-19-2024 Patient encounter procedure [facility] [facility] Work Phone: Radiation Oncology Comment on above: Malignant neoplasm o f prostate (HCC) (Primary Dx) History of prostate cancer (Primary Dx) Start: 05-19-2024 End: 05-20-2024 ambulatory Arnulfo KAMARA Facility:[facility] Start: 05-17-2024 End: 05-17-2024 Refill Katrina Warner APRN.CNP Work Phone: Urology Comment on above: Refill Request Start: 05-12-2024 End: 05-12-2024 ambulatory Arnulfo KAMARA Facility:[facility] Start: 05-12-2024 End: 05-12-2024 Subsequent hospital visit by physician Arrival Time Radiology Work Phone: Radiology Pet [facility] Comment on above: Rising PSA following treatment for malignant neoplasm of prostate [R97.21] Start: 05-03-2024 End: 05-03-2024 Orders Only Charlene Reynoso [facility] Work Phone: Hematology/Oncology Start: 04-28-2024 End: 05-17-2024 Telephone encounter Arnulfo Kamara MD Work Phone: Radiation Oncology Comment on above: Orders Nm Pet Request Start: 04-28-2024 End: 04-28-2024 ambulatory Divina Braswell LPN Radiation Oncology Comment on above: Patient Education Start: 04-28-2024 End: 04-28-2024 Patient encounter procedure G Jewel Kamara MD Work Phone: Radiation Oncology Comment on above: History of prostate cancer; Rising PSA following treatment for malignant neoplasm of prostate Start: 04-26-2024 End: 04-26-2024 ambulatory ALEK FATIMA Facility:[facility] Start: 04-20-2024 End: 04-20-2024 Office outpatient visit 15 minutes Viral Plata MD Work Phone: [facility] Comment on above: Actinic keratosis (P rimary Dx) Start: 04-20-2024 End: 04-20-2024 ambulatory VIRAL PLATA Not Available Start: 04-20-2024 End: 04-20-2024 Kurt Plata MD Work Phone: [facility] Start: 04-20-2024 End: 04-20-2024 Bamemelia flowsramone Plata MD Work Phone: [facility] Start: 04-07-2024 End: 04-07-2024 Follow-up [...] Start: 04-07-2024 End: 04-07-2024 ambulatory KATRINA WARNER Facility:[facility] Start: 03-31-2024 End: 03-31-2024 ambulatory ALEK FATIMA Facility:[facility] Start: 12-30-2023 End: 12-30-2023 ambulatory KATRINA WARNER Facility:[facility] Start: 12-30-2023 End: 12-30-2023 Follow-up encounter Katrina Warner APRN.[employer] Work Phone: Urology Comment on above: Encounter for follow -up surveillance of prostate cancer (Primary Dx); History of prostate cancer; PREETI (stress urinary incontinence), male; Erectile dysfunction following radical prostatectomy Start: 12-30-2023 End: 12-30-2023 Telemedicine consultation with patient Katrina Warner APRN.[employer] Work Phone: Urology Start: 12-29-2023 End: 12-29-2023 ambulatory [facility] Start: 12-25-2023 End: 12-25-2023 ambulatory ALEK FATIMA Facility:[facility] Start: 11-18-2023 End: 11-18-2023 ambulatory Katrina Warner APRN.ELECTR[employer]ER Work Phone: Urology Comment on above: Prostate cancer (HCC ) (Primary Dx); PREETI (stress urinary incontinence), male Start: 11-18-2023 End: 11-18-2023 Telemedicine consultation with patient Katrina Warner APRN.ELECTRIC TR[employer]ER Work Phone: [facility] Start: 11-16-2023 Telephone encounter [facility] & Comment on above: Returning Patient's Call Start: 11-12-2023 Telephone encounter [facility] & Comment on above: Returning Patient's Call Follow Up Phone Call Start: 11-10-2023 Telephone encounter [facility] & Start: 11-03-2023 End: 11-03-2023 Patient encounter procedure John RUIZ Work Phone: Urology Comment on above: Pre-op testing (Prim arnold Dx); Prostate cancer (HCC); Prostate disease Start: 11-03-2023 End: 11-03-2023 Patient encounter status John RUIZ Work Phone: [facility] Work Phone: Start: 11-03-2023 End: 11-03-2023 ambulatory [facility] Work Phone: Pre Anesthesia Comment on above: Pre-op evaluation (P rimary Dx); Malignant neoplasm of prostate (HCC); Cardiomyopathy in diseases classified elsewhere (HCC); Chronic ischemic heart disease; Chronic systolic (congestive) heart failure (HCC); Essential hypertension; Mixed hyperlipidemia; Paroxysmal atrial fibrillation (HCC) Start: 11-03-2023 End: 11-03-2023 Admission to [facility] Main 9 Work Phone: [facility] Start: 11-03-2023 End: 11-03-2023 Preprocedural examination done [facility] Main 9 Work Phone: [facility] Work Phone: Start: 11-03-2023 End: 11-03-2023 Subsequent hospital visit by physician Card Injection Molecular Imaging Comment on above: Malignant neoplasm o f prostate (HCC) [C61] Start: 10-08-2023 Orders Only Casi Rocha RN [employer] [facility] & Comment on above: Congestive heart emma lure, unspecified HF chronicity, unspecified heart failure type (HCC) (Primary Dx) Start: 10-07-2023 Orders Only Casi Rocha RN [facility] Comment on above: Malignant neoplasm o f prostate (HCC) (Primary Dx) Start: 10-02-2023 ambulatory Roosevelt Bah MD Work Phone: Urology Start: 10-02-2023 End: 10-02-2023 Patient encounter procedure Roosevelt Bah MD Work Phone: Urology Comment on above: Prostate cancer (HCC ) (Primary Dx) Start: 09-14-2023 End: 09-14-2023 ambulatory Chadd Weeks Facility:[facility] Start: 09-14-2023 End: 09-14-2023 ambulatory MD Alek Fatima Work Phone: [facility] Work Phone: Start: 09-14-2023 End: 09-14-2023 Patient encounter procedure MD Alek Fatima Work Phone: [facility]-Pet Scan Work Phone: Start: 09-02-2023 Telephone encounter Chadd Weeks MD Work [facility] Comment on above: Nm Pet Request Start: 08-31-2023 End: 09-01-2023 ambulatory Chadd WEEKS Facility:[facility] Start: 08-31-2023 End: 08-31-2023 Patient encounter procedure Chadd WEEKS [facility] Start: 08-25-2023 End: 08-26-2023 ambulatory Chadd WEEKS [facility] Work Phone: Start: 08-25-2023 End: 08-25-2023 Departed Referred MD Chadd Weeks Work Phone: [facility]-Lab [facility] [place] Work Phone: Start: 08-25-2023 End: 08-25-2023 Patient encounter procedure Chadd WEEKS [facility] Start: 08-10-2023 End: 08-11-2023 ambulatory Chadd WEEKS Facility:[facility] Start: 08-10-2023 End: 08-10-2023 Patient encounter procedure Chadd WEEKS [facility] Start: 04-15-2023 ambulatory Chadd WEEKS Facility :[facility] [place] Start: 05-26-2022 End: 05-27-[address] ALEK FATIMA Facility:[facility] Start: 07-03-2021 Encounter for preprocedural laboratory examination DR ALEK FATIMA [facility] Start: 07-01-2021 End: 07-30-[address] ALEK FATIMA Facility:[facility] Start: 06-26-2021 End: 06-27-2021 ambulatory ALEK FATIMA [place] Start: 06-26-2021 End: 06-27-2021 ambulatory CARYL ACEVEDO [place] Start: 06-26-2021 End: 06-26-2021 Evaluation and management of inpatient Nighat [facility]Arm [address] [place] [address] Start: 06-26-2021 End: 06-26-2021 Subsequent hospital visit by physician Nighat [address] [place] [address] Comment on above: Pain Start: 06-24-2021 End: 06-24-[address] ALEK FATIMA Facility:[facility] Start: 06-24-2021 End: 06-24-2021 Encounter for preprocedural laboratory examination DR ALEK FATIMA Facility:[facility] Start: 06-03-2021 End: 06-03-2021 Documentation procedure Yohan Johnson MD Work Phone: [facility] Virtual Comment on above: Pre-op Exam Start: 01-28-2021 End: 01-29-2021 ambulatory ADRIANA HUFF Facility:[facility] Procedures Date Procedure Procedure Detail Performing Clinician Start: 03-01-2025 CRYOTHERAPY SKIN LESION Viral Plata MD Work Phone: Start: 10-03-2024 Ecg routine ecg w/le ast 12 lds i&r only [facility] Provider Start: 06-23-2024 Blood count complete auto&auto difrntl wbc G Jewel Kamara MD Work Phone: Start: 11-03-2023 Urnls dip stick/tabl et reagent auto microscopy Bulk Order Provider Start: 11-03-2023 Myocardial spect mul tiple studies Roosevelt Bah MD Work Phone: Start: 10-02-2023 Urnls dip stick/tabl et rgnt auto w/o microscopy Bulk Order Provider Start: 09-14-2023 Positron emission tomography MD Alek Fatima Work Phone: Start: 08-25-2023 Transrectal biopsy o f prostate using ultrasound guidance Chadd WEEKS Start: 06-26-2021 XR FLUORO UP TO 1 HO UR (STATISTICS)(NO REPORT) Caryl Acevedo MD Work Phone: Cardiac catheter (ph ysical object) Chadd WEEKS Insertion of hip prosthesis Chadd WEEKS Structure of sinoatr ial node (body structure) Chadd WEEKS Plan of Treatment Date Care Activity Detail Author Start: 12-07-2029 Prostate specific an tigen measurement Prostate Cancer Screening Discussion [facility] Start: 08-24-2029 Prostate specific an tigen measurement Prostate Cancer Screening Discussion [facility] Start: 04-26-2029 Prostate specific an tigen measurement Prostate Cancer Screening Discussion [facility] Start: 03-31-2029 Prostate specific an tigen measurement Prostate Cancer Screening Discussion [facility] Start: 12-24-2028 Prostate specific an tigen measurement Prostate Cancer Screening Discussion [facility] Start: 10-04-2027 Diabetes Screening Diabetes Screenin g [facility] Start: 11-05-2026 Diabetes Screening Diabetes Screenin g [facility] Start: 11-02-2026 Diabetes Screening Diabetes Screenin g [facility] Start: 10-03-2025 BP Controlled (<130/80) BP Con trolled (<130/80) [facility] Start: 04-03-2025 Influenza vaccination C [facility] Start: 03-30-2025 End: 03-30-2025 Patient encounter procedure 03/30/2025 3:15 PM EDT Office Visit [facility] [address] [place] [address] Viral Plata MD [address] [place] [address] [facility] Start: 03-16-2025 End: 06-15-2025 Prostate specific Ag [Mass/volume] in Serum or Plasma PROSTATE-SPECIFIC ANTIGEN DIAGNOSTIC Lab Routine Malignant neoplasm of prostate (HCC) Expected: 03/16/2025, Expires: 06/15/2025 [facility] Work Phone: Comment on above: Expected: 03/16/2025 , Expires: 06/15/2025 Start: 03-16-2025 End: 03-16-2025 Patient encounter procedure Radiation Oncology Comment on above: 3 month follow up Eligard inj Start: 03-01-2025 End: 03-01-2025 Patient encounter procedure [facility] Comment on above: Arrived Start: 12-24-2024 End: 03-25-2025 Prostate specific Ag [Mass/volume] in Serum or Plasma PROSTATE-SPECIFIC ANTIGEN DIAGNOSTIC Lab Routine Malignant neoplasm of prostate (HCC) Expected: 12/24/2024, Expires: 03/25/2025 [facility] Work Phone: Comment on above: Expected: 12/24/2024 , Expires: 03/25/2025 Start: 12-14-2024 End: 12-14-2024 Patient encounter procedure Radiation Oncology Comment on above: follow up Start: 11-02-2024 End: 11-02-2024 Patient encounter procedure 11/02/2024 10:40 AM EDT Office Visit General Surgery [address] [place] [address] Porfirio Castaneda DO [address] [place] [address] 2 wk s/p Open left inguinal hernia repair w mesh General Surgery Comment on above: 2 wk s/p Open left i nguinal hernia repair w mesh Start: 10-17-2024 End: 10-17-2024 Admission to same day surgery center 10/17/2024 11:40 AM EDT - 10/17/2024 2:05 PM EDT Surgery [facility] [address] [place] [address] Porfirio Castaneda DO [address] [place] [address] HERNIORRHAPHY INGUINAL ELECTIVE ADULT REDUCIBLE [facility] Comment on above: HERNIORRHAPHY INGUIN AL ELECTIVE ADULT REDUCIBLE Start: 10-17-2024 End: 10-17-2024 Rpr 1st ingun hrna age 3 yrs/> reducible HERNIORRHAPHY INGUINAL ELECTIVE ADULT REDUCIBLE Non-recurrent unilateral inguinal hernia without obstruction or gangrene 10/17/2024 11:40 AM EDT AV OR Start: 10-17-2024 Subsequent hospital visit by physician 10/17/2024 11:40 AM EDT Hospital Encounter [facility] [address] [place] [address] Porfirio Castaneda DO [address] [place] [address] Non-recurrent unilateral inguinal hernia without obstruction or gangrene [K40.90] [facility] Comment on above: Non-recurrent unilat eral inguinal hernia without obstruction or gangrene [K40.90] Start: 10-03-2024 End: 01-02-2025 Basic metabolic 2000 panel - Serum or Plasma [facility] Comment on above: Expected: 10/03/2024 , Expires: 01/02/2025 Start: 10-03-2024 End: 01-02-2025 CBC panel - Blood by Automated count [facility] Comment on above: Expected: 10/03/2024 , Expires: 01/02/2025 Start: 09-15-2024 End: 09-15-2024 ambulatory 09/15/2024 7:30 AM [facility] [address] [place] [address] Katrina Warner APRN.[place] [phone] f/u virtual visit in 3 months. Urology Comment on above: f/u virtual visit in 3 months. Start: 09-13-2024 End: 09-13-2024 Patient encounter procedure 09/13/2024 9:30 AM EST Office Visit Radiation Oncology [address] [place] [address] [place] [address] Lupron Injection to be given in Radiation Radiation Oncology Comment on above: Lupron Injection to be given in Radiation Start: 09-07-2024 End: 09-07-2024 Patient encounter procedure 09/07/2024 9:00 AM EST Office Visit Radiation Oncology [address] [address] Lupron Injection to be given in Radiation Radiation Oncology Comment on above: Lupron Injection to be given in Radiation Start: 08-26-2024 End: 08-26-2024 Patient encounter procedure 08/26/2024 9:15 AM EST Office Visit Radiation Oncology [address] [place] [address] Arnulfo Kamara MD [address] [place] [address] Final Radiation follow up Radiation Oncology Comment on above: Final Radiation foll ow up Start: 08-22-2024 End: 11-21-2024 Prostate specific Ag [Mass/volume] in Serum or Plasma PROSTATE-SPECIFIC ANTIGEN DIAGNOSTIC Lab Routine Malignant neoplasm of prostate (HCC) Expected: 08/22/2024, Expires: 11/21/2024 [facility] Work Phone: Comment on above: Expected: 08/22/2024 , Expires: 11/21/2024 Start: 08-05-2024 End: 08-05-2024 Patient encounter procedure Radiation Oncology Comment on above: Prostate-Boost Prostate Bed-Boost Start: 08-04-2024 End: 08-04-2024 Patient encounter procedure Radiation Oncology Comment on above: Prostate-Boost Prostate Bed-Boost Start: 08-03-2024 Advance Directive Discussion Advance Directive Discussion [facility] Start: 08-02-2024 End: 08-02-2024 Patient encounter procedure [...] 07/29/2024 3:45 PM EST Appointment Radiation Oncology [address] [place] [address] Prostate-Boost Radiation Oncology Comment on above: Prostate-Boost Start: 07-29-2024 End: 07-29-2024 Patient encounter procedure 07/29/2024 7:45 AM EST Appointment Radiation Oncology [address] [place] [address] Prostate Bed-Boost Radiation Oncology Comment on above: [...] 3:45 PM EST Appointment Radiation Oncology [address] [facility] [place] [address] Prostate-Boost Radiation Oncology Comment on above: Prostate-Boost Start: 07-21-2024 End: 07-21-2024 Patient encounter procedure 07/21/2024 3:45 PM EST Appointment Radiation Oncology [address] [facility] [place] [address] Prostate-Boost Radiation Oncology Comment on above: Prostate-Boost Start: 07-21-2024 End: 10-20-2024 UA DIP, URINE (POC) UA DIP, URINE (POC) Lab Today Dysuria Expected: 07/21/2024, Expires: 10/20/2024 [facility] Work Phone: Comment on above: Expected: 07/21/2024 , Expires: 10/20/2024 Start: 07-20-2024 End: 07-20-2024 Patient encounter procedure 07/20/2024 3:45 PM EST Appointment Radiation Oncology [address] [facility] [address] Prostate-Boost Radiation Oncology Comment on above: Prostate-Boost Start: 07-19-2024 End: 07-19-2024 Patient encounter procedure 07/19/2024 3:45 PM EST Appointment Radiation Oncology [address] [facility] [place] [address] Prostate Radiation Oncology Comment on above: Prostate Start: 07-18-2024 End: 07-18-2024 Patient encounter procedure Radiation Oncology Comment on above: Prostate Location: [facility] Start: 07-15-2024 End: 07-15-2024 Patient encounter procedure 07/15/2024 3:45 PM EST Appointment Radiation Oncology [address] [place] [address] Prostate Radiation Oncology Comment on above: Prostate Start: 07-14-2024 End: 07-14-2024 Patient encounter procedure 07/14/2024 3:45 PM EST Appointment Radiation Oncology [address] [place] [address] Prostate Radiation Oncology Comment on above: Prostate Start: 07-13-2024 End: 07-13-2024 Patient encounter procedure 07/13/2024 3:45 PM EST Appointment Radiation Oncology [address] [place] [address] Prostate Radiation Oncology Comment on above: Prostate Start: 07-12-2024 End: 07-12-2024 Patient encounter procedure 07/12/2024 3:45 PM EST Appointment Radiation Oncology [address] [place] [address] Prostate Radiation Oncology Comment on above: Prostate Start: 07-11-2024 End: 07-11-2024 Patient encounter procedure Radiation Oncology Comment on above: Prostate Location: [facility] Start: 07-08-2024 End: 07-08-2024 Patient encounter procedure 07/08/2024 3:45 PM EST Appointment Radiation Oncology [address] [place] [address] Prostate Radiation Oncology Comment on above: Prostate Start: 07-07-2024 End: 07-07-2024 Patient encounter procedure 07/07/2024 3:45 PM EST Appointment Radiation Oncology [address] [place] [address] Prostate Radiation Oncology Comment on above: Prostate Start: 07-06-2024 End: 07-06-2024 Patient encounter procedure 07/06/2024 3:45 PM EST Appointment Radiation Oncology [address] [place] [address] Prostate Radiation Oncology Comment on above: Prostate Start: 07-05-2024 End: 07-05-2024 Patient encounter procedure 07/05/2024 3:45 PM EST Appointment Radiation Oncology [address] [place] [address] Prostate Radiation Oncology Comment on above: Prostate Start: 07-04-2024 End: 07-04-2024 Patient encounter procedure Radiation Oncology Comment on above: Prostate Location: [facility] Start: 06-29-2024 End: 06-29-2024 Patient encounter procedure 06/29/2024 2:00 PM EST Appointment Radiation Oncology [address] [place] [address] Prostate Radiation Oncology Comment on above: Prostate Start: 06-28-2024 End: 06-28-2024 Patient encounter procedure 06/28/2024 3:45 PM EST Appointment Radiation Oncology [address] [place] [address] Prostate Radiation Oncology Comment on above: Prostate Start: 06-27-2024 End: 06-27-2024 Patient encounter procedure Radiation Oncology Comment on above: Prostate Location: [facility] Start: 06-27-2024 Diabetes Screening Diabetes Screenin g [facility] Start: 06-26-2024 End: 06-26-2024 Patient encounter procedure 06/26/2024 8:15 AM EST Appointment Radiation Oncology [address] [place] [address] Prostate Radiation Oncology Comment on above: Prostate Start: 06-24-2024 End: 06-24-2024 Patient encounter procedure 06/24/2024 3:45 PM EST Appointment Radiation Oncology [address] [place] [address] Prostate Radiation Oncology Comment on above: Prostate Start: 06-23-2024 End: 06-23-2024 Patient encounter procedure Radiation Oncology Comment on above: Prostate Rad lab Start: 06-23-2024 End: 09-22-2024 CBC W Auto Differential panel - Blood COMPLETE BLOOD COUNT AND DIFFERENTIAL Lab Routine Prostate cancer (HCC) Expected: 06/23/2024, Expires: 09/22/2024 [facility] Work Phone: Comment on above: Expected: 06/23/2024 , Expires: 09/22/2024 Start: 06-22-2024 End: 06-22-2024 Patient encounter procedure 06/22/2024 3:45 PM EST Appointment Radiation Oncology [address] [address] Prostate Radiation Oncology Comment on above: Prostate Start: 06-21-2024 End: 06-21-2024 Patient encounter procedure 06/21/2024 3:45 PM EST Appointment Radiation Oncology [address] [address] Prostate Radiation Oncology Comment on above: Prostate Start: 06-20-2024 End: 06-20-2024 Patient encounter procedure Radiation Oncology Comment on above: Prostate Location: [facility] Start: 06-17-2024 End: 06-17-2024 Patient encounter procedure 06/17/2024 3:45 PM EST Appointment Radiation Oncology [address] [address] Prostate Radiation Oncology Comment on above: Prostate Start: 06-16-2024 End: 06-16-2024 Patient encounter procedure 06/16/2024 3:45 PM EST Appointment Radiation Oncology [address] [place] [address] [place] [address] Prostate Radiation Oncology Comment on above: Prostate [...] prostate (HCC) Expected: 05/20/2024 (Approximate), Expires: 08/19/2024 [facility] Work Phone: Comment on above: Expected: 05/20/2024 (Approximate), Expires: 08/19/2024 Start: 05-19-2024 End: 05-19-2024 Patient encounter procedure 05/19/2024 11:30 AM EDT Office Visit Radiation Oncology [address] [facility] [place] [address] Arnulfo Kamara MD [address] [place] [address] [place] [address] SIM treating pelvis [facility] Oncology Comment on above: SIM treating pelvis [facility] Start: 05-19-2024 End: 05-19-2024 Patient encounter procedure Radiation Oncology Comment on above: Follow up after PET Sim Consent and Elig alyssa Injection Start: 05-12-2024 End: 05-12-2024 Patient encounter procedure 05/12/2024 1:30 PM EDT Appointment Radiology Pet CT [address] [place] [address] [place] [address] [address] Pet CT Comment on above: PSMA PET Start: 05-07-2024 End: 08-06-2024 Prostate specific Ag [Mass/volume] in Serum or Plasma PROSTATE-SPECIFIC ANTIGEN DIAGNOSTIC Lab Routine History of prostate cancer Rising PSA following treatment for malignant neoplasm of prostate Expected: 05/07/2024 (Approximate), Expires: 08/06/2024 [facility] Work Phone: Comment on above: Expected: 05/07/2024 (Approximate), Expires: 08/06/2024 Start: 04-20-2024 End: 04-20-2024 Patient encounter procedure 04/20/2024 4:05 PM EDT Office Visit [facility] [address] [place] [address] Viral Plata MD [address] [place] [address] Arrived [facility] Comment on above: Arrived Start: 04-03-2024 Covid-19 Vaccine ( season) Covid-19 Vaccine ( season) [facility] Start: 04-03-2024 Covid-19 Vaccine ( season) Covid-19 Vaccine ( season) [facility] Start: 04-03-2024 Influenza vaccination C [facility] Start: 03-31-2024 End: 06-30-2024 Prostate specific Ag [Mass/volume] in Serum or Plasma PROSTATE-SPECIFIC ANTIGEN DIAGNOSTIC Lab Routine History of prostate cancer Expected: 03/31/2024 (Approximate), Expires: 06/30/2024 [facility] Work Phone: Comment on above: Expected: 03/31/2024 (Approximate), Expires: 06/30/2024 Start: 01-01-2024 End: 04-01-2024 Prostate specific Ag [Mass/volume] in Serum or Plasma PROSTATE-SPECIFIC ANTIGEN DIAGNOSTIC Lab Routine Prostate cancer (HCC) Expected: 01/01/2024 (Approximate), Expires: 04/01/2024 [facility] Work Phone: Comment on above: Expected: 01/01/2024 (Approximate), Expires: 04/01/2024 Start: 11-23-2023 Advance Directive Discussion Advance Directive Discussion [facility] Start: 11-23-2023 Pneumococcal Vaccine : 65+ Years (1 of 1 - PCV) Pneumococcal Vaccine: 65+ Years (1 of 1 - PCV) [facility] Start: 08-03-2023 Behavioral Health Screening Behavioral Health Screening [facility] Start: 08-03-2023 Depression Assessment Depression Ass essment [facility] Start: 04-03-2023 Covid-19 Vaccine ( season) Covid-19 Vaccine ( season) [facility] Start: 04-03-2023 Influenza vaccination Influenza Vacc ine (#1) [facility] Start: 06-27-2022 Hypertension/CHF/CAD Annual BMP Blood Test Hypertension/CHF/CAD Annual BMP Blood Test [facility] Start: 06-03-2022 Hypertension/CHF/CAD Annual BMP Blood Test Hypertension/CHF/CAD Annual BMP Blood Test [facility] Start: 06-26-2021 End: 06-26-2021 Admission to same day surgery center 06/26/2021 Surgery Operating Room Caryl Acevedo MD [address] [place] [address] ARTHROPLASTY HIP TOTAL RIGHT ANTERIOR [77272 (CPT )] Sue Burr [place] Comment on above: ARTHROPLASTY HIP TOT AL RIGHT ANTERIOR [65116 (CPT )] Start: 06-26-2021 End: 06-26-2021 Arthrp acetblr/prox fem prostc agrft/algrft ARTHROPLASTY HIP TOTAL ANTERIOR Unilateral primary osteoarthritis, right hip 06/26/2021 6:30 AM [facility] Start: 06-26-2021 Subsequent hospital visit by physician 06/26/2021 Hospital Encounter Operating Room Sue Cartwright Start: 05-03-2021 COVID-19 Vaccine (3 - Booster for Pfizer series) COVID-19 Vaccine (3 - Booster for Pfizer series) [facility] Start: 04-27-2021 Adolescent depressio n screening assessment Depression Screening [facility] Start: 04-27-2021 Depression Screening Depression Scre ening [facility] Start: 04-27-2021 Hepatitis C screening Hepatitis C Sc reening [facility] Start: 04-27-2021 HIV screening HIV Screening [facility] Start: 04-27-2021 Lipid panel Cholesterol Sc reening (Lipid Panel) [facility] Start: 04-27-2021 Screening for malign ant neoplasm of colon Colorectal Cancer Screening: Colonoscopy [facility] Start: 04-27-2021 Social Influencers o f Health Screening Social Influencers of Health Screening [facility] Start: 04-03-2021 Influenza vaccination Influenza Vacc ine (#1) [facility] Start: 2018 RSV Vaccine (1 - 1-d ose 60+ series) RSV Vaccine (1 - 1-dose 60+ series) [facility] Start: 2018 RSV Vaccine (1 - Ris k 60-74 years 1-dose series) RSV Vaccine (1 - Risk 60-74 years 1-dose series) [facility] Start: 2013 Prostate specific an tigen measurement Prostate Cancer Screening Discussion [facility] Start: 2008 Pneumococcal Vaccine : 65+ Years (1 of 1 - PCV) Pneumococcal Vaccine: 65+ Years (1 of 1 - PCV) [facility] Start: 2008 Shingrix Vaccine (1 of 2) Sky grix Vaccine (1 of 2) [facility] Start: 2008 Zoster Vaccines (1 of 2) Zoste r Vaccines (1 of 2) [facility] Start: 11-23-2003 Screening for malign ant neoplasm of colon [facility] Start: 1993 Lipid panel Lipid Screening [facility] Start: 1977 DTaP,Tdap,and Td Vac cines (1 - Tdap) DTaP,Tdap,and Td Vaccines (1 - Tdap) [facility] Start: 1977 Pneumococcal Vaccine : 50+ (1 of 2 - PCV) Pneumococcal Vaccine: 50+ (1 of 2 - PCV) [facility] Start: 1977 Urine microalbumin profile DTa P,Tdap,Td Vaccine (1 - Tdap) [facility] Start: 1976 Annual PCP Team [employer] lianne Disease Visit Annual PCP Team Chronic Disease Visit [facility] Start: 1976 Anxiety Screening Anxiety Screening [facility] Start: 1976 BP Controlled (<130/80) BP Con trolled (<130/80) [facility] Start: 1976 Depression Screening Depression Scre ening [facility] Start: 1976 Hepatitis B surface antibody level LDL Cholesterol [facility] Start: 1976 Hepatitis C screening Hepatitis C Sc reening [facility] Start: 1976 HIV screening HIV Screening [facility] Start: [address] [facility] Start: 1970 COVID-19 Vaccine (1) COVID-19 Vaccin e (1) [facility] Start: 1964 Pneumococcal vaccination Pneum ococcal Vaccine (1 of 2 - PCV) [facility] Start: 1964 Pneumococcal Vaccine : 65+ (1 of 2 - PCV) Pneumococcal Vaccine: 65+ (1 of 2 - PCV) [facility] Start: 1964 Pneumococcal Vaccine : Pediatrics (0 to 5 Years) and At-Risk Patients (6 to 64 Years) (1 of 2 - PPSV23) Pneumococcal Vaccine: Pediatrics (0 to 5 Years) and At-Risk Patients (6 to 64 Years) (1 of 2 - PPSV23) [facility] Start: 1958 Screening for malign ant neoplasm of colon [facility] Bacteria identified in Urine by Culture URINE CULTURE Microbiology Routine Prostate cancer (HCC) Prostate disease Ordered: 11/03/2023 [facility] Work Phone: Comment on above: Ordered: 11/03/2023 CT Guidance for radi ation treatment of Unspecified body region CT SIM PLANNING RADIATION ONCOLOGY Radiology Routine History of prostate cancer Ordered: 05/19/2024 [facility] Work Phone: Comment on above: Ordered: 05/19/2024 CT Guidance for radi ation treatment of Unspecified body region CT SIM PLANNING RADIATION ONCOLOGY Radiology Routine Prostate cancer (HCC) Ordered: 06/06/2024 [facility] Work Phone: Comment on above: Ordered: 06/06/2024 ECG COMPLETE [facility] Work Phone: Comment on above: Ordered: 10/03/2024 End: 10-07-2024 Echocardiography ECHO Cardiology Routine Congestive heart failure, unspecified HF chronicity, unspecified heart failure type (HCC) 1 Occurrences starting 10/08/2023 until 10/07/2024 [facility] Work Phone: Comment on above: 1 Occurrences starti ng 10/08/2023 until 10/07/2024 End: 06-18-2025 MR Cervical spine WO and W contrast IV MRI CERVICAL SPINE WO/W IVCON Radiology Routine History of prostate cancer 1 Occurrences starting 05/19/2024 until 06/18/2025 [facility] Comment on above: 1 Occurrences starti ng 05/19/2024 until 06/18/2025 End: 11-05-2024 NM Heart Perfusion W stress and W radionuclide IV NM CARDIAC PERF STRESS/PHARM Radiology Routine Malignant neoplasm of prostate (HCC) 1 Occurrences starting 10/07/2023 until 11/05/2024 [facility] Work Phone: Comment on above: 1 Occurrences starti ng 10/07/2023 until 11/05/2024 End: 05-28-2025 PET+CT Guidance for localization of tumor of Whole body-- W 18F-FDG IV NM PET/CT PROSTATE WHOLE BODY IMAGING Radiology Routine Rising PSA following treatment for malignant neoplasm of prostate 1 Occurrences starting 04/28/2024 until 05/28/2025 [facility] Work Phone: Comment on above: 1 Occurrences starti ng 04/28/2024 until 05/28/2025 PET+CT Guidance for localization of tumor of Whole body-- W 18F-FDG IV NM PET/CT PROSTATE WHOLE BODY IMAGING Radiology Routine Rising PSA following treatment for malignant neoplasm of prostate 05/12/2024 2:55 PM EDT [facility] Work Phone: End: 11-20-2025 XR Facial bones 3 Views XR FACIAL BONES 3V AP/LAT/WEEKS Radiology Routine Prostate cancer (HCC) 1 Occurrences starting 05/23/2024 until 06/22/2025 [facility] Work Phone: Comment on above: 1 Occurrences starti ng 05/23/2024 until 06/22/2025 [facility] Immunizations Immunization Date Immunization Notes Care Provider Fa cility 11-01-2020 SARS-CoV-2 (COVID-19 ) mRNA BNT-162b2 vax Chadd [facility] 10-11-2020 SARS-CoV-2 (COVID-19 ) mRNA BNT-162b2 vax Chadd [employer] [facility] NEGATED: Highlighted row has not occurred!08-25-2023 influenza virus vaccine, unspecified formulation Chadd WEEKS [facility] Payers Date Payer Category Payer Private Health Insurance [id number] 2023 Medicare [id number] 2023 Medicare [id number] 2023 Self-pay [id number] 2021 Unknown [id number] 2021 Unknown [id number] 2018 Unknown [employer] [id number] 2018-Present [address] [place] [address] [id number] 1959 Self-pay [id number] 1959 Unknown [id number] 1958 Unknown [id number] 47 1958 Unknown [id number] 143 1958 Unknown [id number].1 143 1958 Unknown [id number] 2.16.840.1.607674.3.579.2.5 93 1958 Unknown [id number] 2.16.840.1.531613.3.579.2.5 93 1958 Unknown [id number] 2.16.840.1.484953.3.579.2.5 93 1958 Unknown [id number] 2.16.840.1.141820.3.579.2.7 27 1958 Unknown [id number] 2.16.840.1.832293.3.579.2.7 27 1958 Unknown [id number] 2.16.840.1.660710.3.579.2.7 27 1958 Unknown [id number] 2.16.840.1.909839.3.579.2.7 27 1958 Unknown [id number] 2.16.840.1.882584.3.579.2.1 259 1958 Unknown [id number] 2.16.840.1.756620.3.579.2.1 259 Unknown [id number] [id number] 31 Unknown [id number] 31 Social History Date Type Detail Facility Start: 03-01-2024 Tobacco smoking stat us NHIS Unknown if ever smoked [facility] Work Phone: Start: 1960 Sex Assigned At Not on file T [facility] Start: 06-25-2021 End: 11-03-2023 Tobacco smoking status NHIS Never smoker [facility] Start: 06-25-2021 End: 11-02-2024 Alcohol intake Lifetime non-drinker (finding) [facility] Start: 06-25-2021 History SDOH Alcohol Frequency 1 [facility] Exposure to SARS-CoV -2 (event) Not sure [facility] Tobacco smoking status Never [facility] Start: 11-03-2023 End: 04-28-2024 Sex Assigned At Male [facility] Start: 1960 Sex Assigned At Male [facility] Start: 11-03-2023 Tobacco use and exposure Smokeless tobacco non-user [facility] Start: 11-03-2023 End: 04-28-[address] [facility] Medical Equipment Procedure Code Equipment Code Equipment Origin al Text Equipment Identifier Dates Hip G7 Pps Ltd A cet Shell 56f - Sna - [id number] 21)MARIA DE JESUS [id number] FDA Start: 06-26-2021 Liner G7 Neutral Ve 36mm F - Sna - [id number] [id number])MARIA DE JESUS [id number] FDA Start: 06-26-2021 Complete Ho Collarless Sz 7.5 - Sna - [id number], [id number] FDA Start: 06-26-2021 Hip Hd Blx D Fem 36mm +7mm - Sna - [id number]/[id number], [id number] FDA Start: 06-26-2021 Mesh Progrip Rectangle Polyester 15x9cm Surgical Self Nail Making Machine Tender Hernia - [id number] Start: 10-17-2024 Functional Status Date Assessment Result Facility 11-06-2023 Are you deaf, or do you have serious difficulty hearing No 11/06/2023 10:53 AM Mckenna Miller RN No [facility] 11-06-2023 Are you blind, or do you have serious difficulty seeing, even when wearing glasses No 11/06/2023 10:53 AM Mckenna Miller RN No [facility] 11-06-2023 Do you have serious difficulty walking or climbing stairs No 11/06/2023 10:53 AM Mckenna Miller RN No [facility] 11-06-2023 Do you have difficul ty dressing or bathing No 11/06/2023 10:53 AM Mckenna Miller RN No [facility] 11-06-2023 Because of a physica l, mental, or emotional condition, do you have difficulty doing errands alone such as visiting a physician's office or shopping No 11/06/2023 10:53 AM Mckenna Miller RN No [facility] 08-31-2023 Functional Status N/A [facility] 08-25-2023 Functional Status N/A [facility] 08-10-2023 Functional Status N/A [facility] Mental Status Date Assessment Result Facility 11-06-2023 Because of a physica l, mental, or emotional condition, do you have serious difficulty concentrating, remembering, or making decisions No 11/06/2023 10:53 AM Mckenna Miller RN No [facility] Clinical Notes 06-03-2021 to 03-01-2025 Viral Plata MD - 03/01/2025 4:00 PM Roxy Johnston RN - 12/14/2024 9:15 AM Arnulfo Nicholson MD - 12/14/2024 9:08 AM Porfirio Ward DO - 11/02/2024 11:44 AM EDTPatient Instructions Note Date & Type Note Facility 03-01-2025 History of Present illness Narrative Skin Check Location: Patient requests a skin examination from the waist up Dermatologic history: history of Actinic Keratosis Last visit: 1 year ago Established patient Lesions: Location: Buttock Duration: 6 months Quality: denies pain, denies itch, denies bleeding Modifying factors: aggravated by picking Associated symptoms: non-healing Treatments: none All pertinent medical history, medications, and allergies were reviewed. General Exam: alert, oriented to person, place, and time, normal affect, well appearing Unaccompanied A complete skin exam was offered, pt declined. Areas not examined despite medical recommendation: From the waist down Scalp, Examined Head, Face Examined Neck Examined Chest Examined Back Examined Abdomen Examined Right arm Examined Left arm Examined Hands Examined Digits,nails: Examined Lymphatics: Not examined Skin Exam 1. SKIN TAG Left Upper Back Fleshy, skin-colored sessile and pedunculated papules. The patient was informed that skin tags are benign growths usually found around the neck or in the axillae. No treatment is necessary, but at times they can get caught on jewelry or clothing or become inflamed. Skin tags can be removed with scissors or liquid nitrogen. 2. MELANOCYTIC NEVUS OF TRUNK Torso - Posterior (Back) Scattered benign appearing, regular brown to light brown melanocytic papules and macules with similar morphology Counseled regarding these benign growths. Rarely, a nevus can develop into malignant melanoma, so any changing nevi should be promptly re-evaluated. 3. SEBORRHEIC KERATOSIS (4) Chest (Upper Torso, Anterior), Left Arm, Right Arm, Torso - Posterior (Back) Stuck on verrucous, grimes-brown papules and plaques. Patient was counseled regarding these benign growths. Removal is normally not necessary, but they may be removed if they are symptomatic or for cosmetic reasons. 4. LENTIGINES Generalized Scattered grimes macules in sun-exposed areas. The patient was informed that lentigines are benign pigmented lesions that occur on sun-exposed and sun-damaged skin. No treatment is necessary. Recommended regular use of broad spectrum sunscreen SPF 30 or higher 5. ACTINIC KERATOSIS (9) Left Ear, Left Eyebrow, Left Malar Cheek, Left Zygomatic Area, Right Ear (2), Right Malar Cheek (2), Right Zygomatic Area Erythematous scaly papules Patient was counseled regarding these sun-induced growths that can develop into squamous cell carcinoma if left untreated. Discussed treatment with cryotherapy. It was emphasized that any treated lesions that fail to resolve should be re-evaluated. Cryotherapy performed today; see procedure note Diagnosis: Actinic keratosis Indication: Precancerous Location: see skin exam Consent: Verbal consent was obtained and risks were discussed, including, but not limited to risks of scarring, darker or maintenance representative pigmentary changes, recurrence, incomplete removal and infection. Method: Liquid nitrogen was used to treat the lesion(s) with two 5-10 second freeze-thaw cycles. Eyes were shielded using cotton pad during procedure Number of lesions treated: 9 Post-procedure instructions: Instructions were given orally and in writing. The office will be contacted if the lesion fails to resolve despite treatment, or if a side effect develops such as abnormal crusting, scabbing, redness or tenderness Cryotherapy, skin lesion - Left Ear, Left Eyebrow, Left Malar Cheek, Left Zygomatic Area, Right Ear (2), Right Malar Cheek (2), Right Zygomatic Area Related Medications fluorouracil (Efudex) 5 % cream Apply to directed areas on the temples, forehead, and nose twice a day x 14 days. Dispense 30 day supply but only use for 14 days. 6. TINEA CORPORIS Right Buttock Scaly annular plaques Start Terbinafine cream twice daily x 3 weeks, patient to treat feet as well. Follow up in 3 weeks. Related Medications terbinafine (LamISIL) 1 % cream Apply topically in the morning and before bedtime. Next Visit: 3-4 week follow up documented in this encounter [facility] 12-14-2024 Note HNO ID: [id number] Author: ROXY ARMSTRONG RN Service: ? Author Type: Registered Nurse Type: Progress Notes Filed: 12/16/2024 10:31 Note Text: BASIM Armstrong RN [facility] 12-14-2024 History of Present illness Narrative AUA 4 Roxy Weyer, RN Radiation Oncology - Follow Up Note PATIENT NAME: Sukhdeep Gamino PATIENT DIAGNOSIS: Prostate adenocarcinoma, initial PSA 7.9, biopsy Christine score 4 + 5 = 9 (grade group 5), clinical stage T2c, N0, M0, status post robotic radical prostatectomy and bilateral pelvic lymph node dissection for 11/05/2023, [place] 8 (4+4) pT3a pN0, with detectable and rising post prostatectomy PSA, PSA 04/26/2024 0.18. RADIATION SUMMARY: DATES OF TREATMENT: 06/15/2024-08/05/2024 AREA TREATED: Pelvis and Prostate Bed DELIVERED DOSE: Area: Pelvis and Prostate Bed 4600 cGy in 23 fractions, 3 Arcs, IMRT, 10 MV with daily CBCT DELIVERED DOSE: Area: Prostate Bed Boost 2400 cGy in 12 fractions, 2 Arcs, IMRT, 10 MV with daily CBCT TOTAL: 7000 cGy in 35 fractions ELAPSED TIME: 51 days. INTERVAL HISTORY: The patient presents for routine follow-up after recent completion of radiation. Doing well. Denies significant issues. PSA HISTORY: PSA (ng/mL) Date Value 12/07/2024 <0.02 08/24/2024 <0.02 04/26/2024 0.18 03/31/2024 0.12 ALLERGIES Allergen Reactions Ciprofloxacin Hives Tadalafil (CIALIS) 5 mg tablet Take 1 tablet by mouth once daily. pravastatin (PRAVACHOL) 40 mg tablet Take 40 [...] fluticasone (FLONASE) 50 mcg/actuation nasal spray 1 Grover. relugolix (ORGOVYX) 120 mg tablet Take 1 tablet by mouth once daily. REVIEW OF SYSTEMS: D/N = 4-01/01 Hematuria: none Dysuria: none Incontinence: none Urgency: none Medications to aid urination: n Bowel movement frequency: 1/day Bowel movement quality: normal ADT: Eligard 22.5 06/06/2024) 09/13/24 45 mg PHYSICAL EXAM: There were no vitals taken for this visit. KPS: 100 General Appearance: Alert and oriented. No acute distress. ASSESSMENT/PLAN: Prostate adenocarcinoma, initial PSA 7.9, biopsy [place] Gabriel score 4 + 5 = 9 (grade group 5), clinical stage T2c, N0, M0, status post robotic radical prostatectomy and bilateral pelvic lymph node dissection for 11/05/2023, Christine 8 (4+4) pT3a pN0, with detectable and rising post prostatectomy PSA, PSA 04/26/2024 0.18. Overall doing well with undetectable PSA. No significant posttreatment problems. Recommend follow-up in 3 to 4 months with consideration of continued ADT for a 12-month total duration. Signed by: Arnulfo Kamara MD cc: Alek Donaldson Kushal [address] [place] [address] documented in this encounter [facility] 12-14-2024 Note HNO ID: [id number] Author: Arnulfo KAMARA MD Service: ? Author Type: Physician Type: Progress Notes Filed: 12/16/2024 10:31 Note Text: Radiation Oncology - Follow Up Note PATIENT NAME: Sukhdeep Gamino PATIENT DIAGNOSIS: Prostate adenocarcinoma, initial PSA 7.9, biopsy Christine score 4 + 5 = 9 (grade group 5), clinical stage T2c, N0, M0, status post robotic radical prostatectomy and bilateral pelvic lymph node dissection for 11/05/2023, Christine 8 (4+4) pT3a pN0, with detectable and rising post prostatectomy PSA, PSA 04/26/2024 0.18. RADIATION SUMMARY: DATES OF TREATMENT: 06/15/2024-08/05/2024 AREA TREATED: Pelvis and Prostate Bed DELIVERED DOSE: Area: Pelvis and Prostate Bed 4600 cGy in 23 fractions, 3 Arcs, IMRT, 10 MV with daily CBCT DELIVERED DOSE: Area: Prostate Bed Boost 2400 cGy in 12 fractions, 2 Arcs, IMRT, 10 MV with daily CBCT TOTAL: 7000 cGy in 35 fractions ELAPSED TIME: 51 days. INTERVAL HISTORY: The patient presents for routine follow-up after recent completion of radiation. Doing well. Denies significant issues. PSA HISTORY: PSA (ng/mL) Date Value 12/07/2024 <0.02 08/24/2024 <0.02 04/26/2024 0.18 03/31/2024 0.12 ALLERGIES Allergen Reactions Ciprofloxacin Hives Tadalafil (CIALIS) 5 mg tablet Take 1 tablet by mouth once daily. pravastatin (PRAVACHOL) 40 mg tablet Take 40 [...] fluticasone (FLONASE) 50 mcg/actuation nasal spray 1 Grover. relugolix (ORGOVYX) 120 mg tablet Take 1 tablet by mouth once daily. REVIEW OF SYSTEMS: D/N = 4-01/01 Hematuria: none Dysuria: none Incontinence: none Urgency: none Medications to aid urination: n Bowel movement frequency: 1/day Bowel movement quality: normal ADT: Eligard 22.5 06/06/2024) 09/13/24 45 mg PHYSICAL EXAM: There were no vitals taken for this visit. KPS: 100 General Appearance: Alert and oriented. No acute distress. ASSESSMENT/PLAN: Prostate adenocarcinoma, initial PSA 7.9, biopsy Christine score 4 + 5 = 9 (grade group 5), clinical stage T2c, N0, M0, status post robotic radical prostatectomy and bilateral pelvic lymph node dissection for 11/05/2023, Christine 8 (4+4) pT3a pN0, with detectable and rising post prostatectomy PSA, PSA 04/26/2024 0.18. Overall doing well with undetectable PSA. No significant posttreatment problems. Recommend follow-up in 3 to 4 months with consideration of continued ADT for a 12-month total duration. Signed by: Arnulfo Kamara MD cc: Alek Fatima [address] [place] [address] [facility] 11-14-2024 Telephone encounter Note Requested Prescriptions Pending Prescriptions Disp Refills Tadalafil (CIALIS) 5 mg tablet 90 tablet 1 Sig: Take 1 tablet by mouth once daily. [facility] 11-14-2024 Miscellaneous Notes Requested Prescriptions Pending Prescriptions Disp Refills Tadalafil (CIALIS) 5 mg tablet 90 tablet 1 Sig: Take 1 tablet by mouth once daily. documented in this encounter [facility] 11-02-2024 Note HNO ID: [id number] Author: PORFIRIO CASTANEDA, DO Service: ? Author Type: Physician Type: Progress Notes Filed: 11/02/2024 11:46 Note Text: SERVICE DATE: 11/02/2024 SERVICE TIME: 11:00 AM SERVICE: General Surgery SUBJECTIVES: Min pain, mild swelling, no drainage from wound. Admits to leakage from penis, probably related to prostate surgery. OBJECTIVES: There were no vitals taken for this visit. , There is no height or weight on file to calculate BMI. GENERAL: Healthy, alert, no distress, cooperative ABDOMEN: Soft, nontender; expected soft tissue around incision in the left groin without drainage. Mild induration of the wound. WOUND: Clean, dry and intact SENSITIVE EXAMINATION CONSENT: The sensitive examination was discussed with the Patient or Patient's Authorized Automotive Painter Helper. As applicable, any other physician, advance practice provider, medical student, or other health professional student that will be observing or involved in the sensitive examination for educational or training purposes was discussed with the Patient or Authorized Automotive Painter Helper. The Patient or Authorized Automotive Painter Helper has agreed to proceed with the sensitive examination. (Sensitive examination includes inspection and/or palpation of the breasts, pelvis, prostate and anorectal regions) Assessment ASSESSMENT: S/p open LIH repair with mesh POD#16 Satisfactory recovery and wound healing PLAN: Continue local and current wound care Diet and activity as tolerated RTC as needed SIGNATURE: Brando Castaneda DO PATIENT NAME: Sukhdeep Gamino DATE: November 02, 2024 TIME: 11:44 AM PAGER: [facility] 11-02-2024 History of Present illness Narrative SERVICE DATE: 11/02/2024 SERVICE TIME: 11:00 AM SERVICE: General Surgery SUBJECTIVES: Min pain, mild swelling, no drainage from wound. Admits to leakage from penis, probably related to prostate surgery. OBJECTIVES: There were no vitals taken for this visit. , There is no height or weight on file to calculate BMI. GENERAL: Healthy, alert, no distress, cooperative ABDOMEN: Soft, nontender; expected soft tissue around incision in the left groin without drainage. Mild induration of the wound. WOUND: Clean, dry and intact SENSITIVE EXAMINATION CONSENT: The sensitive examination was discussed with the Patient or Patient's Authorized Automotive Painter Helper. As applicable, any other physician, advance practice provider, medical student, or other health professional student that will be observing or involved in the sensitive examination for educational or training purposes was discussed with the Patient or Authorized Automotive Painter Helper. The Patient or Authorized Automotive Painter Helper has agreed to proceed with the sensitive examination. (Sensitive examination includes inspection and/or palpation of the breasts, pelvis, prostate and anorectal regions) Assessment ASSESSMENT: S/p open LIH repair with mesh POD#16 Satisfactory recovery and wound healing PLAN: Continue local and current wound care Diet and activity as tolerated RTC as needed SIGNATURE: Brando Castaneda DO PATIENT NAME: Sukhdeep Gamino DATE: November 02, 2024 TIME: 11:44 AM PAGER: documented in this encounter [facility] 10-03-2024 Instructions Haily Cline APRN.ELECTRIC TRUCKER - 10/03/2024 3:20 PM EST PATIENT PREOPERATIVE INSTRUCTIONS Porfirio Castaneda DO has scheduled you for your procedure at this surgery center: [facility]: [phone] --[address] [place] [address]. Please enter through the entrance closest to [facility]. Please read below carefully for your personalized instructions. Dietary Restrictions: - No solid food after midnight. - You may have 12 ounces of clear liquids (water, clear juices such as apple juice or gatorade, carbonated beverages, clear tea, black coffee -NO CREAM OR SUGAR ) until 2 hours before scheduled arrival at facility. Medications: Unless instructed differently below, stay on all of your prescription medications until your surgery. Approved medications to take the morning of surgery with a sip of water: carvedilol (COREG) , lisinopril (ZESTRIL, PRINIVIL) If you take any medications for erectile dysfunction-Cialis (Tadalafil), Levitra, Staxyn (Vardenafil) Viagra (Sildenenafil please do not take these for 48 hours before surgery. If you start any new medications after today's visit, please contact the surgeon's office. Blood Thinning Medications: - Stop Coumadin 5 days before surgery or as directed by physician. - Do NOT stop aspirin or other anticoagulants without consulting with your knockup worker or prescribing physician. - Stop NSAIDS (Ibuprofen, Advil, Aleve, Motrin, Celebrex, Mobic, etc.) 7 days before surgery, as directed by your surgeon. - Stop Aspirin 7 days before surgery, as directed by your surgeon. - Stop ALL herbal and dietary supplements 7 days before surgery. - You may take Tylenol (Acetaminophen) or any of your pain medications that do not contain aspirin or NSAIDS as needed. Important Reminders: - Candy, mints, and tobacco [...] money at home or with family members. For Outpatient Procedures: - YOU MUST HAVE A RESPONSIBLE DREDGE LEVER OPERATOR TAKE YOU HOME. A ROOFING APPRENTICE OR HEAD FIELD HOCKEY COACH CANNOT BE MADE A RESPONSIBLE DREDGE LEVER OPERATOR. - We recommend that a responsible person stays with you overnight to take care of you. - You cannot stay in a hotel alone after outpatient surgery. You will not be permitted to have your surgery, if you do not have someone to take care of you. Arrival Time for Surgery: - The Surgery Center or hospital where you are having surgery will call the afternoon before surgery (or Thursday for Thursday surgery) with a scheduled arrival time. - If you have not heard by 4 pm, please contact the surgery center above. Please be aware that emergency situations arise, which may delay or change your surgical time. If this happens, we will notify you as soon as possible and regret any inconvenience. If you already have an Advance Directive, please fax a copy to [phone] or email to for it to be [...] and scanned into your chart that day. documented in this encounter [facility] 10-03-2024 History and physical note Images from the original note were not included. [facility] HISTORY AND PHYSICAL EXAMINATION SERVICE DATE: 10/03/2024 SERVICE TIME: 2:59 PM PRIMARY CARE PHYSICIAN: Alek Fatima MD Assessment Patient has the following medical conditions which may affect zehra-operative course: Paroxysmal atrial fibrillation (HCC) Assessment: Persistent, Long standing Rate controlled, did auscultate runs of increasing HR/frequency 10/03/2024 EKG performed; Stable, no acute changes observed. Pt. is Asymptomatic Follows with Dr. Adriana Soto ([facility] 09/29/2024) for Pre-op; Risk assessment completed. Mixed hyperlipidemia Assessment: Managed with Statin , Stable. Essential hypertension Assessment: Managed with med, stable. Date: BP: 10/03/2024 119/69 09/21/2024 142/81 09/13/2024 134/83 Chronic systolic (congestive) heart failure (HCC) Assessment: Stable with current regimen , EF = 53 5%( 11/2023 ECHO ) Compensated Coronary artery disease involving tun[place] coronary artery of tun[place]ak heart without angina pectoris Assessment: CAD 30-40% stenosis in LAD per 2020 CARDIAC CATH No stents Pt. currently Denies any new or worsening cardiovascular symptoms Asthma Assessment: Receives Allergy shots, No current inhaler use. Stable per Pt. report History of prostate cancer Assessment: s/p radical prostatectomy and radiation ( 2023) Follows with urology, Radiation/ONC ANESTHESIA FINDINGS: Intubation History: No history of difficult intubation Significant Anesthesia Considerations: none Airway History: No history of difficult airway Saravia Activity Status Index: METS: Walk indoors, such as around the house (1.75 METs) Do light work around the house, such as dusting or washing dishes (2.70 METs) Take care of self; that is eating, dressing, bathing, using the toilet (2.75 METs) Walk a block or two on level ground (2.75 METs) Do moderate work around the house, such as vacuuming, sweeping floors, or carrying in groceries (3.50 METs) Do yardwork, such as raking leaves, weeding, or pushing a power mower (4.50 METs) Climb a flight of stairs or walk up a hill (5.50 METs) DASI Score: 23.45 Patient denies any chest pain or undue shortness of breath with the above physical activity. Clinical Frailty Scale: 3. Well, with treated comorbid disease STOP-Bang Score: Snores loudly Has or is being treated for high blood pressure Patient over 50 years old Has a large neck Male patient Denies feeling tired, fatigued, or sleepy during the daytime Has not been observed to stop breathing or choking/gasping during sleep BMI less than or equal to 35 kg/m^2 STOP-Bang Score: 5 I - PHYSICAL EVALUATION AIRWAY Patient intubated: No. Mallampati: III. TM distance: >3 FB. Neck ROM: full ROM without neurological symptoms. Mouth opening: adequate. Short neck: no. Thick neck: yes Macias present: no Lip Bite Test: II Microretrognathia/Micronagthia/Re cessed Chin: No DENTAL Dental findings: teeth intact and missing tooth/teeth. II - ANESTHESIA PLAN Anesthetic plan additional comments: *PACC/TCI - anesthesia choice. Beta José Miguel Monitoring Plan Post Procedure Analgesic Plan Prepared for Surgery: optimally prepared for surgery, pending [see comment]. Results 09/29/2024 Cardiac Risk Assessment: Cardiac risk stratification -RCRI: 1 points, RCRI Score 6.0 % Risk of major cardiac event -Cath 2020: mild to mod dz in LAD -ECHO 11/2023: preserved LVEF -EKG today shows a.fib, no ischemic changes -He reports METS >4 -He is at low risk for a cardiovascular event for an intermediate risk procedure. -Okay to hold coumadin 5 days prior and resume as soon as cleared by surgeon. CONSULTS: Planned Anesthetic: anesthesia choice The Following Tests/Procedures Have Been Initiated: Orders Placed This Encounter Complete Blood Count Standing Status: Future Number of Occurrences: 1 Expected Date: 10/03/2024 Expiration Date: 01/02/2025 BMP Standing Status: Future Number of Occurrences: 1 Expected Date: 10/03/2024 Expiration Date: 01/02/2025 ECG COMPLETE Order Comments: Ordered by an unspecified provider ECG (IN OFFICE) REASON FOR VISIT: Sukhdeep Gamino is a 63 year old male who is scheduled for HERNIORRHAPHY INGUINAL ELECTIVE ADULT REDUCIBLE Procedure(s): HERNIORRHAPHY INGUINAL ELECTIVE ADULT REDUCIBLE (Left) at the request of Dr. Porfirio Castaneda for consultation. My final recommendation will be communicated back to the requesting physician by way of shared medical record or letter. Subjective COVID-19 Immunization Status Current Care Gaps Covid-19 Vaccine ( season) Overdue since 04/03/2024 11/01/2020 Imm Admin: COVID-19 original vaccine, age 12+ yr, monovalent (PFIZER-BIONTECH - PURPLE TOP) 10/11/2020 Imm Admin: COVID-19 original vaccine, age 12+ yr, monovalent (PFIZER-BIONTECH - PURPLE TOP) CHIEF COMPLAINT: surgery HPI: Patient is a 63 year old male with Non-recurrent unilateral inguinal hernia without obstruction or gangrene that is recommended for surgery . Pt. Currently Denies pain, nausea, vomiting, fevers/chills or acute changes with urination. H&P noted 09/29/2024 >Cardiology. REVIEW OF SYSTEMS: General: No weight loss, malaise or fevers. Neurological: No history of TIA's, stroke, [employer] OVERHAUL tumor, impaired sensorium, hemiplegia, paraplegia or quadraplegia. No neurological symptoms or problems. Respiratory: Positive for: asthma. Negative for: current cough, bronchodilator used daily for the last 3 months, dyspnea, pneumonia within 6 weeks, tobacco use, URI < 2 weeks and obstructive sleep apnea. Cardiovascular: per 09/29/2024 Cardiology visit: #Aortic dilatation -Noted to be mildly enlarged at 4.1cm -Will obtain follow-up ECHO in November, Positive for: anticoagulation therapy, atrial fibrillation, CAD, CHF, hyperlipidemia and hypertension Negative for: AICD/PPM, chest pain, DVT/PE and murmur/valvular heart disease. GI: See HPI. Negative for: dysphagia, liver disease, nausea, pancreatitis and vomiting. : No history of dysuria, frequency or incontinence, stones or chronic kidney disease. No difficulty urinating, nocturia > 1 time per night or hematuria. Endocrine: No history of diabetes. Has not taken steroids within the past 30 days. No history of endocrinological symptoms or problems. Hematology: Positive for: chronic anti-coagulation/platelet meds. Patient is on anti-coagulation/platelet medication(s): Coumadin. Negative for: anemia and thrombocytopenia. Oncology: (+) Hx prostate cancer Psych: No history of psychiatric symptoms or problems. Musculoskeletal: Positive for: back pain. Negative for: joint pain. Skin: Negative for lesions, rash and itching. Implanted Devices: No implanted devices. PAST MEDICAL HISTORY Diagnosis Date Asthma Atrial fibrillation (HCC) CHF (congestive heart failure) (HCC) NEGATIVE HISTORY OF 09/21/2024 No pn,tb,dm PAST SURGICAL HISTORY Procedure Laterality Date PAST SURGICAL HISTORY OF 2023 radical prostatectomy SINUS SURGERY HX TOTAL HIP REPLACEMENT Right 2020 FAMILY HISTORY Problem Relation Age of Onset Breast Cancer Sister Social History Tobacco Use Smoking status: Never Smokeless tobacco: Never Vaping Use Vaping status: Never Used Substance Use Topics Alcohol use: Never Drug use: Never Prior to Admission medications as of 10/03/24 1517 Medication Sig Last Dose Taking Tadalafil (CIALIS) 5 mg tablet Take 1 tablet by mouth once daily. Yes pravastatin (PRAVACHOL) 40 mg tablet Take 40 mg by mouth daily at bedtime. Yes warfarin (COUMADIN) 6 mg tablet Take 1 tablet by mouth every afternoon. Yes dilTIAZem CD (CARDIZEM CD, CARTIA XT) 120 mg 24 hr capsule TAKE 1 CAPSULE BY MOUTH ONCE DAILY DIRECTED Yes carvedilol (COREG) 25 mg tablet TAKE 1 TABLET BY MOUTH IN THE MORNING AND AT BEDTIME Yes lisinopril (ZESTRIL) 10 mg tablet Take 10 mg by mouth once daily. Yes fluticasone (FLONASE) 50 mcg/actuation nasal spray 1 Grover. Yes relugolix (ORGOVYX) 120 mg tablet Take 1 tablet by mouth once daily. No medication comments found. ALLERGIES Allergen Reactions Ciprofloxacin Hives Objective PHYSICAL EXAM: General: alert and oriented (x 3) and healthy appearance. Pertinent negatives noted - not distressed. Skin: normal color, no rash or lesions. HEENT: EOM intact, pupils equal round and pupils reactive to light. Pertinent negatives noted - no carotid bruit. Cardiovascular: Pulse characterized as regular and irregular.Irregularly Irregular on auscultation including noting increase in rate to tachycardiac . Respiratory: normal breath sounds, no wheezes or crackles. No chest wall deformity or tenderness. Abdomen: bowel sounds present and soft. Pertinent negatives noted - not tender. Extremities: no deformity, no edema or tenderness, no joint swelling or clubbing. Neurological: normal cognition and motor skills. Gait normal. No weakness or sensory deficit. PAIN ASSESSMENT: VITALS: BP 119/69 Pulse 82 Temp (Src) 98.2 (Temporal) Resp 16 Ht 5' 10 (1.78m) Wt 199 lb 4.7 oz (90.4kg) SpO2 99% BMI 28.60 kg/(m^2). Diagnostic tests reviewed for today's visit: Lab Value Units Date High Low HB 13.3 g/dL 06/23/2024 17.0 13.0 HCT 39.4 % 06/23/2024 51.0 39.0 WBC 7.00 k/uL 06/23/2024 11.00 3.70 PLT 300 k/uL 06/23/2024 400 150 NA No results within date range. K No results within date range. GLUC No results within date range. BUN No results within date range. CREAT No results within date range. PTSEC No results within date range. INR No results within date range. APTT No results within date range. ALT No results within date range. AST No results within date range. TBILI No results within date range. TSH No results within date range. Lab Value Units Date High Low HCGQT No results within date range. UHCG No results within date range. HCG, BODY* No results within date range. Lab Value Units Date High Low ABORHD No results within date range. ABSCREEN No results within date range. No results found for: HBA1C Recent Results (from the past 8760 hours) ECG COMPLETE Collection Time: 10/03/24 2:41 PM Result Value Ventricular Rate 101 QRS Duration 80 QT Interval 360 QTC Calculation (Bazett) 466 Calculated R Section -29 Calculated T Section 17 Impression ATRIAL FIBRILLATION WITH RAPID VENTRICULAR RESPONSE WITH PREMATURE VENTRICULAR COMPLEXES LOW VOLTAGE QRS, CONSIDER PULMONARY DISEASE, PERICARDIAL EFFUSION, OR NORMAL VARIANT ABNORMAL ECG Recent Results (from the past 73048 hours) ECHO Collection Time: 11/03/23 3:14 PM Impression [...] * * * Final * * * 11/03/2023 NM CARDIAC PERF STRESS/EXERCISE CONCLUSIONS: 1. SPECT Perfusion Study: Normal. 2. [...] Gated Rest FBP LVEF % 61 59 2020 CARDIAC CATH View External Cardiology - Cardiac Cath 01/28/21 [ID [id number]] Instructions Given to Patient: Instructions located in the after visit summary. Patient given verbal and written preop instructions and voices comprehension and compliance. SIGNATURE: Haily Cline APRN.CNP PATIENT NAME: Sukhdeep Gamino DATE: 10/03/2024 TIME: 2:[address] [facility] 10-03-2024 History and physical note Images from the original note were not included. [facility] HISTORY AND PHYSICAL EXAMINATION SERVICE DATE: 10/03/2024 SERVICE TIME: 2:59 PM PRIMARY CARE PHYSICIAN: Alek Fatima MD Assessment Patient has the following medical conditions which may affect zehra-operative course: Paroxysmal atrial fibrillation (HCC) Assessment: Persistent, Long standing Rate controlled, did auscultate runs of increasing HR/frequency 10/03/2024 EKG performed; Stable, no acute changes observed. Pt. is Asymptomatic Follows with Dr. Adriana Soto ([facility] 09/29/2024) for Pre-op; Risk assessment completed. Mixed hyperlipidemia Assessment: Managed with Statin , Stable. Essential hypertension Assessment: Managed with med, stable. Date: BP: 10/03/2024 119/69 09/21/2024 142/81 09/13/2024 134/83 Chronic systolic (congestive) heart failure (HCC) Assessment: Stable with current regimen , EF = 53 5%( 11/2023 ECHO ) Compensated Coronary artery disease involving [place] coronary artery of [place] heart without angina pectoris Assessment: CAD 30-40% stenosis in LAD per 2020 CARDIAC CATH No stents Pt. currently Denies any new or worsening cardiovascular symptoms Asthma Assessment: Receives Allergy shots, No current inhaler use. Stable per Pt. report History of prostate cancer Assessment: s/p radical prostatectomy and radiation ( 2023) Follows with urology, Radiation/[facility]C ANESTHESIA FINDINGS: Intubation History: No history of difficult intubation Significant Anesthesia Considerations: none Airway History: No history of difficult airway Saravia Activity Status Index: METS: Walk indoors, such as around the house (1.75 METs) Do light work around the house, such as dusting or washing dishes (2.70 METs) Take care of self; that is eating, dressing, bathing, using the toilet (2.75 METs) Walk a block or two on level ground (2.75 METs) Do moderate work around the house, such as vacuuming, sweeping floors, or carrying in groceries (3.50 METs) Do yardwork, such as raking leaves, weeding, or pushing a power mower (4.50 METs) Climb a flight of stairs or walk up a hill (5.50 METs) DASI Score: 23.45 Patient denies any chest pain or undue shortness of breath with the above physical activity. Clinical Frailty Scale: 3. Well, with treated comorbid disease STOP-Bang Score: Snores loudly Has or is being treated for high blood pressure Patient over 50 years old Has a large neck Male patient Denies feeling tired, fatigued, or sleepy during the daytime Has not been observed to stop breathing or choking/gasping during sleep BMI less than or equal to 35 kg/m^2 STOP-Bang Score: 5 I - PHYSICAL EVALUATION AIRWAY Patient intubated: No. Mallampati: III. TM distance: >3 FB. Neck ROM: full ROM without neurological symptoms. Mouth opening: adequate. Short neck: no. Thick neck: yes Macias present: no Lip Bite Test: II Microretrognathia/Micronagthia/Re cessed Chin: No DENTAL Dental findings: teeth intact and missing tooth/teeth. II - ANESTHESIA PLAN Anesthetic plan additional comments: *PACC/TCI - anesthesia choice. Beta José Miguel Monitoring Plan Post Procedure Analgesic Plan Prepared for Surgery: optimally prepared for surgery, pending [see comment]. Results 09/29/2024 Cardiac Risk Assessment: Cardiac risk stratification -RCRI: 1 points, RCRI Score 6.0 % Risk of major cardiac event -Cath 2020: mild to mod dz in LAD -ECHO 11/2023: preserved LVEF -EKG today shows a.fib, no ischemic changes -He reports METS >4 -He is at low risk for a cardiovascular event for an intermediate risk procedure. -Okay to hold coumadin 5 days prior and resume as soon as cleared by surgeon. CONSULTS: Planned Anesthetic: anesthesia choice The Following Tests/Procedures Have Been Initiated: Orders Placed This Encounter Complete Blood Count Standing Status: Future Number of Occurrences: 1 Expected Date: 10/03/2024 Expiration Date: 01/02/2025 BMP Standing Status: Future Number of Occurrences: 1 Expected Date: 10/03/2024 Expiration Date: 01/02/2025 ECG COMPLETE Order Comments: Ordered by an unspecified provider ECG (IN OFFICE) REASON FOR VISIT: Sukhdeep Gamino is a 63 year old male who is scheduled for HERNIORRHAPHY INGUINAL ELECTIVE ADULT REDUCIBLE Procedure(s): HERNIORRHAPHY INGUINAL ELECTIVE ADULT REDUCIBLE (Left) at the request of Dr. Porfirio Castaneda for consultation. My final recommendation will be communicated back to the requesting physician by way of shared medical record or letter. Subjective COVID-19 Immunization Status Current Care Gaps Covid-19 Vaccine () Overdue since 04/03/2024 11/01/2020 Imm Admin: COVID-19 original vaccine, age 12+ yr, monovalent (PFIZER-BIONTECH - PURPLE TOP) 10/11/2020 Imm Admin: COVID-19 original vaccine, age 12+ yr, monovalent (PFIZER-BIONTECH - PURPLE TOP) CHIEF COMPLAINT: surgery HPI: Patient is a 63 year old male with Non-recurrent unilateral inguinal hernia without obstruction or gangrene that is recommended for surgery . Pt. Currently Denies pain, nausea, vomiting, fevers/chills or acute changes with urination. H&P noted 09/29/2024 >Cardiology. REVIEW OF SYSTEMS: General: No weight loss, malaise or fevers. Neurological: No history of TIA's, stroke, [employer] OVERHAUL tumor, impaired sensorium, hemiplegia, paraplegia or quadraplegia. No neurological symptoms or problems. Respiratory: Positive for: asthma. Negative for: current cough, bronchodilator used daily for the last 3 months, dyspnea, pneumonia within 6 weeks, tobacco use, URI < 2 weeks and obstructive sleep apnea. Cardiovascular: per 09/29/2024 Cardiology visit: #Aortic dilatation -Noted to be mildly enlarged at 4.1cm -Will obtain follow-up ECHO in November, Positive for: anticoagulation therapy, atrial fibrillation, CAD, CHF, hyperlipidemia and hypertension Negative for: AICD/PPM, chest pain, DVT/PE and murmur/valvular heart disease. GI: See HPI. Negative for: dysphagia, liver disease, nausea, pancreatitis and vomiting. : No history of dysuria, frequency or incontinence, stones or chronic kidney disease. No difficulty urinating, nocturia > 1 time per night or hematuria. Endocrine: No history of diabetes. Has not taken steroids within the past 30 days. No history of endocrinological symptoms or problems. Hematology: Positive for: chronic anti-coagulation/platelet meds. Patient is on anti-coagulation/platelet medication(s): Coumadin. Negative for: anemia and thrombocytopenia. Oncology: (+) Hx prostate cancer Psych: No history of psychiatric symptoms or problems. Musculoskeletal: Positive for: back pain. Negative for: joint pain. Skin: Negative for lesions, rash and itching. Implanted Devices: No implanted devices. PAST MEDICAL HISTORY Diagnosis Date Asthma Atrial fibrillation (HCC) CHF (congestive heart failure) (HCC) NEGATIVE HISTORY OF 09/21/2024 No pn,tb,dm PAST SURGICAL HISTORY Procedure Laterality Date PAST SURGICAL HISTORY OF 2023 radical prostatectomy SINUS SURGERY HX TOTAL HIP REPLACEMENT Right 2020 FAMILY HISTORY Problem Relation Age of Onset Breast Cancer Sister Social History Tobacco Use Smoking status: Never Smokeless tobacco: Never Vaping Use Vaping status: Never Used Substance Use Topics Alcohol use: Never Drug use: Never Prior to Admission medications as of 10/03/24 1517 Medication Sig Last Dose Taking Tadalafil (CIALIS) 5 mg tablet Take 1 tablet by mouth once daily. Yes pravastatin (PRAVACHOL) 40 mg tablet Take 40 mg by mouth daily at bedtime. Yes warfarin (COUMADIN) 6 mg tablet Take 1 tablet by mouth every afternoon. Yes dilTIAZem CD (CARDIZEM CD, CARTIA XT) 120 mg 24 hr capsule TAKE 1 CAPSULE BY MOUTH ONCE DAILY DIRECTED Yes carvedilol (COREG) 25 mg tablet TAKE 1 TABLET BY MOUTH IN THE MORNING AND AT BEDTIME Yes lisinopril (ZESTRIL) 10 mg tablet Take 10 mg by mouth once daily. Yes fluticasone (FLONASE) 50 mcg/actuation nasal spray 1 Grover. Yes relugolix (ORGOVYX) 120 mg tablet Take 1 tablet by mouth once daily. No medication comments found. ALLERGIES Allergen Reactions Ciprofloxacin Hives Objective PHYSICAL EXAM: General: alert and oriented (x 3) and healthy appearance. Pertinent negatives noted - not distressed. Skin: normal color, no rash or lesions. HEENT: EOM intact, pupils equal round and pupils reactive to light. Pertinent negatives noted - no carotid bruit. Cardiovascular: Pulse characterized as regular and irregular.Irregularly Irregular on auscultation including noting increase in rate to tachycardiac . Respiratory: normal breath sounds, no wheezes or crackles. No chest wall deformity or tenderness. Abdomen: bowel sounds present and soft. Pertinent negatives noted - not tender. Extremities: no deformity, no edema or tenderness, no joint swelling or clubbing. Neurological: normal cognition and motor skills. Gait normal. No weakness or sensory deficit. PAIN ASSESSMENT: VITALS: BP 119/69 Pulse 82 Temp (Src) 98.2 (Temporal) Resp 16 Ht 5' 10 (1.78m) Wt 199 lb 4.7 oz (90.4kg) SpO2 99% BMI 28.60 kg/(m^2). Diagnostic tests reviewed for today's visit: Lab Value Units Date High Low HB 13.3 g/dL 06/23/2024 17.0 13.0 HCT 39.4 % 06/23/2024 51.0 39.0 WBC 7.00 k/uL 06/23/2024 11.00 3.70 PLT 300 k/uL 06/23/2024 400 150 NA No results within date range. K No results within date range. GLUC No results within date range. BUN No results within date range. CREAT No results within date range. PTSEC No results within date range. INR No results within date range. APTT No results within date range. ALT No results within date range. AST No results within date range. TBILI No results within date range. TSH No results within date range. Lab Value Units Date High Low HCGQT No results within date range. UHCG No results within date range. HCG, BODY* No results within date range. Lab Value Units Date High Low ABORHD No results within date range. ABSCREEN No results within date range. No results found for: HBA1C Recent Results (from the past 8760 hours) ECG COMPLETE Collection Time: 10/03/24 2:41 PM Result Value Ventricular Rate 101 QRS Duration 80 QT Interval 360 QTC Calculation (Bazett) 466 Calculated R Section -29 Calculated T Section 17 Impression ATRIAL FIBRILLATION WITH RAPID VENTRICULAR RESPONSE WITH PREMATURE VENTRICULAR COMPLEXES LOW VOLTAGE QRS, CONSIDER PULMONARY DISEASE, PERICARDIAL EFFUSION, OR NORMAL VARIANT ABNORMAL ECG Recent Results (from the past 82253 hours) ECHO Collection Time: 04/02/24 3:14 PM Impression CONCLUSIONS: - Exam indication: [...] The patient has not had a prior echocardiographic exam for comparison. * * * Final * * * 11/03/2023 NM CARDIAC PERF STRESS/EXERCISE CONCLUSIONS: 1. SPECT Perfusion Study: Normal. 2. [...] Gated Rest FBP LVEF % 61 59 2020 CARDIAC CATH View External Cardiology - Cardiac Cath 01/28/21 [ID [id number]] Instructions Given to Patient: Instructions located in the after visit summary. Patient given verbal and written preop instructions and voices comprehension and compliance. SIGNATURE: Haily Cline APRN.CNP PATIENT NAME: Sukhdeep Gamino DATE: 10/03/2024 TIME: 2:59 PM documented in this encounter [facility] 09-29-2024 [facility]. Not yet scheduled. Denies chest pain, SOB, palpitations, lightheadedness/syncope, and bleeding on warfarin. Review of Systems Hematologic/Lymphatic: Bruises/bleeds easily. Musculoskeletal: Positive for arthritis, back pain and myalgias. All other systems reviewed and are negative. [facility] 02-27-2025 Note Cardiovascular Medic in[facility] SUBJECTIVE Chief Complaint Patient presents with Coronary Artery Disease Hypertension Sukhdeep Gamino is a 63 y.o. male here for follow-up and cardiac risk stratification for his upcoming hernia surgery. HPI PMHx: CAD, HFrEF, HTN, HLD, persistent longstanding a.fib He denies any changes since last seen. He had prostate CA surgery with radiation last year. He states he can walk 2 blocks or a flight of stairs without feeling SOB or chest pain. Denies c/o CP, dyspnea, orthopnea, PND, LE edema, dizziness/LH, palpitations, syncope. Patient Active Problem List Diagnosis Mixed hyperlipidemia Chronic systolic CHF (congestive heart failure), NYHA class 2 (CMS/HCC) Coronary artery disease involving [place] coronary artery of [place] heart without angina pectoris Benign hypertensive cardiomyopathy with heart failure (CMS/HCC) Paroxysmal atrial fibrillation (CMS/HCC) Asthma Chronic sinusitis Essential hypertension Osteoarthritis of right hip S/P total right hip arthroplasty Benign prostatic hyperplasia with urinary obstruction Cardiomyopathy in diseases classified elsewhere (CMS/HCC) Chronic ischemic heart disease Elevated PSA Heart disease Inguinal hernia Malignant neoplasm of prostate (CMS/HCC) Past Medical History: Diagnosis Date Abnormal ECG Arrhythmia Asthma Atrial fibrillation (CMS/HCC) Cancer (CMS/HCC) CHF (congestive heart failure) (CMS/HCC) Coronary artery disease Hypertension No family history on file. Social History Tobacco Use Smoking status: Never Smokeless tobacco: Never Substance Use Topics Alcohol use: Not Currently Allergies Allergen Reactions Ciprofloxacin Hives ROS Hematologic/Lymphatic: Bruises/bleeds easily. Musculoskeletal: Positive for arthritis, back pain and myalgias. All other systems reviewed and are negative. OBJECTIVE Visit Vitals BP 122/76 (BP Location: Left arm, Patient Position: Sitting) Pulse 99 Ht 1.778 m (5' 10 ) Wt 88.5 kg (195 lb) SpO2 99% BMI 27.98 kg/m??? Smoking Status Never BSA 2.09 m??? Medications: Current Outpatient Medications: carvedilol (Coreg) 25 mg tablet, TAKE 1 TABLET BY MOUTH IN THE MORNING AND AT BEDTIME, Disp: 180 tablet, Rfl: 3 dilTIAZem CD (Cardizem CD) 120 mg 24 hr capsule, TAKE 1 CAPSULE BY MOUTH ONCE DAILY DIRECTED, Disp: 90 capsule, Rfl: 3 fluticasone (Flonase) 50 mcg/actuation nasal spray, Administer 1 spray into each nostril in the morning. Shake gently. Before first use, prime pump. After use, clean tip and replace cap., Disp: , Rfl: lisinopril 10 mg tablet, Take 1 tablet (10 mg) by mouth in the morning. as directed, Disp: 90 tablet, Rfl: 3 pravastatin (Pravachol) 40 mg tablet, Take 1 tablet (40 mg) by mouth at bedtime., Disp: 90 tablet, Rfl: 3 warfarin (Coumadin) 6 mg tablet, warfarin 6 mg tablet TAKE 1 TABLET BY MOUTH ONCE DAILY, THEN ON ODD DAYS ADD 1MG TABLET WITH THE 6MG TABLET, Disp: , Rfl: Physical Exam Constitutional: Appearance: Normal appearance. HENT: Head: Normocephalic and atraumatic. Right Ear: External ear normal. Left Ear: External ear normal. Eyes: Extraocular Movements: Extraocular movements intact. Pupils: Pupils are equal, round, and reactive to light. Neck: Vascular: No carotid bruit. Cardiovascular: Rate and Rhythm: Normal rate and regular rhythm. Pulses: Normal pulses. Heart sounds: Normal heart sounds. Pulmonary: Effort: Pulmonary effort is normal. Breath sounds: Normal breath sounds. Abdominal: General: Bowel sounds are normal. Palpations: Abdomen is soft. Musculoskeletal: General: Normal range of motion. Cervical back: Neck supple. Right lower leg: No edema. Left lower leg: No edema. Skin: General: Skin is warm and dry. Neurological: General: No focal deficit present. Mental Status: He is alert and oriented to person, place, and time. Psychiatric: Mood and Affect: Mood normal. Behavior: Behavior normal. Thought Content: Thought content normal. Judgment: Judgment normal. Labs: Legacy Encounter on 01/28/2021 Component Date Value Ref Range Status Ventricular Rate 01/28/2021 80 BPM Final Atrial Rate 01/28/2021 90 BPM Final QRS DURATION 01/28/2021 82 ms Final QT Interval 01/28/2021 356 ms Final QTC CALCULATION(BAZETT) 01/28/2021 410 ms Final R-Section 01/28/2021 -43 degrees Final T Wave Section 01/28/2021 13 degrees Final Diagnosis 01/28/2021 Final Value:Atrial fibrillation Left axis deviation Low voltage QRS Cannot rule out Anterior infarct (cited on or before 26-FEB-2009) Abnormal ECG When compared with ECG of 01-MAR-2009 06:37, Atrial fibrillation has replaced Atrial flutter QRS voltage has decreased Nonspecific T wave abnormality no longer evident in Lateral QT has shortened Confirmed by Hermes Campos ([id number]) on 01/28/2021 7:02:32 PM No results found for: EXTCMP , BMPR1A , CBCDIF , BNP , LASAP , RED (more content not included)... [facility] 09-21-2024 Telephone encounter Note Images from the original note were not included. [facility] Work Phone: 09-21-2024 Miscellaneous Notes Images from the original note were not included. documented in this encounter [facility] 09-21-2024 History and physical note SERVICE DATE: 09/21/2024 SERVICE TIME: 9:49 AM SERVICE: General Surgery REFERRAL PHYSICIAN: [place] [id number] Sukhdeep Gamino is here today at the request of Arnulfo [place]GEL [id number] for my opinion regarding left inguinal hernia. My final recommendation will be communicated back to the requesting physician by way of shared medical record or letter. Assessment ASSESSMENT: Large incarcerated left inguinal hernia PLAN: I have discussed with patient regarding open left inguinal hernia repair with mesh. Risks, benefits and alternatives were discussed. Risks including but not limited to bleeding, pain, infection, scar(s), chronic pain after surgery, repeat procedure, injuries to surrounding skin and soft tissue, testicular structures, intra-abd organs, seroma formation, mesh complication, possible recurrence of symptoms, prolong hospital/surgical stay, cardiopulmonary event, seizure, stroke, allergic reaction to administered medication and . Patient's questions were answered to his satisfaction. Patient understands and wishes to proceed with surgery. On coumadin. Will get cardiac clearance prior to schedule. Contact info and brochure given to patient as well. Travel and lifting weight limit restrictions also discussed. Patient is fully aware of these restrictions. HPI: 63 year old y/o male referred from radiation oncologist for evaluation of a left groin bulge. Patient states he has had the bulge for about 5 years but due to insurance and health issues was unable to address. Last year patient underwent a radical prostatectomy for prostate cancer and since that time he feels the bulge is larger and harder to push in . He does wear a belt to the area that helps minimize the pain to a 1/10. Pain is worse with coughing and denotes as dull in nature. PAST MEDICAL HISTORY Diagnosis Date Asthma Atrial fibrillation (HCC) CHF (congestive heart failure) (HCC) NEGATIVE HISTORY OF 09/21/2024 No pn,tb,dm PAST SURGICAL HISTORY Procedure Laterality Date SINUS SURGERY HX TOTAL HIP REPLACEMENT Right 2020 MEDICATIONS: Current Outpatient Medications: Tadalafil (CIALIS) 5 mg tablet, Take 1 tablet by mouth once daily., Disp: 90 tablet, Rfl: 1 pravastatin (PRAVACHOL) 40 mg tablet, Take 40 mg by mouth daily at bedtime., Disp: , Rfl: warfarin (COUMADIN) 6 mg tablet, Take 1 tablet by mouth every afternoon., Disp: , Rfl: dilTIAZem CD (CARDIZEM CD, CARTIA XT) 120 mg 24 hr capsule, TAKE 1 CAPSULE BY MOUTH ONCE DAILY DIRECTED, Disp: , Rfl: carvedilol (COREG) 25 mg tablet, TAKE 1 TABLET BY MOUTH IN THE MORNING AND AT BEDTIME, Disp: , Rfl: lisinopril (ZESTRIL) 10 mg tablet, Take 10 mg by mouth once daily., Disp: , Rfl: fluticasone (FLONASE) 50 mcg/actuation nasal spray, 1 Grover., Disp: , Rfl: relugolix (ORGOVYX) 120 mg tablet, Take 1 tablet by mouth once daily., Disp: 30 tablet, Rfl: 5 acetaminophen (TYLENOL EXTRA STRENGTH) 500 mg tablet, Take 2 tablets by mouth every 8 hours as needed for pain for up to 40 doses., Disp: 40 tablet, Rfl: 0 ALLERGIES Allergen Reactions Ciprofloxacin Hives FAMILY HISTORY Problem Relation Age of Onset Breast Cancer Sister Social History Tobacco Use Smoking status: Never Smokeless tobacco: Never Substance Use Topics Alcohol use: Never Drug use: Never REVIEW OF SYSTEMS: GENERAL: No weight loss, malaise or fevers HEENT: Negative for frequent or significant headaches, No changes in hearing or vision, no nose bleeds or other nasal problems NECK: Negative for lumps, goiter, pain and significant neck swelling RESPIRATORY: Wheezing, Shortness of breath CARDIOVASCULAR: Hypertension, + CHF, + Atrial fib on Coumadin GI: No nausea, vomiting, or diarrhea : See HPI MUSCULOSKELETAL: Negative for joint pain or swelling, back pain or muscle pain SKIN: Positive for itching: right buttock PSYCH: Negative HEMATOLOGY/LYMPHOLOGY: finished radaition in 08/2024 and currently on hormone therpay for 6 months NEURO: No history of headaches, syncope, paralysis, seizures or tremors PHYSICAL EXAM: BP 142/81 Pulse 76 Ht 177.8 cm (5' 10 ) Wt 88.2 kg (194 lb 7.1 oz) BMI 27.90 kg/m Body mass index is 27.9 kg/m . GENERAL: Healthy, alert, no distress, cooperative SKIN: Skin color, texture, turgor normal. No rashes or lesions. HEAD/SINUSES: No significant findings ABDOMEN: Soft, nontender EXTREMITIES: No ulcers NEURO: Grossly normal cognition, motor function GENITALIA MALE: A large, eggplant size left inguinal hernia extending into the left scrotum, non-reducible, min tender. Participation of a fellow, resident, medical student, or advanced practice provider student in performing the sensitive examination was discussed with the patient or authorized financial representative. The patient or authorized financial representative has agreed to proceed with the sensitive examination. (Sensitive examination includes inspection and/or palpation of the breasts, pelvis, prostate and anorectal regions) Diagnostic tests reviewed for today's visit: No new labs SIGNATURE: Maryan Johnston RN PATIENT NAME: Sukhdeep Gamino DATE: September 21, 2024 TIME: 9:49 AM corbin Castaneda DO [facility] Work Phone: 09-21-2024 History and physical note SERVICE DATE: 09/21/2024 SERVICE TIME: 9:49 AM SERVICE: General Surgery REFERRAL PHYSICIAN: Arnulfo Harley [facility] [place] [address] Sukhdeep Gamino is here today at the request of [place] [id number] for my opinion regarding left inguinal hernia. My final recommendation will be communicated back to the requesting physician by way of shared medical record or letter. Assessment ASSESSMENT: Large incarcerated left inguinal hernia PLAN: I have discussed with patient regarding open left inguinal hernia repair with mesh. Risks, benefits and alternatives were discussed. Risks including but not limited to bleeding, pain, infection, scar(s), chronic pain after surgery, repeat procedure, injuries to surrounding skin and soft tissue, testicular structures, intra-abd organs, seroma formation, mesh complication, possible recurrence of symptoms, prolong hospital/surgical stay, cardiopulmonary event, seizure, stroke, allergic reaction to administered medication and . Patient's questions were answered to his satisfaction. Patient understands and wishes to proceed with surgery. On coumadin. Will get cardiac clearance prior to schedule. Contact info and brochure given to patient as well. Travel and lifting weight limit restrictions also discussed. Patient is fully aware of these restrictions. HPI: 63 year old y/o male referred from radiation oncologist for evaluation of a left groin bulge. Patient states he has had the bulge for about 5 years but due to insurance and health issues was unable to address. Last year patient underwent a radical prostatectomy for prostate cancer and since that time he feels the bulge is larger and harder to push in . He does wear a belt to the area that helps minimize the pain to a 1/10. Pain is worse with coughing and denotes as dull in nature. PAST MEDICAL HISTORY Diagnosis Date Asthma Atrial fibrillation (HCC) CHF (congestive heart failure) (HCC) NEGATIVE HISTORY OF 09/21/2024 No pn,tb,dm PAST SURGICAL HISTORY Procedure Laterality Date SINUS SURGERY HX TOTAL HIP REPLACEMENT Right 2020 MEDICATIONS: Current Outpatient Medications: Tadalafil (CIALIS) 5 mg tablet, Take 1 tablet by mouth once daily., Disp: 90 tablet, Rfl: 1 pravastatin (PRAVACHOL) 40 mg tablet, Take 40 mg by mouth daily at bedtime., Disp: , Rfl: warfarin (COUMADIN) 6 mg tablet, Take 1 tablet by mouth every afternoon., Disp: , Rfl: dilTIAZem CD (CARDIZEM CD, CARTIA XT) 120 mg 24 hr capsule, TAKE 1 CAPSULE BY MOUTH ONCE DAILY DIRECTED, Disp: , Rfl: carvedilol (COREG) 25 mg tablet, TAKE 1 TABLET BY MOUTH IN THE MORNING AND AT BEDTIME, Disp: , Rfl: lisinopril (ZESTRIL) 10 mg tablet, Take 10 mg by mouth once daily., Disp: , Rfl: fluticasone (FLONASE) 50 mcg/actuation nasal spray, 1 Grover., Disp: , Rfl: relugolix (ORGOVYX) 120 mg tablet, Take 1 tablet by mouth once daily., Disp: 30 tablet, Rfl: 5 acetaminophen (TYLENOL EXTRA STRENGTH) 500 mg tablet, Take 2 tablets by mouth every 8 hours as needed for pain for up to 40 doses., Disp: 40 tablet, Rfl: 0 ALLERGIES Allergen Reactions Ciprofloxacin Hives FAMILY HISTORY Problem Relation Age of Onset Breast Cancer Sister Social History Tobacco Use Smoking status: Never Smokeless tobacco: Never Substance Use Topics Alcohol use: Never Drug use: Never REVIEW OF SYSTEMS: GENERAL: No weight loss, malaise or fevers HEENT: Negative for frequent or significant headaches, No changes in hearing or vision, no nose bleeds or other nasal problems NECK: Negative for lumps, goiter, pain and significant neck swelling RESPIRATORY: Wheezing, Shortness of breath CARDIOVASCULAR: Hypertension, + CHF, + Atrial fib on Coumadin GI: No nausea, vomiting, or diarrhea : See HPI MUSCULOSKELETAL: Negative for joint pain or swelling, back pain or muscle pain SKIN: Positive for itching: right buttock PSYCH: Negative HEMATOLOGY/LYMPHOLOGY: finished radaition in 08/2024 and currently on hormone therpay for 6 months NEURO: No history of headaches, syncope, paralysis, seizures or tremors PHYSICAL EXAM: BP 142/81 Pulse 76 Ht 177.8 cm (5' 10 ) Wt 88.2 kg (194 lb 7.1 oz) BMI 27.90 kg/m Body mass index is 27.9 kg/m . GENERAL: Healthy, alert, no distress, cooperative SKIN: Skin color, texture, turgor normal. No rashes or lesions. HEAD/SINUSES: No significant findings ABDOMEN: Soft, nontender EXTREMITIES: No ulcers NEURO: Grossly normal cognition, motor function GENITALIA MALE: A large, eggplant size left inguinal hernia extending into the left scrotum, non-reducible, min tender. Participation of a fellow, resident, medical student, or advanced practice provider student in performing the sensitive examination was discussed with the patient or authorized financial representative. The patient or authorized financial representative has agreed to proceed with the sensitive examination. (Sensitive examination includes inspection and/or palpation of the breasts, pelvis, prostate and anorectal regions) Diagnostic tests reviewed for today's visit: No new labs SIGNATURE: Maryan Johnston RN PATIENT NAME: Sukhdeep Gamino DATE: September 21, 2024 TIME: 9:49 AM corbin Castaneda DO documented in this encounter [facility] 09-13-2024 Instructions Roxy Armstrong RN - 09/13/2024 9:[address] Roosevelt Bah info per your request [phone] documented in this encounter [facility] 09-06-2024 Telephone encounter Note Done Hugo Reynoso PharmD, BCOP [facility] Work Phone: 09-06-2024 Miscellaneous Notes Done Hugo Reynoso PharmD, BCOP Appointment for his Lupron is recheduled for 09/13/24 at 9:30AM Tish Pagan PSS Pt called in to reschedule eligard injection as he has the flu currently. PSS- please move on epic to 09/13 at 9:30am. Pharmacy- can you please change date for orders. Roxy Armstrong RN documented in this encounter [facility] 09-06-2024 Telephone encounter Note Appointment for his Lupron is recheduled for 09/13/24 at 9:30AM Tish Pagan PSS [facility] 09-06-2024 Telephone encounter Note Pt called in to reschedule eligard injection as he has the flu currently. PSS- please move on epic to 09/13 at 9:30am. Pharmacy- can you please change date for orders. Roxy Armstrong RN [facility] 08-26-2024 Note HNO ID: [id number] Author: DIVINA BRASWELL RN Service: ? Author Type: Registered Nurse Type: Progress Notes Filed: 09/02/2024 13:29 Note Text: AUA= 3 [facility] 08-26-2024 History of Present illness Narrative AUA= 3 Radiation Oncology - Follow Up Note PATIENT NAME: Sukhdeep Gamino PATIENT DIAGNOSIS: Prostate adenocarcinoma, initial PSA 7.9, biopsy Christine score 4 + 5 = 9 (grade group 5), clinical stage T2c, N0, M0, status post robotic radical prostatectomy and bilateral pelvic lymph node dissection for 11/05/2023, Christine 8 (4+4) pT3a pN0, with detectable and rising post prostatectomy PSA, PSA 04/26/2024 0.18. RADIATION SUMMARY: DATES OF TREATMENT: 06/15/2024-08/05/2024 AREA TREATED: Pelvis and Prostate Bed DELIVERED DOSE: Area: Pelvis and Prostate Bed 4600 cGy in 23 fractions, 3 Arcs, IMRT, 10 MV with daily CBCT DELIVERED DOSE: Area: Prostate Bed Boost 2400 cGy in 12 fractions, 2 Arcs, IMRT, 10 MV with daily CBCT TOTAL: 7000 cGy in 35 fractions ELAPSED TIME: 51 days. INTERVAL HISTORY: The patient presents for routine follow-up after recent completion of radiation. Doing well. Denies significant issues. PSA HISTORY: PSA (ng/mL) Date Value 08/24/2024 <0.02 04/26/2024 0.18 03/31/2024 0.12 12/25/2023 0.03 ALLERGIES Allergen Reactions Ciprofloxacin Hives Tadalafil (CIALIS) [...] fluticasone (FLONASE) 50 mcg/actuation nasal spray 1 Grover. relugolix (ORGOVYX) 120 mg tablet Take 1 tablet by mouth once daily. REVIEW OF SYSTEMS: D/N = 4-01/01 Hematuria: none Dysuria: none Incontinence: none Urgency: none Medications to aid urination: n Bowel movement frequency: 1/day Bowel movement quality: normal ADT: Eligard 22.5 06/06/2024 PHYSICAL EXAM: Wt 85.3 kg (188 lb 0.8 oz) BMI 26.98 kg/m KPS: 100 General Appearance: Alert and oriented. No acute distress. ASSESSMENT/PLAN: Prostate adenocarcinoma, initial PSA 7.9, biopsy [place] Gabriel score 4 + 5 = 9 (grade group 5), clinical stage T2c, N0, M0, status post robotic radical prostatectomy and bilateral pelvic lymph node dissection for 11/05/2023, [place] Gabriel 8 (4+4) pT3a pN0, with detectable and rising post prostatectomy PSA, PSA 04/26/2024 0.18. Doing well after recent completion of salvage pelvis and prostate bed radiation. PSA undetectable. Given risk features plan to proceed with additional 6 months of ADT . Plan to recheck PSA in 3 to 4 months. Signed by: Arnulfo Kamara MD cc: Alek Fatima [facility] [place] [address] Arnulfo Kamara [address] [place] [address] [place] [id number] documented in this encounter [facility] 08-26-2024 Note HNO ID: [id number] Author: Arnulfo KAMARA MD Service: ? Author Type: Physician Type: Progress Notes Filed: 09/02/2024 13:29 Note Text: Radiation Oncology - Follow Up Note PATIENT NAME: Sukhdeep Gamino PATIENT DIAGNOSIS: Prostate adenocarcinoma, initial PSA 7.9, biopsy Saint Gabriel score 4 + 5 = 9 (grade group 5), clinical stage T2c, N0, M0, status post robotic radical prostatectomy and bilateral pelvic lymph node dissection for 11/05/2023, [place] Gabriel 8 (4+4) pT3a pN0, with detectable and rising post prostatectomy PSA, PSA 04/26/2024 0.18. RADIATION SUMMARY: DATES OF TREATMENT: 06/15/2024-08/05/2024 AREA TREATED: Pelvis and Prostate Bed DELIVERED DOSE: Area: Pelvis and Prostate Bed 4600 cGy in 23 fractions, 3 Arcs, IMRT, 10 MV with daily CBCT DELIVERED DOSE: Area: Prostate Bed Boost 2400 cGy in 12 fractions, 2 Arcs, IMRT, 10 MV with daily CBCT TOTAL: 7000 cGy in 35 fractions ELAPSED TIME: 51 days. INTERVAL HISTORY: The patient presents for routine follow-up after recent completion of radiation. Doing well. Denies significant issues. PSA HISTORY: PSA (ng/mL) Date Value 08/24/2024 <0.02 04/26/2024 0.18 03/31/2024 0.12 12/25/2023 0.03 ALLERGIES Allergen Reactions Ciprofloxacin Hives Tadalafil (CIALIS) [...] fluticasone (FLONASE) 50 mcg/actuation nasal spray 1 Grover. relugolix (ORGOVYX) 120 mg tablet Take 1 tablet by mouth once daily. REVIEW OF SYSTEMS: D/N = 4-01/01 Hematuria: none Dysuria: none Incontinence: none Urgency: none Medications to aid urination: n Bowel movement frequency: 1/day Bowel movement quality: normal ADT: Eligard 22.5 06/06/2024 PHYSICAL EXAM: Wt 85.3 kg (188 lb 0.8 oz) BMI 26.98 kg/m? KPS: 100 General Appearance: Alert and oriented. No acute distress. ASSESSMENT/PLAN: Prostate adenocarcinoma, initial PSA 7.9, biopsy Christine score 4 + 5 = 9 (grade group 5), clinical stage T2c, N0, M0, status post robotic radical prostatectomy and bilateral pelvic lymph node dissection for 11/05/2023, Christine 8 (4+4) pT3a pN0, with detectable and rising post prostatectomy PSA, PSA 04/26/2024 0.18. Doing well after recent completion of salvage pelvis and prostate bed radiation. PSA undetectable. Given risk features plan to proceed with additional 6 months of ADT . Plan to recheck PSA in 3 to 4 months. Signed by: Arnulfo Kamara MD cc: Alek Fatima [address] [place] [id number] Arnulfo Kamara [address] [place] [address] [place] [address] [facility] 08-05-2024 History of Present illness Narrative [facility] Radiation Oncology Department RADIATION ONCOLOGY - COMPLETION NOTE PATIENT: SUKHDEEP GAMINO: 1960 DATES OF TREATMENT: 06/15/2024-08/05/2024 DIAGNOSIS: Prostate adenocarcinoma, initial PSA 7.9, biopsy Saint Gabriel score 4 + 5 = 9 (grade group 5), clinical stage T2c, N0, M0, status post robotic radical prostatectomy and bilateral pelvic lymph node dissection for 11/05/2023, Christine 8 (4+4) pT3a pN0, with detectable and rising post prostatectomy PSA, PSA 04/26/2024 0.18. AREA TREATED: Pelvis and Prostate Bed DELIVERED DOSE: Area: Pelvis and Prostate Bed 4600 cGy in 23 fractions, 3 Arcs, IMRT, 10 MV with daily CBCT DELIVERED DOSE: Area: Prostate Bed Boost 2400 cGy in 12 fractions, 2 Arcs, IMRT, 10 MV with daily CBCT TOTAL: 7000 cGy in 35 fractions ELAPSED TIME: 51 days. CLINICAL SUMMARY: The patient tolerated radiation with mild radiation related bowel and bladder changes. No other issues. The patient was able to complete treatment as intended without break interruption or modification of prescription plan. The disease response will be assessed in clinic. The patient will be seen again in 3-4 weeks for postradiation follow-up. Staff Physician Jewel Kamara M.D. / RACHEL 52:07 PM Electronically Signed cc: JC Wells Dr[address] Dr. Erica Bah documented in this encounter [facility] 08-05-2024 Note HNO ID: [id number] Author: Arnulfo KAMARA MD Service: ? Author Type: Physician Type: Progress Notes Filed: 08/18/2024 14:07 Note Text: [facility] Radiation Oncology Department RADIATION ONCOLOGY - COMPLETION NOTE PATIENT: SUKHDEEP GAMINO: 1960 DATES OF TREATMENT: 06/15/2024-08/05/2024 DIAGNOSIS: Prostate adenocarcinoma, initial PSA 7.9, biopsy Saint Gabriel score 4 + 5 = 9 (grade group 5), clinical stage T2c, N0, M0, status post robotic radical prostatectomy and bilateral pelvic lymph node dissection for 11/05/2023, Christine 8 (4+4) pT3a pN0, with detectable and rising post prostatectomy PSA, PSA 04/26/2024 0.18. AREA TREATED: Pelvis and Prostate Bed DELIVERED DOSE: Area: Pelvis and Prostate Bed 4600 cGy in 23 fractions, 3 Arcs, IMRT, 10 MV with daily CBCT DELIVERED DOSE: Area: Prostate Bed Boost 2400 cGy in 12 fractions, 2 Arcs, IMRT, 10 MV with daily CBCT TOTAL: 7000 cGy in 35 fractions ELAPSED TIME: 51 days. CLINICAL SUMMARY: The patient tolerated radiation with mild radiation related bowel and bladder changes. No other issues. The patient was able to complete treatment as intended without break interruption or modification of prescription plan. The disease response will be assessed in clinic. The patient will be seen again in 3-4 weeks for postradiation follow-up. Staff Physician Jewel Kamara M.D. / RACHEL 52:07 PM Electronically Signed cc: JC Wells Dr., Dr. Erica Bah [facility] 08-01-2024 Note HNO ID: [id number] Author: Arnulfo KAMARA MD Service: ? Author Type: Physician Type: Progress Notes Filed: 08/01/2024 09:20 Note Text: Radiation Oncology - On Treatment Review (OTR) Note PATIENT NAME: Sukhdeep Gamino PATIENT DIAGNOSIS: Prostate adenocarcinoma, initial PSA 7.9, biopsy Saint Gabriel score 4 + 5 = 9 (grade [...] Continue radiation as outlined. Arnulfo Kamara MD [facility] 08-01-2024 History of Present illness Narrative Radiation Oncology - On Treatment Review (OTR) Note PATIENT NAME: Sukhdeep Gamino PATIENT DIAGNOSIS: Prostate adenocarcinoma, initial PSA 7.9, biopsy Saint Gabriel score 4 + 5 = 9 (grade [...] Arnulfo Kamara MD documented in this encounter [facility] 07-25-2024 Note HNO ID: [id number] Author: Arnulfo KAMARA MD Service: ? Author Type: Physician Type: Progress Notes Filed: 07/25/2024 15:54 Note Text: Radiation Oncology - On Treatment Review (OTR) Note PATIENT NAME: Sukhdeep Gamino PATIENT DIAGNOSIS: Prostate adenocarcinoma, initial PSA 7.9, biopsy Christine score 4 + 5 = 9 (grade group 5), clinical stage T2c, N0, M0, status post robotic radical prostatectomy and bilateral pelvic lymph node dissection for 11/05/2023, [place] Gabriel 8 (4+4) pT3a pN0, with detectable and rising post prostatectomy PSA, PSA 04/26/2024 0.18. COURSE: salvage and post-operative Current dose: 5600 cGy in 28 fx Planned dose: 7000 cGy in 35 fx SUBJECTIVE: Doing well. No further dark dark urine or suspicion for hematuria. No dysuria. Mild diarrhea. PHYSICAL EXAM: 07/25/24 1536 BP: 144/96 Pulse: 107 Resp: 18 Temp: (!) 35.9 ?C (96.7 ?F) SpO2: 100% Weight: 88.5 kg (195 lb [...] Continue radiation as outlined. Arnulfo Kamara MD [facility] 07-25-2024 History of Present illness Narrative [...] Arnulfo Kamara MD documented in this encounter [facility] 07-19-2024 Note HNO ID: [id number] Author: MIL CRUM MD Service: ? Author Type: Physician Type: Progress Notes Filed: 08/02/2024 03:52 Note Text: Radiation Oncology - On Treatment Review (OTR) Note PATIENT NAME: Sukhdeep Gamino PATIENT DIAGNOSIS: Prostate adenocarcinoma, initial PSA 7.9, biopsy Saint Gabriel score 4 + 5 = 9 (grade group 5), clinical stage T2c, N0, M0, status post robotic radical prostatectomy and bilateral pelvic lymph node dissection for 11/05/2023, [place] Gabriel 8 (4+4) pT3a pN0, with detectable and rising post prostatectomy PSA, PSA 04/26/2024 0.18. COURSE: salvage and post-operative Current dose: 4800 cGy in 24 fx Planned dose: 7000 cGy in 35 fx SUBJECTIVE: Tolerating XRT well and denies any burning/discomfort urination with nocturia once. He reports no trouble starting his stream or straining or incomplete emptying but did note a spot of blood on his pad a couple of days. His incontinence is unchanged and uses 1 pad per day. He does note diarrhea occasionally which is managed with Imodium. He does endorse fatigue as well as hot flashes with stable appetite and hydration and weight. EXAM: KPS: 90 General Appearance: Alert and oriented. No acute distress. Radiation dermatitis: No IMAGING/LAB RESULTS: None Treatment chart checked: Yes Patient treatment site reviewed and verified:Yes Port films reviewed and current:Yes Medications started: None ASSESSMENT/PLAN: Clinically stable. Toxicity within expected parameters. Continue radiation treatment as planned. Will continue to monitor the hematuria. Mil Crum MD [facility] 07-19-2024 History of Present illness Narrative [...] Mil Crum MD documented in this encounter [facility] 07-11-2024 Note HNO ID: [id number] Author: Arnulfo KAMARA MD Service: ? Author Type: Physician Type: Progress Notes Filed: 07/11/2024 16:40 Note Text: Radiation Oncology - On Treatment Review (OTR) Note PATIENT NAME: Sukhdeep Gamino PATIENT DIAGNOSIS: Prostate adenocarcinoma, initial PSA 7.9, biopsy Saint Gabriel score 4 + 5 = 9 (grade [...] 155/91 Pulse: 86 Resp: 16 Temp: 36.3 ?C (97.4 ?F) SpO2: 100% Weight: 86.4 kg (190 lb [...] Continue radiation as outlined. Arnulfo Kamara MD [facility] 07-11-2024 History of Present illness Narrative Radiation Oncology - On Treatment Review (OTR) Note PATIENT NAME: Sukhdeep Gamino PATIENT DIAGNOSIS: Prostate adenocarcinoma, initial PSA 7.9, biopsy Saint Gabriel score 4 + 5 = 9 (grade group 5), clinical stage T2c, N0, M0, status post robotic radical prostatectomy and bilateral pelvic lymph node dissection for 11/05/2023, Saint Gabriel 8 (4+4) pT3a pN0, with detectable and [...] Arnulfo Kamara MD documented in this encounter [facility] 07-04-2024 Note HNO ID: [id number] Author: Arnulfo KAMARA MD Service: ? Author Type: Physician Type: Progress Notes Filed: 07/11/2024 09:53 Note Text: Radiation Oncology - On Treatment Review (OTR) [...] 133/95 Pulse: 87 Resp: 18 Temp: 36.8 ?C (98.3 ?F) SpO2: 98% Weight: 86 kg (189 lb [...] Continue radiation as outlined. Arnulfo Kamara MD [facility] 07-04-2024 History of Present illness Narrative Radiation Oncology - On Treatment Review (OTR) Note PATIENT NAME: Sukhdeep Gamino PATIENT DIAGNOSIS: Prostate adenocarcinoma, initial PSA 7.9, biopsy Saint Gabriel score 4 + 5 = 9 (grade [...] Arnulfo Kamara MD documented in this encounter [facility] 06-27-2024 Note HNO ID: [id number] Author: Arnulfo KAMARA MD Service: ? Author Type: Physician Type: Progress Notes Filed: 06/27/2024 16:12 Note Text: Radiation Oncology - On Treatment Review (OTR) [...] 129/87 Pulse: 102 Resp: 16 Temp: 36.4 ?C (97.6 ?F) SpO2: 100% Weight: 86.5 kg (190 lb [...] Continue radiation as outlined. Arnulfo Kamara MD [facility] 06-27-2024 History of Present illness Narrative Radiation Oncology - On Treatment Review (OTR) Note PATIENT NAME: Sukhdeep Gamino PATIENT DIAGNOSIS: Prostate adenocarcinoma, initial PSA 7.9, biopsy Saint Gabriel score 4 + 5 = 9 (grade [...] Arnulfo Kamara MD documented in this encounter [facility] 06-23-2024 Nurse Note Sukhdeep Gamino presents in office today for: Lab Draw only . Ordering Provider: Jewel Kamara M.D. Test (s) ordered: CBC Method for obtaining blood: Phlebotomy was performed, accessing right antecubital vein. Needle removed intact. Dressing secured. Patient denies discomfort, dizziness, light-headedness or weakness and left the department without assist. Divina Braswell LPN [facility] 06-23-2024 Nurse Note Sukhdeep Gamino presents in office today for: Lab Draw only . Ordering Provider: Jewel Kamara M.D. Test (s) ordered: CBC Method for obtaining blood: Phlebotomy was performed, accessing right antecubital vein. Needle removed intact. Dressing secured. Patient denies discomfort, dizziness, light-headedness or weakness and left the department without assist. Divina Braswell LPN documented in this encounter [facility] 06-20-2024 Note HNO ID: [id number] Author: Arnulfo KAMARA MD Service: ? Author Type: Physician Type: Progress Notes Filed: 06/20/2024 16:27 Note Text: Radiation Oncology - On Treatment Review (OTR) [...] Continue radiation as outlined. Arnulfo Kamara MD [facility] 06-20-2024 History of Present illness Narrative Radiation Oncology - On Treatment Review (OTR) Note PATIENT NAME: Sukhdeep Gamino PATIENT DIAGNOSIS: Prostate adenocarcinoma, initial PSA 7.9, biopsy Christine score 4 + 5 = 9 (grade group 5), clinical stage T2c, N0, M0, status post robotic radical prostatectomy and bilateral pelvic lymph node dissection for 11/05/2023, Saint Gabriel 8 (4+4) pT3a pN0, with detectable and [...] Arnulfo Kamara MD documented in this encounter [facility] 06-15-2024 Note HNO ID: [id number] Author: Arnulfo KAMARA MD Service: ? Author Type: Physician Type: Progress Notes Filed: 06/15/2024 15:08 Note Text: Radiation Oncology - On Treatment Review (OTR) Note PATIENT NAME: Sukhdeep Gamino PATIENT DIAGNOSIS: Prostate adenocarcinoma, initial PSA 7.9, biopsy Christine score 4 + 5 = 9 (grade group 5), clinical stage T2c, N0, M0, status post robotic radical prostatectomy and bilateral pelvic lymph node dissection for 11/05/2023, Saint Gabriel 8 (4+4) pT3a pN0, with detectable and [...] Continue radiation as prescribed. Arnulfo Kamara MD [facility] 06-15-2024 History of Present illness Narrative Radiation Oncology - On Treatment Review (OTR) Note PATIENT NAME: Sukhdeep Gamino PATIENT DIAGNOSIS: Prostate adenocarcinoma, initial PSA 7.9, biopsy Saint Gabriel score 4 + 5 = 9 (grade group 5), clinical stage T2c, N0, M0, status post robotic radical prostatectomy and bilateral pelvic lymph node dissection for 11/05/2023, [place] Gabriel 8 (4+4) pT3a pN0, with detectable and [...] Arnulfo Kamara MD documented in this encounter [facility] 06-13-2024 Telephone encounter Note CBC order pending your approval. Divina Braswell RN [facility] 06-13-2024 Miscellaneous Notes CBC order pending your approval. Divina Braswell RN documented in this encounter [facility] 06-07-2024 Telephone encounter Note Images from the [...] to apply for free drug through the family practitioner patient assistance program (application signed - awaiting MD signature) If moving forward with Orgovyx, we need to address Major DRUG/DRUG Interaction Orgovyx/Coreg: Also sig clarification is needed. Orgovyx is initially given with a 360 mg loading dose on Day 1, followed by 120 mg once daily. For questions relating to this submission, please contact [facility] at [phone] [facility] Work Phone: 06-07-2024 Miscellaneous Notes Images from [...] to apply for free drug through the family practitioner patient assistance program (application signed - awaiting MD signature) If moving forward with Orgovyx, we need to address Major DRUG/DRUG Interaction Orgovyx/Coreg: Also sig clarification is needed. Orgovyx is initially given with a 360 mg loading dose on Day 1, followed by 120 mg once daily. For questions relating to this submission, please contact [facility] at [phone] documented in this encounter [facility] 06-06-2024 History of Present illness Narrative SUKHDEEP GAMINO [id number] 06/06/2024 [facility] Radiation Oncology Department SIMULATION NOTE DATE OF SIMULATION: 06/06/2024 THERAPIST: Cathy Berrios MACHINE: Soocial DIAGNOSIS: Malignant neoplasm of [id number] AREA: PROSTATE CONTRAST: None Consent in Epic: [...] CDT 44:54 PM documented in this encounter [facility] 06-06-2024 History of Present illness Narrative SUKHDEEP GAMINO [id number] 06/06/2024 [facility] Department of Radiation Oncology Treatment Planning [...] M.D. 1:49 AM documented in this encounter [facility] 06-06-2024 Note HNO ID: [id number] Author: Arnulfo KAMARA MD Service: ? Author Type: Physician Type: Progress Notes Filed: 06/07/2024 16:54 Note Text: SUKHDEEP GAMINO [id number] 06/06/2024 [facility] Radiation Oncology Department SIMULATION NOTE DATE OF SIMULATION: 06/06/2024 THERAPIST: Cathy Berrios MACHINE: Soocial DIAGNOSIS: Malignant neoplasm of [id number] AREA: PROSTATE CONTRAST: None Consent in Epic: [...] Electronically Signed Jewel Kamara M.D. / CDT :54 PM [facility] 06-06-2024 Note HNO ID: [id number] Author: Arnulfo KAMARA MD Service: ? Author Type: Physician Type: Progress Notes Filed: 06/14/2024 11:49 Note Text: SUKHDEEP GAMINO [id number] 06/06/2024 [facility] Department of Radiation Oncology Treatment Planning [...] and [facility]H. Electronically Signed Jewel Kamara M.D. 411:49 AM [facility] 05-23-2024 Telephone encounter Note Order faxed to [facility]. Roxy Armstrong RN [facility] 05-23-2024 Miscellaneous Notes Order faxed to [facility]. Roxy Armstrong RN Call received from [facility] going for MRI. 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 They need to get an order for XRay ORbits to make sure he does not have any metal. Please sign and we will fax to [facility]. Roxy Armstrong RN documented in this encounter [facility] 05-23-2024 Telephone encounter Note Call received from [facility] going for MRI. 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 They need to get an order for XRay ORbits to make sure he does not have any metal. Please sign and we will fax to [facility]. Roxy Armstrong RN [facility] 05-23-2024 Telephone encounter Note Order Signed. Roxy Armstrong RN [facility] 05-23-2024 Miscellaneous Notes Order Signed. Roxy Armstrong RN Please sign pended Creat for TB. Roxy Armstrong RN documented in this encounter [facility] 05-20-2024 Telephone encounter Note Please sign pended Creat for TB. Roxy Armstrong RN [facility] 05-19-2024 Note HNO ID: [id number] Author: Arnulfo KAMARA MD Service: ? Author Type: Physician Type: Progress Notes Filed: 05/19/2024 11:22 Note Text: Radiation Oncology - Prostate Cancer New Patient/Consult Note PATIENT NAME: Sukhdeep Gamino PATIENT REQUESTING PROVIDER: Katrina Saul CNP OTHER PROVIDERS: Dr. Alek Fatima, Dr. Erica Bah DIAGNOSIS: 63 year old male with prostate adenocarcinoma, initial PSA 7.9, biopsy Saint Gabriel score 4 + 5 = 9 (grade [...] any questions regarding this interpretation, please call [phone]. If you are unable to reach us at the number above, please feel [facility] to [facility] at [phone]. Results-Findings * * *Final Report* * * [...] SPECT 11/03/2023. -Pr (more content not included)... [facility] 05-19-2024 History of Present illness Narrative Radiation Oncology - Prostate Cancer New Patient/Consult Note PATIENT NAME: Sukhdeep Gamino PATIENT REQUESTING PROVIDER: Katrina Saul, ELECTRIC TRUCKER OTHER PROVIDERS: Dr. Alek Fatima, Dr. Erica Bah DIAGNOSIS: 63 year old male with prostate adenocarcinoma, initial PSA 7.9, biopsy Saint Gabriel score 4 + 5 = 9 (grade [...] any questions regarding this interpretation, please call [phone]. If you are unable to reach us at the number above, please feel free to contact [facility] at [phone]. Results-Findings * * *Final Report* * * [...] * Prostate Cancer Grade: Grade Group 5 (Saint Gabriel score 4 + 5) * PSA: 0.18 [...] ^Rfl: fluticasone (FLONASE) 50 mcg/actuation nasal spray^1 Grover.^Disp: ^Rfl: iv contrast (will be provided with [...] ASSESSMENT/PLAN: Prostate adenocarcinoma, initial PSA 7.9, biopsy Saint Gabriel score 4 + 5 = 9 (grade group 5), clinical stage T2c, N0, M0, status post robotic radical prostatectomy and bilateral pelvic lymph node dissection for 11/05/2023, Saint Gabriel 8 (4+4) pT3a pN0, with detectable and [...] Signed by: Arnulfo Kamara MD cc: Alek Donaldson Alloyd [address] [place], [place] [id number] Katrina Warner [address] [place] [id number] documented in this encounter [facility] 05-17-2024 Telephone encounter Note Requested Prescriptions Pending Prescriptions Disp Refills Tadalafil (CIALIS) 5 mg tablet 90 tablet 1 Sig: Take 1 tablet by mouth once daily. [facility] 05-17-2024 Miscellaneous Notes Requested Prescriptions Pending Prescriptions Disp Refills Tadalafil (CIALIS) 5 mg tablet 90 tablet 1 Sig: Take 1 tablet by mouth once daily. documented in this encounter [facility] 05-12-2024 History of Present illness Narrative [...] 1330 PATIENT DISCHARGED TO: Ambulatory patient, left [place] department area. A Diagnostic radioactive procedure has taken place, with no further precautions necessary other than routine body substance precautions. More information regarding radiation safety can be found using this link: [email or web address] [email or web address]%20Nucl ear%20Medicine%[email or web address] SIGNATURE: RT Fiorella(R) PATIENT NAME: Sukhdeep Gamino DATE: May 12, 2024 TIME: 2:08 PM PAGER/CONTACT #: documented in this encounter [facility] 05-12-2024 Note HNO ID: [id number] Author: ZENAIDA WINTER RN Service: ? Author [...] DATE: May 12, 2024 TIME: 1:37 PM [facility] 05-12-2024 Note HNO ID: [id number] Author: MAKENZIE REYNOSO RT(R) Service: ? Author [...] 1330 PATIENT DISCHARGED TO: Ambulatory patient, left [place] department area. A Diagnostic radioactive procedure has taken place, with no further precautions necessary other than routine body substance precautions. More information regarding radiation safety can be found using this link: [email or web address] [email or web address]-% 20Diagnostic%20Nuclear%20Medicine %20Procedures.pdf SIGNATURE: RT Fiorella(Betty) PATIENT NAME: Sukhdeep Gamino DATE: May 12, 2024 TIME: 2:08 PM PAGER/CONTACT #: [facility] 04-28-2024 Telephone encounter Note Pharmacist: Will you please enter Eligard 45mg orders and route to Dr. Kamara? Eligard and SIM to be scheduled after [facility] PET which is pending insurance approval. Thanks Divina Braswell RN [facility] 04-28-2024 Miscellaneous Notes Pharmacist: Will you please enter Eligard 45mg orders and route to Dr. Kamara? Eligard and SIM to be scheduled after [facility] PET which is pending insurance approval. Thanks Divina Braswell RN documented in this encounter [facility] 04-28-2024 Telephone encounter Note [facility] Comments for Chimney Mechanic: Joseph Gaming the patient need anesthesia: No [...] F-18 flotufolastat,18F flotufolastat Posluma GA68 [facility] PET 79695/LOCAMETZ (Gallium GA-68 Gozetotide) (6 mCi) A9800 - Posluma (Flotufolastat F18) (8mCi), [id number] - Region Auth#: Date Range: NPI: Member ID: Medicare Site/Contact: Case/Ref#: Notes: Route to or Requested Scheduling Pool: P PET SUPERINTENDENT MAINTENANCE [facility], P [facility] CLERICAL POOL([place]), Naomi RUIZ HOSPICE OFFICE COORDINATOR [facility] 04-28-2024 Miscellaneous Notes PSMA Comments for Chimney Mechanic: Joseph Gaming the patient need anesthesia: No [...] F-18 flotufolastat,18F flotufolastat Posluma GA68 [facility] PET 21751/LOCAMETZ (Gallium GA-68 Gozetotide) (6 mCi) A9800 - [place] (Flotufolastat F18) (8mCi), [id number] - Region Auth#: Date Range: NPI: Member ID: Medicare Site/Contact: Case/Ref#: Notes: Route to or Requested Scheduling Pool: P PET SUPERINTENDENT MAINTENANCE P [facility] CLERICAL POOL([facility], Naomi RUIZ HOSPICE OFFICE COORDINATOR This form is used for MAIN CAMPUS APPOINTMENTS ONLY. Is this request for a Main [place] PET scan appointment? Yes: Music Librarian: OSWALDO Ramirez Requesting Person (Last Name, First Name): Sherif Area Code + Phone/Pager: [phone] Who do we call to schedule this appointment? Other Contact: [facility] in [place], Route to Regine Reynoso to schedule. Requesting Staff [place] Area Code + Phone/Pager: [phone] PET Orders (A delay in scheduling will [...] P COORD REVIEW documented in this encounter [facility] 04-28-2024 Nurse Note Radiation Therapy - Patient Education Note PATIENT NAME: Sukhdeep Gamino PATIENT April 28, 2024 [facility] FACILITY/LOCATION: [facility] READINESS TO LEARN Cognitive Ability: Alert [...] need for social work, van service, and network engineering advisor. Was PED reviewed? No Patient has an Onbody or Implanted device: No Signed by: Divina Braswell RN [facility] 04-28-2024 Nurse Note Radiation Therapy - Patient Education Note PATIENT NAME: Sukhdeep Gamino PATIENT April 28, 2024 [facility] FACILITY/LOCATION: [facility] READINESS TO LEARN Cognitive Ability: Alert [...] need for social work, van service, and network engineering advisor. Was PED reviewed? No Patient has an Onbody or Implanted device: No Signed by: Divina Braswell RN documented in this encounter [facility] 04-28-2024 Telephone encounter Note This form is used for MAIN CAMPUS APPOINTMENTS ONLY. Is this request for a Main [place] PET scan appointment? Yes: Music Librarian: OSWALDO Ramirez Requesting Person (Last Name, First Name): [place] Area Code + Phone/Pager: [phone] Who do we call to schedule this appointment? Other Contact: [facility] PET in [place], Route to [facility] to schedule. Requesting Staff [place] Area Code + Phone/Pager: [phone] PET Orders (A delay in scheduling will [...] Send requests to P COORD REVIEW [facility] 04-28-2024 History of Present illness Narrative Radiation Oncology - Prostate Cancer New Patient/Consult Note PATIENT NAME: Sukhdeep Gamino PATIENT REQUESTING PROVIDER: Katrina Saul CNP OTHER PROVIDERS: Dr. Alek Fatima, Dr. Erica Bah DIAGNOSIS: 63 year old male with prostate adenocarcinoma, initial PSA 7.9, biopsy Christine score 4 + 5 = 9 (grade group 5), clinical stage T2c, N0, M0, status post robotic radical prostatectomy and bilateral pelvic lymph node dissection for 11/05/2023, Saint Gabriel 8 (4+4) pT3a pN0, with detectable and [...] ultrasound-guided biopsy on 08/25/2023, with finding of Saint Gabriel grade group 5 (4+5) from the left [...] A. Prostate, radical prostatectomy: - Prostatic adenocarcinoma, Saint Gabriel score 4+4=8 with tertiary pattern 5, Grade [...] fluticasone (FLONASE) 50 mcg/actuation nasal spray 1 Grover. PAST MEDICAL HISTORY Diagnosis Date Asthma Atrial [...] by: Arnulfo Kamara MD cc: Alek Fatima [address] [place] [address] Katrina Warner [address] [place] [address] documented in this encounter [facility] 04-28-2024 Note HNO ID: [id number] Author: Arnulfo KAMARA MD Service: ? Author Type: Physician Type: Progress Notes Filed: 05/04/2024 14:07 Note Text: Radiation Oncology - Prostate Cancer New Patient/Consult Note PATIENT NAME: Sukhdeep Gamino PATIENT REQUESTING PROVIDER: Katrina Saul CNP OTHER PROVIDERS: Dr. Alek Fatima, Dr. Erica Bah DIAGNOSIS: 63 year old male with prostate adenocarcinoma, initial PSA 7.9, biopsy Christine score 4 + 5 = 9 (grade group 5), clinical stage T2c, N0, M0, status post robotic radical prostatectomy and bilateral pelvic lymph node dissection for 11/05/2023, Saint Gabriel 8 (4+4) pT3a pN0, with detectable and [...] A. Prostate, radical prostatectomy: - Prostatic adenocarcinoma, Saint Gabriel score 4+4=8 with tertiary pattern 5, Grade [...] (1-2 pads) 1 (more content not included)... [facility] 04-28-2024 Nurse Note AUA= 2 Pacemaker/Defibrillator?N Previous Cancer(s)?N Previous Radiation?N Lupus/Scleroderma?N On body monitoring device?N [facility] 04-28-2024 Nurse Note AUA= 2 Pacemaker/Defibrillator?N Previous Cancer(s)?N Previous Radiation?N Lupus/Scleroderma?N On body monitoring device?N documented in this encounter [facility] 04-28-2024 Note Education (RADTSA) SUKHDEEP GAMINO ([id number]) 1960 M Date Time Provider Department 04/28/24 DIVINA BRASWELL Reason for Visit: Patient Education [91] Visit Notes: >> Divina Braswell LPN [facility] Apr 28, 2024 3:21 PM Status: Signed Radiation Therapy - Patient Education Note PATIENT NAME: Sukhdeep Gamino PATIENT April 28, 2024 [facility] FACILITY/LOCATION: [facility] READINESS TO LEARN Cognitive Ability: Alert [...] need for social work, van service, and network engineering advisor. Was PED reviewed? No Patient has an [...] fluticasone (FLONASE) 50 mcg/actuation nasal spray 1 Grover. Encounter Status:Closed by DIVINA BRASWELL on 04/28/24 [facility] 04-20-2024 History of Present illness Narrative Subjective Sukhdeep Gamino is a 63 y.o. male who presents for the following: Follow-up. Location: right restorationism Date of biopsy: 03/01/2024 Diagnosis: Actinic keratosis with adnexal extensions All pertinent medical history, medications, and allergies were reviewed. General Exam: alert , oriented to person, place, and time , normal affect, well appearing Unaccompanied A focused exam completed based on patient reported problems, see below: 1. Actinic keratosis (3) Dorsum of Nose, Mid Forehead, Right [place] Erythematous scaly papules Patient was counseled regarding [...] Visit: as scheduled documented in this encounter [facility] 04-07-2024 History of Present illness Narrative VIRTUAL VISIT PROGRESS NOTE This is a virtual visit using [employer] Video Visit. It required patient-provider interaction for the medical decision making as documented below. I have communicated my name and active licensure. The patient's identity and physical location were verified at the time of this visit. Either the patient or their legal financial representative has been informed of the risks [...] A. Prostate, radical prostatectomy: - Prostatic adenocarcinoma, Saint Gabriel score 4+4=8 with tertiary pattern 5, Grade [...] fluticasone (FLONASE) 50 mcg/actuation nasal spray 1 Grover. No current facility-administered medications for this visit. [...] which included preparing to see the patient, [id number] patient care, completing clinical documentation, counseling and educating the patient/family/caregiver, and ordering medications, tests, or procedures Ktarina Warner APRN.CNP documented in this encounter [facility] 04-07-2024 Note HNO ID: [id number] Author: KATRINA WARNER APRN.CNP Service: ? Author Type: Nurse Practitioner Type: Progress Notes Filed: 04/07/2024 17:13 Note Text: VIRTUAL VISIT PROGRESS NOTE This is a virtual visit using [employer] Video Visit. It required patient-provider interaction for the medical decision making as documented below. I have communicated my name and active licensure. The patient's identity and physical location were verified at the time of this visit. Either the patient or their legal financial representative has been informed of the risks [...] A. Prostate, radical prostatectomy: - Prostatic adenocarcinoma, Saint Gabriel score 4+4=8 with tertiary pattern 5, Grade [...] fluticasone (FLONASE) 50 mcg/actuation nasal spray 1 Grover. No current facility-administered medications for this visit. [...] demand dosing where (more content not included)... [facility] 12-30-2023 History of Present illness Narrative VIRTUAL VISIT PROGRESS NOTE This is a virtual visit using [employer] Video Visit. It required patient-provider interaction for the medical decision making as documented below. I have communicated my name and active licensure. The patient's identity and physical location were verified at the time of this visit. Either the patient or their legal financial representative has been informed of the risks and benefits of -- and alternatives to -- treatment through a remote evaluation and consents to proceed with the evaluation remotely. Persons Present: patient Chief Complaint/Reason: follow up Clinic note from 11/18/2023 copied and updated. HPI: Sukhdeep Gmaino is [...] A. Prostate, radical prostatectomy: - Prostatic adenocarcinoma, Saint Gabriel score 4+4=8 with tertiary pattern 5, Grade [...] fluticasone (FLONASE) 50 mcg/actuation nasal spray 1 Grover. No current facility-administered medications for this visit. [...] which included preparing to see the patient, [id number] patient care, completing clinical documentation, counseling and educating the patient/family/caregiver, and ordering medications, tests, or procedures Katrina Warner APRN.JC documented in this encounter [facility] 12-30-2023 Note HNO ID: [id number] Author: KATRINA WARNER APRN.CNP Service: ? Author Type: Nurse Practitioner Type: Progress Notes Filed: 12/30/2023 17:24 Note Text: VIRTUAL VISIT PROGRESS NOTE This is a virtual visit using [employer] Zoom Video Visit. It required patient-provider interaction for the medical decision making as documented below. I have communicated my name and active licensure. The patient's identity and physical location were verified at the time of this visit. Either the patient or their legal financial representative has been informed of the risks [...] A. Prostate, radical prostatectomy: - Prostatic adenocarcinoma, Saint Gabriel score 4+4=8 with tertiary pattern 5, Grade [...] fluticasone (FLONASE) 50 mcg/actuation nasal spray 1 Grover. No current facility-administered medications for this visit. [...] -Follow up virtua (more content not included)... [facility] 12-29-2023 Note [facility] Cardiology Clinic Note Chief Complaint: Patient here for 1 year follow up CAD, chronic systolic heart failure, and hypertension. Had routine labs w/ lipid last January 2023. Had echo last month at [facility]. HPI: Sukhdeep Gamino is a 63 [...] thromboembolic prophylaxis given his atrial fibrillation and [id number] score; given significant bruising and ecchymosis, he can safely stop aspirin and continue on Coumadin alone given stable coronary artery disease Treat noncardiac comorbidities as clinically appropriate Return to clinic in 1 year or sooner should problems arise Adriana Huff MD, MPH, [facility], [facility], [facility] Interventional Cardiology Pager Email: [email or web address] 11-18-2023 History of Present illness Narrative VIRTUAL VISIT PROGRESS NOTE This is a virtual visit using [employer] Zoom Video Visit. It required patient-provider interaction for the medical decision making as documented below. I have communicated my name and active licensure. The patient's identity and physical location were verified at the time of this visit. Either the patient or their legal financial representative has been informed of the risks [...] A. Prostate, radical prostatectomy: - Prostatic adenocarcinoma, Saint Gabriel score 4+4=8 with tertiary pattern 5, Grade [...] fluticasone (FLONASE) 50 mcg/actuation nasal spray 1 Grover. bicalutamide (CASODEX) 50 mg tablet Take 1 [...] test, echo, and EKG) to his local knockup worker at [phone] per patient request There are no Patient Instructions on file for this visit. I spent a total of 45 minutes on the date of the service which included preparing to see the patient, nklm-ti-rhwm patient care, completing clinical documentation, counseling and educating the patient/family/caregiver, and ordering medications, tests, or procedures Katrina Warner APRN.ELECTRIC TRUCKER documented in this encounter [facility] 11-16-2023 Miscellaneous Notes Returned call to Mr. Gamino regarding incontinence. Given directions on how to properly do kegel exercises and how many. Handout emailed to him. He will call the office with any further questions or concerns. Casi Rocha RN, BSN Triage Nurse Department of Urology [facility] documented in this encounter [facility] 11-12-2023 Miscellaneous Notes Spoke to Mr. Gamino. Advised to stop cipro. Keflex has been called in for him. He can take antihistamine as advised. Patient verbalized understanding. All questions answered. Casi Rocha RN, BSN Triage Nurse Department of Urology [facility] documented in this encounter [facility] 11-12-2023 Miscellaneous Notes Spoke to Mr. [...] RN, BSN Triage Nurse Department of Urology [facility] documented in this encounter [facility] 11-10-2023 Miscellaneous Notes Notified patient that per Dr. Bah, it is okay for him to take his short course of cipro for his padgett catheter. Pt verbalized understanding. All questions answered. Casi Rocha RN, BSN Triage Nurse Department of Urology [facility] documented in this encounter [facility] 11-03-2023 History of Present illness Narrative [facility] PRE-OP NOTE Sukhdeep Gamino is a 62 year old male. Pre-op Date: November 03, 2023 Date of Procedure: 11/05/2023 Does the patient have an active COVID-19 test in [facility]? N/A Procedure/Surgery: RALP Diagnosis: prostate [...] scheduled: Yes Consent Signed: Consent not in [facility]. Surgeon notified via staff mesage. DOS Orders Placed and Signed: Yes. Pre-op H&P Done by Impact: Yes. PATIENT INSTRUCTIONS FOR [...] optimally prepared for surgery pending LABS. John Mi PA-C documented in this encounter [facility] 11-03-2023 Instructions Haily Nunez PA-C - 11/03/2023 1:10 PM EDT PATIENT PREOPERATIVE INSTRUCTIONS Roosevelt Bah MD has scheduled you for your procedure at this surgery center: [facility] Scheduling Office: [phone] [address] [place] [address]. Please read below carefully for your personalized [...] call the Thursday before. Your surgeon s batch plant operator will tell you what time to call the office. - If you have not reached the departmental batch plant operator by 5 P.M., call [phone] after 5 P.M. the day before your surgery. Please be aware that emergency situations arise, which may delay or change your surgical time. If this happens, we will notify you as soon as possible and regret any inconvenience. If you already have an Advance Directive, please fax a copy to [phone] or email to for it to be [...] Haily Nunez PA-C documented in this encounter [facility] 11-03-2023 History and physical note Images [...] any new or worsening cardiac symptoms. Follows knockup worker in [place] last OV 01/2023. Reports compliance to medication. Denies any history of stents, CABG, reports [facility] x3, most recent ~2017. Recent [...] Pravastatin Paroxysmal atrial fibrillation (HCC) Assessment: Follows knockup worker Dr. Lozano , last OV 01/2023. Reports [...] have a large neck STOP-Bang Score: 3 [id number] Score: Age: <65 Sex: male CHF history: Yes Hypertension history: Yes Stroke/TIA/thromboembolism history: No Vascular disease history: Yes Diabetes history: No [id number] Score: 3 ARISCAT Score: Age: 51-80 Preoperative [...] NERVE SPARING (N/A) at the request of Roosevelt Dickinson MD for consultation. My final recommendation [...] fevers. Neurological: No history of TIA's, stroke, AIRCRAFT ENGINE MECHANIC OVERHAUL tumor, impaired sensorium, hemiplegia, paraplegia or quadraplegia. [...] and hypertension Patient's last office visit with knockup worker, Dr. Huff, was 02/2024. The following tests and/or procedures were performed: cardiac catheterization and echocardiogram. Negative for: abdominal aortic aneurysm, AICD/PPM, angina, arrhythmia, chest pain, congenital heart defect, DVT/PE, recent MO, murmur/valvular heart disease, PTCA, PVD, open heart [...] fluticasone (FLONASE) 50 mcg/actuation nasal spray 1 Grover. Taking Yes bicalutamide (CASODEX) 50 mg tablet [...] 364 QTC Calculation (Bazett) 462 Calculated R Section -36 Calculated T Section 5 Impression ATRIAL FIBRILLATION LEFT AXIS DEVIATION AGE UNDETERMINED ABNORMAL ECG Recent Results (from the past 30610 hour(s)) ECHO Collection Time: 11/03/23 3:14 PM [...] PM PAGER/CONTACT #: documented in this encounter [facility] 11-03-2023 History of Present illness Narrative [...] PATIENT PRESENTS WITH AN IMPLANTABLE OR ATTACHED WARE CLEANER: No CREATININE: No results found for: CREAT , EGFROTH , EGFRAA P.O.C.T. RESULTS: N/A November 03, [address] PERFORMED: No IV SITE: Ambulatory: A peripheral IV was started in the Left antecubital site with a Angio cath: 22 gauge. POST EXAM PIV STATUS: Discontinued PROCEDURE TYPE: NM Stress: 11.8 mCi Ff38g-Pkqbhon was administered IV for Rest Imaging at 0915 by carolyn gomez. 31.2 mCi [id number] was administered IV for Stress Imaging at 1005 by NEMESIO. PATIENT DISCHARGED TO: Ambulatory patient, left [place] department area. A Diagnostic radioactive procedure has taken place, with no further precautions necessary other than routine body substance precautions. More information regarding radiation safety can be found using this link: [email or web address] [email or web address]-%20Diagnostic%20Nucl ear%20Medicine%20Procedures.pdf SIGNATURE: RT Channing(R) PATIENT [...] ALLERGIES: Reviewed and unchanged MEDICATIONS REVIEWED BY: Account Manager Employee Benefits PROCEDURE TYPE: NM STRESS: 0.4 mg of Lexiscan was administered IV at 1005 by Rosario Cazares RN . Reversal agent used: None. Expiration date: 06/2025 Lot#: [id number] IV SITE: Ambulatory: A Saline lock was inserted per protocol POST EXAM PIV STATUS: Discontinued PATIENT DISCHARGED TO: Ambulatory patient, left [place] department area. A Diagnostic radioactive procedure has taken place, with no further precautions necessary other than routine body substance precautions. More information regarding radiation safety can be found using this link: [email or web address] [email or web address]-%20Diagnostic%20Nucl ear%20Medicine%20Procedures.pdf SIGNATURE: Rosario Cazares RN PATIENT NAME: Sukhdeep Gamino DATE: November 03, 2023 TIME: 10:10 AM PAGER/CONTACT #: documented in this encounter [facility] 10-02-2023 History of Present illness Narrative Images from the original note were not included. Referring Provider: Chadd Weeks Chief Complaint: Prostate cancer HPI Sukhdeep Gamino is a 62 year old male with history of elevated PSA with recent diagnosis of prostate cancer. Most recent PSA 7.8. Underwent prostate biopsy that demonstrated Christine 4+5=9, GG5, 90% highest involvement. Bone scan [...] very high risk prostate cancer (PSA 7.8, Saint Gabriel 4+6=9, 90% high involvement) with negative bone [...] Assessment : prostate CA Plan : above Roosevelt Bah MD documented in this encounter [facility] 09-02-2023 Miscellaneous Notes PT is OON Hindu Self pay DO NOT SCHEDULE TILL APPROVED, [facility] referral [id number], Questions contact [email or web address] PreAccess obtained approval OK to schedule Authorization number: PSMA Authorization date range: PSMA Primary Insurance: Hindu Self pay OON Diagnosis: Prostate Cancer C61 [...] No - Schedule as requested Comments for Chimney Mechanic: Joseph ROUTE TO SCHEDULERS POOL P PET SUPERINTENDENT MAINTENANCE MC or P NM SPECIAL STUDIES MC This form is used for MAIN CAMPUS APPOINTMENTS ONLY. Is this request for a [facility] [place] PET scan appointment? Yes: Music Librarian: Geraldine Retana Requesting Person Dr Weeks: Area Code + Phone/Pager: [phone] Who do we call to schedule this appointment? Other Contact: [facility] please route to Regine Angeline in [place] for scheduleing pt is approved through [facility] Requesting Staff Dr weeks Area Code + Phone/Pager: [phone] PET Orders (A delay in scheduling will result if the orders are not present at time of review): External. Has the External Clinical Order been scanned into Cliqset? Yes ADDITIONAL ACTION MAY BE REQUIRED IF [...] COORD REVIEW MC documented in this encounter [facility] 08-31-2023 Hospital Discharge instructions Patient Education [...] under a microscope. This is called the Saint Gabriel score and the total score can range from 6 10, indicating how likely it is that the cancer will spread (metastasize) to other parts of the body. The higher the score, the greater the likelihood that the cancer will spread. Christine 6 or lower: This indicates that the cancer cells look similar to normal prostate cells (well differentiated). Saint Gabriel 7: This indicates that the cancer cells [...] stress of having cancer. General instructions Take kusp-crd-glfcqws and prescription medicines only as told by your health care provider. If you have to go to the hospital, notify your cancer specialist (oncologist). Keep all follow-up visits. This is important. Where to find more information [employer] Cancer Society: www.cancer.org Armenian Society of Clinical Oncology: www.cancer.net National Cancer [place]: www.cancer.gov Contact a health care provider if: [...] provider. Document Revised: 10/16/2021 Document Reviewed: 10/16/2021 4Home Patient Education 2022 [employer] Follow Up Care 08/10/2023 12:37:56 With:MICKY GARRISON, Chadd Hernández, URL Address: [facility] [address] , [place] [address]- [phone] When: Unknown Comments:f/u pending results of PSMA and bone scans [facility] Ankush 08-26-2023 Evaluation + Plan note Future Scheduled TestsPathology Tissue Exam 08/26/23Pathology Tissue Exam 08/26/23Pathology Tissue Exam 08/26/23Pathology Tissue Exam 08/26/23Pathology Tissue Exam 08/26/23Pathology Tissue Exam 08/26/23Pathology Tissue Exam 08/26/23Pathology Tissue Exam 08/26/23Pathology Tissue Exam 08/26/23Pathology Tissue Exam 08/26/23Pathology Tissue Exam 08/26/23Pathology Tissue Exam 08/26/23 [facility] 08-25-2023 Hospital Discharge instructions Patient Education 08/25/2023 [...] discomfort near your rectum, especially while sitting. [place]-colored urine due to small amounts of blood in your urine. A burning feeling while urinating. Blood in your stool (feces) or bleeding from your rectum. Blood in your semen. Follow these instructions at home: Medicines Take qjub-kcn-skngjyo and prescription medicines only as told by [...] provider. Document Revised: 01/13/2022 Document Reviewed: 01/13/2022 4Home Patient Education 2022 [employer]. Follow Up Care 08/17/2023 15:34:17 With:MICKY GARRISON, Chadd Hernández, URL Address: [facility] [address] , [place] [address]- [phone] When: Unknown Comments:review path on 09/11/23 [facility] Joseph 08-10-2023 Note Chief Complaint Referral [...] 0.4mg qd. Rx sent to [facility] in [place]. Discussed the medication side effects, and the [...] inguinal hernia Follow-up With When Contact Information MICKY GARRISON, Chadd Hernández, URL [facility] [address], [place] [address] [phone] Additional Instructions: sched TRUS/bx Patient Education Transrectal Ultrasound-Guided Prostate Biopsy, Care After Transrectal Ultrasound-Guided Prostate Biopsy Radha Heredia, personally scribed for Dr. Weeks on 08/10/2023 12:29:36. . Documentation recorded by the [place] rivera (more content not included)... [facility] Comment on above: Result Comment: Elec tronically Signed By: Chadd WEEKS MD\.br\Date and Time Signed: 08/10/23 12:31 EST\.br\Electronically Co-Signed By: Radha Balderas.br\Date and Time Co-Signed: 08/10/23 12:30 EST 08-10-2023 [...] discomfort near your rectum, especially while sitting. [place]-colored urine due to small amounts of blood in your urine. A burning feeling while urinating. Blood in your stool (feces) or bleeding from your rectum. Blood in your semen. Follow these instructions at home: Medicines Take wukx-nle-nrayhxn and prescription medicines only as told by [...] provider. Document Revised: 01/13/2022 Document Reviewed: 01/13/2022 4Home Patient Education 2022 [employer]. 08/10/2023 12:27:58 Transrectal Ultrasound-Guided Prostate Biopsy Transrectal [...] including vitamins, herbs, eye drops, creams, and ysof-xst-mgiyjyz medicines. Any problems you or family members [...] provider tells you to take them. Taking gqbs-lbx-qdqoetl medicines, vitamins, herbs, and supplements. General instructions [...] provider. Document Revised: 01/13/2022 Document Reviewed: 01/13/2022 4Home Patient Education 2022 [employer]. Follow Up Care 04/15/2023 08:43:29 With:MICKY GARRISON, Chadd Hernández, URL Address: [facility] [address], [place] [address] [phone] When: Unknown Comments:sched TRUS/bx [facility] 06-03-2021 History of Present illness Narrative Chief [...] advised to discontinue aspirin, NSAIDs, and specific herbals/kjdy-dbj-heqspwm's preprocedure. Patient has been advised on preoperative [...] at acceptable cardiac risk based on current [place] College of Cardiology/Armenian Heart Association (ACC/AHA) guidelines on zehra-operative cardiovascular evaluation and management of patient's undergoing non-cardiac surgery. Patient actively follows with knockup worker. Have requested correspondence with patient's knockup worker for additional risk stratification. Addition of requested [...] cardiac enzymes/EKGs as needed. Correspondence with patient's knockup worker to assure optimization for surgery and obtain [...] he has had 2 doses of the [employer] COVID-19 vaccine BMI of 27.- patient will follow up with their primary care physician for weight loss management and lifestyle modification. Patient is at intermediate risk/probability for obstructive sleep apnea based on NASRIN screening questionnaire. Patient should be monitored via [place] standard postop NASRIN protocol least continuous pulse [...] to go right total hip replacement at [facility] scheduled for June 26, 2021. Internal Medicine has been consulted for preoperative medical risk stratification. Please see below regarding the status of active medical conditions and assessment and plan for preoperative medical risk stratification. MEDICAL ILLNESSES : 1. Osteoarthritis involving the right hip as above 2. Hypertension diagnosed in 2019 managed by his primary care physician and knockup worker 3. Chronic atrial fibrillation diagnosed in 2008. He reports undergoing previous cardioversion at the time of his initial diagnosis but reverted to A. Fib. He denies any history of stroke or atheroembolic phenomena. He is maintained on chronic warfarin 4. Coronary artery disease. Apparently noted to be nonobstructive based upon initial LHC in 2008. Patient states he underwent more recent updated LHC at [facility] in [facility]. He reports he was noted to have some mild disease but did not require any percutaneous intervention or stents. 5. Congestive heart failure. Patient was initially diagnosed with CHF in 2008 requiring hospitalization associate with underlying A. Fib. He now reports chronic systolic heart failure being treated by his knockup worker and maintained on Entresto and Carvedilol. He [...] transfusions No Previous Transfusion Related Reactions No Hindu Reasons To Avoid Blood Transfusions No Personal [...] occasional PETERSON. Positive hypertension. Chronic A. fib. Returns Clerk is Dr. Adriana Huff is most recently seen by nurse practitioner April 12, 2021. Patient reports he is undergone 2 previous heart caths one in 2008 and more recently April 2021. Per his description both showed nonobstructive CAD. 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 He believes his most recent ejection fraction [...] RESULTS AND/OR RECORDS REVIEWED OR REQUESTED AT [facility] : Cardiac clearance requested. Copies of most recent echocardiogram and heart cath requested A copy of this report has been made available to the referring physician in the hospital's EMR and/or by being faxed to the surgeon's office/surgery center. Yohan Johnson MD documented in this encounter [facility] Evaluation + Plan note Future Appointments Appointment Date:09/11/2023 10:30:00 AM Scheduled Provider:Chadd WEEKS MD Location:[facility] Appointment Type:URO Office Visit [facility] Evaluation note Diagnosis Pain Generalized pain [facility]No assessment information availableK[facility] Work Phone: Evaluation note* Diagnosis Screening for genitourinary condition Screening for other and unspecified genitourinary condition documented in this encounter [facility] note* Diagnosis Malignant neoplasm of prostate (HCC)- Primary Malignant neoplasm of prostate documented in this encounter [facility] note* Diagnosis Congestive heart failure, unspecified HF chronicity, unspecified heart failure type (HCC)- Primary [facility]* Diagnosis Pre-op testing- Primary Preoperative examination, unspecified Prostate cancer (HCC) Malignant neoplasm of prostate Prostate disease Unspecified disorder of prostate Malignant neoplasm of prostate (HCC) Malignant neoplasm of prostate documented in this encounter [facility] note* Diagnosis Malignant neoplasm of prostate (HCC) Malignant neoplasm of prostate Malignant neoplasm of prostate (HCC) Malignant neoplasm of prostate documented in this encounter [facility] note* Diagnosis Pre-op evaluation- Primary Preoperative [...] neoplasm of prostate [facility]* Diagnosis Screening for genitourinary condition Screening for other and unspecified genitourinary condition documented in this encounter [facility] note* Diagnosis Prostate cancer (HCC)- Primary Malignant neoplasm of prostate documented in this encounter [facility] note* Diagnosis Prostate cancer (HCC)- Primary Malignant neoplasm of prostate PREETI (stress urinary incontinence), male Stress incontinence, male documented in this encounter [facility] note* Diagnosis Encounter for follow-up surveillance of prostate cancer- Primary Unspecified follow-up examination History of prostate cancer Personal history of malignant neoplasm of prostate PREETI (stress urinary incontinence), male Stress incontinence, male 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 Diagnosis Pre-op evaluation- Primary Preoperative examination, [...] of prostate [facility] Diagnosis Pre-op evaluation- Primary Preoperative examination, [...] of prostate [facility] Diagnosis Pre-op evaluation- Primary Preoperative examination, [...] of prostate [facility] Diagnosis Pre-op evaluation- Primary Preoperative examination, [...] of prostate [facility] Diagnosis Pre-op evaluation- Primary Preoperative examination, [...] of prostate [facility] Diagnosis Pre-op evaluation- Primary Preoperative examination, [...] of prostate [facility] Diagnosis Pre-op evaluation- Primary Preoperative examination, [...] of prostate [facility] Diagnosis Pre-op evaluation- Primary Preoperative examination, [...] of prostate [facility] Diagnosis Pre-op evaluation- Primary Preoperative examination, [...] of prostate [facility] Diagnosis Pre-op evaluation- Primary Preoperative examination, [...] of prostate documented in this encounter [facility] note* Diagnosis Pre-op evaluation- Primary Preoperative [...] of prostate documented in this encounter [facility] note* Diagnosis Pre-op evaluation- Primary Preoperative [...] of prostate documented in this encounter [facility] note* Diagnosis Pre-op evaluation- Primary Preoperative [...] of prostate documented in this encounter [facility] note* Diagnosis Pre-op evaluation- Primary Preoperative [...] of prostate documented in this encounter [facility] note* Diagnosis Actinic keratosis- Primary [facility] Diagnosis Pre-op evaluation- Primary Preoperative examination, [...] of prostate documented in this encounter [facility] note* Diagnosis Pre-op evaluation- Primary Preoperative examination, unspecified Malignant neoplasm of prostate (HCC) Malignant neoplasm of prostate Cardiomyopathy in diseases classified elsewhere (HCC) Chronic ischemic heart disease Chronic ischemic heart disease, unspecified Chronic systolic (congestive) heart failure (HCC) Essential hypertension Unspecified essential hypertension Mixed hyperlipidemia Paroxysmal atrial fibrillation (HCC) Atrial fibrillation Dysuria- Primary [facility] Diagnosis Pre-op evaluation- Primary Preoperative examination, [...] of prostate [facility] Diagnosis Pre-op evaluation- Primary Preoperative examination, [...] of prostate [facility] Diagnosis Pre-op evaluation- Primary Preoperative examination, unspecified Malignant neoplasm of prostate (HCC) Malignant neoplasm of prostate Cardiomyopathy in diseases classified elsewhere (HCC) Chronic ischemic heart disease Chronic ischemic heart disease, unspecified Chronic systolic (congestive) heart failure (HCC) Essential hypertension Unspecified essential hypertension Mixed hyperlipidemia Paroxysmal atrial fibrillation (HCC) Atrial fibrillation Malignant neoplasm of prostate (HCC)- Primary Malignant neoplasm of prostate Non-recurrent unilateral inguinal hernia without obstruction or gangrene documented [facility] this [facility] Diagnosis Pre-op evaluation- Primary Preoperative examination, [...] of prostate [facility] Diagnosis Pre-op evaluation- Primary Preoperative examination, unspecified Malignant neoplasm of prostate (HCC) Malignant neoplasm of prostate Cardiomyopathy in diseases classified elsewhere (HCC) Chronic ischemic heart disease Chronic ischemic heart disease, unspecified Chronic systolic (congestive) heart failure (HCC) Essential hypertension Unspecified essential hypertension Mixed hyperlipidemia Paroxysmal atrial fibrillation (HCC) Atrial fibrillation Non-recurrent unilateral inguinal hernia without obstruction or gangrene [facility] Diagnosis Pre-op evaluation- Primary Preoperative examination, unspecified Malignant neoplasm of prostate (HCC) Malignant neoplasm of prostate Cardiomyopathy in diseases classified elsewhere (HCC) Chronic ischemic heart disease Chronic ischemic heart disease, unspecified Chronic systolic (congestive) heart failure (HCC) Essential hypertension Unspecified essential hypertension Mixed hyperlipidemia Paroxysmal atrial fibrillation (HCC) Atrial fibrillation Pre-op evaluation- Primary Preoperative examination, unspecified Paroxysmal atrial fibrillation (HCC) Atrial fibrillation Mixed hyperlipidemia Essential hypertension Unspecified essential hypertension Chronic systolic (congestive) heart failure (HCC) Coronary artery disease involving [place] coronary artery of [place] heart without angina pectoris Asthma, unspecified asthma severity, unspecified whether complicated, unspecified whether persistent History of prostate cancer Personal history of malignant neoplasm of prostate Non-recurrent unilateral inguinal hernia without obstruction or gangrene * Assessment & Plan Note - Haily Cline APRN.CNP - 10/03/2024 3:13 PM EST Associated Problem(s): History of prostate cancer Assessment: s/p radical prostatectomy and radiation ( 2023) Follows with urology, Radiation/ONC * Assessment & Plan Note - Haily Cline APRN.CNP - 10/03/2024 3:13 PM EST Associated Problem(s): Asthma Assessment: Receives Allergy shots, No current inhaler use. Stable per Pt. report * Assessment & Plan Note - Haily Cline APRN.CNP - 10/03/2024 3:12 PM EST Associated Problem(s): Coronary artery disease involving [place] coronary artery of [place] heart without angina pectoris Assessment: CAD 30-40% stenosis in LAD per 2020 CARDIAC CATH No stents Pt. currently Denies any new or worsening cardiovascular symptoms * Assessment & Plan Note - Haily Cline APRN.CNP - 10/03/2024 3:12 PM EST Associated Problem(s): Chronic systolic (congestive) heart failure (HCC) Assessment: Stable with current regimen , EF = 53 5%( 11/2023 ECHO ) Compensated * Assessment & Plan Note - Haily Cline APRN.CNP - 10/03/2024 3:09 PM EST Associated Problem(s): Essential hypertension Assessment: Managed with med, stable. Date: BP: 10/03/2024 119/69 09/21/2024 142/81 09/13/2024 134/83 * Assessment & Plan Note - Haily Cline APRN.CNP - 10/03/2024 3:09 PM EST Associated Problem(s): Mixed hyperlipidemia Assessment: Managed with Statin , Stable. * Assessment & Plan Note - Haily Cline APRN.CNP - 10/03/2024 3:09 PM EST Associated Problem(s): Paroxysmal atrial fibrillation (HCC) Assessment: Persistent, Long standing Rate controlled, did auscultate runs of increasing HR/frequency 10/03/2024 EKG performed; Stable, no acute changes observed. Pt. is Asymptomatic Follows with Dr. Adriana Soto ([facility] 09/29/2024) for Pre-op; Risk assessment completed. documented in this encounter [facility] note* Diagnosis Pre-op evaluation- Primary Preoperative examination, unspecified Malignant neoplasm of prostate (HCC) Malignant neoplasm of prostate Cardiomyopathy in diseases classified elsewhere (HCC) Chronic ischemic heart disease Chronic ischemic heart disease, unspecified Chronic systolic (congestive) heart failure (HCC) Essential hypertension Unspecified essential hypertension Mixed hyperlipidemia Paroxysmal atrial fibrillation (HCC) Atrial fibrillation Pre-op evaluation- Primary Preoperative examination, unspecified Paroxysmal atrial fibrillation (HCC) Atrial fibrillation Mixed hyperlipidemia Essential hypertension Unspecified essential hypertension Chronic systolic (congestive) heart failure (HCC) Coronary artery disease involving [place] coronary artery of [place] heart without angina pectoris Asthma, unspecified asthma severity, unspecified whether complicated, unspecified whether persistent (HCC) History of prostate cancer Personal history of malignant neoplasm of prostate Postop check- Primary Follow-up examination, following unspecified surgery documented in this encounter [facility] note* Diagnosis Pre-op evaluation- Primary Preoperative examination, unspecified Malignant neoplasm of prostate (HCC) Malignant neoplasm of prostate Cardiomyopathy in diseases classified elsewhere (HCC) Chronic ischemic heart disease Chronic ischemic heart disease, unspecified Chronic systolic (congestive) heart failure (HCC) Essential hypertension Unspecified essential hypertension Mixed hyperlipidemia Paroxysmal atrial fibrillation (HCC) Atrial fibrillation Pre-op evaluation- Primary Preoperative examination, unspecified Paroxysmal atrial fibrillation (HCC) Atrial fibrillation Mixed hyperlipidemia Essential hypertension Unspecified essential hypertension Chronic systolic (congestive) heart failure (HCC) Coronary artery disease involving [place] coronary artery of [place] heart without angina pectoris Asthma, unspecified asthma severity, unspecified whether complicated, unspecified whether persistent (HCC) History of prostate cancer Personal history of malignant neoplasm of prostate Erectile dysfunction following radical prostatectomy- Primary Impotence of organic origin documented in this encounter [facility] note* Diagnosis Pre-op evaluation- Primary Preoperative examination, unspecified Malignant neoplasm of prostate (HCC) Malignant neoplasm of prostate Cardiomyopathy in diseases classified elsewhere (HCC) Chronic ischemic heart disease Chronic ischemic heart disease, unspecified Chronic systolic (congestive) heart failure (HCC) Essential hypertension Unspecified essential hypertension Mixed hyperlipidemia Paroxysmal atrial fibrillation (HCC) Atrial fibrillation Pre-op evaluation- Primary Preoperative examination, unspecified Paroxysmal atrial fibrillation (HCC) Atrial fibrillation Mixed hyperlipidemia Essential hypertension Unspecified essential hypertension Chronic systolic (congestive) heart failure (HCC) Coronary artery disease involving [place] coronary artery of [place] heart without angina pectoris Asthma, unspecified asthma severity, unspecified whether complicated, unspecified whether persistent (HCC) History of prostate cancer Personal history of malignant neoplasm of prostate Malignant neoplasm of prostate (HCC)- Primary Malignant neoplasm of prostate [facility] this [facility]* Diagnosis Tinea corporis- Primary Dermatophytosis of the body Skin tag Unspecified hypertrophic and atrophic condition of skin Melanocytic nevus of trunk Benign neoplasm of skin of trunk, except scrotum Seborrheic keratosis Lentigines Actinic keratosis [facility] Narrative No data available for this section [facility] progress note No data available for this section [facility] reason for referral (narrative)* Diagnostic Procedure Only (Routine) - Authorized Specialty Diagnoses / Procedures Referred By Blas villarreal Referred To Contact MOLECULAR & FUNCTIONAL IMAGING Diagnoses Malignant neoplasm of prostate (HCC) Procedures NM CARDIAC PERF STRESS/PHARM MYOCARDIAL SPECT MULTIPLE STUDIES Roosevelt Bah MD [address] [place] [address] Molecular & Functional Imaging [address] [place] [address] Referral ID Status Reason Start Date Expiration Date Visits Requested Visits Authorized [id number] Authorized Auto-Generate d Referral Financial Clearance Required - OON Payor Patient Cleared - [employer] 10/07/2023 08/02/2024 1 1 [facility] for referral (narrative)* Outpatient Procedure (Routine) - Pending Review Specialty Diagnoses / Procedures Referred By Blas villarreal Referred To Contact [facility] Diagnoses Congestive heart failure, unspecified HF chronicity, unspecified heart failure type (HCC) Procedures ECHO ECHO TTHRC R-T 2D W/WOM-MODE COMPL SPEC&COLR D Roosevelt Bah MD [address] [place] [address] [facility] [place] [facility] [place] [address] Referral ID Status Reason Start Date Expiration Date Visits Requested Visits Authorized [id number] Pending Review Auto-Generat ed Referral 10/08/2023 10/07/2024 1 1 [facility] for referral (narrative)* Diagnostic Procedure Only (Routine) - Closed Specialty Diagnoses / Procedures Referred By Contac t Referred To Contact MOLECULAR & FUNCTIONAL IMAGING Diagnoses Malignant neoplasm of prostate (HCC) Procedures NM CARDIAC PERF STRESS/PHARM MYOCARDIAL SPECT MULTIPLE STUDIES Roosevelt Bah MD [address] [facility] [address] [place] [id number] Molecular & Functional Imaging [address] [place] [address] Referral ID Status Reason Start Date Expiration Date V isits Requested Visits Authorized [id number] Closed Auto-Generated Referral Financial Clearance Required - OON Payor Patient Cleared - [employer] 10/07/2023 08/02/2024 1 1 [facility] for referral (narrative)* Diagnostic Procedure Only (Routine) - Authorized Specialty Diagnoses / Procedures [facility] Referred To Contact MOLECULAR & FUNCTIONAL IMAGING Diagnoses Rising PSA following treatment for malignant neoplasm of prostate Procedures NM PET/CT PROSTATE WHOLE BODY IMAGING PET IMAGING CT ATTENUATION SKULL BASE MID-THIGH Arnulfo Kamara MD [facility] [place] [place] [address] Molecular & Functional Imaging [address] [place] [address] Referral ID Status Reason Start Date Expiration Date Visits Requested Visits Authorized [id number] Authorized Auto-Generat ed Referral 04/28/2024 05/28/2025 1 1 [facility] for referral (narrative)* Diagnostic Procedure Only (Routine) - New Request Specialty Diagnoses / Procedures [facility] Referred To Contact XR IMAGING Diagnoses Prostate cancer (HCC) Procedures XR FACIAL BONES 3V AP/LAT/WEEKS RADEX FACIAL BONES COMPLETE MINIMUM 3 VIEWS Arnulfo Kamara MD [address] [place] [address] [place] [address] Xr Imaging [place] [address] Referral ID Status Reason Start Date Expiration Date Visits Requested Visits Authorized [id number] New Request Auto-Generat ed Referral 4 06/22/2025 1 1 [facility] for visit Narrative* Auth/Cert Specialty Diagnoses / Procedures Referred By Blas villarreal Referred To Contact Diagnoses Unilateral primary osteoarthritis, right hip RIGHT HIP PAIN Procedures WA ARTHROPLASTY ACETABULAR AND PROXIMAL FEMORAL PROSTHETIC REPLACEMENT (TOTAL HIP ARTHROPLASTY) WITH OR WITHOUT AUTOGRAFT OR ALLOGRAFT ARTHROPLASTY HIP TOTAL RIGHT ANTERIOR Caryl Acevedo MD [address] [place] [address] Maria De Jesus [place] [address] [place] [address] Referral ID Status Reason Start Date Expiration Date Visits Re quested Visits Authorized [id number] 1 1 [facility] for visit Narrative* Diagnostic Procedure Only (Routine) - Closed Specialty Diagnoses / Procedures Referred By Blas villarreal Referred To Contact MOLECULAR & FUNCTIONAL IMAGING Diagnoses Malignant neoplasm of prostate (HCC) Procedures NM CARDIAC PERF STRESS/PHARM MYOCARDIAL SPECT MULTIPLE STUDIES Roosevelt Bah MD [address] [facility] [address] [place] [id number] Molecular & Functional Imaging [address] [place] [address] Referral ID Status Reason Start Date Expiration Date V isits Requested Visits Authorized [id number] Closed Auto-Generated Referral Financial Clearance Required - OON Payor Patient Cleared - [employer] 10/07/2023 08/02/[address] [facility] Summary Purpose Family History No Family [...] FoundDocuments on File Type Date Recorded Patient [employer] anation Power of Digital Data Analyst Latest Code Status on File Code Status [...] Referred By Contac t Referred To Contact General Surgery Diagnoses Non-recurrent unilateral inguinal hernia without obstruction or gangrene Procedures CONSULT TO GENERAL SURGERY OFFICE/OUTPATIENT NEW HIGH MDM 60 MINUTES Arnulfo Kamara MD [address] [place] [address] [place] [address] Referral ID Status Reason Start Date Expiration Date Visits Requested Visits Authorized [id number] Authorized PCP Requested Referral 08/26/2024 08/26/2025 1 1 Specialty Diagnoses / Procedures Referred By Contac t Referred To Contact Diagnoses Prostate cancer (HCC) Procedures CT SIM PLANNING RADIATION ONCOLOGY THER RAD SIMULAJ-AIDED FIELD SETTING COMPLEX Arnulfo Kamara MD [address] [place] [address] [place] [address] Referral ID Status Reason Start Date Expiration Date Visits Requested Visits Authorized [id number] New Request PCP Requested Referral 06/06/2024 09/04/2024 1 1 Specialty Diagnoses / Procedures Referred By Contac t Referred To Contact MR IMAGING Diagnoses History of prostate cancer Procedures MRI CERVICAL SPINE WO/W IVCON MRI SPINAL CANAL CERVICAL W/O & W/CONTR MATRL Arnulfo Kamara MD [address] [place] [address] [place] [address] [place] [address] Referral ID Status Reason Start Date Expiration Date Visits Requested Visits Authorized [id number] New Request Auto-Generat ed Referral 06/18/2025 1 1 Specialty Diagnoses / Procedures Referred By Contac t Referred To Contact Diagnoses History of prostate cancer Procedures CT SIM PLANNING RADIATION ONCOLOGY THER RAD SIMULAJ-AIDED FIELD SETTING COMPLEX Arnulfo Kamara MD [address] [place] [address] [place] [address] Referral ID Status Reason Start Date Expiration Date Visits Requested Visits Authorized [id number] New Request PCP Requested Referral 08/17/2024 1 1 Specialty Diagnoses / Procedures Referred By Contac t Referred To Contact Radiation Oncology Diagnoses History of prostate cancer Rising PSA following treatment for malignant neoplasm of prostate Procedures RAD/ONC CONSULT OFFICE/OUTPATIENT NEW HIGH MDM 60 MINUTES Katrina Warner APRN.ELECTRIC TRUCKER [address] [place] [address] Referral ID Status Reason Start Date Expiration Date Visits Requested Visits Authorized [id number] Authorized PCP Requested Referral 04/07/2024 04/07/2025 1 1 Specialty Diagnoses / Procedures Referred By Contac t Referred To Contact [facility] Diagnoses PREETI (stress urinary incontinence), male Procedures CONSULT TO PHYSICAL THERAPY PHYSICAL THERAPY EVALUATION HIGH COMPLEX 45 MINS Katrina Warner, INTERNET DESIGNER.ELECTRIC TRUCKER [address] [place] [address] [facility] [place] [address] Referral ID Status Reason Start Date Expiration Date Visits Requested Visits Authorized [id number] Pending Review PCP Requested Referral Auto-Generate d Referral 12/30/2023 12/29/2024 99 99 Additional Source Comments (unrecognized sect ion and content) No Status Records FoundNo Status Records FoundNo Status Records FoundNo Status Records FoundNo Status Records FoundNo Status Records FoundNo Status Records FoundNo Status Records FoundNo Status Records Found INFORMATION SOURCE (unrecogn ized section and content) DATE CREATED AUTHOR 02/07/2021 [facility] DATE CREATED AUTHOR AUTHOR'S ORGANIZ ATION 06/28/2021 [place] DATE CREATED AUTHOR AUTHOR'S ORGANIZ ATION 05/29/2022 [facility] DATE CREATED AUTHOR AUTHOR'S ORGANIZ ATION 09/17/2023 Gaurav Monroy [facility] DATE CREATED AUTHOR AUTHOR'S ORGANIZ ATION 09/18/2023 [facility] DATE CREATED AUTHOR AUTHOR'S ORGANIZ ATION 10/19/2024 [facility] DATE CREATED AUTHOR AUTHOR'S ORGANIZ ATION 12/10/2024 [facility] DATE CREATED AUTHOR AUTHOR'S ORGANIZ ATION 12/17/2024 [facility] DATE CREATED AUTHOR AUTHOR'S ORGANIZ ATION 03/03/2025 [facility] EPIC Reason for Visit (unrecogniz ed section and content) Reason Comments Pre-op Exam Reason Comments Nm Pet Request Reason Comments Pre-Op Teaching Specialty Diagnoses / Procedures Referred By Contac t Referred To Contact ANESTHESIOLOGY Diagnoses Malignant neoplasm of prostate (HCC) Procedures REFER TO PACC - PRE ANESTHESIA CONSULTATION CLINIC OFFICE/OUTPATIENT NEW HIGH MDM 60 MINUTES Roosevelt Bah MD [address] [place] [address] Pre Anes Main [address] [place] [address] Referral ID Status Reason Start Date Expiration Date V isits Requested Visits Authorized [id number] Closed PCP Requested Referral Financial Clearance Required - OON Payor Patient Cleared - [facility] 10/06/2023 10/04/2024 1 1 Specialty Diagnoses / Procedures Referred By Contac t Referred To Contact ANESTHESIOLOGY Diagnoses Malignant neoplasm of prostate (HCC) Procedures REFER TO PACC - PRE ANESTHESIA CONSULTATION CLINIC OFFICE/OUTPATIENT NEW HIGH MDM 60 MINUTES Roosevelt Bah MD [address] [place] [address] Pre Anes Main [address] [place] [address] Specialty Diagnoses / Procedures Referred By Contac t Referred To Contact [facility] Diagnoses Prostate Cancer Procedures NEW PATIENT VISIT Chadd Weeks MD [address] [place] [address] [facility] [address] [place] [id number] Referral ID Status Reason Start Date Expiration Date V isits Requested Visits Authorized [id number] Closed Financial Clearance Required - OON Payor Patient Cleared - [facility] 09/18/2023 12/17/2023 1 1 Reason Comments Returning [...] NEW HIGH MDM 60 MINUTES Katrina Warner APRN.ELECTRIC TRUCKER [address] [place] [address] Referral ID Status Reason Start Date Expiration Date V isits Requested Visits Authorized [id number] Closed PCP Requested Referral 04/07/2024 04/07/2025 1 1 Reason Comments Orders Reason Comments Radiology NM Specialty Diagnoses / Procedures Referred By Contac t Referred To Contact MOLECULAR & FUNCTIONAL IMAGING Diagnoses Rising PSA following treatment for malignant neoplasm of prostate Procedures NM PET/CT PROSTATE WHOLE BODY IMAGING PET IMAGING CT ATTENUATION SKULL BASE MID-THIGH Arnulfo Kamara MD [address] [place] [address] [place] [address] Molecular & Functional Imaging [address] [place] [address] Referral ID Status Reason Start Date Expiration Date V isits Requested Visits Authorized [id number] Closed Auto-Generate d Referral 04/28/2024 05/28/2025 1 1 Reason Onset Date Comments Refill Request 05/17/2024 Reason Comments Prostate Cancer Eligard NOT Given Reason Onset Date Comments Simulation Request Form 05/19/2024 Prostate Cancer Reason Comments Orders Reason Comments Prostate Cancer Specialty Diagnoses / Procedures Referred By Contac t Referred To Contact Diagnoses Malignant neoplasm of prostate (HCC) Arnulfo Kamara MD [address] [place] [address] [place] [address] Jose Treat Joseph [address] [place] [address] Referral ID Status Reason Start Date Expiration Date V isits Requested Visits Authorized [id number] Authorized 06/06/2024 09/04/2024 99 99 Reason Onset Date Comments Simulation Request Form 06/06/2024 Reason Comments Medication Update Orgovyx Reason Comments Radiotherapy On-treatment Visit Reason Comments Prostate Cancer Radiotherapy On-treatment Visit Reason Comments Follow-up Reason Comments Prostate Cancer Reason Comments Future Appointment Reason Comments eligard injection Specialty Diagnoses / Procedures Referred By Contac t Referred To Contact Diagnoses Malignant neoplasm of prostate (HCC) Arnulfo Kamara MD [address] [place] [address] [place] [address] Phone: tel: fax: Arnulfo Kamara MD [address] [place] [address] [place] [address] Phone: tel: fax: Referral ID Status Reason Start Date Expiration Date V isits Requested Visits Authorized [id number] Authorized 09/13/2024 12/12/2024 99 99 Reason Comments Schedule Surgery Reason Comments Consult Patient here to disc uss inguinal hernia. Specialty Diagnoses / Procedures Referred By Contac t Referred To Contact General Surgery Diagnoses Non-recurrent unilateral inguinal hernia without obstruction or gangrene Procedures CONSULT TO GENERAL SURGERY OFFICE/OUTPATIENT [facility] 60 MINUTES Arnulfo Kamara MD [address] [place] [address] [place] [address] Phone: tel: fax: Referral ID Status Reason Start Date Expiration Date V isits Requested Visits Authorized [id number] Closed PCP Requested Referral 08/26/2024 08/26/2025 1 1 Reason Comments Post Op Follow Up Pod 17 f/u after hav ing left inguinal hernia. Reason Onset Date Comments Refill Request 11/14/2024 Reason Comments Skin Check Care Teams (unrecognized sec tion and content) Wind Field Manager Relationship Specialty Start Date End Date Alek Fatima MD [address] [place] [id number] PCP - General Family Medicine 06/04/21 Team Status: Inactive Member Role Status Dates Chadd Weeks MD Attending Provider Active St art: August 25, 2023 End: August 25, 2023 Team Status: Active Member Role Status Dates Alek Fatima MD Primary Care Provider Active Team Status: Inactive Member Role Status Dates Chadd Weeks MD Attending Provider Active St art: September 14, 2023 End: September 14, 2023 Alek Fatima MD Primary Care Provider Active Start: September 14, 2023 End: September 14, 2023 Wind Field Manager Relationship Specialty Start Date End Date Alek Fatima MD [address] [place] [address] PCP - General Family Medicine 10/14/23 Wind Field Manager Relationship Specialty Start Date End Date Alek Fatima MD [address] [place] [address] PCP - General Family Medicine 10/14/23 Wind Field Manager Relationship Specialty Start Date End Date Alek Fatima MD [address] [place] [id number] PCP - General Family Medicine 10/14/23 Wind Field Manager Relationship Specialty Start Date End Date Alek Fatima MD [address] [place] [address] PCP - General Family Medicine 10/14/23 Wind Field Manager Relationship Specialty Start Date End Date Alek Fatima MD [address] [place] [id number] PCP - General Family Medicine 10/14/23 Wind Field Manager Relationship Specialty Start Date End Date Alek Fatima MD [address] [place] [address] PCP - General Family Medicine 10/14/23 Wind Field Manager Relationship Specialty Start Date End Date Alek Fatima MD [address] [place] [address] PCP - General Family Medicine 10/14/23 Wind Field Manager Relationship Specialty Start Date End Date Alek Fatima MD [address] [place] [id number] PCP - General Family Medicine 10/14/23 Wind Field Manager Relationship Specialty Start Date End Date Alek Fatima MD [address] [place] [id number] PCP - General Family Medicine 10/14/23 Wind Field Manager Relationship Specialty Start Date End Date Alek Fatima MD [address] [place] [id number] PCP - General Family Medicine 10/14/23 Wind Field Manager Relationship Specialty Start Date End Date Alek Fatima MD [address] [place] [id number] PCP - General Family Medicine 10/14/23 Wind Field Manager Relationship Specialty Start Date End Date Alek Fatima MD [address] [place] [id number] PCP - General Family Medicine 10/14/23 Wind Field Manager Relationship Specialty Start Date End Date Alek Fatima MD [address] [place] [id number] PCP - General Family Medicine 10/14/23 Wind Field Manager Relationship Specialty Start Date End Date Alek Fatima MD [address] [place] [id number] PCP - General Family Medicine 10/14/23 Wind Field Manager Relationship Specialty Start Date End Date Alek Fatima MD [address] [place] [address] PCP - General Family Medicine 10/14/23 Wind Field Manager Relationship Specialty Start Date End Date Alek Fatima MD [address] [place] [facility] [place] [address] PCP - General Family Medicine 10/14/23 Wind Field Manager Relationship Specialty Start Date End Date Alek Fatima MD [address] [place] [address] PCP - General Family Medicine 10/14/23 Wind Field Manager Relationship Specialty Start Date End Date Alek Fatima MD [address] [place] [address] PCP - General Family Medicine 10/14/23 Wind Field Manager Relationship Specialty Start Date End Date Alek Fatima MD [address] [place] [facility] [place] [address] PCP - General Family Medicine 10/14/23 Wind Field Manager Relationship Specialty Start Date End Date Alek Fatima MD [address] [place] [facility] [place] [address] PCP - General Family Medicine 10/14/23 Wind Field Manager Relationship Specialty Start Date End Date Alek Fatima MD [address] [place] [facility] [place] [address] PCP - General Family Medicine 10/14/23 Wind Field Manager Relationship Specialty Start Date End Date Alek Fatima MD [address] [place] [address] PCP - General Family Medicine 10/14/23 Wind Field Manager Relationship Specialty Start Date End Date Alek Fatima MD [address] [place] [facility] [place] [address] PCP - General Family Medicine 10/14/23 Wind Field Manager Relationship Specialty Start Date End Date Alek Fatima MD [address] [place] [facility] [place] [address] PCP - General Family Medicine 10/14/23 Wind Field Manager Relationship Specialty Start Date End Date Alek Fatima MD [address] [place] [address] PCP - General Family Medicine 10/14/23 Wind Field Manager Relationship Specialty Start Date End Date Alek Fatima MD [address] [place] [address] PCP - General Family Medicine 10/14/23 Wind Field Manager Relationship Specialty Start Date End Date Alek Fatima MD [address] [place] [address] PCP - General Family Medicine 10/14/23 Wind Field Manager Relationship Specialty Start Date End Date Alek Fatima MD [address] [place] [address] PCP - General Family Medicine 10/14/23 Wind Field Manager Relationship Specialty Start Date End Date Alek Fatima MD [address] [place] [address] PCP - General Family Medicine 10/14/23 Wind Field Manager Relationship Specialty Start Date End Date Alek Fatima MD [address] [place] [address] PCP - General Family Medicine 10/14/23 Wind Field Manager Relationship Specialty Start Date End Date Alek Fatima MD [address] [place] [address] PCP - General Family Medicine 10/14/23 Wind Field Manager Relationship Specialty Start Date End Date Alek Fatima MD [address] [place] [address] PCP - General Family Medicine 10/14/23 Wind Field Manager Relationship Specialty Start Date End Date Alek Fatima MD [address] [place] [address] PCP - General Family Medicine 10/14/23 Adriana Huff MD [address] [place] [phone] Cardiology 09/22/24 Adriana Huff MD [address] [place] [address] Cardiology 09/28/24 Wind Field Manager Relationship Specialty Start Date End Date Alek Fatima MD [address] [place] [address] PCP - General Family Medicine 10/14/23 Adriana Huff MD [address] [place] [phone] Cardiology 09/22/24 Adriana Huff MD [address] [place] [address] Cardiology 09/28/24 Wind Field Manager Relationship Specialty Start Date End Date Alek Fatima MD [address] [place] [address] PCP - General Family Medicine 10/14/23 Adriana Huff MD [address] [facility] [place] [phone] Cardiology 09/22/24 Adriana Huff MD [address] [place] [address] Cardiology 09/28/24 Wind Field Manager Relationship Specialty Start Date End Date Alek Fatima MD [address] [place] [address] PCP - General Family Medicine 10/14/23 Adriana Huff MD [address] [facility] [place] [phone] Cardiology 09/22/24 Adriana Huff MD [address] [place] [address] Cardiology 09/28/24 Wind Field Manager Relationship Specialty Start Date End Date Alek Fatima MD [address] [place] [address] PCP - General Family Medicine 10/14/23 Adriana Huff MD [address] [facility] [place] [phone] Cardiology 09/22/24 Adriana Huff MD [address] [place] [address] Cardiology 09/28/24 Goals (unrecognized section and content) Goals may be documented in a n alternate section Source Comments (unrecognize d section and content) In the event this informatio n is protected by the Federal Confidentiality of Alcohol and Drug Abuse Patient Records regulations: The Federal rules restrict any use of the information to criminally investigate or prosecute any alcohol or drug abuse patient.[facility] the event this information is protected by the Federal Confidentiality of Alcohol and Drug Abuse Patient Records regulations: The Federal rules restrict any use of the information to criminally investigate or prosecute any alcohol or drug abuse patient.[facility] HospitalIn the event this information is protected by the Federal Confidentiality of Alcohol and Drug Abuse Patient Records regulations: The Federal rules restrict any use of the information to criminally investigate or prosecute any alcohol or drug abuse patient.[facility] HospitalIn the event this information is protected by the Federal Confidentiality of Alcohol and Drug Abuse Patient Records regulations: The Federal rules restrict any use of the information to criminally investigate or prosecute any alcohol or drug abuse patient.[facility] HospitalIn the event this information is protected by the Federal Confidentiality of Alcohol and Drug Abuse Patient Records regulations: The Federal rules restrict any use of the information to criminally investigate or prosecute any alcohol or drug abuse patient.[facility] HospitalIn the event this information is protected by the Federal Confidentiality of Alcohol and Drug Abuse Patient Records regulations: The Federal rules restrict any use of the information to criminally investigate or prosecute any alcohol or drug abuse patient.[facility] HospitalIn the event this information is protected by the Federal Confidentiality of Alcohol and Drug Abuse Patient Records regulations: The Federal rules restrict any use of the information to criminally investigate or prosecute any alcohol or drug abuse patient.[facility] HospitalIn the event this information is protected by the Federal Confidentiality of Alcohol and Drug Abuse Patient Records regulations: The Federal rules restrict any use of the information to criminally investigate or prosecute any alcohol or drug abuse patient.[facility] HospitalIn the event this information is protected by the Federal Confidentiality of Alcohol and Drug Abuse Patient Records regulations: The Federal rules restrict any use of the information to criminally investigate or prosecute any alcohol or drug abuse patient.[facility] HospitalIn the event this information is protected by the Federal Confidentiality of Alcohol and Drug Abuse Patient Records regulations: The Federal rules restrict any use of the information to criminally investigate or prosecute any alcohol or drug abuse patient.[facility] HospitalIn the event this information is protected by the Federal Confidentiality of Alcohol and Drug Abuse Patient Records regulations: The Federal rules restrict any use of the information to criminally investigate or prosecute any alcohol or drug abuse patient.[facility] the event this information is protected by the Federal Confidentiality of Alcohol and Drug Abuse Patient Records regulations: The Federal rules restrict any use of the information to criminally investigate or prosecute any alcohol or drug abuse patient.[facility] HospitalIn the event this information is protected by the Federal Confidentiality of Alcohol and Drug Abuse Patient Records regulations: The Federal rules restrict any use of the information to criminally investigate or prosecute any alcohol or drug abuse patient.[facility] HospitalIn the event this information is protected by the Federal Confidentiality of Alcohol and Drug Abuse Patient Records regulations: The Federal rules restrict any use of the information to criminally investigate or prosecute any alcohol or drug abuse patient.[facility] HospitalIn the event this information is protected by the Federal Confidentiality of Alcohol and Drug Abuse Patient Records regulations: The Federal rules restrict any use of the information to criminally investigate or prosecute any alcohol or drug abuse patient.[facility] HospitalIn the event this information is protected by the Federal Confidentiality of Alcohol and Drug Abuse Patient Records regulations: The Federal rules restrict any use of the information to criminally investigate or prosecute any alcohol or drug abuse patient.[facility] HospitalIn the event this information is protected by the Federal Confidentiality of Alcohol and Drug Abuse Patient Records regulations: The Federal rules restrict any use of the information to criminally investigate or prosecute any alcohol or drug abuse patient.[facility] HospitalIn the event this information is protected by the Federal Confidentiality of Alcohol and Drug Abuse Patient Records regulations: The Federal rules restrict any use of the information to criminally investigate or prosecute any alcohol or drug abuse patient.[facility] HospitalIn the event this information is protected by the Federal Confidentiality of Alcohol and Drug Abuse Patient Records regulations: The Federal rules restrict any use of the information to criminally investigate or prosecute any alcohol or drug abuse patient.[facility] HospitalIn the event this information is protected by the Federal Confidentiality of Alcohol and Drug Abuse Patient Records regulations: The Federal rules restrict any use of the information to criminally investigate or prosecute any alcohol or drug abuse patient.[facility] HospitalIn the event this information is protected by the Federal Confidentiality of Alcohol and Drug Abuse Patient Records regulations: The Federal rules restrict any use of the information to criminally investigate or prosecute any alcohol or drug abuse patient.[facility] HospitalIn the event this information is protected by the Federal Confidentiality of Alcohol and Drug Abuse Patient Records regulations: The Federal rules restrict any use of the information to criminally investigate or prosecute any alcohol or drug abuse patient.[facility] HospitalIn the event this information is protected by the Federal Confidentiality of Alcohol and Drug Abuse Patient Records regulations: The Federal rules restrict any use of the information to criminally investigate or prosecute any alcohol or drug abuse patient.[facility] HospitalIn the event this information is protected by the Federal Confidentiality of Alcohol and Drug Abuse Patient Records regulations: The Federal rules restrict any use of the information to criminally investigate or prosecute any alcohol or drug abuse patient.[facility] HospitalIn the event this information is protected by the Federal Confidentiality of Alcohol and Drug Abuse Patient Records regulations: The Federal rules restrict any use of the information to criminally investigate or prosecute any alcohol or drug abuse patient.[facility] HospitalIn the event this information is protected by the Federal Confidentiality of Alcohol and Drug Abuse Patient Records regulations: The Federal rules restrict any use of the information to criminally investigate or prosecute any alcohol or drug abuse patient.[facility] HospitalIn the event this information is protected by the Federal Confidentiality of Alcohol and Drug Abuse Patient Records regulations: The Federal rules restrict any use of the information to criminally investigate or prosecute any alcohol or drug abuse patient.[facility] HospitalIn the event this information is protected by the Federal Confidentiality of Alcohol and Drug Abuse Patient Records regulations: The Federal rules restrict any use of the information to criminally investigate or prosecute any alcohol or drug abuse patient.[facility] HospitalIn the event this information is protected by the Federal Confidentiality of Alcohol and Drug Abuse Patient Records regulations: The Federal rules restrict any use of the information to criminally investigate or prosecute any alcohol or drug abuse patient.[facility] HospitalIn the event this information is protected by the Federal Confidentiality of Alcohol and Drug Abuse Patient Records regulations: The Federal rules restrict any use of the information to criminally investigate or prosecute any alcohol or drug abuse patient.[facility] HospitalIn the event this information is protected by the Federal Confidentiality of Alcohol and Drug Abuse Patient Records regulations: The Federal rules restrict any use of the information to criminally investigate or prosecute any alcohol or drug abuse patient.[facility] HospitalIn the event this information is protected by the Federal Confidentiality of Alcohol and Drug Abuse Patient Records regulations: The Federal rules restrict any use of the information to criminally investigate or prosecute any alcohol or drug abuse patient.[facility] HospitalIn the event this information is protected by the Federal Confidentiality of Alcohol and Drug Abuse Patient Records regulations: The Federal rules restrict any use of the information to criminally investigate or prosecute any alcohol or drug abuse patient.[facility] HospitalIn the event this information is protected by the Federal Confidentiality of Alcohol and Drug Abuse Patient Records regulations: The Federal rules restrict any use of the information to criminally investigate or prosecute any alcohol or drug abuse patient.[facility] HospitalIn the event this information is protected by the Federal Confidentiality of Alcohol and Drug Abuse Patient Records regulations: The Federal rules restrict any use of the information to criminally investigate or prosecute any alcohol or drug abuse patient.[facility] HospitalIn the event this information is protected by the Federal Confidentiality of Alcohol and Drug Abuse Patient Records regulations: The Federal rules restrict any use of the information to criminally investigate or prosecute any alcohol or drug abuse patient.[facility] HospitalIn the event this information is protected by the Federal Confidentiality of Alcohol and Drug Abuse Patient Records regulations: The Federal rules restrict any use of the information to criminally investigate or prosecute any alcohol or drug abuse patient.[facility] HospitalIn the event this information is protected by the Federal Confidentiality of Alcohol and Drug Abuse Patient Records regulations: The Federal rules restrict any use of the information to criminally investigate or prosecute any alcohol or drug abuse patient.[facility] HospitalIn the event this information is protected by the Federal Confidentiality of Alcohol and Drug Abuse Patient Records regulations: The Federal rules restrict any use of the information to criminally investigate or prosecute any alcohol or drug abuse patient.[facility] HospitalIn the event this information is protected by the Federal Confidentiality of Alcohol and Drug Abuse Patient Records regulations: The Federal rules restrict any use of the information to criminally investigate or prosecute any alcohol or drug abuse patient.[facility] HospitalIn the event this information is protected by the Federal Confidentiality of Alcohol and Drug Abuse Patient Records regulations: The Federal rules restrict any use of the information to criminally investigate or prosecute any alcohol or drug abuse patient.[facility] HospitalIn the event this information is protected by the Federal Confidentiality of Alcohol and Drug Abuse Patient Records regulations: The Federal rules restrict any use of the information to criminally investigate or prosecute any alcohol or drug abuse patient.[facility] HospitalIn the event this information is protected by the Federal Confidentiality of Alcohol and Drug Abuse Patient Records regulations: The Federal rules restrict any use of the information to criminally investigate or prosecute any alcohol or drug abuse patient.[facility] HospitalIn the event this information is protected by the Federal Confidentiality of Alcohol and Drug Abuse Patient Records regulations: The Federal rules restrict any use of the information to criminally investigate or prosecute any alcohol or drug abuse patient.[facility] HospitalIn the event this information is protected by the Federal Confidentiality of Alcohol and Drug Abuse Patient Records regulations: The Federal rules restrict any use of the information to criminally investigate or prosecute any alcohol or drug abuse patient.[facility] HospitalIn the event this information is protected by the Federal Confidentiality of Alcohol and Drug Abuse Patient Records regulations: The Federal rules restrict any use of the information to criminally investigate or prosecute any alcohol or drug abuse patient.[facility] HospitalIn the event this information is protected by the Federal Confidentiality of Alcohol and Drug Abuse Patient Records regulations: The Federal rules restrict any use of the information to criminally investigate or prosecute any alcohol or drug abuse patient.[facility] HospitalIn the event this information is protected by the Federal Confidentiality of Alcohol and Drug Abuse Patient Records regulations: The Federal rules restrict any use of the information to criminally investigate or prosecute any alcohol or drug abuse patient.[facility] HospitalIn the event this information is protected by the Federal Confidentiality of Alcohol and Drug Abuse Patient Records regulations: The Federal rules restrict any use of the information to criminally investigate or prosecute any alcohol or drug abuse patient.[facility] HospitalIn the event this information is protected by the Federal Confidentiality of Alcohol and Drug Abuse Patient Records regulations: The Federal rules restrict any use of the information to criminally investigate or prosecute any alcohol or drug abuse patient.[facility] HospitalIn the event this information is protected by the Federal Confidentiality of Alcohol and Drug Abuse Patient Records regulations: The Federal rules restrict any use of the information to criminally investigate or prosecute any alcohol or drug abuse patient.[facility] HospitalIn the event this information is protected by the Federal Confidentiality of Alcohol and Drug Abuse Patient Records regulations: The Federal rules restrict any use of the information to criminally investigate or prosecute any alcohol or drug abuse patient.[facility] HospitalIn the event this information is protected by the Federal Confidentiality of Alcohol and Drug Abuse Patient Records regulations: The Federal rules restrict any use of the information to criminally investigate or prosecute any alcohol or drug abuse patient.[facility] HospitalIn the event this information is protected by the Federal Confidentiality of Alcohol and Drug Abuse Patient Records regulations: The Federal rules restrict any use of the information to criminally investigate or prosecute any alcohol or drug abuse patient.[facility] HospitalIn the event this information is protected by the Federal Confidentiality of Alcohol and Drug Abuse Patient Records regulations: The Federal rules restrict any use of the information to criminally investigate or prosecute any alcohol or drug abuse patient.[facility] HospitalIn the event this information is protected by the Federal Confidentiality of Alcohol and Drug Abuse Patient Records regulations: The Federal rules restrict any use of the information to criminally investigate or prosecute any alcohol or drug abuse patient.[facility] HospitalIn the event this information is protected by the Federal Confidentiality of Alcohol and Drug Abuse Patient Records regulations: The Federal rules restrict any use of the information to criminally investigate or prosecute any alcohol or drug abuse patient.[facility] HospitalIn the event this information is protected by the Federal Confidentiality of Alcohol and Drug Abuse Patient Records regulations: The Federal rules restrict any use of the information to criminally investigate or prosecute any alcohol or drug abuse patient.[facility] HospitalIn the event this information is protected by the Federal Confidentiality of Alcohol and Drug Abuse Patient Records regulations: The Federal rules restrict any use of the information to criminally investigate or prosecute any alcohol or drug abuse patient.[facility] HospitalIn the event this information is protected by the Federal Confidentiality of Alcohol and Drug Abuse Patient Records regulations: The Federal rules restrict any use of the information to criminally investigate or prosecute any alcohol or drug abuse patient.[facility] HospitalIn the event this information is protected by the Federal Confidentiality of Alcohol and Drug Abuse Patient Records regulations: The Federal rules restrict any use of the information to criminally investigate or prosecute any alcohol or drug abuse patient.[facility] FOR RECORDS PERTAINING TO PATIENTS WHO ARE [...] BE BASED ON THE PRIMARY CLINICAL RECORDS. [facility] Maude Norton [facility]. provides no warranty or guarantee of the accuracy or completeness of information in this document.
--- NOTE | 2025-03-06 11:09 | XR_ITS ---
[facility] [place] [id number] Patient Name: SUKHDEEP POLANCO MRN: [id number] date: 1960 Sex: M Assigned Patient Location: LAB Current Patient Location: LAB Accession/Order Number: [id number] Exam Date: 03/06/2025 12:56 Report Date: 03/06/2025 12:58 At the request of: ALEK FATIMA MD Procedure: XR wrist LT min 3V LEFT WRIST - 3 views CLINICAL HISTORY: Left Acute Wrist Pain COMPARISON: None FINDINGS: Soft tissue swelling is present. Vascular calcifications are seen. There appears be a fracture involving the scaphoid bone as well as the styloid process of the radius. No bony erosions. XR/XR wrist LT min 3V IMPRESSION: THERE APPEARS TO BE A FRACTURE INVOLVING THE SCAPHOID BONE WELL THE STYLOID PROCESS OF THE RADIUS. THERE IS ASSOCIATED SOFT TISSUE SWELLING. CORRELATION WITH AREA OF PAIN IS RECOMMENDED. Impression dictated by: Shahriar Urrutia Jr., D.O. 03/06/2025 12:58 PM Dictation Location: [place] [address] Electronically authenticated by: [id number] Y Date: 03/06/2025 12:58
[2025-03-06 11:14] LABS: Hematocrit 40.5 % (42.0-54.0); Hemoglobin 12.9 g/dL (14.0-18.0); Mean Corpuscular HGB Conc 31.9 g/dL (29.9-35.2); Mean Corpuscular Hemoglobin 29.6 pg (25.9-34.0); Mean Corpuscular Volume 92.9 fL (80.0-94.0); Platelet Count 202 10^3/uL (150-450); Red Blood Count 4.36 10^6/uL (4.70-6.10); White Blood Count 8.8 10^3/uL (4.0-11.0)
[2025-03-06 11:27] LABS: INR 3.60; Prothrombin Time 33.6 sec (9.0-11.6)
[2025-03-06 11:33] LABS: Alanine Aminotransferase 25 U/L (16-63); Albumin Globulin Ratio 0.9; Albumin Level 3.2 g/dL (3.4-5.0); Alkaline Phosphatase 92 U/L (46-116); Anion Gap 9.2; Aspartate Amino Transferase 11 U/L (15-37); Blood Urea Nitrogen 21.0 mg/dL (7.0-18.0); Calcium 9.0 mg/dL (8.5-10.1); Carbon Dioxide 27.7 mmol/L (21.0-32.0); Chloride 106 mmol/L (98-107); Estimated GFR (African America >60 (>=60 mL/min/1.73m^2); Estimated GFR (Non-African Ame >60 (>=60 mL/min/1.73m^2); Globulin 3.6 g/dL; Glucose 111 mg/dL (74-106); Potassium 3.9 mmol/L (3.5-5.1); Sodium 139 mmol/L (136-145); Total Protein 6.8 g/dL (6.4-8.2); Uric Acid 3.4 mg/dL (3.5-7.2)
[2025-03-06 11:51] LABS: Basophils Abs Manual 0.08 10^3/uL (0.00-0.10); Basophils Percent Manual 1.0 % (0.2-2.0); Eosinophils Absolute Manual 0.26 10^3/uL (0.00-0.70); Eosinophils Percent Manual 3.0 % (0.9-7.0); Lymphocytes Absolute Manual 0.61 10^3/uL (1.20-3.80); Lymphocytes Percent Manual 7.0 % (20.5-60.0); Monocytes Absolute Manual 0.70 10^3/uL (0.30-0.80); Monocytes Percent Manual 8.0 % (1.7-12.0); Segmented Neut Absolute Manual 7.12 10^3/uL (1.4-6.5); Segmented Neutrophils % Manual 81.0 (43.0-75.0)
[2025-03-07 11:08] LABS: Antinuclear Antibodies, IFA Negative (.)
== END 2025-03-06 10:24 | disposition home or self-care (01) ==
PROVIDERS: PCP Family Medicine; Visit Provider Family Medicine
DX: M25.532 Pain in left wrist (principal); I10 Essential (primary) hypertension; R53.83 Other fatigue; M25.50 Pain in unspecified joint; I48.91 Unspecified atrial fibrillation; Z79.899 Other long term (current) drug therapy
CPT/HCPCS: 36415; 73110; 80053; 84550; 85007; 85027; 85610; 85652; 86038; 86060; 86140; 86431